=== PATIENT | female | born 1950 | race Caucasian/White ===

== ENCOUNTER 2016-03-24 13:00 | Inpatient (IN) | payer OTHER ==
[~2016-03-24] VITALS: Ht 170.2 cm; Wt 134.7 kg
[~2016-03-24 13:00] MED LIST: /METO25TAB PO; ACET50TA PO; ACET65TA OR; ACTIVITY; ADV250INH INH; ALBU17IN INH; ALEV220T26 PO; ALEVE OR; ASPI1TAB PO; ASPI81TA7 PO; ATOR40TA PO; AUGM875T27 PO; AZIT500T2 PO; CLAR1TAB2 PO; CLAR5CHW OR; COLA100C2 PO; DOCU100C PO; ECOT325T5 OR; FOLLOW UP; FURO1TAB15 PO; FURO40TA2 PO; HYDR12.56 PO; HYDR12CA PO; HYDR25TA6 OR; LASI20TA PO; LASI40TA PO; LIPI80TA PO; LISI-538 PO; LISI20TA5 PO; LOPR50TA OR; LORA10TA2 PO; METF500T PO; METO12TA PO; METO25TAB PO; MILKSUS OR; MULTIVIT PO; PLAV75TA2 OR; POTA10CA PO; PRAD150C PO; PRED10TA PO; PRED10TA2 PO; PRED20TA PO; PROA1AER INH; SPIR1CAP INH; SYMB16INH INH; TIOT18INH INH; TYLE500T78 PO; VIBR100C PO; VICO5TAB OR; VICODIN OR; VITMTA PO; XANA0.25 OR; ZOCO80TA OR; [UNRECOGNIZED DRUG - OTHER]; [UNRECOGNIZED DRUG - SUPPLY]; aleve OR
[2016-03-24] MEDS ORDERED: methylPREDNISolone INJ 125 MG/2 ML VIAL (J2930) As Ordered ONE (13:18)
[2016-03-24] MEDS ORDERED: IPRATROPIUM 0.5MG/ALBUTEROL 2.5MG INH SOL UD 3ML (DUONEB)(J7620) As Ordered ONE (13:22)
[2016-03-24 13:43] LABS: ABG DEVICE NASAL CANN; ABG HCO3 23.8 MEQ/L (22.0-26.0); ABG PARTIAL PRESSURE CO2 45.3 mmHg (35.0-45.0); ABG PARTIAL PRESSURE O2 84.4 mmHg (75.0-100.0); ABG STANDARD HCO3 22.8 MEQ/L (22.0-26.0); ABG TOTAL CO2 25.2 MEQ/L (23.0-31.0); ABG pH (ARTERIAL) 7.339 UNITS (7.350-7.450)
--- NOTE | 2016-03-24 13:48 | REP ---
Clinical: Shortness of breath. Technique: PA and lateral. Comparison: 08/03/2015. Findings: Opacification of the left mid to lower lung zone suggests chronic changes with superimposed atelectasis/infiltrate and effusion. Medial right basilar atelectasis cannot be as excluded as well. Cardiomegaly appears similar to prior examination although the contour raises the possibility of underlying pericardial effusion. No pneumothorax. Skeletal structures demonstrate degenerative changes. Impression: Chronic stable changes. Cannot exclude superimposed bilateral atelectasis/infiltrates (left greater than right) and moderate left pleural effusion. Cardiac silhouette raises the possibility of underlying pericardial effusion. Signed by Linden Bruno MD 03/24/2016 01:39 P
[2016-03-24 14:29] LABS: BASO % 0.2 % (0.0-1.0); EOS # 0.1 K/mm3 (0.0-0.50); EOS % 0.8 % (0.0-3.0); LARGE UNSTAINED CELL # 0.1 K/mm3 (0.0-0.4); LYMPH # 0.8 K/mm3 (1.5-4.5); LYMPH % 7.4 % (24.0-44.0); MEAN CORPUSCULAR HEMOGLOBIN 24.8 pg (27.0-33.0); MEAN CORPUSCULAR HGB CONC 27.5 g/dl (32.0-36.5); MEAN CORPUSCULAR VOLUME 90.2 fl (80.0-96.0); MONO # 0.4 K/mm3 (0.0-0.8); MONO % 4.7 % (0.0-5.0); NEUTROPHILS % 85.9 % (36.0-66.0); PLATELET COUNT, AUTOMATED 338 k/mm3 (150-450); RED CELL DISTRIBUTION WIDTH 17.7 % (11.5-14.5); WHITE BLOOD COUNT 9.3 K/mm3 (4.0-10.0)
[2016-03-24 14:43] LABS: CALCIUM LEVEL 8.5 MG/DL (8.8-10.2); CREATININE FOR GFR 1.22 MG/DL (0.55-1.02); GLOMERULAR FILTRATION RATE 46.9 (>45); POTASSIUM SERUM 3.4 MEQ/L (3.5-5.1)
[2016-03-24] MEDS ORDERED: FURO1TAB15 PO (15:02)
[2016-03-24] MEDS ORDERED: LISI2.5T3 PO (15:02)
[2016-03-24] MEDS ORDERED: FLON1SPR (15:02)
[2016-03-24] MEDS ORDERED: BREO1INH3 INH (15:02)
[2016-03-24] MEDS ORDERED: METO12TA PO (15:02)
[2016-03-24] MEDS ORDERED: MUCI600T34 PO (15:02)
[2016-03-24] MEDS ORDERED: FURO40TA2 PO (15:02)
[2016-03-24] MEDS ORDERED: ONDANSETRON 4MG/2ML VIAL (J2405) As Ordered ONE (15:07)
[2016-03-24] MEDS ORDERED: cefTRIAXone SOD 1 GM VIAL (J0696) As Ordered ONE (15:28)
[2016-03-24] MEDS ORDERED: VANCOMYCIN HCL 1,000 MG, VIAL MATE ADAPTER 1 EACH in D5W 250 ML IV SCH (17:00)
[2016-03-24] MEDS ORDERED: PIPERACILLIN/TAZOBACTAM SOD 3.375 GM in D5W MINI-BAG PLUS 50 ML IV SCH (17:00)
[2016-03-24] MEDS ORDERED: ALBUTEROL SULFATE 2.5 MG/0.5 ML INH NEB SOLN NEB PRN (17:00)
[2016-03-24] MEDS ORDERED: ALBUTEROL 90 MCG/ACT 8GM HFA INHALER INH PRN (17:00)
[2016-03-24] MEDS ORDERED: DEXTROSE 50% 50 ML SYRINGE IV PRN (17:45)
[2016-03-24] MEDS ORDERED: GLUCOSE 4 GM CHEW TABLET PO PRN (17:45)
[2016-03-24] MEDS ORDERED: GLUCAGON FOR INJ 1 MG VIAL (J1610) SC PRN (17:45)
--- NOTE | 2016-03-24 18:28 | HPE ---
DATE OF ADMISSION: 03/24/2016 PRIMARY CARE PROVIDER: Dr. Ho in the [facility]. HISTORY OF PRESENT ILLNESS: This patient is a 66-year-old female with a past medical history significant for myocardial infarction, congestive heart failure (CHF), chronic obstructive pulmonary disease (COPD), diabetes, hypercholesterolemia, hypertension, who presented to [facility] on 03/24/2016 for worsening shortness of breath. The patient stated that she has increased shortness of breath, especially with any type of movement and symptoms have been progressively worse, and the patient started to have increased oxygen requirement. At baseline, the patient is 3 liters nasal cannula for her chronic COPD. The patient denies any sputum production. Denies any worsening cough. Denies any wheezing. The patient denies any lower extremity swelling. Denies any fever or chills. Other associated symptoms include that the patient started having increasing diarrhea for the past week. At baseline, the patient has a bowel movement once; however, for the past week, the patient started having two to three bowel movements and those stools are almost watery with minimal formed stool. Last hospitalization was in September 2013. Denies any recent sick contacts. When the patient arrived in the emergency room, the patient was found to have a blood pressure of 80/39 with a respiration rate of 24, oxygen saturation running between 85 to 90 with 2 to 3 liters nasal cannula. IV bolus was given, and the patient's systolic blood pressure started to rise above 100. The hospitalist team was called for admission. ALLERGIES: SULFA (rash). HOME MEDICATIONS: - Ventolin two inhalation every 4 hours as needed for shortness of breath - aspirin 81 mg by mouth daily - atorvastatin 40 mg by mouth daily - Pradaxa 150 mg by mouth twice a day - Flonase two sprays nasally for nasal congestion - Breo one puff inhalation daily - Lasix 80 mg by mouth daily - Lasix 40 mg by mouth at night - Mucinex 600 mg by mouth twice a day - Lisinopril 245 mg by mouth daily - Loratadine 10 mg by mouth daily as needed for allergies - metformin 500 mg by mouth twice a day - metoprolol 25 mg by mouth twice a day - multivitamin one tablet by mouth daily - potassium chloride 10 mEq by mouth twice a day - Spiriva inhalation daily PAST MEDICAL HISTORY: 1. COPD on 3 liters nasal cannula 2. Diastolic congestive heart failure (CHF), grade 2. 3. Obstructive sleep apnea. In the process of getting repeated sleep study for continuous positive airway pressure (CPAP) application. 4. Coronary artery disease, status post two stents. 5. Dyslipidemia. 6. Severe hypertension. 7. Morbid obesity. 8. Ischemic bowel. PAST SURGICAL HISTORY: 1. Colon resection in 2009 for ischemic bowel. 2. Hyatal hernia repair times two. 3. Coronary artery stents times two. 4. Right lumpectomy. SOCIAL HISTORY: The patient quit smoking 2014. The patient used to smoke one pack daily for approximately 48 years. Denies alcohol use. Last drink was in 2004. Denies any recreational drug use. REVIEW OF SYSTEMS: GENERAL: No fever. No chills. HEENT: No change in vision. No auditory changes. CARDIOVASCULAR: No chest pain noted. No palpitations. RESPIRATORY: Increased worsening shortness of breath exacerbated by any type of movement. Denies any wheezes. Denies any sputum changes. Denies any increase of cough or frequency. GASTROINTESTINAL: Diarrhea for the past week, stool is mainly water with no formed stool. No nausea. No vomiting. MUSCULOSKELETAL: No muscle pain or joint pain. NEUROLOGIC: No numbness or tingling. OBJECTIVE: VITAL SIGNS: Blood pressure is 80/39, pulse is 85, respirations 24, temperature is 98.1, pulse oximetry is 90% with 2 to 3 liters nasal cannula. Body weight is 148 kg. Body height is 170 cm. GENERAL: Fatigued. Mild distress secondary to difficulty breathing. Alert and oriented times three. HEENT: Normocephalic, atraumatic. Extraocular muscles intact. CARDIOVASCULAR: Positive S1, S2. Regular rate. LUNGS: Decreased breath sounds bilaterally. No wheezes appreciated. Mild crackles mainly on the left lower lobe. ABDOMEN: Morbidly obese, soft, nontender, nondistended. Bowel sounds present. EXTREMITIES: Mild bilateral lower extremity edema. No cyanosis. NEUROLOGIC: Sensation to fine touch grossly intact. Muscle strength 5/5. LABORATORY DATA: WBC 9.3, hemoglobin is 9.6, hematocrit is 34.8, platelet count is 338. Sodium is 142, potassium 3.4, chloride is 106, carbon dioxide 27, BUN 13, creatinine 1.22, GFR is 46.9, fasting glucose 103, lactic acid 4.1, calcium is 8.5, total CK is 33, troponin I is 0.04, BNP is 427. IMAGING STUDIES: Chest x-ray shows chronic stable changes. Cannot exclude superimposed bilateral atelectasis/infiltrate, left greater than right. Moderate left pleural effusion. SOFA score raises the probability of underlying pericardial effusion. CT of the chest without contrast, preliminary results show moderate left pleural effusion with basilar lingula atelectasis. Pulmonary vascular congestion. ASSESSMENT AND PLAN: 1. Acute respiratory distress. The patient will be admitted to the progressive care unit (PCU) under inpatient status. Currently, the patient presented with acute Sequential Organ Failure Assessment (SOFA) score of 2. The patient presents with significant hypotension with tachypnea. At this moment, we will panculture the patient and empirically start vancomycin and Zosyn and adjust the antibiotic regimen based on the culture results. The patient does have a history of congestive heart failure (CHF). The patient has chronic pleural effusion at baseline. However, at this moment, the patient does have a lactic acid of 4.1. IV fluid is warranted at the moment. Based on imaging studies and history, the source of infection could be either respiratory system versus gastrointestinal system. 2. Chronic obstructive pulmonary disease (COPD). Currently, the patient has respiratory distress. We are in the process of ruling out any infectious processes. The patient will have breathing treatment as needed, and at baseline the patient is on 3 liters nasal cannula for her COPD. Continue home breathing therapy. 3. Diastolic congestive heart failure (CHF) grade 2. The patient does not have worsening bilateral lower extremity swelling. The patient does have pleural effusions, left greater than right. When compared to CT today and in 2014, there is some worsening of the pleural effusion; however, currently, the patient has an elevated lactic acid with severe hypotension with a systolic blood pressure of 80s. We will start the patient on gentle hydration. If the patient starts having CHF exacerbation symptoms, we will slow down the fluid. 4. Obn-wqvojyk-hgnxxzgsd diabetes. We will hold metformin. The patient will be on sliding scale. 5. Hypercholesterolemia. The patient is on atorvastatin. 6. Hypertension. The patient has been taking metoprolol for her blood pressure and also Lasix. Lasix and metoprolol will be on hold with holding parameters. 7. Obstructive sleep apnea. The patient stated that she will have a repeated sleep study in March to apply for her CPAP. 8. History of myocardial infarction. The patient is on aspirin, metoprolol and Lisinopril at baseline. At this moment, the blood pressure medication is on hold due to hypotension. 9. Deep vein thrombosis (DVT) prophylaxis. The patient is taking Pradaxa.
--- NOTE | 2016-03-24 18:30 | EDDOCDS ---
Physician Documentation [facility] Name: Francisca Magaña Age: 66 yrs Sex: Female : 1950 Arrival Date: 03/24/2016 Time: 13:00 Bed 4 Private MD: [facility] Disposition: 03/24/16 15:10 Hospitalization ordered by Shanice Bang for Inpatient Admission. Preliminary diagnosis are Chronic obstructive pulmonary disease with (acute) exacerbation, Pleural effusion, not elsewhere classified, Hypotension. - Bed requested for PCU. - Status is Inpatient Admission. jmb - Condition is Stable. - Problem is new. - Symptoms are unchanged. Historical: - Allergies: SULFA (SULFONAMIDES) (Rash); - Home Meds: 1. Pradaxa 150 mg oral cap 1 cap 2 times per day 2. metoprolol tartrate 25 mg Oral tab 12.5 mg 2 times per day 3. atorvastatin 40 mg oral tab 1 tab once daily 4. ProAir HFA 108mcg inhalation HFAA 2 puffs every 6 hours every 2 hours as needed for SOB 5. Spiriva with HandiHaler 18 mcg Inhl CpDv 1 cap once daily 6. Symbicort 160-4.5 mcg/actuation inhalation HFAA 2 puffs 2 times per day 7. Breo Ellipta 200-25 mcg/dose inhalation dsdv 1 puff once daily 8. potassium chloride 10 mEq Oral TbER 1 tab 2 times per day 9. lisinopril 2.5 mg oral tab once daily 10. furosemide 80 mg oral tab 1 tab once daily 11. metformin 500 mg Oral tab 1 tab 2 times per day 12. hydrochlorothiazide 12.5 mg Oral tab 1 tab once daily 13. multivitamin Oral tab 1 tab daily 14. loratadine 10 mg Oral cap 10 mg daily as needed 15. aspirin 81 mg Oral TbEC 1 tab once daily 16. docusate calcium 240 mg Oral cap 1 cap 2 times per day - PMHx: CAD; CHF; COPD; Diabetes - NIDDM: controlled; Hypercholesterolemia; Hypertension; Myocardial infarction; Obesity; Sleep Apnea w/o CPAP; - PSHx: Colon Resection; Coronary Stents; Hernia repair; hernia revision; tendon repaired; - Social history: Smoking status: Patient states former smoker of tobacco. No barriers to communication noted, The patient speaks fluent Kosovan. - Family history: Not pertinent. - : The pt / caregiver states he / she is on anticoagulants: Pradaxa (Dabigatran) Home medication list is obtained from the patient, patients' pharmacy. [employer] import data. - Exposure Risk Screening:: None identified. Vital Signs: 03/24 13:24 BP 92 / 55; Pulse 85; Resp 24; Temp 98.1(O); Pulse Ox 90% on 2 lpm NC; Weight 148.32 kg dem1 / 326.99 lbs; Height 5 ft. 7 in. (170.18 cm); Pain 8/10; 14:19 BP 109 / 53 (auto/); jmb 14:19 Pulse 84 MON; Pulse Ox 97% ; jmb 14:20 BP 80 / 39 RA Supine (man/lg); jrd 15:08 BP 118 / 56 (auto/); jmb 15:08 Pulse 94 MON; Pulse Ox 93% ; jmb 15:38 BP 125 / 68 (auto/); jmb 15:38 Pulse 96 MON; Pulse Ox 87% ; jmb 15:50 BP 122 / 69 (auto/); jmb 15:50 Pulse 92 MON; Pulse Ox 91% ; jmb 15:53 BP 121 / 56 (auto/); jmb 15:54 Pulse 92 MON; Pulse Ox 90% ; jmb 16:08 BP 142 / 83 (auto/); jmb 16:09 Pulse 94 MON; Pulse Ox 90% ; jmb 16:38 BP 112 / 57 (auto/); jmb 16:39 Pulse 90 MON; Pulse Ox 93% ; jmb 16:53 BP 108 / 61 (auto/); jmb 16:54 Pulse 92 MON; Pulse Ox 96% ; jmb 17:08 BP 107 / 59 (auto/); jmb 17:09 Pulse 94 MON; Pulse Ox 89% ; jmb 17:38 BP 124 / 58 (auto/); jmb 17:39 Pulse 92 MON; Pulse Ox 91% ; jmb 18:17 BP 124 / 60; Pulse 93; Resp 22; Temp 97.8(O); Pulse Ox 91% on 4 lpm NC; Pain 0/10; jmb 13:24 Body Mass Index 51.21 (148.32 kg, 170.18 cm) dem1 MDM: 13:10 Continuous Improvement Intern/Pulse Ox/q 30 min VS ordered. br1 13:10 IV Saline Lock ordered. br1 13:10 Oxygen at 4L/Min NC or Home dosage ordered. br1 13:10 Rhythm Strip to chart ordered. br1 13:10 Undress patient appropriately for examination ordered. br1 13:12 B-Type Natiuretic Peptide Ordered. EDMS 13:12 Basic Metabolic Profile Ordered. EDMS 13:12 CBC with Diff Ordered. EDMS 13:12 Chest, 2 View (pa\E\lat) Ordered. EDMS 13:12 ECG WITH READING ER PHYS+CARDIAG ordered. EDMS 13:13 Albuterol-Ipratropium 1 neb Nebulizer every 20 minutes x3 ordered. br1 13:13 Call Respiratory ordered. br1 13:13 -Influenza A&B Rapid Antigen - Nose Ordered. EDMS 13:14 Solu-MEDROL 125 mg IVP once ordered. br1 13:14 -Arterial Blood Gas Ordered. EDMS 13:15 CARDIAC INJURY PROFILE Ordered. EDMS 13:15 TROPONIN Ordered. EDMS 13:31 Misc. Nursing Order ordered. br1 13:40 -Blood Culture (Adults Only), peripheral from different site, or from device/port/PICC br1 etc. if present ordered. 13:41 Lactic Acid (Rangel tube on ice) Ordered. EDMS 13:42 -Blood Culture Ordered. EDMS 14:15 -Arterial Blood Gas Reviewed. br1 14:15 Chest, 2 View (pa\E\lat) Reviewed. br1 14:16 -Blood Culture (Adults Only), peripheral from different site, or from device/port/PICC bcj etc. if present complete. 14:20 NS 0.9% 500 ml IV at bolus once ordered. br1 14:21 BED REQUEST+ADM ordered. EDMS 14:22 Ondansetron 4 mg IVP once ordered. br1 14:23 Call Respiratory complete. rs6 14:46 B-Type Natiuretic Peptide Reviewed. br1 14:46 Basic Metabolic Profile Reviewed. br1 14:46 CBC with Diff Reviewed. br1 14:46 -Influenza A&B Rapid Antigen - Nose Reviewed. br1 14:46 CARDIAC INJURY PROFILE Reviewed. br1 14:46 TROPONIN Reviewed. br1 14:59 Financial registration complete. hs2 15:05 Lactic Acid (Rangel tube on ice) Reviewed. br1 15:06 CT Chest Without Contrast Ordered. EDMS 15:06 Recheck B/P ordered. br1 15:06 cefTRIAXone 2 grams IVPB once over 30 mins; dilute in 50mL of NS or D5W ordered. br1 15:21 [facility] Payment Agreement was scanned into [employer] and attached to record. hs2 16:47 Admission / Observation Status ordered. EDMS 16:47 CONSISTENT CARBOHYDRATES ordered. EDMS 16:49 URINALYSIS Ordered. EDMS 16:49 BLOOD CULTURES Ordered. EDMS 16:49 BLOOD CULTURES Ordered. EDMS 16:51 GASTROINTESTINAL (GI) PANEL Ordered. EDMS 17:10 SPUTUM CULTURE AND GRAM STAIN Ordered. EDMS 17:32 CARDIAC MARKER PANEL Ordered. EDMS 17:34 LACTIC ACID LEVEL, LACTATE Ordered. EDMS Administered Medications: 13:30 Drug: Albuterol-Ipratropium 1 neb [ipratropium-albuterol 0.5 mg-3 mg(2.5 mg base)/3 mL js11 nebulization soln (1 neb)] Route: Nebulizer; 13:50 Drug: Albuterol-Ipratropium 1 neb [ipratropium-albuterol 0.5 mg-3 mg(2.5 mg base)/3 mL js11 nebulization soln (1 neb)] Route: Nebulizer; 14:01 Drug: Albuterol-Ipratropium 1 neb [ipratropium-albuterol 0.5 mg-3 mg(2.5 mg base)/3 mL js11 nebulization soln (1 neb)] Route: Nebulizer; 14:16 Drug: Solu-MEDROL 125 mg [Solu-Medrol 500 mg intravenous solution (125 mg)] Route: IVP; bcj Site: right forearm; 14:55 Drug: NS 0.9% 500 ml [sodium chloride 0.9 % intravenous solution] Route: IV; Rate: bcj bolus; Site: right forearm; 15:12 Drug: Ondansetron 4 mg [ondansetron HCl 2 mg/mL intravenous solution (2 mL)] Route: jmb IVP; Site: left forearm; 15:38 Drug: cefTRIAXone 2 grams [ceftriaxone 1 gram solution for injection] Route: IVPB; jmb Infused Over: 30 mins; Site: left forearm; Signatures: Dispatcher [employer] EDMS Kevin Rothman RN RN bcj Roggie, Brian, MD MD br1 Dino Bains,RN RN jmb Tanesha Ryan, RN RN sls2 Yamileth Coombs, LINEN ROOM ATTENDANT LINEN ROOM ATTENDANT rs6 Carlee Bell, Reg Reg hs2 Tato San js11 The chart was reviewed and I authenticate all verbal orders and agree with the evaluation and treatment provided.Corrections: (The following items were deleted from the chart) 13:15 13:12 CARDIAC INJURY PROFILE+LAB ordered. EDMS EDMS 13:15 13:12 TROPONIN+LAB ordered. EDMS EDMS 16:51 16:49 GASTROINTESTINAL (GI) PANEL ordered. EDMS EDMS Attachments: 15:21 [facility] Payment Agreement hs2 MTDD
--- NOTE | 2016-03-24 18:30 | EDDOCDS ---
Nurse's Notes [facility] Name: Francisca Magaña Age: 66 yrs Sex: Female : 1950 Arrival Date: 03/24/2016 Time: 13:00 Bed 4 Private MD: [facility] Diagnosis: Chronic obstructive pulmonary disease with (acute) exacerbation;Pleural effusion, not elsewhere classified;Hypotension Presentation: 03/24 13:34 Presenting complaint: Patient states: increasing SOB over last week. more SOB with any j activity. denies chest pain. denies swollen legs. has had diarrhea x 1 week. + cough no sputum. Acuity level changed due to the patient meeting SIRS criteria. Adult Sepsis Screening: Patient has a respiratory rate of greater than or equal to 22 (1 point). The patient does not have new or worsening altered mentation. Systolic blood pressure is less than or equal to 100 (1 point). Patient has a qSOFA Score of 2. Infection Criteria- Patient has cough and/or SOB Sepsis Screen Results: Positive Sepsis Screen- Pt has a qSOFA Score of 2 or more and at least one Infection Criteria. Patient made [place] Level 2. Suicide/Homicide risk assessment- the patient denies having any suicidal and/or homicidal ideations. 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 Transition of care: patient was not received from another setting of care. 13:34 Acuity: [place] Level 3 [facility] 13:34 Method Of Arrival: Ambulance [facility] 13:34 Acuity: [place] Level 2 [facility] Triage Assessment: 13:46 General: Appears in no apparent distress, comfortable, Behavior is cooperative. Pain: bcj Denies pain. Respiratory: Onset: The symptoms/episode began/occurred yesterday. Historical: - Allergies: SULFA (SULFONAMIDES) (Rash); - Home Meds: 1. Pradaxa 150 mg oral cap 1 cap 2 times per day 2. metoprolol tartrate 25 mg Oral tab 12.5 mg 2 times per day 3. atorvastatin 40 mg oral tab 1 tab once daily 4. ProAir HFA 108mcg inhalation HFAA 2 puffs every 6 hours every 2 hours as needed for SOB 5. Spiriva with HandiHaler 18 mcg Inhl CpDv 1 cap once daily 6. Symbicort 160-4.5 mcg/actuation inhalation HFAA 2 puffs 2 times per day 7. Breo Ellipta 200-25 mcg/dose inhalation dsdv 1 puff once daily 8. potassium chloride 10 mEq Oral TbER 1 tab 2 times per day 9. lisinopril 2.5 mg oral tab once daily 10. furosemide 80 mg oral tab 1 tab once daily 11. metformin 500 mg Oral tab 1 tab 2 times per day 12. hydrochlorothiazide 12.5 mg Oral tab 1 tab once daily 13. multivitamin Oral tab 1 tab daily 14. loratadine 10 mg Oral cap 10 mg daily as needed 15. aspirin 81 mg Oral TbEC 1 tab once daily 16. docusate calcium 240 mg Oral cap 1 cap 2 times per day - PMHx: CAD; CHF; COPD; Diabetes - NIDDM: controlled; Hypercholesterolemia; Hypertension; Myocardial infarction; Obesity; Sleep Apnea w/o CPAP; - PSHx: Colon Resection; Coronary Stents; Hernia repair; hernia revision; tendon repaired; - Social history: Smoking status: Patient states former smoker of tobacco. No barriers to communication noted, The patient speaks fluent Kazakh. - Family history: Not pertinent. - : The pt / caregiver states he / she is on anticoagulants: Pradaxa (Dabigatran) Home medication list is obtained from the patient, patients' pharmacy. [employer] import data. - Exposure Risk Screening:: None identified. Screenin:14 Screening information is obtained from the patient. Fall risk: At risk due to gait bcj disturbance, The following interventions are performed due to a positive Fall Risk Screen: Fall Risk is added to Special Handling on the patient Summary Screen. A Fall Risk Bracelet was applied to the patient. Side Rails are placed in the up position. A Call Shah is given with instruction to call for help when getting out of bed. Fall Alert bracelet is placed on the patient. Assistance ADL's: requires no assistance with activities of daily living. Abuse/DV Screen: The patient / caregiver reports he/she is: not in a situation that causes fear, pain or injury. Nutritional screening: No deficits noted. home support is adequate. 18:17 Advance Directives: Currently, there is no health care proxy. There is no active DNR jmb order. There is no living will. There is no Power of Ply Cutter. Assessment: 14:14 General: Appears in no apparent distress, comfortable, Behavior is cooperative. Pain: bcj Denies pain. Cardiovascular: Rhythm is sinus rhythm Chest pain is denied. Respiratory: Airway is patent Respiratory effort is even, unlabored, Respiratory pattern is regular, Breath sounds with rhonchi bilaterally. Breath sounds are diminished bilaterally. Derm: Skin is pink, warm & dry. 15:12 General: Appears in no apparent distress, Behavior is appropriate for age, cooperative, jmb Patient laying on stretcher on left side. Patient denies discomfort. Patient reports being able to breath better when she does not move. Patient blood pressure circulating every 15 minutes per provider orders. Patient currently at CT. NO voiced complaints at this time. . Neurological: Level of Consciousness is awake, alert, obeys commands, Oriented to person, place, time, Speech is normal, Facial symmetry appears normal, Facial symmetry: tongue is midline. Cardiovascular: Capillary refill < 3 seconds Heart tones present Pulses are all present. Rhythm is sinus rhythm No ectopy. Respiratory: Airway is patent Respiratory effort is even, unlabored, Respiratory pattern is regular, symmetrical, Breath sounds are diminished bilaterally. GI: Abdomen is obese, Bowel sounds present X 4 quads. Abd is soft and non tender X 4 quads. Derm: Skin is pink, warm & dry. Musculoskeletal: Range of motion intact in all extremities. 15:38 General: Appears in no apparent distress, comfortable, Behavior is appropriate for age, jmb cooperative, Patient laying on stretcher sitting up. NO voiced complaints at this time. . Neurological: Level of Consciousness is awake, alert, obeys commands, Oriented to person, place, time. Respiratory: Airway is patent Respiratory effort is even, unlabored, Respiratory pattern is regular, symmetrical. 15:46 General: Appears in no apparent distress, comfortable, Behavior is appropriate for age, jmb cooperative, Patient sitting up on stretcher, continues with some shortness of breath. Patient on 4 liters oxygen via nasal cannula. NO voiced complaints at this time. . Neurological: Level of Consciousness is awake, alert, obeys commands, Oriented to person, place, time. Respiratory: Airway is patent Respiratory effort is even, unlabored, Respiratory pattern is regular, symmetrical. 16:30 General: Appears in no apparent distress, comfortable, Behavior is appropriate for age, jmb cooperative, Patient laying on stretcher, no voiced complaints at this time. . Neurological: Level of Consciousness is awake, alert, obeys commands, Oriented to person, place, time. Respiratory: Airway is patent Respiratory effort is even, unlabored, Respiratory pattern is regular, symmetrical. 17:30 General: Appears in no apparent distress, comfortable, Behavior is appropriate for age, jmb cooperative. Neurological: Level of Consciousness is awake, alert, obeys commands, Oriented to person, place, time. Respiratory: Airway is patent Respiratory effort is even, unlabored, Respiratory pattern is regular, symmetrical. 18:02 General: SBAR faxed and tubed to PCU. jmb 18:24 General: PAtient ready for transfer to PCU.. jmb Vital Signs: 13:24 BP 92 / 55; Pulse 85; Resp 24; Temp 98.1(O); Pulse Ox 90% on 2 lpm NC; Weight 148.32 dem1 kg; Height 5 ft. 7 in. (170.18 cm); Pain 8/10; 14:19 BP 109 / 53 (auto/); jmb 14:19 Pulse 84 MON; Pulse Ox 97% ; jmb 14:20 BP 80 / 39 RA Supine (man/lg); jrd 15:08 BP 118 / 56 (auto/); jmb 15:08 Pulse 94 MON; Pulse Ox 93% ; jmb 15:38 BP 125 / 68 (auto/); jmb 15:38 Pulse 96 MON; Pulse Ox 87% ; jmb 15:50 BP 122 / 69 (auto/); jmb 15:50 Pulse 92 MON; Pulse Ox 91% ; jmb 15:53 BP 121 / 56 (auto/); jmb 15:54 Pulse 92 MON; Pulse Ox 90% ; jmb 16:08 BP 142 / 83 (auto/); jmb 16:09 Pulse 94 MON; Pulse Ox 90% ; jmb 16:38 BP 112 / 57 (auto/); jmb 16:39 Pulse 90 MON; Pulse Ox 93% ; jmb 16:53 BP 108 / 61 (auto/); jmb 16:54 Pulse 92 MON; Pulse Ox 96% ; jmb 17:08 BP 107 / 59 (auto/); jmb 17:09 Pulse 94 MON; Pulse Ox 89% ; jmb 17:38 BP 124 / 58 (auto/); jmb 17:39 Pulse 92 MON; Pulse Ox 91% ; jmb 18:17 BP 124 / 60; Pulse 93; Resp 22; Temp 97.8(O); Pulse Ox 91% on 4 lpm NC; Pain 0/10; jmb 13:24 Body Mass Index 51.21 (148.32 kg, 170.18 cm) [facility] Vitals: 13:24 Log In Time N/A - ambulance arrival. dem1 14:14 Refer to monitor trend for complete vital signs trends. [facility] ED Course: 13:01 Patient visited by Yamileth Coombs PCA. rs6 13:01 Carmelina Choudhary is Private Physician. rs6 13:01 [facility] is Private Physician. rs6 13:01 Patient moved to Waiting rs6 13:01 Patient moved to 4 rs6 13:03 Noble Nelson MD is Attending Physician. br1 13:10 Patient visited by Noble Nelson MD. br1 13:19 EKG done. (by ED staff). Reviewed by Noble Nelson MD. dem1 13:24 Patient visited by Eriwn Wall. [facility] 13:24 front desk monitor on. Pulse ox on. NIBP on. dem1 13:25 Patient visited by Erwin Wall. dem1 13:36 Triage Initiated bcj 13:39 -Arterial Blood Gas Sent. js11 13:47 Patient visited by Kevin Rothman RN. j 14:07 Chest, 2 View (pa\E\lat) Returned. EDMS 14:14 No apparent distress. Resting quietly. awaiting re-evaluation by ER physician. j 14:14 The patient / caregiver is instructed regarding the plan of care and ED course. Patient [facility] has correct armband on for positive identification. Placed in gown. Bed in low position. Call light in reach. Side rails up X2. 14:14 Inserted saline lock: 20 gauge in left forearm. Labs drawn. (by ED staff). Sent per [facility] order to lab. Labs/Blood culture drawn. O2 via nasal cannula \T\ 3L/min. 14:16 Patient visited by Kevin Rothman, TAJ. j 14:16 Lactic Acid (Rangel tube on ice) Sent. bcj 14:16 -Blood Culture Sent. bcj 14:16 TROPONIN Sent. bcj 14:16 CARDIAC INJURY PROFILE Sent. bcj 14:17 -Influenza A&B Rapid Antigen - Nose Sent. bcj 15:02 Shanice Bang evaluation assistant. ys2 15:10 Shanice Bang is Hospitalizing Provider. br1 15:14 Patient visited by Dino Bains RN. garrick 15:21 [facility] Payment Agreement was scanned into [employer] and attached to record. hs2 15:48 Patient visited by Dino Bains RN. garrick 16:31 Patient visited by Dino Bains RN. garrick 17:31 Patient visited by Dino Bains RN. garrick 18:17 No procedures done that require assistance. garrick Administered Medications: 13:30 Drug: Albuterol-Ipratropium 1 neb [ipratropium-albuterol 0.5 mg-3 mg(2.5 mg base)/3 mL js11 nebulization soln (1 neb)] Route: Nebulizer; 13:50 Drug: Albuterol-Ipratropium 1 neb [ipratropium-albuterol 0.5 mg-3 mg(2.5 mg base)/3 mL js11 nebulization soln (1 neb)] Route: Nebulizer; 14:01 Drug: Albuterol-Ipratropium 1 neb [ipratropium-albuterol 0.5 mg-3 mg(2.5 mg base)/3 mL js11 nebulization soln (1 neb)] Route: Nebulizer; 14:16 Drug: Solu-MEDROL 125 mg [Solu-Medrol 500 mg intravenous solution (125 mg)] Route: IVP; bcj Site: right forearm; 14:55 Drug: NS 0.9% 500 ml [sodium chloride 0.9 % intravenous solution] Route: IV; Rate: bcj bolus; Site: right forearm; 15:12 Drug: Ondansetron 4 mg [ondansetron HCl 2 mg/mL intravenous solution (2 mL)] Route: jmb IVP; Site: left forearm; 15:38 Drug: cefTRIAXone 2 grams [ceftriaxone 1 gram solution for injection] Route: IVPB; garrick Infused Over: 30 mins; Site: left forearm; RT: 13:30 Initial Med Neb Given as ordered Patient was instructed and evaluated on procedure js11 Patient tolerated procedure well without adverse effect. O2 via nasal cannula \T\ 4L/min. Respiratory: Breath sounds are diminished in left upper lobe and left lower lobe. 13:40 ABG's drawn from left radial artery allens test done and positive pressure held for 5 js11 minutes no bleeding noted specimen sent pt. tolerated well. 13:50 Subsequent Med Neb Given as ordered Patient tolerated procedure well without adverse js11 effect. Respiratory: Breath sounds are diminished in left upper lobe and left lower lobe. 14:02 Subsequent Med Neb Given as ordered Patient tolerated procedure well without adverse js11 effect. Respiratory: Breath sounds are diminished in left upper lobe and left lower lobe. Order Results: Lab Order: B-Type Natiuretic Peptide; SPEC'M 03/24/16 14:08 Test: BRAIN NATRIURETIC PEPTIDE; Value: 427; Range: <100; Abnormal: Above high normal; Units: PG/ML; Status: F Lab Order: Basic Metabolic Profile; SPEC'M 03/24/16 14:08 Test: GLUCOSE, FASTING; Value: 103; Range: 80-110; Units: MG/DL; Status: F Test: BLOOD UREA NITROGEN; Value: 13; Range: 7-18; Units: MG/DL; Status: F Test: CREATININE FOR GFR; Value: 1.22; Range: 0.55-1.02; Abnormal: Above high normal; Units: MG/DL; Status: F Test: GLOMERULAR FILTRATION RATE; Value: 46.9; Range: >45; Status: F Test: SODIUM LEVEL; Value: 142; Range: 136-145; Units: MEQ/L; Status: F Test: POTASSIUM SERUM; Value: 3.4; Range: 3.5-5.1; Abnormal: Below low normal; Units: MEQ/L; Status: F Test: CHLORIDE LEVEL; Value: 106; Range: 98-107; Units: MEQ/L; Status: F Test: CARBON DIOXIDE LEVEL; Value: 27; Range: 21-32; Units: MEQ/L; Status: F Test: ANION GAP; Value: 9; Range: 8-16; Units: MEQ/L; Status: F Test: CALCIUM LEVEL; Value: 8.5; Range: 8.8-10.2; Abnormal: Below low normal; Units: MG/DL; Status: F Test Note: ; Units are mL/min/1.73 m2 Chronic Kidney Disease Staging per NKF: Stage I & II GFR >=60 Normal to Mildly Decreased Stage III GFR 30-59 Moderately Decreased Stage IV GFR 15-29 Severely Decreased Stage V GFR <15 Very Little GFR Left ESRD GFR <15 on [employer]IC Lab Order: CBC with Diff; SPEC'M 03/24/16 14:08 Test: WHITE BLOOD COUNT; Value: 9.3; Range: 4.0-10.0; Units: K/mm3; Status: F Test: RED BLOOD COUNT; Value: 3.86; Range: 4.00-5.40; Abnormal: Below low normal; Units: M/mm3; Status: F Test: HEMOGLOBIN; Value: 9.6; Range: 12.0-16.0; Abnormal: Below low normal; Units: g/dl; Status: F Test: HEMATOCRIT; Value: 34.8; Range: 36.0-47.0; Abnormal: Below low normal; Units: %; Status: F Test: MEAN CORPUSCULAR VOLUME; Value: 90.2; Range: 80.0-96.0; Units: fl; Status: F Test: MEAN CORPUSCULAR HEMOGLOBIN; Value: 24.8; Range: 27.0-33.0; Abnormal: Below low normal; Units: pg; Status: F Test: MEAN CORPUSCULAR HGB CONC; Value: 27.5; Range: 32.0-36.5; Abnormal: Below low normal; Units: g/dl; Status: F Test: RED CELL DISTRIBUTION WIDTH; Value: 17.7; Range: 11.5-14.5; Abnormal: Above high normal; Units: %; Status: F Test: PLATELET COUNT, AUTOMATED; Value: 338; Range: 150-450; Units: k/mm3; Status: F Test: NEUTROPHILS %; Value: 85.9; Range: 36.0-66.0; Abnormal: Above high normal; Units: %; Status: F Test: LYMPH %; Value: 7.4; Range: 24.0-44.0; Abnormal: Below low normal; Units: %; Status: F Test: MONO %; Value: 4.7; Range: 0.0-5.0; Units: %; Status: F Test: EOS %; Value: 0.8; Range: 0.0-3.0; Units: %; Status: F Test: BASO %; Value: 0.2; Range: 0.0-1.0; Units: %; Status: F Test: LARGE UNSTAINED CELL %; Value: 1.0; Range: 0.0-4.0; Units: %; Status: F Test: NEUTROPHILS #; Value: 8.0; Range: 1.8-7.7; Abnormal: Above high normal; Units: K/mm3; Status: F Test: LYMPH #; Value: 0.8; Range: 1.5-4.5; Abnormal: Below low normal; Units: K/mm3; Status: F Test: MONO #; Value: 0.4; Range: 0.0-0.8; Units: K/mm3; Status: F Test: EOS #; Value: 0.1; Range: 0.0-0.50; Units: K/mm3; Status: F Test: BASO #; Value: 0.0; Range: 0.0-0.2; Units: K/mm3; Status: F Test: LARGE UNSTAINED CELL #; Value: 0.1; Range: 0.0-0.4; Units: K/mm3; Status: F Lab Order: -Influenza A&B Rapid Antigen - Nose; SPEC'M 03/24/16 14:08 Test: INFLUENZA A RAPID SCR by ICA; Value: INFLUENZA A RESULTS NEGATIVE; Status: F Test: INFLUENZA A RAPID SCR by ICA; Value: Comments:; Status: F Test: INFLUENZA B RAPID SCR by ICA; Value: INFLUENZA B RESULTS NEGATIVE; Status: F Test Note: ; The Influenza test is a direct rapid immunoassay for the qualitative detection of Influenza viral antigen. Cell culture (Viral Culture) testing should be considered to confirm NEGATIVE results and to assist in detecting other viruses that can provide similar clinical symptoms. Please contact the lab within 24 hours ([phone]) if confirmatory testing is desired. Lab Order: -Arterial Blood Gas; SPEC'M 03/24/16 13:34 Test: ABG pH (ARTERIAL); Value: 7.339; Range: 7.350-7.450; Abnormal: Below low normal; Units: UNITS; Status: F Test: ABG PARTIAL PRESSURE CO2; Value: 45.3; Range: 35.0-45.0; Abnormal: Above high normal; Units: mmHg; Status: F Test: ABG PARTIAL PRESSURE O2; Value: 84.4; Range: 75.0-100.0; Units: mmHg; Status: F Test: ABG TOTAL CO2; Value: 25.2; Range: 23.0-31.0; Units: MEQ/L; Status: F Test: ABG HCO3; Value: 23.8; Range: 22.0-26.0; Units: MEQ/L; Status: F Test: ABG BASE EXCESS; Value: -2.0; Range: -2.0-2.0; Status: F Test: ABG STANDARD HCO3; Value: 22.8; Range: 22.0-26.0; Units: MEQ/L; Status: F Test: ABG O2 SATURATION; Value: 96.0; Range: 95.0-99.0; Units: %; Status: F Test: ABG DEVICE; Value: NASAL DEANGELO; Status: F Lab Order: CARDIAC INJURY PROFILE; [facility] 03/24/16 14:08 Test: CPK CREATINE PHOSPHOKINASE; Value: 33; Range: 26-192; Units: U/L; Status: F Test: CK-MB VALUE MASS; Value: 1.2; Range: 0.0-3.6; Units: NG/ML; Status: F Test: MB/CK RELATIVE INDEX; Value: 3.63; Range: < OR =4; Status: F Test Note: ; DIAGNOSIS CRITERIA MMB ng/ml Relative Index (RI) NON-AMI < or = 5 N/A RANGEL ZONE > 5 < or = 4 AMI > 5 > 4 Lab Order: TROPONIN; [facility] 03/24/16 14:08 Test: TROPONIN I; Value: 0.04; Range: < 0.10; Units: NG/ML; Status: F Test Note: ; Troponin I Reference Interval for Xceive LOCI: 99th Percentile= 0.00-0.045 ng/ml Risk Stratification: <= 0.10 ng/ml Decreased Risk for Adverse Clinical Events. 0.10-1.50 ng/ml Increased Risk for Adverse Clinical Events. Evaluation of additional criterion and/or repeat testing in 2-6 hours is suggested to rule out myocardial damage. >= 1.50 ng/ml Indicative of Myocardial Injury. Lab Order: Lactic Acid (Rangel tube on ice); [facility] 03/24/16 14:08 Test: LACTIC ACID LEVEL, LACTATE; Value: 4.1; Range: 0.4-2.0; Abnormal: Above upper panic limits; Units: MMOL/L; Status: F Radiology Order: Chest, 2 View (pa\E\lat) Test: Chest, 2 View (pa\E\lat) REASON FOR EXAMINATION: Shortness of Breath; Clinical: Shortness of breath.; ; Technique: PA and lateral.; ; Comparison: 08/03/2015.; ; Findings:; Opacification of the left mid to lower lung zone suggests chronic changes with; superimposed atelectasis/infiltrate and effusion. Medial right basilar; atelectasis cannot be as excluded as well. Cardiomegaly appears similar to prior; examination although the contour raises the possibility of underlying pericardial; effusion. No pneumothorax. Skeletal structures demonstrate degenerative; changes.; ; Impression:; Chronic stable changes.; Cannot exclude superimposed bilateral atelectasis/infiltrates (left greater than; right) and moderate left pleural effusion.; Cardiac silhouette raises the possibility of underlying pericardial effusion.; ; ; Signed by; Linden Bruno MD 03/24/2016 01:39 P; Outcome: 15:10 Decision to Hospitalize by Provider. br1 18:17 Discharge Assessment: Patient awake, alert and oriented x 3. No cognitive and/or jmb functional deficits noted. Patient verbalized understanding of disposition instructions. Patient awake and alert. obeys commands, Oriented to person, place and time. Patient verbalized understanding of disposition instructions. Patient has no functional deficits. patient administered narcotics - no. The following High Risk Discharge criteria are identified: None. Admitted to PCU accompanied by nurse, accompanied by tech, via stretcher, with oxygen, on monitor, with chart. Condition: stable. No special radiology studies were completed. Property sent home with patient. 18:29 Patient left the ED. garrick Signatures: Dispatcher [employer] EDKevin Omlaley, Nobel Parker RN, MD MD br1 Tato San11 Erwin Wall Joshua, RN RN jmb Donoghue, Joseph, PRODUCTION COORDINATOR PRODUCTION COORDINATOR jrd Yamileth Coombs, PRODUCTION COORDINATOR PRODUCTION COORDINATOR rs6 Shanice Bang ys2 Carlee Bell, Reg Reg hs2 MTDD
[2016-03-24 18:50] VITALS: BP 149/72
[2016-03-24] MEDS: NS 1,000 ML IV SCH (18:58)
[2016-03-24 19:42] VITALS: BP 107/52
--- NOTE | 2016-03-24 20:45 | PHACANCOPD ---
PHARMACY VANCOMYCIN DOSING Pt Demographics Demographics Patient Age:66 , Weight:158.900 , Gender: female Adjusted Body Weight Date: 03/24/16, Adjusted Body Weight: [100] Kg Events Past 24 Hours Events Past 24 Hours: YES: Change in CrCl, NO: Dialysis, Diuretic Therapy, Elevation in WBC, Fever, Other, Pending Diagnostics, Pending Procedures Vancomycin Vancomycin indication: elevated lactic acid with severe hypotension Vancomycin Target Ranges: 15-20 mcg/ml Vancomycin Load Y/N: No Load Dose Date Time Vancomycin Load Dose: Date: Time: Vancomycin Dose Date: 03/24/16. Current Vancomycin Dose: [1g IV q8h @21] Intermittent Dosing?: No Labs Labs Item Value Date Time Creatinine 1.22 MG/DL H 03/24/16 1408 White Blood Count 9.3 K/mm3 03/24/16 1408 Micro Microbiology 03/24/16 Blood Culture, Received Pending 03/24/16 Influenza Virus Type A Antigen - Final, Complete 03/24/16 Influenza Virus Type B Antigen - Final, Complete Creatinine Clearance Date:03/24/16. Creatinine Clearance: [70 ml/min using adjusted BW]. Assessment and Plan Maintaining Current Dose?: Yes Reason for dose change: No Dose Change Pharmacist Note Pharmacist Note Date: 03/24/16. Pharmacist note: pt has had increasing SOB with hypotension, also Hx of CHF and COPD. She does not have a MRSA or relevant past culture Hx. She was last on vancomycin at our facility in May 2015, based on that dosing I will continue 1g IV q8h without a load due to her current SCr. I will continue to monitor over the weekend and order a trough as needed Sony Sweeney Pharm.D. Mar 24, 2016 20:45
[2016-03-24] MEDS: HumaLOG INSULIN (NovoLOG) PER UNIT SC SCH (21:00)
[2016-03-24] MEDS: METOPROLOL TART 25 MG TABLET PO SCH (21:00)
[2016-03-24] MEDS: ACETAMINOPHEN TAB 650MG DOSE (2X325MG) PO PRN (21:29)
[2016-03-24] MEDS: PIPERACILLIN/TAZOBACTAM SOD 3.375 GM in D5W MINI-BAG PLUS 50 ML IV SCH (21:29)
[2016-03-24] MEDS: POTASSIUM CHLORIDE 10 MEQ SR TABLET PO SCH (21:31)
[2016-03-24] MEDS: VANCOMYCIN HCL 1,000 MG, VIAL MATE ADAPTER 1 EACH in D5W 250 ML IV SCH (23:10)
[2016-03-24 23:40] VITALS: BP 105/51
[2016-03-25] MEDS: DABIGATRAN ETEXILATE 75 MG CAP (PRADAXA) PO SCH ×3 (00:36→22:32)
[2016-03-25] MEDS ORDERED: MAG SULF 1GM/100ML (MAG RUN) 1 GM in APPROPRIATE DILUENT 1 EA IV ONE (02:00)
[2016-03-25 04:13] VITALS: BP 110/68
[2016-03-25] MEDS: PIPERACILLIN/TAZOBACTAM SOD 3.375 GM in D5W MINI-BAG PLUS 50 ML IV SCH ×3 (04:23→22:31)
[2016-03-25 06:12] LABS: MEAN CORPUSCULAR HEMOGLOBIN 25.4 pg (27.0-33.0); MEAN CORPUSCULAR HGB CONC 28.8 g/dl (32.0-36.5); MEAN CORPUSCULAR VOLUME 88.2 fl (80.0-96.0); RED CELL DISTRIBUTION WIDTH 17.7 % (11.5-14.5); WHITE BLOOD COUNT 6.9 K/mm3 (4.0-10.0)
[2016-03-25] MEDS: VANCOMYCIN HCL 1,000 MG, VIAL MATE ADAPTER 1 EACH in D5W 250 ML IV SCH ×2 (06:31→13:58)
[2016-03-25 06:40] LABS: CALCIUM LEVEL 8.2 MG/DL (8.8-10.2); CREATININE FOR GFR 1.04 MG/DL (0.55-1.02); GLOMERULAR FILTRATION RATE 56.4 (>45); MAGNESIUM LEVEL 2.1 MG/DL (1.8-2.4)
[2016-03-25] MEDS: TIOTROPIUM INHALER/CAPSULE (SPIRIVA) INH SCH (07:55)
[2016-03-25 08:00] VITALS: BP 104/60
[2016-03-25] MEDS: HumaLOG INSULIN (NovoLOG) PER UNIT SC SCH ×4 (08:33→21:00)
[2016-03-25] MEDS: MULTIVITAMINS/MINERALS THERAP 1 TAB PO SCH (08:34)
[2016-03-25] MEDS: ATORVASTATIN 20 MG TAB PO SCH (08:34)
[2016-03-25] MEDS: ASPIRIN 81 MG ENTERIC TAB PO SCH (08:34)
[2016-03-25] MEDS: POTASSIUM CHLORIDE 10 MEQ SR TABLET PO SCH ×2 (08:35→22:33)
[2016-03-25] MEDS: METOPROLOL TART 25 MG TABLET PO SCH (08:35)
[2016-03-25] MEDS: ACETAMINOPHEN TAB 650MG DOSE (2X325MG) PO PRN ×3 (08:36→22:32)
[2016-03-25] MEDS ORDERED: LISINOPRIL *2.5 MG* TAB PO SCH (09:00)
--- NOTE | 2016-03-25 11:52 | IPNPDOC ---
Text Note Date of Service The patient was seen on 03/25/16 at 11:18. NOTE: Subjective: Patient is a 66 year old female with a PMHx of CHF (ECHO 05/2015 with normal- near normal EF, Grade 2 Diastolic dysfunction), COPD (on home O2 at 3 liters), DM2, DLP, HTN, atrial fibrillation (on anticoagulation), history of left pleural effusion (small to moderate) who presented to the ER with complaints of shortness of breath. She notes that she has been requiring more oxygen at home. She notes that she is coughing, but non-productive, no sputum. She denies fever or chills. She denies any leg swelling. She also noted that she has been experiencing some diarrhea, with 3-4 episodes daily in the last few days. She notes the diarrhea is loose, but no blood was noted. In the ER patient was found to be dyspneic with RR of 24, hypotensive with BP of 80/39. She recieve IV fluid bolus of normal saline and her blood pressure improved to SBP of 100s. She had an elevated lactic acid in the ER, so she has been continued with IV fluids and started on broad spectrum antibiotics ( Vancomycin and Zosyn). Patient has been seen and examined at the bedside. Currently she notes that her breathing has had some improvement. She denies production of sputum, fever or chills. She denies chest pain, palpitations or leg swelling. She notes that today her stool has been more formed. Objective: Vitals (See below) General: Sitting up in bed, no acute distress, AAOx3 HEENT: NC, AT CVS: Irregularly irregular, +S1S2 Lungs: Poor respiratory effort, Decreased lung sounds at left lung base, No wheezing / rhonchi / rales appreciated Abdomen: Soft, ND, NT, +BSx4 Extremities: +PPx4, No edema, no calf tenderness Assessment and plan: 1. Sepsis - possibly 2/2 pneumonia (CAP), possible gastrointestinal etiology - Symptomatic improvement in dyspnea, cough is still present - Oxygen requirements have gone done; she has been returned back to her baseline oxygen requirement of 3 liters - CT chest 03/24: Moderate left effusion with basilar and lingular atelectasis. Pulmonary vascular congestion. Ascites - Lactic acid has been elevated initially, however normalized at this time - Blood cultures 03/24 - currently negative; Influenza negative - Will repeat lactic acid - will continue with reduced rate of IV fluid for now - will attempt to get IR guided drainage of left pleural effusion and send fluid for analysis - Will continue with broad spectrum antibiotics (Vancomycin and Zosyn) - Day #2 2. Normocytic anemia - Hg baseline of 10-11 - Has received significant IV fluid hydration; possible component of dilution, however is also on anticoagulation for atrial fibrillation - Will check Iron panel, B12, Folate and reticulocyte count - Will repeat CBC at 12PM - Urinalysis for hematuria - Will transfuse if Hg < 8 3. COPD - no evidence of COPD exacerbation - physical exam does not reveal any wheezing - will continue with inhaled therapy from home and duoneb PRN 4. Diastolic CHF, - ECHO 05/2014 - with normal / near-normal EF, Grade 2 diastolic dysfunction - CT chest shows evidence of worsening effusion and vascular congestion - if repeat lactic acid has normalized; will stop IV fluids - Currently does not appear to have fluid overload on physical exam 5. NIDDM2 - c/w insulin sliding scale - will add Levemir if glucose remains uncontrolled 6. DLP - c/w atorvastatin 7. HTN - BP has been low in the ER and currently remains in the low 100s - will hold hypertensive medications at this time, until blood pressure improves 8. JANE - not on CPAP - Will go for repeat sleep study in March for CPAP 9. History of [place] - c/w ASA, Atorvastatin - Metoprolol dose has been decreased (with holding parameters) - Lisinopril have been held (re: Hypotension) 10. Atrial fibrillation - has been on rate control as an outpatient with metoprolol 25mg PO BID - Metoprolol dose has been continued at 12.5 mg PO BID (with holding parameters ) - full anticoagulation with Pradaxa 11. GI prophylaxis - will start protonix 12. DVT prophylaxis - on full anticoagulation with pradaxa VS,Fishbone, I+O VS, Fishbone, I+O Laboratory Tests 03/24/16 14:08 Calcium Level 8.5 L, Total Creatine Kinase 33, Red Blood Count 3.86 L, Mean Corpuscular Volume 90.2, Mean Corpuscular Hemoglobin 24.8 L, Mean Corpuscular Hemoglobin Concent 27.5 L, Red Cell Distribution Width 17.7 H, Neutrophils (%) ( Auto) 85.9 H, Lymphocytes (%) (Auto) 7.4 L, Monocytes (%) (Auto) 4.7, Eosinophils (%) (Auto) 0.8, Basophils (%) (Auto) 0.2, Neutrophils # (Auto) 8.0 H , Lymphocytes # (Auto) 0.8 L, Monocytes # (Auto) 0.4, Eosinophils # (Auto) 0.1, Basophils # (Auto) 0.0 03/25/16 05:51 Calcium Level 8.2 L, Total Creatine Kinase 31, Red Blood Count 3.32 L, Mean Corpuscular Volume 88.2, Mean Corpuscular Hemoglobin 25.4 L, Mean Corpuscular Hemoglobin Concent 28.8 L, Red Cell Distribution Width 17.7 H Vital Signs Date Time Temp Pulse Resp B/P Pulse Ox O2 Delivery O2 Flow Rate FiO2 03/25/16 08:35 90 104/60 03/25/16 08:00 97.7 20 96 Nasal Cannula 3.0 I&O- Last 24 Hours up to 6 AM 03/25/16 06:00 Intake Total 600 ml Output Total 375 ml Balance 225 ml MALACHI SOTO MD Mar 25, 2016 11:52
[2016-03-25 12:00] VITALS: BP 106/56
[2016-03-25] MEDS: NS 1,000 ML IV SCH ×2 (12:16→21:27)
[2016-03-25 12:23] LABS: RETIC HEMOGLOBIN CONTENT CHr 26.7 PG (24-36)
[2016-03-25 12:24] LABS: BASO % 0.1 % (0.0-1.0); EOS % 0.2 % (0.0-3.0); LARGE UNSTAINED CELL # 0.2 K/mm3 (0.0-0.4); LARGE UNSTAINED CELL % 2.2 % (0.0-4.0); LYMPH # 0.8 K/mm3 (1.5-4.5); LYMPH % 6.8 % (24.0-44.0); MEAN CORPUSCULAR HEMOGLOBIN 25.1 pg (27.0-33.0); MEAN CORPUSCULAR HGB CONC 28.7 g/dl (32.0-36.5); MEAN CORPUSCULAR VOLUME 87.4 fl (80.0-96.0); MONO # 0.7 K/mm3 (0.0-0.8); MONO % 8.3 % (0.0-5.0); NEUTROPHILS # 7.2 K/mm3 (1.8-7.7); NEUTROPHILS % 82.4 % (36.0-66.0); PLATELET COUNT, AUTOMATED 261 k/mm3 (150-450); RED CELL DISTRIBUTION WIDTH 17.7 % (11.5-14.5); WHITE BLOOD COUNT 8.8 K/mm3 (4.0-10.0)
[2016-03-25 12:48] LABS: PERCENT SATURATION 10.1 % (13.2-37.4)
--- NOTE | 2016-03-25 13:47 | ECGEPIP ---
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
[2016-03-25] MEDS: PANTOPRAZOLE 40MG TAB (PROTONIX) PO SCH (13:58)
[2016-03-25 16:00] VITALS: BP 118/62
[2016-03-25] MEDS: FLUTICASONE PROP 0.05% NASAL SPRAY 16 GM (FLONASE) PRN (18:14)
[2016-03-25] MEDS: LORATADINE 10 MG TAB PO PRN (18:15)
[2016-03-25 21:00] VITALS: BP 112/57
[2016-03-25] MEDS: METOPROLOL TART 12.5 MG PER 1/2 TAB PO SCH ×2 (21:00→22:33)
[2016-03-26 00:12] VITALS: BP 109/60
[2016-03-26] MEDS: VANCOMYCIN HCL 1,000 MG, VIAL MATE ADAPTER 1 EACH in D5W 250 ML IV SCH ×3 (00:26→23:07)
[2016-03-26 04:44] VITALS: BP 108/51
[2016-03-26] MEDS: PIPERACILLIN/TAZOBACTAM SOD 3.375 GM in D5W MINI-BAG PLUS 50 ML IV SCH ×3 (05:40→21:40)
[2016-03-26 05:52] LABS: CALCIUM LEVEL 8.2 MG/DL (8.8-10.2); GLOMERULAR FILTRATION RATE 59.1 (>45); POTASSIUM SERUM 4.3 MEQ/L (3.5-5.1)
[2016-03-26 06:01] LABS: MEAN CORPUSCULAR HEMOGLOBIN 25.4 pg (27.0-33.0); MEAN CORPUSCULAR HGB CONC 28.6 g/dl (32.0-36.5); MEAN CORPUSCULAR VOLUME 88.6 fl (80.0-96.0); RED CELL DISTRIBUTION WIDTH 17.8 % (11.5-14.5); WHITE BLOOD COUNT 8.9 K/mm3 (4.0-10.0)
[2016-03-26] MEDS: IPRATROPIUM 0.5MG/ALBUTEROL 2.5MG INH SOL UD 3ML (DUONEB)(J7620) NEB PRN (07:14)
[2016-03-26] MEDS: TIOTROPIUM INHALER/CAPSULE (SPIRIVA) INH SCH (07:14)
[2016-03-26 08:00] VITALS: BP 104/64
[2016-03-26] MEDS ORDERED: INFLUENZA VIRUS VACCINE HIGH DOSE 0.5 ML SYRINGE (90662) IM ONE (09:00)
[2016-03-26] MEDS: METOPROLOL TART 12.5 MG PER 1/2 TAB PO SCH ×2 (09:00→21:45)
[2016-03-26] MEDS: HumaLOG INSULIN (NovoLOG) PER UNIT SC SCH ×4 (10:06→21:00)
[2016-03-26] MEDS: PANTOPRAZOLE 40MG TAB (PROTONIX) PO SCH (10:06)
[2016-03-26] MEDS: DABIGATRAN ETEXILATE 75 MG CAP (PRADAXA) PO SCH (10:06)
[2016-03-26] MEDS: ATORVASTATIN 20 MG TAB PO SCH (10:06)
[2016-03-26] MEDS: ASPIRIN 81 MG ENTERIC TAB PO SCH (10:07)
[2016-03-26] MEDS: MULTIVITAMINS/MINERALS THERAP 1 TAB PO SCH (10:07)
[2016-03-26] MEDS: POTASSIUM CHLORIDE 10 MEQ SR TABLET PO SCH ×2 (10:07→21:40)
--- NOTE | 2016-03-26 11:16 | IPNPDOC ---
Text Note Date of Service The patient was seen on 03/26/16 at 11:10. NOTE: Subjective: Patient is a 66 year old female with a PMHx of CHF (ECHO 05/2015 with normal- near normal EF, Grade 2 Diastolic dysfunction), COPD (on home O2 at 3 liters), DM2, DLP, HTN, atrial fibrillation (on anticoagulation), history of left pleural effusion (small to moderate) who presented to the ER with complaints of shortness of breath. She notes that she has been requiring more oxygen at home. She notes that she is coughing, but non-productive, no sputum. She denies fever or chills. She denies any leg swelling. She also noted that she has been experiencing some diarrhea, with 3-4 episodes daily in the last few days. She notes the diarrhea is loose, but no blood was noted. In the ER patient was found to be dyspneic with RR of 24, hypotensive with BP of 80/39. She recieve IV fluid bolus of normal saline and her blood pressure improved to SBP of 100s. She had an elevated lactic acid in the ER, so she has been continued with IV fluids and started on broad spectrum antibiotics ( Vancomycin and Zosyn). Patient has been seen and examined at the bedside. She notes that she had difficulty sleeping overnight. She has required more oxygen. Reports improvement in chest pain, no sputum production, no chest pain / palpitations / leg edema. She notes that she has constipation at this point. Objective: Vitals (See below) General: Sitting up in bed, no acute distress, AAOx3 HEENT: NC, AT CVS: Irregularly irregular, +S1S2 Lungs: Poor respiratory effort, Decreased lung sounds at left lung base, No wheezing / rhonchi / rales appreciated Abdomen: Soft, ND, NT, +BSx4 Extremities: +PPx4, No edema, no calf tenderness Assessment and plan: 1. Sepsis - possibly 2/2 pneumonia (CAP), possible gastrointestinal etiology - Symptomatic improvement in dyspnea, cough is still present - Oxygen requirements have gone down from admission; still elevated from baseline of 3L - CT chest 03/24: Moderate left effusion with basilar and lingular atelectasis. Pulmonary vascular congestion. Ascites - Lactic acid has normalized - Blood cultures 03/24 - currently negative; Influenza negative - will discontinue IV fluids - will attempt to get IR guided drainage of left pleural effusion and send fluid for analysis on Sunday - will re-evaluate need based on symptoms - Will continue with broad spectrum antibiotics (Vancomycin and Zosyn) - Day #3 2. Normocytic anemia - Hg baseline of 10-11 - Has received significant IV fluid hydration; possible component of dilution, however is also on anticoagulation for atrial fibrillation - Hg stable - Reticulocyte index of 0.9 - Hypoproliferative - Vitamin B12 and Foalte - pending - Iron panel shows iron deficiency anemia - UA negative for hematuria - Will transfuse if Hg < 8 - Will start Ferrous sulfate 325 BID 3. COPD - no evidence of COPD exacerbation - physical exam does not reveal any wheezing - will continue with inhaled therapy from home and duoneb PRN 4. Diastolic CHF, - ECHO 05/2014 - with normal / near-normal EF, Grade 2 diastolic dysfunction - CT chest shows evidence of worsening effusion and vascular congestion - Currently does not appear to have fluid overload on physical exam - discontinued IV fluids 5. NIDDM2 - c/w insulin sliding scale - will add Levemir if glucose remains uncontrolled 6. DLP - c/w atorvastatin 7. HTN - BP has been low in the ER and currently remains in the low 100s - will hold hypertensive medications at this time, until blood pressure improves 8. JANE - not on CPAP - Will go for repeat sleep study in March for CPAP 9. History of [place] - c/w ASA, Atorvastatin - Metoprolol dose has been decreased (with holding parameters) - Lisinopril have been held (re: Hypotension) 10. Atrial fibrillation - has been on rate control as an outpatient with metoprolol 25mg PO BID - Metoprolol dose has been continued at 12.5 mg PO BID (with holding parameters ) - full anticoagulation with Pradaxa 11. GI prophylaxis - c/w protonix 12. DVT prophylaxis - on full anticoagulation with pradaxa VS,Fishbone, I+O VS, Fishbone, I+O Laboratory Tests 03/25/16 12:08 Red Blood Count 3.33 L, Mean Corpuscular Volume 87.4, Mean Corpuscular Hemoglobin 25.1 L, Mean Corpuscular Hemoglobin Concent 28.7 L, Red Cell Distribution Width 17.7 H, Neutrophils (%) (Auto) 82.4 H, Lymphocytes (%) (Auto ) 6.8 L, Monocytes (%) (Auto) 8.3 H, Eosinophils (%) (Auto) 0.2, Basophils (%) ( Auto) 0.1, Neutrophils # (Auto) 7.2, Lymphocytes # (Auto) 0.8 L, Monocytes # ( Auto) 0.7, Eosinophils # (Auto) 0.0, Basophils # (Auto) 0.0 03/26/16 05:19 Red Blood Count 3.41 L, Mean Corpuscular Volume 88.6, Mean Corpuscular Hemoglobin 25.4 L, Mean Corpuscular Hemoglobin Concent 28.6 L, Red Cell Distribution Width 17.8 H, Calcium Level 8.2 L Vital Signs Date Time Temp Pulse Resp B/P Pulse Ox O2 Delivery O2 Flow Rate FiO2 03/26/16 09:00 74 104/64 03/26/16 08:00 96.3 24 90 Nasal Cannula 4.0 I&O- Last 24 Hours up to 6 AM 03/26/16 06:00 Intake Total 3400 ml Output Total 850 ml Balance 2550 ml MALACHI SOTO MD Mar 26, 2016 11:16
[2016-03-26 12:00] VITALS: BP 100/53
[2016-03-26] MEDS: FERROUS SULFATE 325MG TAB PO SCH ×2 (12:13→21:40)
--- NOTE | 2016-03-26 13:04 | PHACANCOPD ---
PHARMACY VANCOMYCIN DOSING Pt Demographics Demographics Patient Age:66 , Weight:165.300 , Gender: female Adjusted Body Weight Date: 03/24/16, Adjusted Body Weight: [100] Kg Events Past 24 Hours Events Past 24 Hours: YES: Change in CrCl, NO: Dialysis, Diuretic Therapy, Elevation in WBC, Fever, Other, Pending Diagnostics, Pending Procedures Vancomycin Vancomycin indication: elevated lactic acid with severe hypotension Vancomycin Target Ranges: 15-20 mcg/ml Vancomycin Load Y/N: No Load Dose Date Time Vancomycin Load Dose: Date: Time: Vancomycin Dose Date: 03/24/16. Current Vancomycin Dose: [1g IV q8h @21] Intermittent Dosing?: No Labs Labs Item Value Date Time White Blood Count 6.9 K/mm3 03/25/16 0551 White Blood Count 8.8 K/mm3 03/25/16 1208 White Blood Count 8.9 K/mm3 03/26/16 0519 Vancomycin Level Trough 21.7 UG/ML H 03/26/16 1200 Creatinine 1.04 MG/DL H 03/25/16 0551 Creatinine 1.00 MG/DL 03/26/16 0519 Creatinine 1.22 MG/DL H 03/24/16 1408 Micro Microbiology 03/24/16 Blood Culture - Preliminary, Resulted No growth after 24 hours . All specim... 03/24/16 Blood Culture - Preliminary, Resulted No growth after 24 hours . All specim... 03/24/16 Blood Culture - Preliminary, Resulted 03/24/16 Influenza Virus Type A Antigen - Final, Complete 03/24/16 Influenza Virus Type B Antigen - Final, Complete Creatinine Clearance Date:03/24/16. Creatinine Clearance: [70 ml/min using adjusted BW]. Assessment and Plan Maintaining Current Dose?: Yes Reason for dose change: Trough too low, Other Pharmacist Note Pharmacist Note Date: 03/26/16. Pharmacist note: vanco trough was drawn on time 1 hr before the dose and came back at 21.7. I will hold the 13:00 dose and resume 1g q8h dosing as her renal function has improved since admission. Blood cultures are 1/3 + for gram positive cocci in cl, influenza negative. No other cultures pending. We will continue to monitor. Date: 03/24/16. Pharmacist note: pt has had increasing SOB with hypotension, also Hx of CHF and COPD. She does not have a MRSA or relevant past culture Hx. She was last on vancomycin at our facility in May 2015, based on that dosing I will continue 1g IV q8h without a load due to her current SCr. I will continue to monitor over the weekend and order a trough as needed Sony Sweeney Pharm.D. Mar 26, 2016 13:04
--- NOTE | 2016-03-26 13:21 | REP ---
Clinical: Follow up effusion. Comparison: 03/24/2016. Findings: Examination is limited by technique and underpenetration. Cardiomegaly remains stable. Perihilar and bibasilar opacities (left greater than right) are identified along with suspected moderate left pleural effusion. No pneumothorax. Impression: Cardiomegaly. Moderate left pleural effusion. Bibasilar infiltrate/atelectasis. Findings appear relatively similar to prior examination although evaluation is limited due to technique. Signed by Linden Bruno MD 03/26/2016 01:13 P
--- NOTE | 2016-03-26 14:19 | REP ---
Clinical: Shortness of breath. Comparison: 10/07/2015. Findings: There is a moderate left pleural effusion with left basilar and left upper lobe/lingular atelectasis. Cardiomegaly with mild pulmonary venous congestion is appreciated. No pericardial effusion. No pneumothorax. Tracheobronchial tree is patent. Limited evaluation of the upper abdomen demonstrates ascites. Surrounding musculoskeletal structures demonstrate age-related degenerative changes without focal osseous abnormality. Impression: Moderate left effusion with left upper lobe/lingular and basilar atelectasis. Cardiomegaly and pulmonary venous congestion. Upper abdominal ascites. Signed by Linden Bruno MD 03/26/2016 02:11 P
[2016-03-26] MEDS: FLUTICASONE PROP 0.05% NASAL SPRAY 16 GM (FLONASE) PRN (14:27)
[2016-03-26 16:00] VITALS: BP 124/58
[2016-03-26] MEDS: ACETAMINOPHEN TAB 650MG DOSE (2X325MG) PO PRN (17:30)
--- NOTE | 2016-03-26 19:30 | EDDOCDS ---
Nurse's Notes [facility] Name: Francisca Magaña Age: 66 yrs Sex: Female : 1950 Arrival Date: 03/24/2016 Time: 13:00 Bed 4 Private MD: [facility] Diagnosis: Chronic obstructive pulmonary disease with (acute) exacerbation;Pleural effusion, not elsewhere classified;Hypotension Presentation: 03/24 13:34 Presenting complaint: Patient states: increasing SOB over last week. more SOB with any j activity. denies chest pain. denies swollen legs. has had diarrhea x 1 week. + cough no sputum. Acuity level changed due to the patient meeting SIRS criteria. Adult Sepsis Screening: Patient has a respiratory rate of greater than or equal to 22 (1 point). The patient does not have new or worsening altered mentation. Systolic blood pressure is less than or equal to 100 (1 point). Patient has a qSOFA Score of 2. Infection Criteria- Patient has cough and/or SOB Sepsis Screen Results: Positive Sepsis Screen- Pt has a qSOFA Score of 2 or more and at least one Infection Criteria. Patient made NAPOLEON Level 2. Suicide/Homicide risk assessment- the patient denies having any suicidal and/or homicidal ideations. Status: Patient is not a financial services assistant or dependent. Transition of care: patient was not received from another setting of care. 13:34 Acuity: [place]OLEON Level 3 [facility] 13:34 Method Of Arrival: Ambulance [facility] 13:34 Acuity: N[place]LEON Level 2 [facility] Triage Assessment: 13:46 General: Appears in no apparent distress, comfortable, Behavior is cooperative. Pain: bcj Denies pain. Respiratory: Onset: The symptoms/episode began/occurred yesterday. Historical: - Allergies: SULFA (SULFONAMIDES) (Rash); - Home Meds: 1. Pradaxa 150 mg oral cap 1 cap 2 times per day 2. metoprolol tartrate 25 mg Oral tab 12.5 mg 2 times per day 3. atorvastatin 40 mg oral tab 1 tab once daily 4. ProAir HFA 108mcg inhalation HFAA 2 puffs every 6 hours every 2 hours as needed for SOB 5. Spiriva with HandiHaler 18 mcg Inhl CpDv 1 cap once daily 6. Symbicort 160-4.5 mcg/actuation inhalation HFAA 2 puffs 2 times per day 7. Breo Ellipta 200-25 mcg/dose inhalation dsdv 1 puff once daily 8. potassium chloride 10 mEq Oral TbER 1 tab 2 times per day 9. lisinopril 2.5 mg oral tab once daily 10. furosemide 80 mg oral tab 1 tab once daily 11. metformin 500 mg Oral tab 1 tab 2 times per day 12. hydrochlorothiazide 12.5 mg Oral tab 1 tab once daily 13. multivitamin Oral tab 1 tab daily 14. loratadine 10 mg Oral cap 10 mg daily as needed 15. aspirin 81 mg Oral TbEC 1 tab once daily 16. docusate calcium 240 mg Oral cap 1 cap 2 times per day - PMHx: CAD; CHF; COPD; Diabetes - NIDDM: controlled; Hypercholesterolemia; Hypertension; Myocardial infarction; Obesity; Sleep Apnea w/o CPAP; - PSHx: Colon Resection; Coronary Stents; Hernia repair; hernia revision; tendon repaired; - Social history: Smoking status: Patient states former smoker of tobacco. No barriers to communication noted, The patient speaks fluent Mohawk. - Family history: Not pertinent. - : The pt / caregiver states he / she is on anticoagulants: Pradaxa (Dabigatran) Home medication list is obtained from the patient, patients' pharmacy. [employer] import data. - Exposure Risk Screening:: None identified. Screenin:14 Screening information is obtained from the patient. Fall risk: At risk due to gait bcj disturbance, The following interventions are performed due to a positive Fall Risk Screen: Fall Risk is added to Special Handling on the patient Summary Screen. A Fall Risk Bracelet was applied to the patient. Side Rails are placed in the up position. A Call Shah is given with instruction to call for help when getting out of bed. Fall Alert bracelet is placed on the patient. Assistance ADL's: requires no assistance with activities of daily living. Abuse/DV Screen: The patient / caregiver reports he/she is: not in a situation that causes fear, pain or injury. Nutritional screening: No deficits noted. home support is adequate. 18:17 Advance Directives: Currently, there is no health care proxy. There is no active DNR jmb order. There is no living will. There is no Power of Heating Worker. Assessment: 14:14 General: Appears in no apparent distress, comfortable, Behavior is cooperative. Pain: bcj Denies pain. Cardiovascular: Rhythm is sinus rhythm Chest pain is denied. Respiratory: Airway is patent Respiratory effort is even, unlabored, Respiratory pattern is regular, Breath sounds with rhonchi bilaterally. Breath sounds are diminished bilaterally. Derm: Skin is pink, warm & dry. 15:12 General: Appears in no apparent distress, Behavior is appropriate for age, cooperative, jmb Patient laying on stretcher on left side. Patient denies discomfort. Patient reports being able to breath better when she does not move. Patient blood pressure circulating every 15 minutes per provider orders. Patient currently at CT. NO voiced complaints at this time. . Neurological: Level of Consciousness is awake, alert, obeys commands, Oriented to person, place, time, Speech is normal, Facial symmetry appears normal, Facial symmetry: tongue is midline. Cardiovascular: Capillary refill < 3 seconds Heart tones present Pulses are all present. Rhythm is sinus rhythm No ectopy. Respiratory: Airway is patent Respiratory effort is even, unlabored, Respiratory pattern is regular, symmetrical, Breath sounds are diminished bilaterally. GI: Abdomen is obese, Bowel sounds present X 4 quads. Abd is soft and non tender X 4 quads. Derm: Skin is pink, warm & dry. Musculoskeletal: Range of motion intact in all extremities. 15:38 General: Appears in no apparent distress, comfortable, Behavior is appropriate for age, jmb cooperative, Patient laying on stretcher sitting up. NO voiced complaints at this time. . Neurological: Level of Consciousness is awake, alert, obeys commands, Oriented to person, place, time. Respiratory: Airway is patent Respiratory effort is even, unlabored, Respiratory pattern is regular, symmetrical. 15:46 General: Appears in no apparent distress, comfortable, Behavior is appropriate for age, jmb cooperative, Patient sitting up on stretcher, continues with some shortness of breath. Patient on 4 liters oxygen via nasal cannula. NO voiced complaints at this time. . Neurological: Level of Consciousness is awake, alert, obeys commands, Oriented to person, place, time. Respiratory: Airway is patent Respiratory effort is even, unlabored, Respiratory pattern is regular, symmetrical. 16:30 General: Appears in no apparent distress, comfortable, Behavior is appropriate for age, jmb cooperative, Patient laying on stretcher, no voiced complaints at this time. . Neurological: Level of Consciousness is awake, alert, obeys commands, Oriented to person, place, time. Respiratory: Airway is patent Respiratory effort is even, unlabored, Respiratory pattern is regular, symmetrical. 17:30 General: Appears in no apparent distress, comfortable, Behavior is appropriate for age, jmb cooperative. Neurological: Level of Consciousness is awake, alert, obeys commands, Oriented to person, place, time. Respiratory: Airway is patent Respiratory effort is even, unlabored, Respiratory pattern is regular, symmetrical. 18:02 General: SBAR faxed and tubed to PCU. jmb 18:24 General: PAtient ready for transfer to PCU.. jmb Vital Signs: 13:24 BP 92 / 55; Pulse 85; Resp 24; Temp 98.1(O); Pulse Ox 90% on 2 lpm NC; Weight 148.32 dem1 kg; Height 5 ft. 7 in. (170.18 cm); Pain 8/10; 14:19 BP 109 / 53 (auto/); jmb 14:19 Pulse 84 MON; Pulse Ox 97% ; jmb 14:20 BP 80 / 39 RA Supine (man/lg); jrd 15:08 BP 118 / 56 (auto/); jmb 15:08 Pulse 94 MON; Pulse Ox 93% ; jmb 15:38 BP 125 / 68 (auto/); jmb 15:38 Pulse 96 MON; Pulse Ox 87% ; jmb 15:50 BP 122 / 69 (auto/); jmb 15:50 Pulse 92 MON; Pulse Ox 91% ; jmb 15:53 BP 121 / 56 (auto/); jmb 15:54 Pulse 92 MON; Pulse Ox 90% ; jmb 16:08 BP 142 / 83 (auto/); jmb 16:09 Pulse 94 MON; Pulse Ox 90% ; jmb 16:38 BP 112 / 57 (auto/); jmb 16:39 Pulse 90 MON; Pulse Ox 93% ; jmb 16:53 BP 108 / 61 (auto/); jmb 16:54 Pulse 92 MON; Pulse Ox 96% ; jmb 17:08 BP 107 / 59 (auto/); jmb 17:09 Pulse 94 MON; Pulse Ox 89% ; jmb 17:38 BP 124 / 58 (auto/); jmb 17:39 Pulse 92 MON; Pulse Ox 91% ; jmb 18:17 BP 124 / 60; Pulse 93; Resp 22; Temp 97.8(O); Pulse Ox 91% on 4 lpm NC; Pain 0/10; jmb 13:24 Body Mass Index 51.21 (148.32 kg, 170.18 cm) [facility] Vitals: 13:24 Log In Time N/A - ambulance arrival. dem1 14:14 Refer to monitor trend for complete vital signs trends. [facility] ED Course: 13:01 Patient visited by Yamileth Comobs PCA. rs6 13:01 Carmelina Choudhary is Private Physician. rs6 13:01 [facility] is Private Physician. rs6 13:01 Patient moved to Waiting rs6 13:01 Patient moved to 4 rs6 13:03 Noble Nelson MD is Attending Physician. br1 13:10 Patient visited by Noble Nelson MD. br1 13:19 EKG done. (by ED staff). Reviewed by Noble Nelson MD. dem1 13:24 Patient visited by Erwin Wall. 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 Pulse ox on. NIBP on. dem1 13:25 Patient visited by Erwin Wall. dem1 13:36 Triage Initiated bcj 13:39 -Arterial Blood Gas Sent. js11 13:47 Patient visited by Kevin Rothman RN. j 14:07 Chest, 2 View (pa\E\lat) Returned. EDMS 14:14 No apparent distress. Resting quietly. awaiting re-evaluation by ER physician. j 14:14 The patient / caregiver is instructed regarding the plan of care and ED course. Patient [facility] has correct armband on for positive identification. Placed in gown. Bed in low position. Call light in reach. Side rails up X2. 14:14 Inserted saline lock: 20 gauge in left forearm. Labs drawn. (by ED staff). Sent per [facility] order to lab. Labs/Blood culture drawn. O2 via nasal cannula \T\ 3L/min. 14:16 Patient visited by Kevin Rothman, TAJ. j 14:16 Lactic Acid (Rangel tube on ice) Sent. bcj 14:16 -Blood Culture Sent. bcj 14:16 TROPONIN Sent. bcj 14:16 CARDIAC INJURY PROFILE Sent. bcj 14:17 -Influenza A&B Rapid Antigen - Nose Sent. bcj 15:02 Shanice Bang mediation commissioner. ys2 15:10 Shanice Bang is Hospitalizing Provider. br1 15:14 Patient visited by Dino Bains RN. garrick 15:21 [facility] Payment Agreement was scanned into [employer] and attached to record. hs2 15:48 Patient visited by Dino Bains RN. anjalib 16:31 Patient visited by Dino Bains RN. jmb 17:31 Patient visited by Dino Bains RN. anjalib 18:17 No procedures done that require assistance. garrick 21:24 T-Sheet-- Draft Copy was scanned into [employer] and attached to record. klr Administered Medications: 13:30 Drug: Albuterol-Ipratropium 1 neb [ipratropium-albuterol 0.5 mg-3 mg(2.5 mg base)/3 mL js11 nebulization soln (1 neb)] Route: Nebulizer; 13:50 Drug: Albuterol-Ipratropium 1 neb [ipratropium-albuterol 0.5 mg-3 mg(2.5 mg base)/3 mL js11 nebulization soln (1 neb)] Route: Nebulizer; 14:01 Drug: Albuterol-Ipratropium 1 neb [ipratropium-albuterol 0.5 mg-3 mg(2.5 mg base)/3 mL js11 nebulization soln (1 neb)] Route: Nebulizer; 14:16 Drug: Solu-MEDROL 125 mg [Solu-Medrol 500 mg intravenous solution (125 mg)] Route: IVP; bcj Site: right forearm; 14:55 Drug: NS 0.9% 500 ml [sodium chloride 0.9 % intravenous solution] Route: IV; Rate: bcj bolus; Site: right forearm; 15:12 Drug: Ondansetron 4 mg [ondansetron HCl 2 mg/mL intravenous solution (2 mL)] Route: jmb IVP; Site: left forearm; 15:38 Drug: cefTRIAXone 2 grams [ceftriaxone 1 gram solution for injection] Route: IVPB; garrick Infused Over: 30 mins; Site: left forearm; RT: 13:30 Initial Med Neb Given as ordered Patient was instructed and evaluated on procedure js11 Patient tolerated procedure well without adverse effect. O2 via nasal cannula \T\ 4L/min. Respiratory: Breath sounds are diminished in left upper lobe and left lower lobe. 13:40 ABG's drawn from left radial artery allens test done and positive pressure held for 5 js11 minutes no bleeding noted specimen sent pt. tolerated well. 13:50 Subsequent Med Neb Given as ordered Patient tolerated procedure well without adverse js11 effect. Respiratory: Breath sounds are diminished in left upper lobe and left lower lobe. 14:02 Subsequent Med Neb Given as ordered Patient tolerated procedure well without adverse js11 effect. Respiratory: Breath sounds are diminished in left upper lobe and left lower lobe. Order Results: Lab Order: B-Type Natiuretic Peptide; SPEC'M 03/24/16 14:08 Test: BRAIN NATRIURETIC PEPTIDE; Value: 427; Range: <100; Abnormal: Above high normal; Units: PG/ML; Status: F Lab Order: Basic Metabolic Profile; SPEC'M 03/24/16 14:08 Test: GLUCOSE, FASTING; Value: 103; Range: 80-110; Units: MG/DL; Status: F Test: BLOOD UREA NITROGEN; Value: 13; Range: 7-18; Units: MG/DL; Status: F Test: CREATININE FOR GFR; Value: 1.22; Range: 0.55-1.02; Abnormal: Above high normal; Units: MG/DL; Status: F Test: GLOMERULAR FILTRATION RATE; Value: 46.9; Range: >45; Status: F Test: SODIUM LEVEL; Value: 142; Range: 136-145; Units: MEQ/L; Status: F Test: POTASSIUM SERUM; Value: 3.4; Range: 3.5-5.1; Abnormal: Below low normal; Units: MEQ/L; Status: F Test: CHLORIDE LEVEL; Value: 106; Range: 98-107; Units: MEQ/L; Status: F Test: CARBON DIOXIDE LEVEL; Value: 27; Range: 21-32; Units: MEQ/L; Status: F Test: ANION GAP; Value: 9; Range: 8-16; Units: MEQ/L; Status: F Test: CALCIUM LEVEL; Value: 8.5; Range: 8.8-10.2; Abnormal: Below low normal; Units: MG/DL; Status: F Test Note: ; Units are mL/min/1.73 m2 Chronic Kidney Disease Staging per NKF: Stage I & II GFR >=60 Normal to Mildly Decreased Stage III GFR 30-59 Moderately Decreased Stage IV GFR 15-29 Severely Decreased Stage V GFR <15 Very Little GFR Left ESRD GFR <15 on STEP FINISHER Lab Order: CBC with Diff; SPEC'M 03/24/16 14:08 Test: WHITE BLOOD COUNT; Value: 9.3; Range: 4.0-10.0; Units: K/mm3; Status: F Test: RED BLOOD COUNT; Value: 3.86; Range: 4.00-5.40; Abnormal: Below low normal; Units: M/mm3; Status: F Test: HEMOGLOBIN; Value: 9.6; Range: 12.0-16.0; Abnormal: Below low normal; Units: g/dl; Status: F Test: HEMATOCRIT; Value: 34.8; Range: 36.0-47.0; Abnormal: Below low normal; Units: %; Status: F Test: MEAN CORPUSCULAR VOLUME; Value: 90.2; Range: 80.0-96.0; Units: fl; Status: F Test: MEAN CORPUSCULAR HEMOGLOBIN; Value: 24.8; Range: 27.0-33.0; Abnormal: Below low normal; Units: pg; Status: F Test: MEAN CORPUSCULAR HGB CONC; Value: 27.5; Range: 32.0-36.5; Abnormal: Below low normal; Units: g/dl; Status: F Test: RED CELL DISTRIBUTION WIDTH; Value: 17.7; Range: 11.5-14.5; Abnormal: Above high normal; Units: %; Status: F Test: PLATELET COUNT, AUTOMATED; Value: 338; Range: 150-450; Units: k/mm3; Status: F Test: NEUTROPHILS %; Value: 85.9; Range: 36.0-66.0; Abnormal: Above high normal; Units: %; Status: F Test: LYMPH %; Value: 7.4; Range: 24.0-44.0; Abnormal: Below low normal; Units: %; Status: F Test: MONO %; Value: 4.7; Range: 0.0-5.0; Units: %; Status: F Test: EOS %; Value: 0.8; Range: 0.0-3.0; Units: %; Status: F Test: BASO %; Value: 0.2; Range: 0.0-1.0; Units: %; Status: F Test: LARGE UNSTAINED CELL %; Value: 1.0; Range: 0.0-4.0; Units: %; Status: F Test: NEUTROPHILS #; Value: 8.0; Range: 1.8-7.7; Abnormal: Above high normal; Units: K/mm3; Status: F Test: LYMPH #; Value: 0.8; Range: 1.5-4.5; Abnormal: Below low normal; Units: K/mm3; Status: F Test: MONO #; Value: 0.4; Range: 0.0-0.8; Units: K/mm3; Status: F Test: EOS #; Value: 0.1; Range: 0.0-0.50; Units: K/mm3; Status: F Test: BASO #; Value: 0.0; Range: 0.0-0.2; Units: K/mm3; Status: F Test: LARGE UNSTAINED CELL #; Value: 0.1; Range: 0.0-0.4; Units: K/mm3; Status: F Lab Order: -Influenza A&B Rapid Antigen - Nose; SPEC'M 03/24/16 14:08 Test: INFLUENZA A RAPID SCR by ICA; Value: INFLUENZA A RESULTS NEGATIVE; Status: F Test: INFLUENZA A RAPID SCR by ICA; Value: Comments:; Status: F Test: INFLUENZA B RAPID SCR by ICA; Value: INFLUENZA B RESULTS NEGATIVE; Status: F Test Note: ; The Influenza test is a direct rapid immunoassay for the qualitative detection of Influenza viral antigen. Cell culture (Viral Culture) testing should be considered to confirm NEGATIVE results and to assist in detecting other viruses that can provide similar clinical symptoms. Please contact the lab within 24 hours [phone] if confirmatory testing is desired. Lab Order: -Arterial Blood Gas; SPEC'M 03/24/16 13:34 Test: ABG pH (ARTERIAL); Value: 7.339; Range: 7.350-7.450; Abnormal: Below low normal; Units: UNITS; Status: F Test: ABG PARTIAL PRESSURE CO2; Value: 45.3; Range: 35.0-45.0; Abnormal: Above high normal; Units: mmHg; Status: F Test: ABG PARTIAL PRESSURE O2; Value: 84.4; Range: 75.0-100.0; Units: mmHg; Status: F Test: ABG TOTAL CO2; Value: 25.2; Range: 23.0-31.0; Units: MEQ/L; Status: F Test: ABG HCO3; Value: 23.8; Range: 22.0-26.0; Units: MEQ/L; Status: F Test: ABG BASE EXCESS; Value: -2.0; Range: -2.0-2.0; Status: F Test: ABG STANDARD HCO3; Value: 22.8; Range: 22.0-26.0; Units: MEQ/L; Status: F Test: ABG O2 SATURATION; Value: 96.0; Range: 95.0-99.0; Units: %; Status: F Test: ABG DEVICE; Value: NASAL DEANGELO; Status: F Lab Order: CARDIAC INJURY PROFILE; SPEC' 03/24/16 14:08 Test: CPK CREATINE PHOSPHOKINASE; Value: 33; Range: 26-192; Units: U/L; Status: F Test: CK-MB VALUE MASS; Value: 1.2; Range: 0.0-3.6; Units: NG/ML; Status: F Test: MB/CK RELATIVE INDEX; Value: 3.63; Range: < OR =4; Status: F Test Note: ; DIAGNOSIS CRITERIA MMB ng/ml Relative Index (RI) NON-AMI < or = 5 N/A RANGEL ZONE > 5 < or = 4 AMI > 5 > 4 Lab Order: TROPONIN; SPEC'M 03/24/16 14:08 Test: TROPONIN I; Value: 0.04; Range: < 0.10; Units: NG/ML; Status: F Test Note: ; Troponin I Reference Interval for Xfire LOCI: 99th Percentile= 0.00-0.045 ng/ml Risk Stratification: <= 0.10 ng/ml Decreased Risk for Adverse Clinical Events. 0.10-1.50 ng/ml Increased Risk for Adverse Clinical Events. Evaluation of additional criterion and/or repeat testing in 2-6 hours is suggested to rule out myocardial damage. >= 1.50 ng/ml Indicative of Myocardial Injury. Lab Order: Lactic Acid (Rangel tube on ice); SPEC'M 03/24/16 14:08 Test: LACTIC ACID LEVEL, LACTATE; Value: 4.1; Range: 0.4-2.0; Abnormal: Above upper panic limits; Units: MMOL/L; Status: F Radiology Order: Chest, 2 View (pa\E\lat) Test: Chest, 2 View (pa\E\lat) REASON FOR EXAMINATION: Shortness of Breath; Clinical: Shortness of breath.; ; Technique: PA and lateral.; ; Comparison: 08/03/2015.; ; Findings:; Opacification of the left mid to lower lung zone suggests chronic changes with; superimposed atelectasis/infiltrate and effusion. Medial right basilar; atelectasis cannot be as excluded as well. Cardiomegaly appears similar to prior; examination although the contour raises the possibility of underlying pericardial; effusion. No pneumothorax. Skeletal structures demonstrate degenerative; changes.; ; Impression:; Chronic stable changes.; Cannot exclude superimposed bilateral atelectasis/infiltrates (left greater than; right) and moderate left pleural effusion.; Cardiac silhouette raises the possibility of underlying pericardial effusion.; ; ; Signed by; Linden Bruno MD 03/24/2016 01:39 P; Outcome: 15:10 Decision to Hospitalize by Provider. br1 18:17 Discharge Assessment: Patient awake, alert and oriented x 3. No cognitive and/or jmb functional deficits noted. Patient verbalized understanding of disposition instructions. Patient awake and alert. obeys commands, Oriented to person, place and time. Patient verbalized understanding of disposition instructions. Patient has no functional deficits. patient administered narcotics - no. The following High Risk Discharge criteria are identified: None. Admitted to PCU accompanied by nurse, accompanied by tech, via stretcher, with oxygen, on monitor, with chart. Condition: stable. No special radiology studies were completed. Property sent home with patient. 18:29 Patient left the ED. garrick Signatures: Dispatcher [employer] EDKevin Omalley, Noble Parker RN, MD MD br1 Tato San11 Erwin Wall1 Dino Bains RN RN jmb Donoghue, Joseph, CAPTAIN AIRLINE PILOT CAPTAIN AIRLINE PILOT d Yamileth Coombs, CAPTAIN AIRLINE PILOT CAPTAIN AIRLINE PILOT rs6 Shanice Bang ys2 Carlee Bell, Reg Reg hs2 Shena Blank Chart Complete MTDD
--- NOTE | 2016-03-26 19:30 | EDDOCDS ---
Physician Documentation [facility] Name: Francisca Magaña Age: 66 yrs Sex: Female : 1950 Arrival Date: 03/24/2016 Time: 13:00 Bed 4 Private MD: [facility] Disposition: 03/24/16 15:10 Hospitalization ordered by Shanice Bang for Inpatient Admission. Preliminary diagnosis are Chronic obstructive pulmonary disease with (acute) exacerbation, Pleural effusion, not elsewhere classified, Hypotension. - Bed requested for PCU. - Status is Inpatient Admission. jmb - Condition is Stable. - Problem is new. - Symptoms are unchanged. Historical: - Allergies: SULFA (SULFONAMIDES) (Rash); - Home Meds: 1. Pradaxa 150 mg oral cap 1 cap 2 times per day 2. metoprolol tartrate 25 mg Oral tab 12.5 mg 2 times per day 3. atorvastatin 40 mg oral tab 1 tab once daily 4. ProAir HFA 108mcg inhalation HFAA 2 puffs every 6 hours every 2 hours as needed for SOB 5. Spiriva with HandiHaler 18 mcg Inhl CpDv 1 cap once daily 6. Symbicort 160-4.5 mcg/actuation inhalation HFAA 2 puffs 2 times per day 7. Breo Ellipta 200-25 mcg/dose inhalation dsdv 1 puff once daily 8. potassium chloride 10 mEq Oral TbER 1 tab 2 times per day 9. lisinopril 2.5 mg oral tab once daily 10. furosemide 80 mg oral tab 1 tab once daily 11. metformin 500 mg Oral tab 1 tab 2 times per day 12. hydrochlorothiazide 12.5 mg Oral tab 1 tab once daily 13. multivitamin Oral tab 1 tab daily 14. loratadine 10 mg Oral cap 10 mg daily as needed 15. aspirin 81 mg Oral TbEC 1 tab once daily 16. docusate calcium 240 mg Oral cap 1 cap 2 times per day - PMHx: CAD; CHF; COPD; Diabetes - NIDDM: controlled; Hypercholesterolemia; Hypertension; Myocardial infarction; Obesity; Sleep Apnea w/o CPAP; - PSHx: Colon Resection; Coronary Stents; Hernia repair; hernia revision; tendon repaired; - Social history: Smoking status: Patient states former smoker of tobacco. No barriers to communication noted, The patient speaks fluent Luxembourger. - Family history: Not pertinent. - : The pt / caregiver states he / she is on anticoagulants: Pradaxa (Dabigatran) Home medication list is obtained from the patient, patients' pharmacy. [employer] import data. - Exposure Risk Screening:: None identified. Vital Signs: 03/24 13:24 BP 92 / 55; Pulse 85; Resp 24; Temp 98.1(O); Pulse Ox 90% on 2 lpm NC; Weight 148.32 kg dem1 / 326.99 lbs; Height 5 ft. 7 in. (170.18 cm); Pain 8/10; 14:19 BP 109 / 53 (auto/); jmb 14:19 Pulse 84 MON; Pulse Ox 97% ; jmb 14:20 BP 80 / 39 RA Supine (man/lg); jrd 15:08 BP 118 / 56 (auto/); jmb 15:08 Pulse 94 MON; Pulse Ox 93% ; jmb 15:38 BP 125 / 68 (auto/); jmb 15:38 Pulse 96 MON; Pulse Ox 87% ; jmb 15:50 BP 122 / 69 (auto/); jmb 15:50 Pulse 92 MON; Pulse Ox 91% ; jmb 15:53 BP 121 / 56 (auto/); jmb 15:54 Pulse 92 MON; Pulse Ox 90% ; jmb 16:08 BP 142 / 83 (auto/); jmb 16:09 Pulse 94 MON; Pulse Ox 90% ; jmb 16:38 BP 112 / 57 (auto/); jmb 16:39 Pulse 90 MON; Pulse Ox 93% ; jmb 16:53 BP 108 / 61 (auto/); jmb 16:54 Pulse 92 MON; Pulse Ox 96% ; jmb 17:08 BP 107 / 59 (auto/); jmb 17:09 Pulse 94 MON; Pulse Ox 89% ; jmb 17:38 BP 124 / 58 (auto/); jmb 17:39 Pulse 92 MON; Pulse Ox 91% ; jmb 18:17 BP 124 / 60; Pulse 93; Resp 22; Temp 97.8(O); Pulse Ox 91% on 4 lpm NC; Pain 0/10; jmb 13:24 Body Mass Index 51.21 (148.32 kg, 170.18 cm) dem1 MDM: 13:10 Fan Blade Aligner/Pulse Ox/q 30 min VS ordered. br1 13:10 IV Saline Lock ordered. br1 13:10 Oxygen at 4L/Min NC or Home dosage ordered. br1 13:10 Rhythm Strip to chart ordered. br1 13:10 Undress patient appropriately for examination ordered. br1 13:12 B-Type Natiuretic Peptide Ordered. EDMS 13:12 Basic Metabolic Profile Ordered. EDMS 13:12 CBC with Diff Ordered. EDMS 13:12 Chest, 2 View (pa\E\lat) Ordered. EDMS 13:12 ECG WITH READING ER PHYS+CARDIAG ordered. EDMS 13:13 Albuterol-Ipratropium 1 neb Nebulizer every 20 minutes x3 ordered. br1 13:13 Call Respiratory ordered. br1 13:13 -Influenza A&B Rapid Antigen - Nose Ordered. EDMS 13:14 Solu-MEDROL 125 mg IVP once ordered. br1 13:14 -Arterial Blood Gas Ordered. EDMS 13:15 CARDIAC INJURY PROFILE Ordered. EDMS 13:15 TROPONIN Ordered. EDMS 13:31 Misc. Nursing Order ordered. br1 13:40 -Blood Culture (Adults Only), peripheral from different site, or from device/port/PICC br1 etc. if present ordered. 13:41 Lactic Acid (Rangel tube on ice) Ordered. EDMS 13:42 -Blood Culture Ordered. EDMS 14:15 -Arterial Blood Gas Reviewed. br1 14:15 Chest, 2 View (pa\E\lat) Reviewed. br1 14:16 -Blood Culture (Adults Only), peripheral from different site, or from device/port/PICC bcj etc. if present complete. 14:20 NS 0.9% 500 ml IV at bolus once ordered. br1 14:21 BED REQUEST+ADM ordered. EDMS 14:22 Ondansetron 4 mg IVP once ordered. br1 14:23 Call Respiratory complete. rs6 14:46 B-Type Natiuretic Peptide Reviewed. br1 14:46 Basic Metabolic Profile Reviewed. br1 14:46 CBC with Diff Reviewed. br1 14:46 -Influenza A&B Rapid Antigen - Nose Reviewed. br1 14:46 CARDIAC INJURY PROFILE Reviewed. br1 14:46 TROPONIN Reviewed. br1 14:59 Financial registration complete. hs2 15:05 Lactic Acid (Rangel tube on ice) Reviewed. br1 15:06 CT Chest Without Contrast Ordered. EDMS 15:06 Recheck B/P ordered. br1 15:06 cefTRIAXone 2 grams IVPB once over 30 mins; dilute in 50mL of NS or D5W ordered. br1 15:21 [facility] Payment Agreement was scanned into [employer] and attached to record. hs2 16:47 Admission / Observation Status ordered. EDMS 16:47 CONSISTENT CARBOHYDRATES ordered. EDMS 16:49 URINALYSIS Ordered. EDMS 16:49 BLOOD CULTURES Ordered. EDMS 16:49 BLOOD CULTURES Ordered. EDMS 16:51 GASTROINTESTINAL (GI) PANEL Ordered. EDMS 17:10 SPUTUM CULTURE AND GRAM STAIN Ordered. EDMS 17:32 CARDIAC MARKER PANEL Ordered. EDMS 17:34 LACTIC ACID LEVEL, LACTATE Ordered. EDMS 21:24 T-Sheet-- Draft Copy was scanned into [employer] and attached to record. klr Administered Medications: 13:30 Drug: Albuterol-Ipratropium 1 neb [ipratropium-albuterol 0.5 mg-3 mg(2.5 mg base)/3 mL js11 nebulization soln (1 neb)] Route: Nebulizer; 13:50 Drug: Albuterol-Ipratropium 1 neb [ipratropium-albuterol 0.5 mg-3 mg(2.5 mg base)/3 mL js11 nebulization soln (1 neb)] Route: Nebulizer; 14:01 Drug: Albuterol-Ipratropium 1 neb [ipratropium-albuterol 0.5 mg-3 mg(2.5 mg base)/3 mL js11 nebulization soln (1 neb)] Route: Nebulizer; 14:16 Drug: Solu-MEDROL 125 mg [Solu-Medrol 500 mg intravenous solution (125 mg)] Route: IVP; bcj Site: right forearm; 14:55 Drug: NS 0.9% 500 ml [sodium chloride 0.9 % intravenous solution] Route: IV; Rate: bcj bolus; Site: right forearm; 15:12 Drug: Ondansetron 4 mg [ondansetron HCl 2 mg/mL intravenous solution (2 mL)] Route: jmb IVP; Site: left forearm; 15:38 Drug: cefTRIAXone 2 grams [ceftriaxone 1 gram solution for injection] Route: IVPB; jmb Infused Over: 30 mins; Site: left forearm; Signatures: Dispatcher Conservis EDMS Kevin Rothman, RN RN Noble Ramirez MD MD br1 Dino Bains RN RN anjalib Tanesha Ryan RN RN sls2 Yamileth Coombs, PUMP SERVICER SUPERVISOR PUMP SERVICER SUPERVISOR rs6 Carlee Bell, Reg Reg hs2 CalebShena maria klr Tato San js11 The chart was reviewed and I authenticate all verbal orders and agree with the evaluation and treatment provided.Corrections: (The following items were deleted from the chart) 13:15 13:12 CARDIAC INJURY PROFILE+LAB ordered. EDMS EDMS 13:15 13:12 TROPONIN+LAB ordered. EDMS EDMS 16:51 16:49 GASTROINTESTINAL (GI) PANEL ordered. EDMS EDMS Attachments: 15:21 [facility] Payment Agreement hs2 21:24 T-Sheet-- Draft Copy klr Chart Complete MTDD
--- NOTE | 2016-03-26 19:30 | EDDOCDS ---
Physician Documentation [facility] Name: Francisca Magaña Age: 66 yrs Sex: Female : 1950 Arrival Date: 03/24/2016 Time: 13:00 Bed 4 Private MD: [facility] Disposition: 03/24/16 15:10 Hospitalization ordered by Shanice Bang for Inpatient Admission. Preliminary diagnosis are Chronic obstructive pulmonary disease with (acute) exacerbation, Pleural effusion, not elsewhere classified, Hypotension. - Bed requested for PCU. - Status is Inpatient Admission. jmb - Condition is Stable. - Problem is new. - Symptoms are unchanged. Historical: - Allergies: SULFA (SULFONAMIDES) (Rash); - Home Meds: 1. Pradaxa 150 mg oral cap 1 cap 2 times per day 2. metoprolol tartrate 25 mg Oral tab 12.5 mg 2 times per day 3. atorvastatin 40 mg oral tab 1 tab once daily 4. ProAir HFA 108mcg inhalation HFAA 2 puffs every 6 hours every 2 hours as needed for SOB 5. Spiriva with HandiHaler 18 mcg Inhl CpDv 1 cap once daily 6. Symbicort 160-4.5 mcg/actuation inhalation HFAA 2 puffs 2 times per day 7. Breo Ellipta 200-25 mcg/dose inhalation dsdv 1 puff once daily 8. potassium chloride 10 mEq Oral TbER 1 tab 2 times per day 9. lisinopril 2.5 mg oral tab once daily 10. furosemide 80 mg oral tab 1 tab once daily 11. metformin 500 mg Oral tab 1 tab 2 times per day 12. hydrochlorothiazide 12.5 mg Oral tab 1 tab once daily 13. multivitamin Oral tab 1 tab daily 14. loratadine 10 mg Oral cap 10 mg daily as needed 15. aspirin 81 mg Oral TbEC 1 tab once daily 16. docusate calcium 240 mg Oral cap 1 cap 2 times per day - PMHx: CAD; CHF; COPD; Diabetes - NIDDM: controlled; Hypercholesterolemia; Hypertension; Myocardial infarction; Obesity; Sleep Apnea w/o CPAP; - PSHx: Colon Resection; Coronary Stents; Hernia repair; hernia revision; tendon repaired; - Social history: Smoking status: Patient states former smoker of tobacco. No barriers to communication noted, The patient speaks fluent Swiss. - Family history: Not pertinent. - : The pt / caregiver states he / she is on anticoagulants: Pradaxa (Dabigatran) Home medication list is obtained from the patient, patients' pharmacy. [employer] import data. - Exposure Risk Screening:: None identified. Vital Signs: 03/24 13:24 BP 92 / 55; Pulse 85; Resp 24; Temp 98.1(O); Pulse Ox 90% on 2 lpm NC; Weight 148.32 kg dem1 / 326.99 lbs; Height 5 ft. 7 in. (170.18 cm); Pain 8/10; 14:19 BP 109 / 53 (auto/); jmb 14:19 Pulse 84 MON; Pulse Ox 97% ; jmb 14:20 BP 80 / 39 RA Supine (man/lg); jrd 15:08 BP 118 / 56 (auto/); jmb 15:08 Pulse 94 MON; Pulse Ox 93% ; jmb 15:38 BP 125 / 68 (auto/); jmb 15:38 Pulse 96 MON; Pulse Ox 87% ; jmb 15:50 BP 122 / 69 (auto/); jmb 15:50 Pulse 92 MON; Pulse Ox 91% ; jmb 15:53 BP 121 / 56 (auto/); jmb 15:54 Pulse 92 MON; Pulse Ox 90% ; jmb 16:08 BP 142 / 83 (auto/); jmb 16:09 Pulse 94 MON; Pulse Ox 90% ; jmb 16:38 BP 112 / 57 (auto/); jmb 16:39 Pulse 90 MON; Pulse Ox 93% ; jmb 16:53 BP 108 / 61 (auto/); jmb 16:54 Pulse 92 MON; Pulse Ox 96% ; jmb 17:08 BP 107 / 59 (auto/); jmb 17:09 Pulse 94 MON; Pulse Ox 89% ; jmb 17:38 BP 124 / 58 (auto/); jmb 17:39 Pulse 92 MON; Pulse Ox 91% ; jmb 18:17 BP 124 / 60; Pulse 93; Resp 22; Temp 97.8(O); Pulse Ox 91% on 4 lpm NC; Pain 0/10; jmb 13:24 Body Mass Index 51.21 (148.32 kg, 170.18 cm) dem1 MDM: 13:10 Retanner/Pulse Ox/q 30 min VS ordered. br1 13:10 IV Saline Lock ordered. br1 13:10 Oxygen at 4L/Min NC or Home dosage ordered. br1 13:10 Rhythm Strip to chart ordered. br1 13:10 Undress patient appropriately for examination ordered. br1 13:12 B-Type Natiuretic Peptide Ordered. EDMS 13:12 Basic Metabolic Profile Ordered. EDMS 13:12 CBC with Diff Ordered. EDMS 13:12 Chest, 2 View (pa\E\lat) Ordered. EDMS 13:12 ECG WITH READING ER PHYS+CARDIAG ordered. EDMS 13:13 Albuterol-Ipratropium 1 neb Nebulizer every 20 minutes x3 ordered. br1 13:13 Call Respiratory ordered. br1 13:13 -Influenza A&B Rapid Antigen - Nose Ordered. EDMS 13:14 Solu-MEDROL 125 mg IVP once ordered. br1 13:14 -Arterial Blood Gas Ordered. EDMS 13:15 CARDIAC INJURY PROFILE Ordered. EDMS 13:15 TROPONIN Ordered. EDMS 13:31 Misc. Nursing Order ordered. br1 13:40 -Blood Culture (Adults Only), peripheral from different site, or from device/port/PICC br1 etc. if present ordered. 13:41 Lactic Acid (Rangel tube on ice) Ordered. EDMS 13:42 -Blood Culture Ordered. EDMS 14:15 -Arterial Blood Gas Reviewed. br1 14:15 Chest, 2 View (pa\E\lat) Reviewed. br1 14:16 -Blood Culture (Adults Only), peripheral from different site, or from device/port/PICC bcj etc. if present complete. 14:20 NS 0.9% 500 ml IV at bolus once ordered. br1 14:21 BED REQUEST+ADM ordered. EDMS 14:22 Ondansetron 4 mg IVP once ordered. br1 14:23 Call Respiratory complete. rs6 14:46 B-Type Natiuretic Peptide Reviewed. br1 14:46 Basic Metabolic Profile Reviewed. br1 14:46 CBC with Diff Reviewed. br1 14:46 -Influenza A&B Rapid Antigen - Nose Reviewed. br1 14:46 CARDIAC INJURY PROFILE Reviewed. br1 14:46 TROPONIN Reviewed. br1 14:59 Financial registration complete. hs2 15:05 Lactic Acid (Rangel tube on ice) Reviewed. br1 15:06 CT Chest Without Contrast Ordered. EDMS 15:06 Recheck B/P ordered. br1 15:06 cefTRIAXone 2 grams IVPB once over 30 mins; dilute in 50mL of NS or D5W ordered. br1 15:21 [facility] Payment Agreement was scanned into [employer] and attached to record. hs2 16:47 Admission / Observation Status ordered. EDMS 16:47 CONSISTENT CARBOHYDRATES ordered. EDMS 16:49 URINALYSIS Ordered. EDMS 16:49 BLOOD CULTURES Ordered. EDMS 16:49 BLOOD CULTURES Ordered. EDMS 16:51 GASTROINTESTINAL (GI) PANEL Ordered. EDMS 17:10 SPUTUM CULTURE AND GRAM STAIN Ordered. EDMS 17:32 CARDIAC MARKER PANEL Ordered. EDMS 17:34 LACTIC ACID LEVEL, LACTATE Ordered. EDMS 21:24 T-Sheet-- Draft Copy was scanned into [employer] and attached to record. klr Administered Medications: 13:30 Drug: Albuterol-Ipratropium 1 neb [ipratropium-albuterol 0.5 mg-3 mg(2.5 mg base)/3 mL js11 nebulization soln (1 neb)] Route: Nebulizer; 13:50 Drug: Albuterol-Ipratropium 1 neb [ipratropium-albuterol 0.5 mg-3 mg(2.5 mg base)/3 mL js11 nebulization soln (1 neb)] Route: Nebulizer; 14:01 Drug: Albuterol-Ipratropium 1 neb [ipratropium-albuterol 0.5 mg-3 mg(2.5 mg base)/3 mL js11 nebulization soln (1 neb)] Route: Nebulizer; 14:16 Drug: Solu-MEDROL 125 mg [Solu-Medrol 500 mg intravenous solution (125 mg)] Route: IVP; bcj Site: right forearm; 14:55 Drug: NS 0.9% 500 ml [sodium chloride 0.9 % intravenous solution] Route: IV; Rate: bcj bolus; Site: right forearm; 15:12 Drug: Ondansetron 4 mg [ondansetron HCl 2 mg/mL intravenous solution (2 mL)] Route: jmb IVP; Site: left forearm; 15:38 Drug: cefTRIAXone 2 grams [ceftriaxone 1 gram solution for injection] Route: IVPB; jmb Infused Over: 30 mins; Site: left forearm; Signatures: Dispatcher [employer] EDMS Kevin Rothman, RN RN Noble Ramirez MD MD br1 Dino Bains RN RN anjalib Tanesha Ryan RN RN sls2 Yamileth Coombs, FORENSIC SOCIAL WORKER FORENSIC SOCIAL WORKER rs6 Carlee Bell, Reg Reg hs2 CalebShena maria klr Tato San js11 The chart was reviewed and I authenticate all verbal orders and agree with the evaluation and treatment provided.Corrections: (The following items were deleted from the chart) 13:15 13:12 CARDIAC INJURY PROFILE+LAB ordered. EDMS EDMS 13:15 13:12 TROPONIN+LAB ordered. EDMS EDMS 16:51 16:49 GASTROINTESTINAL (GI) PANEL ordered. EDMS EDMS Attachments: 15:21 [facility] [place] Agreement hs2 21:24 T-Sheet-- Draft Copy klr Chart Complete MTDD
[2016-03-26 20:37] VITALS: BP 115/65
[2016-03-27] VITALS (8 sets, daily range): BP systolic 94–176; BP diastolic 53–83
[2016-03-27] MEDS: PIPERACILLIN/TAZOBACTAM SOD 3.375 GM in D5W MINI-BAG PLUS 50 ML IV SCH ×3 (04:35→20:54)
[2016-03-27] MEDS ORDERED: SLF 3 ML SYR IV PRN (05:15)
[2016-03-27] MEDS: SLF 3 ML SYR IV SCH ×3 (06:00→21:00)
[2016-03-27] MEDS: VANCOMYCIN HCL 1,000 MG, VIAL MATE ADAPTER 1 EACH in D5W 250 ML IV SCH ×3 (06:02→22:29)
[2016-03-27 06:07] LABS: MEAN CORPUSCULAR HEMOGLOBIN 25.9 pg (27.0-33.0); MEAN CORPUSCULAR HGB CONC 28.8 g/dl (32.0-36.5); MEAN CORPUSCULAR VOLUME 90.1 fl (80.0-96.0); RED CELL DISTRIBUTION WIDTH 16.5 % (11.5-14.5); WHITE BLOOD COUNT 6.9 K/mm3 (4.0-10.0)
[2016-03-27 06:22] LABS: ANION GAP 5 MEQ/L (8-16); BLOOD UREA NITROGEN 16 MG/DL (7-18); CALCIUM LEVEL 8.1 MG/DL (8.8-10.2); CARBON DIOXIDE LEVEL 30 MEQ/L (21-32); CHLORIDE LEVEL 104 MEQ/L (98-107); CREATININE FOR GFR 0.89 MG/DL (0.55-1.02); GLOMERULAR FILTRATION RATE > 60.0 (>45); GLUCOSE, FASTING 122 MG/DL (80-110); POTASSIUM SERUM 4.4 MEQ/L (3.5-5.1); SODIUM LEVEL 139 MEQ/L (136-145)
[2016-03-27] MEDS: TIOTROPIUM INHALER/CAPSULE (SPIRIVA) INH SCH (07:23)
[2016-03-27] MEDS: HumaLOG INSULIN (NovoLOG) PER UNIT SC SCH ×4 (07:30→20:24)
[2016-03-27] MEDS: DABIGATRAN ETEXILATE 75 MG CAP (PRADAXA) PO SCH ×2 (09:00→20:56)
[2016-03-27 09:50] LABS: LDH, BODY FLUID 85 U/L (NOT ESTABLISHED); TOTAL PROTEIN, BODY FLUID 2.3 G/DL (NOT ESTABLISHED)
[2016-03-27] MEDS: ATORVASTATIN 20 MG TAB PO SCH (09:58)
[2016-03-27] MEDS: PANTOPRAZOLE 40MG TAB (PROTONIX) PO SCH (09:58)
[2016-03-27] MEDS: FERROUS SULFATE 325MG TAB PO SCH ×2 (09:59→20:55)
[2016-03-27] MEDS: ASPIRIN 81 MG ENTERIC TAB PO SCH (09:59)
[2016-03-27] MEDS: POTASSIUM CHLORIDE 10 MEQ SR TABLET PO SCH ×2 (09:59→20:55)
[2016-03-27] MEDS: MULTIVITAMINS/MINERALS THERAP 1 TAB PO SCH (09:59)
[2016-03-27] MEDS: METOPROLOL TART 12.5 MG PER 1/2 TAB PO SCH (09:59)
[2016-03-27] MEDS: ACETAMINOPHEN TAB 650MG DOSE (2X325MG) PO PRN ×2 (09:59→21:00)
--- NOTE | 2016-03-27 10:05 | REP ---
TWO VIEW CHEST: Two views of the chest are performed status post left thoracentesis. There is no pneumothorax. There is bibasilar fibroatelectatic change. There is cardiomegaly. There is calcification and tortuosity of the thoracic aorta. IMPRESSION: No pneumothorax status post left thoracentesis. Signed by Darinel Rangel MD 03/27/2016 04:45 P
[2016-03-27 10:14] LABS: BF DIFF IF INDICATED? YES (NO); RBC PLEURAL FLUID < 10 (<10mm3 cells/uL); TNC PLEURAL FLUID 625 cells/uL (0-20)
[2016-03-27 10:33] LABS: FOLATE 11.7 NG/ML (>5.4)
[2016-03-27] MEDS ORDERED: FUROSEMIDE 40 MG TAB PO ONE (11:45)
[2016-03-27 12:27] LABS: CC BF DIFF EXAM CYTOCENTRIFUGE
--- NOTE | 2016-03-27 12:48 | IPNPDOC ---
Text Note Date of Service The patient was seen on 03/27/16 at 12:36. NOTE: Subjective: Patient is a 66 year old female with a PMHx of CHF (ECHO 05/2015 with normal- near normal EF, Grade 2 Diastolic dysfunction), COPD (on home O2 at 3 liters), DM2, DLP, HTN, atrial fibrillation (on anticoagulation), history of left pleural effusion (small to moderate) who presented to the ER with complaints of shortness of breath. She notes that she has been requiring more oxygen at home. She notes that she is coughing, but non-productive, no sputum. She denies fever or chills. She denies any leg swelling. She also noted that she has been experiencing some diarrhea, with 3-4 episodes daily in the last few days. She notes the diarrhea is loose, but no blood was noted. In the ER patient was found to be dyspneic with RR of 24, hypotensive with BP of 80/39. She recieve IV fluid bolus of normal saline and her blood pressure improved to SBP of 100s. She had an elevated lactic acid in the ER, so she has been continued with IV fluids and started on broad spectrum antibiotics ( Vancomycin and Zosyn). Patient has been seen and examined at the bedside. She was seen after her thoracentesis, she notes her breathing is doing a better than admission. She is concerned about her leg swelling. Objective: Vitals (See below) General: Sitting up in bed, no acute distress, AAOx3 HEENT: NC, AT CVS: Irregularly irregular, +S1S2 Lungs: Poor respiratory effort, Decreased lung sounds at left lung base, No wheezing / rhonchi / rales appreciated Abdomen: Soft, ND, NT, +BSx4 Extremities: +PPx4, No edema, no calf tenderness Assessment and plan: 1. Sepsis - possibly 2/2 pneumonia (CAP), possible gastrointestinal etiology - Symptomatic improvement in dyspnea, cough is still present - Oxygen requirements went back up to 4L (from baseline of 3L) - CT chest 03/24: Moderate left effusion with basilar and lingular atelectasis. Pulmonary vascular congestion. Ascites - Lactic acid has normalized - Blood cultures from ER 03/24 - Gram positive cocci in clusters; Repeat blood cultures on floor 03/24 - Negative; Influenza negative - s/p IV fluids - s/p Thoracentesis; removed 610 cc of fluid; appears transudative; awaiting gram stain and culture - Will continue with broad spectrum antibiotics (Vancomycin and Zosyn) - Day #4 2. Normocytic anemia - Hg baseline of 10-11 - Reticulocyte index of 0.9 - Hypoproliferative - Vitamin B12 and Foalte normal; Iron panel shows iron deficiency anemia - c/w Ferrous sulfate 325 BID 3. COPD - no evidence of COPD exacerbation - physical exam does not reveal any wheezing - will continue with inhaled therapy from home and duoneb PRN 4. Diastolic CHF, - ECHO 05/2014 - with normal / near-normal EF, Grade 2 diastolic dysfunction - CT chest shows evidence of worsening effusion and vascular congestion - Currently does not appear to have fluid overload on physical exam - s/p IV fluids - Restarted lasix today at home dose; 80 am and 40 pm 5. NIDDM2 - c/w insulin sliding scale - will add Levemir if glucose remains uncontrolled 6. DLP - c/w atorvastatin 7. HTN - BP has been low in the ER and currently remains in the low 100s - will restart Lisinopril 2.5 with holding parameters 8. JANE - not on CPAP - Will go for repeat sleep study in March for CPAP 9. History of DC - c/w ASA, Atorvastatin - Metoprolol dose has been decreased (with holding parameters) - Lisinopril have been held (re: Hypotension) 10. Atrial fibrillation - has been on rate control as an outpatient with metoprolol 25mg PO BID - Metoprolol dose has been continued at 12.5 mg PO BID (with holding parameters ) - restarted Pradaxa (re: thoracentesis - held for 2 doses) 11. GI prophylaxis - c/w protonix 12. DVT prophylaxis - restarted pradaxa VS,Fishbone, I+O VS, Fishbone, I+O Laboratory Tests 03/27/16 05:39 Calcium Level 8.1 L, Red Blood Count 3.20 L, Mean Corpuscular Volume 90.1, Mean Corpuscular Hemoglobin 25.9 L, Mean Corpuscular Hemoglobin Concent 28.8 L, Red Cell Distribution Width 16.5 H Vital Signs Date Time Temp Pulse Resp B/P Pulse Ox O2 Delivery O2 Flow Rate FiO2 03/27/16 09:59 90 121/65 03/27/16 09:39 91 Nasal Cannula 4.0 03/27/16 04:34 97.5 20 I&O- Last 24 Hours up to 6 AM 03/27/16 06:00 Intake Total 1250 ml Output Total 1075 ml Balance 175 ml MALACHI SOTO MD Mar 27, 2016 12:48
[2016-03-27] MEDS: LISINOPRIL *2.5 MG* TAB PO SCH (13:29)
--- NOTE | 2016-03-27 16:57 | REP ---
ULTRASOUND GUIDED LEFT THORACENTESIS: The procedure was performed under the direct supervision of Dr. Rangel. The risks and benefits of the procedure were explained to the patient and informed consent was obtained. The left pleural effusion was localized using ultrasound guidance. The skin was prepped and draped in a sterile fashion. 1% lidocaine was used as a local anesthetic. An #8-Occitan multisidehole catheter was inserted using trocar technique. 610 mL of ayanna colored fluid was withdrawn with a sample sent to the lab for analysis. The patient tolerated the procedure well and there were no immediate complications. Reviewed by SABRA Preciado 03/28/2016 09:40 AEdited and Signed by Darinel Rangel MD 03/28/2016 03:31 P
[2016-03-27] MEDS: FUROSEMIDE 40 MG TAB PO SCH (17:00)
[2016-03-27] MEDS: METOPROLOL TART 25 MG TABLET PO SCH (20:58)
[2016-03-28] MEDS: IPRATROPIUM 0.5MG/ALBUTEROL 2.5MG INH SOL UD 3ML (DUONEB)(J7620) NEB PRN ×2 (01:20→07:06)
[2016-03-28] MEDS: PIPERACILLIN/TAZOBACTAM SOD 3.375 GM in D5W MINI-BAG PLUS 50 ML IV SCH (03:22)
[2016-03-28 04:00] VITALS: BP 116/64
[2016-03-28] MEDS: VANCOMYCIN HCL 1,000 MG, VIAL MATE ADAPTER 1 EACH in D5W 250 ML IV SCH (04:43)
[2016-03-28] MEDS: SLF 3 ML SYR IV SCH ×3 (05:41→20:51)
[2016-03-28 05:44] LABS: MEAN CORPUSCULAR HEMOGLOBIN 26.1 pg (27.0-33.0); MEAN CORPUSCULAR HGB CONC 29.1 g/dl (32.0-36.5); MEAN CORPUSCULAR VOLUME 89.7 fl (80.0-96.0); RED CELL DISTRIBUTION WIDTH 16.7 % (11.5-14.5); WHITE BLOOD COUNT 6.8 K/mm3 (4.0-10.0)
[2016-03-28 05:50] LABS: ANION GAP 6 MEQ/L (8-16); BLOOD UREA NITROGEN 15 MG/DL (7-18); CALCIUM LEVEL 8.1 MG/DL (8.8-10.2); CARBON DIOXIDE LEVEL 29 MEQ/L (21-32); CHLORIDE LEVEL 105 MEQ/L (98-107); CREATININE FOR GFR 0.92 MG/DL (0.55-1.02); GLOMERULAR FILTRATION RATE > 60.0 (>45); GLUCOSE, FASTING 135 MG/DL (80-110); SODIUM LEVEL 140 MEQ/L (136-145)
[2016-03-28] MEDS: TIOTROPIUM INHALER/CAPSULE (SPIRIVA) INH SCH (07:06)
[2016-03-28 08:00] VITALS: BP 118/56
--- NOTE | 2016-03-28 08:29 | REP ---
PORTABLE CHEST X-RAY: SINGLE VIEW. History: Hypoxia. Status post thoracentesis. Comparison study 27 March 2016. Findings: Moderate cardiomegaly is again observed unchanged. There is hazy opacity in the left base and the left hemidiaphragm is indistinct. The radiograph is poorly penetrated due to patient body habitus. There is no evidence of pneumothorax or new infiltrate. Signed by Gildardo Cage MD 03/28/2016 12:34 P
[2016-03-28] MEDS: HumaLOG INSULIN (NovoLOG) PER UNIT SC SCH ×4 (08:30→20:45)
[2016-03-28] MEDS: PANTOPRAZOLE 40MG TAB (PROTONIX) PO SCH (08:30)
[2016-03-28] MEDS: MULTIVITAMINS/MINERALS THERAP 1 TAB PO SCH (08:31)
[2016-03-28] MEDS: DABIGATRAN ETEXILATE 75 MG CAP (PRADAXA) PO SCH ×2 (08:31→20:50)
[2016-03-28] MEDS: ATORVASTATIN 20 MG TAB PO SCH (08:31)
[2016-03-28] MEDS: POTASSIUM CHLORIDE 10 MEQ SR TABLET PO SCH ×2 (08:32→20:50)
[2016-03-28] MEDS: FUROSEMIDE 80 MG TAB PO SCH (08:32)
[2016-03-28] MEDS: FERROUS SULFATE 325MG TAB PO SCH ×2 (08:32→20:50)
[2016-03-28] MEDS: ASPIRIN 81 MG ENTERIC TAB PO SCH (08:32)
[2016-03-28] MEDS: METOPROLOL TART 25 MG TABLET PO SCH (08:33)
[2016-03-28] MEDS: LISINOPRIL *2.5 MG* TAB PO SCH (08:33)
[2016-03-28] MEDS: ACETAMINOPHEN TAB 650MG DOSE (2X325MG) PO PRN ×2 (09:17→23:28)
[2016-03-28] MEDS: ALBUTEROL SULFATE 2.5 MG/0.5 ML INH NEB SOLN NEB SCH ×4 (11:08→23:15)
[2016-03-28 11:25] LABS: MAGNESIUM LEVEL 2.2 MG/DL (1.8-2.4)
--- NOTE | 2016-03-28 11:31 | IPN ---
DATE: 03/28/2016 Patient is seen and examined at the bedside. Chart has been reviewed. Upon returning from the bathroom, the patient became more dyspneic. Currently saturating 92% on 4 liters nasal cannula. Denies any chest pain, pressure or tightness, nausea, vomiting, epigastric discomfort, fever or chills. Telemetry shows three beats of nonsustained V-tach. Potassium level is normal. Magnesium was 2.1 yesterday. Magnesium today is pending. No other issues aside from chronic lower extremity edema, which is unchanged from yesterday. The patient denies dizziness or lightheadedness. Blood pressure had been running in the 90s , systolic to about 110. Temperature 96.3, pulse 94, respiratory rate 22, blood pressure 110/60, 92% on 4 liters nasal cannula. Generally, patient is in no distress, able to complete full sentences by using respiratory accessory muscles. Lungs diminished breath sounds, no wheezing or rales. Heart S1 and S2, irregular. Abdomen is soft, nontender, nondistended. Morbidly obese. Positive bowel sounds times four quadrants. Extremities no cyanosis or clubbing. LABORATORY DATA: CBC and metabolic panel have been reviewed. ASSESSMENT/PLAN: This is a 66-year-old female with a history of congestive heart failure (CHF), grade 2 diastolic dysfunction, normal systolic function, COPD on chronic home oxygen at 3 liters nasal cannula at all times, type 2 diabetes, dyslipidemia, hypertension, atrial fibrillation, history of left pleural effusion, small to moderate being worked up for obstructive sleep apnea (JANE) with planned sleep apnea study as an outpatient, who presented with worsening shortness of breath, cough which is non productive without sputum, fever or chills. IMPRESSION: 1. Community acquired pneumonia. Currently on vancomycin and Zosyn, changed to ceftriaxone today. Blood culture showed gram positive cocci in clusters. Repeat cultures were negative. Influenza is negative. Thoracentesis removed 610 mL of fluid, which was transudative. 2. Normocytic anemia. Hemoglobin of 10-12. Hypoproliferative retic index 0.9, B12 and folate are normal. 3. Iron deficiency. Continue with ferrous sulfate. 4. COPD. No exacerbation. No wheezing on exam. Continue with inhaled therapy and DuoNebs. 5. Diastolic heart failure. CT shows worsening effusion, vascular congestion and the patient was restarted on her home dose of Lasix. If blood pressure permits, will change to IV Lasix for better diuresis. 6. Nonsustained V-tach. Obtain an echo. Will check potassium and magnesium. 7. Hypertension. Currently with systolic pressure in the 90s. Will discontinue lisinopril for now, and decrease metoprolol dose. 8. Chronic hypoxic respiratory failure. At home dose of oxygen. 9. Irregular rhythm with PACs. Obtain a 12 lead EKG. 10. Obesity. Rule out sleep apnea. Continue with home oxygen. MTDD
[2016-03-28] MEDS: cefTRIAXone SOD 2 GM in D5W MINI-BAG PLUS 50 ML IV SCH (11:40)
[2016-03-28 12:00] VITALS: BP 122/71
[2016-03-28] MEDS: FUROSEMIDE 40 MG TAB PO SCH (15:59)
[2016-03-28 16:25] VITALS: BP_SYST 112; BP_SYST 121; BP_SYST 99; BP_DIAS 49; BP_DIAS 58; BP_DIAS 59
[2016-03-28 20:00] VITALS: BP 107/52
--- NOTE | 2016-03-28 20:23 | ECHO ---
DATE OF PROCEDURE: 03/28/2016 REFERRING PHYSICIAN: Lilly Medina MD INDICATION: Nonsustained ventricular tachycardia. HEIGHT: 170 cm WEIGHT: 169 kg. DIMENSIONS: IVS: 1.4 LV: 5.6 LVPW: 1.4 LA: 4.6 Aorta: 2.8 FINDINGS: Study is of very limited technical quality. The patient is morbidly obese with body mass index 58. Left ventricle is on upper limits of normal size. There is mild to moderate left ventricular hypertrophy. Based on very limited views overall left ventricular systolic function is going to be probably mildly reduced. Right ventricle appears enlarged, but it was very poorly seen. Both atria are likely severely enlarged. Aortic valve is sclerotic, I cannot comment much on its structure. There is also some thickening of mitral leaflets and mitral annular calcifications, but leaflet mobility seems to be grossly preserved. Tricuspid valve appears grossly normal, again, based on very limited visualization. Pulmonic valve was not well seen. Pericardial fat pad is noted. Inferior vena cava was not visualized. Aortic root is normal. Aortic arch and abdominal aorta were not well seen. Doppler interrogation of aortic valve reveals no stenosis and trivial insufficiency. There is likely some degree of mitral insufficiency possibly due to posterior mitral leaflet prolapse with mitral regurgitation (MR) jet oriented towards the atrial surface of anterior mitral leaflet. I cannot reliably assess the severity but it does not look worse than maybe mild or [id number]. Tricuspid valve and pulmonic valve were poorly seen and even though there is some degree of tricuspid insufficiency, I am unable to estimate pulmonary artery pressure. Mitral inflow pattern and tissue Doppler imaging revealed grade 2 diastolic dysfunction. CONCLUSIONS: 1. Study is of very limited technical quality. 2. Borderline dilated left ventricle with mild to moderate left ventricular hypertrophy (LVH) and overall at least mildly reduced left ventricle (LV) systolic function. 3. Dilated right ventricle. 4. Aortic sclerosis but no significant stenosis or insufficiency. 5. Some degree of mitral insufficiency, probably not more than [id number]. 6. Unable to estimate central venous pressure and pulmonary artery pressure. COMMENT: Subacute bacterial endocarditis (SBE) prophylaxis is not recommended. Overall very limited echocardiogram. [facility]
[2016-03-28] MEDS: FLUTICASONE PROP 0.05% NASAL SPRAY 16 GM (FLONASE) PRN (20:54)
--- NOTE | 2016-03-28 22:47 | ECGEPIP ---
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
[2016-03-28 23:59] VITALS: BP 94/53
[2016-03-29] VITALS (8 sets, daily range): BP systolic 94–131; BP diastolic 51–62
[2016-03-29] MEDS: ALBUTEROL SULFATE 2.5 MG/0.5 ML INH NEB SOLN NEB SCH ×6 (03:08→23:27)
[2016-03-29] MEDS: SLF 3 ML SYR IV SCH ×3 (03:44→20:40)
[2016-03-29 05:38] LABS: MEAN CORPUSCULAR HEMOGLOBIN 24.8 pg (27.0-33.0); MEAN CORPUSCULAR HGB CONC 28.7 g/dl (32.0-36.5); MEAN CORPUSCULAR VOLUME 86.7 fl (80.0-96.0); RED CELL DISTRIBUTION WIDTH 18.3 % (11.5-14.5); WHITE BLOOD COUNT 6.5 K/mm3 (4.0-10.0)
[2016-03-29 05:45] LABS: ANION GAP 5 MEQ/L (8-16); BLOOD UREA NITROGEN 15 MG/DL (7-18); CALCIUM LEVEL 7.9 MG/DL (8.8-10.2); CARBON DIOXIDE LEVEL 30 MEQ/L (21-32); CHLORIDE LEVEL 105 MEQ/L (98-107); CREATININE FOR GFR 0.92 MG/DL (0.55-1.02); GLOMERULAR FILTRATION RATE > 60.0 (>45); GLUCOSE, FASTING 125 MG/DL (80-110); MAGNESIUM LEVEL 2.1 MG/DL (1.8-2.4); POTASSIUM SERUM 4.1 MEQ/L (3.5-5.1); SODIUM LEVEL 140 MEQ/L (136-145)
[2016-03-29] MEDS: TIOTROPIUM INHALER/CAPSULE (SPIRIVA) INH SCH (07:29)
[2016-03-29] MEDS: ASPIRIN 81 MG ENTERIC TAB PO SCH (08:12)
[2016-03-29] MEDS: FERROUS SULFATE 325MG TAB PO SCH ×2 (08:12→20:39)
[2016-03-29] MEDS: DABIGATRAN ETEXILATE 75 MG CAP (PRADAXA) PO SCH ×2 (08:12→20:39)
[2016-03-29] MEDS: ATORVASTATIN 20 MG TAB PO SCH (08:12)
[2016-03-29] MEDS: POTASSIUM CHLORIDE 10 MEQ SR TABLET PO SCH ×2 (08:13→20:40)
[2016-03-29] MEDS: MULTIVITAMINS/MINERALS THERAP 1 TAB PO SCH (08:13)
[2016-03-29] MEDS: PANTOPRAZOLE 40MG TAB (PROTONIX) PO SCH (08:13)
[2016-03-29] MEDS: FUROSEMIDE 80 MG TAB PO SCH (08:13)
[2016-03-29] MEDS: HumaLOG INSULIN (NovoLOG) PER UNIT SC SCH ×4 (08:14→21:00)
[2016-03-29] MEDS: ACETAMINOPHEN TAB 650MG DOSE (2X325MG) PO PRN ×2 (10:13→23:49)
[2016-03-29] MEDS: cefTRIAXone SOD 2 GM in D5W MINI-BAG PLUS 50 ML IV SCH (12:12)
--- NOTE | 2016-03-29 17:13 | IPN ---
DATE: 03/29/2016 Patient is seen and examined at the bedside. Chart has been reviewed. Patient denies any dizziness, lightheadedness. No chest pain, pressure, or tightness. She is still short of breath, especially with ambulation and desaturates to 88% and currently requiring 4 liters of oxygen. Repeat xray does not show pulmonary edema or any changes in the infiltrates, there is hazy opacity at the left base and left hemidiaphragm is indistinct, no pneumothorax and no new infiltrate has been seen. There is no fever or chills overnight. Patient's white count has been normal for the past 4 days. Input and output has been net negative for the past 3 days. Current weight, however, is 167.5 kg, with admission weight of 158.9 kg. Patient is currently in a fluid restriction. Complains of generalized weakness, unable to ambulate due to worsening shortness of breath. Temperature 96.8, pulse 89, respiratory rate 22, blood pressure 111/52, 97% on 4 liters nasal cannula. GENERALLY: Patient is awake, alert, oriented times three. Answering questions appropriately. She has poor dentition with missing teeth. No jugular venous distention. Moist mucous membranes. LUNGS: Diminished with bilateral crackles at the bases. HEART: S1, S2, irregularly irregular. ABDOMEN: Soft, nontender, nondistended. Positive bowel sounds. EXTREMITIES: 2+ pitting edema. CBC and metabolic panel have been reviewed. ASSESSMENT AND PLAN: This is a 66-year-old female with history of chronic obstructive pulmonary disease (COPD), congestive heart failure (CHF) grade 2 diastolic dysfunction with normal systolic function, on chronic 3 liters of oxygen with hypoxic respiratory failure, type 2 diabetes, dyslipidemia, hypertension, history of left pleural effusions, mild to moderate, being worked up for obstructive sleep apnea as outpatient, presented with worsening shortness of breath, cough which is nonproductive without sputum, fever, or chills. Patient is currently being treated for the followin. Community-acquired pneumonia. Patient has received vancomycin and Zosyn. Patient has no sputum culture. She is currently switched over to ceftriaxone with no fever, chills, or worsening white count. 2. Congestive heart failure (CHF), diastolic dysfunction. Patient appears to be much more hypoxic which is most likely due to community-acquired pneumonia, however she does have pitting edema. We will change to intravenous (IV) Lasix for better diuresis at 20 mg with holding parameters for systolic pressure less than 110. 3. Nonsustained ventricular tachycardia. Potassium and magnesium are within normal limits, supplement if needed. Echocardiogram read by Dr. Choudhary shows some degree of mitral insufficiency, not more than mild to moderate, dilated right ventricle. 4. Morbid obesity. Rule out obstructive sleep apnea as outpatient. 5. Iron deficiency anemia. Hemoglobin is stable. Continue with ferrous sulfate for now. 6. Hypertension. We have had to discontinue lisinopril and metoprolol secondary to low blood pressure in the 90s. Will discontinue patient's orthostatics as she does not appear to be dehydrated. 7. Chronic hypoxic respiratory failure. Currently on 4 liters nasal cannula, home dose is 3 liters. Will continue with diuresis until patient is much more euvolemic. Patient may be transferred to medical/surgical floor as she is medically stable. We will change to oral antibiotics at discharge. Continue to work with physical therapy. She is currently not safe for discharge as of today. Patient will require continued diuresis at least for the next 4 days until she is euvolemic and back to her baseline 3 liters of home oxygen. MTDD
[2016-03-29] MEDS: FUROSEMIDE 20 MG/2 ML VIAL (J1940) IV SCH ×2 (18:27→23:48)
[2016-03-30] MEDS: ALBUTEROL SULFATE 2.5 MG/0.5 ML INH NEB SOLN NEB SCH ×6 (03:16→23:36)
[2016-03-30] MEDS: FUROSEMIDE 20 MG/2 ML VIAL (J1940) IV SCH ×4 (05:58→23:07)
[2016-03-30] MEDS: SLF 3 ML SYR IV SCH ×3 (05:58→21:45)
[2016-03-30 06:00] VITALS: BP 128/61
[2016-03-30 06:29] LABS: MEAN CORPUSCULAR HEMOGLOBIN 26.4 pg (27.0-33.0); MEAN CORPUSCULAR HGB CONC 29.5 g/dl (32.0-36.5); MEAN CORPUSCULAR VOLUME 89.6 fl (80.0-96.0); RED CELL DISTRIBUTION WIDTH 17.6 % (11.5-14.5); WHITE BLOOD COUNT 6.2 K/mm3 (4.0-10.0)
[2016-03-30 06:39] LABS: CALCIUM LEVEL 8.2 MG/DL (8.8-10.2); CREATININE FOR GFR 1.03 MG/DL (0.55-1.02); GLOMERULAR FILTRATION RATE 57.1 (>45); POTASSIUM SERUM 3.8 MEQ/L (3.5-5.1)
[2016-03-30] MEDS: TIOTROPIUM INHALER/CAPSULE (SPIRIVA) INH SCH (07:08)
[2016-03-30] MEDS: PANTOPRAZOLE 40MG TAB (PROTONIX) PO SCH (08:41)
[2016-03-30] MEDS: HumaLOG INSULIN (NovoLOG) PER UNIT SC SCH ×4 (08:41→21:00)
[2016-03-30] MEDS: ATORVASTATIN 20 MG TAB PO SCH (08:41)
[2016-03-30] MEDS: FERROUS SULFATE 325MG TAB PO SCH ×2 (08:41→21:41)
[2016-03-30] MEDS: ASPIRIN 81 MG ENTERIC TAB PO SCH (08:41)
[2016-03-30] MEDS: DABIGATRAN ETEXILATE 75 MG CAP (PRADAXA) PO SCH ×2 (08:41→21:41)
[2016-03-30] MEDS: POTASSIUM CHLORIDE 10 MEQ SR TABLET PO SCH ×2 (08:41→21:40)
[2016-03-30] MEDS: MULTIVITAMINS/MINERALS THERAP 1 TAB PO SCH (08:41)
[2016-03-30] MEDS: PERCOCET 5MG/325MG TAB PO PRN (11:00)
--- NOTE | 2016-03-30 11:31 | IPN ---
DATE: 03/30/2016 Patient is seen and examined at the bedside. Chart has been reviewed. This morning, patient still complains of increasing shortness of breath with ambulation. Denies any paroxysmal nocturnal dyspnea (PMD) or orthopnea. She chronic two pillow orthopnea and has chronic lower extremity edema. Patient has been diuresing well, 3.7 liters last night, negative 2.6 liters overnight. Current weight is 161 kg from a peak weight of 168.5 kg on intravenous Lasix. She denies any lightheadedness, dizziness this morning and has no other complaints. VITALS: Temperature 97, pulse 101, respiratory 20, blood pressure 128/61, 89% on 4 liters nasal cannula. General: Awake, alert, oriented times three, answering questions appropriately. No use of respiratory accessory muscles. Able to complete full sentences. She has poor dentition with missing teeth. No jugular venous distention. Moist mucous membranes. Lungs: Diminished breath sounds bilaterally with fine crackles at the bases. Heart: S1, S2. Irregular. Abdomen: Obese, soft, nontender, nondistended. Positive bowel sounds times four quadrants. No hepatosplenomegaly, rebound or guarding. Extremities: 2+ pitting edema. 03/30 CBC, metabolic panel have been reviewed. Creatinine is notable 1.03. BNP was 240. ASSESSMENT AND PLAN: This is a 66-year-old female with history of Chronic obstructive pulmonary disease (COPD), congestive heart failure (CHF) grade 2 diastolic dysfunction with normal systolic function on chronic 3 liters of oxygen with chronic hypoxic respiratory failure, type 2 diabetes, dyslipidemia, hypertension, history of left pleural effusion mild to moderate, being worked up for obstructive sleep apnea, presented with shortness of breath, cough which was nonproductive without sputum, fever or chills. CURRENT ISSUES: 1. Acute on chronic hypoxic respiratory failure. Patient's baseline oxygen requirement is 3 liters, currently at 4 liters. She is currently being diuresed with intravenous Lasix to net negative with a 1.8 fluid restriction according to the patient per Dr. Choudhary. She was initially placed on 1.5 liter fluid restriction and increased to 1.8 eventually. Patient's dry weight is usually 324 pounds. She is currently still hypoxic at 89% via nasal cannula. She appears to be diuresing well with weight loss from 167.5 kg to 161.6 kg. 2. Congestive heart failure (CHF), diastolic dysfunction, appears to be much more hypoxic, most likely secondary to community acquired pneumonia but with persistent pitting edema, patient has been changed to IV Lasix with better diuresis. Holding parameters for systolic pressure less than 110. 3. Nonsustained ventricular tachycardia, three beats on telemetry 4 days ago. Echocardiogram shows mild mitral insufficiency, not more than mild to moderate dilated right ventricle. Potassium and magnesium are within normal limits. Supplement them if needed. 4. Community acquired pneumonia. Patient had initially received broad spectrum antibiotics with vancomycin and Zosyn. Sputum culture negative. Blood culture showed staphylococcus capitis with repeat blood culture being negative. Patient is currently on ceftriaxone with no fever or chills and stable white count. 5. Hypertension. Patient's lisinopril and metoprolol have been discontinued due to low blood pressure in the 90s. Patient's orthostatics were discontinued as she appears to not be dehydrated. Will resume low dose metoprolol for better rate control. 6. Morbid obesity, probable obstructive sleep apnea. Patient will need a formal sleep study as outpatient. Continue with supplemental oxygen for now. 7. Acute on chronic hypoxic respiratory failure, currently on 4 liters of oxygen, previously on 3 liters most likely secondary to community acquired pneumonia. Continue with antibiotics for now. Patient was medically stable on medical/surgical floor, not safe for discharge as yet and has not passed a home safety evaluation. DISPOSITION: Possible discharge over the weekend. Patient will need a few more days of diuresis, monitor for worsening symptoms. Anemia. No acute indication for red blood cell transfusion. If patient has persistent hemoglobin less than 8, will transfuse 1-2 units of blood. She appears to have anemia of chronic disease. Stool for blood is still pending. Will start on iron supplements and vitamin C. [facility]
[2016-03-30] MEDS: ASCORBIC ACID 500 MG TAB PO SCH ×2 (12:12→17:23)
[2016-03-30] MEDS: cefTRIAXone SOD 2 GM in D5W MINI-BAG PLUS 50 ML IV SCH (12:12)
[2016-03-30] MEDS: METOPROLOL TART 12.5 MG PER 1/2 TAB PO SCH ×2 (12:13→21:40)
[2016-03-30 14:00] VITALS: BP 118/58
[2016-03-30 17:23] VITALS: BP 128/64
[2016-03-30] MEDS: DOCUSATE SODIUM 100 MG CAP PO PRN (21:40)
[2016-03-30 22:00] VITALS: BP 118/64
[2016-03-30] MEDS: ACETAMINOPHEN TAB 650MG DOSE (2X325MG) PO PRN (23:07)
[2016-03-31] MEDS: ONDANSETRON 4MG/2ML VIAL (J2405) IV PRN (03:15)
[2016-03-31] MEDS: ALBUTEROL SULFATE 2.5 MG/0.5 ML INH NEB SOLN NEB SCH (03:44)
[2016-03-31] MEDS: FUROSEMIDE 20 MG/2 ML VIAL (J1940) IV SCH ×4 (05:14→23:54)
[2016-03-31] MEDS: SLF 3 ML SYR IV SCH ×3 (05:14→21:18)
[2016-03-31 06:00] VITALS: BP 137/61
[2016-03-31 06:45] LABS: MEAN CORPUSCULAR HEMOGLOBIN 25.3 pg (27.0-33.0); MEAN CORPUSCULAR HGB CONC 28.6 g/dl (32.0-36.5); MEAN CORPUSCULAR VOLUME 88.5 fl (80.0-96.0); RED CELL DISTRIBUTION WIDTH 19.4 % (11.5-14.5); WHITE BLOOD COUNT 7.6 K/mm3 (4.0-10.0)
[2016-03-31 06:50] LABS: CALCIUM LEVEL 8.4 MG/DL (8.8-10.2); CREATININE FOR GFR 1.02 MG/DL (0.55-1.02); GLOMERULAR FILTRATION RATE 57.7 (>45); POTASSIUM SERUM 3.8 MEQ/L (3.5-5.1)
[2016-03-31] MEDS: TIOTROPIUM INHALER/CAPSULE (SPIRIVA) INH SCH (07:07)
[2016-03-31] MEDS: IPRATROPIUM 0.5MG/ALBUTEROL 2.5MG INH SOL UD 3ML (DUONEB)(J7620) NEB SCH ×4 (07:07→19:23)
[2016-03-31] MEDS ORDERED: BISACODYL 10 MG SUPP PR PRN (07:45)
[2016-03-31] MEDS ORDERED: FLEET ENEMA PR PRN (07:45)
[2016-03-31] MEDS: DABIGATRAN ETEXILATE 75 MG CAP (PRADAXA) PO SCH ×2 (08:55→21:17)
[2016-03-31] MEDS: METOPROLOL TART 12.5 MG PER 1/2 TAB PO SCH ×2 (08:56→21:17)
[2016-03-31] MEDS: PANTOPRAZOLE 40MG TAB (PROTONIX) PO SCH (08:56)
[2016-03-31] MEDS: ACETAMINOPHEN TAB 650MG DOSE (2X325MG) PO PRN ×2 (08:56→18:28)
[2016-03-31] MEDS: MULTIVITAMINS/MINERALS THERAP 1 TAB PO SCH (08:56)
[2016-03-31] MEDS: ATORVASTATIN 20 MG TAB PO SCH (08:56)
[2016-03-31] MEDS: POTASSIUM CHLORIDE 10 MEQ SR TABLET PO SCH ×2 (08:57→21:17)
[2016-03-31] MEDS: FERROUS SULFATE 325MG TAB PO SCH ×2 (08:57→21:17)
[2016-03-31] MEDS: ASCORBIC ACID 500 MG TAB PO SCH ×2 (08:57→17:36)
[2016-03-31] MEDS: ASPIRIN 81 MG ENTERIC TAB PO SCH (08:57)
[2016-03-31] MEDS: HumaLOG INSULIN (NovoLOG) PER UNIT SC SCH ×4 (08:57→21:00)
--- NOTE | 2016-03-31 09:06 | IPN ---
DATE: 03/31/2016 The patient had a coughing fit this morning. States that she felt nauseous afterwards and received Zofran. She continues to have dyspnea on exertion. Chronic lower extremity edema is unchanged despite the diuresis net negative for the past four days. The patient denies dizziness or lightheadedness. She also complains of constipation and has not had a bowel movement without difficulty for at least 3 days. She has had two bowel movements yesterday, very difficulty to get out and requested a stool softener. Vitals: Temperature 97.1, pulse 91, respiratory rate 18, blood pressure 137/.61, 90% 4 liters nasal cannula. Generally, the patient is awake, alert, oriented times three answering questions appropriately. Speaks in full sentences. No cyanosis. No use of respiratory accessory muscles. Has poor dentition with missing teeth. No jugular venous distention. Moist mucous membranes. Lungs are clear to auscultation. No wheezing rales or rhonchi. Heart: S1, S2. Irregular. Abdomen is obese, soft, nontender, nondistended, positive bowel sounds in all four quadrants. No hepatosplenomegaly, rebound or guarding. Extremities: 2+ pitting edema, unchanged. LAB DATA: CBC, metabolic panel have been reviewed. Microbiology has been reviewed. ASSESSMENT/PLAN: This is a 66-year-old female with a history COPD, congestive heart failure, grade 2 diastolic dysfunction with normal systolic function on chronic 3 liters of home oxygen with chronic hypoxic respiratory failure, type 2 diabetes, dyslipidemia, hypertension, left pleural effusion, mild to moderate being worked up for sleep apnea as an outpatient, who presented with worsening shortness of breath, nonproductive cough without sputum, fever or chills. Current Issues: 1. Acute on chronic hypoxic respiratory failure: The patient's baseline oxygen requirement is 3 liters, currently at 4 liters. She is currently being diuresed with intravenous Lasix with a net negative with 1.8 liter fluid restriction, according to the patient per Dr. Choudhary. The patient's dry weight is 324 pounds. She is still hypoxic. She appeared to be diuresing well and has been net negative for the past 4 days. To continue with diuresis and treatment for pneumonia. 2. Community acquired pneumonia. The patient had initially been treated with broad spectrum antibiotics with vancomycin and Zosyn. Sputum cultures could not be obtained as the patient has had a dry cough. Blood cultures showed Staphylococcus capitus with repeat blood cultures being negative. She has had no fever, no chills and a stable white count. She is currently on IV ceftriaxone with improvement, still hypoxic. Will continue with nebulizer treatments and her Spiriva for now. 3. Congestive heart failure diastolic dysfunction: She appears to be more hypoxic but most likely secondary to pneumonia, but with persistent edema. The patient appears to be euvolemic with no signs of pulmonary edema on chest x-ray. The patient has been changed to IV Lasix for better diuresis with holding parameters for systolic pressure less than 110. 4. Hypertension: Lisinopril and metoprolol have been discontinued to prior blood pressure in the 90s systolic. The patient is orthostatic. Will discontinue this as she does not appear to be dehydrated. The patient appears to be slightly more tachycardic. She has been receiving low dose of pressor 12.5 mg by mouth twice a day. 5. Obstructive sleep apnea, probable: The patient is waiting a sleep study scheduled for next week. The patient may be discharged either Sunday or Sunday. Will continue diuresis over the weekend. She will need to reschedule her sleep study exam. 6. History of coronary artery disease status post two stents. She is resumed on low dose metoprolol at a reduced dose due to diuresis. Will resume low dose lisinopril at discharge. 7. History of ischemic bowel: The patient is continued on aspirin and Pradaxa. MTDD
[2016-03-31] MEDS: DOCUSATE SODIUM 100 MG CAP PO PRN (12:10)
[2016-03-31] MEDS: cefTRIAXone SOD 2 GM in D5W MINI-BAG PLUS 50 ML IV SCH (12:11)
[2016-03-31 12:12] VITALS: BP 114/55
[2016-03-31 14:00] VITALS: BP 130/62
[2016-03-31 17:38] VITALS: BP 132/72
[2016-03-31 22:00] VITALS: BP 115/58
[2016-04-01] MEDS: ACETAMINOPHEN TAB 650MG DOSE (2X325MG) PO PRN ×2 (03:03→08:36)
[2016-04-01 06:00] VITALS: BP 113/55
[2016-04-01] MEDS: FUROSEMIDE 20 MG/2 ML VIAL (J1940) IV SCH ×3 (06:15→17:43)
[2016-04-01] MEDS: SLF 3 ML SYR IV SCH ×3 (06:15→21:16)
[2016-04-01] MEDS: IPRATROPIUM 0.5MG/ALBUTEROL 2.5MG INH SOL UD 3ML (DUONEB)(J7620) NEB SCH ×4 (07:06→19:10)
[2016-04-01] MEDS: TIOTROPIUM INHALER/CAPSULE (SPIRIVA) INH SCH (07:07)
[2016-04-01 08:03] LABS: ANION GAP 7 MEQ/L (8-16); BLOOD UREA NITROGEN 18 MG/DL (7-18); CALCIUM LEVEL 8.3 MG/DL (8.8-10.2); CARBON DIOXIDE LEVEL 31 MEQ/L (21-32); CHLORIDE LEVEL 102 MEQ/L (98-107); CREATININE FOR GFR 0.94 MG/DL (0.55-1.02); GLOMERULAR FILTRATION RATE > 60.0 (>45); GLUCOSE, FASTING 128 MG/DL (80-110); POTASSIUM SERUM 4.2 MEQ/L (3.5-5.1); SODIUM LEVEL 140 MEQ/L (136-145)
[2016-04-01] MEDS: HumaLOG INSULIN (NovoLOG) PER UNIT SC SCH ×4 (08:32→21:00)
[2016-04-01] MEDS: ASCORBIC ACID 500 MG TAB PO SCH ×2 (08:32→17:43)
[2016-04-01] MEDS: ASPIRIN 81 MG ENTERIC TAB PO SCH (08:33)
[2016-04-01] MEDS: METOPROLOL TART 12.5 MG PER 1/2 TAB PO SCH ×2 (08:33→21:16)
[2016-04-01] MEDS: DABIGATRAN ETEXILATE 75 MG CAP (PRADAXA) PO SCH ×2 (08:33→21:16)
[2016-04-01] MEDS: PANTOPRAZOLE 40MG TAB (PROTONIX) PO SCH (08:33)
[2016-04-01] MEDS: ATORVASTATIN 20 MG TAB PO SCH (08:34)
[2016-04-01] MEDS: FLUTICASONE PROP 0.05% NASAL SPRAY 16 GM (FLONASE) PRN (08:34)
[2016-04-01] MEDS: FERROUS SULFATE 325MG TAB PO SCH ×2 (08:34→21:16)
[2016-04-01] MEDS: MULTIVITAMINS/MINERALS THERAP 1 TAB PO SCH (08:34)
[2016-04-01] MEDS: POTASSIUM CHLORIDE 10 MEQ SR TABLET PO SCH ×2 (08:34→21:15)
[2016-04-01] MEDS: DOCUSATE SODIUM 100 MG CAP PO PRN (08:36)
[2016-04-01] MEDS: cefTRIAXone SOD 2 GM in D5W MINI-BAG PLUS 50 ML IV SCH (12:55)
[2016-04-01 14:00] VITALS: BP 102/59
[2016-04-01] MEDS: PERCOCET 5MG/325MG TAB PO PRN (15:11)
[2016-04-01 19:11] VITALS: O2SAT 91
[2016-04-01 22:00] VITALS: BP 117/64
[2016-04-02] MEDS: FUROSEMIDE 20 MG/2 ML VIAL (J1940) IV SCH ×4 (00:12→18:05)
[2016-04-02] MEDS: SLF 3 ML SYR IV SCH ×3 (05:24→21:04)
[2016-04-02 06:00] VITALS: BP 116/60
[2016-04-02 06:45] LABS: ANION GAP 7 MEQ/L (8-16); BLOOD UREA NITROGEN 17 MG/DL (7-18); CALCIUM LEVEL 8.1 MG/DL (8.8-10.2); CARBON DIOXIDE LEVEL 31 MEQ/L (21-32); CHLORIDE LEVEL 101 MEQ/L (98-107); GLOMERULAR FILTRATION RATE > 60.0 (>45); GLUCOSE, FASTING 125 MG/DL (80-110); SODIUM LEVEL 139 MEQ/L (136-145)
[2016-04-02] MEDS: IPRATROPIUM 0.5MG/ALBUTEROL 2.5MG INH SOL UD 3ML (DUONEB)(J7620) NEB SCH ×4 (07:07→19:13)
[2016-04-02] MEDS: TIOTROPIUM INHALER/CAPSULE (SPIRIVA) INH SCH (07:07)
[2016-04-02] MEDS: HumaLOG INSULIN (NovoLOG) PER UNIT SC SCH ×4 (08:08→20:59)
[2016-04-02] MEDS: DABIGATRAN ETEXILATE 75 MG CAP (PRADAXA) PO SCH ×2 (08:08→21:04)
[2016-04-02] MEDS: DOCUSATE SODIUM 100 MG CAP PO PRN ×2 (08:08→21:04)
[2016-04-02] MEDS: MOM 30ML SUSPENSION UDC PO PRN (08:08)
[2016-04-02] MEDS: MULTIVITAMINS/MINERALS THERAP 1 TAB PO SCH (08:09)
[2016-04-02] MEDS: ASPIRIN 81 MG ENTERIC TAB PO SCH (08:09)
[2016-04-02] MEDS: ATORVASTATIN 20 MG TAB PO SCH (08:09)
[2016-04-02] MEDS: ACETAMINOPHEN TAB 650MG DOSE (2X325MG) PO PRN ×2 (08:09→15:51)
[2016-04-02] MEDS: POTASSIUM CHLORIDE 10 MEQ SR TABLET PO SCH ×2 (08:10→21:04)
[2016-04-02] MEDS: ASCORBIC ACID 500 MG TAB PO SCH ×2 (08:10→18:05)
[2016-04-02] MEDS: FERROUS SULFATE 325MG TAB PO SCH ×2 (08:10→21:04)
[2016-04-02] MEDS: PANTOPRAZOLE 40MG TAB (PROTONIX) PO SCH (08:10)
[2016-04-02] MEDS: METOPROLOL TART 12.5 MG PER 1/2 TAB PO SCH ×2 (08:13→21:03)
[2016-04-02] MEDS: cefTRIAXone SOD 2 GM in D5W MINI-BAG PLUS 50 ML IV SCH (12:16)
[2016-04-02 12:20] VITALS: BP 118/62
--- NOTE | 2016-04-02 13:04 | IPN ---
DATE: 04/01/2016 The patient is seen and examined at the bedside. Chart has been reviewed. This morning, the patient still continues to complain of severe fatigue, dyspnea on exertion as she walks around the room, into the bathroom. She was afebrile. No cough. No chest pain, pressure or tightness. Chronic lower extremity edema despite adequate diuresis. The patient has been net negative balance for the past 5 days with improvement in weight from a peak weight of 168.5 kg to current weight of 163.9 kg. The patient's blood pressure is well maintained at 119 systolic, 113-124 systolic. No other issues per nursing. Temperature 98, pulse 94, respiratory rate 18, blood pressure 119/59, 96% on 4 liters nasal cannula. Generally, patient is awake, alert, oriented times three, answering questions appropriately. No respiratory distress, use of accessory muscles, able to complete full sentences. She has poor dentition with missing teeth. No jugular venous distention. Lungs are clear to auscultation. No wheezing, rales or rhonchi. Heart: S1, S2, regular. Abdomen is obese, soft, nontender, nondistended. Positive bowel sounds in all four quadrants. No hepatosplenomegaly, rebound or guarding. Extremities: Improved 2+ pitting edema. LABORATORY DATA: CBC, metabolic panel, imaging studies and microbiology have been reviewed. ASSESSMENT AND PLAN: This is a 66-year-old female with a history of chronic obstructive pulmonary disease (COPD), morbid obesity, congestive heart failure, grade 2 diastolic dysfunction, normal systolic function, with chronic hypoxic respiratory failure - on 3 liters of home oxygen, type 2 diabetes, dyslipidemia, hypertension, left pleural effusion, mild to moderate, being worked up for sleep apnea as an outpatient, presented with worsening shortness of breath, nonproductive cough with sputum, fevers, chills, admitted for acute on chronic hypoxic respiratory failure secondary to community-acquired pneumonia with chronic lower extremity edema. Current Issues: 1. Acute on chronic hypoxic respiratory failure secondary to pneumonia. Currently on IV antibiotics and supplemental oxygen. Currently at 4 liters, from a baseline of 3 liters. She is currently being diuresed with IV Lasix with net negative balance for the past 5 days. The patient is usually on 1-1/2 to 1.8 liters fluid restriction, follows with Dr. Choudhary as an outpatient. 2. Community-acquired pneumonia. The patient was initially treated with broad-spectrum antibiotics with vancomycin and Zosyn. Sputum cultures could not be obtained as the patient has had a dry cough. Blood culture showed Staphylococcus capitis with repeat blood cultures being negative. She has had no fever, chills and stable white count. Currently on IV ceftriaxone with some improvement. Still hypoxic, however; will continue on nebulizer treatment and her Spiriva for now. 3. Congestive heart failure, diastolic dysfunction. She appears to be more hypoxic. Most likely secondary to pneumonia but with persistent lower extremity edema. The patient appears to be euvolemic with no signs of pulmonary edema on chest x-ray or clinically as her lungs are clear. The patient has been changed to IV Lasix for better diuresis with holding parameters for systolic pressure less than 110. 4. Hypertension. Lisinopril and metoprolol have been discontinued due to blood pressure in the 90s and orthostasis. Currently does not appear to be dehydrated. We will continue Lasix diuresis. Once the patient is euvolemic, we may restart lower doses of her lisinopril and metoprolol. 5. Obstructive sleep apnea probable. Awaiting sleep study. Scheduled for next week. The patient may be discharged either on Sunday or Sunday. Will continue with Lasix diuresis over the weekend, and she will need to reschedule her sleep study exam for the following week. 6. History of coronary artery disease, status post two stents. We will resume low dose metoprolol and lisinopril once diuresis is discontinued and patient's hypoxia is improved. 7. History of ischemic bowel. Continue aspirin and Pradaxa.
--- NOTE | 2016-04-02 13:42 | REP ---
PORTABLE CHEST: Portable view of the chest is performed and compared to prior study of 03/28/2016. There is again cardiomegaly. Bibasilar atelectasis/infiltrate has slightly worsened on the right, but is unchanged on the left. Cardiomediastinal silhouette is unchanged. There is some degree of vascular congestion which is stable. IMPRESSION: Relatively stable exam as discussed in detail above. There does appear to be mild increase in atelectatic change in the right lung base. Signed by Darinel Rangel MD 04/02/2016 05:45 P
[2016-04-02 14:00] VITALS: BP 151/64
[2016-04-02 18:05] VITALS: BP 129/63
[2016-04-02] MEDS: FLUTICASONE PROP 0.05% NASAL SPRAY 16 GM (FLONASE) PRN (21:05)
[2016-04-03] MEDS: FUROSEMIDE 20 MG/2 ML VIAL (J1940) IV SCH ×4 (00:06→18:15)
[2016-04-03] MEDS: SLF 3 ML SYR IV SCH ×3 (05:06→21:54)
[2016-04-03] MEDS: ACETAMINOPHEN TAB 650MG DOSE (2X325MG) PO PRN (05:07)
--- NOTE | 2016-04-03 05:27 | IPN ---
DATE: 04/02/2016 Patient is seen and examined at the bedside. Chart has been reviewed. Patient complains of persistent shortness of breath and dizziness on exertion, which is unchanged by net negative diuresis. Repeat chest x-ray, 03/28/2016, shows no pneumothorax. Patient complained of severe back pain yesterday alleviated with some Tylenol. No other issues per nursing overnight. Vital signs: Temperature 97.4, pulse 94, respiratory rate 22, blood pressure 116/69, 92% on 4 liters nasal cannula. Generally, patient is awake, alert, oriented times three, answering questions appropriately, speaks in full sentences. No cyanosis. No use of accessory respiratory muscles. Has poor dentition with missing teeth. No jugular venous distention. Moist mucous membranes. Lungs are clear to auscultation. No wheezing, rales or rhonchi. Heart: S1, S2, irregular. Abdomen is soft, nontender, nondistended. Positive bowel sounds in all four quadrants. No hepatosplenomegaly, rebound or guarding. Extremities: 2+ pitting edema unchanged. LABORATORY DATA: CBC, metabolic panel, microbiology, imaging studies have been reviewed. ASSESSMENT AND PLAN: This is a 66-year-old female with a history of chronic obstructive pulmonary disease (COPD), congestive heart failure (CHF), grade 2 diastolic dysfunction with normal systolic function on chronic 3 liters of home oxygen with chronic hypoxic respiratory failure, type 2 diabetes, dyslipidemia, hypertension, left pleural effusion status post thoracentesis with 600 mL removed, being worked up for sleep apnea as outpatient, presented with worsening shortness of breath, nonproductive cough without sputum, fevers or chills. IMPRESSION: 1. Acute on chronic hypoxic respiratory failure. Baseline oxygen requirement is 3 liters nasal cannula, currently 4 liters. Currently being diuresed with IV Lasix and net negative balance for the past 6 days with 1.8 fluid restriction according to the patient per Dr. Choudhary. Patient's dry weight today 124 pounds. Currently still hypoxic, appears to be diuresing well and has been net negative for the past 6 days. Patient is currently nebulizer treatments. 2. Continue with diuresing treatment for pneumonia. Will evaluate. Will repeat chest x-ray and CT chest. Rule out pulmonary embolism. 3. Community-acquired pneumonia. Currently, patient was initially treated with broad-spectrum antibiotics with vancomycin and Zosyn. Sputum cultures could not be obtained as the patient has had a dry cough. Blood culture showed Staphylococcus capitis with repeat blood cultures being negative. No fever or chills. Stable white count. Currently on IV ceftriaxone with some improvement but still hypoxic. Nebulizer treatments and Spiriva are continued. 3. Congestive heart failure, diastolic dysfunction. Appears to be more hypoxic. Patient will have repeat chest x-ray today and CT chest. 4. Hypertension. Patient is currently receiving IV Lasix. Blood pressure is well maintained. 5. History of coronary artery disease, myocardial infarction ([place]) in the past, chronic. 6. 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
[2016-04-03 06:00] VITALS: BP 135/65
[2016-04-03 06:24] LABS: CALCIUM LEVEL 8.7 MG/DL (8.8-10.2); CREATININE FOR GFR 1.04 MG/DL (0.55-1.02); GLOMERULAR FILTRATION RATE 56.4 (>45); POTASSIUM SERUM 4.2 MEQ/L (3.5-5.1)
[2016-04-03] MEDS: IPRATROPIUM 0.5MG/ALBUTEROL 2.5MG INH SOL UD 3ML (DUONEB)(J7620) NEB SCH ×4 (07:34→19:52)
[2016-04-03] MEDS: TIOTROPIUM INHALER/CAPSULE (SPIRIVA) INH SCH (07:34)
[2016-04-03] MEDS ORDERED: ISOVUE-370 76% 100ML VIAL (Q9967) As Ordered ONE (07:41)
[2016-04-03] MEDS: HumaLOG INSULIN (NovoLOG) PER UNIT SC SCH ×4 (09:07→21:00)
[2016-04-03] MEDS: MULTIVITAMINS/MINERALS THERAP 1 TAB PO SCH (09:07)
[2016-04-03] MEDS: ASCORBIC ACID 500 MG TAB PO SCH ×2 (09:08→18:13)
[2016-04-03] MEDS: POTASSIUM CHLORIDE 10 MEQ SR TABLET PO SCH ×2 (09:08→21:52)
[2016-04-03] MEDS: ASPIRIN 81 MG ENTERIC TAB PO SCH (09:08)
[2016-04-03] MEDS: FERROUS SULFATE 325MG TAB PO SCH ×2 (09:08→21:52)
[2016-04-03] MEDS: PANTOPRAZOLE 40MG TAB (PROTONIX) PO SCH (09:08)
[2016-04-03] MEDS: ATORVASTATIN 20 MG TAB PO SCH (09:08)
[2016-04-03 09:11] VITALS: BP 132/70
[2016-04-03] MEDS: METOPROLOL TART 12.5 MG PER 1/2 TAB PO SCH ×2 (09:11→21:53)
[2016-04-03] MEDS: DABIGATRAN ETEXILATE 75 MG CAP (PRADAXA) PO SCH ×2 (10:24→21:53)
[2016-04-03] MEDS: DOCUSATE SODIUM 100 MG CAP PO PRN ×2 (10:27→21:52)
[2016-04-03] MEDS: cefTRIAXone SOD 2 GM in D5W MINI-BAG PLUS 50 ML IV SCH (12:36)
[2016-04-03] MEDS: LIDOCAINE 5% (LIDODERM) PATCH TD SCH (12:36)
[2016-04-03 12:37] VITALS: BP 138/74
[2016-04-03 14:00] VITALS: BP 116/61
--- NOTE | 2016-04-03 14:48 | IPN ---
DATE: 04/03/2016 Despite adequate diuresis and net negative balance for the past 6 days, patient continues to have persistent hypoxia with requirement of 4-5 liters of oxygen from baseline of 3 liters. She has been on intravenous antibiotics since admission and has remained afebrile with normal white count. Patient's anemia is unchanged. Hemoglobin is above 8 at 8.5 and hematocrit of 29. Current weight is 162.4 kg with a peak weight of 168.5 kg. Patient complains of thirst, dry lips, and dry mouth. She also complains of severe pain in the back which is usually alleviated by 1 gram of Tylenol 2-3 times daily. Temperature 97.4, pulse 99, respiratory rate 22, blood pressure 132/70, 91% on 4 liters nasal cannula. Input and output overnight: Input of 1270, output of 2400, negative 1130. Current weight is 162.4 kg with a peak weight of 168.5 kg during this admission. Admission weight of 148.32 kg. Generally, patient is awake, alert, oriented times three, answering questions appropriately. Speaks in full sentences. No cyanosis. No use of respiratory or accessory muscles. Poor dentition with missing teeth. No jugular venous distention. Dry mucous membranes and cracked lips. Lungs are clear to auscultation. No wheezing, rales, or rhonchi. Heart S1, S2, irregular. Abdomen is soft, nontender, nondistended. Positive bowel sounds in all four quadrants. No hepatosplenomegaly, rebound, or guarding. Extremities 2+ pitting edema. LABORATORY DATA: CBC, metabolic panel, microbiology, and imaging studies have been reviewed. CT chest has no report at the moment. ASSESSMENT AND PLAN: This is a 66-year-old female with history of chronic obstructive pulmonary disease (COPD), congestive heart failure (CHF) grade 2 diastolic dysfunction with normal systolic function, on chronic 3 liters of oxygen at home with chronic hypoxic respiratory failure, type 2 diabetes, dyslipidemia, chronic back pain, hypertension, left pleural effusion status post thoracentesis with 600 mL removed, being worked up for sleep apnea as outpatient with an appointment on , presents with worsening shortness of breath, nonproductive cough without sputum, fever, or chills. IMPRESSION: 1. Acute on chronic hypoxic respiratory failure. Baseline oxygen requirement is 3 liters nasal cannula, currently on 4-5 liters. She is being treated for multifactorial etiology including community-acquired pneumonia with intravenous (IV) antibiotics. Net negative balance and Lasix with improvement. Dry weight is 324 [address] a [address] chest to rule out other etiology. Patient has been on nebulizer treatments with clear lungs. No signs of chronic obstructive pulmonary disease (COPD) exacerbation. Patient takes Pradaxa for ischemic bowel , unlikely to have pulmonary embolus or deep venous thrombosis (DVT). 2. Community-acquired pneumonia. Patient was initially on vancomycin and Zosyn. Sputum cultures could not be obtained as the patient has had a dry cough. Blood culture showed Staphylococcus capitis. Repeat blood cultures are negative. No fever or chills, stable white count. Currently on intravenous (IV) ceftriaxone. Still hypoxic on nebulizer treatment, Spiriva. Patient may resume her home Breo Ellipta. 3. Morbid obesity. Needs outpatient workup for obstructive sleep apnea but may need to reschedule due to appointment being on . 4. Hypertension. Currently on intravenous (IV) Lasix. Blood pressure is controlled. 5. Congestive heart failure (CHF) diastolic dysfunction. Appears to be hypoxic but no edema. Appears to be compensated. 6. History of coronary artery disease (CAD) myocardial infarction (CA) in the past, chronic. 7. 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 DISPOSITION: Patient has not passed a home safety evaluation, therefore we will continue with intravenous (IV) medications for now to optimize. MTDD
[2016-04-03] MEDS: MOM 30ML SUSPENSION UDC PO PRN ×2 (16:31→21:52)
[2016-04-03] MEDS: MIRALAX *UNIT DOSE* 17GM PACKET PO PRN (18:14)
[2016-04-03] MEDS: ACETAMINOPHEN 500 MG TAB PO PRN (18:14)
[2016-04-03 18:19] VITALS: BP 145/65
[2016-04-03] MEDS ORDERED: NON-FORMULARY 1 EA EA INH SCH (21:00)
[2016-04-03] MEDS: **NOTE PATIENT COMMENT** MISC XX SCH (21:53)
[2016-04-03 22:00] VITALS: BP 152/58
[2016-04-04] MEDS: FUROSEMIDE 20 MG/2 ML VIAL (J1940) IV SCH ×5 (00:24→23:56)
[2016-04-04] MEDS: SLF 3 ML SYR IV SCH ×3 (05:36→21:57)
[2016-04-04 06:00] VITALS: BP 133/65
[2016-04-04 07:10] LABS: CALCIUM LEVEL 8.7 MG/DL (8.8-10.2); CREATININE FOR GFR 1.02 MG/DL (0.55-1.02); GLOMERULAR FILTRATION RATE 57.7 (>45); POTASSIUM SERUM 4.9 MEQ/L (3.5-5.1)
[2016-04-04] MEDS: BREO ELLIPTA INH SCH (07:10)
[2016-04-04] MEDS: IPRATROPIUM 0.5MG/ALBUTEROL 2.5MG INH SOL UD 3ML (DUONEB)(J7620) NEB SCH ×4 (07:13→19:16)
[2016-04-04] MEDS: HumaLOG INSULIN (NovoLOG) PER UNIT SC SCH ×4 (09:16→21:00)
[2016-04-04] MEDS: FERROUS SULFATE 325MG TAB PO SCH ×2 (09:17→21:56)
[2016-04-04] MEDS: DOCUSATE SODIUM 100 MG CAP PO PRN (09:17)
[2016-04-04] MEDS: ASCORBIC ACID 500 MG TAB PO SCH ×2 (09:17→17:51)
[2016-04-04] MEDS: DABIGATRAN ETEXILATE 75 MG CAP (PRADAXA) PO SCH ×2 (09:17→21:57)
[2016-04-04] MEDS: MOM 30ML SUSPENSION UDC PO PRN (09:17)
[2016-04-04] MEDS: ATORVASTATIN 20 MG TAB PO SCH (09:17)
[2016-04-04] MEDS: POTASSIUM CHLORIDE 10 MEQ SR TABLET PO SCH ×2 (09:18→21:56)
[2016-04-04] MEDS: MULTIVITAMINS/MINERALS THERAP 1 TAB PO SCH (09:18)
[2016-04-04] MEDS: ASPIRIN 81 MG ENTERIC TAB PO SCH (09:18)
[2016-04-04] MEDS: PANTOPRAZOLE 40MG TAB (PROTONIX) PO SCH (09:18)
[2016-04-04] MEDS: METOPROLOL TART 12.5 MG PER 1/2 TAB PO SCH ×2 (09:19→21:56)
[2016-04-04] MEDS: LIDOCAINE 5% (LIDODERM) PATCH TD SCH (09:19)
--- NOTE | 2016-04-04 10:03 | REP ---
CT CHEST WITH IV CONTRAST, 04/03/2016: Indication: Hypoxia. Comparison: CT chest without contrast 03/24/2016. TECHNIQUE: Following IV contrast administration of 75 ml Isovue 370 mg/ml, 3 mm contiguous spiral axial sections were performed through the chest. Findings: The thoracic aorta is ectatic yet without aneurysm or dissection. Cardiac silhouette is moderately enlarged with enlargement of the right atrium and the inferior vena cava. There are moderate coronary artery calcifications. Scattered sub cm mediastinal and hilar nodes as well as enlarged 14 mm right paratracheal node were noted. There is also a 17 mm carinal node. There is a small posterior layering left pleural effusion mildly improved from prior study. There is plate-like atelectasis and/or scarring in the left upper lobe, lingula and also in the right upper lobe and right middle lobe. There is right basilar atelectasis as well. Visualized portions of the liver demonstrate scalloped margins as can be seen with cirrhosis. There is a small amount of ascites within the abdomen which is decreased/improved when compared with prior study. The gallbladder is mildly distended and contains few stones, measuring up to 2.3 cm diameter. There is thickening of the bilateral adrenal glands. Impression: Moderate cardiomegaly with findings suggestive of right heart failure with enlargement of the right atrium and the inferior vena cava. Mediastinal and hilar adenopathy, some nodes of which are enlarged. Small left pleural effusion minimally improved/decreased in size. Scattered areas of atelectatic changes and/or fibrolinear scarring bilaterally. Cirrhosis, small amount of abdominal ascites. Generous sized gallbladder with cholelithiasis, incompletely included in view. Signed by Annette Mendez MD 04/09/2016 02:14 P
[2016-04-04] MEDS: FLUTICASONE PROP 0.05% NASAL SPRAY 16 GM (FLONASE) PRN (10:37)
[2016-04-04] MEDS: ONDANSETRON 4MG/2ML VIAL (J2405) IV PRN (11:17)
[2016-04-04] MEDS: TIOTROPIUM INHALER/CAPSULE (SPIRIVA) INH SCH (11:23)
--- NOTE | 2016-04-04 11:25 | IPNPDOC ---
Assessment/Plan Date Seen The patient was seen on 04/04/16. Problems Problems: (1) Acute and chronic respiratory failure with hypoxia Status: Acute Problem Text: multifactorial due to CAP and diastolic chf exacerbation and fluid slowly improving with diuresis and antibiotics. (2) CAP (community acquired pneumonia) Status: Acute Problem Text: continue antibiotic ceftriaxone. (3) Acute on chronic diastolic CHF (congestive heart failure) Status: Acute Problem Text: continue diuresis , daily weights. (4) Constipation Status: Acute Problem Text: on bowel regimen (5) JANE (obstructive sleep apnea) Status: Chronic (6) Morbid obesity Status: Chronic (7) Diabetes Status: Chronic (8) Hypertension Status: Chronic (9) COPD (chronic obstructive pulmonary disease) Status: Chronic Problem Text: continue home meds. (10) CAD (coronary artery disease) Status: Chronic (11) Hyperlipidemia Status: Chronic (12) Mitral stenosis and incompetence Status: Chronic (13) Pulmonary hypertension Status: Chronic (14) Afib Status: Chronic Problem Text: on pradaxa Plan / VTE VTE Prophylaxis Ordered?: Yes Subjective CC/HPI The patient is a 66-year-old female admitted with a reason for visit of Acute Respiratory Distress. Events since last encounter continues to be SOb requiring more than baseline of oxygen, had severe constipation yesterday had to be disimpacted, had some bowel movements after that , no fever or chills no chest pain, no abdominal pain , nausea or vomiting. Objective General Exam: : Alert: No Acute Distress Eye Exam: : Conjunctiva & lids normal: EOMI: PERRLANo: Sclera icteric ENT Exam: : Atraumatic: Mucous membr. moist/pink: Pharynx Normal Neck Exam: : SuppleNo: JVD, thyromegaly Chest Exam: : Diminished Heart Exam: : Normal S1: Normal S2: Rate Normal: Regular Rhythm Abdomen Exam: : Normal bowel sounds: SoftNo: Hepatospenomegaly, Tenderness Extremity Exam: : Edema Vital Signs I&O Vital Sign - Last 24 Hours 04/03/16 04/03/16 04/03/16 04/03/16 12:37 14:00 18:19 19:53 Temp 96.3 Pulse 104 98 101 Resp 22 B/P 138/74 116/61 145/65 Pulse Ox 93 O2 Delivery Nasal Cannula Nasal Cannula O2 Flow Rate 4.0 5.0 04/03/16 04/03/16 04/04/16 04/04/16 21:00 22:00 06:00 09:19 Temp 98.3 96.9 Pulse 105 96 96 Resp 19 17 B/P 152/58 133/65 133/65 Pulse Ox 89 O2 Delivery Nasal Cannula O2 Flow Rate 4.0 04/04/16 10:27 O2 Delivery Nasal Cannula O2 Flow Rate 4.0 I&O- Last 24 Hours up to 6 AM 04/04/16 05:59 Intake Total 1370 ml Output Total 2150 ml Balance -780 ml Laboratory Data Labs 24H Laboratory Tests 2 04/03/16 11:51: Bedside Glucose (Misc Panel) 118H 04/03/16 17:12: Bedside Glucose (Misc Panel) 156H 04/04/16 06:19: Anion Gap 8, Blood Urea Nitrogen 18, Creatinine 1.02, Sodium Level 139, Potassium Level 4.9, Chloride Level 100, Carbon Dioxide Level 31, Calcium Level 8.7L, Glomerular Filtration Rate 57.7 CBC/BMP Laboratory Tests 04/04/16 06:19 Calcium Level 8.7 L FSBS Laboratory Tests Test 04/03/16 11:51 04/03/16 17:12 Range/Units Bedside Glucose (Misc Panel) 118 156 80-115 MG/DL Medications Medications Current Medications Medications (Trade) Dose Ordered Sig/Demario Route PRN Reason Start Time Stop Time Status Last Admin Dose Admin Acetaminophen (Tylenol) 650 mg Q4HP PRN PO MILD PAIN OR FEVER 03/24/16 16:45 03/26/16 09:27 DC 03/25/16 22:32 Acetaminophen (Tylenol) 650 mg Q6HP PRN PO MILD PAIN OR FEVER 03/26/16 09:30 04/03/16 11:26 DC 04/03/16 05:07 Acetaminophen (Tylenol) 1,000 mg Q6HP PRN PO PAIN / FEVER 04/03/16 11:30 05/03/16 11:29 04/03/16 18:14 Albuterol Sulfate (Proventil Neb) 2.5 mg Q4HP PRN NEB SOB/WHEEZING 03/24/16 17:00 03/25/16 11:45 DC Albuterol Sulfate (Proventil Neb) 2.5 mg RQ4H NEB 03/28/16 12:00 03/31/16 07:01 DC 03/31/16 03:44 Albuterol Sulfate (Proventil, Ventolin Hfa) 2 puff Q4H PRN INH SHORTNESS OF BREATH 03/24/16 17:00 03/24/16 17:06 DC Albuterol/ Ipratropium (Duoneb (Ipr 0.5mg/Alb 2.5mg)) 3 ml Q2HP PRN NEB SOB/WHEEZING 03/25/16 11:45 03/28/16 10:54 DC 03/28/16 07:06 Albuterol/ Ipratropium (Duoneb (Ipr 0.5mg/Alb 2.5mg)) 3 ml Q2HP PRN NEB SOB/WHEEZING 03/31/16 07:00 04/30/16 06:59 Albuterol/ Ipratropium (Duoneb (Ipr 0.5mg/Alb 2.5mg)) 3 ml RQID NEB 03/31/16 08:00 04/30/16 07:59 04/04/16 07:13 Albuterol/ Ipratropium (Duoneb (Ipr 0.5mg/Alb 2.5mg)) 9 ml STK-MED ONCE As Ordered 03/24/16 13:22 03/24/16 13:23 DC Ascorbic Acid (Vitamin C) 500 mg BIDWM PO 03/30/16 08:00 04/29/16 07:59 04/04/16 09:17 Aspirin (Ecotrin) 81 mg DAILY PO 03/25/16 09:00 04/24/16 08:59 04/04/16 09:18 Atorvastatin Calcium (Lipitor) 40 mg DAILY PO 03/25/16 09:00 04/24/16 08:59 04/04/16 09:17 Bisacodyl (Dulcolax) 10 mg Q12HP PRN [place] CONSTIPATION 03/31/16 07:45 04/30/16 07:44 Ceftriaxone Sodium 2 gm 2 gm STK-MED ONCE As Ordered 03/24/16 15:28 03/24/16 15:29 DC Ceftriaxone Sodium/Dextrose (Rocephin/ Dextrose 5% Mini-Bag Plus) 50 ml @ 100 mls/hr Q24H IV 03/28/16 12:00 04/10/16 11:59 04/03/16 12:36 Dabigatran (Pradaxa) 150 mg BID PO 03/24/16 21:00 03/26/16 14:02 DC 03/26/16 10:06 Dabigatran (Pradaxa) 150 mg BID PO 03/27/16 09:00 04/10/16 08:59 04/04/16 09:17 Dextrose (Dextrose 50%) 25 ml ASDIRECTED PRN IV SEE LABEL COMMENTS 03/24/16 17:45 04/23/16 17:44 Docusate Sodium (Colace) 100 mg BIDP PRN PO CONSTIPATION 03/26/16 09:30 04/25/16 09:29 04/04/16 09:17 Ferrous Sulfate (Ferrous Sulfate) 325 mg BID PO 03/26/16 09:00 04/25/16 08:59 04/04/16 09:17 Fluticasone Propionate (Flonase 0.05% Nasal [place]) 2 spray DAILY PRN NA CONGESTION 03/24/16 17:00 04/23/16 16:59 04/04/16 10:37 Furosemide (Lasix) 20 mg Q6H IV 03/29/16 18:00 04/28/16 17:59 04/04/16 05:36 Furosemide (Lasix) 40 mg DAILY@17 PO 03/27/16 17:00 03/29/16 16:25 DC 03/28/16 15:59 Furosemide (Lasix) 40 mg ONCE ONCE PO 03/27/16 11:45 03/27/16 11:46 DC 03/27/16 12:47 Furosemide (Lasix) 80 mg DAILY PO 03/28/16 09:00 03/29/16 16:25 DC 03/29/16 08:13 Glucagon 1 mg 1 mg ASDIRECTED PRN SC SEE LABEL COMMENTS 03/24/16 17:45 04/23/16 17:44 Glucose (Glucose) 16 GM ASDIRECTED PRN PO SEE LABEL COMMENTS 03/24/16 17:45 04/23/16 17:44 Guaifenesin (Mucinex) 600 mg BID PRN PO CHEST CONGESTION 03/24/16 17:00 04/23/16 16:59 Home Med (Med Rec Complete!) ASDIRECTED XX 03/24/16 15:15 03/24/16 15:15 DC Influenza Virus Vaccine (Fluzone High Dose) 0.5 ml ONCE ONCE IM 03/26/16 09:00 03/26/16 09:01 DC 03/26/16 10:11 Insulin Human Lispro (HumaLOG INSULIN) SEE PROTOCOL TABLE AC SC 03/25/16 07:30 04/24/16 07:29 04/04/16 09:16 Insulin Human Lispro (HumaLOG INSULIN) SEE PROTOCOL TABLE QHS SC 03/24/16 21:00 04/23/16 20:59 Iopamidol (Isovue-370 76%) 100 ml STK-MED ONCE As Ordered 04/03/16 07:41 04/03/16 07:42 DC Lidocaine (Lidoderm Patch) 3 patch DAILY TD 04/03/16 09:00 05/03/16 08:59 04/04/16 09:19 Lisinopril (Prinivil) 2.5 mg DAILY PO 03/25/16 09:00 03/25/16 09:00 DC Lisinopril 2.5 mg 2.5 mg DAILY PO 03/27/16 09:00 03/28/16 11:06 DC 03/28/16 08:33 Loratadine (Claritin) 10 mg DAILY PRN PO ALLERGIES 03/24/16 17:00 04/23/16 16:59 03/25/16 18:15 Magnesium Hydroxide (Milk Of Magnesia) 30 ml Q4HP PRN PO CONSTIPATION 03/31/16 07:45 04/30/16 07:44 04/04/16 09:17 Magnesium Sulfate/ Dextrose/IV Miscellaneous Supplies (Mag Sulf 1gm/ 100ml (Mag Run)) 100 ml @ 100 mls/hr ONCE ONCE IV 03/25/16 02:00 03/25/16 02:59 DC 03/25/16 02:05 Methylprednisolone (SOLUmedrol) 125 mg STK-MED ONCE As Ordered 03/24/16 13:18 03/24/16 13:19 DC Metoprolol Tartrate (Lopressor) 12.5 mg BID PO 03/25/16 21:00 03/27/16 16:55 DC 03/27/16 09:59 Metoprolol Tartrate (Lopressor) 12.5 mg BID PO 03/30/16 09:00 04/29/16 08:59 04/04/16 09:19 Metoprolol Tartrate (Lopressor) 25 mg BID PO 03/24/16 21:00 03/25/16 11:51 DC Metoprolol Tartrate 25 mg 25 mg BID PO 03/27/16 21:00 03/28/16 11:06 DC Miscellaneous (Unresolved Patient Own Med Order) SEE LABEL COMMENTS UNRESOLVED XX 04/03/16 00:01 04/03/16 20:41 DC 04/03/16 18:33 Multivitamins (Theragram-M) 1 tab DAILY PO 03/25/16 09:00 04/24/16 08:59 04/04/16 09:18 Non-Formulary Medication breo-ellipta pls resume home d... BID INH 04/03/16 21:00 04/03/16 21:00 DC Non-Formulary Medication ( See Comment Field Below ) REMOVE LIDODERM PATCHES DAILY@21 XX 04/03/16 21:00 05/03/16 20:59 04/03/16 21:53 Ondansetron HCl (Zofran) 4 mg Q6HP PRN IV NAUSEA OR VOMITING 03/24/16 16:45 04/23/16 16:44 04/04/16 11:17 Ondansetron HCl (Zofran) 4 mg STK-MED ONCE As Ordered 03/24/16 15:07 03/24/16 15:08 DC Oxycodone/ Acetaminophen (Percocet 5mg/ 325mg Tablet) 1 tab Q4HP PRN PO MODERATE PAIN (PS 5-7) 03/24/16 16:45 04/07/16 16:44 04/01/16 15:11 Pantoprazole Sodium (Protonix) 40 mg DAILY PO 03/25/16 09:00 04/24/16 08:59 04/04/16 09:18 Patient Own Medication (Patient'S Own Med) Breo-ellipta 200/25: ONE PUFF... DAILY INH 04/04/16 09:00 05/04/16 08:59 04/04/16 07:10 Piperacillin Sod/ Tazobactam Sod 3.375 gm/Dextrose 50 ml @ 50 mls/hr Q8H IV 03/24/16 17:00 03/24/16 17:00 DC Piperacillin Sod/ Tazobactam Sod/ Dextrose (Zosyn/Dextrose 5% Mini-Bag Plus) 50 ml @ 50 mls/hr Q8H IV 03/24/16 20:00 03/28/16 10:07 DC 03/28/16 03:22 Polyethylene Glycol (Miralax) 1 pkt DAILYPRN PRN PO CONSTIPATION 03/31/16 07:45 04/30/16 07:44 04/03/16 18:14 Potassium Chloride (Micro-K Extencaps) 10 meq BID PO 03/24/16 21:00 04/01/16 06:58 DC 03/31/16 21:17 Potassium Chloride (Micro-K Extencaps) 20 meq BID PO 04/01/16 09:00 05/01/16 08:59 04/04/16 09:18 Sodium Biphosphate/ Sodium Phosphate (Fleet Enema) 1 ENEMA Q12HP PRN [place] CONSTIPATION 03/31/16 07:45 04/30/16 07:44 Sodium Chloride (Nacl 0.9%) 1,000 ml @ 40 mls/hr Q24H IV 03/24/16 16:43 03/26/16 09:26 DC 03/25/16 12:16 Sodium Chloride (Saline Lock Flush) 2 ml ASDIRECTED PRN IV SEE LABEL COMMENTS 03/27/16 05:15 04/26/16 05:14 Sodium Chloride (Saline Lock Flush) 2 ml SLF IV 03/27/16 06:00 04/26/16 05:59 04/04/16 05:36 Tiotropium [place] 1 inhalation 1 inhalation DAILY@08 INH 03/25/16 08:00 04/24/16 07:59 04/03/16 07:34 Vancomycin HCl 1000 mg/IV Miscellaneous Supplies 1 each/ Dextrose 270 ml @ 270 mls/hr Q8H IV 03/24/16 17:00 03/24/16 17:00 DC Vancomycin HCl 1000 mg/IV Miscellaneous Supplies 1 each/ Dextrose 270 ml @ 270 mls/hr Q8H IV 03/24/16 21:00 03/27/16 13:22 DC 03/27/16 06:02 Vancomycin HCl/IV Miscellaneous Supplies/Dextrose (Vancomycin HCl/ Adapter-Vial Mate/ Dextrose 5%) 270 ml @ 135 mls/hr Q8H IV 03/27/16 13:00 03/28/16 10:07 DC 03/28/16 04:43 Allergies Coded Allergies: Sulfa Drugs (Verified Allergy, Unknown, 08/02/12) Sulfa Drugs Cross Reactors (Verified Allergy, Unknown, 08/02/12) Heparin (Verified Adverse Reaction, Intermediate, HIT, 10/07/15) ROMEO LUNDBERG MD Apr 04, 2016 11:25
[2016-04-04] MEDS: cefTRIAXone SOD 2 GM in D5W MINI-BAG PLUS 50 ML IV SCH (12:41)
[2016-04-04] MEDS: ACETAMINOPHEN 500 MG TAB PO PRN ×2 (12:44→23:57)
[2016-04-04 14:00] VITALS: BP 133/69
[2016-04-04 19:16] VITALS: O2SAT 88
[2016-04-04] MEDS: **NOTE PATIENT COMMENT** MISC XX SCH (21:00)
[2016-04-04 22:00] VITALS: BP 111/64
[2016-04-04 23:45] VITALS: BP 135/67
[2016-04-05 06:00] VITALS: BP 126/55
[2016-04-05] MEDS: FUROSEMIDE 20 MG/2 ML VIAL (J1940) IV SCH (06:06)
[2016-04-05] MEDS: SLF 3 ML SYR IV SCH ×3 (06:06→20:42)
[2016-04-05 06:44] LABS: CALCIUM LEVEL 8.6 MG/DL (8.8-10.2); CREATININE FOR GFR 1.12 MG/DL (0.55-1.02); GLOMERULAR FILTRATION RATE 51.8 (>45); POTASSIUM SERUM 4.7 MEQ/L (3.5-5.1)
[2016-04-05] MEDS: BREO ELLIPTA INH SCH (07:48)
[2016-04-05] MEDS: TIOTROPIUM INHALER/CAPSULE (SPIRIVA) INH SCH (07:48)
[2016-04-05] MEDS: IPRATROPIUM 0.5MG/ALBUTEROL 2.5MG INH SOL UD 3ML (DUONEB)(J7620) NEB SCH ×4 (07:49→20:16)
[2016-04-05 08:43] LABS: BASO % 0.2 % (0.0-1.0); EOS # 0.2 K/mm3 (0.0-0.50); EOS % 1.8 % (0.0-3.0); LARGE UNSTAINED CELL # 0.2 K/mm3 (0.0-0.4); LARGE UNSTAINED CELL % 1.6 % (0.0-4.0); LYMPH # 0.9 K/mm3 (1.5-4.5); LYMPH % 7.2 % (24.0-44.0); MEAN CORPUSCULAR HEMOGLOBIN 26.4 pg (27.0-33.0); MEAN CORPUSCULAR HGB CONC 28.3 g/dl (32.0-36.5); MEAN CORPUSCULAR VOLUME 93.2 fl (80.0-96.0); MONO # 0.6 K/mm3 (0.0-0.8); MONO % 6.5 % (0.0-5.0); NEUTROPHILS # 7.9 K/mm3 (1.8-7.7); NEUTROPHILS % 82.6 % (36.0-66.0); PLATELET COUNT, AUTOMATED 174 k/mm3 (150-450); RED CELL DISTRIBUTION WIDTH 23.5 % (11.5-14.5); WHITE BLOOD COUNT 9.6 K/mm3 (4.0-10.0)
[2016-04-05 08:49] LABS: ADD MORPHOLOGY? YES
[2016-04-05] MEDS: MULTIVITAMINS/MINERALS THERAP 1 TAB PO SCH (09:05)
[2016-04-05] MEDS: ASCORBIC ACID 500 MG TAB PO SCH ×2 (09:05→17:53)
[2016-04-05] MEDS: DABIGATRAN ETEXILATE 75 MG CAP (PRADAXA) PO SCH ×2 (09:05→20:41)
[2016-04-05] MEDS: PANTOPRAZOLE 40MG TAB (PROTONIX) PO SCH (09:05)
[2016-04-05] MEDS: ASPIRIN 81 MG ENTERIC TAB PO SCH (09:05)
[2016-04-05] MEDS: ATORVASTATIN 20 MG TAB PO SCH (09:05)
[2016-04-05] MEDS: HumaLOG INSULIN (NovoLOG) PER UNIT SC SCH ×4 (09:05→20:41)
[2016-04-05] MEDS: POTASSIUM CHLORIDE 10 MEQ SR TABLET PO SCH ×2 (09:06→20:42)
[2016-04-05] MEDS: LIDOCAINE 5% (LIDODERM) PATCH TD SCH (09:06)
[2016-04-05] MEDS: FERROUS SULFATE 325MG TAB PO SCH ×2 (09:06→20:41)
[2016-04-05] MEDS: METOPROLOL TART 12.5 MG PER 1/2 TAB PO SCH ×2 (09:07→20:51)
[2016-04-05 09:15] LABS: ANISOCYTOSIS 2+
--- NOTE | 2016-04-05 11:29 | IPNPDOC ---
Assessment/Plan Date Seen The patient was seen on 04/05/16. Problems Problems: (1) Acute and chronic respiratory failure with hypoxia Status: Acute Problem Text: multifactorial due to CAP and diastolic chf exacerbation and fluid slowly improving with diuresis and antibiotics. (2) CAP (community acquired pneumonia) Status: Acute Problem Text: continue antibiotic ceftriaxone. (3) Acute on chronic diastolic CHF (congestive heart failure) Status: Acute Problem Text: continue diuresis , daily weights. will start lasix infusion (4) Constipation Status: Acute Problem Text: on bowel regimen (5) JANE (obstructive sleep apnea) Status: Chronic (6) Morbid obesity Status: Chronic (7) Diabetes Status: Chronic (8) Hypertension Status: Chronic (9) COPD (chronic obstructive pulmonary disease) Status: Chronic Problem Text: continue home meds. (10) CAD (coronary artery disease) Status: Chronic (11) Hyperlipidemia Status: Chronic (12) Mitral stenosis and incompetence Status: Chronic (13) Pulmonary hypertension Status: Chronic (14) Afib Status: Chronic Problem Text: on pradaxa Plan / VTE VTE Prophylaxis Ordered?: Yes Subjective CC/HPI The patient is a 66-year-old female admitted with a reason for visit of Acute Respiratory Distress. Events since last encounter no new complaints today. Objective General Exam: : Alert: No Acute Distress Eye Exam: : Conjunctiva & lids normal: EOMI: PERRLANo: Sclera icteric ENT Exam: : Atraumatic: Mucous membr. moist/pink: Pharynx Normal Neck Exam: : SuppleNo: JVD, thyromegaly Chest Exam: : Diminished Heart Exam: : Normal S1: Normal S2: Rate Normal: Regular Rhythm Abdomen Exam: : Normal bowel sounds: SoftNo: Hepatospenomegaly, Tenderness Extremity Exam: : Edema Vital Signs I&O Vital Sign - Last 24 Hours 04/04/16 04/04/16 04/04/16 04/04/16 09:19 10:27 14:00 19:16 Temp 97.8 Pulse 96 87 Resp 20 B/P 133/65 133/69 Pulse Ox 88 88 O2 Delivery Nasal Cannula Nasal Cannula Nasal Cannula O2 Flow Rate 4.0 4.0 4.0 04/04/16 04/04/16 04/04/16 04/04/16 21:56 22:00 22:00 23:45 Temp 98.2 Pulse 102 102 88 Resp 20 B/P 111/64 111/64 135/67 Pulse Ox 91 O2 Delivery Nasal Cannula Nasal Cannula O2 Flow Rate 4.0 4.0 04/05/16 06:00 Temp 97.5 Pulse 90 Resp 19 B/P 126/55 Pulse Ox 93 O2 Delivery Nasal Cannula O2 Flow Rate 4.0 I&O- Last 24 Hours up to 6 AM 04/05/16 06:00 Intake Total 1490 ml Output Total 1200 ml Balance 290 ml Laboratory Data Labs 24H Laboratory Tests 2 04/04/16 11:41: Bedside Glucose (Misc Panel) 128H 04/04/16 16:55: Bedside Glucose (Misc Panel) 130H 04/04/16 20:17: Bedside Glucose (Misc Panel) 187H 04/05/16 05:42: Anion Gap 6L, Blood Urea Nitrogen 21H, Creatinine 1.12H, Sodium Level 139, Potassium Level 4.7, Chloride Level 101, Carbon Dioxide Level 32, Calcium Level 8.6L, Glomerular Filtration Rate 51.8 CBC/BMP Laboratory Tests 04/05/16 05:42 Calcium Level 8.6 L FSBS Laboratory Tests Test 04/04/16 11:41 04/04/16 16:55 04/04/16 20:17 Range/Units Bedside Glucose (Misc Panel) 128 130 187 80-115 MG/DL Medications Medications Current Medications Medications (Trade) Dose Ordered Sig/Demario Route PRN Reason Start Time Stop Time Status Last Admin Dose Admin Acetaminophen (Tylenol) 650 mg Q4HP PRN PO MILD PAIN OR FEVER 03/24/16 16:45 03/26/16 09:27 DC 03/25/16 22:32 Acetaminophen (Tylenol) 650 mg Q6HP PRN PO MILD PAIN OR FEVER 03/26/16 09:30 04/03/16 11:26 DC 04/03/16 05:07 Acetaminophen (Tylenol) 1,000 mg Q6HP PRN PO PAIN / FEVER 04/03/16 11:30 05/03/16 11:29 04/04/16 23:57 Albuterol Sulfate (Proventil Neb) 2.5 mg Q4HP PRN NEB SOB/WHEEZING 03/24/16 17:00 03/25/16 11:45 DC Albuterol Sulfate (Proventil Neb) 2.5 mg RQ4H NEB 03/28/16 12:00 12/16 07:01 DC 03/31/16 03:44 Albuterol Sulfate (Proventil, Ventolin Hfa) 2 puff Q4H PRN INH SHORTNESS OF BREATH 03/24/16 17:00 03/24/16 17:06 DC Albuterol/ Ipratropium (Duoneb (Ipr 0.5mg/Alb 2.5mg)) 3 ml Q2HP PRN NEB SOB/WHEEZING 03/25/16 11:45 03/28/16 10:54 DC 03/28/16 07:06 Albuterol/ Ipratropium (Duoneb (Ipr 0.5mg/Alb 2.5mg)) 3 ml Q2HP PRN NEB SOB/WHEEZING 03/31/16 07:00 04/30/16 06:59 Albuterol/ Ipratropium (Duoneb (Ipr 0.5mg/Alb 2.5mg)) 3 ml RQID NEB 03/31/16 08:00 04/30/16 07:59 04/04/16 19:16 Albuterol/ Ipratropium (Duoneb (Ipr 0.5mg/Alb 2.5mg)) 9 ml STK-MED ONCE As Ordered 03/24/16 13:22 03/24/16 13:23 DC Ascorbic Acid (Vitamin C) 500 mg BIDWM PO 03/30/16 08:00 04/29/16 07:59 04/04/16 17:51 Aspirin (Ecotrin) 81 mg DAILY PO 03/25/16 09:00 04/24/16 08:59 04/04/16 09:18 Atorvastatin Calcium (Lipitor) 40 mg DAILY PO 03/25/16 09:00 04/24/16 08:59 04/04/16 09:17 Bisacodyl (Dulcolax) 10 mg Q12HP PRN RI CONSTIPATION 03/31/16 07:45 04/30/16 07:44 Ceftriaxone Sodium 2 gm 2 gm STK-MED ONCE As Ordered 03/24/16 15:28 03/24/16 15:29 DC Ceftriaxone Sodium/Dextrose (Rocephin/ Dextrose 5% Mini-Bag Plus) 50 ml @ 100 mls/hr Q24H IV 03/28/16 12:00 04/10/16 11:59 04/04/16 12:41 Dabigatran (Pradaxa) 150 mg BID PO 03/24/16 21:00 03/26/16 14:02 DC 03/26/16 10:06 Dabigatran (Pradaxa) 150 mg BID PO 03/27/16 09:00 04/10/16 08:59 04/04/16 21:57 Dextrose (Dextrose 50%) 25 ml ASDIRECTED PRN IV SEE LABEL COMMENTS 03/24/16 17:45 04/23/16 17:44 Docusate Sodium (Colace) 100 mg BIDP PRN PO CONSTIPATION 03/26/16 09:30 04/25/16 09:29 04/04/16 09:17 Ferrous Sulfate (Ferrous Sulfate) 325 mg BID PO 03/26/16 09:00 04/25/16 08:59 04/04/16 21:56 Fluticasone Propionate (Flonase 0.05% Nasal [place]) 2 spray DAILY PRN NA CONGESTION 03/24/16 17:00 04/23/16 16:59 04/04/16 10:37 Furosemide (Lasix) 20 mg Q6H IV 03/29/16 18:00 04/28/16 17:59 04/05/16 06:06 Furosemide (Lasix) 40 mg DAILY@17 PO 03/27/16 17:00 03/29/16 16:25 DC 03/28/16 15:59 Furosemide (Lasix) 40 mg ONCE ONCE PO 03/27/16 11:45 03/27/16 11:46 DC 03/27/16 12:47 Furosemide (Lasix) 80 mg DAILY PO 03/28/16 09:00 03/29/16 16:25 DC 03/29/16 08:13 Glucagon 1 mg 1 mg ASDIRECTED PRN SC SEE LABEL COMMENTS 03/24/16 17:45 04/23/16 17:44 Glucose (Glucose) 16 GM ASDIRECTED PRN PO SEE LABEL COMMENTS 03/24/16 17:45 04/23/16 17:44 Guaifenesin (Mucinex) 600 mg BID PRN PO CHEST CONGESTION 03/24/16 17:00 04/23/16 16:59 Home Med (Med Rec Complete!) ASDIRECTED XX 03/24/16 15:15 03/24/16 15:15 DC Influenza Virus Vaccine (Fluzone High Dose) 0.5 ml ONCE ONCE IM 03/26/16 09:00 03/26/16 09:01 DC 03/26/16 10:11 Insulin Human Lispro (HumaLOG INSULIN) SEE PROTOCOL TABLE AC SC 03/25/16 07:30 04/24/16 07:29 04/04/16 17:52 Insulin Human Lispro (HumaLOG INSULIN) SEE PROTOCOL TABLE QHS SC 03/24/16 21:00 04/23/16 20:59 Iopamidol (Isovue-370 76%) 100 ml STK-MED ONCE As Ordered 04/03/16 07:41 04/03/16 07:42 DC Lidocaine (Lidoderm Patch) 3 patch DAILY TD 04/03/16 09:00 05/03/16 08:59 04/04/16 09:19 Lisinopril (Prinivil) 2.5 mg DAILY PO 03/25/16 09:00 03/25/16 09:00 DC Lisinopril 2.5 mg 2.5 mg DAILY PO 03/27/16 09:00 03/28/16 11:06 DC 03/28/16 08:33 Loratadine (Claritin) 10 mg DAILY PRN PO ALLERGIES 03/24/16 17:00 04/23/16 16:59 03/25/16 18:15 Magnesium Hydroxide (Milk Of Magnesia) 30 ml Q4HP PRN PO CONSTIPATION 03/31/16 07:45 04/30/16 07:44 04/04/16 09:17 Magnesium Sulfate/ Dextrose/IV Miscellaneous Supplies (Mag Sulf 1gm/ 100ml (Mag Run)) 100 ml @ 100 mls/hr ONCE ONCE IV 03/25/16 02:00 03/25/16 02:59 DC 03/25/16 02:05 Methylprednisolone (SOLUmedrol) 125 mg STK-MED ONCE As Ordered 03/24/16 13:18 03/24/16 13:19 DC Metoprolol Tartrate (Lopressor) 12.5 mg BID PO 03/25/16 21:00 03/27/16 16:55 DC 03/27/16 09:59 Metoprolol Tartrate (Lopressor) 12.5 mg BID PO 03/30/16 09:00 04/29/16 08:59 04/04/16 21:56 Metoprolol Tartrate (Lopressor) 25 mg BID PO 03/24/16 21:00 03/25/16 11:51 DC Metoprolol Tartrate 25 mg 25 mg BID PO 03/27/16 21:00 03/28/16 11:06 DC Miscellaneous (Unresolved Patient Own Med Order) SEE LABEL COMMENTS UNRESOLVED XX 04/03/16 00:01 04/03/16 20:41 DC 04/03/16 18:33 Multivitamins (Theragram-M) 1 tab DAILY PO 03/25/16 09:00 04/24/16 08:59 04/04/16 09:18 Non-Formulary Medication breo-ellipta pls resume home d... BID INH 04/03/16 21:00 04/03/16 21:00 DC Non-Formulary Medication ( See Comment Field Below ) REMOVE LIDODERM PATCHES DAILY@21 XX 04/03/16 21:00 05/03/16 20:59 04/04/16 21:00 Ondansetron HCl (Zofran) 4 mg Q6HP PRN IV NAUSEA OR VOMITING 03/24/16 16:45 04/23/16 16:44 04/04/16 11:17 Ondansetron HCl (Zofran) 4 mg STK-MED ONCE As Ordered 03/24/16 15:07 03/24/16 15:08 DC Oxycodone/ Acetaminophen (Percocet 5mg/ 325mg Tablet) 1 tab Q4HP PRN PO MODERATE PAIN (PS 5-7) 03/24/16 16:45 04/07/16 16:44 04/01/16 15:11 Pantoprazole Sodium (Protonix) 40 mg DAILY PO 03/25/16 09:00 04/24/16 08:59 04/04/16 09:18 Patient Own Medication (Patient'S Own Med) Breo-ellipta 200/25: ONE PUFF... DAILY INH 04/04/16 09:00 05/04/16 08:59 04/04/16 07:10 Piperacillin Sod/ Tazobactam Sod 3.375 gm/Dextrose 50 ml @ 50 mls/hr Q8H IV 03/24/16 17:00 03/24/16 17:00 DC Piperacillin Sod/ Tazobactam Sod/ Dextrose (Zosyn/Dextrose 5% Mini-Bag Plus) 50 ml @ 50 mls/hr Q8H IV 03/24/16 20:00 03/28/16 10:07 DC 03/28/16 03:22 Polyethylene Glycol (Miralax) 1 pkt DAILYPRN PRN PO CONSTIPATION 03/31/16 07:45 04/30/16 07:44 04/03/16 18:14 Potassium Chloride (Micro-K Extencaps) 10 meq BID PO 03/24/16 21:00 04/01/16 06:58 DC 03/31/16 21:17 Potassium Chloride (Micro-K Extencaps) 20 meq BID PO 04/01/16 09:00 05/01/16 08:59 04/04/16 21:56 Sodium Biphosphate/ Sodium Phosphate (Fleet Enema) 1 ENEMA Q12HP PRN RI CONSTIPATION 03/31/16 07:45 04/30/16 07:44 Sodium Chloride (Nacl 0.9%) 1,000 ml @ 40 mls/hr Q24H IV 03/24/16 16:43 03/26/16 09:26 DC 03/25/16 12:16 Sodium Chloride (Saline Lock Flush) 2 ml ASDIRECTED PRN IV SEE LABEL COMMENTS 03/27/16 05:15 04/26/16 05:14 Sodium Chloride (Saline Lock Flush) 2 ml SLF IV 03/27/16 06:00 04/26/16 05:59 04/05/16 06:06 Tiotropium [place] 1 inhalation 1 inhalation DAILY@08 INH 03/25/16 08:00 04/24/16 07:59 04/04/16 11:23 Vancomycin HCl 1000 mg/IV Miscellaneous Supplies 1 each/ Dextrose 270 ml @ 270 mls/hr Q8H IV 03/24/16 17:00 03/24/16 17:00 DC Vancomycin HCl 1000 mg/IV Miscellaneous Supplies 1 each/ Dextrose 270 ml @ 270 mls/hr Q8H IV 03/24/16 21:00 03/27/16 13:22 DC 03/27/16 06:02 Vancomycin HCl/IV Miscellaneous Supplies/Dextrose (Vancomycin HCl/ Adapter-Vial Mate/ Dextrose 5%) 270 ml @ 135 mls/hr Q8H IV 03/27/16 13:00 03/28/16 10:07 DC 03/28/16 04:43 Allergies Coded Allergies: Sulfa Drugs (Verified Allergy, Unknown, 08/02/12) Sulfa Drugs Cross Reactors (Verified Allergy, Unknown, 08/02/12) Heparin (Verified Adverse Reaction, Intermediate, HIT, 10/07/15) ROMEO LUNDBERG MD Apr 05, 2016 07:44
[2016-04-05] MEDS: cefTRIAXone SOD 2 GM in D5W MINI-BAG PLUS 50 ML IV SCH (11:56)
[2016-04-05] MEDS: D5W IV SCH (11:57)
[2016-04-05] MEDS: FUROSEMIDE IV SCH (11:57)
[2016-04-05] MEDS: ACETAMINOPHEN 500 MG TAB PO PRN ×2 (13:50→22:47)
[2016-04-05 14:00] VITALS: BP 130/59
[2016-04-05 20:18] VITALS: O2SAT 92
[2016-04-05] MEDS: **NOTE PATIENT COMMENT** MISC XX SCH (20:43)
[2016-04-05 22:00] VITALS: BP 160/75
[2016-04-06 00:06] LABS: ORGANISM ID Not indicated. (.); SPECIMEN SOURCE Urine (.)
--- NOTE | 2016-04-06 02:24 | REP ---
Clinical: Right shoulder pain. Comparison: 04/02/2016. Findings: Cardiomegaly with perihilar and bibasilar opacities (left greater than right) and interstitial edema unchanged from prior examination. No new acute process identified. Impression: No change from prior examination. Signed by Linden Bruno MD 04/06/2016 02:16 A
[2016-04-06] MEDS: SLF 3 ML SYR IV SCH ×3 (04:52→19:48)
[2016-04-06 06:00] VITALS: BP 138/82
[2016-04-06 06:39] LABS: BASO % 0.2 % (0.0-1.0); EOS # 0.2 K/mm3 (0.0-0.50); EOS % 1.7 % (0.0-3.0); LARGE UNSTAINED CELL # 0.1 K/mm3 (0.0-0.4); LARGE UNSTAINED CELL % 1.2 % (0.0-4.0); LYMPH # 0.8 K/mm3 (1.5-4.5); LYMPH % 6.8 % (24.0-44.0); MEAN CORPUSCULAR HEMOGLOBIN 26.6 pg (27.0-33.0); MEAN CORPUSCULAR HGB CONC 28.6 g/dl (32.0-36.5); MONO # 0.6 K/mm3 (0.0-0.8); NEUTROPHILS # 8.8 K/mm3 (1.8-7.7); NEUTROPHILS % 84.2 % (36.0-66.0); PLATELET COUNT, AUTOMATED 189 k/mm3 (150-450); RED CELL DISTRIBUTION WIDTH 23.6 % (11.5-14.5); WHITE BLOOD COUNT 10.5 K/mm3 (4.0-10.0)
[2016-04-06 06:41] LABS: CALCIUM LEVEL 8.5 MG/DL (8.8-10.2); CREATININE FOR GFR 1.12 MG/DL (0.55-1.02); GLOMERULAR FILTRATION RATE 51.8 (>45); POTASSIUM SERUM 4.1 MEQ/L (3.5-5.1)
[2016-04-06] MEDS: TIOTROPIUM INHALER/CAPSULE (SPIRIVA) INH SCH (07:09)
[2016-04-06] MEDS: BREO ELLIPTA INH SCH (07:09)
[2016-04-06] MEDS: IPRATROPIUM 0.5MG/ALBUTEROL 2.5MG INH SOL UD 3ML (DUONEB)(J7620) NEB SCH ×4 (07:10→19:33)
[2016-04-06] MEDS: HumaLOG INSULIN (NovoLOG) PER UNIT SC SCH ×4 (08:02→20:03)
[2016-04-06] MEDS: ASCORBIC ACID 500 MG TAB PO SCH ×2 (08:03→17:24)
[2016-04-06] MEDS: METOPROLOL TART 12.5 MG PER 1/2 TAB PO SCH ×2 (08:03→20:02)
[2016-04-06] MEDS: ATORVASTATIN 20 MG TAB PO SCH (08:03)
[2016-04-06] MEDS: DABIGATRAN ETEXILATE 75 MG CAP (PRADAXA) PO SCH ×2 (08:03→20:03)
[2016-04-06] MEDS: ASPIRIN 81 MG ENTERIC TAB PO SCH (08:03)
[2016-04-06] MEDS: POTASSIUM CHLORIDE 10 MEQ SR TABLET PO SCH ×2 (08:03→20:03)
[2016-04-06] MEDS: PANTOPRAZOLE 40MG TAB (PROTONIX) PO SCH (08:04)
[2016-04-06] MEDS: DOCUSATE SODIUM 100 MG CAP PO PRN (08:06)
[2016-04-06] MEDS: FERROUS SULFATE 325MG TAB PO SCH ×2 (08:06→20:02)
[2016-04-06] MEDS: LIDOCAINE 5% (LIDODERM) PATCH TD SCH (08:07)
[2016-04-06] MEDS: MULTIVITAMINS/MINERALS THERAP 1 TAB PO SCH (08:07)
--- NOTE | 2016-04-06 08:56 | IPNPDOC ---
Assessment/Plan Date Seen The patient was seen on 04/06/16. Problems Problems: (1) Acute and chronic respiratory failure with hypoxia Status: Acute Problem Text: multifactorial due to CAP and diastolic chf exacerbation and fluid slowly improving with diuresis and antibiotics. (2) CAP (community acquired pneumonia) Status: Acute Problem Text: finished course on ceftriaxone. (3) Acute on chronic diastolic CHF (congestive heart failure) Status: Acute Problem Text: continue diuresis , daily weights. will start lasix infusion (4) Constipation Status: Resolved Problem Text: on bowel regimen (5) JANE (obstructive sleep apnea) Status: Chronic (6) Morbid obesity Status: Chronic (7) Diabetes Status: Chronic (8) Hypertension Status: Chronic (9) COPD (chronic obstructive pulmonary disease) Status: Chronic Problem Text: continue home meds. (10) CAD (coronary artery disease) Status: Chronic (11) Hyperlipidemia Status: Chronic (12) Mitral stenosis and incompetence Status: Chronic (13) Pulmonary hypertension Status: Chronic (14) Afib Status: Chronic Problem Text: on pradaxa Plan / VTE VTE Prophylaxis Ordered?: Yes Plan / Urinary Catheter Reason for insertion/continuin: Other-document below Subjective CC/HPI The patient is a 66-year-old female admitted with a reason for visit of Acute Respiratory Distress. Events since last encounter no new complaints, breathing good still requiring 4 l of oxygen, making good urine Objective General Exam: : Alert: No Acute Distress Eye Exam: : Conjunctiva & lids normal: EOMI: PERRLANo: Sclera icteric ENT Exam: : Atraumatic: Mucous membr. moist/pink: Pharynx Normal Neck Exam: : SuppleNo: JVD, thyromegaly Chest Exam: : Diminished Heart Exam: : Normal S1: Normal S2: Rate Normal: Regular Rhythm Abdomen Exam: : Normal bowel sounds: SoftNo: Hepatospenomegaly, Tenderness Extremity Exam: : Edema Vital Signs I&O Vital Sign - Last 24 Hours 04/05/16 04/05/16 04/05/16 04/05/16 09:00 09:07 14:00 20:18 Temp 97.2 Pulse 90 84 Resp 18 B/P 130/59 Pulse Ox 91 92 O2 Delivery Nasal Cannula Nasal Cannula Nasal Cannula O2 Flow Rate 4.0 4.0 4.0 04/05/16 04/05/16 04/05/16 04/06/16 20:41 20:51 22:00 06:00 Temp 97.7 97.4 Pulse 100 90 76 Resp 17 19 B/P 131/58 160/75 138/82 Pulse Ox 92 94 O2 Delivery Nasal Cannula Nasal Cannula Nasal Cannula O2 Flow Rate 4.0 4.0 4.0 04/06/16 08:03 Pulse 92 B/P 123/65 I&O- Last 24 Hours up to 6 AM 04/06/16 06:00 Intake Total 1200 ml Output Total 2100 ml Balance -900 ml Laboratory Data Labs 24H Laboratory Tests 2 04/05/16 11:18: Bedside Glucose (Misc Panel) 128H 04/05/16 17:19: Bedside Glucose (Misc Panel) 135H 04/06/16 01:39: Creatine Kinase MB 1.0, Creatine Kinase MB Relative Index 3.84, Total Creatine Kinase 26, Troponin I 0.02 04/06/16 05:57: Anion Gap 8, White Blood Count 10.5H, Red Blood Count 3.28L, Hemoglobin 8.7L, Hematocrit 30.5L, Mean Corpuscular Volume 93.0, Mean Corpuscular Hemoglobin 26.6L, Mean Corpuscular Hemoglobin Concent 28.6L, Red Cell Distribution Width 23.6H, Platelet Count 189, Neutrophils (%) (Auto) 84.2H, Lymphocytes (%) (Auto) 6.8L, Monocytes (%) (Auto) 6.0H, Eosinophils (%) (Auto) 1.7, Basophils (%) (Auto ) 0.2, Neutrophils # (Auto) 8.8H, Lymphocytes # (Auto) 0.8L, Monocytes # (Auto) 0.6, Eosinophils # (Auto) 0.2, Basophils # (Auto) 0.0, Blood Urea Nitrogen 20H, Creatinine 1.12H, Sodium Level 137, Potassium Level 4.1, Chloride Level 98, Carbon Dioxide Level 31, Calcium Level 8.5L, Glomerular Filtration Rate 51.8, Large Unclassified Cells # 0.1, Large Unclassified Cells % 1.2 CBC/BMP Laboratory Tests 04/06/16 05:57 Calcium Level 8.5 L, Red Blood Count 3.28 L, Mean Corpuscular Volume 93.0, Mean Corpuscular Hemoglobin 26.6 L, Mean Corpuscular Hemoglobin Concent 28.6 L, Red Cell Distribution Width 23.6 H, Neutrophils (%) (Auto) 84.2 H, Lymphocytes (%) ( Auto) 6.8 L, Monocytes (%) (Auto) 6.0 H, Eosinophils (%) (Auto) 1.7, Basophils ( %) (Auto) 0.2, Neutrophils # (Auto) 8.8 H, Lymphocytes # (Auto) 0.8 L, Monocytes # (Auto) 0.6, Eosinophils # (Auto) 0.2, Basophils # (Auto) 0.0 FSBS Laboratory Tests Test 04/05/16 11:18 04/05/16 17:19 Range/Units Bedside Glucose (Misc Panel) 128 135 80-115 MG/DL Current Medications Current Medications Current Medications Acetaminophen (Tylenol) 650 mg Q4HP PRN PO MILD PAIN OR FEVER Last administered on 03/25/16at 22:32; Start 03/24/16 at 16:45; Stop 03/26/16 at 09 :27; Status DC Acetaminophen (Tylenol) 650 mg Q6HP PRN PO MILD PAIN OR FEVER Last administered on 04/03/16at 05:07; Start 03/26/16 at 09:30; Stop 04/03/16 at 11: 26; Status DC Acetaminophen (Tylenol) 1,000 mg Q6HP PRN PO PAIN / FEVER Last administered on 04/05/16at 22:47; Start 04/03/16 at 11:30; Stop 05/03/16 at 11:29 Albuterol Sulfate (Proventil Neb) 2.5 mg Q4HP PRN NEB SOB/WHEEZING; Start at 17:00; Stop 03/25/16 at 11:45; Status DC Albuterol Sulfate (Proventil Neb) 2.5 mg RQ4H NEB Last administered on at 03:44; Start 03/28/16 at 12:00; Stop 03/31/16 at 07:01; Status DC Albuterol Sulfate (Proventil, Ventolin Hfa) 2 puff Q4H PRN INH SHORTNESS OF BREATH; Start 03/24/16 at 17:00; Stop 03/24/16 at 17:06; Status DC Albuterol/ Ipratropium (Duoneb (Ipr 0.5mg/Alb 2.5mg)) 3 ml Q2HP PRN NEB SOB/ WHEEZING Last administered on 03/28/16at 07:06; Start 03/25/16 at 11:45; Stop 03/28/16 at 10:54; Status DC Albuterol/ Ipratropium (Duoneb (Ipr 0.5mg/Alb 2.5mg)) 3 ml Q2HP PRN NEB SOB/ WHEEZING; Start 03/31/16 at 07:00; Stop 04/30/16 at 06:59 Albuterol/ Ipratropium (Duoneb (Ipr 0.5mg/Alb 2.5mg)) 3 ml RQID NEB Last administered on 04/05/16at 20:16; Start 03/31/16 at 08:00; Stop 04/30/16 at 07:59 Albuterol/ Ipratropium (Duoneb (Ipr 0.5mg/Alb 2.5mg)) 9 ml STK-MED ONCE As Ordered ; Start 03/24/16 at 13:22; Stop 03/24/16 at 13:23; Status DC Ascorbic Acid (Vitamin C) 500 mg BIDWM PO Last administered on 04/06/16at 08:03 ; Start 03/30/16 at 08:00; Stop 04/29/16 at 07:59 Aspirin (Ecotrin) 81 mg DAILY PO Last administered on 04/06/16at 08:03; Start 03/25/16 at 09:00; Stop 04/24/16 at 08:59 Atorvastatin Calcium (Lipitor) 40 mg DAILY PO Last administered on 04/06/16at 08 :03; Start 03/25/16 at 09:00; Stop 04/24/16 at 08:59 Bisacodyl (Dulcolax) 10 mg Q12HP PRN RI CONSTIPATION; Start 03/31/16 at 07:45; Stop 04/30/16 at 07:44 Ceftriaxone Sodium 2 gm 2 gm STK-MED ONCE As Ordered ; Start 03/24/16 at 15:28 ; Stop 03/24/16 at 15:29; Status DC Ceftriaxone Sodium/Dextrose (Rocephin/ Dextrose 5% Mini-Bag Plus) 50 ml @ 100 mls/hr Q24H IV Last administered on 04/05/16at 11:56; Start 03/28/16 at 12:00; Stop 04/10/16 at 11:59 Dabigatran (Pradaxa) 150 mg BID PO Last administered on 03/26/16at 10:06; Start 03/24/16 at 21:00; Stop 03/26/16 at 14:02; Status DC Dabigatran (Pradaxa) 150 mg BID PO Last administered on 04/06/16at 08:03; Start 03/27/16 at 09:00; Stop 04/10/16 at 08:59 Dextrose (Dextrose 50%) 25 ml ASDIRECTED PRN IV SEE LABEL COMMENTS; Start at 17:45; Stop 04/23/16 at 17:44 Docusate Sodium (Colace) 100 mg BIDP PRN PO CONSTIPATION Last administered on 04/06/16at 08:06; Start 03/26/16 at 09:30; Stop 04/25/16 at 09:29 Ferrous Sulfate (Ferrous Sulfate) 325 mg BID PO Last administered on 04/06/16at 08:06; Start 03/26/16 at 09:00; Stop 04/25/16 at 08:59 Fluticasone Propionate (Flonase 0.05% Nasal [place]) 2 spray DAILY PRN NA CONGESTION Last administered on 04/04/16at 10:37; Start 03/24/16 at 17:00; Stop 04/23/16 at 16:59 Furosemide (Lasix) 20 mg Q6H IV Last administered on 04/05/16at 06:06; Start at 18:00; Stop 04/05/16 at 10:55; Status DC Furosemide (Lasix) 40 mg DAILY@17 PO Last administered on 03/28/16at 15:59; Start 03/27/16 at 17:00; Stop 03/29/16 at 16:25; Status DC Furosemide (Lasix) 40 mg ONCE ONCE PO Last administered on 03/27/16at 12:47; Start 03/27/16 at 11:45; Stop 03/27/16 at 11:46; Status DC Furosemide (Lasix) 80 mg DAILY PO Last administered on 03/29/16at 08:13; Start 03/28/16 at 09:00; Stop 03/29/16 at 16:25; Status DC Furosemide/ Dextrose (Lasix/Dextrose 5%) 250 ml @ 10 mls/hr Q24H IV Last administered on 04/05/16at 11:57; Start 04/05/16 at 11:00; Stop 05/05/16 at 10:59 Glucagon 1 mg 1 mg ASDIRECTED PRN SC SEE LABEL COMMENTS; Start 03/24/16 at 17: 45; Stop 04/23/16 at 17:44 Glucose (Glucose) 16 GM ASDIRECTED PRN PO SEE LABEL COMMENTS; Start 03/24/16 at 17:45; Stop 04/23/16 at 17:44 Guaifenesin (Mucinex) 600 mg BID PRN PO CHEST CONGESTION; Start 03/24/16 at 17 :00; Stop 04/23/16 at 16:59 Home Med (Med Rec Complete!) ASDIRECTED XX ; Start 03/24/16 at 15:15; Stop at 15:15; Status DC Influenza Virus Vaccine (Fluzone High Dose) 0.5 ml ONCE ONCE IM Last administered on 03/26/16at 10:11; Start 03/26/16 at 09:00; Stop 03/26/16 at 09 :01; Status DC Insulin Human Lispro (HumaLOG INSULIN) SEE PROTOCOL TABLE AC SC Last administered on 04/06/16at 08:02; Start 03/25/16 at 07:30; Stop 04/24/16 at 07: 29 Insulin Human Lispro (HumaLOG INSULIN) SEE PROTOCOL TABLE QHS SC ; Start at 21:00; Stop 04/23/16 at 20:59 Iopamidol (Isovue-370 76%) 100 ml STK-MED ONCE As Ordered ; Start 04/03/16 at 07 :41; Stop 04/03/16 at 07:42; Status DC Lidocaine (Lidoderm Patch) 3 patch DAILY TD Last administered on 04/06/16at 08: 07; Start 04/03/16 at 09:00; Stop 05/03/16 at 08:59 Lisinopril (Prinivil) 2.5 mg DAILY PO ; Start 03/25/16 at 09:00; Stop at 09:00; Status DC Lisinopril 2.5 mg 2.5 mg DAILY PO Last administered on 03/28/16at 08:33; Start 03/27/16 at 09:00; Stop 03/28/16 at 11:06; Status DC Loratadine (Claritin) 10 mg DAILY PRN PO ALLERGIES Last administered on at 18:15; Start 03/24/16 at 17:00; Stop 04/23/16 at 16:59 Magnesium Hydroxide (Milk Of Magnesia) 30 ml Q4HP PRN PO CONSTIPATION Last administered on 04/04/16at 09:17; Start 03/31/16 at 07:45; Stop 04/30/16 at 07:44 Magnesium Sulfate/ Dextrose/IV Miscellaneous Supplies (Mag Sulf 1gm/ 100ml (Mag Run)) 100 ml @ 100 mls/hr ONCE ONCE IV Last administered on 03/25/16at 02:05 ; Start 03/25/16 at 02:00; Stop 03/25/16 at 02:59; Status DC Methylprednisolone (SOLUmedrol) 125 mg STK-MED ONCE As Ordered ; Start at 13:18; Stop 03/24/16 at 13:19; Status DC Metoprolol Tartrate (Lopressor) 12.5 mg BID PO Last administered on 03/27/16at 09:59; Start 03/25/16 at 21:00; Stop 03/27/16 at 16:55; Status DC Metoprolol Tartrate (Lopressor) 12.5 mg BID PO Last administered on 04/06/16at 08:03; Start 03/30/16 at 09:00; Stop 04/29/16 at 08:59 Metoprolol Tartrate (Lopressor) 25 mg BID PO ; Start 03/24/16 at 21:00; Stop 03/25/16 at 11:51; Status DC Metoprolol Tartrate 25 mg 25 mg BID PO ; Start 03/27/16 at 21:00; Stop at 11:06; Status DC Miscellaneous (Unresolved Patient Own Med Order) SEE LABEL COMMENTS UNRESOLVED XX Last administered on 04/03/16at 18:33; Start 04/03/16 at 00:01; Stop at 20:41; Status DC Multivitamins (Theragram-M) 1 tab DAILY PO Last administered on 04/06/16at 08:07 ; Start 03/25/16 at 09:00; Stop 04/24/16 at 08:59 Non-Formulary Medication breo-ellipta pls resume home d... BID INH ; Start 04/03 at 21:00; Stop 04/03/16 at 21:00; Status DC Non-Formulary Medication ( See Comment Field Below ) REMOVE LIDODERM PATCHES DAILY@21 XX Last administered on 04/05/16at 20:43; Start 04/03/16 at 21: 00; Stop 05/03/16 at 20:59 Ondansetron HCl (Zofran) 4 mg Q6HP PRN IV NAUSEA OR VOMITING Last administered on 04/04/16at 11:17; Start 03/24/16 at 16:45; Stop 04/23/16 at 16:44 Ondansetron HCl (Zofran) 4 mg STK-MED ONCE As Ordered ; Start 03/24/16 at 15:07 ; Stop 03/24/16 at 15:08; Status DC Oxycodone/ Acetaminophen (Percocet 5mg/ 325mg Tablet) 1 tab Q4HP PRN PO MODERATE PAIN (PS 5-7) Last administered on 04/01/16at 15:11; Start 03/24/16 at 16:45; Stop 04/07/16 at 16:44 Pantoprazole Sodium (Protonix) 40 mg DAILY PO Last administered on 04/06/16at 08 :04; Start 03/25/16 at 09:00; Stop 04/24/16 at 08:59 Patient Own Medication Breo-ellipta 200/25: ONE PUFF... DAILY INH Last administered on 04/06/16at 07:09; Start 04/04/16 at 09:00; Stop 05/04/16 at 08:59 Piperacillin Sod/ Tazobactam Sod 3.375 gm/Dextrose 50 ml @ 50 mls/hr Q8H IV ; Start 03/24/16 at 17:00; Stop 03/24/16 at 17:00; Status DC Piperacillin Sod/ Tazobactam Sod/ Dextrose (Zosyn/Dextrose 5% Mini-Bag Plus) 50 ml @ 50 mls/hr Q8H IV Last administered on 03/28/16at 03:22; Start 03/24/16 at 20:00; Stop 03/28/16 at 10:07; Status DC Polyethylene Glycol (Miralax) 1 pkt DAILYPRN PRN PO CONSTIPATION Last administered on 04/03/16at 18:14; Start 03/31/16 at 07:45; Stop 04/30/16 at 07:44 Potassium Chloride (Micro-K Extencaps) 10 meq BID PO Last administered on at 21:17; Start 03/24/16 at 21:00; Stop 04/01/16 at 06:58; Status DC Potassium Chloride (Micro-K Extencaps) 20 meq BID PO Last administered on at 08:03; Start 04/01/16 at 09:00; Stop 05/01/16 at 08:59 Sodium Biphosphate/ Sodium Phosphate (Fleet Enema) 1 ENEMA Q12HP PRN RI CONSTIPATION; Start 03/31/16 at 07:45; Stop 04/30/16 at 07:44 Sodium Chloride (Nacl 0.9%) 1,000 ml @ 40 mls/hr Q24H IV Last administered on 03/25/16at 12:16; Start 03/24/16 at 16:43; Stop 03/26/16 at 09:26; Status DC Sodium Chloride (Saline Lock Flush) 2 ml ASDIRECTED PRN IV SEE LABEL COMMENTS; Start 03/27/16 at 05:15; Stop 04/26/16 at 05:14 Sodium Chloride (Saline Lock Flush) 2 ml SLF IV Last administered on 04/05/16at 20:42; Start 03/27/16 at 06:00; Stop 04/26/16 at 05:59 Tiotropium [place] 1 inhalation 1 inhalation DAILY@08 INH Last administered on 04/06/16at 07:09; Start 03/25/16 at 08:00; Stop 04/24/16 at 07:59 Vancomycin HCl 1000 mg/IV Miscellaneous Supplies 1 each/ Dextrose 270 ml @ 270 mls/hr Q8H IV ; Start 03/24/16 at 17:00; Stop 03/24/16 at 17:00; Status DC Vancomycin HCl 1000 mg/IV Miscellaneous Supplies 1 each/ Dextrose 270 ml @ 270 mls/hr Q8H IV Last administered on 03/27/16at 06:02; Start 03/24/16 at 21:00; Stop 03/27/16 at 13:22; Status DC Vancomycin HCl/IV Miscellaneous Supplies/Dextrose (Vancomycin HCl/ Adapter-Vial Mate/ Dextrose 5%) 270 ml @ 135 mls/hr Q8H IV Last administered on 03/28/16at 04:43; Start 03/27/16 at 13:00; Stop 03/28/16 at 10:07; Status DC Allergies Coded Allergies: Sulfa Drugs (Verified Allergy, Unknown, 08/02/12) Sulfa Drugs Cross Reactors (Verified Allergy, Unknown, 08/02/12) Heparin (Verified Adverse Reaction, Intermediate, HIT, 10/07/15) ROMEO LUNDBERG MD Apr 06, 2016 08:56
[2016-04-06] MEDS: FUROSEMIDE IV SCH (11:56)
[2016-04-06] MEDS: D5W IV SCH (11:56)
[2016-04-06 14:14] VITALS: BP 124/65
[2016-04-06] MEDS: ONDANSETRON 4MG/2ML VIAL (J2405) IV PRN (19:12)
[2016-04-06] MEDS: FLUTICASONE PROP 0.05% NASAL SPRAY 16 GM (FLONASE) PRN (20:03)
[2016-04-06] MEDS: NYSTATIN 100,000 UNITS/GM TOPICAL PWD 15 GM TOP SCH (20:03)
[2016-04-06] MEDS: **NOTE PATIENT COMMENT** MISC XX SCH (20:04)
[2016-04-06 20:05] VITALS: BP 124/53
[2016-04-06] MEDS: ACETAMINOPHEN 500 MG TAB PO PRN (20:06)
[2016-04-07] MEDS: PERCOCET 5MG/325MG TAB PO PRN ×2 (03:12→16:18)
[2016-04-07] MEDS: IPRATROPIUM 0.5MG/ALBUTEROL 2.5MG INH SOL UD 3ML (DUONEB)(J7620) NEB PRN (03:24)
[2016-04-07] MEDS: SLF 3 ML SYR IV SCH ×3 (04:46→21:26)
[2016-04-07 05:55] VITALS: BP 118/67
[2016-04-07 06:45] LABS: BASO % 0.2 % (0.0-1.0); EOS # 0.1 K/mm3 (0.0-0.50); EOS % 1.4 % (0.0-3.0); LARGE UNSTAINED CELL # 0.2 K/mm3 (0.0-0.4); LARGE UNSTAINED CELL % 2.4 % (0.0-4.0); LYMPH # 0.7 K/mm3 (1.5-4.5); LYMPH % 7.6 % (24.0-44.0); MEAN CORPUSCULAR HEMOGLOBIN 27.7 pg (27.0-33.0); MEAN CORPUSCULAR HGB CONC 28.7 g/dl (32.0-36.5); MEAN CORPUSCULAR VOLUME 96.4 fl (80.0-96.0); MONO # 0.5 K/mm3 (0.0-0.8); MONO % 5.6 % (0.0-5.0); NEUTROPHILS # 7.4 K/mm3 (1.8-7.7); NEUTROPHILS % 82.7 % (36.0-66.0); PLATELET COUNT, AUTOMATED 162 k/mm3 (150-450); RED CELL DISTRIBUTION WIDTH 22.3 % (11.5-14.5); WHITE BLOOD COUNT 8.9 K/mm3 (4.0-10.0)
[2016-04-07] MEDS: IPRATROPIUM 0.5MG/ALBUTEROL 2.5MG INH SOL UD 3ML (DUONEB)(J7620) NEB SCH ×4 (08:00→19:15)
[2016-04-07] MEDS: TIOTROPIUM INHALER/CAPSULE (SPIRIVA) INH SCH (08:00)
[2016-04-07] MEDS: BREO ELLIPTA INH SCH (08:00)
[2016-04-07 08:17] LABS: ALBUMIN 3.3 GM/DL (3.2-5.2); ALBUMIN/GLOBULIN RATIO 0.89 (1.00-1.93); BILIRUBIN,TOTAL 0.8 MG/DL (0.2-1.0); CALCIUM LEVEL 8.5 MG/DL (8.8-10.2); CREATININE FOR GFR 1.07 MG/DL (0.55-1.02); GLOMERULAR FILTRATION RATE 54.6 (>45); MAGNESIUM LEVEL 2.6 MG/DL (1.8-2.4)
[2016-04-07] MEDS: ASPIRIN 81 MG ENTERIC TAB PO SCH (08:58)
[2016-04-07] MEDS: LIDOCAINE 5% (LIDODERM) PATCH TD SCH (08:58)
[2016-04-07] MEDS: HumaLOG INSULIN (NovoLOG) PER UNIT SC SCH ×4 (08:58→21:00)
[2016-04-07] MEDS: DABIGATRAN ETEXILATE 75 MG CAP (PRADAXA) PO SCH ×2 (08:59→21:26)
[2016-04-07] MEDS: MULTIVITAMINS/MINERALS THERAP 1 TAB PO SCH (08:59)
[2016-04-07] MEDS: ASCORBIC ACID 500 MG TAB PO SCH ×2 (08:59→17:42)
[2016-04-07] MEDS: FERROUS SULFATE 325MG TAB PO SCH ×2 (08:59→21:25)
[2016-04-07] MEDS: METOPROLOL TART 12.5 MG PER 1/2 TAB PO SCH ×2 (08:59→21:30)
[2016-04-07] MEDS: ATORVASTATIN 20 MG TAB PO SCH (08:59)
[2016-04-07] MEDS: PANTOPRAZOLE 40MG TAB (PROTONIX) PO SCH (08:59)
[2016-04-07] MEDS: POTASSIUM CHLORIDE 10 MEQ SR TABLET PO SCH ×2 (08:59→21:26)
[2016-04-07] MEDS: NYSTATIN 100,000 UNITS/GM TOPICAL PWD 15 GM TOP SCH ×2 (09:00→21:26)
[2016-04-07] MEDS: FUROSEMIDE IV SCH (11:31)
[2016-04-07] MEDS: D5W IV SCH (11:31)
[2016-04-07 14:00] VITALS: BP 122/68
[2016-04-07] MEDS: **NOTE PATIENT COMMENT** MISC XX SCH (21:00)
[2016-04-07 21:15] VITALS: BP 136/88
--- NOTE | 2016-04-07 21:56 | IPNPDOC ---
Assessment/Plan Date Seen The patient was seen on 04/07/16. Problems Problems: (1) Acute and chronic respiratory failure with hypoxia Status: Acute Problem Text: multifactorial due to CAP and diastolic chf exacerbation and fluid slowly improving with diuresis and antibiotics. (2) CAP (community acquired pneumonia) Status: Acute Problem Text: finished course on ceftriaxone. (3) Acute on chronic diastolic CHF (congestive heart failure) Status: Acute Problem Text: continue diuresis , daily weights. will start lasix infusion (4) Constipation Status: Resolved Problem Text: on bowel regimen (5) JANE (obstructive sleep apnea) Status: Chronic (6) Morbid obesity Status: Chronic (7) Diabetes Status: Chronic (8) Hypertension Status: Chronic (9) COPD (chronic obstructive pulmonary disease) Status: Chronic Problem Text: continue home meds. (10) CAD (coronary artery disease) Status: Chronic (11) Hyperlipidemia Status: Chronic (12) Mitral stenosis and incompetence Status: Chronic (13) Pulmonary hypertension Status: Chronic (14) Afib Status: Chronic Problem Text: on pradaxa Plan / VTE VTE Prophylaxis Ordered?: Yes Plan / Urinary Catheter Reason for insertion/continuin: Other-document below Subjective CC/HPI The patient is a 66-year-old female admitted with a reason for visit of Acute Respiratory Distress. Events since last encounter had episode of severe sob at night with oxygen saturations dropping to 70s, having good negative balance Objective General Exam: : Alert: No Acute Distress Eye Exam: : Conjunctiva & lids normal: EOMI: PERRLANo: Sclera icteric ENT Exam: : Atraumatic: Mucous membr. moist/pink: Pharynx Normal Neck Exam: : SuppleNo: JVD, thyromegaly Chest Exam: : Diminished Heart Exam: : Normal S1: Normal S2: Rate Normal: Regular Rhythm Abdomen Exam: : Normal bowel sounds: SoftNo: Hepatospenomegaly, Tenderness Extremity Exam: : Edema Vital Signs I&O Vital Sign - Last 24 Hours 04/07/16 04/07/16 04/07/16 04/07/16 03:12 05:55 08:00 08:59 Temp 97.5 Pulse 99 99 Resp 22 19 20 B/P 118/67 118/67 Pulse Ox 89 O2 Delivery Nasal Cannula Nasal Cannula Nasal Cannula O2 Flow Rate 4.0 3.0 4.0 12/01/1304/07/16 04/07/16 04/07/16 09:00 14:00 16:18 16:48 Temp 97.6 Pulse 95 Resp 16 20 20 B/P 122/68 Pulse Ox 92 O2 Delivery Nasal Cannula Nasal Cannula Nasal Cannula O2 Flow Rate 4.0 4.0 4.0 04/07/16 21:30 Pulse 100 B/P 136/88 I&O- Last 24 Hours up to 6 AM 04/07/16 05:59 Intake Total 480 ml Output Total 1975 ml Balance -1495 ml Laboratory Data Labs 24H Laboratory Tests 2 04/07/16 05:54: Blood Urea Nitrogen 20H, Creatinine 1.07H, Sodium Level 140, Potassium Level 4.0 , Chloride Level 100, Carbon Dioxide Level 31, Calcium Level 8.5L, Aspartate Amino Transf (AST/SGOT) 16, Alanine Aminotransferase (ALT/SGPT) 18, Alkaline Phosphatase 81, Total Bilirubin 0.8, Total Protein 7.0, Albumin 3.3, Albumin/ Globulin Ratio 0.89L, Anion Gap 9, White Blood Count 8.9, Red Blood Count 3.38L , Hemoglobin 9.4L, Hematocrit 32.6L, Mean Corpuscular Volume 96.4H, Mean Corpuscular Hemoglobin 27.7, Mean Corpuscular Hemoglobin Concent 28.7L, Red Cell Distribution Width 22.3H, Platelet Count 162, Neutrophils (%) (Auto) 82.7H , Lymphocytes (%) (Auto) 7.6L, Monocytes (%) (Auto) 5.6H, Eosinophils (%) (Auto ) 1.4, Basophils (%) (Auto) 0.2, Neutrophils # (Auto) 7.4, Lymphocytes # (Auto) 0.7L, Monocytes # (Auto) 0.5, Eosinophils # (Auto) 0.1, Basophils # (Auto) 0.0, Glomerular Filtration Rate 54.6, Large Unclassified Cells # 0.2, Large Unclassified Cells % 2.4, Magnesium Level 2.6H 04/07/16 05:58: Bedside Glucose (Misc Panel) 129H 04/07/16 12:14: Bedside Glucose (Misc Panel) 131H 04/07/16 16:44: Bedside Glucose (Misc Panel) 136H 04/07/16 20:01: Bedside Glucose (Misc Panel) 185H CBC/BMP Laboratory Tests 04/07/16 05:54 Calcium Level 8.5 L, Aspartate Amino Transf (AST/SGOT) 16, Alanine Aminotransferase (ALT/SGPT) 18, Alkaline Phosphatase 81, Total Bilirubin 0.8, Total Protein 7.0, Albumin 3.3, Red Blood Count 3.38 L, Mean Corpuscular Volume 96.4 H, Mean Corpuscular Hemoglobin 27.7, Mean Corpuscular Hemoglobin Concent 28.7 L, Red Cell Distribution Width 22.3 H, Neutrophils (%) (Auto) 82.7 H, Lymphocytes (%) (Auto) 7.6 L, Monocytes (%) (Auto) 5.6 H, Eosinophils (%) (Auto ) 1.4, Basophils (%) (Auto) 0.2, Neutrophils # (Auto) 7.4, Lymphocytes # (Auto) 0.7 L, Monocytes # (Auto) 0.5, Eosinophils # (Auto) 0.1, Basophils # (Auto) 0.0 FSBS Laboratory Tests Test 04/07/16 05:58 04/07/16 12:14 04/07/16 16:44 04/07/16 20:01 Range/Units Bedside Glucose (Misc Panel) 129 131 136 185 80-115 MG/DL Current Medications Current Medications Current Medications Acetaminophen (Tylenol) 650 mg Q4HP PRN PO MILD PAIN OR FEVER Last administered on 03/25/16at 22:32; Start 03/24/16 at 16:45; Stop 03/26/16 at 09 :27; Status DC Acetaminophen (Tylenol) 650 mg Q6HP PRN PO MILD PAIN OR FEVER Last administered on 04/03/16at 05:07; Start 03/26/16 at 09:30; Stop 04/03/16 at 11: 26; Status DC Acetaminophen (Tylenol) 1,000 mg Q6HP PRN PO PAIN / FEVER Last administered on 04/06/16at 20:06; Start 04/03/16 at 11:30; Stop 05/03/16 at 11:29 Albuterol Sulfate (Proventil Neb) 2.5 mg Q4HP PRN NEB SOB/WHEEZING; Start at 17:00; Stop 03/25/16 at 11:45; Status DC Albuterol Sulfate (Proventil Neb) 2.5 mg RQ4H NEB Last administered on at 03:44; Start 03/28/16 at 12:00; Stop 03/31/16 at 07:01; Status DC Albuterol Sulfate (Proventil, Ventolin Hfa) 2 puff Q4H PRN INH SHORTNESS OF BREATH; Start 03/24/16 at 17:00; Stop 03/24/16 at 17:06; Status DC Albuterol/ Ipratropium (Duoneb (Ipr 0.5mg/Alb 2.5mg)) 3 ml Q2HP PRN NEB SOB/ WHEEZING Last administered on 03/28/16at 07:06; Start 03/25/16 at 11:45; Stop 03/28/16 at 10:54; Status DC Albuterol/ Ipratropium (Duoneb (Ipr 0.5mg/Alb 2.5mg)) 3 ml Q2HP PRN NEB SOB/ WHEEZING Last administered on 04/07/16at 03:24; Start 03/31/16 at 07:00; Stop 04/30/16 at 06:59 Albuterol/ Ipratropium (Duoneb (Ipr 0.5mg/Alb 2.5mg)) 3 ml RQID NEB Last administered on 04/07/16at 19:15; Start 03/31/16 at 08:00; Stop 04/30/16 at 07:59 Albuterol/ Ipratropium (Duoneb (Ipr 0.5mg/Alb 2.5mg)) 9 ml STK-MED ONCE As Ordered ; Start 03/24/16 at 13:22; Stop 03/24/16 at 13:23; Status DC Ascorbic Acid (Vitamin C) 500 mg BIDWM PO Last administered on 04/07/16at 17:42 ; Start 03/30/16 at 08:00; Stop 04/29/16 at 07:59 Aspirin (Ecotrin) 81 mg DAILY PO Last administered on 04/07/16at 08:58; Start 03/25/16 at 09:00; Stop 04/24/16 at 08:59 Atorvastatin Calcium (Lipitor) 40 mg DAILY PO Last administered on 04/07/16at 08 :59; Start 03/25/16 at 09:00; Stop 04/24/16 at 08:59 Bisacodyl (Dulcolax) 10 mg Q12HP PRN IA CONSTIPATION; Start 03/31/16 at 07:45; Stop 04/30/16 at 07:44 Ceftriaxone Sodium 2 gm 2 gm STK-MED ONCE As Ordered ; Start 03/24/16 at 15:28 ; Stop 03/24/16 at 15:29; Status DC Ceftriaxone Sodium/Dextrose (Rocephin/ Dextrose 5% Mini-Bag Plus) 50 ml @ 100 mls/hr Q24H IV Last administered on 04/05/16at 11:56; Start 03/28/16 at 12:00; Stop 04/06/16 at 08:55; Status DC Dabigatran (Pradaxa) 150 mg BID PO Last administered on 03/26/16at 10:06; Start 03/24/16 at 21:00; Stop 03/26/16 at 14:02; Status DC Dabigatran (Pradaxa) 150 mg BID PO Last administered on 04/07/16at 21:26; Start 03/27/16 at 09:00; Stop 04/10/16 at 08:59 Dextrose (Dextrose 50%) 25 ml ASDIRECTED PRN IV SEE LABEL COMMENTS; Start at 17:45; Stop 04/23/16 at 17:44 Docusate Sodium (Colace) 100 mg BIDP PRN PO CONSTIPATION Last administered on 04/06/16at 08:06; Start 03/26/16 at 09:30; Stop 04/25/16 at 09:29 Ferrous Sulfate (Ferrous Sulfate) 325 mg BID PO Last administered on 04/07/16at 21:25; Start 03/26/16 at 09:00; Stop 04/25/16 at 08:59 Fluticasone Propionate (Flonase 0.05% Nasal [place]) 2 spray DAILY PRN NA CONGESTION Last administered on 04/06/16at 20:03; Start 03/24/16 at 17:00; Stop 04/23/16 at 16:59 Furosemide (Lasix) 20 mg Q6H IV Last administered on 04/05/16at 06:06; Start at 18:00; Stop 04/05/16 at 10:55; Status DC Furosemide (Lasix) 40 mg DAILY@17 PO Last administered on 03/28/16at 15:59; Start 03/27/16 at 17:00; Stop 03/29/16 at 16:25; Status DC Furosemide (Lasix) 40 mg ONCE ONCE PO Last administered on 03/27/16at 12:47; Start 03/27/16 at 11:45; Stop 03/27/16 at 11:46; Status DC Furosemide (Lasix) 80 mg DAILY PO Last administered on 03/29/16at 08:13; Start 03/28/16 at 09:00; Stop 03/29/16 at 16:25; Status DC Furosemide/ Dextrose (Lasix/Dextrose 5%) 250 ml @ 10 mls/hr Q24H IV Last administered on 04/07/16at 11:31; Start 04/05/16 at 11:00; Stop 05/05/16 at 10:59 Glucagon 1 mg 1 mg ASDIRECTED PRN SC SEE LABEL COMMENTS; Start 03/24/16 at 17: 45; Stop 04/23/16 at 17:44 Glucose (Glucose) 16 GM ASDIRECTED PRN PO SEE LABEL COMMENTS; Start 03/24/16 at 17:45; Stop 04/23/16 at 17:44 Guaifenesin (Mucinex) 600 mg BID PRN PO CHEST CONGESTION; Start 03/24/16 at 17 :00; Stop 04/23/16 at 16:59 Home Med (Med Rec Complete!) ASDIRECTED XX ; Start 03/24/16 at 15:15; Stop at 15:15; Status DC Influenza Virus Vaccine (Fluzone High Dose) 0.5 ml ONCE ONCE IM Last administered on 03/26/16at 10:11; Start 03/26/16 at 09:00; Stop 03/26/16 at 09 :01; Status DC Insulin Human Lispro (HumaLOG INSULIN) SEE PROTOCOL TABLE AC SC Last administered on 04/07/16at 17:42; Start 03/25/16 at 07:30; Stop 04/24/16 at 07: 29 Insulin Human Lispro (HumaLOG INSULIN) SEE PROTOCOL TABLE QHS SC ; Start at 21:00; Stop 04/23/16 at 20:59 Iopamidol (Isovue-370 76%) 100 ml STK-MED ONCE As Ordered ; Start 04/03/16 at 07 :41; Stop 04/03/16 at 07:42; Status DC Lidocaine (Lidoderm Patch) 3 patch DAILY TD Last administered on 04/07/16at 08: 58; Start 04/03/16 at 09:00; Stop 05/03/16 at 08:59 Lisinopril (Prinivil) 2.5 mg DAILY PO ; Start 03/25/16 at 09:00; Stop at 09:00; Status DC Lisinopril 2.5 mg 2.5 mg DAILY PO Last administered on 03/28/16at 08:33; Start 03/27/16 at 09:00; Stop 03/28/16 at 11:06; Status DC Loratadine (Claritin) 10 mg DAILY PRN PO ALLERGIES Last administered on at 18:15; Start 03/24/16 at 17:00; Stop 04/23/16 at 16:59 Magnesium Hydroxide (Milk Of Magnesia) 30 ml Q4HP PRN PO CONSTIPATION Last administered on 04/04/16at 09:17; Start 03/31/16 at 07:45; Stop 04/30/16 at 07:44 Magnesium Sulfate/ Dextrose/IV Miscellaneous Supplies (Mag Sulf 1gm/ 100ml (Mag Run)) 100 ml @ 100 mls/hr ONCE ONCE IV Last administered on 03/25/16at 02:05 ; Start 03/25/16 at 02:00; Stop 03/25/16 at 02:59; Status DC Methylprednisolone (SOLUmedrol) 125 mg STK-MED ONCE As Ordered ; Start at 13:18; Stop 03/24/16 at 13:19; Status DC Metoprolol Tartrate (Lopressor) 12.5 mg BID PO Last administered on 03/27/16at 09:59; Start 03/25/16 at 21:00; Stop 03/27/16 at 16:55; Status DC Metoprolol Tartrate (Lopressor) 12.5 mg BID PO Last administered on 04/07/16at 21:30; Start 03/30/16 at 09:00; Stop 04/29/16 at 08:59 Metoprolol Tartrate (Lopressor) 25 mg BID PO ; Start 03/24/16 at 21:00; Stop 03/25/16 at 11:51; Status DC Metoprolol Tartrate 25 mg 25 mg BID PO ; Start 03/27/16 at 21:00; Stop at 11:06; Status DC Miscellaneous (Unresolved Patient Own Med Order) SEE LABEL COMMENTS UNRESOLVED XX Last administered on 04/03/16at 18:33; Start 04/03/16 at 00:01; Stop at 20:41; Status DC Multivitamins (Theragram-M) 1 tab DAILY PO Last administered on 04/07/16 08:59 ; Start 03/25/16 at 09:00; Stop 04/24/16 at 08:59 Non-Formulary Medication breo-ellipta pls resume home d... BID INH ; Start 04/03 at 21:00; Stop 04/03/16 at 21:00; Status DC Non-Formulary Medication ( See Comment Field Below ) REMOVE LIDODERM PATCHES DAILY@21 XX Last administered on 04/07/16at 21:00; Start 04/03/16 at 21: 00; Stop 05/03/16 at 20:59 Nystatin (Mycostatin Powder, Nystop) apply under abd folds ... BID TOP Last administered on 04/07/16 21:26; Start 04/06/16 at 21:00; Stop 05/06/16 at 20:59 Ondansetron HCl (Zofran) 4 mg Q6HP PRN IV NAUSEA OR VOMITING Last administered on 04/06/16at 19:12; Start 03/24/16 at 16:45; Stop 04/23/16 at 16:44 Ondansetron HCl (Zofran) 4 mg STK-MED ONCE As Ordered ; Start 03/24/16 at 15:07 ; Stop 03/24/16 at 15:08; Status DC Oxycodone/ Acetaminophen (Percocet 5mg/ 325mg Tablet) 1 tab Q4HP PRN PO MODERATE PAIN (PS 5-7) Last administered on 04/07/16at 16:18; Start 03/24/16 at 16:45; Stop 04/14/16 at 16:44 Pantoprazole Sodium (Protonix) 40 mg DAILY PO Last administered on 04/07/16 08 :59; Start 03/25/16 at 09:00; Stop 04/24/16 at 08:59 Patient Own Medication Breo-ellipta 200/25: ONE PUFF... DAILY INH Last administered on 04/07/16at 08:00; Start 04/04/16 at 09:00; Stop 05/04/16 at 08:59 Piperacillin Sod/ Tazobactam Sod 3.375 gm/Dextrose 50 ml @ 50 mls/hr Q8H IV ; Start 03/24/16 at 17:00; Stop 03/24/16 at 17:00; Status DC Piperacillin Sod/ Tazobactam Sod/ Dextrose (Zosyn/Dextrose 5% Mini-Bag Plus) 50 ml @ 50 mls/hr Q8H IV Last administered on 03/28/16at 03:22; Start 03/24/16 at 20:00; Stop 03/28/16 at 10:07; Status DC Polyethylene Glycol (Miralax) 1 pkt DAILYPRN PRN PO CONSTIPATION Last administered on 04/03/16at 18:14; Start 03/31/16 at 07:45; Stop 04/30/16 at 07:44 Potassium Chloride (Micro-K Extencaps) 10 meq BID PO Last administered on at 21:17; Start 03/24/16 at 21:00; Stop 04/01/16 at 06:58; Status DC Potassium Chloride (Micro-K Extencaps) 20 meq BID PO Last administered on at 21:26; Start 04/01/16 at 09:00; Stop 05/01/16 at 08:59 Sodium Biphosphate/ Sodium Phosphate (Fleet Enema) 1 ENEMA Q12HP PRN IA CONSTIPATION; Start 03/31/16 at 07:45; Stop 04/30/16 at 07:44 Sodium Chloride (Nacl 0.9%) 1,000 ml @ 40 mls/hr Q24H IV Last administered on 03/25/16at 12:16; Start 03/24/16 at 16:43; Stop 03/26/16 at 09:26; Status DC Sodium Chloride (Saline Lock Flush) 2 ml ASDIRECTED PRN IV SEE LABEL COMMENTS; Start 03/27/16 at 05:15; Stop 04/26/16 at 05:14 Sodium Chloride (Saline Lock Flush) 2 ml SLF IV Last administered on 04/06/16at 13:11; Start 03/27/16 at 06:00; Stop 04/26/16 at 05:59 Tiotropium [place] 1 inhalation 1 inhalation DAILY@08 INH Last administered on 04/07/16at 08:00; Start 03/25/16 at 08:00; Stop 04/24/16 at 07:59 Vancomycin HCl 1000 mg/IV Miscellaneous Supplies 1 each/ Dextrose 270 ml @ 270 mls/hr Q8H IV ; Start 03/24/16 at 17:00; Stop 03/24/16 at 17:00; Status DC Vancomycin HCl 1000 mg/IV Miscellaneous Supplies 1 each/ Dextrose 270 ml @ 270 mls/hr Q8H IV Last administered on 03/27/16at 06:02; Start 03/24/16 at 21:00; Stop 03/27/16 at 13:22; Status DC Vancomycin HCl/IV Miscellaneous Supplies/Dextrose (Vancomycin HCl/ Adapter-Vial Mate/ Dextrose 5%) 270 ml @ 135 mls/hr Q8H IV Last administered on 03/28/16at 04:43; Start 03/27/16 at 13:00; Stop 03/28/16 at 10:07; Status DC Allergies Coded Allergies: Sulfa Drugs (Verified Allergy, Unknown, 08/02/12) Sulfa Drugs Cross Reactors (Verified Allergy, Unknown, 08/02/12) Heparin (Verified Adverse Reaction, Intermediate, HIT, 10/07/15) ROMEO ULNDBERG MD Apr 07, 2016 21:56
--- NOTE | 2016-04-07 23:27 | ECGEPIP ---
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
[2016-04-08] MEDS: SLF 3 ML SYR IV SCH ×3 (05:02→21:15)
[2016-04-08 06:00] VITALS: BP 132/77
[2016-04-08 06:16] LABS: ANION GAP 8 MEQ/L (8-16); BLOOD UREA NITROGEN 19 MG/DL (7-18); CARBON DIOXIDE LEVEL 32 MEQ/L (21-32); CHLORIDE LEVEL 99 MEQ/L (98-107); CREATININE FOR GFR 0.93 MG/DL (0.55-1.02); GLOMERULAR FILTRATION RATE > 60.0 (>45); GLUCOSE, FASTING 126 MG/DL (80-110); MAGNESIUM LEVEL 2.5 MG/DL (1.8-2.4); POTASSIUM SERUM 3.9 MEQ/L (3.5-5.1); SODIUM LEVEL 139 MEQ/L (136-145)
[2016-04-08 06:17] LABS: BASO % 0.3 % (0.0-1.0); EOS # 0.1 K/mm3 (0.0-0.50); EOS % 1.6 % (0.0-3.0); LARGE UNSTAINED CELL # 0.2 K/mm3 (0.0-0.4); LARGE UNSTAINED CELL % 2.1 % (0.0-4.0); LYMPH # 0.8 K/mm3 (1.5-4.5); LYMPH % 8.4 % (24.0-44.0); MEAN CORPUSCULAR HEMOGLOBIN 27.6 pg (27.0-33.0); MEAN CORPUSCULAR HGB CONC 28.4 g/dl (32.0-36.5); MEAN CORPUSCULAR VOLUME 96.9 fl (80.0-96.0); MONO # 0.6 K/mm3 (0.0-0.8); MONO % 6.4 % (0.0-5.0); NEUTROPHILS # 7.3 K/mm3 (1.8-7.7); NEUTROPHILS % 81.2 % (36.0-66.0); PLATELET COUNT, AUTOMATED 178 k/mm3 (150-450); RED CELL DISTRIBUTION WIDTH 22.1 % (11.5-14.5)
[2016-04-08 06:49] LABS: ADD MORPHOLOGY? YES
[2016-04-08 07:18] LABS: ANISOCYTOSIS 3+; HYPOCHROMASIA 3+
[2016-04-08] MEDS: LIDOCAINE 5% (LIDODERM) PATCH TD SCH (07:52)
[2016-04-08] MEDS: METOPROLOL TART 12.5 MG PER 1/2 TAB PO SCH ×2 (07:53→21:17)
[2016-04-08] MEDS: DABIGATRAN ETEXILATE 75 MG CAP (PRADAXA) PO SCH ×2 (07:53→21:16)
[2016-04-08] MEDS: DOCUSATE SODIUM 100 MG CAP PO PRN (07:53)
[2016-04-08] MEDS: LORATADINE 10 MG TAB PO PRN (07:53)
[2016-04-08] MEDS: FERROUS SULFATE 325MG TAB PO SCH ×2 (07:53→21:16)
[2016-04-08] MEDS: ATORVASTATIN 20 MG TAB PO SCH (07:54)
[2016-04-08] MEDS: ASPIRIN 81 MG ENTERIC TAB PO SCH (07:54)
[2016-04-08] MEDS: MULTIVITAMINS/MINERALS THERAP 1 TAB PO SCH (07:54)
[2016-04-08] MEDS: PANTOPRAZOLE 40MG TAB (PROTONIX) PO SCH (07:54)
[2016-04-08] MEDS: ASCORBIC ACID 500 MG TAB PO SCH ×2 (07:54→16:34)
[2016-04-08] MEDS: POTASSIUM CHLORIDE 10 MEQ SR TABLET PO SCH ×2 (07:55→21:16)
[2016-04-08] MEDS: MOM 30ML SUSPENSION UDC PO PRN (07:55)
[2016-04-08] MEDS: PERCOCET 5MG/325MG TAB PO PRN ×2 (07:55→19:36)
[2016-04-08] MEDS: HumaLOG INSULIN (NovoLOG) PER UNIT SC SCH ×4 (07:58→21:10)
[2016-04-08] MEDS: IPRATROPIUM 0.5MG/ALBUTEROL 2.5MG INH SOL UD 3ML (DUONEB)(J7620) NEB SCH ×4 (08:00→19:19)
--- NOTE | 2016-04-08 08:36 | IPNPDOC ---
Assessment/Plan Date Seen The patient was seen on 04/08/16. Problems Problems: (1) Acute on chronic diastolic CHF (congestive heart failure) Status: Acute Problem Text: continue diuresis , daily weights. on lasix infusion (2) Acute and chronic respiratory failure with hypoxia Status: Acute Problem Text: multifactorial due to CAP and diastolic chf exacerbation and fluid slowly improving with diuresis and antibiotics. (3) CAP (community acquired pneumonia) Status: Acute Problem Text: finished course on ceftriaxone. (4) Constipation Status: Resolved Problem Text: on bowel regimen (5) JANE (obstructive sleep apnea) Status: Chronic (6) Morbid obesity Status: Chronic (7) Diabetes Status: Chronic (8) Hypertension Status: Chronic (9) COPD (chronic obstructive pulmonary disease) Status: Chronic Problem Text: continue home meds. (10) CAD (coronary artery disease) Status: Chronic (11) Hyperlipidemia Status: Chronic (12) Mitral stenosis and incompetence Status: Chronic (13) Pulmonary hypertension Status: Chronic (14) Afib Status: Chronic Problem Text: on pradaxa Plan / VTE VTE Prophylaxis Ordered?: Yes Plan / Urinary Catheter Reason for insertion/continuin: Other-document below Subjective CC/HPI The patient is a 66-year-old female admitted with a reason for visit of Acute Respiratory Distress. Events since last encounter no new complaints continues to be 1 to 1.5 liter negative in 24 hours, still with severe bipedal edema, intermittent episodes of SOB with drops in saturations to 70s Objective General Exam: : Alert: No Acute Distress Eye Exam: : Conjunctiva & lids normal: EOMI: PERRLANo: Sclera icteric ENT Exam: : Atraumatic: Mucous membr. moist/pink: Pharynx Normal Neck Exam: : SuppleNo: JVD, thyromegaly Chest Exam: : Diminished Heart Exam: : Normal S1: Normal S2: Rate Normal: Regular Rhythm Abdomen Exam: : Normal bowel sounds: SoftNo: Hepatospenomegaly, Tenderness Extremity Exam: : Edema Vital Signs I&O Vital Sign - Last 24 Hours 04/07/16 04/07/16 04/07/16 04/07/16 08:59 09:00 14:00 16:18 Temp 97.6 Pulse 99 95 Resp 16 20 B/P 118/67 122/68 Pulse Ox 92 O2 Delivery Nasal Cannula Nasal Cannula O2 Flow Rate 4.0 4.0 04/07/16 04/07/16 04/07/16 04/07/16 16:48 21:00 21:15 21:30 Temp 97.9 Pulse 100 100 Resp 20 19 B/P 136/88 136/88 Pulse Ox 90 O2 Delivery Nasal Cannula Nasal Cannula Nasal Cannula O2 Flow Rate 4.0 4.0 4.0 04/08/16 04/08/16 04/08/16 06:00 07:53 07:55 Temp 97.6 Pulse 91 100 Resp 18 20 B/P 132/77 136/88 Pulse Ox 90 O2 Delivery Nasal Cannula O2 Flow Rate 3.0 I&O- Last 24 Hours up to 6 AM 04/08/16 06:00 Intake Total 1190 ml Output Total 2350 ml Balance -1160 ml Laboratory Data Labs 24H Laboratory Tests 2 04/07/16 12:14: Bedside Glucose (Misc Panel) 131H 04/07/16 16:44: Bedside Glucose (Misc Panel) 136H 04/07/16 20:01: Bedside Glucose (Misc Panel) 185H 04/08/16 05:35: Anion Gap 8, Anisocytosis 3+, White Blood Count 9.0, Red Blood Count 3.22L, Hemoglobin 8.9L, Hematocrit 31.3L, Mean Corpuscular Volume 96.9H, Mean Corpuscular Hemoglobin 27.6, Mean Corpuscular Hemoglobin Concent 28.4L, Red Cell Distribution Width 22.1H, Platelet Count 178, Neutrophils (%) (Auto) 81.2H , Lymphocytes (%) (Auto) 8.4L, Monocytes (%) (Auto) 6.4H, Eosinophils (%) (Auto ) 1.6, Basophils (%) (Auto) 0.3, Neutrophils # (Auto) 7.3, Lymphocytes # (Auto) 0.8L, Monocytes # (Auto) 0.6, Eosinophils # (Auto) 0.1, Basophils # (Auto) 0.0, Blood Urea Nitrogen 19H, Creatinine 0.93, Sodium Level 139, Potassium Level 3.9 , Chloride Level 99, Carbon Dioxide Level 32, Calcium Level 8.0L, Glomerular Filtration Rate > 60.0, Hypochromasia 3+, Large Unclassified Cells # 0.2, Large Unclassified Cells % 2.1, Macrocytosis 2+, Magnesium Level 2.5H, Platelet Estimate NORMAL CBC/BMP Laboratory Tests 04/08/16 05:35 Calcium Level 8.0 L, Red Blood Count 3.22 L, Mean Corpuscular Volume 96.9 H, Mean Corpuscular Hemoglobin 27.6, Mean Corpuscular Hemoglobin Concent 28.4 L, Red Cell Distribution Width 22.1 H, Neutrophils (%) (Auto) 81.2 H, Lymphocytes ( %) (Auto) 8.4 L, Monocytes (%) (Auto) 6.4 H, Eosinophils (%) (Auto) 1.6, Basophils (%) (Auto) 0.3, Neutrophils # (Auto) 7.3, Lymphocytes # (Auto) 0.8 L, Monocytes # (Auto) 0.6, Eosinophils # (Auto) 0.1, Basophils # (Auto) 0.0 FSBS Laboratory Tests Test 04/07/16 12:14 04/07/16 16:44 04/07/16 20:01 Range/Units Bedside Glucose (Misc Panel) 131 136 185 80-115 MG/DL Current Medications Current Medications Current Medications Acetaminophen (Tylenol) 650 mg Q4HP PRN PO MILD PAIN OR FEVER Last administered on 03/25/16at 22:32; Start 03/24/16 at 16:45; Stop 03/26/16 at 09 :27; Status DC Acetaminophen (Tylenol) 650 mg Q6HP PRN PO MILD PAIN OR FEVER Last administered on 04/03/16at 05:07; Start 03/26/16 at 09:30; Stop 04/03/16 at 11: 26; Status DC Acetaminophen (Tylenol) 1,000 mg Q6HP PRN PO PAIN / FEVER Last administered on 04/06/16at 20:06; Start 04/03/16 at 11:30; Stop 05/03/16 at 11:29 Albuterol Sulfate (Proventil Neb) 2.5 mg Q4HP PRN NEB SOB/WHEEZING; Start at 17:00; Stop 03/25/16 at 11:45; Status DC Albuterol Sulfate (Proventil Neb) 2.5 mg RQ4H NEB Last administered on at 03:44; Start 03/28/16 at 12:00; Stop 03/31/16 at 07:01; Status DC Albuterol Sulfate (Proventil, Ventolin Hfa) 2 puff Q4H PRN INH SHORTNESS OF BREATH; Start 03/24/16 at 17:00; Stop 03/24/16 at 17:06; Status DC Albuterol/ Ipratropium (Duoneb (Ipr 0.5mg/Alb 2.5mg)) 3 ml Q2HP PRN NEB SOB/ WHEEZING Last administered on 03/28/16at 07:06; Start 03/25/16 at 11:45; Stop 03/28/16 at 10:54; Status DC Albuterol/ Ipratropium (Duoneb (Ipr 0.5mg/Alb 2.5mg)) 3 ml Q2HP PRN NEB SOB/ WHEEZING Last administered on 04/07/16at 03:24; Start 03/31/16 at 07:00; Stop 04/30/16 at 06:59 Albuterol/ Ipratropium (Duoneb (Ipr 0.5mg/Alb 2.5mg)) 3 ml RQID NEB Last administered on 04/07/16at 19:15; Start 03/31/16 at 08:00; Stop 04/30/16 at 07:59 Albuterol/ Ipratropium (Duoneb (Ipr 0.5mg/Alb 2.5mg)) 9 ml STK-MED ONCE As Ordered ; Start 03/24/16 at 13:22; Stop 03/24/16 at 13:23; Status DC Ascorbic Acid (Vitamin C) 500 mg BIDWM PO Last administered on 04/08/16at 07:54 ; Start 03/30/16 at 08:00; Stop 04/29/16 at 07:59 Aspirin (Ecotrin) 81 mg DAILY PO Last administered on 04/08/16at 07:54; Start 03/25/16 at 09:00; Stop 04/24/16 at 08:59 Atorvastatin Calcium (Lipitor) 40 mg DAILY PO Last administered on 04/08/16at 07:54; Start 03/25/16 at 09:00; Stop 04/24/16 at 08:59 Bisacodyl (Dulcolax) 10 mg Q12HP PRN [place] CONSTIPATION; Start 03/31/16 at 07:45; Stop 04/30/16 at 07:44 Ceftriaxone Sodium 2 gm 2 gm STK-MED ONCE As Ordered ; Start 03/24/16 at 15:28 ; Stop 03/24/16 at 15:29; Status DC Ceftriaxone Sodium/Dextrose (Rocephin/ Dextrose 5% Mini-Bag Plus) 50 ml @ 100 mls/hr Q24H IV Last administered on 04/05/16at 11:56; Start 03/28/16 at 12:00; Stop 04/06/16 at 08:55; Status DC Dabigatran (Pradaxa) 150 mg BID PO Last administered on 03/26/16at 10:06; Start 03/24/16 at 21:00; Stop 03/26/16 at 14:02; Status DC Dabigatran (Pradaxa) 150 mg BID PO Last administered on 04/08/16at 07:53; Start 03/27/16 at 09:00; Stop 04/10/16 at 08:59 Dextrose (Dextrose 50%) 25 ml ASDIRECTED PRN IV SEE LABEL COMMENTS; Start at 17:45; Stop 04/23/16 at 17:44 Docusate Sodium (Colace) 100 mg BIDP PRN PO CONSTIPATION Last administered on 04/08/16at 07:53; Start 03/26/16 at 09:30; Stop 04/25/16 at 09:29 Ferrous Sulfate (Ferrous Sulfate) 325 mg BID PO Last administered on at 07:53; Start 03/26/16 at 09:00; Stop 04/25/16 at 08:59 Fluticasone Propionate (Flonase 0.05% Nasal [place]) 2 spray DAILY PRN NA CONGESTION Last administered on 04/06/16at 20:03; Start 03/24/16 at 17:00; Stop 04/23/16 at 16:59 Furosemide (Lasix) 20 mg Q6H IV Last administered on 04/05/16at 06:06; Start at 18:00; Stop 04/05/16 at 10:55; Status DC Furosemide (Lasix) 40 mg DAILY@17 PO Last administered on 03/28/16at 15:59; Start 03/27/16 at 17:00; Stop 03/29/16 at 16:25; Status DC Furosemide (Lasix) 40 mg ONCE ONCE PO Last administered on 03/27/16at 12:47; Start 03/27/16 at 11:45; Stop 03/27/16 at 11:46; Status DC Furosemide (Lasix) 80 mg DAILY PO Last administered on 03/29/16at 08:13; Start 03/28/16 at 09:00; Stop 03/29/16 at 16:25; Status DC Furosemide/ Dextrose (Lasix/Dextrose 5%) 250 ml @ 10 mls/hr Q24H IV Last administered on 04/07/16at 11:31; Start 04/05/16 at 11:00; Stop 05/05/16 at 10:59 Glucagon 1 mg 1 mg ASDIRECTED PRN SC SEE LABEL COMMENTS; Start 03/24/16 at 17: 45; Stop 04/23/16 at 17:44 Glucose (Glucose) 16 GM ASDIRECTED PRN PO SEE LABEL COMMENTS; Start 03/24/16 at 17:45; Stop 04/23/16 at 17:44 Guaifenesin (Mucinex) 600 mg BID PRN PO CHEST CONGESTION; Start 03/24/16 at 17 :00; Stop 04/23/16 at 16:59 Home Med (Med Rec Complete!) ASDIRECTED XX ; Start 03/24/16 at 15:15; Stop at 15:15; Status DC Influenza Virus Vaccine (Fluzone High Dose) 0.5 ml ONCE ONCE IM Last administered on 03/26/16at 10:11; Start 03/26/16 at 09:00; Stop 03/26/16 at 09 :01; Status DC Insulin Human Lispro (HumaLOG INSULIN) SEE PROTOCOL TABLE AC SC Last administered on 04/08/16at 07:58; Start 03/25/16 at 07:30; Stop 04/24/16 at 07 :29 Insulin Human Lispro (HumaLOG INSULIN) SEE PROTOCOL TABLE QHS SC ; Start at 21:00; Stop 04/23/16 at 20:59 Iopamidol (Isovue-370 76%) 100 ml STK-MED ONCE As Ordered ; Start 04/03/16 at 07 :41; Stop 04/03/16 at 07:42; Status DC Lidocaine (Lidoderm Patch) 3 patch DAILY TD Last administered on 04/08/16at 07: 52; Start 04/03/16 at 09:00; Stop 05/03/16 at 08:59 Lisinopril (Prinivil) 2.5 mg DAILY PO ; Start 03/25/16 at 09:00; Stop at 09:00; Status DC Lisinopril 2.5 mg 2.5 mg DAILY PO Last administered on 03/28/16at 08:33; Start 03/27/16 at 09:00; Stop 03/28/16 at 11:06; Status DC Loratadine (Claritin) 10 mg DAILY PRN PO ALLERGIES Last administered on at 07:53; Start 03/24/16 at 17:00; Stop 04/23/16 at 16:59 Magnesium Hydroxide (Milk Of Magnesia) 30 ml Q4HP PRN PO CONSTIPATION Last administered on 04/08/16at 07:55; Start 03/31/16 at 07:45; Stop 04/30/16 at 07:44 Magnesium Sulfate/ Dextrose/IV Miscellaneous Supplies (Mag Sulf 1gm/ 100ml (Mag Run)) 100 ml @ 100 mls/hr ONCE ONCE IV Last administered on 03/25/16at 02:05 ; Start 03/25/16 at 02:00; Stop 03/25/16 at 02:59; Status DC Methylprednisolone (SOLUmedrol) 125 mg STK-MED ONCE As Ordered ; Start at 13:18; Stop 03/24/16 at 13:19; Status DC Metoprolol Tartrate (Lopressor) 12.5 mg BID PO Last administered on 03/27/16at 09:59; Start 03/25/16 at 21:00; Stop 03/27/16 at 16:55; Status DC Metoprolol Tartrate (Lopressor) 12.5 mg BID PO Last administered on 04/08/16at 07:53; Start 03/30/16 at 09:00; Stop 04/29/16 at 08:59 Metoprolol Tartrate (Lopressor) 25 mg BID PO ; Start 03/24/16 at 21:00; Stop 03/25/16 at 11:51; Status DC Metoprolol Tartrate 25 mg 25 mg BID PO ; Start 03/27/16 at 21:00; Stop at 11:06; Status DC Miscellaneous (Unresolved Patient Own Med Order) SEE LABEL COMMENTS UNRESOLVED XX Last administered on 04/03/16 18:33; Start 04/03/16 at 00:01; Stop at 20:41; Status DC Multivitamins (Theragram-M) 1 tab DAILY PO Last administered on 04/08/16 07: 54; Start 03/25/16 at 09:00; Stop 04/24/16 at 08:59 Non-Formulary Medication breo-ellipta pls resume home d... BID INH ; Start 04/03 at 21:00; Stop 04/03/16 at 21:00; Status DC Non-Formulary Medication ( See Comment Field Below ) REMOVE LIDODERM PATCHES DAILY@21 XX Last administered on 04/07/16 21:00; Start 04/03/16 at 21: 00; Stop 05/03/16 at 20:59 Nystatin (Mycostatin Powder, Nystop) apply under abd folds ... BID TOP Last administered on 04/07/16 21:26; Start 04/06/16 at 21:00; Stop 05/06/16 at 20:59 Ondansetron HCl (Zofran) 4 mg Q6HP PRN IV NAUSEA OR VOMITING Last administered on 04/06/16at 19:12; Start 03/24/16 at 16:45; Stop 04/23/16 at 16:44 Ondansetron HCl (Zofran) 4 mg STK-MED ONCE As Ordered ; Start 03/24/16 at 15:07 ; Stop 03/24/16 at 15:08; Status DC Oxycodone/ Acetaminophen (Percocet 5mg/ 325mg Tablet) 1 tab Q4HP PRN PO MODERATE PAIN (PS 5-7) Last administered on 04/08/16at 07:55; Start 03/24/16 at 16:45; Stop 04/14/16 at 16:44 Pantoprazole Sodium (Protonix) 40 mg DAILY PO Last administered on 04/08/16 07:54; Start 03/25/16 at 09:00; Stop 04/24/16 at 08:59 Patient Own Medication Breo-ellipta 200/25: ONE PUFF... DAILY INH Last administered on 04/07/16 08:00; Start 04/04/16 at 09:00; Stop 05/04/16 at 08:59 Piperacillin Sod/ Tazobactam Sod 3.375 gm/Dextrose 50 ml @ 50 mls/hr Q8H IV ; Start 03/24/16 at 17:00; Stop 03/24/16 at 17:00; Status DC Piperacillin Sod/ Tazobactam Sod/ Dextrose (Zosyn/Dextrose 5% Mini-Bag Plus) 50 ml @ 50 mls/hr Q8H IV Last administered on 03/28/16at 03:22; Start 03/24/16 at 20:00; Stop 03/28/16 at 10:07; Status DC Polyethylene Glycol (Miralax) 1 pkt DAILYPRN PRN PO CONSTIPATION Last administered on 04/03/16at 18:14; Start 03/31/16 at 07:45; Stop 04/30/16 at 07:44 Potassium Chloride (Micro-K Extencaps) 10 meq BID PO Last administered on at 21:17; Start 03/24/16 at 21:00; Stop 04/01/16 at 06:58; Status DC Potassium Chloride (Micro-K Extencaps) 20 meq BID PO Last administered on 04/08at 07:55; Start 04/01/16 at 09:00; Stop 05/01/16 at 08:59 Sodium Biphosphate/ Sodium Phosphate (Fleet Enema) 1 ENEMA Q12HP PRN FL CONSTIPATION; Start 03/31/16 at 07:45; Stop 04/30/16 at 07:44 Sodium Chloride (Nacl 0.9%) 1,000 ml @ 40 mls/hr Q24H IV Last administered on 03/25/16at 12:16; Start 03/24/16 at 16:43; Stop 03/26/16 at 09:26; Status DC Sodium Chloride (Saline Lock Flush) 2 ml ASDIRECTED PRN IV SEE LABEL COMMENTS; Start 03/27/16 at 05:15; Stop 04/26/16 at 05:14 Sodium Chloride (Saline Lock Flush) 2 ml SLF IV Last administered on 04/06/16at 13:11; Start 03/27/16 at 06:00; Stop 04/26/16 at 05:59 Tiotropium [place] 1 inhalation 1 inhalation DAILY@08 INH Last administered on 04/07/16at 08:00; Start 03/25/16 at 08:00; Stop 04/24/16 at 07:59 Vancomycin HCl 1000 mg/IV Miscellaneous Supplies 1 each/ Dextrose 270 ml @ 270 mls/hr Q8H IV ; Start 03/24/16 at 17:00; Stop 03/24/16 at 17:00; Status DC Vancomycin HCl 1000 mg/IV Miscellaneous Supplies 1 each/ Dextrose 270 ml @ 270 mls/hr Q8H IV Last administered on 03/27/16at 06:02; Start 03/24/16 at 21:00; Stop 03/27/16 at 13:22; Status DC Vancomycin HCl/IV Miscellaneous Supplies/Dextrose (Vancomycin HCl/ Adapter-Vial Mate/ Dextrose 5%) 270 ml @ 135 mls/hr Q8H IV Last administered on 03/28/16at 04:43; Start 03/27/16 at 13:00; Stop 03/28/16 at 10:07; Status DC Allergies Coded Allergies: Sulfa Drugs (Verified Allergy, Unknown, 08/02/12) Sulfa Drugs Cross Reactors (Verified Allergy, Unknown, 08/02/12) Heparin (Verified Adverse Reaction, Intermediate, HIT, 10/07/15) ROMEO LUNDBERG MD Apr 08, 2016 08:35
[2016-04-08] MEDS: TIOTROPIUM INHALER/CAPSULE (SPIRIVA) INH SCH (08:53)
[2016-04-08] MEDS: BREO ELLIPTA INH SCH (08:53)
[2016-04-08] MEDS: ONDANSETRON 4MG/2ML VIAL (J2405) IV PRN (09:08)
[2016-04-08] MEDS: NYSTATIN 100,000 UNITS/GM TOPICAL PWD 15 GM TOP SCH ×2 (09:08→21:17)
[2016-04-08] MEDS: FUROSEMIDE IV SCH (12:18)
[2016-04-08] MEDS: D5W IV SCH (12:18)
[2016-04-08 14:00] VITALS: BP 118/71
[2016-04-08] MEDS: MIRALAX *UNIT DOSE* 17GM PACKET PO PRN (16:27)
[2016-04-08 21:00] VITALS: BP 138/69
[2016-04-08] MEDS: **NOTE PATIENT COMMENT** MISC XX SCH (21:17)
[2016-04-09] MEDS: PERCOCET 5MG/325MG TAB PO PRN ×2 (00:54→16:45)
[2016-04-09] MEDS: SLF 3 ML SYR IV SCH ×3 (05:08→21:50)
[2016-04-09 05:35] VITALS: BP 132/71
[2016-04-09 05:54] LABS: BASO % 0.2 % (0.0-1.0); EOS # 0.2 K/mm3 (0.0-0.50); EOS % 2.7 % (0.0-3.0); LARGE UNSTAINED CELL # 0.2 K/mm3 (0.0-0.4); LYMPH # 0.9 K/mm3 (1.5-4.5); LYMPH % 9.7 % (24.0-44.0); MEAN CORPUSCULAR HEMOGLOBIN 28.4 pg (27.0-33.0); MEAN CORPUSCULAR HGB CONC 29.4 g/dl (32.0-36.5); MEAN CORPUSCULAR VOLUME 96.6 fl (80.0-96.0); MONO # 0.5 K/mm3 (0.0-0.8); MONO % 5.7 % (0.0-5.0); NEUTROPHILS # 6.9 K/mm3 (1.8-7.7); NEUTROPHILS % 79.7 % (36.0-66.0); PLATELET COUNT, AUTOMATED 183 k/mm3 (150-450); RED CELL DISTRIBUTION WIDTH 22.4 % (11.5-14.5); WHITE BLOOD COUNT 8.7 K/mm3 (4.0-10.0)
[2016-04-09 06:08] LABS: CALCIUM LEVEL 8.3 MG/DL (8.8-10.2); CREATININE FOR GFR 1.02 MG/DL (0.55-1.02); GLOMERULAR FILTRATION RATE 57.7 (>45); MAGNESIUM LEVEL 2.7 MG/DL (1.8-2.4); POTASSIUM SERUM 3.9 MEQ/L (3.5-5.1)
--- NOTE | 2016-04-09 07:04 | IPNPDOC ---
Assessment/Plan Date Seen The patient was seen on 04/09/16. Problems Problems: (1) Acute on chronic diastolic CHF (congestive heart failure) Status: Acute Problem Text: continue diuresis , daily weights. will change to lasix bolus to see if can get more negative balance. (2) Acute and chronic respiratory failure with hypoxia Status: Acute Problem Text: multifactorial due to CAP and diastolic chf exacerbation and fluid slowly improving with diuresis and antibiotics. (3) CAP (community acquired pneumonia) Status: Acute Problem Text: finished course on ceftriaxone. (4) Constipation Status: Resolved Problem Text: on bowel regimen (5) JANE (obstructive sleep apnea) Status: Chronic (6) Morbid obesity Status: Chronic (7) Diabetes Status: Chronic (8) Hypertension Status: Chronic (9) COPD (chronic obstructive pulmonary disease) Status: Chronic Problem Text: continue home meds. (10) CAD (coronary artery disease) Status: Chronic (11) Hyperlipidemia Status: Chronic (12) Mitral stenosis and incompetence Status: Chronic (13) Pulmonary hypertension Status: Chronic (14) Afib Status: Chronic Problem Text: on pradaxa Plan / VTE VTE Prophylaxis Ordered?: Yes Plan / Urinary Catheter Reason for insertion/continuin: Other-document below Subjective CC/HPI The patient is a 66-year-old female admitted with a reason for visit of Acute Respiratory Distress. Events since last encounter feels very weak and tired. continues to have about 1000 to 1200 negative balance daily however no change in weight. no fever or chills no chest pain , has intermittent episodes of SOB mostly at night. Objective General Exam: : Alert: No Acute Distress Eye Exam: : Conjunctiva & lids normal: EOMI: PERRLANo: Sclera icteric ENT Exam: : Atraumatic: Mucous membr. moist/pink: Pharynx Normal Neck Exam: : SuppleNo: JVD, thyromegaly Chest Exam: : Diminished Heart Exam: : Normal S1: Normal S2: Rate Normal: Regular Rhythm Abdomen Exam: : Normal bowel sounds: SoftNo: Hepatospenomegaly, Tenderness Extremity Exam: : Edema Vital Signs I&O Vital Sign - Last 24 Hours 04/08/16 04/08/16 04/08/16 04/08/16 07:53 07:55 09:00 14:00 Temp 98.2 Pulse 100 94 Resp 20 18 B/P 136/88 118/71 Pulse Ox 94 O2 Delivery Nasal Cannula Nasal Cannula O2 Flow Rate 4.0 3.0 04/08/16 04/08/16 04/08/16 04/08/16 19:36 21:00 21:00 21:17 Temp 98.3 Pulse 101 101 Resp 18 18 B/P 138/69 138/69 Pulse Ox 4 90 O2 Delivery Nasal Cannula Nasal Cannula Nasal Cannula O2 Flow Rate 4.0 3.0 04/09/16 04/09/16 04/09/16 00:54 01:24 05:35 Temp 96.4 Pulse 90 Resp 20 18 16 B/P 132/71 Pulse Ox 4 4 96 O2 Delivery Nasal Cannula Nasal Cannula Nasal Cannula O2 Flow Rate 3.0 I&O- Last 24 Hours up to 6 AM 04/09/16 06:00 Intake Total 1660 ml Output Total 1200 ml Balance 460 ml Laboratory Data Labs 24H Laboratory Tests 2 04/08/16 11:44: Bedside Glucose (Misc Panel) 111 04/08/16 16:31: Bedside Glucose (Misc Panel) 144H 04/08/16 20:57: Bedside Glucose (Misc Panel) 178H 04/09/16 05:38: Anion Gap 7L, White Blood Count 8.7, Red Blood Count 3.29L, Hemoglobin 9.4L, Hematocrit 31.8L, Mean Corpuscular Volume 96.6H, Mean Corpuscular Hemoglobin 28.4, Mean Corpuscular Hemoglobin Concent 29.4L, Red Cell Distribution Width 22.4H, Platelet Count 183, Neutrophils (%) (Auto) 79.7H, Lymphocytes (%) (Auto) 9.7L, Monocytes (%) (Auto) 5.7H, Eosinophils (%) (Auto) 2.7, Basophils (%) (Auto ) 0.2, Neutrophils # (Auto) 6.9, Lymphocytes # (Auto) 0.9L, Monocytes # (Auto) 0.5, Eosinophils # (Auto) 0.2, Basophils # (Auto) 0.0, Blood Urea Nitrogen 20H, Creatinine 1.02, Sodium Level 139, Potassium Level 3.9, Chloride Level 99, Carbon Dioxide Level 33H, Calcium Level 8.3L, Glomerular Filtration Rate 57.7, Large Unclassified Cells # 0.2, Large Unclassified Cells % 2.0, Magnesium Level 2.7H CBC/BMP Laboratory Tests 12/11/16 05:38 Calcium Level 8.3 L, Red Blood Count 3.29 L, Mean Corpuscular Volume 96.6 H, Mean Corpuscular Hemoglobin 28.4, Mean Corpuscular Hemoglobin Concent 29.4 L, Red Cell Distribution Width 22.4 H, Neutrophils (%) (Auto) 79.7 H, Lymphocytes ( %) (Auto) 9.7 L, Monocytes (%) (Auto) 5.7 H, Eosinophils (%) (Auto) 2.7, Basophils (%) (Auto) 0.2, Neutrophils # (Auto) 6.9, Lymphocytes # (Auto) 0.9 L, Monocytes # (Auto) 0.5, Eosinophils # (Auto) 0.2, Basophils # (Auto) 0.0 FSBS Laboratory Tests Test 04/08/16 11:44 04/08/16 16:31 04/08/16 20:57 Range/Units Bedside Glucose (Misc Panel) 111 144 178 80-115 MG/DL Current Medications Current Medications Current Medications Acetaminophen (Tylenol) 650 mg Q4HP PRN PO MILD PAIN OR FEVER Last administered on 03/25/16at 22:32; Start 03/24/16 at 16:45; Stop 03/26/16 at 09 :27; Status DC Acetaminophen (Tylenol) 650 mg Q6HP PRN PO MILD PAIN OR FEVER Last administered on 04/03/16at 05:07; Start 03/26/16 at 09:30; Stop 04/03/16 at 11: 26; Status DC Acetaminophen (Tylenol) 1,000 mg Q6HP PRN PO PAIN / FEVER Last administered on 04/06/16at 20:06; Start 04/03/16 at 11:30; Stop 05/03/16 at 11:29 Albuterol Sulfate (Proventil Neb) 2.5 mg Q4HP PRN NEB SOB/WHEEZING; Start at 17:00; Stop 03/25/16 at 11:45; Status DC Albuterol Sulfate (Proventil Neb) 2.5 mg RQ4H NEB Last administered on at 03:44; Start 03/28/16 at 12:00; Stop 03/31/16 at 07:01; Status DC Albuterol Sulfate (Proventil, Ventolin Hfa) 2 puff Q4H PRN INH SHORTNESS OF BREATH; Start 03/24/16 at 17:00; Stop 03/24/16 at 17:06; Status DC Albuterol/ Ipratropium (Duoneb (Ipr 0.5mg/Alb 2.5mg)) 3 ml Q2HP PRN NEB SOB/ WHEEZING Last administered on 03/28/16at 07:06; Start 03/25/16 at 11:45; Stop 03/28/16 at 10:54; Status DC Albuterol/ Ipratropium (Duoneb (Ipr 0.5mg/Alb 2.5mg)) 3 ml Q2HP PRN NEB SOB/ WHEEZING Last administered on 04/07/16at 03:24; Start 03/31/16 at 07:00; Stop 04/30/16 at 06:59 Albuterol/ Ipratropium (Duoneb (Ipr 0.5mg/Alb 2.5mg)) 3 ml RQID NEB Last administered on 04/08/16at 19:19; Start 03/31/16 at 08:00; Stop 04/30/16 at 07:59 Albuterol/ Ipratropium (Duoneb (Ipr 0.5mg/Alb 2.5mg)) 9 ml STK-MED ONCE As Ordered ; Start 03/24/16 at 13:22; Stop 03/24/16 at 13:23; Status DC Ascorbic Acid (Vitamin C) 500 mg BIDWM PO Last administered on 04/08/16at 16:34 ; Start 03/30/16 at 08:00; Stop 04/29/16 at 07:59 Aspirin (Ecotrin) 81 mg DAILY PO Last administered on 04/08/16at 07:54; Start 03/25/16 at 09:00; Stop 04/24/16 at 08:59 Atorvastatin Calcium (Lipitor) 40 mg DAILY PO Last administered on 04/08/16at 07:54; Start 03/25/16 at 09:00; Stop 04/24/16 at 08:59 Bisacodyl (Dulcolax) 10 mg Q12HP PRN ID CONSTIPATION; Start 03/31/16 at 07:45; Stop 04/30/16 at 07:44 Ceftriaxone Sodium 2 gm 2 gm STK-MED ONCE As Ordered ; Start 03/24/16 at 15:28 ; Stop 03/24/16 at 15:29; Status DC Ceftriaxone Sodium/Dextrose (Rocephin/ Dextrose 5% Mini-Bag Plus) 50 ml @ 100 mls/hr Q24H IV Last administered on 04/05/16at 11:56; Start 03/28/16 at 12:00; Stop 04/06/16 at 08:55; Status DC Dabigatran (Pradaxa) 150 mg BID PO Last administered on 03/26/16at 10:06; Start 03/24/16 at 21:00; Stop 03/26/16 at 14:02; Status DC Dabigatran (Pradaxa) 150 mg BID PO Last administered on 04/08/16at 21:16; Start 03/27/16 at 09:00; Stop 04/10/16 at 08:59 Dextrose (Dextrose 50%) 25 ml ASDIRECTED PRN IV SEE LABEL COMMENTS; Start at 17:45; Stop 04/23/16 at 17:44 Docusate Sodium (Colace) 100 mg BIDP PRN PO CONSTIPATION Last administered on 04/08/16at 07:53; Start 03/26/16 at 09:30; Stop 04/25/16 at 09:29 Ferrous Sulfate (Ferrous Sulfate) 325 mg BID PO Last administered on at 21:16; Start 03/26/16 at 09:00; Stop 04/25/16 at 08:59 Fluticasone Propionate (Flonase 0.05% Nasal [place]) 2 spray DAILY PRN NA CONGESTION Last administered on 04/06/16at 20:03; Start 03/24/16 at 17:00; Stop 04/23/16 at 16:59 Furosemide (Lasix) 20 mg Q6H IV Last administered on 04/05/16at 06:06; Start at 18:00; Stop 04/05/16 at 10:55; Status DC Furosemide (Lasix) 40 mg DAILY@17 PO Last administered on 03/28/16at 15:59; Start 03/27/16 at 17:00; Stop 03/29/16 at 16:25; Status DC Furosemide (Lasix) 40 mg ONCE ONCE PO Last administered on 03/27/16at 12:47; Start 11/28/16 at 11:45; Stop 03/27/16 at 11:46; Status DC Furosemide (Lasix) 80 mg DAILY PO Last administered on 03/29/16at 08:13; Start 03/28/16 at 09:00; Stop 03/29/16 at 16:25; Status DC Furosemide/ Dextrose (Lasix/Dextrose 5%) 250 ml @ 10 mls/hr Q24H IV Last administered on 04/08/16at 12:18; Start 04/05/16 at 11:00; Stop 05/05/16 at 10:59 Glucagon 1 mg 1 mg ASDIRECTED PRN SC SEE LABEL COMMENTS; Start 03/24/16 at 17: 45; Stop 04/23/16 at 17:44 Glucose (Glucose) 16 GM ASDIRECTED PRN PO SEE LABEL COMMENTS; Start 03/24/16 at 17:45; Stop 04/23/16 at 17:44 Guaifenesin (Mucinex) 600 mg BID PRN PO CHEST CONGESTION; Start 03/24/16 at 17 :00; Stop 04/23/16 at 16:59 Home Med (Med Rec Complete!) ASDIRECTED XX ; Start 03/24/16 at 15:15; Stop at 15:15; Status DC Influenza Virus Vaccine (Fluzone High Dose) 0.5 ml ONCE ONCE IM Last administered on 03/26/16at 10:11; Start 03/26/16 at 09:00; Stop 03/26/16 at 09 :01; Status DC Insulin Human Lispro (HumaLOG INSULIN) SEE PROTOCOL TABLE AC SC Last administered on 04/08/16at 16:34; Start 03/25/16 at 07:30; Stop 04/24/16 at 07 :29 Insulin Human Lispro (HumaLOG INSULIN) SEE PROTOCOL TABLE QHS SC ; Start at 21:00; Stop 04/23/16 at 20:59 Iopamidol (Isovue-370 76%) 100 ml STK-MED ONCE As Ordered ; Start 04/03/16 at 07 :41; Stop 04/03/16 at 07:42; Status DC Lidocaine (Lidoderm Patch) 3 patch DAILY TD Last administered on 04/08/16at 07: 52; Start 04/03/16 at 09:00; Stop 05/03/16 at 08:59 Lisinopril (Prinivil) 2.5 mg DAILY PO ; Start 03/25/16 at 09:00; Stop at 09:00; Status DC Lisinopril 2.5 mg 2.5 mg DAILY PO Last administered on 03/28/16at 08:33; Start 03/27/16 at 09:00; Stop 03/28/16 at 11:06; Status DC Loratadine (Claritin) 10 mg DAILY PRN PO ALLERGIES Last administered on at 07:53; Start 03/24/16 at 17:00; Stop 04/23/16 at 16:59 Magnesium Hydroxide (Milk Of Magnesia) 30 ml Q4HP PRN PO CONSTIPATION Last administered on 04/08/16at 07:55; Start 03/31/16 at 07:45; Stop 04/30/16 at 07:44 Magnesium Sulfate/ Dextrose/IV Miscellaneous Supplies (Mag Sulf 1gm/ 100ml (Mag [place])) 100 ml @ 100 mls/hr ONCE ONCE IV Last administered on 03/25/16at 02:05 ; Start 03/25/16 at 02:00; Stop 03/25/16 at 02:59; Status DC Methylprednisolone (SOLUmedrol) 125 mg STK-MED ONCE As Ordered ; Start at 13:18; Stop 03/24/16 at 13:19; Status DC Metoprolol Tartrate (Lopressor) 12.5 mg BID PO Last administered on 03/27/16at 09:59; Start 03/25/16 at 21:00; Stop 03/27/16 at 16:55; Status DC Metoprolol Tartrate (Lopressor) 12.5 mg BID PO Last administered on 04/08/16at 21:17; Start 03/30/16 at 09:00; Stop 04/29/16 at 08:59 Metoprolol Tartrate (Lopressor) 25 mg BID PO ; Start 03/24/16 at 21:00; Stop 03/25/16 at 11:51; Status DC Metoprolol Tartrate 25 mg 25 mg BID PO ; Start 03/27/16 at 21:00; Stop at 11:06; Status DC Miscellaneous (Unresolved Patient Own Med Order) SEE LABEL COMMENTS UNRESOLVED XX Last administered on 04/03/16at 18:33; Start 04/03/16 at 00:01; Stop at 20:41; Status DC Multivitamins (Theragram-M) 1 tab DAILY PO Last administered on 04/08/16at 07: 54; Start 03/25/16 at 09:00; Stop 04/24/16 at 08:59 Non-Formulary Medication breo-ellipta pls resume home d... BID INH ; Start 04/03 at 21:00; Stop 04/03/16 at 21:00; Status DC Non-Formulary Medication ( See Comment Field Below ) REMOVE LIDODERM PATCHES DAILY@21 XX Last administered on 04/08/16at 21:17; Start 04/03/16 at 21 :00; Stop 05/03/16 at 20:59 Nystatin (Mycostatin Powder, Nystop) apply under abd folds ... BID TOP Last administered on 04/08/16at 21:17; Start 04/06/16 at 21:00; Stop 05/06/16 at 20:59 Ondansetron HCl (Zofran) 4 mg Q6HP PRN IV NAUSEA OR VOMITING Last administered on 04/08/16at 09:08; Start 03/24/16 at 16:45; Stop 04/23/16 at 16:44 Ondansetron HCl (Zofran) 4 mg STK-MED ONCE As Ordered ; Start 03/24/16 at 15:07 ; Stop 03/24/16 at 15:08; Status DC Oxycodone/ Acetaminophen (Percocet 5mg/ 325mg Tablet) 1 tab Q4HP PRN PO MODERATE PAIN (PS 5-7) Last administered on 04/09/16at 00:54; Start 03/24/16 at 16:45; Stop 04/14/16 at 16:44 Pantoprazole Sodium (Protonix) 40 mg DAILY PO Last administered on 04/08/16at 07:54; Start 03/25/16 at 09:00; Stop 04/24/16 at 08:59 Patient Own Medication Breo-ellipta 200/25: ONE PUFF... DAILY INH Last administered on 04/08/16at 08:53; Start 04/04/16 at 09:00; Stop 05/04/16 at 08:59 Piperacillin Sod/ Tazobactam Sod 3.375 gm/Dextrose 50 ml @ 50 mls/hr Q8H IV ; Start 03/24/16 at 17:00; Stop 03/24/16 at 17:00; Status DC Piperacillin Sod/ Tazobactam Sod/ Dextrose (Zosyn/Dextrose 5% Mini-Bag Plus) 50 ml @ 50 mls/hr Q8H IV Last administered on 03/28/16at 03:22; Start 03/24/16 at 20:00; Stop 03/28/16 at 10:07; Status DC Polyethylene Glycol (Miralax) 1 pkt DAILYPRN PRN PO CONSTIPATION Last administered on 04/08/16at 16:27; Start 03/31/16 at 07:45; Stop 04/30/16 at 07:44 Potassium Chloride (Micro-K Extencaps) 10 meq BID PO Last administered on at 21:17; Start 03/24/16 at 21:00; Stop 04/01/16 at 06:58; Status DC Potassium Chloride (Micro-K Extencaps) 20 meq BID PO Last administered on 04/08at 21:16; Start 04/01/16 at 09:00; Stop 05/01/16 at 08:59 Sodium Biphosphate/ Sodium Phosphate (Fleet Enema) 1 ENEMA Q12HP PRN ID CONSTIPATION; Start 03/31/16 at 07:45; Stop 04/30/16 at 07:44 Sodium Chloride (Nacl 0.9%) 1,000 ml @ 40 mls/hr Q24H IV Last administered on 03/25/16at 12:16; Start 03/24/16 at 16:43; Stop 03/26/16 at 09:26; Status DC Sodium Chloride (Saline Lock Flush) 2 ml ASDIRECTED PRN IV SEE LABEL COMMENTS; Start 03/27/16 at 05:15; Stop 04/26/16 at 05:14 Sodium Chloride (Saline Lock Flush) 2 ml SLF IV Last administered on 04/06/16at 13:11; Start 03/27/16 at 06:00; Stop 04/26/16 at 05:59 Tiotropium Laura 1 inhalation 1 inhalation DAILY@08 INH Last administered on 04/08/16at 08:53; Start 03/25/16 at 08:00; Stop 04/24/16 at 07:59 Vancomycin HCl 1000 mg/IV Miscellaneous Supplies 1 each/ Dextrose 270 ml @ 270 mls/hr Q8H IV ; Start 03/24/16 at 17:00; Stop 03/24/16 at 17:00; Status DC Vancomycin HCl 1000 mg/IV Miscellaneous Supplies 1 each/ Dextrose 270 ml @ 270 mls/hr Q8H IV Last administered on 03/27/16at 06:02; Start 03/24/16 at 21:00; Stop 03/27/16 at 13:22; Status DC Vancomycin HCl/IV Miscellaneous Supplies/Dextrose (Vancomycin HCl/ Adapter-Vial Mate/ Dextrose 5%) 270 ml @ 135 mls/hr Q8H IV Last administered on 03/28/16at 04:43; Start 03/27/16 at 13:00; Stop 03/28/16 at 10:07; Status DC Allergies Coded Allergies: Sulfa Drugs (Verified Allergy, Unknown, 08/02/12) Sulfa Drugs Cross Reactors (Verified Allergy, Unknown, 08/02/12) Heparin (Verified Adverse Reaction, Intermediate, HIT, 10/07/15) ROMEO LUNDBERG MD Apr 09, 2016 07:03
[2016-04-09] MEDS: IPRATROPIUM 0.5MG/ALBUTEROL 2.5MG INH SOL UD 3ML (DUONEB)(J7620) NEB SCH ×4 (07:21→19:46)
[2016-04-09] MEDS: BREO ELLIPTA INH SCH (07:21)
[2016-04-09] MEDS: TIOTROPIUM INHALER/CAPSULE (SPIRIVA) INH SCH (07:21)
[2016-04-09] MEDS: FUROSEMIDE 40 MG/4 ML VIAL (J1940) IV SCH ×3 (07:23→18:27)
[2016-04-09] MEDS: HumaLOG INSULIN (NovoLOG) PER UNIT SC SCH ×4 (08:06→21:00)
[2016-04-09] MEDS: FERROUS SULFATE 325MG TAB PO SCH ×2 (08:07→21:41)
[2016-04-09] MEDS: ASCORBIC ACID 500 MG TAB PO SCH ×2 (08:07→16:45)
[2016-04-09] MEDS: LIDOCAINE 5% (LIDODERM) PATCH TD SCH (08:07)
[2016-04-09] MEDS: MULTIVITAMINS/MINERALS THERAP 1 TAB PO SCH (08:07)
[2016-04-09] MEDS: DOCUSATE SODIUM 100 MG CAP PO PRN ×2 (08:07→21:49)
[2016-04-09] MEDS: ASPIRIN 81 MG ENTERIC TAB PO SCH (08:07)
[2016-04-09] MEDS: ATORVASTATIN 20 MG TAB PO SCH (08:07)
[2016-04-09] MEDS: DABIGATRAN ETEXILATE 75 MG CAP (PRADAXA) PO SCH ×2 (08:07→21:41)
[2016-04-09] MEDS: LORATADINE 10 MG TAB PO PRN (08:08)
[2016-04-09] MEDS: METOPROLOL TART 12.5 MG PER 1/2 TAB PO SCH ×2 (08:08→21:42)
[2016-04-09] MEDS: POTASSIUM CHLORIDE 10 MEQ SR TABLET PO SCH ×2 (08:08→21:41)
[2016-04-09] MEDS: PANTOPRAZOLE 40MG TAB (PROTONIX) PO SCH (08:08)
[2016-04-09] MEDS: NYSTATIN 100,000 UNITS/GM TOPICAL PWD 15 GM TOP SCH ×2 (08:09→21:50)
[2016-04-09 14:00] VITALS: BP 127/61
[2016-04-09] MEDS: MIRALAX *UNIT DOSE* 17GM PACKET PO PRN ×2 (14:23→21:49)
[2016-04-09] MEDS: **NOTE PATIENT COMMENT** MISC XX SCH (21:00)
[2016-04-09 22:00] VITALS: BP 116/61
[2016-04-10] MEDS: FUROSEMIDE 40 MG/4 ML VIAL (J1940) IV SCH ×4 (00:04→18:05)
[2016-04-10] MEDS: PERCOCET 5MG/325MG TAB PO PRN ×4 (00:05→22:20)
[2016-04-10] MEDS: SLF 3 ML SYR IV SCH ×3 (05:17→20:57)
[2016-04-10 06:00] VITALS: BP 113/80
[2016-04-10 06:32] LABS: BASO % 0.3 % (0.0-1.0); EOS # 0.2 K/mm3 (0.0-0.50); EOS % 2.5 % (0.0-3.0); LARGE UNSTAINED CELL # 0.2 K/mm3 (0.0-0.4); LYMPH # 0.7 K/mm3 (1.5-4.5); LYMPH % 7.7 % (24.0-44.0); MEAN CORPUSCULAR HEMOGLOBIN 28.4 pg (27.0-33.0); MEAN CORPUSCULAR HGB CONC 29.2 g/dl (32.0-36.5); MEAN CORPUSCULAR VOLUME 97.3 fl (80.0-96.0); MONO # 0.6 K/mm3 (0.0-0.8); MONO % 6.6 % (0.0-5.0); NEUTROPHILS # 7.8 K/mm3 (1.8-7.7); NEUTROPHILS % 80.9 % (36.0-66.0); PLATELET COUNT, AUTOMATED 214 k/mm3 (150-450); RED CELL DISTRIBUTION WIDTH 22.3 % (11.5-14.5); WHITE BLOOD COUNT 9.6 K/mm3 (4.0-10.0)
[2016-04-10 06:36] LABS: CALCIUM LEVEL 8.7 MG/DL (8.8-10.2); CREATININE FOR GFR 1.06 MG/DL (0.55-1.02); GLOMERULAR FILTRATION RATE 55.2 (>45); MAGNESIUM LEVEL 2.8 MG/DL (1.8-2.4); POTASSIUM SERUM 4.5 MEQ/L (3.5-5.1)
[2016-04-10] MEDS: TIOTROPIUM INHALER/CAPSULE (SPIRIVA) INH SCH (07:28)
[2016-04-10] MEDS: IPRATROPIUM 0.5MG/ALBUTEROL 2.5MG INH SOL UD 3ML (DUONEB)(J7620) NEB SCH ×4 (07:28→20:00)
[2016-04-10] MEDS: BREO ELLIPTA INH SCH (07:28)
[2016-04-10] MEDS: PANTOPRAZOLE 40MG TAB (PROTONIX) PO SCH (08:10)
[2016-04-10] MEDS: ASCORBIC ACID 500 MG TAB PO SCH ×2 (08:10→17:28)
[2016-04-10] MEDS: POTASSIUM CHLORIDE 10 MEQ SR TABLET PO SCH ×2 (08:10→20:58)
[2016-04-10] MEDS: MULTIVITAMINS/MINERALS THERAP 1 TAB PO SCH (08:10)
[2016-04-10] MEDS: FERROUS SULFATE 325MG TAB PO SCH ×2 (08:10→20:58)
[2016-04-10] MEDS: ASPIRIN 81 MG ENTERIC TAB PO SCH (08:10)
[2016-04-10] MEDS: ATORVASTATIN 20 MG TAB PO SCH (08:10)
[2016-04-10] MEDS: LIDOCAINE 5% (LIDODERM) PATCH TD SCH (08:11)
[2016-04-10] MEDS: NYSTATIN 100,000 UNITS/GM TOPICAL PWD 15 GM TOP SCH ×2 (08:11→20:57)
[2016-04-10] MEDS: METOPROLOL TART 12.5 MG PER 1/2 TAB PO SCH ×2 (08:11→20:58)
[2016-04-10] MEDS: DABIGATRAN ETEXILATE 75 MG CAP (PRADAXA) PO SCH ×2 (08:11→20:57)
[2016-04-10] MEDS: HumaLOG INSULIN (NovoLOG) PER UNIT SC SCH ×4 (08:12→20:24)
[2016-04-10] MEDS: DOCUSATE SODIUM 100 MG CAP PO PRN ×2 (08:14→20:57)
--- NOTE | 2016-04-10 12:45 | IPN ---
DATE: 04/10/2016 SUBJECTIVE: Ms. Magaña is a 66-year-old female who was seen at the bedside. Patient denies chest pain, however, patient experience orthopnea and PND. Patient denies overnight issues. Patient denies fever, however, patient complained about pain and erythema on the medial side of her foot bilaterally as well as abdominal area. Patient expressed that she sleeps on her sides with elevation of the head and this is a chronic issue. OBJECTIVE: Vital signs: Temperature 97.5, pulse 84, respiratory rate 22, blood pressure 113/80, pulse oximetry 93% on 4 liters nasal cannula. Total intake from yesterday 1190 mL, total output 1400 mL. Today patient's weight is 169 kg and yesterday patient's weight was 168.4 kg. General appearance: Patient was awake, alert, oriented to time, place and person. HEENT: Normocephalic, atraumatic. Oral mucosal is moist. Neck: Soft, supple. Jugular venous distention (JVD) cannot be evaluated due to patient being morbidly obese. Lungs: Patient has clear breath sounds. No wheezing, rales. Heart: Normal S1, S2. Irregular. Abdomen: Morbidly obese, tender to palpation on the lower left and right abdominal quadrants. Patient has erythema area on her lower abdomen possibly related to skin infection (Candidemia). Positive bowel sounds in all quadrants. Extremities: Patient has pitting edema in both lower extremities, +2 pulses in both lower extremities. patient also has small area of erythema on the medial side of her feet which are painful to palpitation.however no skin break or lesions were noticed. LABORATORY DATA: White blood cells 9.6, red blood cells 3.21, hemoglobin 9.1, hematocrit 31.2, MCV 97.3, MCH 28.4, MCHC 29.2, RDW 22.3, platelet count 214. Neutrophil percentage 80.9, lymphocyte percentage 29.7, monocyte percentage 6.6, eosinophil percentage 2.5, basophil percentage 0.3, leukocyte percentage 2. Sodium 139, potassium 4.5, chloride 99, carbon dioxide 33, anion gap 7, BUN 19, creatinine 1.06. Glomerular filtration rate 55.2, fasting glucose 135, calcium 8.7, magnesium 2.8. ASSESSMENT AND PLAN: 1. Acute on chronic diastolic congestive heart failure. Patient has echocardiogram which was done on 03/28/2016 which shows borderline dilated left ventricle with mild to moderate left ventricle hypertrophy and/or at least mildly reduced left ventricle systolic function as well as mitral inflow pattern and tissue Doppler imaging review grade II diastolic dysfunction. At this time, patient will continue on Lasix 40 mg every 6 hours IV. Patient's in and out fluid shows patient has negative 210 for balance, however, it also shows that patient is gaining weight. I do not believe that the report is accurate. We will re-evaluate patient again tomorrow. Also will continue patient on current dosage of metoprolol tartrate. 2. Acute exacerbation of the dyspnea with hypoxia. This is multifactorial possibly related to community acquired pneumonia, diastolic congestive heart failure exacerbation as well as chronic obstructive pulmonary disease (COPD) exacerbation. Patient is on breathing treatment. Patient has finished a course of antibiotics. At this time, we will continue patient on Lasix. Patient is on 4 liters nasal cannula, however, patient's baseline is 3 liters. We will continue patient on the current medication. Re-evaluate patient again. 3. Community acquired pneumonia. Patient has finished a course of ceftriaxone. 4. Constipation. We will continue patient on Dulcolax 10 mg every 12 hours as needed constipation as well as Colace 100 mg twice daily as needed constipation. 5. Obstructive sleep apnea. This is a chronic issue. 6. Morbid obesity. This is a chronic issue. 7. Diabetes. Patient is on a sliding scale as well as diabetic diet. 8. Hypertension. At this time, patient's blood pressure is stable. Will continue patient on Lasix as well as Lopressor 12.5 mg twice daily by mouth. 9. Chronic obstructive pulmonary disease (COPD). Will continue patient on breathing treatments. At this time, patient is stable. Patient is on 4 liters nasal cannula. However, patient's baseline is 3 liters nasal cannula 24 hours, 7 days a week. 10. Coronary artery disease. Patient is on aspirin as well as Pradaxa. Patient is also on Lopressor and Lipitor. 11. Hyperlipidemia. We will continue patient on Lipitor. 12. Mitral stenosis. Patient is on Lasix 40 mg every 6 hours IV due to hypervolemia. He is also on beta alfreda. 13. Primary hypertension. This is a chronic issue. At this time, patient is stable. The echo which was done on 03/28/2016 was unable to estimate the central venous pressure and pulmonary artery pressure. patient is on ACEI. 14. Chronic atrial fibrillation. Will continue patient on aspirin and Pradaxa. Patient's rate is controlled. At this time, we will continue patient on the current dosage of beta alfreda. 15. Gastrointestinal reflux disease (GERD). We will continue patient on Protonix 40 mg daily. 16. Allergy. We will continue patient on Claritin 10 mg daily as needed allergies. However, at this time, patient does not have any allergy issues. 17. Anemia. We will continue patient on ferrous sulfate 325 mg by mouth twice daily. However, patient's hemoglobin has decreased to 9.1 and hematocrit has reduced to 31.2. This is possibly related to diuresis, however, we will continue monitoring patient. 18. Acute kidney injury possibly secondary to hypervolemia as well as medication (Lasix). We will continue monitoring patient's creatinine level as well as glomerular filtration rate. However, at this time, patient is stable. 19. Erythema/painful area of the feet bilaterally: I believe these are pressure caused erythema due to patient posture when she sleep. 20. Erythema of abdominal area: this possibly causes by candidemia. patient is on topical nystatin powder. My preceptor for this patient encounter was Dr. Chito Gray. The preceptor was physically present in the building during the encounter and was fully available. As needed, all aspects of the patient interview, examination, medical decision making process, and medical care plan development were reviewed and approved by the preceptor. The preceptor is aware and concurs with the plan as stated in the body of this note and will attest to such by his/her cosignature. ADELE
[2016-04-10 14:00] VITALS: BP 130/65
[2016-04-10] MEDS: MIRALAX *UNIT DOSE* 17GM PACKET PO PRN (20:57)
[2016-04-10] MEDS: **NOTE PATIENT COMMENT** MISC XX SCH (20:58)
[2016-04-10 22:00] VITALS: BP 127/59
[2016-04-11 01:03] VITALS: BP 130/60
[2016-04-11] MEDS: FUROSEMIDE 40 MG/4 ML VIAL (J1940) IV SCH ×4 (01:03→18:21)
[2016-04-11 06:00] VITALS: BP 135/67
[2016-04-11] MEDS: SLF 3 ML SYR IV SCH ×3 (06:00→21:19)
[2016-04-11 06:30] LABS: CALCIUM LEVEL 8.7 MG/DL (8.8-10.2); CREATININE FOR GFR 1.16 MG/DL (0.55-1.02); GLOMERULAR FILTRATION RATE 49.8 (>45); MAGNESIUM LEVEL 2.7 MG/DL (1.8-2.4); POTASSIUM SERUM 4.8 MEQ/L (3.5-5.1)
[2016-04-11] MEDS: LORATADINE 10 MG TAB PO PRN (06:31)
[2016-04-11 06:49] LABS: BASO % 0.3 % (0.0-1.0); EOS # 0.2 K/mm3 (0.0-0.50); EOS % 2.3 % (0.0-3.0); LARGE UNSTAINED CELL # 0.2 K/mm3 (0.0-0.4); LARGE UNSTAINED CELL % 2.1 % (0.0-4.0); LYMPH % 10.1 % (24.0-44.0); MEAN CORPUSCULAR HEMOGLOBIN 28.9 pg (27.0-33.0); MEAN CORPUSCULAR HGB CONC 29.3 g/dl (32.0-36.5); MEAN CORPUSCULAR VOLUME 98.3 fl (80.0-96.0); MONO # 0.6 K/mm3 (0.0-0.8); MONO % 6.3 % (0.0-5.0); NEUTROPHILS # 7.5 K/mm3 (1.8-7.7); NEUTROPHILS % 78.9 % (36.0-66.0); PLATELET COUNT, AUTOMATED 222 k/mm3 (150-450); RED CELL DISTRIBUTION WIDTH 22.5 % (11.5-14.5); WHITE BLOOD COUNT 9.5 K/mm3 (4.0-10.0)
[2016-04-11 06:58] LABS: ADD MORPHOLOGY? YES
[2016-04-11] MEDS: TIOTROPIUM INHALER/CAPSULE (SPIRIVA) INH SCH (07:10)
[2016-04-11] MEDS: BREO ELLIPTA INH SCH (07:11)
[2016-04-11] MEDS: IPRATROPIUM 0.5MG/ALBUTEROL 2.5MG INH SOL UD 3ML (DUONEB)(J7620) NEB SCH ×4 (07:13→19:47)
[2016-04-11 07:29] LABS: ANISOCYTOSIS 2+
[2016-04-11 07:30] LABS: POLYCHROMASIA 1+
[2016-04-11 07:31] LABS: HYPOCHROMASIA 1+
[2016-04-11] MEDS: HumaLOG INSULIN (NovoLOG) PER UNIT SC SCH ×4 (07:47→21:00)
[2016-04-11] MEDS: POTASSIUM CHLORIDE 10 MEQ SR TABLET PO SCH (07:48)
[2016-04-11] MEDS: ASCORBIC ACID 500 MG TAB PO SCH ×2 (07:48→17:05)
[2016-04-11] MEDS: MULTIVITAMINS/MINERALS THERAP 1 TAB PO SCH (07:48)
[2016-04-11] MEDS: DABIGATRAN ETEXILATE 75 MG CAP (PRADAXA) PO SCH ×2 (07:48→21:16)
[2016-04-11] MEDS: ASPIRIN 81 MG ENTERIC TAB PO SCH (07:48)
[2016-04-11] MEDS: PANTOPRAZOLE 40MG TAB (PROTONIX) PO SCH (07:49)
[2016-04-11] MEDS: LIDOCAINE 5% (LIDODERM) PATCH TD SCH (07:49)
[2016-04-11] MEDS: ATORVASTATIN 20 MG TAB PO SCH (07:49)
[2016-04-11] MEDS: FERROUS SULFATE 325MG TAB PO SCH ×2 (07:49→21:00)
[2016-04-11] MEDS: NYSTATIN 100,000 UNITS/GM TOPICAL PWD 15 GM TOP SCH ×2 (07:49→21:17)
[2016-04-11] MEDS: METOPROLOL TART 12.5 MG PER 1/2 TAB PO SCH ×2 (07:50→21:15)
[2016-04-11] MEDS: PERCOCET 5MG/325MG TAB PO PRN ×3 (09:37→22:39)
[2016-04-11] MEDS: SPIRONOLACTONE 25 MG TAB PO SCH ×2 (11:45→17:05)
[2016-04-11] MEDS: cefTRIAXone SOD 1 GM in D5W MINI-BAG PLUS 50 ML IV SCH (12:39)
--- NOTE | 2016-04-11 13:29 | IPN ---
DATE OF SERVICE: 04/11/2016 SUBJECTIVE: Ms. Magaña is a 66-year-old female who was seen and examined at the bedside. The patient complained about the pain in her lower extremities and erythema bilaterally, right more than left. The patient continues to be on 4 liters nasal cannula, and the patient has been experiencing orthopnea, as well as paroxysmal nocturnal dyspnea (PND). However, this is a chronic issue. OBJECTIVE: Vital signs: Temperature 97, pulse 65, respiratory rate 20, blood pressure 135/67, pulse oximetry 93% on 4 liters nasal cannula. Total intake from yesterday 1260 mL, total output 1350 mL. Balance of fluid -90 mL. General appearance: The patient was sitting on the chair, in no acute distress. The patient was awake, alert, and oriented to time, place, and person. HEENT: Normocephalic, atraumatic. . Lungs: The patient has mild crackles on the base of the lung and no wheezing or rales was noticed. Heart: Normal S1, S2. Irregular. Abdomen: Morbidly obese. Soft. Nontender. Bowel sounds in all quadrants. Also, the patient has erythema on the lower abdominal quadrants, possibly secondary to candidemia. Extremities: The patient has pitting edema in both lower extremities, +2 pulses in both lower extremities. The patient also has erythema on the prone side of the feet bilaterally, right more than left. It is warm and painful to palpation. LABORATORY DATA: Sodium 138, potassium 4.8, chloride 98, carbon dioxide 22, anion gap 8, BUN 20, creatinine 1.16, glomerular filtration rate 49.8, fasting glucose 133, calcium 8.7, magnesium 2.7. White blood cells 9.5, red blood cells 3.17, hemoglobin 9.2, hematocrit 31.2, MCV 98.3, MCH 28.9, MCHC 29.3, RDW 22.5, platelet count 222, neutrophil percentage 78.9, lymphocyte percentage 10.1, monocyte percentage 6.3, eosinophil percentage 2.3, basophil percentage 0.3, leukocyte percentage 2.1. ASSESSMENT AND PLAN: 1. Acute on chronic diastolic congestive heart failure. The echocardiogram which was done on 03/28/2016 shows borderline dilated left ventricle with mild to moderate left ventricle hypertrophy and/or at least mildly reduced left ventricle systolic function, as well as mitral inflow pattern, and the grade II diastolic dysfunction. At this time, we will continue the patient on Lasix 40 mg every 6 hours intravenous (IV). Yesterday, the patient has a low negative balance compared to day before. We have consulted Dr. Osuna. Dr. Osuna will manage the diuresis. 2. Acute exacerbations of the dyspnea and hypoxia. This is possibly multifactorial related to community-acquired pneumonia, diastolic congestive heart failure, chronic obstructive pulmonary disease (COPD) exacerbation, as well as cor. pulmonale/right heart failure. The patient is on breathing treatment. The patient has finished a course of antibiotic for possibility of community-acquired pneumonia. At this time, the patient is on Lasix. Dr. Osuna has been consulted, and he will manage the diuretic. The patient is on 4 liters nasal cannula, however, the patient's baseline is 3 liters nasal cannula. Will continue the patient on the current medication. 3. Community-acquired pneumonia. The patient has finished antibiotic course. 4. Constipation. Will continue the patient on Dulcolax. 5. Obstructive sleep apnea. This is a chronic issue. 6. Morbid obesity. This is a chronic issue. 7. Diabetes. The patient is on a sliding scale, as well as diabetic diet. 8. Hypertension. Will continue the patient on Lasix and Lopressor. 9. Chronic obstructive pulmonary disease (COPD). The patient is on breathing treatment. Also, at this time, the patient is on 4 liters nasal cannula. At this time, the patient is stable. 10. Coronary artery disease. The patient is on aspirin, as well as Pradaxa. The patient is also on Lopressor and Lipitor. 11. Hyperlipidemia. The patient is on Lipitor. 12. Mitral stenosis. The patient is on Lasix 40 mg every 6 hours IV due to hypervolemia. The patient is also on beta alfreda. 13. Primary hypertension. This is a chronic issue. At this time, the patient is stable. The echocardiogram which was done on 03/28/2016 shows it was unable to estimate central venous pressure. The patient has right heart failure. 14. Chronic atrial fibrillation. Will continue the patient on aspirin and Pradaxa. The patient's rate is controlled. Will continue also the patient on the current dosage of beta alfreda. 15. Gastrointestinal reflux disease (GERD). Will continue the patient on Protonix. 16. Allergy. Will continue the patient on Claritin as needed for allergy. However, at this time, the patient has no sign or symptoms of allergy. 17. Anemia. The patient on ferrous sulfate 325 mg twice a day. The patient's hemoglobin and hematocrit are stable. The patient had an occult blood test which is negative. 18. Acute kidney injury. This is possibly secondary to hypervolemia, as well as medications (Lasix and spironolactone). At this time, we have consulted Dr. Osuna, who will manage the diuretics and hypervolemia. 19. Erythema, periphery of the feet bilaterally. At this time, I have started the patient on ceftriaxone due to possibility of cellulitis on the right more than left. We will continue monitoring the patient for any abnormal symptoms. 20. Erythema of abdomen. This is possibly secondary to candidemia. The patient is on topical Nystatin powder. 21. Abnormal liver finding on a CT of the chest shows possibility of the liver cirrhosis. I have ordered a liver ultrasound, which will perform tomorrow morning. The patient will be nothing by mouth for a test tonight. However, at this time, the patient has normal level of the total bilirubin. Also, liver function is normal. Will continue to monitor the patient for any abnormal symptoms. My preceptor for this patient encounter was Dr. Chito Gray. The preceptor was physically present in the building during the encounter and was fully available. As needed, all aspects of the patient interview, examination, medical decision making process, and medical care plan development were reviewed and approved by the preceptor. The preceptor is aware and concurs with the plan as stated in the body of this note and will attest to such by his/her cosignature.
[2016-04-11 14:00] VITALS: BP 122/73
[2016-04-11] MEDS: MOM 30ML SUSPENSION UDC PO PRN (18:22)
[2016-04-11 19:48] VITALS: O2SAT 89
[2016-04-11] MEDS: **NOTE PATIENT COMMENT** MISC XX SCH (21:00)
[2016-04-11] MEDS: FLUTICASONE PROP 0.05% NASAL SPRAY 16 GM (FLONASE) PRN (21:17)
--- NOTE | 2016-04-11 21:39 | CR ---
DATE OF CONSULTATION: 04/11/2016 NEPHROLOGY CONSULTATION FOR: Dr. Chito Gray REASON FOR CONSULTATION: Worsening lower extremity edema and acute renal failure. HISTORY OF PRESENT ILLNESS: Mrs. Magaña is a 66-year-old morbidly obese female who was admitted to [facility] on 03/24/2016 due to worsening shortness of breath. She has known history of congestive heart failure, myocardial infarction, chronic obstructive pulmonary disease (COPD), morbid obesity and cirrhosis of liver by a recent CT scan. She is also known to have right-sided heart failure by her echocardiogram. She has developed worsening renal function while she has been diuresed. She also has significant bilateral lower extremity edema due to which nephrology consultation was requested today and the patient is seen this morning. PAST MEDICAL AND SURGICAL HISTORY: Significant for: 1. History of COPD with chronic oxygen dependency. 2. History of diastolic congestive heart failure. 3. History of right-sided heart failure. 4. History of obstructive sleep apnea. 5. History of coronary artery disease with prior myocardial infarction (CA), status post angioplasty with stents. 6. History of morbid obesity. 7. History of hypertension. 8. Dyslipidemia. 9. History of ischemic colon, status post colon resection. 10. Type 2 diabetes. MEDICATIONS: Home medications include Ventolin inhaler two puffs every 4 hours as needed for shortness of breath, aspirin 81 mg daily, atorvastatin 40 mg daily, Pradaxa 150 mg twice a day, Breo Ellipta one puff inhalation daily, Lasix 80 mg daily, Lasix 40 mg at night, lisinopril 20 mg daily, metformin 500 mg twice a day, metoprolol 25 mg twice a day, multivitamin one tablet daily, potassium chloride 10 mEq twice a day and Spiriva inhaler once day. PAST SURGICAL HISTORY: Significant for colon resection in 2009 for ischemic bowel, hiatal hernia repair times two, coronary artery angioplasty with stents and a right breast lumpectomy. PERSONAL AND SOCIAL HISTORY: The patient reports that she quit smoking last year. She denies any alcohol or drug use. FAMILY HISTORY: Negative for end-stage renal disease or coronary artery disease. REVIEW OF SYSTEMS: The patient denies any fever or chills. She reports that she is able to get up and walk a few steps at home; however, has not been able to get up here in the hospital. She reports about 50 pounds weight gain. Ears, nose and throat are unremarkable. She has chronic oxygen use. She denies any nosebleed. Cardiovascular system is significant for right-sided heart failure and lower extremity edema. Respiratory system is significant for COPD and obstructive sleep apnea. She denies any hemoptysis or pleuritic type of chest pain. GI system is negative for vomiting or abdominal pain. She has prior history of colon resection due to ischemic colon. system is significant for decreased urine output. She has a Osorio catheter in place. Musculoskeletal system is significant for massive edema on lower extremity. She has morbid obesity. She complains of pain in her right ankle. Skin has erythema on her lower extremities. Endocrine system is significant for diabetes. Hematological system is significant for chronic anticoagulation. Psychosocial system is negative for depression. Neurological system is negative for seizures. PHYSICAL EXAMINATION: This a morbidly obese female lying in the bed on her side. She is using oxygen via nasal cannula. Temperature 97.6 degrees Fahrenheit, heart rate 100 per minute and respiratory rate 18 per minute. Blood pressure 122/73 mmHg and oxygen saturation 90% on 4 liters oxygen. Neck veins are difficult to be assessed. Head is atraumatic. Ears, nose and throat are unremarkable. Heart sounds are tachycardiac, irregular and distant. Lungs have moderate bilateral air entry. Abdomen is obese and bowel sounds are present. No organomegaly could be palpated. Extremities have massive edema on both lower extremities with erythema around her ankles and lower legs. Right leg feels warmer to temperature compared with the left leg. Neurologically she is awake, alert and oriented times three. She has no focal neurological deficit. LABORATORY DATA: Her hemoglobin is between 9.1 and 9.4 for the last few days. WBC count is 9.5. Platelets are 222. Sodium is 138 and potassium 4.8. BUN 20 and creatinine 1.16. Glucose 133, calcium 8.7 and magnesium 2.7. Urinalysis done on 03/26/2016 showed only 1+ protein and no blood. She had a vancomycin level drawn on 03/26/2016 which was 21.7. She is currently not on vancomycin. PROBLEMS: 1. Acute kidney injury. Probably related to infection. She is still significantly volume overloaded. I would recommend to continue with diuresis and monitor her kidney function. She has a Osorio catheter in place, and I do not feel that there is any possibility of obstruction. I would recommend getting a CT scan of abdomen and pelvis if her condition does not improve. 2. Bilateral lower extremity edema. This probably related to volume overload. I am concerned about possibility of intra-abdominal problem causing lymphatic and venous obstruction. CT scan of abdomen and pelvis should be considered if feasible. I recommend to continue with IV Lasix 40 mg every 6 hours. I am going to add spironolactone 25 mg twice a day. 3. Right lower extremity cellulitis. I recommend considering antibiotic as she seems to have clinically cellulitis on her right lower extremity. I would suggest to avoid nephrotoxic medications including vancomycin and gentamicin. I thank you for involving me in the care of Mrs. Magaña. I will follow her along with you.
[2016-04-11 22:00] VITALS: BP 137/70
[2016-04-12] MEDS: cefTRIAXone SOD 1 GM in D5W MINI-BAG PLUS 50 ML IV SCH ×2 (00:37→12:01)
[2016-04-12] MEDS: FUROSEMIDE 40 MG/4 ML VIAL (J1940) IV SCH ×4 (00:38→19:02)
[2016-04-12] MEDS: SLF 3 ML SYR IV SCH ×3 (05:11→21:02)
[2016-04-12 06:00] VITALS: BP 106/82
[2016-04-12 07:07] LABS: BASO # 0.1 K/mm3 (0.0-0.2); BASO % 0.8 % (0.0-1.0); EOS # 0.2 K/mm3 (0.0-0.50); EOS % 1.9 % (0.0-3.0); LARGE UNSTAINED CELL # 0.1 K/mm3 (0.0-0.4); LARGE UNSTAINED CELL % 1.2 % (0.0-4.0); LYMPH # 0.7 K/mm3 (1.5-4.5); LYMPH % 6.5 % (24.0-44.0); MEAN CORPUSCULAR HEMOGLOBIN 28.5 pg (27.0-33.0); MEAN CORPUSCULAR HGB CONC 28.5 g/dl (32.0-36.5); MEAN CORPUSCULAR VOLUME 99.8 fl (80.0-96.0); MONO # 0.7 K/mm3 (0.0-0.8); MONO % 6.9 % (0.0-5.0); NEUTROPHILS # 7.7 K/mm3 (1.8-7.7); NEUTROPHILS % 82.6 % (36.0-66.0); PLATELET COUNT, AUTOMATED 231 k/mm3 (150-450); RED CELL DISTRIBUTION WIDTH 24.4 % (11.5-14.5); WHITE BLOOD COUNT 9.4 K/mm3 (4.0-10.0)
[2016-04-12 07:09] LABS: ADD MORPHOLOGY? YES
--- NOTE | 2016-04-12 07:10 | REPUSA ---
CLINICAL HISTORY: Hydronephrosis. Acute renal failure. TECHNIQUE: Multiple axial, sagittal and coronal CT images were obtained through the abdomen and pelvi s without administration of oral or IV contrast material. COMMENTS: Comparison is made to prior exam performed on 06/04/2015. No change in small left pleural effusion. No change in passive atelectatic airspace disease of the lower lobes more on the left. No change in moderate cardiomegaly. No change in small sliding hiatal hernia. No change in the hepatomegaly and irregularity of hepatic contour. Generalized body anasarca has increased. Moderate large bowel fecal stasis suggestive of constipation. There is no intra or extrahepatic biliary ductal dilatation. The spleen is normal. The pancreas is of normal contour and attenuation characteristics. There is no evidence of adrenal mass. The kidneys are normal in size, shape and configuration. No renal or ureteral calculi are identified. There is no hydroureter or hydronephrosis. There is no evidence for appendicitis. There is no bowel wall thickening. No evidence for small or la rge bowel obstruction. There is no evidence of intrinsic or extrinsic bladder mass. Images of the lung bases show no evidence of pleural or parenchymal mass. There are no pleural effusi ons. The bony structures are free of lytic or blastic lesions. Multilevel degenerative changes are seen in volving the thoracolumbar spine. Scattered calcifications are seen involving the aorta and major branches compatible with atherosclero sis. IMPRESSION: Increased ascites which remains mild. Increased anasarca. Indication cholelithiasis and diffuse thickening of the wall of the gallbladder. Additional chronic, unchanged findings. No hydronephrosis is seen. Thank you for your kind referral of this patient.
[2016-04-12 07:26] LABS: CALCIUM LEVEL 8.3 MG/DL (8.8-10.2); CREATININE FOR GFR 1.09 MG/DL (0.55-1.02); GLOMERULAR FILTRATION RATE 53.5 (>45); MAGNESIUM LEVEL 2.7 MG/DL (1.8-2.4); POTASSIUM SERUM 4.2 MEQ/L (3.5-5.1)
[2016-04-12] MEDS: PERCOCET 5MG/325MG TAB PO PRN ×2 (07:38→23:01)
[2016-04-12 08:00] LABS: ANISOCYTOSIS 3+; HYPOCHROMASIA 3+
[2016-04-12] MEDS: IPRATROPIUM 0.5MG/ALBUTEROL 2.5MG INH SOL UD 3ML (DUONEB)(J7620) NEB SCH ×4 (08:00→20:10)
[2016-04-12 08:01] LABS: TEAR DROP CELLS 1+
[2016-04-12 08:02] LABS: STOMATOCYTES 1+
[2016-04-12] MEDS: METOPROLOL TART 12.5 MG PER 1/2 TAB PO SCH ×2 (09:00→21:04)
[2016-04-12] MEDS: FERROUS SULFATE 325MG TAB PO SCH (09:00)
[2016-04-12 09:28] LABS: INR 1.97
--- NOTE | 2016-04-12 09:55 | REP ---
RIGHT UPPER QUADRANT SONOGRAPHY: HISTORY: Possible cirrhosis. Comparison CT study is from April 11, 2016. Comparison sonography July 17, 2001. FINDINGS: Scan quality is inhibited by patient body habitus and limited mobility. Scanning through right upper quadrant of the abdomen demonstrates shadowing calculi in the gallbladder and gallbladder wall thickening up to 0.7 cm in thickness. Common bile duct is normal measuring 0.6 cm in greatest diameter. There is evidence of mild fatty infiltration of the liver. Liver contour is slightly micronodular. No focal liver lesion is seen. The liver does not appear to be enlarged overall. Limited views of the pancreas show no abnormalities. Pancreas is partially obscured by gas and body habitus. No free fluid is seen although the CT study shows a small quantity of fluid. No right renal abnormality is seen. Right kidney measures 11.6 x 6.5 x 5.6 cm. IMPRESSION: Cholelithiasis with gallbladder wall thickening. Slightly irregular liver contour. No ascites seen by ultrasound. Signed by Gildardo Cage MD 04/12/2016 02:48 P
[2016-04-12] MEDS: HumaLOG INSULIN (NovoLOG) PER UNIT SC SCH ×4 (10:21→21:00)
[2016-04-12] MEDS: LIDOCAINE 5% (LIDODERM) PATCH TD SCH (10:23)
[2016-04-12] MEDS: ATORVASTATIN 20 MG TAB PO SCH (10:24)
[2016-04-12] MEDS: MULTIVITAMINS/MINERALS THERAP 1 TAB PO SCH (10:24)
[2016-04-12] MEDS: ASCORBIC ACID 500 MG TAB PO SCH ×2 (10:24→18:12)
[2016-04-12] MEDS: DABIGATRAN ETEXILATE 75 MG CAP (PRADAXA) PO SCH ×2 (10:24→21:02)
[2016-04-12] MEDS: ASPIRIN 81 MG ENTERIC TAB PO SCH (10:24)
[2016-04-12] MEDS: PANTOPRAZOLE 40MG TAB (PROTONIX) PO SCH (10:24)
[2016-04-12] MEDS: SPIRONOLACTONE 25 MG TAB PO SCH ×2 (10:24→18:12)
[2016-04-12] MEDS: NYSTATIN 100,000 UNITS/GM TOPICAL PWD 15 GM TOP SCH ×2 (10:29→21:04)
[2016-04-12] MEDS: DOCUSATE SODIUM 100 MG CAP PO PRN (10:29)
[2016-04-12] MEDS: MIRALAX *UNIT DOSE* 17GM PACKET PO PRN (10:29)
[2016-04-12] MEDS: LORATADINE 10 MG TAB PO PRN (10:29)
[2016-04-12] MEDS: TIOTROPIUM INHALER/CAPSULE (SPIRIVA) INH SCH (11:30)
[2016-04-12] MEDS: BREO ELLIPTA INH SCH (11:30)
[2016-04-12] MEDS: metOLazone 5 MG TAB PO SCH (12:01)
[2016-04-12 14:00] VITALS: BP 112/55
--- NOTE | 2016-04-12 16:48 | IPN ---
DATE: 04/12/2016 SUBJECTIVE: Ms. Magaña is a 66-year-old female who was seen and examined at the bedside. Patient continuing to complain about the pain in her lower extremities, right more than left, especially on the prone side of the foot bilaterally. Patient has erythema on both sides, right more than left, which we believe is caused by cellulitis on the right lower extremity; however, left lower extremity is asymptomatic at this time. Patient is on 4 liters nasal cannula. Patient expressed that if she lies down flat, she is developing orthopnea and paroxysmal nocturnal dyspnea (PND). Patient denies any overnight issues. Patient expressed that she is concerned about ferrous sulfate, and she believes that this medication is causing her to be in fluid overload, even though I spoke with her, and I explained that this is false; however, she persistently is asking for this medication to be held. OBJECTIVE: VITAL SIGNS: Temperature 97.2, pulse 63, respiratory rate 20, blood pressure 106/82, pulse oximetry 94 on 4 liters nasal cannula. Total intake 1350, total output 2200 mL. Patient has -850 mL. GENERAL APPEARANCE: Patient was sitting on the chair in no acute distress. Patient was awake, alert, and oriented to time, place, and person. HEENT: Normocephalic, atraumatic. LUNGS: Patient has mild crackles at the bases of her lungs. Good air movement. Patient did not have wheezing or rales. HEART: Normal S1, S2, irregular. ABDOMEN: Morbidly obese, soft, nontender. Positive bowel sounds in all quadrants. Patient has erythema on the lower abdominal quadrant. This is possibly secondary to candidemia. EXTREMITIES: Patient has pitting edema in both lower extremities, +2 pulses in both lower extremities. Patient has erythema on the prone side of the feet bilaterally, right more than left. The erythema is warm and painful to palpation on the right side; however, it is not painful to palpation on the left side. LABORATORY DATA: White blood cells 9.4, red blood cell 3.01, hemoglobin 8.6, hematocrit 30.1, MCV 99.8, MCH 28.5, MCHC 28.5, RDW 24.4, platelet count 231, neutrophil percentage 82.5, lymphocyte percentage 6.5, monocyte percentage 6.9, eosinophil percentage 1.9, basophil percentage 0.8, leukocyte percentage 1.2. Sodium 140, potassium 4.2, chloride 98, carbon dioxide 35, anion gap 7, BUN 24, creatinine 1.09, glomerular filtration rate 53.5, fasting glucose 130, calcium 8.3, magnesium 2.7. PT 22.5, INR 1.97. ASSESSMENT AND PLAN: 1. Acute exacerbation of the chronic diastolic congestive heart failure. Patient has grade 2 diastolic dysfunction. Patient is on Lasix 40 mg every 6 hours intravenously. We have consulted Dr. Ousna yesterday , who started the patient on spironolactone. Negative net fluid has increased compared to day before. Dr. Osuna will manage the diuresis. 2. Acute exacerbation of the dyspnea and hypoxia. This is multifactorial. At this time patient is on 4 liters nasal cannula; however, at baseline patient is on 2 liters nasal cannula. Patient is on breathing treatments. Also we are diuresing patient. Will continue monitoring patient for any abnormal symptoms. 3. Acute kidney injury. Dr. Osuna has been consulted. Patient has a Osorio in place and is functional. Patient was on Lasix; however, Dr. Osuna also started patient on spironolactone 25 mg twice a day and monitoring the kidney function. Due to significant volume overload, Dr. Osuna has ordered CT of abdomen, which showed increased ascites, which remains mild. Increased anasarca also indicated cholelithiasis and diffuse thickening of the wall of the gallbladder; however, no hydronephrosis was seen. At this point will continue with the current medication. Patient has finished a course of antibiotic. 4. Constipation. Patient is on Dulcolax. 5. Obstructive sleep apnea. This is a chronic issue. 6. Morbidly obese. This is a chronic issue. 7. Diabetes. Patient is on sliding scale as well as diabetes diet. 8. Hypertension Patient is on Lasix and Lopressor. Patient also started on spironolactone by Dr. Osuna. 9. Chronic obstructive pulmonary disease (COPD). Patient is on breathing treatment. At this time patient is on 4 liters nasal cannula; however, patient usually is on 3 liters at baseline. 10. Coronary artery disease. Patient is on aspirin and Pradaxa as well as Lipitor and Lopressor. 11. Hyperlipidemia. Patient is on Lipitor. 12. Mitral stenosis. Patient on Lasix. Also patient started on spironolactone. Patient is also on beta alfreda. 13. Pulmonary hypertension. This is a chronic issue. Patient is stable at this time. Patient has right heart failure. At this time will continue patient on Lasix as well as spironolactone. 14. Chronic atrial fibrillation. Patient is on aspirin and Pradaxa. Patient's rate is controlled. Patient is on beta alfreda as well. 15. Gastroesophageal reflux disease (GERD). Will continue patient on Protonix. 16. Allergies. Patient on Claritin as needed for allergy; however, patient does not have signs or symptoms of allergies. 17. Anemia. Patient is on ferrous sulfate 325 twice a day; however, patient expressed concern regarding this medication causing current symptoms of the patient. Even though I explained to her that ferrous sulfate is not causing her symptoms, she persistently requests this medication to be stopped. I told her that therefore we will hold the medication for two days, and we will recheck with the patient again. The patient also has decrease of hemoglobin and hematocrit. This is secondary to diuresis. 18. Bilateral lower extremity edema. CT of abdomen and pelvis, which was performed recently, did not show any obstruction. This is possibly related to volume overload. Patient was on Lasix; however, patient was started on spironolactone, and Dr. Osuna has been consulted. We will continue to monitor patient for any abnormal symptoms. 19. Abnormal liver function. CT of the chest, which was performed earlier, shows possibility of liver cirrhosis. I have ordered a liver ultrasound, which was performed this morning, which shows cholelithiasis and gallbladder wall thickening and a slight irregular liver contour. No ascites was seen on the ultrasound. Patient's PT is elevated; however, patient has a normal INR. Liver function which was performed on 04/07/2016 was negative. I will re-evaluate the liver function again tomorrow. My preceptor for this patient encounter was Dr. Chito Gray. The preceptor was physically present in the building during the encounter and was fully available as needed. All aspects of the patient interview, examination, medical decision making process, and medical care plan development were reviewed and approved by the preceptor. The preceptor is aware and concurs with the plan as stated in the body of this note and will attest to such by his/her co-signature.
--- NOTE | 2016-04-12 18:00 | IPN ---
DATE: 04/12/2016 SUBJECTIVE: Patient was seen and examined at the bedside today in the morning. She was sitting on the sofa. Patient is still short of breath. She is wearing nasal cannula. Her renal function is improving slightly with the diuresis, and her urine output is also improving since yesterday, but patient still complains of significant fluid overload. REVIEW OF SYSTEMS: Patient denies any fever, chills, rigors, headache, chest pain. She does report shortness of breath. Patient also reported abdominal distention, bloating, swelling of the legs, and inability to walk. OBJECTIVE: VITAL SIGNS: Temperature is 97.2 degrees Fahrenheit, blood pressure is 106/82, pulse is 63, respiratory rate of 18, saturating 94% on nasal cannula at 4 liters. Intake and output: Urine output recorded so far is 2200 mL yesterday and 600 mL so far today since overnight. Weight in the bed scale is 175.2 kg. PHYSICAL EXAMINATION: GENERAL: Patient is awake, alert, oriented times three, sitting in the sofa. She is morbidly obese. Wearing a nasal cannula. Mild respiratory distress at this time. HEAD AND NECK: Extraocular muscles intact. Pupils equally round and reactive to light. Neck is supple. I could not appreciate jugular venous distention (JVD) because of body habitus. CARDIOVASCULAR: S1, S2, irregular heart rate. No murmur, rub, or gallop. RESPIRATORY: Decreased breath sounds at the bases. No rales or rhonchi. ABDOMEN: Obese. Positive bowel sounds. I could not appreciate any organomegaly, but patient has significant pitting edema of the abdominal wall, and she has presacral edema as well. EXTREMITIES: Patient has edema of the bilateral lower extremities because of severe 3+ pitting edema, which goes all the way up to her thighs. I could not feel the pulses. CENTRAL NERVOUS SYSTEM: No focal neurological deficit. Power is 5/5 in all extremities. PSYCHIATRIC: Normal mood and affect. SKIN: Erythema of the bilateral feet. Apart from that, she does not have any other rashes or ulcers. LABORATORY REVIEW: CBC showed a WBC 9.4, hemoglobin 8.6, platelets are 231. INR is 1.97. BMP showed sodium 140, potassium 4.2, chloride 98, bicarbonate 35, BUN 24, creatinine 1.09, magnesium 2.7, calcium 8.3. IMAGING: CAT scan of the abdomen and pelvis was done yesterday, and it showed increased ascites, increased anasarca, cholelithiasis. No hydronephrosis of kidneys. Ultrasound of the liver was also done today. It showed cholelithiasis with gallbladder wall thickening. Slightly irregular liver contour. CURRENT MEDICATIONS: Patient's current medications were all reviewed by me. She is on Lasix 40 mg IV every 6 hours. I added metolazone 5 mg by mouth daily, and she was also started on spironolactone 25 mg by mouth twice a day yesterday. ASSESSMENT: A 66-year-old female who is morbidly obese. She has history of congestive heart failure, chronic obstructive pulmonary disease (COPD), morbid obesity, and cirrhosis of the liver. Nephrology service following the patient for management of fluid overload in the setting of chronic kidney disease. PLAN: 1. Acute kidney injury. Most likely cardiorenal syndrome. Patient's creatinine improved with mild diuresis yesterday. Continue the current diuresis. CAT scan of the abdomen did not show any obstruction. 2. Anasarca. Anasarca is secondary to a combination of congestive heart failure and cirrhosis. Continue Lasix 40 mg IV every 6 hours. Continue spironolactone 25 mg by mouth twice a day. I have added metolazone 5 mg by mouth daily for sequential nephron blockage and increased diuresis. If patient does not respond to this regimen of diuretics, then she will be placed on IV Lasix drip. 3. Lower extremity cellulitis. Patient is getting IV ceftriaxone at this time. Management is as per primary team. 4. Atrial fibrillation. It is okay to continue Pradaxa at this time. Patient is also on low-dose metoprolol 12.5 mg by mouth twice a day. Heart rate is controlled at this time. 5. Iron deficiency anemia. Patient is being treated for cellulitis at this time. I would not give her IV iron at this time. Once the infection is treated, patient will be given IV Venofer. No urgent need for any blood transfusion or Procrit at this time.
[2016-04-12 19:00] VITALS: BP 120/56
[2016-04-12 20:11] VITALS: O2SAT 93
[2016-04-12] MEDS: **NOTE PATIENT COMMENT** MISC XX SCH (21:00)
[2016-04-12 22:00] VITALS: BP 105/58
[2016-04-13 01:00] VITALS: BP 98/52
[2016-04-13] MEDS: FUROSEMIDE 40 MG/4 ML VIAL (J1940) IV SCH ×4 (01:00→18:58)
[2016-04-13] MEDS: cefTRIAXone SOD 1 GM in D5W MINI-BAG PLUS 50 ML IV SCH ×2 (01:02→12:12)
[2016-04-13 06:00] VITALS: BP 89/53
[2016-04-13] MEDS: SLF 3 ML SYR IV SCH ×3 (06:00→20:44)
[2016-04-13 06:02] LABS: CALCIUM LEVEL 8.4 MG/DL (8.8-10.2); CREATININE FOR GFR 1.05 MG/DL (0.55-1.02); GLOMERULAR FILTRATION RATE 55.8 (>45); MAGNESIUM LEVEL 2.7 MG/DL (1.8-2.4); POTASSIUM SERUM 3.6 MEQ/L (3.5-5.1)
[2016-04-13] MEDS: LORATADINE 10 MG TAB PO PRN (06:49)
[2016-04-13 06:55] VITALS: BP 132/75
[2016-04-13] MEDS: IPRATROPIUM 0.5MG/ALBUTEROL 2.5MG INH SOL UD 3ML (DUONEB)(J7620) NEB SCH ×4 (08:00→19:45)
[2016-04-13 08:11] LABS: ALBUMIN 2.9 GM/DL (3.2-5.2); ALBUMIN/GLOBULIN RATIO 0.78 (1.00-1.93); BILIRUBIN,TOTAL 0.6 MG/DL (0.2-1.0); CALCIUM LEVEL 8.2 MG/DL (8.8-10.2); CREATININE FOR GFR 1.06 MG/DL (0.55-1.02); GLOMERULAR FILTRATION RATE 55.2 (>45); MAGNESIUM LEVEL 2.7 MG/DL (1.8-2.4); POTASSIUM SERUM 3.7 MEQ/L (3.5-5.1); TOTAL PROTEIN 6.6 GM/DL (6.4-8.2)
[2016-04-13 08:24] LABS: BASO # 0.1 K/mm3 (0.0-0.2); BASO % 1.1 % (0.0-1.0); EOS # 0.2 K/mm3 (0.0-0.50); EOS % 2.4 % (0.0-3.0); LARGE UNSTAINED CELL # 0.2 K/mm3 (0.0-0.4); LARGE UNSTAINED CELL % 2.1 % (0.0-4.0); LYMPH # 0.8 K/mm3 (1.5-4.5); LYMPH % 7.1 % (24.0-44.0); MEAN CORPUSCULAR HEMOGLOBIN 28.5 pg (27.0-33.0); MEAN CORPUSCULAR HGB CONC 28.9 g/dl (32.0-36.5); MEAN CORPUSCULAR VOLUME 98.6 fl (80.0-96.0); MONO # 0.7 K/mm3 (0.0-0.8); MONO % 7.3 % (0.0-5.0); NEUTROPHILS # 7.3 K/mm3 (1.8-7.7); NEUTROPHILS % 80.1 % (36.0-66.0); PLATELET COUNT, AUTOMATED 225 k/mm3 (150-450); RED CELL DISTRIBUTION WIDTH 24.1 % (11.5-14.5)
[2016-04-13] MEDS: DABIGATRAN ETEXILATE 75 MG CAP (PRADAXA) PO SCH ×2 (08:29→20:40)
[2016-04-13] MEDS: ATORVASTATIN 20 MG TAB PO SCH (08:29)
[2016-04-13] MEDS: LIDOCAINE 5% (LIDODERM) PATCH TD SCH (08:29)
[2016-04-13] MEDS: PANTOPRAZOLE 40MG TAB (PROTONIX) PO SCH (08:29)
[2016-04-13] MEDS: ASPIRIN 81 MG ENTERIC TAB PO SCH (08:30)
[2016-04-13] MEDS: SPIRONOLACTONE 25 MG TAB PO SCH ×2 (08:30→17:46)
[2016-04-13] MEDS: METOPROLOL TART 12.5 MG PER 1/2 TAB PO SCH ×2 (08:30→20:40)
[2016-04-13] MEDS: HumaLOG INSULIN (NovoLOG) PER UNIT SC SCH ×4 (08:30→21:00)
[2016-04-13] MEDS: MULTIVITAMINS/MINERALS THERAP 1 TAB PO SCH (08:30)
[2016-04-13] MEDS: DOCUSATE SODIUM 100 MG CAP PO PRN (08:30)
[2016-04-13] MEDS: metOLazone 5 MG TAB PO SCH (08:30)
[2016-04-13] MEDS: ASCORBIC ACID 500 MG TAB PO SCH ×2 (08:30→17:46)
[2016-04-13] MEDS: NYSTATIN 100,000 UNITS/GM TOPICAL PWD 15 GM TOP SCH ×2 (08:31→20:43)
[2016-04-13] MEDS: BREO ELLIPTA INH SCH (08:51)
[2016-04-13] MEDS: TIOTROPIUM INHALER/CAPSULE (SPIRIVA) INH SCH (08:51)
[2016-04-13 10:16] LABS: ADD MORPHOLOGY? YES
[2016-04-13 10:54] LABS: ANISOCYTOSIS 3+; HYPOCHROMASIA 2+
[2016-04-13] MEDS: MIRALAX *UNIT DOSE* 17GM PACKET PO PRN (11:07)
[2016-04-13 14:00] VITALS: BP 114/55
--- NOTE | 2016-04-13 14:44 | IPN ---
DATE: 04/23/2016 Mrs. Magaña is seen this morning on her bedside. She is sitting in the chair and reports feeling better. However, still has pain in her legs and generalized edema. She denies any nausea or vomiting. Her dyspnea is at about baseline and she is using oxygen via nasal cannula. She is currently being diuresed due to massive generalized edema and also being treated for cellulitis on her lower extremities particularly on her right leg. PHYSICAL EXAMINATION: Morbidly obese lady sitting in the chair. Temperature is 96.5 degrees Fahrenheit, heart rate 88 per minute and respiratory rate 18 per minute. Blood pressure earlier today was 89/53; her most recent one is 132/79 mmHg and oxygen saturation 94% on 4 liters oxygen. Neck veins are mildly distended. Head is atraumatic. Pupils are equal and reactive to light and sclera is anicteric. Neck is supple and without any thyroid enlargement. Trachea is midline and there are no palpable cervical lymph nodes. This heart sounds are irregular in rhythm. Lungs with only moderate air entry bilaterally. Abdomen is morbidly obese. She has edema of abdominal wall and bowel sounds are present. Extremities have a 3+ to 4+ edema on both lower extremities with some erythema, which is more prominent on the right leg than the left leg. Neurologically, she is awake and alert without a focal deficit. Intake and output records from yesterday showed total intake 840 and output 3850 mL. Today's labs show white blood cell (WBC) count 9.0, hemoglobin 8.4 and hematocrit 29.2. Platelets 225. Sodium 141 and potassium 3.7. BUN is 23 and creatinine 1.06. CO2 is 36 today. PROBLEMS: 1. Acute renal failure. The patient has improved kidney function and stable now at about baseline. 2. Generalized edema and congestive heart failure. She is known to have systolic congestive heart failure by echocardiogram. However, she also has right-sided heart failure. She is being diuresed with a combination of IV Lasix, oral spironolactone and metolazone. At present, she is in need for ongoing diuresis and negative fluid balance. I have discussed with the patient the need for long-term management of her volume status. She will need to follow a low-sodium diet and fluid restriction of 1500 per day. Current diuretics are appropriate with a negative balance of about 2 liters per day. 3. Morbid obesity. I have discussed the weight issue with the patient at length and she understands the need for weight loss. She will try to follow her dietary restrictions as she is unable to exercise. 4. Anemia. She does have moderate anemia. She does not need a transfusion at this point. I will hold off on the use erythropoietin due to potential risk for fluid retention. Once her volume status is corrected, then we will consider to give her erythropoietin.
[2016-04-13 18:59] VITALS: BP 111/55
[2016-04-13] MEDS: FERROUS SULFATE 325MG TAB PO SCH (20:40)
[2016-04-13] MEDS: **NOTE PATIENT COMMENT** MISC XX SCH (20:43)
[2016-04-13 22:00] VITALS: BP 124/56
[2016-04-14] MEDS: cefTRIAXone SOD 1 GM in D5W MINI-BAG PLUS 50 ML IV SCH ×2 (01:16→13:44)
[2016-04-14] MEDS: FUROSEMIDE 40 MG/4 ML VIAL (J1940) IV SCH ×4 (01:17→17:59)
[2016-04-14] MEDS: PERCOCET 5MG/325MG TAB PO PRN ×3 (01:18→19:07)
[2016-04-14 06:00] VITALS: BP 114/50
[2016-04-14] MEDS: SLF 3 ML SYR IV SCH ×3 (06:22→20:04)
[2016-04-14 06:24] LABS: BASO % 0.2 % (0.0-1.0); EOS # 0.2 K/mm3 (0.0-0.50); EOS % 2.1 % (0.0-3.0); LARGE UNSTAINED CELL # 0.2 K/mm3 (0.0-0.4); LARGE UNSTAINED CELL % 2.1 % (0.0-4.0); LYMPH # 0.8 K/mm3 (1.5-4.5); LYMPH % 8.7 % (24.0-44.0); MEAN CORPUSCULAR HEMOGLOBIN 28.4 pg (27.0-33.0); MEAN CORPUSCULAR HGB CONC 28.9 g/dl (32.0-36.5); MEAN CORPUSCULAR VOLUME 98.4 fl (80.0-96.0); MONO # 0.7 K/mm3 (0.0-0.8); MONO % 7.2 % (0.0-5.0); NEUTROPHILS # 7.3 K/mm3 (1.8-7.7); NEUTROPHILS % 79.7 % (36.0-66.0); PLATELET COUNT, AUTOMATED 234 k/mm3 (150-450); WHITE BLOOD COUNT 9.1 K/mm3 (4.0-10.0)
[2016-04-14 06:45] LABS: ALBUMIN 2.7 GM/DL (3.2-5.2); ALBUMIN/GLOBULIN RATIO 0.64 (1.00-1.93); BILIRUBIN,TOTAL 0.6 MG/DL (0.2-1.0); CALCIUM LEVEL 8.4 MG/DL (8.8-10.2); GLOMERULAR FILTRATION RATE 59.1 (>45); MAGNESIUM LEVEL 2.3 MG/DL (1.8-2.4); POTASSIUM SERUM 3.1 MEQ/L (3.5-5.1); TOTAL PROTEIN 6.9 GM/DL (6.4-8.2)
[2016-04-14] MEDS: HumaLOG INSULIN (NovoLOG) PER UNIT SC SCH ×4 (07:30→21:00)
[2016-04-14] MEDS: TIOTROPIUM INHALER/CAPSULE (SPIRIVA) INH SCH (07:50)
[2016-04-14] MEDS: IPRATROPIUM 0.5MG/ALBUTEROL 2.5MG INH SOL UD 3ML (DUONEB)(J7620) NEB SCH ×4 (07:51→19:28)
[2016-04-14] MEDS: BREO ELLIPTA INH SCH (07:51)
[2016-04-14] MEDS: FERROUS SULFATE 325MG TAB PO SCH ×2 (09:02→19:59)
[2016-04-14] MEDS: PANTOPRAZOLE 40MG TAB (PROTONIX) PO SCH (09:02)
[2016-04-14] MEDS: METOPROLOL TART 12.5 MG PER 1/2 TAB PO SCH ×2 (09:02→20:00)
[2016-04-14] MEDS: ATORVASTATIN 20 MG TAB PO SCH (09:02)
[2016-04-14] MEDS: DABIGATRAN ETEXILATE 75 MG CAP (PRADAXA) PO SCH ×2 (09:02→19:59)
[2016-04-14] MEDS: ASPIRIN 81 MG ENTERIC TAB PO SCH (09:02)
[2016-04-14] MEDS: SPIRONOLACTONE 25 MG TAB PO SCH ×2 (09:02→17:59)
[2016-04-14] MEDS: MULTIVITAMINS/MINERALS THERAP 1 TAB PO SCH (09:02)
[2016-04-14] MEDS: ASCORBIC ACID 500 MG TAB PO SCH ×2 (09:02→17:59)
[2016-04-14] MEDS: LIDOCAINE 5% (LIDODERM) PATCH TD SCH (09:03)
[2016-04-14] MEDS: NYSTATIN 100,000 UNITS/GM TOPICAL PWD 15 GM TOP SCH ×2 (09:03→20:03)
[2016-04-14] MEDS: DOCUSATE SODIUM 100 MG CAP PO PRN (09:10)
[2016-04-14] MEDS: LORATADINE 10 MG TAB PO PRN (09:10)
[2016-04-14] MEDS: POTASSIUM CHLORIDE 10 MEQ SR TABLET PO SCH ×2 (09:10→20:03)
--- NOTE | 2016-04-14 10:21 | IPN ---
DATE: 04/13/2016 SUBJECTIVE: Ms. Magaña is a 66-year-old female who was seen and examined at bedside. Today patient was sad and she had one episode of crying because patient was notified that she has cirrhosis of the liver. Patient denies chest pain, however, patient expressed orthopnea and PND with lying flat. Patient is still on 4 liters nasal cannula. Patient denies overnight issues. Patient also expressed that there was a misunderstanding regarding ferrous sulfate and she would be interested to be started again on ferrous sulfate. OBJECTIVE: Vital signs: Temperature 96.5, pulse 89, respiratory rate 18, blood pressure 132/75, pulse oximetry 94 on 4 liters nasal cannula. General appearance: Patient was sitting in a chair, no acute distress. Patient was awake, alert, oriented to time, place and person. HEENT: Normocephalic, atraumatic. Heart: Normal S1, S2. Irregular. Lungs: Patient has fine crackles at the base of the lung. Good air movement. No wheezing or rales. Abdomen: Morbidly obese. Nontender to palpation. Positive bowel sounds in all quadrants. Patient has erythema on the lower abdominal quadrants. This is secondary to candidemia. Extremities: Patient has extremity pitting edema bilaterally, +2 pulses in both lower extremities. Patient has a erythema on the prone surface of the feet bilaterally, right more than left. Erythema area was tender to palpation, however it has decreased compared to yesterday. LABORATORY DATA: White blood cells 9, red blood cells 2.96, hemoglobin 8.4, hematocrit 29.2. MCV 98.6, MCH 28.5, MCHC 28.9, RDW 24.1, platelet count 225, neutrophil percentage 80.1, lymphocyte percentage 7.1, monocyte percentage 7.3, eosinophil percentage 2.4, basophil percentage 1.1, leukocyte percentage 2.1. Sodium 141, potassium 3.7, chloride 98, carbon dioxide 36, anion gap 7, BUN 23, creatinine 1.06, glomerular filtration rate 55.2, fasting glucose 125, calcium 8.2, magnesium 2.7, total bilirubin 0.6, AST 16, ALT 15, alkaline phosphatase 72 , total protein 6.6, albumin 2.9. ASSESSMENT AND PLAN: 1. Acute exacerbation of diastolic congestive heart failure. The patient had grade 2 diastolic dysfunction. At this time, patient is on Lasix 40 mg every 6 hours as well as spironolactone. Patient also was started on metolazone 5 mg by mouth daily by nephrology. At this time, patient as stable. 2. Acute exacerbation of the dyspnea and hypoxia. This is possibly multifactorial. At this time, patient is on 4 liters nasal cannula, however, patient's baseline is 3 liters nasal cannula. Patient is on breathing treatment. Also we will continue diuresing the patient. 3. Acute kidney injury. Nephrology has started patient on metolazone. Also patient is in Lasix and spironolactone. Patient's fluid balance was minus 3010 mL. However, patient is still hypervolemic. Diuresis controlled by radio repair teacher. 4. Constipation. Patient is on Dulcolax as well as MiraLax daily as needed constipation. Patient is also on Colace. 5. Obstructive sleep apnea. This is a chronic issue. 6. Morbid obesity. This is a chronic issue. We have spoke with the patient regarding weight loss and healthy diet. 7. Diabetes. The patient is on a sliding scale, as well as diabetic diet (consistent carbohydrate). 8. Hypertension. Patient is on Lasix and Lopressor. Patient is also started on spironolactone and metolazone by radio repair teacher. 9. Chronic obstructive pulmonary disease (COPD). The patient is on breathing treatment. Patient is on 4 liters nasal cannula. At this time, however, patient's baseline is 3 liters nasal cannula. 10. Coronary artery disease. The patient is on Plavix, aspirin, Lipitor and Lopressor. 11. Hyperlipidemia. The patient is on Lipitor. 12. Mitral stenosis. The patient is on Lasix as well as spironolactone and beta alfreda. 13. Primary hypertension. This is a chronic issue. We will continue patient on Lasix and spironolactone and metolazone. 14. Chronic atrial fibrillation. Continue the patient on aspirin and Pradaxa. The patient's rate is controlled. Will continue patient on beta alfreda. 15. Gastrointestinal reflux disease (GERD). Will continue the patient on Protonix. 16. Allergy. Patient is on Claritin as needed for allergy. However, at this time, the patient is stable. 17. Anemia. Will continue patient on ferrous sulfate 325 mg twice a day. Also patient is on laxatives for constipation. 18. Bilateral lower extremity edema. CT of abdomen and pelvis which was performed did not show any obstruction. This is possibly hypovolemia related. Patient is managed by radio repair teacher. At this time, patient is on Lasix, spironolactone, metolazone. 19. Abnormal liver function. CT scan of the abdomen and pelvis is concerning for liver cirrhosis. Liver ultrasound performed yesterday which shows cholelithiasis and gallbladder wall thickening and irregular liver contour. No ascites was seen on the ultrasound. Patient has elevated PT, however, INR is normal. Liver function test on 04/07/2016 was negative. Also the liver function test which was performed today was negative. Patient can be followed as outpatient for re-evaluation of the liver. My preceptor for this patient encounter was Dr. Michelle Montgomery. The preceptor was physically present in the building during the encounter and was fully available. As needed, all aspects of the patient interview, examination, medical decision making process, and medical care plan development were reviewed and approved by the preceptor. The preceptor is aware and concurs with the plan as stated in the body of this note and will attest to such by his/her cosignature. I have both independently examined this patient as well as reviewed the note. I have discussed in detail with the resident the findings and plan of treatment as documented in the residents note. I will continue to follow the patient and offer further guidance to the patients care as necessary during this hospital stay. Michelle ANGULO
[2016-04-14] MEDS: AcetaZOLAMIDE 250 MG TAB PO SCH ×2 (10:57→19:59)
[2016-04-14 14:00] VITALS: BP 115/69
--- NOTE | 2016-04-14 18:01 | IPN ---
DATE: 04/14/2016 Mrs. Magaña is seen this morning on her bedside. She is sitting in the chair and reports feeling better. The patient feels that her legs are not as swollen or painful as they were a couple of days ago. Her dyspnea is improving. She denies any nausea or vomiting. She is being diuresed with a combination of diuretics and has responded very well over the last few days. PHYSICAL EXAMINATION: Temperature 97.5 degrees Fahrenheit, heart rate 100 per minute and respiratory rate 18 per minute. Blood pressure 114/50 mmHg and oxygen saturation 93% on 4 liters oxygen. Intake and output records from yesterday showed total intake 720 and output 5350 mL with a negative fluid balance of about 4.3 liters. Her weight is down to 171 kg while she was 175.4 kg on 04/11/2016. Her neck veins are difficult to be assessed sitting upright. She is using oxygen via nasal cannula. Head is atraumatic. Ears, nose and throat are unremarkable. Pupils are equal and reactive to light and sclera is anicteric. Neck is supple and there is no thyroid enlargement or abnormal cervical lymph nodes. Heart sounds are tachycardiac and irregular. Lungs have diminished breath sounds at bases. Abdomen is obese and nontender. There is significant edema of abdominal wall. Bowel sounds are normal. Extremities have no cyanosis or clubbing. She has significant edema of lower extremities. Skin has erythema on both lower legs. Neurologically, she is awake, alert and oriented times three. She has no focal neurological deficit. Today's labs show WBC count 9.1, hemoglobin 8.1 and hematocrit 28.1. Sodium 139 and potassium 3.1. CO2 is 40 and chloride 94. BUN 21 and creatinine 1.0. PROBLEMS: 1. Decompensated congestive heart failure. The patient has right-sided congestive heart failure in addition to systolic congestive heart failure. At present, she remains quite decompensated, though she is diuresing very well. We would like to continue with negative fluid balance. However, the rate will need to be slowed down due to development of metabolic alkalosis and hypokalemia. I am stopping her metolazone, and we will continue with furosemide and spironolactone as previously. Acetazolamide 500 mg twice a day is being added. I have discussed this with the patient. She does not feel that she has a true allergy to sulfa. She reports that when she was 8 or 9 years old, her parents told her about possible sulfa allergy; however, she never had any problems through her life. I have also discussed with the pharmacy, and we will go ahead and give her acetazolamide while she is being monitored here in the hospital. If she has any possible allergic reactions, we will certainly stop it. 2. Hypokalemia. This is related to aggressive diuresis. The patient will continue with spironolactone 25 mg twice a day. Her metolazone is being stopped and we will add potassium chloride 40 mEq twice a day. Her electrolytes are being monitored on a daily basis. 3. Morbid obesity. I have discussed with the patient about her weight issue, and she understands that she needs to keep a strict control on her diet and try to lose weight more aggressively. At present, she is trying to cut down on her caloric intake. 4. Cellulitis lower extremities. Her cellulitis is improving, and she remains on intravenous antibiotics, including ceftriaxone.
[2016-04-14] MEDS: **NOTE PATIENT COMMENT** MISC XX SCH (20:04)
[2016-04-14 22:00] VITALS: BP 106/55
[2016-04-15 01:00] VITALS: BP 98/64
[2016-04-15] MEDS: FUROSEMIDE 40 MG/4 ML VIAL (J1940) IV SCH ×4 (01:00→18:11)
[2016-04-15] MEDS: cefTRIAXone SOD 1 GM in D5W MINI-BAG PLUS 50 ML IV SCH ×2 (01:29→14:10)
[2016-04-15] MEDS: SLF 3 ML SYR IV SCH ×3 (05:42→21:02)
[2016-04-15 06:00] VITALS: BP 120/65
[2016-04-15 06:40] LABS: BASO # 0.1 K/mm3 (0.0-0.2); BASO % 0.9 % (0.0-1.0); EOS # 0.2 K/mm3 (0.0-0.50); LARGE UNSTAINED CELL # 0.2 K/mm3 (0.0-0.4); LARGE UNSTAINED CELL % 2.1 % (0.0-4.0); LYMPH # 0.9 K/mm3 (1.5-4.5); LYMPH % 7.7 % (24.0-44.0); MEAN CORPUSCULAR HEMOGLOBIN 28.5 pg (27.0-33.0); MEAN CORPUSCULAR VOLUME 101.8 fl (80.0-96.0); MONO # 0.6 K/mm3 (0.0-0.8); MONO % 6.8 % (0.0-5.0); NEUTROPHILS # 7.5 K/mm3 (1.8-7.7); NEUTROPHILS % 80.5 % (36.0-66.0); PLATELET COUNT, AUTOMATED 237 k/mm3 (150-450); RED CELL DISTRIBUTION WIDTH 22.8 % (11.5-14.5); WHITE BLOOD COUNT 9.2 K/mm3 (4.0-10.0)
[2016-04-15 06:53] LABS: ALBUMIN 2.7 GM/DL (3.2-5.2); ALBUMIN/GLOBULIN RATIO 0.66 (1.00-1.93); BILIRUBIN,TOTAL 0.5 MG/DL (0.2-1.0); CALCIUM LEVEL 8.6 MG/DL (8.8-10.2); GLOMERULAR FILTRATION RATE 59.1 (>45); POTASSIUM SERUM 3.2 MEQ/L (3.5-5.1); TOTAL PROTEIN 6.8 GM/DL (6.4-8.2)
[2016-04-15] MEDS: BREO ELLIPTA INH SCH (07:24)
[2016-04-15] MEDS: TIOTROPIUM INHALER/CAPSULE (SPIRIVA) INH SCH (07:25)
[2016-04-15] MEDS: IPRATROPIUM 0.5MG/ALBUTEROL 2.5MG INH SOL UD 3ML (DUONEB)(J7620) NEB SCH ×4 (07:26→19:16)
[2016-04-15] MEDS: HumaLOG INSULIN (NovoLOG) PER UNIT SC SCH ×4 (08:13→20:54)
[2016-04-15] MEDS: MULTIVITAMINS/MINERALS THERAP 1 TAB PO SCH (09:05)
[2016-04-15] MEDS: ATORVASTATIN 20 MG TAB PO SCH (09:05)
[2016-04-15] MEDS: ASCORBIC ACID 500 MG TAB PO SCH ×2 (09:06→16:51)
[2016-04-15] MEDS: POTASSIUM CHLORIDE 10 MEQ SR TABLET PO SCH ×3 (09:06→21:00)
[2016-04-15] MEDS: AcetaZOLAMIDE 250 MG TAB PO SCH ×2 (09:06→21:00)
[2016-04-15] MEDS: SPIRONOLACTONE 25 MG TAB PO SCH ×2 (09:06→16:50)
[2016-04-15] MEDS: FERROUS SULFATE 325MG TAB PO SCH ×2 (09:06→21:00)
[2016-04-15] MEDS: METOPROLOL TART 12.5 MG PER 1/2 TAB PO SCH ×2 (09:06→20:59)
[2016-04-15] MEDS: LIDOCAINE 5% (LIDODERM) PATCH TD SCH (09:07)
[2016-04-15] MEDS: DABIGATRAN ETEXILATE 75 MG CAP (PRADAXA) PO SCH ×2 (09:07→21:00)
[2016-04-15] MEDS: NYSTATIN 100,000 UNITS/GM TOPICAL PWD 15 GM TOP SCH ×2 (09:07→21:02)
[2016-04-15] MEDS: ASPIRIN 81 MG ENTERIC TAB PO SCH (09:07)
[2016-04-15] MEDS: PANTOPRAZOLE 40MG TAB (PROTONIX) PO SCH (09:07)
[2016-04-15] MEDS: LORATADINE 10 MG TAB PO PRN (09:09)
--- NOTE | 2016-04-15 11:28 | IPNPDOC ---
Assessment/Plan Date Seen The patient was seen on 04/15/16. Problems Problems: (1) Anasarca Status: Acute Problem Text: due to diastolic congestive heart failure. on multiple diuretics. (2) Acute on chronic diastolic CHF (congestive heart failure) Status: Acute Problem Text: continue diuresis , daily weights. on lasix, diamox and spironolactone. (3) Acute and chronic respiratory failure with hypoxia Status: Acute Problem Text: multifactorial due to CAP and diastolic chf exacerbation and fluid slowly improving with diuresis and antibiotics. (4) CAP (community acquired pneumonia) Status: Resolved Problem Text: finished course on ceftriaxone. (5) Constipation Status: Resolved Problem Text: on bowel regimen (6) JANE (obstructive sleep apnea) Status: Chronic (7) Morbid obesity Status: Chronic (8) Diabetes Status: Chronic (9) Hypertension Status: Chronic (10) COPD (chronic obstructive pulmonary disease) Status: Chronic Problem Text: continue home meds. (11) CAD (coronary artery disease) Status: Chronic (12) Hyperlipidemia Status: Chronic (13) Mitral stenosis and incompetence Status: Chronic (14) Pulmonary hypertension Status: Chronic (15) Afib Status: Chronic Problem Text: on pradaxa (16) Cellulitis Status: Acute Problem Text: on ceftriaxone (17) Chronic anemia Status: Chronic (18) Allergy Status: Chronic Problem Text: continue loratidine Plan / VTE VTE Prophylaxis Ordered?: Yes Plan / Urinary Catheter Reason for insertion/continuin: Other-document below Subjective Review of Systems CC/HPI The patient is a 66-year-old female admitted with a reason for visit of Acute Respiratory Distress. Events since last encounter Having good negative balance, denies any shortness of breath , leg swelling improving still with pain and tenderness no chest pain or cough , no abdominal pain , nausea or vomiting. Objective Physical Examination General Exam: Positive: Alert, No Acute Distress Eye Exam: Positive: Conjunctiva & lids normal, EOMI, PERRLA, Negative: Sclera icteric ENT Exam: Positive: Atraumatic, Mucous membr. moist/pink, Pharynx Normal Neck Exam: Positive: Supple, Negative: JVD, thyromegaly Chest Exam: Positive: Diminished Heart Exam: Positive: Normal S1, Normal S2, Rate Normal, Regular Rhythm Abdomen Exam: Positive: Normal bowel sounds, Soft, Negative: Hepatospenomegaly, Tenderness Extremity Exam: Positive: Edema Vital Signs/I&O Vital Signs Date Time Temp Pulse Resp B/P Pulse Ox O2 Delivery O2 Flow Rate FiO2 04/15/16 06:00 97.5 74 23 120/65 98 Nasal Cannula 4.0 I&O- Last 24 Hours up to 6 AM 04/15/16 06:00 Intake Total 1200 ml Output Total 4875 ml Balance -3675 ml Laboratory Data Labs 24H Laboratory Tests 2 04/15/16 05:31: Blood Urea Nitrogen 22H, Creatinine 1.00, Sodium Level 140, Potassium Level 3.2L , Chloride Level 95L, Carbon Dioxide Level 37H, Calcium Level 8.6L, Aspartate Amino Transf (AST/SGOT) 14L, Alanine Aminotransferase (ALT/SGPT) 13, Alkaline Phosphatase 72, Total Bilirubin 0.5, Total Protein 6.8, Albumin 2.7L, Albumin/ Globulin Ratio 0.66L, Anion Gap 8, White Blood Count 9.2, Red Blood Count 2.81L , Hemoglobin 8.0L, Hematocrit 28.6L, Mean Corpuscular Volume 101.8H, Mean Corpuscular Hemoglobin 28.5, Mean Corpuscular Hemoglobin Concent 28.0L, Red Cell Distribution Width 22.8H, Platelet Count 237, Neutrophils (%) (Auto) 80.5H , Lymphocytes (%) (Auto) 7.7L, Monocytes (%) (Auto) 6.8H, Eosinophils (%) (Auto ) 2.0, Basophils (%) (Auto) 0.9, Neutrophils # (Auto) 7.5, Lymphocytes # (Auto) 0.9L, Monocytes # (Auto) 0.6, Eosinophils # (Auto) 0.2, Basophils # (Auto) 0.1, Glomerular Filtration Rate 59.1, Large Unclassified Cells # 0.2, Large Unclassified Cells % 2.1 CBC/BMP Laboratory Tests 04/15/16 05:31 Calcium Level 8.6 L, Aspartate Amino Transf (AST/SGOT) 14 L, Alanine Aminotransferase (ALT/SGPT) 13, Alkaline Phosphatase 72, Total Bilirubin 0.5, Total Protein 6.8, Albumin 2.7 L, Red Blood Count 2.81 L, Mean Corpuscular Volume 101.8 H, Mean Corpuscular Hemoglobin 28.5, Mean Corpuscular Hemoglobin Concent 28.0 L, Red Cell Distribution Width 22.8 H, Neutrophils (%) (Auto) 80.5 H, Lymphocytes (%) (Auto) 7.7 L, Monocytes (%) (Auto) 6.8 H, Eosinophils (%) ( Auto) 2.0, Basophils (%) (Auto) 0.9, Neutrophils # (Auto) 7.5, Lymphocytes # ( Auto) 0.9 L, Monocytes # (Auto) 0.6, Eosinophils # (Auto) 0.2, Basophils # (Auto ) 0.1 ROMEO LUNDBERG MD Apr 15, 2016 08:33
[2016-04-15] MEDS: MOM 30ML SUSPENSION UDC PO PRN (11:48)
[2016-04-15] MEDS: PERCOCET 5MG/325MG TAB PO PRN ×2 (11:51→21:01)
[2016-04-15 12:05] LABS: ABG BASE EXCESS 8.6 (-2.0-2.0); ABG HCO3 34.4 MEQ/L (22.0-26.0); ABG PARTIAL PRESSURE CO2 54.9 mmHg (35.0-45.0); ABG PARTIAL PRESSURE O2 128.4 mmHg (75.0-100.0); ABG STANDARD HCO3 32.4 MEQ/L (22.0-26.0); ABG TOTAL CO2 36.1 MEQ/L (23.0-31.0); ABG pH (ARTERIAL) 7.415 UNITS (7.350-7.450)
[2016-04-15 14:00] VITALS: BP 129/58
[2016-04-15 18:11] VITALS: BP 107/57
[2016-04-15] MEDS: **NOTE PATIENT COMMENT** MISC XX SCH (21:03)
[2016-04-15 22:00] VITALS: BP 121/54
[2016-04-16 01:26] VITALS: BP 99/55
[2016-04-16] MEDS: FUROSEMIDE 40 MG/4 ML VIAL (J1940) IV SCH ×4 (01:26→18:54)
[2016-04-16] MEDS: cefTRIAXone SOD 1 GM in D5W MINI-BAG PLUS 50 ML IV SCH ×2 (01:32→12:57)
[2016-04-16 06:00] VITALS: BP 139/74
[2016-04-16 06:06] LABS: BASO % 0.3 % (0.0-1.0); EOS # 0.2 K/mm3 (0.0-0.50); LARGE UNSTAINED CELL # 0.2 K/mm3 (0.0-0.4); LARGE UNSTAINED CELL % 2.2 % (0.0-4.0); LYMPH # 0.8 K/mm3 (1.5-4.5); LYMPH % 7.6 % (24.0-44.0); MEAN CORPUSCULAR HEMOGLOBIN 28.4 pg (27.0-33.0); MEAN CORPUSCULAR HGB CONC 28.3 g/dl (32.0-36.5); MEAN CORPUSCULAR VOLUME 100.2 fl (80.0-96.0); MONO # 0.6 K/mm3 (0.0-0.8); MONO % 6.1 % (0.0-5.0); NEUTROPHILS # 8.1 K/mm3 (1.8-7.7); NEUTROPHILS % 81.7 % (36.0-66.0); PLATELET COUNT, AUTOMATED 277 k/mm3 (150-450); RED CELL DISTRIBUTION WIDTH 21.2 % (11.5-14.5); WHITE BLOOD COUNT 9.9 K/mm3 (4.0-10.0)
[2016-04-16 06:36] LABS: ALBUMIN 2.8 GM/DL (3.2-5.2); ALBUMIN/GLOBULIN RATIO 0.6 (1.00-1.93); BILIRUBIN,TOTAL 0.5 MG/DL (0.2-1.0); CALCIUM LEVEL 8.9 MG/DL (8.8-10.2); CREATININE FOR GFR 1.14 MG/DL (0.55-1.02); GLOMERULAR FILTRATION RATE 50.8 (>45); POTASSIUM SERUM 3.9 MEQ/L (3.5-5.1); TOTAL PROTEIN 7.5 GM/DL (6.4-8.2)
[2016-04-16] MEDS: SLF 3 ML SYR IV SCH ×3 (06:38→21:01)
[2016-04-16] MEDS: TIOTROPIUM INHALER/CAPSULE (SPIRIVA) INH SCH (07:42)
[2016-04-16] MEDS: IPRATROPIUM 0.5MG/ALBUTEROL 2.5MG INH SOL UD 3ML (DUONEB)(J7620) NEB SCH ×4 (07:43→19:31)
[2016-04-16] MEDS: BREO ELLIPTA INH SCH (07:43)
[2016-04-16] MEDS: AcetaZOLAMIDE 250 MG TAB PO SCH ×2 (09:02→20:59)
[2016-04-16] MEDS: HumaLOG INSULIN (NovoLOG) PER UNIT SC SCH ×4 (09:02→20:42)
[2016-04-16] MEDS: ATORVASTATIN 20 MG TAB PO SCH (09:03)
[2016-04-16] MEDS: PANTOPRAZOLE 40MG TAB (PROTONIX) PO SCH (09:03)
[2016-04-16] MEDS: SPIRONOLACTONE 25 MG TAB PO SCH ×2 (09:03→15:43)
[2016-04-16] MEDS: POTASSIUM CHLORIDE 10 MEQ SR TABLET PO SCH ×3 (09:03→20:59)
[2016-04-16] MEDS: MULTIVITAMINS/MINERALS THERAP 1 TAB PO SCH (09:03)
[2016-04-16] MEDS: ASCORBIC ACID 500 MG TAB PO SCH ×2 (09:03→17:20)
[2016-04-16] MEDS: FERROUS SULFATE 325MG TAB PO SCH ×2 (09:03→20:59)
[2016-04-16] MEDS: ASPIRIN 81 MG ENTERIC TAB PO SCH (09:03)
[2016-04-16] MEDS: METOPROLOL TART 12.5 MG PER 1/2 TAB PO SCH ×2 (09:06→21:00)
[2016-04-16] MEDS: LIDOCAINE 5% (LIDODERM) PATCH TD SCH (09:06)
[2016-04-16] MEDS: NYSTATIN 100,000 UNITS/GM TOPICAL PWD 15 GM TOP SCH ×2 (09:07→21:00)
[2016-04-16] MEDS: LORATADINE 10 MG TAB PO PRN (09:13)
[2016-04-16] MEDS: DABIGATRAN ETEXILATE 75 MG CAP (PRADAXA) PO SCH ×2 (10:08→20:59)
--- NOTE | 2016-04-16 12:04 | IPNPDOC ---
Assessment/Plan Date Seen The patient was seen on 04/16/16. Problems Problems: (1) Cellulitis Status: Acute Problem Text: on ceftriaxone (2) Anasarca Status: Acute Problem Text: due to diastolic congestive heart failure. on multiple diuretics. (3) Acute on chronic diastolic CHF (congestive heart failure) Status: Acute Problem Text: continue diuresis , daily weights. on lasix, diamox and spironolactone. (4) Acute and chronic respiratory failure with hypoxia Status: Acute Problem Text: multifactorial due to CAP and diastolic chf exacerbation and fluid slowly improving with diuresis and antibiotics. (5) CAP (community acquired pneumonia) Status: Resolved Problem Text: finished course on ceftriaxone. (6) Constipation Status: Resolved Problem Text: on bowel regimen (7) JANE (obstructive sleep apnea) Status: Chronic (8) Morbid obesity Status: Chronic (9) Diabetes Status: Chronic (10) Hypertension Status: Chronic (11) COPD (chronic obstructive pulmonary disease) Status: Chronic Problem Text: continue home meds. (12) CAD (coronary artery disease) Status: Chronic (13) Hyperlipidemia Status: Chronic (14) Mitral stenosis and incompetence Status: Chronic (15) Pulmonary hypertension Status: Chronic (16) Afib Status: Chronic Problem Text: on pradaxa (17) Chronic anemia Status: Chronic (18) Allergy Status: Chronic Problem Text: continue loratidine Plan / VTE VTE Prophylaxis Ordered?: Yes Plan / Urinary Catheter Reason for insertion/continuin: Other-document below Subjective Review of Systems CC/HPI The patient is a 66-year-old female admitted with a reason for visit of Acute Respiratory Distress. Events since last encounter no new complaints. Objective Physical Examination General Exam: Positive: Alert, No Acute Distress Eye Exam: Positive: Conjunctiva & lids normal, EOMI, PERRLA, Negative: Sclera icteric ENT Exam: Positive: Atraumatic, Mucous membr. moist/pink, Pharynx Normal Neck Exam: Positive: Supple, Negative: JVD, thyromegaly Chest Exam: Positive: Diminished Heart Exam: Positive: Normal S1, Normal S2, Rate Normal, Regular Rhythm Abdomen Exam: Positive: Normal bowel sounds, Soft, Negative: Hepatospenomegaly, Tenderness Extremity Exam: Positive: Edema, Other (redness and inflammation), Swelling, Tenderness Vital Signs/I&O Vital Signs Date Time Temp Pulse Resp B/P Pulse Ox O2 Delivery O2 Flow Rate FiO2 04/16/16 06:00 97.5 88 20 139/74 91 Nasal Cannula 3.0 I&O- Last 24 Hours up to 6 AM 04/16/16 06:00 Intake Total 1250 ml Output Total 5600 ml Balance -4350 ml Laboratory Data Labs 24H Laboratory Tests 2 04/15/16 11:47: Arterial Blood pH 7.415, Arterial Blood Partial Pressure CO2 54.9H, Arterial Blood Partial Pressure O2 128.4H, Arterial Blood Total CO2 36.1H, Arterial Blood HCO3 34.4H, Arterial Blood Base Excess 8.6H, Arterial Blood Oxygen Saturation 99.2H, Blood Gas Bicarbonate Standard 32.4H 04/16/16 05:38: Blood Urea Nitrogen 25H, Creatinine 1.14H, Sodium Level 139, Potassium Level 3.9 #, Chloride Level 97L, Carbon Dioxide Level 34H, Calcium Level 8.9, Aspartate Amino Transf (AST/SGOT) 19, Alanine Aminotransferase (ALT/SGPT) 14, Alkaline Phosphatase 73, Total Bilirubin 0.5, Total Protein 7.5, Albumin 2.8L, Albumin/ Globulin Ratio 0.60L, Anion Gap 8, White Blood Count 9.9, Red Blood Count 2.89L , Hemoglobin 8.2L, Hematocrit 28.9L, Mean Corpuscular Volume 100.2H, Mean Corpuscular Hemoglobin 28.4, Mean Corpuscular Hemoglobin Concent 28.3L, Red Cell Distribution Width 21.2H, Platelet Count 277, Neutrophils (%) (Auto) 81.7H , Lymphocytes (%) (Auto) 7.6L, Monocytes (%) (Auto) 6.1H, Eosinophils (%) (Auto ) 2.0, Basophils (%) (Auto) 0.3, Neutrophils # (Auto) 8.1H, Lymphocytes # (Auto ) 0.8L, Monocytes # (Auto) 0.6, Eosinophils # (Auto) 0.2, Basophils # (Auto) 0.0 , Glomerular Filtration Rate 50.8, Large Unclassified Cells # 0.2, Large Unclassified Cells % 2.2 CBC/BMP Laboratory Tests 04/16/16 05:38 Calcium Level 8.9, Aspartate Amino Transf (AST/SGOT) 19, Alanine Aminotransferase (ALT/SGPT) 14, Alkaline Phosphatase 73, Total Bilirubin 0.5, Total Protein 7.5, Albumin 2.8 L, Red Blood Count 2.89 L, Mean Corpuscular Volume 100.2 H, Mean Corpuscular Hemoglobin 28.4, Mean Corpuscular Hemoglobin Concent 28.3 L, Red Cell Distribution Width 21.2 H, Neutrophils (%) (Auto) 81.7 H, Lymphocytes (%) (Auto) 7.6 L, Monocytes (%) (Auto) 6.1 H, Eosinophils (%) ( Auto) 2.0, Basophils (%) (Auto) 0.3, Neutrophils # (Auto) 8.1 H, Lymphocytes # ( Auto) 0.8 L, Monocytes # (Auto) 0.6, Eosinophils # (Auto) 0.2, Basophils # (Auto ) 0.0 ROMEO LUNDBERG MD Apr 16, 2016 07:13
[2016-04-16] MEDS: PERCOCET 5MG/325MG TAB PO PRN ×2 (12:58→17:21)
--- NOTE | 2016-04-16 13:06 | IPN ---
DATE: 04/15/2016 Mrs. Magaña is seen this morning on her bedside. She is lying in the bed and continues to discomfort in her legs and feet. Her leg edema is improving with diuresis. She denies any nausea, vomiting, any worsening of dyspnea or chest pain. She does have chronic hypoxemia and currently she is on two liters oxygen. Intake and output records from yesterday show a negative fluid balance of 4.7 liters. Her weight is down to 168.6 kg today, and she was 175.4 kg on 04/11/2016. Her lungs sound clear to auscultation. Heart sounds are irregular. Head is atraumatic. Neck veins are difficult to be assessed. Pupils are equal and reactive to light and sclera is anicteric. Ears, nose and throat are unremarkable. Abdomen is obese and nontender. Extremities have no cyanosis or clubbing. Lower extremity edema is improving. However, she still has significant erythema on both legs and feet. LABORATORY DATA: Today's laboratories show WBC count 9.2, hemoglobin 8.0 and hematocrit 28.6. Sodium is 140 and potassium 3.2. CO2 is down to 37, BUN 22 and creatinine 1.0. A blood gas showed a pH of 7.41, pCO2 54.9, pO2 128.4, and bicarbonate 32.4. PROBLEMS: 1. Acute on chronic congestive heart failure. The patient is diuresing very nicely. Her metolazone has been stopped due to massive negative fluid balance and development of metabolic alkalosis. She remains on IV Lasix, oral spironolactone and Diamox. 2. Hypokalemia. Potassium level is improving and I have increased her potassium supplement 240 mEq three times a day. Electrolytes will be checked again tomorrow morning. 3. Acute on chronic kidney injury. Kidney function is stable at present and she is diuresing very nicely. 4. Bilateral lower extremity cellulitis. She is receiving IV antibiotics and has been afebrile.
[2016-04-16 14:00] VITALS: BP 113/53
[2016-04-16 18:54] VITALS: BP 119/61
[2016-04-16] MEDS: **NOTE PATIENT COMMENT** MISC XX SCH (21:00)
[2016-04-16 22:00] VITALS: BP 124/58
[2016-04-17] MEDS: FUROSEMIDE 40 MG/4 ML VIAL (J1940) IV SCH ×4 (00:37→18:04)
[2016-04-17] MEDS: cefTRIAXone SOD 1 GM in D5W MINI-BAG PLUS 50 ML IV SCH (00:41)
[2016-04-17 06:00] VITALS: BP 123/64
[2016-04-17] MEDS: SLF 3 ML SYR IV SCH ×3 (06:11→21:27)
[2016-04-17 06:32] LABS: BASO % 0.4 % (0.0-1.0); EOS # 0.2 K/mm3 (0.0-0.50); EOS % 1.8 % (0.0-3.0); LARGE UNSTAINED CELL # 0.3 K/mm3 (0.0-0.4); LARGE UNSTAINED CELL % 2.6 % (0.0-4.0); LYMPH % 8.8 % (24.0-44.0); MEAN CORPUSCULAR HEMOGLOBIN 28.6 pg (27.0-33.0); MEAN CORPUSCULAR VOLUME 102.4 fl (80.0-96.0); MONO # 0.6 K/mm3 (0.0-0.8); MONO % 5.9 % (0.0-5.0); NEUTROPHILS # 8.8 K/mm3 (1.8-7.7); NEUTROPHILS % 80.6 % (36.0-66.0); PLATELET COUNT, AUTOMATED 318 k/mm3 (150-450); RED CELL DISTRIBUTION WIDTH 21.5 % (11.5-14.5); WHITE BLOOD COUNT 10.9 K/mm3 (4.0-10.0)
[2016-04-17 06:47] LABS: ALBUMIN 2.9 GM/DL (3.2-5.2); ALBUMIN/GLOBULIN RATIO 0.63 (1.00-1.93); BILIRUBIN,TOTAL 0.4 MG/DL (0.2-1.0); CALCIUM LEVEL 8.8 MG/DL (8.8-10.2); CREATININE FOR GFR 1.2 MG/DL (0.55-1.02); GLOMERULAR FILTRATION RATE 47.8 (>45); POTASSIUM SERUM 3.8 MEQ/L (3.5-5.1); TOTAL PROTEIN 7.5 GM/DL (6.4-8.2)
--- NOTE | 2016-04-17 07:18 | IPN ---
DATE: 04/14/2016 SUBJECTIVE: Ms. Magaña is a 66-year-old female who was seen and examined at the bedside. Patient expressed that she feels better today. The patient denies chest pain; however, patient has orthopnea and paroxysmal nocturnal dyspnea (PND). The patient also is still on 4 liters nasal cannula. The patient expressed that she believes her lower extremity size has decreased and her pain in her lower extremities has decreased as well. OBJECTIVE: VITAL SIGNS: Temperature 97.5, pulse 99, respiratory rate 22, blood pressure 114/50, pulse oximetry 93% on 4 liters nasal cannula. Total intake from yesterday 720, total output 5350 mL. GENERAL APPEARANCE: Patient was sitting on the chair in no acute distress. Patient was awake, alert, and oriented to time, place, and person. HEENT: Normocephalic, atraumatic. Pupils are equal. HEART: Irregular. Normal S1, S2. LUNGS: Patient has fine crackles at the bases of the lungs. Good air movement. No wheezing or rales noticed. ABDOMEN: Morbidly obese, soft, nontender. Positive bowel sounds in all quadrants. Patient continues to have mild erythema, mostly on the lower abdominal area, pelvic and inguinal area related to candidemia. EXTREMITIES: Patient has lower extremity pitting edema bilaterally, +2 pulses in both lower extremities. Patient continues to have erythema; however, the erythema has decreased in the lower extremities and is less painful compared to yesterday to palpation. LABORATORY DATA: White blood cells 9.1, red blood cells 2.86, hemoglobin 8.1, hematocrit 28.1, MCV 98.4, MCH 28.4, MCHC 28.9, RDW 22, platelet count 234, neutrophil percentage 79.7, lymphocyte percentage 8.7, monocyte percentage 7.2, eosinophil percentage 2.1, basophil percentage 0.2. Sodium 139, potassium 3.1, chloride 94, carbon dioxide 40, anion gap 5, BUN 21, creatinine 1, glomerular filtration 59.1, fasting glucose 112, calcium 8.4, magnesium 2.3, total bilirubin 0.6, AST 16, ALT 14, alkaline phosphatase 69, C-reactive protein 1.71, total protein 6.9, albumin 2.7. ASSESSMENT AND PLAN: 1. Chronic diastolic congestive heart failure. Patient has grade 2 diastolic heart failure. Will continue patient on spironolactone as well as Lasix; however, nephrology has stopped metolazone. 2. Acute exacerbation of dyspnea and hypoxia. This is multifactorial. At this time, will continue patient on nasal cannula. Also will continue diuresing the patient, which is managed by nephrology. 3. Acute kidney injury. Dr. Osuna has seen the patient yesterday. The patient at this time is on spironolactone as well as Lasix; however, nephrology has stopped metolazone. Patient continues to have net negative fluid; however, patient is hypervolemic. 4. Constipation. Continue patient on Dulcolax, MiraLAX, Colace as needed for constipation. 5. Obstructive sleep apnea. This is a chronic issue. 6. Morbidly obese. This is a chronic issue. 7. Diabetes. Continue patient on sliding scale as well as consistent carbohydrate diet. 8. Hypokalemia. This is possibly related to Lasix. Patient is started on potassium by nephrology. 9. Hypertension. Patient is on Lasix, Lopressor and spironolactone. 10. Chronic obstructive pulmonary disease (COPD). Will continue patient on his breathing treatment and nasal cannula. 11. Coronary artery disease. Patient is on aspirin, Pradaxa, Lipitor and Lopressor. 12. Hyperlipidemia. Continue patient on Lipitor. 13. Mitral stenosis. Patient is on Lasix, spironolactone and beta alfreda. 14. Pulmonary hypertension. This is a chronic issue. Continue patient on spironolactone and Lasix. 15. Chronic atrial fibrillation. Will continue patient on Pradaxa, aspirin and beta alfreda. 16. Gastroesophageal reflux disease (GERD). Will continue patient on Protonix. 17. Allergies. Patient is on Claritin; however, patient has not been symptomatic. 18. Anemia. Patient is on ferrous sulfate. Patient is also on laxatives. The patient today's hemoglobin has decreased to 8.1 compared to yesterday which was 8.4 and hematocrit decreased to 28.1 compared to yesterday which was 29.2. This is possibly secondary to diuretics. Will continue monitoring hemoglobin and hematocrit level. 19. Bilateral lower extremity edema. This is possibly related to hypervolemia. Patient is on diuresis. Patient is managed by nephrology. 20. Abnormal liver finding on CT. CT of the chest performed earlier shows possibility of liver cirrhosis. Liver ultrasound shows slight irregular liver contour; however, liver function test was normal yesterday and is normal today. However patient's PT was elevated with a normal INR. The patient can be followed as an outpatient. 21. Cellulitis of the right foot. At this time, patient's erythema area has decreased. Will continue patient on ceftriaxone. 22. Deep vein thrombosis prophylaxis. Patient is on Pradaxa. My preceptor for this patient encounter was Dr. Michelle Montgomery. The preceptor was physically present in the building during the encounter and was fully available as needed. All aspects of the patient interview, examination, medical decision making process, and medical care plan development were reviewed and approved by the preceptor. The preceptor is aware and concurs with the plan as stated in the body of this note and will attest to such by his/her co-signature. I have both independently examined this patient as well as reviewed the note. I have discussed in detail with the resident the findings and plan of treatment as documented in the residents note. I will continue to follow the patient and offer further guidance to the patients care as necessary during this hospital stay. Michelle ANGULO
[2016-04-17] MEDS: TIOTROPIUM INHALER/CAPSULE (SPIRIVA) INH SCH (07:24)
[2016-04-17] MEDS: BREO ELLIPTA INH SCH (07:24)
[2016-04-17] MEDS: IPRATROPIUM 0.5MG/ALBUTEROL 2.5MG INH SOL UD 3ML (DUONEB)(J7620) NEB SCH ×4 (07:24→19:46)
[2016-04-17] MEDS: HumaLOG INSULIN (NovoLOG) PER UNIT SC SCH ×4 (08:11→20:39)
[2016-04-17] MEDS: POTASSIUM CHLORIDE 10 MEQ SR TABLET PO SCH ×3 (08:11→20:38)
[2016-04-17] MEDS: ATORVASTATIN 20 MG TAB PO SCH (08:11)
[2016-04-17] MEDS: PANTOPRAZOLE 40MG TAB (PROTONIX) PO SCH (08:11)
[2016-04-17] MEDS: FERROUS SULFATE 325MG TAB PO SCH ×2 (08:11→20:38)
[2016-04-17] MEDS: SPIRONOLACTONE 25 MG TAB PO SCH ×2 (08:11→16:00)
[2016-04-17] MEDS: MULTIVITAMINS/MINERALS THERAP 1 TAB PO SCH (08:11)
[2016-04-17] MEDS: ASPIRIN 81 MG ENTERIC TAB PO SCH (08:12)
[2016-04-17] MEDS: METOPROLOL TART 12.5 MG PER 1/2 TAB PO SCH ×2 (08:12→20:38)
[2016-04-17] MEDS: DABIGATRAN ETEXILATE 75 MG CAP (PRADAXA) PO SCH ×2 (08:12→20:38)
[2016-04-17] MEDS: ASCORBIC ACID 500 MG TAB PO SCH ×2 (08:12→17:04)
[2016-04-17] MEDS: LIDOCAINE 5% (LIDODERM) PATCH TD SCH (08:13)
[2016-04-17] MEDS: NYSTATIN 100,000 UNITS/GM TOPICAL PWD 15 GM TOP SCH ×2 (08:13→20:41)
[2016-04-17] MEDS ORDERED: DARBEPOETIN 100 MCG/0.5 ML *NON-DIALYSIS* SYRINGE (J0881) SC SCH (09:00)
[2016-04-17] MEDS: AcetaZOLAMIDE 250 MG TAB PO SCH (09:49)
[2016-04-17] MEDS: LORATADINE 10 MG TAB PO PRN (09:55)
--- NOTE | 2016-04-17 10:05 | IPNPDOC ---
Assessment/Plan Date Seen The patient was seen on 04/17/16. Problems Problems: (1) Cellulitis Status: Acute Problem Text: on ceftriaxone (2) Anasarca Status: Acute Problem Text: due to diastolic congestive heart failure. on multiple diuretics. (3) Acute on chronic diastolic CHF (congestive heart failure) Status: Acute Problem Text: continue diuresis , daily weights. on lasix, diamox and spironolactone. (4) Acute and chronic respiratory failure with hypoxia Status: Acute Problem Text: multifactorial due to CAP and diastolic chf exacerbation and fluid slowly improving with diuresis and antibiotics. (5) CAP (community acquired pneumonia) Status: Resolved Problem Text: finished course on ceftriaxone. (6) Constipation Status: Resolved Problem Text: on bowel regimen (7) JANE (obstructive sleep apnea) Status: Chronic (8) Morbid obesity Status: Chronic (9) Diabetes Status: Chronic (10) Hypertension Status: Chronic (11) COPD (chronic obstructive pulmonary disease) Status: Chronic Problem Text: continue home meds. (12) CAD (coronary artery disease) Status: Chronic (13) Hyperlipidemia Status: Chronic (14) Mitral stenosis and incompetence Status: Chronic (15) Pulmonary hypertension Status: Chronic (16) Afib Status: Chronic Problem Text: on pradaxa (17) Chronic anemia Status: Chronic (18) Allergy Status: Chronic Problem Text: continue loratidine (19) Hematuria Status: Acute Problem Text: possibly from trama from garcia will monitor if continues may have to hold anticoagulants temporarily. Plan / VTE VTE Prophylaxis Ordered?: Yes Plan / Urinary Catheter Reason for insertion/continuin: Other-document below Subjective Review of Systems CC/HPI The patient is a 66-year-old female admitted with a reason for visit of Acute Respiratory Distress. Events since last encounter having hematuria in garcia from this am patient believes that she may have pulled her garcia while turning and getting out of bed. also complains of hoarseness of voice and some dry sticky phlegm , no sore throat, no fever or chills, Feels tired and weak , leg pain and swelling improving. Objective Physical Examination General Exam: Positive: Alert, No Acute Distress Eye Exam: Positive: Conjunctiva & lids normal, EOMI, PERRLA, Negative: Sclera icteric ENT Exam: Positive: Atraumatic, Mucous membr. moist/pink, Pharynx Normal Neck Exam: Positive: Supple, Negative: JVD, thyromegaly Chest Exam: Positive: Diminished Heart Exam: Positive: Normal S1, Normal S2, Rate Normal, Regular Rhythm Abdomen Exam: Positive: Normal bowel sounds, Soft, Negative: Hepatospenomegaly, Tenderness Extremity Exam: Positive: Edema, Other (redness and inflammation), Swelling, Tenderness Vital Signs/I&O Vital Signs Date Time Temp Pulse Resp B/P Pulse Ox O2 Delivery O2 Flow Rate FiO2 04/17/16 08:12 93 119/56 04/17/16 06:00 98.7 20 91 Nasal Cannula 3.0 I&O- Last 24 Hours up to 6 AM 04/17/16 06:00 Intake Total 1310 ml Output Total 3250 ml Balance -1940 ml Laboratory Data Labs 24H Laboratory Tests 2 04/17/16 06:17: Blood Urea Nitrogen 26H, Creatinine 1.20H, Sodium Level 139, Potassium Level 3.8 , Chloride Level 96L, Carbon Dioxide Level 35H, Calcium Level 8.8, Aspartate Amino Transf (AST/SGOT) 17, Alanine Aminotransferase (ALT/SGPT) 23, Alkaline Phosphatase 77, Total Bilirubin 0.4, Total Protein 7.5, Albumin 2.9L, Albumin/ Globulin Ratio 0.63L, Anion Gap 8, White Blood Count 10.9H, Red Blood Count 2.91L, Hemoglobin 8.3L, Hematocrit 29.8L, Mean Corpuscular Volume 102.4H, Mean Corpuscular Hemoglobin 28.6, Mean Corpuscular Hemoglobin Concent 28.0L, Red Cell Distribution Width 21.5H, Platelet Count 318, Neutrophils (%) (Auto) 80.6H , Lymphocytes (%) (Auto) 8.8L, Monocytes (%) (Auto) 5.9H, Eosinophils (%) (Auto ) 1.8, Basophils (%) (Auto) 0.4, Neutrophils # (Auto) 8.8H, Lymphocytes # (Auto ) 1.0L, Monocytes # (Auto) 0.6, Eosinophils # (Auto) 0.2, Basophils # (Auto) 0.0 , Glomerular Filtration Rate 47.8, Large Unclassified Cells # 0.3, Large Unclassified Cells % 2.6 CBC/BMP Laboratory Tests 04/17/16 06:17 Calcium Level 8.8, Aspartate Amino Transf (AST/SGOT) 17, Alanine Aminotransferase (ALT/SGPT) 23, Alkaline Phosphatase 77, Total Bilirubin 0.4, Total Protein 7.5, Albumin 2.9 L, Red Blood Count 2.91 L, Mean Corpuscular Volume 102.4 H, Mean Corpuscular Hemoglobin 28.6, Mean Corpuscular Hemoglobin Concent 28.0 L, Red Cell Distribution Width 21.5 H, Neutrophils (%) (Auto) 80.6 H, Lymphocytes (%) (Auto) 8.8 L, Monocytes (%) (Auto) 5.9 H, Eosinophils (%) ( Auto) 1.8, Basophils (%) (Auto) 0.4, Neutrophils # (Auto) 8.8 H, Lymphocytes # ( Auto) 1.0 L, Monocytes # (Auto) 0.6, Eosinophils # (Auto) 0.2, Basophils # (Auto ) 0.0 ROMEO LUNDBERG MD Apr 17, 2016 10:05
[2016-04-17] MEDS: PERCOCET 5MG/325MG TAB PO PRN ×2 (11:35→20:40)
[2016-04-17 12:30] VITALS: BP 125/60
[2016-04-17 14:00] VITALS: BP 128/60
--- NOTE | 2016-04-17 15:55 | IPN ---
DATE: 04/16/2016 Ms. Magaña is seen this morning on her bedside. She continues to have complaint of pain and burning in her legs and feet. Her leg edema and erythema is essentially unchanged since yesterday. Her dyspnea has improved and she continues to use oxygen at 3 liters via nasal cannula. She denies any nausea or vomiting. PHYSICAL EXAMINATION: Temperature 97.5 degrees Fahrenheit, heart rate 95 per minute and respiratory rate 20 per minute. Blood pressure 112/67 mmHg and oxygen saturation 91% on 3 liters oxygen. Head is atraumatic. Ears, nose and throat are unremarkable. Neck is supple and without any thyroid enlargement. Neck veins are difficult to be assessed. Heart: Sounds are irregular and somewhat tachycardiac. Lungs with moderate bilateral air entry. Abdomen: Obese and nontender. There is edema of abdominal wall. Extremities have no cyanosis or clubbing. Bilateral lower leg cellulitis and edema is unchanged. Neurologically she is awake, alert and oriented times three. LABORATORY DATA: Today's labs show WBC count 9.9, hemoglobin 8.2 and hematocrit 28.9. Platelets 277. Sodium 139 and potassium 3.9. BUN 25 and creatinine 1.14. CO2 is down to 34. PROBLEM LIST: 1. Acute kidney injury superimposed on chronic kidney disease. The patient does have mild underlying chronic kidney disease. Slight worsening of kidney function is related to her volume status as she is being aggressively diuresed. 2. Acute on chronic congestive heart failure. Her volume status is improving as she is diuresing very well. For last 3 days she has been 4.5 liters negative fluid balance in each day. Overall she has lost at least about 10 kg in last 5 days. Will continue with current diuretics and monitor her electrolytes on a daily basis. 3. Hypokalemia and metabolic alkalosis. These are related to aggressive diuresis. She is now on potassium supplement and acetazolamide. I am going to cut down her potassium supplement to 20 mEq three times a day instead of 40 mEq. We will continue with acetazolamide 500 mg twice a day for another 24-48 hours. 4. Anemia. Her anemia is essentially unchanged. She received Aranesp dose and we will continue to monitor her. 5. Cellulitis. Patient remains on antibiotics and we will continue to monitor.
[2016-04-17 17:58] VITALS: BP 128/63
[2016-04-17 19:47] VITALS: O2SAT 96
[2016-04-17] MEDS: **NOTE PATIENT COMMENT** MISC XX SCH (20:40)
[2016-04-17 22:00] VITALS: BP 115/57
[2016-04-18] VITALS (8 sets, daily range): BP systolic 109–131; BP diastolic 57–79; O2SAT 93
[2016-04-18] MEDS: FUROSEMIDE 40 MG/4 ML VIAL (J1940) IV SCH ×3 (02:00→17:25)
[2016-04-18] MEDS: PERCOCET 5MG/325MG TAB PO PRN ×4 (03:44→23:47)
[2016-04-18] MEDS: SLF 3 ML SYR IV SCH ×3 (05:07→22:00)
[2016-04-18 07:01] LABS: BASO # 0.1 K/mm3 (0.0-0.2); BASO % 0.9 % (0.0-1.0); EOS # 0.2 K/mm3 (0.0-0.50); LARGE UNSTAINED CELL # 0.2 K/mm3 (0.0-0.4); LARGE UNSTAINED CELL % 1.8 % (0.0-4.0); LYMPH # 0.9 K/mm3 (1.5-4.5); LYMPH % 6.3 % (24.0-44.0); MEAN CORPUSCULAR HEMOGLOBIN 28.4 pg (27.0-33.0); MEAN CORPUSCULAR HGB CONC 27.6 g/dl (32.0-36.5); MONO # 0.7 K/mm3 (0.0-0.8); MONO % 5.7 % (0.0-5.0); NEUTROPHILS # 9.8 K/mm3 (1.8-7.7); NEUTROPHILS % 83.3 % (36.0-66.0); PLATELET COUNT, AUTOMATED 297 k/mm3 (150-450); RED CELL DISTRIBUTION WIDTH 23.3 % (11.5-14.5); WHITE BLOOD COUNT 11.7 K/mm3 (4.0-10.0)
[2016-04-18] MEDS: IPRATROPIUM 0.5MG/ALBUTEROL 2.5MG INH SOL UD 3ML (DUONEB)(J7620) NEB SCH ×4 (07:34→19:45)
[2016-04-18] MEDS: BREO ELLIPTA INH SCH (07:34)
[2016-04-18] MEDS: TIOTROPIUM INHALER/CAPSULE (SPIRIVA) INH SCH (07:34)
[2016-04-18 07:42] LABS: ALBUMIN 2.9 GM/DL (3.2-5.2); ALBUMIN/GLOBULIN RATIO 0.71 (1.00-1.93); BILIRUBIN,TOTAL 0.5 MG/DL (0.2-1.0); CALCIUM LEVEL 8.6 MG/DL (8.8-10.2); CREATININE FOR GFR 1.13 MG/DL (0.55-1.02); GLOMERULAR FILTRATION RATE 51.3 (>45); POTASSIUM SERUM 3.7 MEQ/L (3.5-5.1)
[2016-04-18] MEDS: DABIGATRAN ETEXILATE 75 MG CAP (PRADAXA) PO SCH ×2 (09:00→20:43)
[2016-04-18] MEDS: HumaLOG INSULIN (NovoLOG) PER UNIT SC SCH ×4 (09:27→20:45)
[2016-04-18] MEDS: ASPIRIN 81 MG ENTERIC TAB PO SCH (09:28)
[2016-04-18] MEDS: METOPROLOL TART 12.5 MG PER 1/2 TAB PO SCH ×2 (09:28→20:43)
[2016-04-18] MEDS: ASCORBIC ACID 500 MG TAB PO SCH ×2 (09:29→17:24)
[2016-04-18] MEDS: MULTIVITAMINS/MINERALS THERAP 1 TAB PO SCH (09:29)
[2016-04-18] MEDS: SPIRONOLACTONE 25 MG TAB PO SCH ×2 (09:29→16:02)
[2016-04-18] MEDS: LIDOCAINE 5% (LIDODERM) PATCH TD SCH (09:29)
[2016-04-18] MEDS: ATORVASTATIN 20 MG TAB PO SCH (09:29)
[2016-04-18] MEDS: POTASSIUM CHLORIDE 10 MEQ SR TABLET PO SCH ×3 (09:29→20:43)
[2016-04-18] MEDS: FERROUS SULFATE 325MG TAB PO SCH ×2 (09:29→20:43)
[2016-04-18] MEDS: PANTOPRAZOLE 40MG TAB (PROTONIX) PO SCH (09:30)
[2016-04-18] MEDS: NYSTATIN 100,000 UNITS/GM TOPICAL PWD 15 GM TOP SCH ×2 (09:41→20:44)
[2016-04-18] MEDS: LORATADINE 10 MG TAB PO PRN (09:41)
[2016-04-18] MEDS: DOCUSATE SODIUM 100 MG CAP PO PRN (09:41)
[2016-04-18] MEDS: CEPACOL LOZENGE PO PRN ×3 (11:53→20:42)
[2016-04-18] MEDS: ONDANSETRON 4MG/2ML VIAL (J2405) IV PRN (11:56)
[2016-04-18 12:25] LABS: BASO % 0.3 % (0.0-1.0); EOS # 0.2 K/mm3 (0.0-0.50); EOS % 1.9 % (0.0-3.0); LARGE UNSTAINED CELL # 0.2 K/mm3 (0.0-0.4); LYMPH # 0.9 K/mm3 (1.5-4.5); LYMPH % 7.7 % (24.0-44.0); MEAN CORPUSCULAR HEMOGLOBIN 28.8 pg (27.0-33.0); MEAN CORPUSCULAR HGB CONC 28.8 g/dl (32.0-36.5); MONO # 0.6 K/mm3 (0.0-0.8); MONO % 5.5 % (0.0-5.0); NEUTROPHILS # 9.6 K/mm3 (1.8-7.7); NEUTROPHILS % 82.5 % (36.0-66.0); PLATELET COUNT, AUTOMATED 291 k/mm3 (150-450); RED CELL DISTRIBUTION WIDTH 21.8 % (11.5-14.5); WHITE BLOOD COUNT 11.6 K/mm3 (4.0-10.0)
[2016-04-18 12:33] LABS: ADD MORPHOLOGY? YES
[2016-04-18 12:34] LABS: ANISOCYTOSIS 2+; HYPOCHROMASIA 3+
[2016-04-18 12:37] LABS: STOMATOCYTES 1+
--- NOTE | 2016-04-18 14:53 | REP ---
PORTABLE CHEST: AP portable view of the chest is performed and compared to a prior study of 04/06/2016. The heart appears enlarged once again and there are diffuse interstitial opacities which appear stable. There are bilateral lower lung parenchymal opacities which are unchanged. There is no definite change in the cardiomediastinal silhouette. IMPRESSION: Stable exam with no change compared to 04/06/2016. Signed by Darinel Rangel MD 04/18/2016 04:15 P
--- NOTE | 2016-04-18 15:29 | IPN ---
DATE: 04/17/2016 Mr. Magaña is seen this afternoon on her bedside. The patient reports that she had great difficulty in walking and her oxygen saturation dropped down to 70%. She is just not feeling good and reports worsening pains and aches. She denies any nausea or vomiting. However, her dyspnea is worse today. She has been diuresing very well and has remained in negative fluid balance. PHYSICAL EXAMINATION: The patient is sitting in the chair and seems quite tachypneic. Temperature is 96.9 degrees Fahrenheit, heart rate 76 per minute and respiratory rate 22 per minute. Blood pressure 128/60 mmHg and oxygen saturation is 100% on 3 liters oxygen. Intake and output records from yesterday showed total intake 1500 and output 2850. Her neck veins are difficult to be assessed. Ears, nose and throat are unremarkable. Pupils equal and reactive to light and sclera is anicteric. Head is atraumatic. Neck is supple and without any thyroid enlargement. Trachea is midline. Lungs have diminished breath sounds bilaterally. Heart: Sounds are irregular in rhythm. Abdomen: Obese and nontender. Abdominal wall edema is unchanged. Lower extremity edema is now limited to [id number] area and she still has erythema on both legs and feet. Neurologically she is awake, alert and oriented times three. She has no focal neurological deficit. Today's labs show WBC count 10.9, hemoglobin 8.3 and hematocrit 29.8. Platelets 318. Sodium 139 and potassium 3.8. CO2 35, chloride 96, BUN 26 and creatinine 1.2. Glucose 140 and calcium 8.8. PROBLEMS: 1. Acute kidney injury superimposed on chronic kidney disease. The patient has been in significant negative fluid balance. Slight increase in BUN and creatinine is related to negative fluid balance. We will continue to monitor her kidney function closely. 2. Metabolic alkalosis and hypokalemia. Her alkalosis has improved and hypokalemia has also improved. Acetazolamide is being stopped. She will continue with Lasix and spironolactone as previously. Her potassium supplement will also be continued. I am going to cut down the Lasix dose to 40 mg every 8 hours. 3. Anemia. Her anemia is essentially unchanged. We will continue to monitor without any intervention. 4. Shortness of breath. This is multifactorial and related to her morbid obesity and congestive heart failure. Volume status has improved significantly over the last few days with loss of about 12 kg weight. She remains on chronic oxygen supplementation.
[2016-04-18] MEDS: **NOTE PATIENT COMMENT** MISC XX SCH (20:44)
[2016-04-19] VITALS (9 sets, daily range): BP systolic 112–124; BP diastolic 55–75; O2SAT 96
[2016-04-19] MEDS: FUROSEMIDE 40 MG/4 ML VIAL (J1940) IV SCH ×2 (02:08→10:00)
[2016-04-19] MEDS: SLF 3 ML SYR IV SCH ×3 (05:19→20:31)
[2016-04-19 07:04] LABS: BASO # 0.1 K/mm3 (0.0-0.2); BASO % 0.9 % (0.0-1.0); EOS # 0.2 K/mm3 (0.0-0.50); EOS % 1.6 % (0.0-3.0); LARGE UNSTAINED CELL # 0.2 K/mm3 (0.0-0.4); LARGE UNSTAINED CELL % 1.6 % (0.0-4.0); LYMPH # 1.1 K/mm3 (1.5-4.5); LYMPH % 6.6 % (24.0-44.0); MEAN CORPUSCULAR HEMOGLOBIN 28.5 pg (27.0-33.0); MEAN CORPUSCULAR HGB CONC 27.9 g/dl (32.0-36.5); MONO # 0.8 K/mm3 (0.0-0.8); MONO % 6.1 % (0.0-5.0); NEUTROPHILS % 83.3 % (36.0-66.0); PLATELET COUNT, AUTOMATED 291 k/mm3 (150-450); RED CELL DISTRIBUTION WIDTH 24.5 % (11.5-14.5); WHITE BLOOD COUNT 13.2 K/mm3 (4.0-10.0)
[2016-04-19 07:38] LABS: ALBUMIN/GLOBULIN RATIO 0.65 (1.00-1.93); BILIRUBIN,TOTAL 0.9 MG/DL (0.2-1.0); CALCIUM LEVEL 8.8 MG/DL (8.8-10.2); CREATININE FOR GFR 1.23 MG/DL (0.55-1.02); GLOMERULAR FILTRATION RATE 46.5 (>45); POTASSIUM SERUM 3.9 MEQ/L (3.5-5.1); TOTAL PROTEIN 7.6 GM/DL (6.4-8.2)
[2016-04-19] MEDS: TIOTROPIUM INHALER/CAPSULE (SPIRIVA) INH SCH (07:54)
[2016-04-19] MEDS: BREO ELLIPTA INH SCH (07:54)
[2016-04-19] MEDS: IPRATROPIUM 0.5MG/ALBUTEROL 2.5MG INH SOL UD 3ML (DUONEB)(J7620) NEB SCH ×4 (07:54→19:51)
[2016-04-19] MEDS: POTASSIUM CHLORIDE 10 MEQ SR TABLET PO SCH ×3 (08:08→20:29)
[2016-04-19] MEDS: LIDOCAINE 5% (LIDODERM) PATCH TD SCH (08:08)
[2016-04-19] MEDS: HumaLOG INSULIN (NovoLOG) PER UNIT SC SCH ×4 (08:08→20:30)
[2016-04-19] MEDS: CEFEPIME HCL 1 GM in D5W MINI-BAG PLUS 50 ML IV SCH ×2 (08:08→20:30)
[2016-04-19] MEDS: NYSTATIN 100,000 UNITS/GM TOPICAL PWD 15 GM TOP SCH ×2 (08:09→20:30)
[2016-04-19] MEDS: METOPROLOL TART 12.5 MG PER 1/2 TAB PO SCH ×2 (08:09→20:29)
[2016-04-19] MEDS: ATORVASTATIN 20 MG TAB PO SCH (08:09)
[2016-04-19] MEDS: SPIRONOLACTONE 25 MG TAB PO SCH ×2 (08:09→16:17)
[2016-04-19] MEDS: ASPIRIN 81 MG ENTERIC TAB PO SCH (08:09)
[2016-04-19] MEDS: MULTIVITAMINS/MINERALS THERAP 1 TAB PO SCH (08:09)
[2016-04-19] MEDS: PANTOPRAZOLE 40MG TAB (PROTONIX) PO SCH (08:09)
[2016-04-19] MEDS: FERROUS SULFATE 325MG TAB PO SCH ×2 (08:10→20:29)
[2016-04-19] MEDS: DABIGATRAN ETEXILATE 75 MG CAP (PRADAXA) PO SCH ×2 (08:10→20:29)
[2016-04-19] MEDS: ASCORBIC ACID 500 MG TAB PO SCH ×2 (08:10→17:40)
[2016-04-19] MEDS: DOCUSATE SODIUM 100 MG CAP PO PRN (08:11)
[2016-04-19] MEDS: LORATADINE 10 MG TAB PO PRN (08:11)
[2016-04-19] MEDS: CEPACOL LOZENGE PO PRN ×2 (10:27→23:20)
[2016-04-19] MEDS: PERCOCET 5MG/325MG TAB PO PRN ×2 (11:29→23:19)
[2016-04-19 12:36] LABS: MEAN CORPUSCULAR HGB CONC 28.1 g/dl (32.0-36.5); MEAN CORPUSCULAR VOLUME 103.5 fl (80.0-96.0); RED CELL DISTRIBUTION WIDTH 24.5 % (11.5-14.5); WHITE BLOOD COUNT 13.8 K/mm3 (4.0-10.0)
--- NOTE | 2016-04-19 13:40 | IPN ---
DATE: 04/19/2016 SUBJECTIVE: Ms. Magaña is a 66-year-old female who was seen and examined at the bedside. Patient denies any chest pain, however, patient has orthopnea and paroxysmal nocturnal dyspnea (PND). The patient at this time is on 2 liters nasal cannula. Patient says that she feels better today and patient has received 2 units of red blood cells yesterday. The patient denies overnight issues. OBJECTIVE: VITAL SIGNS: Temperature 97.2, pulse 91, respiratory rate 19, blood pressure 115/55, pulse oximetry 95% on 4 liters nasal cannula. GENERAL APPEARANCE: Patient was sitting on the chair in no acute distress. Patient was awake, alert, and oriented to time, place, and person. HEENT: Normocephalic, atraumatic. HEART: Irregular. Normal S1, S2. LUNGS: Patient has distended breath sounds at the base of the lung. Patient has however good air movement . ABDOMEN: Morbidly obese, soft, nontender. Positive bowel sounds in all quadrants. EXTREMITIES: Patient has lower extremity edema bilaterally, as well as, +2 pulses in both lower extremities. Patient continues to have erythema bilaterally; however it has decreased compared to yesterday, as well as less painful to palpation compared to yesterday. LABORATORY DATA: White blood cells 13.2,, red blood cells 3.07, hemoglobin 8.7 , hematocrit 31.3, MCV 102, MCH 28.5, MCHC 27.9, RDW 24.5, platelet count 291, neutrophil percentage 83.3, lymphocyte percentage 6.6, monocyte percentage 6.1, eosinophil percentage 1.6, basophil percentage 0.9, leukocyte percentage 1.6. Sodium 137, potassium 3.9, chloride 98, carbon dioxide 31, anion gap 8, BUN 39, creatinine 1.23, glomerular filtration 46.5, fasting glucose 144, calcium 8.8, total bilirubin 0.9, AST 21, ALT 16, alkaline phosphatase 74, total protein 7.6, albumin 3. Urine culture is pending at this time. Urinalysis (UA) from yesterday with urine color yellow, urine appearance hazy, urine pH 5, urine specific gravity 1.016, urine protein 2+, urine glucose negative, urine ketone negative, urine blood 3+, urine nitrite negative, urine bilirubin negative, urine urobilinogen 2, urine leukocyte esterase 2+, urine white blood cells too many to count, urine red blood cells too many to count, urine hyaline casts 0, urine bacteria 2+, urine epithelial cells 0. ASSESSMENT AND PLAN: 1. Abnormal UA. UA which was performed yesterday was indicative of urinary tract infection (UTI); however the urine culture is pending at this time. We have started patient on Cefepime and we have stopped ceftriaxone. Also we have discontinued the Osorio and patient is stable at this time. 2. Shortness of breath. At this time, patient is on 4 liters nasal cannula which is increased compared to her baseline. This is multifocal, which include her congestive heart failure, as well as, obesity and history of community acquired pneumonia. Patient is on diuretic medication. Patient has finished a course for community acquired pneuomnia. Chest x-ray which was performed yesterday was negative for any new pathology. 3. Cellulitis. The patient still continues to have lower extremity erythema bilaterally. Patient was on ceftriaxone, however, due to positive UA and possibility of UTI, we have changed it Cefepime. Also we have ordered blood culture and result is pending at this time. We will continue to monitor patient for any abnormal symptoms. 4. Anasarca. This is possibly secondary to diastolic congestive heart failure. The patient is on diuretics at this time. The patient's liver function is normal at this time. 5. Acute on chronic diastolic congestive heart failure. Patient is on diuretic (Lasix 40 mg every 8 hours IV), as well as, Spironolactone 25 mg twice a day by mouth. We will continue monitoring input and output. 6. Acute on chronic respiratory failure with hypoxia. This is multifactorial, possibly secondary to exacerbation of congestive heart failure as well as community acquired pneumonia. The patient is on nasal cannula at this time on 4 liters which is higher than her usual baseline. The patient is also on diuretics and antibiotic. Will continue monitoring patient. 7. Community acquired pneumonia. The patient has finished has a course of Ceftriaxone. 8. Constipation. Patient is on bowel regimen. 9. Obstructive sleep apnea. This is a chronic issue. 10. Morbidly obese. This is a chronic issue. 11. Diabetes. Will continue patient on sliding scale as well as consistent carbohydrate diet. 12. Hypertension. Patient is stable. This is a chronic issue. Will continue patient on Lasix and spironolactone. Patient is also on beta alfreda. 13. Chronic obstructive pulmonary disease (COPD). Patient is on breathing treatment as well as oxygen nasal cannula. 14. Coronary artery disease. Patient is on statin, as well as beta alfreda. At this time, patient is also on Pradaxa. 15. Hyperlipidemia. Patient is on statin. 16. Mitral stenosis. This is a chronic issue. 17. Pulmonary hypertension. Patient is on Lasix and spironolactone. 18. Atrial fibrillation. Will continue patient on Pradaxa, as well as beta alfreda. Patient's rate is controlled. 19. Chronic anemia. Patient received 2 units of red blood cells yesterday. 20. Anemia. Will continue patient on ferrous sulfate. The patient is stable. 21. Allergies. Patient is on loratadine; however, patient does not have any allergy signs or symptoms. 22. Hematuria. Patient's Osorio was removed yesterday. UA which was collected yesterday shows patient has hematuria. We will continue monitoring patient for any abnormal symptoms. Also will continue patient's hemoglobin and hematocrit. However, at this time, patient is stable. 23. Deep vein thrombosis (DVT) prophylaxis. Patient is on Pradaxa. My preceptor for this patient encounter was Dr. Huggins. The preceptor was physically present in the building during the encounter and was fully available. As needed, all aspects of the patient interview, examination, medical decision making process, and medical care plan development were reviewed and approved by the preceptor. The preceptor is aware and concurs with the plan as stated in the body of this note and will attest to such by his/her cosignature. I, Matthew Huggins, have both independently examined this patient as well as reviewed the documentation. I have discussed in detail with the resident the findings and plan of treatment as documented in the residents documentation. I will continue to follow the patient and offer further guidance to the patients care as necessary during this hospital stay. ADELE
--- NOTE | 2016-04-19 15:12 | IPN ---
DATE: 04/18/2016 SUBJECTIVE: Ms. Magaña is a 66-year-old female who was seen and examined at the bedside. Patient expressed that yesterday she had one episode of oxygen desatting around the 70s when she was ambulating; however, when she sat down her oxygen saturation came back to a normal level. At this time, the patient is on 4 liters nasal cannula. The patient denies overnight issues. The patient denies chest pain; however, the patient expressed that she has orthopnea and paroxysmal nocturnal dyspnea (PND). The patient expressed that she feels her lower extremities got better today compared to yesterday; however, patient continues to have lower extremity edema and continues to have lower extremity erythema. However, the pain has decreased compared to yesterday. The patient denies nausea or vomiting. PHYSICAL EXAMINATION: VITAL SIGNS: Temperature 97.5, pulse 99, respiratory rate 21, blood pressure 131/76, pulse oximetry 89% on 2 liters nasal cannula. GENERAL APPEARANCE: Patient was sitting on the chair in no acute distress. Patient was awake, alert, and oriented to time, place, and person. HEENT: Normocephalic, atraumatic. Pupils are equal. Oral mucosa moist. NECK: Soft. Supple. Jugular venous distention (JVD) cannot be evaluated due to morbidly obese. LUNGS: Good air movement. No wheezing. HEART: Irregular heart sounds. ABDOMEN: Morbidly obese. Positive bowel sounds in all quadrants. No tenderness to palpation. EXTREMITIES: Lower extremity edema bilaterally, +2 pulses in both lower extremities. Patient has erythema in both lower extremities, possibly due to cellulitis. LABORATORY DATA: White blood cells 11.7, red blood cells 2.37, hemoglobin 7.8, hematocrit 28.1, MCV 103, MCH 28.4, MCHC 27.6, RDW 23.3, platelet count 297, neutrophil percentage 83.3, lymphocyte percentage 6.3, monocyte percentage 5.7, eosinophil percentage 2, basophil percentage 0.9, leukocyte percentage 1.8. Sodium 140, potassium 3.7, chloride 98, carbon dioxide 34, anion gap 8, BUN 31, creatinine 1.13, glomerular filtration 51.3, fasting glucose 137, lactic acid 1.3, calcium 8.6, total bilirubin 0.5, AST 19, ALT 18, alkaline phosphatase 72, total protein 7, albumin 2.9. Blood culture is pending. IMAGING: Liver ultrasound which was performed on 04/12/2016 shows cholelithiasis with gallbladder wall thickening, slightly irregular liver contour, no ascites seen on the ultrasound. ASSESSMENT AND PLAN: 1. Leukocytosis. Today, patient's white blood cells have increased to 11.7. We have ordered urinalysis, urine culture, blood culture and chest x-ray. Result is pending at this time. Also we have ordered lactic acid level; however, the result is pending. Patient is on ceftriaxone due to possibility of cellulitis; however, we are monitoring the patient for other possibilities. 2. Cellulitis. Patient is on ceftriaxone at this time. According to the patient, his erythema has decreased; however, patient continues to have pain mostly on the right foot with palpation; however, pain has decreased. 3. Anasarca. This is possibly secondary to diastolic congestive heart failure. At this time, the patient is on diuretics (Lasix 40 mg every 8 hours IV as well as spironolactone 25 mg twice a day by mouth). 4. Acute on chronic diastolic congestive heart failure. Will continue patient diuresis. Will continue monitoring patient's weight. Patient so far has total negative balance. Also continue patient on fluid restriction (1500 mL). 5.Community acquired pneumonia. It has resolved. Patient completed a course of ceftriaxone. 6. Constipation. It has resolved. Patient is on bowel regimen. 7. Obstructive sleep apnea. This is a chronic issue. At this time the patient is stable. 8. Morbidly obese. Chronic. 9. Diabetes. This is a chronic issue. Patient is on sliding scale as well as consistent carbohydrate diet. 10. Hypertension. This is a chronic issue. Will continue patient on Lasix and spironolactone as well as Lopressor. 11. Chronic obstructive pulmonary disease (COPD). Will continue patient on breathing treatment. Patient is also on nasal cannula; however, patient is at her baseline (2 liters). 12. Coronary artery disease. This is a chronic issue. Will continue patient on aspirin, Pradaxa. Patient is also on beta alfreda and Lipitor. 13. Hyperlipidemia. Patient is on Lipitor. 14. Mitral stenosis and incompetence. At this time, we are diuresing the patient. 15. Pulmonary hypertension. This is a chronic issue. Will continue with diuresing patient. 16. Atrial fibrillation. Patient is on Pradaxa, as well as, aspirin. Patient also is on beta alfreda. 17. Chronic anemia. This is a chronic issue. Patient is on ferrous sulfate as well as Aranesp 100 mcg by mouth. Today, patient's hemoglobin and hematocrit has decreased. We will transfuse 2 units of red blood cells. 18. Allergies. This is a chronic issue. Patient is asymptomatic. Will continue patient on loratadine. 19. Hematuria. Today patient continued to have mild hematuria. We have discontinued the Osorio today. We held the Pradaxa dose for this morning. We will reevaluate patient again. 20. Deep vein thrombosis (DVT) prophylaxis. Patient is on Pradaxa. 21. Cough and sore throat. I started patient on Cepacol Q3HP as needed for sore throat. My preceptor for this patient encounter was Dr. Huggins. The preceptor was physically present in the building during the encounter and was fully available. As needed, all aspects of the patient interview, examination, medical decision making process, and medical care plan development were reviewed and approved by the preceptor. The preceptor is aware and concurs with the plan as stated in the body of this note and will attest to such by his/her cosignature. I, Matthew Huggins, have both independently examined this patient as well as reviewed the documentation. I have discussed in detail with the resident the findings and plan of treatment as documented in the residents documentation. I will continue to follow the patient and offer further guidance to the patients care as necessary during this hospital stay. ADELE
[2016-04-19] MEDS: TORSEMIDE 100 MG TAB PO SCH (16:17)
--- NOTE | 2016-04-19 19:52 | IPN ---
DATE: 04/18/2016 SUBJECTIVE: Ms. Magaña is seen this morning on her bedside. She is sitting in the chair. She reports feeling better compared with yesterday. She still has shortness of breath and peripheral edema. However, she reports that her pains and aches are better. She did not try to walk today. However, she did her exercise in the chair. She denies any cough or hemoptysis. She has no fever or chills. She has no nausea or vomiting. PHYSICAL EXAMINATION VITAL SIGNS: Temperature is 97.5 degrees Fahrenheit, heart rate 82 per minute and respiratory rate 20 per minute. She is sitting in the chair. HEENT: Head is atraumatic. Ears, nose and throat are unremarkable. NECK: Neck veins are not visible. Trachea is midline and there is no thyroid enlargement. HEART: Sounds are distant and irregular. RESPIRATORY: Lungs have moderate bilateral air entry. ABDOMEN: Obese and nontender. EXTREMITIES: Have no cyanosis or clubbing. Lower extremity edema and erythema are limited to below the knees. Intake and output records from yesterday showed total intake 1130, and output 3900. LABORATORY DATA: Today's labs show WBC count 11.6, hemoglobin 7.8 and hematocrit 27. Sodium 140 and potassium 3.7. BUN 31 and creatinine 1.13. Calcium level is 8.6 and lactic acid 1.3. PROBLEMS: 1. Acute kidney injury superimposed on chronic kidney disease. Kidney function is stable and slight improvement since yesterday noted. We will continue to monitor her kidney function on a daily basis. 2. Acute on chronic systolic and diastolic congestive heart failure. Volume status has improved significantly over the last several days. She has diuresed at least about 11 kg since April 11. We will continue with current diuretic and aim for a negative fluid balance of about 1-2 liters per day now. Her metolazone has been stopped and acetazolamide has been stopped. Her Lasix dose has been changed to 40 mg every eight hours and she continues with spironolactone 25 mg twice a day. 3. Anemia. Her anemia is worsening and I have discussed with hospitalist service and recommended transfusion of two units of packed red blood cells. 4. Generalized weakness and deconditioning. The patient has morbid obesity which is her major limiting factor, along with back pain and chronic hypoxemia. She will require occupational and physical therapy.
[2016-04-19] MEDS: **NOTE PATIENT COMMENT** MISC XX SCH (20:30)
[2016-04-20] MEDS: SLF 3 ML SYR IV SCH ×3 (05:00→20:45)
[2016-04-20 06:00] VITALS: BP 118/57
[2016-04-20 06:57] LABS: BASO % 0.4 % (0.0-1.0); EOS # 0.2 K/mm3 (0.0-0.50); EOS % 1.5 % (0.0-3.0); LARGE UNSTAINED CELL # 0.2 K/mm3 (0.0-0.4); LARGE UNSTAINED CELL % 1.6 % (0.0-4.0); LYMPH # 0.8 K/mm3 (1.5-4.5); LYMPH % 6.4 % (24.0-44.0); MEAN CORPUSCULAR HEMOGLOBIN 29.8 pg (27.0-33.0); MEAN CORPUSCULAR HGB CONC 29.8 g/dl (32.0-36.5); MEAN CORPUSCULAR VOLUME 100.1 fl (80.0-96.0); MONO # 0.7 K/mm3 (0.0-0.8); MONO % 5.5 % (0.0-5.0); NEUTROPHILS # 10.6 K/mm3 (1.8-7.7); NEUTROPHILS % 84.6 % (36.0-66.0); PLATELET COUNT, AUTOMATED 296 k/mm3 (150-450); RED CELL DISTRIBUTION WIDTH 22.6 % (11.5-14.5); WHITE BLOOD COUNT 12.5 K/mm3 (4.0-10.0)
[2016-04-20 07:14] LABS: ALBUMIN 2.9 GM/DL (3.2-5.2); ALBUMIN/GLOBULIN RATIO 0.6 (1.00-1.93); BILIRUBIN,TOTAL 0.7 MG/DL (0.2-1.0); CALCIUM LEVEL 8.5 MG/DL (8.8-10.2); CREATININE FOR GFR 1.23 MG/DL (0.55-1.02); GLOMERULAR FILTRATION RATE 46.5 (>45); POTASSIUM SERUM 3.8 MEQ/L (3.5-5.1); TOTAL PROTEIN 7.7 GM/DL (6.4-8.2)
[2016-04-20] MEDS: IPRATROPIUM 0.5MG/ALBUTEROL 2.5MG INH SOL UD 3ML (DUONEB)(J7620) NEB SCH ×4 (08:00→19:44)
[2016-04-20] MEDS: TIOTROPIUM INHALER/CAPSULE (SPIRIVA) INH SCH (08:04)
[2016-04-20] MEDS: BREO ELLIPTA INH SCH (08:05)
[2016-04-20] MEDS: HumaLOG INSULIN (NovoLOG) PER UNIT SC SCH ×4 (08:11→20:43)
[2016-04-20] MEDS: DOCUSATE SODIUM 100 MG CAP PO PRN (08:11)
[2016-04-20] MEDS: FERROUS SULFATE 325MG TAB PO SCH ×2 (08:11→20:42)
[2016-04-20] MEDS: LORATADINE 10 MG TAB PO PRN (08:11)
[2016-04-20] MEDS: DABIGATRAN ETEXILATE 75 MG CAP (PRADAXA) PO SCH ×2 (08:11→20:42)
[2016-04-20] MEDS: ATORVASTATIN 20 MG TAB PO SCH (08:11)
[2016-04-20] MEDS: PANTOPRAZOLE 40MG TAB (PROTONIX) PO SCH (08:12)
[2016-04-20] MEDS: POTASSIUM CHLORIDE 10 MEQ SR TABLET PO SCH ×3 (08:12→20:42)
[2016-04-20] MEDS: SPIRONOLACTONE 25 MG TAB PO SCH ×2 (08:12→17:43)
[2016-04-20] MEDS: ASPIRIN 81 MG ENTERIC TAB PO SCH (08:12)
[2016-04-20] MEDS: MULTIVITAMINS/MINERALS THERAP 1 TAB PO SCH (08:12)
[2016-04-20] MEDS: ASCORBIC ACID 500 MG TAB PO SCH ×2 (08:12→17:43)
[2016-04-20] MEDS: TORSEMIDE 100 MG TAB PO SCH ×2 (08:12→17:43)
[2016-04-20] MEDS: METOPROLOL TART 12.5 MG PER 1/2 TAB PO SCH ×2 (08:13→20:44)
[2016-04-20] MEDS: CEFEPIME HCL 1 GM in D5W MINI-BAG PLUS 50 ML IV SCH ×2 (08:13→20:44)
[2016-04-20] MEDS: LIDOCAINE 5% (LIDODERM) PATCH TD SCH (08:14)
[2016-04-20] MEDS: NYSTATIN 100,000 UNITS/GM TOPICAL PWD 15 GM TOP SCH ×2 (08:14→20:45)
[2016-04-20] MEDS: PERCOCET 5MG/325MG TAB PO PRN ×2 (12:24→20:43)
[2016-04-20 14:00] VITALS: BP 150/70
[2016-04-20] MEDS ORDERED: FLUCONAZOLE 50MG TABLET PO ONE (15:00)
--- NOTE | 2016-04-20 15:09 | IPN ---
DATE: 04/19/2016 Ms. Magaña is seen this morning on her bedside. She is sitting in the chair at the time of my visit. She reports improved dyspnea. She denies any nausea or vomiting. She does have some leg edema. PHYSICAL EXAMINATION: Temperature 97.2 degrees Fahrenheit, heart rate 90 per minute and respiratory rate 18 per minute. Blood pressure 115/55 mmHg and oxygen saturation 95%. She has been on 3-4 liters of oxygen via nasal cannula. Her head is atraumatic. Pupils are equal and reactive to light and sclera is anicteric. Ears, nose and throat are unremarkable. Neck is supple and jugular venous distention (JVD) is difficult to be assessed. There is no thyroid enlargement and trachea is midline. Heart sounds are distant. Lungs with moderate bilateral air entry. Abdomen is obese and nontender. Abdominal wall edema is present. Extremities have no cyanosis or clubbing. Lower extremity edema is limited to below the knees and chronic erythema and stasis changes are present. Neurologically she is awake, alert and oriented times three. She has no focal deficit. Intake and output records from yesterday are negative by 1 liter. Her weight is down to 161 kg, while her maximum weight was 175 kg on 04/11/2016 and 04/12/2016. PROBLEMS: 1. Acute on chronic congestive heart failure. The patient has known history of combined congestive heart failure. She has diuresed very well. She does have some right-sided heart failure and we have slowed down on the diuretics. Currently she is receiving IV Lasix 80 mg and we can switch her to oral torsemide 100 mg twice a day. She will continue with spironolactone 25 mg twice a day. 2. Acute kidney injury superimposed on chronic kidney disease. Her kidney function has been mostly stable with slight fluctuations in BUN and creatinine. At present we will monitor without any other intervention. Slight increase in BUN and creatinine is anticipated with diuresis. 3. Anemia. She received 2 units of packed red blood cells (RBCs) and has slight improvement in her anemia with hemoglobin up to 8.7. She has been given Aranesp 100 mcg every Sunday, which will be continued. 4. Morbid obesity and chronic obstructive pulmonary disease (COPD). Her obesity is a chronic issue. Chronic obstructive pulmonary disease (COPD) seems to be much improved.
--- NOTE | 2016-04-20 15:59 | REP ---
BILATERAL LOWER EXTREMITY DUPLEX VEINS: HISTORY: Swelling. The examination is limited secondary to the patient's body habitus. There are no definite filling defects in the deep venous system. The deep venous system is patent. IMPRESSION: There is no definite deep venous thrombosis. Left lower extremity: The examination is limited secondary to the patient's body habitus. There are no definite filling defects in the deep venous system. The deep venous system is patent. IMPRESSION: There is no definite deep venous thrombosis. Signed by Simón Mistry MD 04/20/2016 04:03 P
[2016-04-20 20:20] VITALS: BP 143/56
[2016-04-20] MEDS: **NOTE PATIENT COMMENT** MISC XX SCH (20:45)
[2016-04-21 05:20] VITALS: BP 126/61
[2016-04-21] MEDS: SLF 3 ML SYR IV SCH ×3 (05:57→20:26)
[2016-04-21] MEDS: BREO ELLIPTA INH SCH (07:47)
[2016-04-21] MEDS: TIOTROPIUM INHALER/CAPSULE (SPIRIVA) INH SCH (07:47)
[2016-04-21] MEDS: IPRATROPIUM 0.5MG/ALBUTEROL 2.5MG INH SOL UD 3ML (DUONEB)(J7620) NEB SCH ×4 (07:48→19:46)
[2016-04-21] MEDS: ATORVASTATIN 20 MG TAB PO SCH (07:57)
[2016-04-21] MEDS: HumaLOG INSULIN (NovoLOG) PER UNIT SC SCH ×4 (07:57→20:25)
[2016-04-21] MEDS: CEFEPIME HCL 1 GM in D5W MINI-BAG PLUS 50 ML IV SCH ×2 (07:57→20:24)
[2016-04-21] MEDS: ASCORBIC ACID 500 MG TAB PO SCH ×2 (07:58→17:28)
[2016-04-21] MEDS: ASPIRIN 81 MG ENTERIC TAB PO SCH (07:58)
[2016-04-21] MEDS: METOPROLOL TART 12.5 MG PER 1/2 TAB PO SCH ×2 (07:58→20:24)
[2016-04-21] MEDS: PANTOPRAZOLE 40MG TAB (PROTONIX) PO SCH (07:58)
[2016-04-21] MEDS: FERROUS SULFATE 325MG TAB PO SCH ×2 (07:58→20:25)
[2016-04-21] MEDS: SPIRONOLACTONE 25 MG TAB PO SCH ×2 (07:58→16:26)
[2016-04-21] MEDS: POTASSIUM CHLORIDE 10 MEQ SR TABLET PO SCH ×3 (07:59→20:25)
[2016-04-21] MEDS: MULTIVITAMINS/MINERALS THERAP 1 TAB PO SCH (07:59)
[2016-04-21] MEDS: TORSEMIDE 100 MG TAB PO SCH ×2 (07:59→16:27)
[2016-04-21] MEDS: NYSTATIN 100,000 UNITS/GM TOPICAL PWD 15 GM TOP SCH ×2 (08:00→20:26)
[2016-04-21] MEDS: LIDOCAINE 5% (LIDODERM) PATCH TD SCH (08:00)
[2016-04-21] MEDS: LORATADINE 10 MG TAB PO PRN (08:03)
[2016-04-21] MEDS: DOCUSATE SODIUM 100 MG CAP PO PRN (08:03)
[2016-04-21 08:25] LABS: ALBUMIN 3.2 GM/DL (3.2-5.2); ALBUMIN/GLOBULIN RATIO 0.74 (1.00-1.93); BILIRUBIN,TOTAL 0.8 MG/DL (0.2-1.0); CALCIUM LEVEL 8.6 MG/DL (8.8-10.2); CREATININE FOR GFR 1.24 MG/DL (0.55-1.02); GLOMERULAR FILTRATION RATE 46.1 (>45); MAGNESIUM LEVEL 2.4 MG/DL (1.8-2.4); PHOSPHORUS LEVEL 3.5 MG/DL (2.5-4.9); POTASSIUM SERUM 4.1 MEQ/L (3.5-5.1); TOTAL PROTEIN 7.5 GM/DL (6.4-8.2)
[2016-04-21 08:28] LABS: BASO % 0.3 % (0.0-1.0); EOS # 0.2 K/mm3 (0.0-0.50); EOS % 1.4 % (0.0-3.0); LARGE UNSTAINED CELL # 0.2 K/mm3 (0.0-0.4); LARGE UNSTAINED CELL % 1.5 % (0.0-4.0); LYMPH # 0.8 K/mm3 (1.5-4.5); LYMPH % 7.2 % (24.0-44.0); MEAN CORPUSCULAR HEMOGLOBIN 29.6 pg (27.0-33.0); MEAN CORPUSCULAR VOLUME 98.6 fl (80.0-96.0); MONO # 0.7 K/mm3 (0.0-0.8); MONO % 5.9 % (0.0-5.0); NEUTROPHILS # 9.4 K/mm3 (1.8-7.7); NEUTROPHILS % 83.5 % (36.0-66.0); PLATELET COUNT, AUTOMATED 267 k/mm3 (150-450); WHITE BLOOD COUNT 11.3 K/mm3 (4.0-10.0)
--- NOTE | 2016-04-21 08:37 | IPN ---
DATE: 04/20/2016 SUBJECTIVE: Ms. Magaña is a 66-year-old female who was seen and examined at the bedside. The patient denies chest pain; however, the patient has orthopnea and paroxysmal nocturnal dyspnea. The patient denies nausea and vomiting. The patient, at this time, is on 4 liters nasal cannula. The patient expressed that she has lower extremity pain bilaterally. OBJECTIVE: VITAL SIGNS: Temperature 97.4, pulse 79, respiratory rate 18, blood pressure 118/57, pulse oximetry 97% on 4 liters nasal cannula. GENERAL APPEARANCE: The patient was sitting in a chair. No acute distress. The patient was alert and oriented to time, place and person. HEENT: Normocephalic, atraumatic. HEART: Irregular. Normal S1, S2. LUNGS: The patient has clear breath sounds bilaterally. Good air movement. ABDOMEN: Morbidly obese, soft, nontender to palpation. Positive bowel sounds in all quadrants. EXTREMITIES: The patient has lower extremity edema bilaterally. +2 pulses in both lower extremities; however, the patient has tenderness to palpation below the knee, especially in the erythematous area. The patient has bilateral lower extremity edema. LABORATORY DATA: White blood cells 12.5, red blood cells 3.02, hemoglobin 9, hematocrit 30.2, MCV 100.1, MCH 29.8, MCHC 29.8, RDW 22.6, platelet count 296, neutrophil percentage 84.6, lymphocyte percentage 6.2, monocyte percentage 5.5, eosinophil percentage 1.5, basophil percentage 0.4, leukocyte percentage 1.6. Sodium 138, potassium 3.8, chloride 98, carbon dioxide 35, anion gap 5, BUN 38, creatinine 1.23, GFR 46.5, fasting glucose 130, calcium 8.5, total bilirubin 0.7 , AST 24, ALT 17, alkaline phosphatase 72, total protein 7.7, albumin 2.9. Urine culture negative. Blood culture came back negative. ASSESSMENT AND PLAN: 1. Vaginal candidiasis. The patient complained about having vaginal pruritus. The patient has been having vaginal candidiasis in the past. We gave one dose of Diflucan 150 mg by mouth. Although the patient has finding of liver cirrhosis; however, liver functions are normal at this time. We will continue monitoring the patient's liver function again tomorrow. 2. Abnormal urinalysis, which was performed 2 days ago and was indicative of urinary tract infection (UTI); however, urine culture was negative. At this time, the patient is on cefepime. We will continue to monitor the patient for any abnormal symptoms. 3. Dyspnea. At this time, the patient is on 4 liters nasal cannula. Her baseline is around 3 liters. This is multifactorial, which includes congestive heart failure (CHF), as well as obesity and history of community acquired pneumonia. The patient is on diuretic medications. The patient has been started on torsemide 100 mg twice a day by mouth yesterday by nephrology group and Lasix has been stopped. However, we will continue the patient on spironolactone 25 mg twice a day by mouth. 4. Cellulitis. The patient continues to have lower extremity erythema. At this time, the patient is on cefepime. Due to having continuation of the pain and the patient not being mobile and due to high risk of deep vein thrombosis (DVT), I have ordered lower extremity ultrasound, result is pending at this time. 5. Anasarca. This is probably secondary to diastolic congestive heart failure (CHF). We will continue the patient on diuretics. Liver function is normal. 6. Acute on chronic diastolic congestive heart failure (CHF). The patient is on diuretics (torsemide 100 mg twice a day by mouth, as well as spironolactone). We will continue to monitor the patient's input and output. 7. Acute on chronic respiratory failure with hypoxia. This is multifactorial secondary to exacerbation of the congestive heart failure (CHF), as well as history of community acquired pneumonia. We will continue the patient on nasal cannula. However, the patient, at this time, is not at her baseline. 8. Community acquired pneumonia. The patient has finished a course of ceftriaxone. 9. Constipation. The patient is on bowel regimen. 10. Obstructive sleep apnea. This is a chronic issue. 11. Morbid obesity. This is a chronic issue. 12. Diabetes. We will continue the patient on sliding scale, as well as consistent carbohydrate diet. 13. Hypertension. The patient is stable. We will continue the patient on diuretics, as well as beta alfreda. 14. Chronic obstructive pulmonary disease (COPD). The patient is on breathing treatments, as well as oxygen nasal cannula. 15. Coronary artery disease. The patient is on aspirin, statin, beta alfreda, and Pradaxa. 16. Hyperlipidemia. The patient is on a statin. 17. Mitral stenosis. This is a chronic issue. 18. Pulmonary hypertension. The patient is on torsemide, as well as spironolactone. 19. Atrial fibrillation. The patient is on Pradaxa, aspirin, as well as beta alfreda (Lopressor 12.5 mg twice a day by mouth). 20. Chronic anemia. The patient received 2 units of red blood cells 2 days ago. At this time, the patient's hemoglobin and hematocrit are stable.patient also started on Aranesp by nephrology group. 21. Allergies. The patient is on loratadine. 22. Hematuria. The patient did not report any hematuria. The patient's hemoglobin and hematocrit are stable. 23. Deep vein thrombosis (DVT) prophylaxis. The patient is on Pradaxa. My preceptor for this patient encounter was Dr. Huggins. The preceptor was physically present in the building during the encounter and was fully available. As needed, all aspects of the patient interview, examination, medical decision making process, and medical care plan development were reviewed and approved by the preceptor. The preceptor is aware and concurs with the plan as stated in the body of this note and will attest to such by his/her cosignature. I, Matthew Huggins, have both independently examined this patient as well as reviewed the documentation. I have discussed in detail with the resident the findings and plan of treatment as documented in the residents documentation. I will continue to follow the patient and offer further guidance to the patients care as necessary during this hospital stay. ADELE
[2016-04-21] MEDS: DABIGATRAN ETEXILATE 75 MG CAP (PRADAXA) PO SCH ×2 (09:48→20:25)
[2016-04-21] MEDS: PERCOCET 5MG/325MG TAB PO PRN ×2 (10:32→21:33)
[2016-04-21] MEDS ORDERED: CALCIUM GLUCONATE 1,000 MG in D5W MINI-BAG PLUS 100 ML IV ONE (12:00)
--- NOTE | 2016-04-21 12:31 | IPN ---
DATE: 04/21/2016 SUBJECTIVE: Ms. Magaña is a 66-year-old female who was seen and examined at the bedside. The patient denies overnight issues. The patient denies chest pain; however, the patient has orthopnea and paroxysmal nocturnal dyspnea. At the time of visit, the patient was on 2 liters nasal cannula, which is her baseline. The patient expressed that her lower extremity pain has decreased compared to yesterday. OBJECTIVE: VITAL SIGNS: Temperature 96.8, pulse 72, respiratory rate 20, blood pressure 126/61, pulse oximetry 96% on 3 liters nasal cannula. GENERAL APPEARANCE: The patient was sitting in a chair. No acute distress. The patient was awake, alert and oriented to time, place and person. HEENT: Normocephalic, atraumatic. HEART: Irregular. Normal S1, S2. LUNGS: Clear breath sounds. Good air movement. ABDOMEN: Soft, nontender. Positive bowel sounds in all quadrants. EXTREMITIES: The patient has lower extremity edema, +2 pulses in both lower extremities. The patient has tenderness to palpation of the lower extremities, especially on prone side of the foot bilaterally. The patient still has lower extremity erythema bilaterally; however, it has decreased compared to yesterday. LABORATORY DATA: White blood cells 11.3, red blood cells 3.02, hemoglobin 8.9, hematocrit 29.7, MCV 98.6, MCH 29.6, MCHC 30, RDW 23, platelet count 267, neutrophil percentage 83.5, lymphocyte percentage 7.2, monocyte percentage 5.9, eosinophil percentage 1.4, basophil percentage 0.3, leukocyte percentage 1.5. Sodium 140, potassium 4.1, chloride 101, carbon dioxide 30, anion gap 9, BUN 39, creatinine 1.24, GFR 46.1, fasting glucose 129, calcium 8.6, phosphorous 3.4, magnesium 2.4, total bilirubin 0.8, AST 23, ALT 17, alkaline phosphatase 80, total protein 7.5, albumin 3.2. ASSESSMENT AND PLAN: 1. Vaginal candidiasis. This has improved. The patient denies any pruritus. Yesterday, the patient received one dose of Diflucan 150 mg by mouth. At this time, the patient is stable. 2. Dyspnea. At this time, the patient is on 2 liters nasal cannula, which is her baseline. Her dyspnea is multifactorial, including congestive heart failure (CHF), as well as obesity and history of community acquired pneumonia. The patient is on diuretics. At this time, the patient is stable. 3. Cellulitis. The patient has lower extremity edema, as well as erythema. At this time, the patient is on cefepime. Due to possibility of deep vein thrombosis (DVT), I have ordered lower extremity ultrasound bilaterally yesterday and the results were negative. We will continue the patient on current antibiotic dosage. 4. Anasarca. This is probably secondary to diastolic congestive heart failure. The patient is on diuretics (torsemide and spironolactone). The patient's liver function is normal today. We will continue to monitor the patient for any abnormal symptoms. 5. Acute on chronic diastolic congestive heart failure (CHF). The patient is on torsemide, as well as spironolactone. We are monitoring the patient's input and output. Yesterday, the patient had negative fluid balance. Diuretics are managed by human services worker. 6. Acute on chronic respiratory failure with hypoxia. This is multifactorial secondary to exacerbation of the congestive heart failure, as well as history of community acquired pneumonia. At this time, the patient is on her baseline (3 liters nasal cannula). 7. Community acquired pneumonia. The patient has finished a course of antibiotic (ceftriaxone). 8. Constipation. The patient is on bowel regimen. 9. Obstructive sleep apnea. This is a chronic issue. 10. Morbid obesity. 11. Diabetes. The patient is on sliding scale, as well as consistent carbohydrate diet. 12. Hypertension. The patient is on spironolactone, torsemide, as well as Lopressor. 13. Chronic obstructive pulmonary disease (COPD). The patient is on breathing treatments, also, the patient is on 3 liters nasal cannula, which is her baseline. 14. Coronary artery disease. The patient is on aspirin, statin, and beta alfreda. The patient is also on Pradaxa. 15. Hyperlipidemia. The patient is on a statin. 16. Mitral stenosis. This is a chronic issue. 17. Pulmonary hypertension. The patient is on torsemide and spironolactone. 18. Atrial fibrillation. The patient's rate is controlled. The patient is on Pradaxa, aspirin, as well as beta alfreda (Lopressor 12.5 mg twice a day by mouth). 19. Chronic anemia. At this time, the patient is on ferrous sulfate 325 mg twice a day by mouth. Hemoglobin and hematocrit are stable at this time. 20. Allergies. The patient is on loratadine; however, the patient does not have any signs of symptoms of allergies. 21. Hematuria. The patient is stable at this time. No hematuria reported. At this time, we will continue monitoring hemoglobin and hematocrit. 22. Deep vein thrombosis (DVT) prophylaxis. We will continue the patient on Pradaxa. My preceptor for this patient encounter was Dr. Huggins. The preceptor was physically present in the building during the encounter and was fully available. As needed, all aspects of the patient interview, examination, medical decision making process, and medical care plan development were reviewed and approved by the preceptor. The preceptor is aware and concurs with the plan as stated in the body of this note and will attest to such by his/her cosignature. I, Matthew Huggins, have both independently examined this patient as well as reviewed the documentation. I have discussed in detail with the resident the findings and plan of treatment as documented in the residents documentation. I will continue to follow the patient and offer further guidance to the patients care as necessary during this hospital stay. ADELE
[2016-04-21 14:00] VITALS: BP 131/57
[2016-04-21] MEDS: **NOTE PATIENT COMMENT** MISC XX SCH (20:25)
[2016-04-21 20:37] VITALS: BP 114/68
[2016-04-22] MEDS: SLF 3 ML SYR IV SCH ×3 (05:39→20:32)
[2016-04-22 05:45] VITALS: BP 130/69
[2016-04-22 05:57] LABS: BASO % 0.4 % (0.0-1.0); EOS # 0.2 K/mm3 (0.0-0.50); EOS % 1.7 % (0.0-3.0); LARGE UNSTAINED CELL # 0.2 K/mm3 (0.0-0.4); LARGE UNSTAINED CELL % 2.1 % (0.0-4.0); LYMPH # 0.8 K/mm3 (1.5-4.5); LYMPH % 7.8 % (24.0-44.0); MEAN CORPUSCULAR HEMOGLOBIN 29.7 pg (27.0-33.0); MEAN CORPUSCULAR HGB CONC 29.3 g/dl (32.0-36.5); MEAN CORPUSCULAR VOLUME 101.3 fl (80.0-96.0); MONO # 0.7 K/mm3 (0.0-0.8); MONO % 6.4 % (0.0-5.0); NEUTROPHILS # 8.4 K/mm3 (1.8-7.7); NEUTROPHILS % 81.7 % (36.0-66.0); PLATELET COUNT, AUTOMATED 264 k/mm3 (150-450); WHITE BLOOD COUNT 10.3 K/mm3 (4.0-10.0)
[2016-04-22 06:23] LABS: ALBUMIN 2.9 GM/DL (3.2-5.2); ALBUMIN/GLOBULIN RATIO 0.6 (1.00-1.93); BILIRUBIN,TOTAL 0.7 MG/DL (0.2-1.0); CALCIUM LEVEL 8.9 MG/DL (8.8-10.2); CREATININE FOR GFR 1.19 MG/DL (0.55-1.02); GLOMERULAR FILTRATION RATE 48.3 (>45); MAGNESIUM LEVEL 2.3 MG/DL (1.8-2.4); POTASSIUM SERUM 3.9 MEQ/L (3.5-5.1); TOTAL PROTEIN 7.7 GM/DL (6.4-8.2)
--- NOTE | 2016-04-22 07:53 | IPN ---
DATE: 04/20/2016 Ms. Magaña is seen this morning on her bedside. She is sitting in the chair. She reports feeling slightly better today. She is able to walk to the bathroom with the help of walker. She has been partially incontinent of urine. She denies any nausea or vomiting. She still has some hematuria. There is no fever or chills. Her dyspnea persists and leg edema is essentially unchanged over last 24-48 hours. PHYSICAL EXAMINATION Temperature 97 degrees Fahrenheit, heart rate 100 per minute and respiratory rate 20 per minute. Blood pressure 107/55 mmHg and oxygen saturation is low 90s on 4 liters oxygen. Head is atraumatic. Pupils are equal and reactive to light. Sclera is anicteric. She has no oral thrush or ulcers. Ears, nose and throat are unremarkable. Neck veins are not distended sitting upright. She has no thyroid enlargement and trachea is midline. Heart sounds are irregular in rhythm. Lungs have moderate bilateral air entry without any wheezing. Abdomen is obese and nontender. Abdominal wall edema is present. Extremities have no cyanosis or clubbing. She has bilateral lower extremity edema and erythema. Neurologically she is awake, alert and oriented times three. She has no focal deficit. Today's labs show WBC count 12.5, hemoglobin 9.0, hematocrit 30.2. Sodium 138 and potassium 3.8. CO2 is up to 35, BUN 38 and creatinine 1.23. Glucose 130 and calcium 8.5. PROBLEMS: 1. Acute on chronic congestive heart failure. Volume status is only moderately decompensated. She has lost significant weight over the last 10 days. Her diuretic dose has been cut down due to development of metabolic alkalosis. She is now on torsemide 100 mg b.i.d. and spironolactone 25 mg b.i.d. Today is the first full day of oral diuretics. We will monitor her output and make adjustments as needed. 2. Acute renal failure superimposed on chronic kidney disease. No mash filter cloth changer last 24 hours. This is probably her baseline kidney function. Her electrolytes are reasonable. 3. Metabolic alkalosis. She has mild metabolic alkalosis related to her COPD and diuresis. She was given acetazolamide for a few days, which has been now stopped. 4. Anemia. Her anemia has improved slightly with transfusion of 2 units of packed RBCs. She remains on Aranesp and iron supplement. 5. Morbid obesity and bilateral lower extremity edema. She has multiple risk factors for edema including morbid obesity, cirrhosis of liver, right-sided heart failure and chronic kidney disease. I feel that she would benefit from either wrapping her legs or elevating them. She also needs to get up and do physical therapy. We will continue diuresis while monitoring her kidney function and electrolytes. I do not feel that she should be diuresed to aggressively due to risk of electrolyte and metabolic abnormalities.
[2016-04-22] MEDS: IPRATROPIUM 0.5MG/ALBUTEROL 2.5MG INH SOL UD 3ML (DUONEB)(J7620) NEB SCH ×4 (08:00→19:38)
[2016-04-22] MEDS: CEFEPIME HCL 1 GM in D5W MINI-BAG PLUS 50 ML IV SCH ×2 (09:28→20:26)
[2016-04-22] MEDS: BREO ELLIPTA INH SCH (09:28)
[2016-04-22] MEDS: TIOTROPIUM INHALER/CAPSULE (SPIRIVA) INH SCH (09:28)
[2016-04-22] MEDS: ASCORBIC ACID 500 MG TAB PO SCH ×2 (09:29→16:55)
[2016-04-22] MEDS: MULTIVITAMINS/MINERALS THERAP 1 TAB PO SCH (09:29)
[2016-04-22] MEDS: ASPIRIN 81 MG ENTERIC TAB PO SCH (09:29)
[2016-04-22] MEDS: ATORVASTATIN 20 MG TAB PO SCH (09:29)
[2016-04-22] MEDS: DABIGATRAN ETEXILATE 75 MG CAP (PRADAXA) PO SCH ×2 (09:29→20:25)
[2016-04-22] MEDS: LIDOCAINE 5% (LIDODERM) PATCH TD SCH (09:29)
[2016-04-22] MEDS: POTASSIUM CHLORIDE 10 MEQ SR TABLET PO SCH ×3 (09:30→20:26)
[2016-04-22] MEDS: TORSEMIDE 100 MG TAB PO SCH ×2 (09:30→16:54)
[2016-04-22] MEDS: FERROUS SULFATE 325MG TAB PO SCH (09:30)
[2016-04-22] MEDS: PANTOPRAZOLE 40MG TAB (PROTONIX) PO SCH (09:30)
[2016-04-22] MEDS: HumaLOG INSULIN (NovoLOG) PER UNIT SC SCH ×4 (09:31→21:00)
[2016-04-22] MEDS: SPIRONOLACTONE 25 MG TAB PO SCH ×2 (09:31→16:55)
[2016-04-22] MEDS: METOPROLOL TART 12.5 MG PER 1/2 TAB PO SCH ×2 (09:31→20:31)
[2016-04-22] MEDS: NYSTATIN 100,000 UNITS/GM TOPICAL PWD 15 GM TOP SCH ×2 (09:32→20:33)
[2016-04-22] MEDS: MIRALAX *UNIT DOSE* 17GM PACKET PO PRN (09:36)
[2016-04-22] MEDS: DOCUSATE SODIUM 100 MG CAP PO PRN ×2 (09:36→20:26)
[2016-04-22] MEDS: LORATADINE 10 MG TAB PO PRN (09:39)
[2016-04-22] MEDS ORDERED: IRON SUCROSE 100 MG/5 ML INJ (J1756) IV ONE (12:15)
[2016-04-22] MEDS: PERCOCET 5MG/325MG TAB PO PRN ×2 (13:24→21:50)
[2016-04-22 14:00] VITALS: BP 121/70
[2016-04-22] MEDS ORDERED: IRON SUCROSE 25 MG in NS 50 ML IV ONE (14:00)
[2016-04-22] MEDS ORDERED: IRON SUCROSE 475 MG in NS 250 ML IV ONE (15:00)
[2016-04-22] MEDS: CEPACOL LOZENGE PO PRN (19:41)
[2016-04-22 20:00] VITALS: BP 131/63
[2016-04-22] MEDS: **NOTE PATIENT COMMENT** MISC XX SCH (20:32)
[2016-04-22 20:55] VITALS: BP 129/69
[2016-04-23] MEDS: PERCOCET 5MG/325MG TAB PO PRN ×2 (02:55→16:30)
[2016-04-23] MEDS: SLF 3 ML SYR IV SCH ×3 (05:08→22:00)
[2016-04-23 05:55] VITALS: BP 111/59
[2016-04-23 06:09] LABS: BASO % 0.5 % (0.0-1.0); EOS # 0.2 K/mm3 (0.0-0.50); EOS % 1.5 % (0.0-3.0); LARGE UNSTAINED CELL # 0.2 K/mm3 (0.0-0.4); LARGE UNSTAINED CELL % 1.8 % (0.0-4.0); LYMPH # 0.9 K/mm3 (1.5-4.5); LYMPH % 7.8 % (24.0-44.0); MEAN CORPUSCULAR HEMOGLOBIN 29.5 pg (27.0-33.0); MEAN CORPUSCULAR HGB CONC 28.8 g/dl (32.0-36.5); MEAN CORPUSCULAR VOLUME 102.7 fl (80.0-96.0); MONO # 0.7 K/mm3 (0.0-0.8); NEUTROPHILS # 9.1 K/mm3 (1.8-7.7); NEUTROPHILS % 82.4 % (36.0-66.0); PLATELET COUNT, AUTOMATED 257 k/mm3 (150-450); RED CELL DISTRIBUTION WIDTH 22.8 % (11.5-14.5)
[2016-04-23 06:15] LABS: ADD MORPHOLOGY? YES
[2016-04-23 06:21] LABS: ALBUMIN 2.8 GM/DL (3.2-5.2); ALBUMIN/GLOBULIN RATIO 0.64 (1.00-1.93); BILIRUBIN,TOTAL 0.8 MG/DL (0.2-1.0); CALCIUM LEVEL 8.6 MG/DL (8.8-10.2); CREATININE FOR GFR 1.17 MG/DL (0.55-1.02); GLOMERULAR FILTRATION RATE 49.3 (>45); MAGNESIUM LEVEL 2.3 MG/DL (1.8-2.4); POTASSIUM SERUM 4.1 MEQ/L (3.5-5.1); TOTAL PROTEIN 7.2 GM/DL (6.4-8.2)
[2016-04-23 07:07] LABS: HYPOCHROMASIA 3+; POLYCHROMASIA 2+
[2016-04-23] MEDS: TIOTROPIUM INHALER/CAPSULE (SPIRIVA) INH SCH (07:09)
[2016-04-23] MEDS: BREO ELLIPTA INH SCH (07:09)
[2016-04-23] MEDS: MIRALAX *UNIT DOSE* 17GM PACKET PO PRN (07:55)
[2016-04-23] MEDS: LIDOCAINE 5% (LIDODERM) PATCH TD SCH (07:56)
[2016-04-23] MEDS: HumaLOG INSULIN (NovoLOG) PER UNIT SC SCH ×4 (07:56→20:48)
[2016-04-23] MEDS: CEFEPIME HCL 1 GM in D5W MINI-BAG PLUS 50 ML IV SCH ×2 (07:56→21:00)
[2016-04-23] MEDS: TORSEMIDE 100 MG TAB PO SCH ×2 (07:57→16:32)
[2016-04-23] MEDS: PANTOPRAZOLE 40MG TAB (PROTONIX) PO SCH (07:57)
[2016-04-23] MEDS: ATORVASTATIN 20 MG TAB PO SCH (07:57)
[2016-04-23] MEDS: ASPIRIN 81 MG ENTERIC TAB PO SCH (07:57)
[2016-04-23] MEDS: POTASSIUM CHLORIDE 10 MEQ SR TABLET PO SCH ×3 (07:57→21:32)
[2016-04-23] MEDS: ASCORBIC ACID 500 MG TAB PO SCH ×2 (07:57→17:22)
[2016-04-23] MEDS: MULTIVITAMINS/MINERALS THERAP 1 TAB PO SCH (07:57)
[2016-04-23] MEDS: DABIGATRAN ETEXILATE 75 MG CAP (PRADAXA) PO SCH ×2 (07:57→21:32)
[2016-04-23] MEDS: SPIRONOLACTONE 25 MG TAB PO SCH ×2 (07:58→16:29)
[2016-04-23] MEDS: DOCUSATE SODIUM 100 MG CAP PO PRN (07:58)
[2016-04-23] MEDS: METOPROLOL TART 12.5 MG PER 1/2 TAB PO SCH ×2 (07:58→21:31)
[2016-04-23] MEDS: FERROUS SULFATE 325MG TAB PO SCH (07:58)
[2016-04-23] MEDS: LORATADINE 10 MG TAB PO PRN (07:58)
[2016-04-23] MEDS: NYSTATIN 100,000 UNITS/GM TOPICAL PWD 15 GM TOP SCH ×2 (07:59→21:00)
[2016-04-23] MEDS: IPRATROPIUM 0.5MG/ALBUTEROL 2.5MG INH SOL UD 3ML (DUONEB)(J7620) NEB SCH ×4 (08:00→19:52)
--- NOTE | 2016-04-23 09:49 | IPN ---
DATE: 04/21/2016 SUBJECTIVE: Patient was seen and examined today at the bedside early in the morning. She had just come back from the restroom and she was complaining of shortness of breath. She was wearing nasal cannula at 3 liters per minute, but patient requested that her oxygen be turned higher. Bedside oxygen saturation was checked and she was saturating around 91%. The patient was reassured that her oxygen rate was adequate for her. Last 24 hours events were noted as well. The patient is making progress. She is making a good amount of urine with the oral diuretics at this time. Her renal function with the current dose of diuretics is stable. REVIEW OF SYSTEMS: The patient denies any fever or chills, rigors, headaches or chest pain. She does report shortness of breath on mild exertion. She denies any nausea, vomiting, pain in abdomen, constipation. She does report lower extremity edema as well, but edema is getting better with the diuretics as reported by patient. Rest of review of systems is negative. OBJECTIVE: VITAL SIGNS: Temperature 98.1 degrees Fahrenheit, blood pressure 131/57, pulse 100, respiratory rate 16, saturating 93% on nasal cannula at 3 liters. Intake and output: Urine output recorded as 2.4 liters yesterday and 1175 mL so far today since overnight. Weight on the bed scale is 167.2 kg. PHYSICAL EXAMINATION: GENERAL: Patient is awake, alert and oriented times three, sitting in the sofa. She is morbidly obese. Mild respiratory distress. HEAD AND NECK EXAM: Extraocular muscles intact. Pupils equally round and reactive to light. Neck is supple. There is no jugular venous distention (JVD). Mucous membranes are moist. CARDIOVASCULAR: S1, S2. Regular rate. No murmur, rub or gallop. RESPIRATORY: Chest is clear to auscultation bilaterally. There are decreased breath sounds at the bases. There are no rales or rhonchi. ABDOMEN: Obese. Soft. Positive bowel sounds. Nontender. I could not appreciate any organomegaly because of patient's body habitus. EXTREMITIES: Patient has erythema of the bilateral lower extremities because of her chronic edema. She has 2+ of pitting edema of the bilateral lower extremities up to her thighs. CENTRAL NERVOUS SYSTEM: No focal neurological deficit. Power is 5/5 in all extremities. PSYCHIATRIC: Patient is slightly agitated at this time because she is complaining of shortness of breath. LAB REVIEW: CBC showed a white blood cell (WBC) of 11.3, hemoglobin 8.9, and platelets 263. BMP showed a sodium of 140, potassium 4.1, chloride 101, bicarbonate 30, BUN 39, creatinine 1.24 and it was 1.23 yesterday, calcium 8.6, phosphorus 3.5, magnesium 2.4. IMAGING: Vascular ultrasound done yesterday showed no evidence of deep vein thrombosis (DVT). CURRENT MEDICATIONS: Patient's current medications were all reviewed by me and pertinent medications include - calcium gluconate IV 1 gram which was ordered by me today - torsemide 100 mg by mouth twice a day - spironolactone 25 mg by mouth twice a day ASSESSMENT: 66-year-old female who is morbidly obese being followed up by nephrology for acute on chronic congestive heart failure, fluid overload, and electrolyte abnormalities. PLAN: 1. Acute on chronic congestive heart failure. The patient has combined systolic and diastolic dysfunction. She has right heart failure as well. She is being gently diuresed. Her oral diuretics were adjusted two days ago. Continue current dose of torsemide 100 mg twice a day and spironolactone 25 mg twice a day as well. 2. Metabolic alkalosis. The patient's bicarbonate is 30 at this time, which is acceptable. Patient has history of chronic obstructive pulmonary disease (COPD) as well. Continue the current diuretics at this time. No need of acetazolamide. 3. Hypocalcemia. Hypocalcemia is secondary to aggressive diuresis. I already ordered calcium gluconate 1 gram IV infusion today morning. 4. Acute kidney injury superimposed on chronic kidney disease. Patient's creatinine has been stable with the current dose of diuretics. Her GFR is around 46 at this time. Continue to monitor for now. 5. Anemia and chronic kidney disease. Patient's hemoglobin is 8.9 at this time. Continue current dose of Aranesp 100 mcg subcutaneous on Sunday.
--- NOTE | 2016-04-23 11:08 | IPNPDOC ---
Text Note Date of Service The patient was seen on 04/23/16 at 11:06. NOTE Subjective: Patient is a 66 year old female with a PMHx of CHF (ECHO 05/2015 with normal- near normal EF, Grade 2 Diastolic dysfunction), COPD (on home O2 at 3 liters), DM2, DLP, HTN, atrial fibrillation (on anticoagulation), history of left pleural effusion (small to moderate) who presented to the ER with complaints of shortness of breath. She was admitted for HCAP. She has completed course of antibiotics. Her hospital course was prolonged, with CHF exacerbation requiring supplemental oxygen. She continues diuresis with an adjusted dose of diuretics. Patient has been seen and examined at the bedside. She is at her baseline amount of oxygen. She notes that her swelling persists, but she puts out a good amount of urine and her daily weight have continued to go down. She denies SOB, cough, fever/ chills, palpitations, chest pain. She denies dysuria. Objective: Vitals (See below) General: Sitting up in bed, no acute distress, AAOx3 HEENT: NC, AT CVS: Irregularly irregular, +S1S2 Lungs: Fair air entry bilaterally, No wheezing / rhonchi / rales appreciated Abdomen: Soft, ND, NT, +BSx4 Extremities: +PPx4, 2+ pitting edema, b/l erythema and tenderness (no warmth, or drainage) Assessment and plan: 1. Dyspnea likely 2/2 chronic hypoxic respiratory failure 2/2 chronic COPD, obesity, deconditioning, Diastolic CHF exacerbation - currently at her baseline level of supplemental oxygen (3 L NC) - physical still reveals 2+ pitting edema bilaterally - continues with physical therapy - keep negative fluid balance (minimum of -1 liter per day), daily weights, - continues diuresis with torsemide and spironolactone - Nephrology (Dr. Melton) following appreciate their input 2. Leukocytosis possibly 2/2 urinary tract infection, less likely 2/2 cellulitis - Both legs appear to have erythema - which has been resolving - Duplex US negative for DVT - Leukocytosis has trended down - UA with 2+ LE, TNTC WBC and 2+ bacteria - s/p garcia catheter - c/w Cefepime (Day #5) 3. Normocytic anemia - Hg baseline of 10-11; currently Hg at 8 - Has experienced hematuria; but notes that this has resolved - s/p Iron infusion, will receive darbepoetin tomorrow 4. s/p Sepsis - possibly 2/2 pneumonia (CAP) - completed course of broad spectrum antibiotics 5. Chronic COPD - no evidence of COPD exacerbation - physical exam does not reveal any wheezing - will continue with inhaled therapy from home and duoneb PRN 6. Diastolic CHF, Compensated - ECHO 05/2014 - with normal / near-normal EF, Grade 2 diastolic dysfunction - Currently does not appear to have fluid overload on physical exam 5. NIDDM2 - c/w insulin sliding scale 6. DLP - c/w atorvastatin 7. HTN - c/w metoprolol tartrate 12.5mg BID with holding parameters 8. JANE - not on CPAP - Will go for repeat sleep study in March for CPAP 9. History of CA - c/w ASA, Atorvastatin - Metoprolol dose has been decreased (with holding parameters) - Lisinopril have been discontinued 10. Atrial fibrillation - c/w rate control with Metoprolol 12.5 mg PO BID (with holding parameters) - full anticoagulation with Pradaxa 11. GI prophylaxis - c/w protonix 12. DVT prophylaxis - c/w pradaxa VS,Fishbone, I+O VS, Fishbone, I+O Laboratory Tests 04/23/16 05:53 Calcium Level 8.6 L, Aspartate Amino Transf (AST/SGOT) 17, Alanine Aminotransferase (ALT/SGPT) 18, Alkaline Phosphatase 70, Total Bilirubin 0.8, Total Protein 7.2, Albumin 2.8 L, Red Blood Count 2.71 L, Mean Corpuscular Volume 102.7 H, Mean Corpuscular Hemoglobin 29.5, Mean Corpuscular Hemoglobin Concent 28.8 L, Red Cell Distribution Width 22.8 H, Neutrophils (%) (Auto) 82.4 H, Lymphocytes (%) (Auto) 7.8 L, Monocytes (%) (Auto) 6.0 H, Eosinophils (%) ( Auto) 1.5, Basophils (%) (Auto) 0.5, Neutrophils # (Auto) 9.1 H, Lymphocytes # ( Auto) 0.9 L, Monocytes # (Auto) 0.7, Eosinophils # (Auto) 0.2, Basophils # (Auto ) 0.0 Vital Signs Date Time Temp Pulse Resp B/P Pulse Ox O2 Delivery O2 Flow Rate FiO2 04/23/16 07:58 97 111/59 04/23/16 05:55 97.6 18 94 Room Air 04/22/16 20:55 3.0 I&O- Last 24 Hours up to 6 AM 04/23/16 06:00 Intake Total 1170 ml Output Total 4150 ml Balance -2980 ml MALACHI SOTO MD Apr 23, 2016 11:08
--- NOTE | 2016-04-23 11:11 | IPN ---
DATE: 04/22/2016 SUBJECTIVE: Ms. Magaña is a 66-year-old female who was seen and examined at the bedside. Patient denies chest pain, however patient has orthopnea and paroxysmal nocturnal dyspnea (PND). At the time of visit, patient was on 2 liters nasal cannula. Patient expressed that she has discomfort with ambulation, mostly on her feet, and patient continues to have erythema bilaterally in her lower extremities. OBJECTIVE: VITAL SIGNS: Temperature 96.5, pulse 91, respiratory rate 18, blood pressure 130/69, pulse oximetry 93% on 3 liters of nasal cannula. GENERAL APPEARANCE: Patient was sitting in the chair in no acute distress. Patient was awake, alert, and oriented to time, place, and person. HEENT: Normocephalic, atraumatic. HEART: Irregular, normal S1, S2. LUNGS: Clear breath sounds bilaterally. Good air movement. ABDOMEN: Soft, nontender, obese. Positive bowel sounds in all quadrants. EXTREMITIES: Patient has lower extremity edema and +2 pulses in both lower extremities. Patient has tenderness to palpation in both lower extremities, mostly on the prone surface of the feet bilaterally as well as anterior leg bilaterally. The erythema has increased on the left lower extremity compared to right lower extremity. LABORATORY DATA: WBC 10.3, RBC 2.83, hemoglobin 8.4, hematocrit 28.7, MCV 101.3, MCH 29.7, MCHC 29.3, RDW 23, platelet count 263, neutrophil percentage 81.7, lymphocyte percentage 7.8, monocyte percentage 6.4, eosinophil percentage 1.7, basophil percentage 0.4, leukocyte percentage 2.1. Sodium 138, potassium 3.9, chloride 99, carbon dioxide 31, anion gap 8, BUN 40, creatinine 1.19, glomerular filtration rate 48.3, fasting glucose 142, calcium 8.9, magnesium 2.3, total bilirubin 0.7, AST 19, ALT 18, alkaline phosphatase 76 , total protein 7.7, albumin 2.9. ASSESSMENT AND PLAN: 1. Dyspnea. At this time patient is at her baseline at 3 liters nasal cannula. This is possibly multifactorial, which includes congestive heart failure, obesity, as well as community-acquired pneumonia. At this time patient is on diuretics (torsemide 100 mg by mouth twice a day as well as spironolactone 25 mg by mouth twice a day). Patient at this time is stable. 2. Cellulitis. At this time patient is on cefepime. I have ordered ultrasound of her lower extremity bilaterally due to possibility of deep venous thrombosis (DVT) which was negative. Will continue with the current dosage of cefepime. 3. Vaginal candidiasis. It has resolved. At this time patient is stable. No pruritus. 4. Anasarca. This is possibly secondary to diastolic congestive heart failure. Will continue patient on torsemide as well as spironolactone. Patient's liver function is normal today. 5. Acute on chronic diastolic congestive heart failure. Patient is on torsemide on spironolactone. Also, she is on Lopressor 12.5 mg by mouth twice a day. Will continue monitoring intake and output. Yesterday, patient's fluid balance was negative 1815 mL. Will continue monitoring patient for any abnormal symptoms. 6. Acute on chronic respiratory failure with hypoxia. This is multifactorial including diastolic congestive heart failure as well as history of community-acquired pneumonia and obesity as well as history of anemia. At this time patient is at her baseline (3 liters nasal cannula). 7. Community-acquired pneumonia. This is a chronic issue and it has resolved. Patient finished a course of ceftriaxone. 8. Constipation. Patient is on bowel regimen. 9. Obstructive sleep apnea. This is a chronic issue. 10. Morbid obesity. 11. Diabetes. Will continue patient on sliding scale as well as consistent carbohydrate diet. 12. Hypertension. Patient is on spironolactone, torsemide, as well as Lopressor. 13. Chronic obstructive pulmonary disease (COPD). Patient is at her baseline ( 3 liters nasal cannula). Also we will continue patient on breathing treatment. 14. Coronary artery disease. Patient is on aspirin, statin, beta alfreda, and Pradaxa. 15. Hyperlipidemia. Patient is on a statin. 16. Mitral valve stenosis. This is a chronic issue. 17. Pulmonary hypertension. Patient is on torsemide and spironolactone. 18. Atrial fibrillation. Rate is controlled. Will continue patient on Pradaxa , aspirin, and beta alfreda (Lopressor 12.5 mg twice a day). 19. Chronic anemia. Patient is on ferrous sulfate 325 mg, also she is on Aranesp 100 mcg subcutaneously on Mondays, however we have increased the dosage to 200 mcg subcutaneously on Mondays. Will continue monitoring hemoglobin and hematocrit. 20. Allergies. Patient is on loratadine, however patient does not have any signs or symptoms of allergies at this moment. 21. Hematuria. Hemoglobin and hematocrit are stable at this time. Patient does not have any hematuria. 22. Deep venous thrombosis (DVT) prophylaxis. Patient is on Pradaxa. My preceptor for this patient encounter was Dr. Matthew Huggins. The preceptor was physically present in the building during the encounter and was fully available. As needed, all aspects of the patient interview, examination, medical decision making process, and medical care plan development were reviewed and approved by the preceptor. The preceptor is aware and concurs with the plan as stated in the body of this note and will attest to such by his cosignature. I, Matthew Huggins, have both independently examined this patient as well as reviewed the documentation. I have discussed in detail with the resident the findings and plan of treatment as documented in the residents documentation. I will continue to follow the patient and offer further guidance to the patients care as necessary during this hospital stay. ADELE
[2016-04-23] MEDS: DARBEPOETIN 300 MCG/0.6 ML *NON-DIALYSIS* SYRINGE (J0881) SC SCH (12:11)
[2016-04-23 14:00] VITALS: BP 166/77
--- NOTE | 2016-04-23 14:24 | IPN ---
DATE: 04/22/2016 SUBJECTIVE: The patient was seen and examined at the bedside today in the morning. The patient was feeling much better. Her shortness of breath is also better today. She reports that her leg edema is getting better. She is having good urine output with the diuretic regimen that she is on. REVIEW OF SYSTEMS: The patient denies any fever, chills, rigors, headache, or chest pain. She does report some shortness of breath with mild exertion. She denies any constipation, diarrhea, pain in abdomen. She does report leg edema, but it is getting better at this time. The rest of the review of systems is negative. OBJECTIVE: VITAL SIGNS: Temperature is 97.7 degrees Fahrenheit. Blood pressure is 121/70. Pulse is 95. Respiratory rate of 18. Saturating 91% on nasal cannula at 3 liters per minute. INTAKE/OUTPUT: Urine output is 3.1 liters yesterday and 1650 mL so far today since overnight. She is in negative fluid balance every day, negative 2 liters from yesterday. PHYSICAL EXAMINATION: GENERAL: Patient is awake, alert and oriented times three sitting on the sofa in no apparent distress, wearing nasal cannula. HEAD AND NECK EXAM: Extraocular muscles intact. Pupils equally round and reactive to light. Neck is supple. Mucous membranes are moist. There is no jugular venous distention (JVD). CARDIOVASCULAR: S1, S2. Regular rate. No murmur, rub or gallop. RESPIRATORY: Chest is clear to auscultation bilaterally. No rales or rhonchi. There are decreased breath sounds at the bases. The patient is morbidly obese. ABDOMEN: Abdomen is soft. Obese. Protuberant. I could not appreciate any organomegaly because of body habitus, but I did see some abdominal wall edema. EXTREMITIES: The patient has bilateral erythematous changes in the lower extremities. She has 2+ pitting edema of the bilateral lower extremities up to the knees. CENTRAL NERVOUS SYSTEM: No focal neurological deficit. Power is 5/5 in all extremities. SKIN: Positive redness and chronic venous stasis changes in both legs. PSYCHIATRIC: Normal mood and affect. LABORATORY REVIEW: CBC showed a WBC of 10.3, hemoglobin 8.4, platelets of 264. BMP showed sodium 138, potassium 3.9, chloride 99, bicarbonate 31, BUN 40, creatinine 1.19 and it was 1.24 yesterday. Calcium is 8.9. Magnesium is 2.3. CURRENT MEDICATIONS: Patient's current medications were all reviewed by me. She continues to be on Cefepime 1 gram IV every 12 hours. She was started on IV Venofer 500 mg times one dose because of iron deficiency anemia. Her dose of Aranesp was increased to 200 mcg subcutaneous on Sunday. Her iron tablet was decreased to 325 mg by mouth daily. The rest of the medications are the same as compared with yesterday. ASSESSMENT: 66-year-old female with past medical history of morbid obesity, chronic systolic and diastolic congestive heart failure, nephrology service following the patient for acute renal failure superimposed on chronic kidney disease and volume overload. PLAN: 1. Acute kidney injury superimposed on chronic kidney disease. The patient's renal function is improving with diuresis. It is most likely cardiorenal syndrome because of severe right heart failure and fluid overload. Continue diuretics at this time. 2. Acute on chronic congestive heart failure. The patient has a negative fluid balance every day with the oral diuretics that she is on. Continue current dose of torsemide 100 mg by mouth twice a day and Spironolactone 25 mg by mouth twice a day. 3. Anemia secondary to iron deficiency and chronic kidney disease. I have ordered IV Venofer 500 mg IV times one dose and Aranesp dose has been increased to 200 mcg every Sunday. 4. Metabolic alkalosis. The patient's bicarbonate continues to be around 30-31. She has obesity hypoventilation and chronic obstructive pulmonary disease as well and because of that she is chronically alkalotic as well. Continue the diuretics at this time. 5. Lower extremity edema and cellulitis. I see the patient is being given IV antibiotics at this time. Continue the antibiotics as per primary team. Continue the diuretics. The patient will also benefit from compression dressings of the bilateral lower extremities. Plan of care was discussed with the medical team, Dr. Alexandre Huggins and with the medical safety director as well.
[2016-04-23] MEDS: CEPACOL LOZENGE PO PRN (16:29)
[2016-04-23] MEDS: **NOTE PATIENT COMMENT** MISC XX SCH (21:00)
[2016-04-23 22:00] VITALS: BP 124/56
[2016-04-24] MEDS: PERCOCET 5MG/325MG TAB PO PRN ×4 (00:37→22:14)
[2016-04-24] MEDS: SLF 3 ML SYR IV SCH ×3 (05:09→22:15)
[2016-04-24 06:00] VITALS: BP 104/60
[2016-04-24 06:40] LABS: BASO # 0.6 K/mm3 (0.0-0.2); EOS # 0.3 K/mm3 (0.0-0.50); EOS % 1.9 % (0.0-3.0); LARGE UNSTAINED CELL # 0.3 K/mm3 (0.0-0.4); LARGE UNSTAINED CELL % 1.8 % (0.0-4.0); LYMPH # 1.2 K/mm3 (1.5-4.5); LYMPH % 6.9 % (24.0-44.0); MEAN CORPUSCULAR HEMOGLOBIN 29.4 pg (27.0-33.0); MEAN CORPUSCULAR HGB CONC 28.5 g/dl (32.0-36.5); MEAN CORPUSCULAR VOLUME 103.3 fl (80.0-96.0); MONO # 0.8 K/mm3 (0.0-0.8); MONO % 5.4 % (0.0-5.0); PLATELET COUNT, AUTOMATED 248 k/mm3 (150-450); WHITE BLOOD COUNT 14.2 K/mm3 (4.0-10.0)
[2016-04-24 07:04] LABS: ALBUMIN 2.7 GM/DL (3.2-5.2); ALBUMIN/GLOBULIN RATIO 0.63 (1.00-1.93); BILIRUBIN,TOTAL 0.8 MG/DL (0.2-1.0); CALCIUM LEVEL 8.3 MG/DL (8.8-10.2); CREATININE FOR GFR 1.17 MG/DL (0.55-1.02); GLOMERULAR FILTRATION RATE 49.3 (>45); MAGNESIUM LEVEL 2.1 MG/DL (1.8-2.4); POTASSIUM SERUM 4.1 MEQ/L (3.5-5.1)
[2016-04-24] MEDS: BREO ELLIPTA INH SCH (07:35)
[2016-04-24] MEDS: TIOTROPIUM INHALER/CAPSULE (SPIRIVA) INH SCH (07:35)
[2016-04-24] MEDS: IPRATROPIUM 0.5MG/ALBUTEROL 2.5MG INH SOL UD 3ML (DUONEB)(J7620) NEB SCH ×4 (07:35→19:32)
[2016-04-24] MEDS: DABIGATRAN ETEXILATE 75 MG CAP (PRADAXA) PO SCH ×2 (08:33→22:13)
[2016-04-24] MEDS: CEFEPIME HCL 1 GM in D5W MINI-BAG PLUS 50 ML IV SCH ×2 (08:33→22:15)
[2016-04-24] MEDS: FERROUS SULFATE 325MG TAB PO SCH (08:33)
[2016-04-24] MEDS: PANTOPRAZOLE 40MG TAB (PROTONIX) PO SCH (08:34)
[2016-04-24] MEDS: ASCORBIC ACID 500 MG TAB PO SCH ×2 (08:34→17:36)
[2016-04-24] MEDS: ASPIRIN 81 MG ENTERIC TAB PO SCH (08:34)
[2016-04-24] MEDS: ATORVASTATIN 20 MG TAB PO SCH (08:34)
[2016-04-24] MEDS: MULTIVITAMINS/MINERALS THERAP 1 TAB PO SCH (08:34)
[2016-04-24] MEDS: METOPROLOL TART 12.5 MG PER 1/2 TAB PO SCH ×2 (08:34→21:00)
[2016-04-24] MEDS: POTASSIUM CHLORIDE 10 MEQ SR TABLET PO SCH ×3 (08:35→22:13)
[2016-04-24] MEDS: SPIRONOLACTONE 25 MG TAB PO SCH ×2 (08:35→16:10)
[2016-04-24] MEDS: TORSEMIDE 100 MG TAB PO SCH ×2 (08:35→16:10)
[2016-04-24] MEDS: LIDOCAINE 5% (LIDODERM) PATCH TD SCH (08:36)
[2016-04-24] MEDS: NYSTATIN 100,000 UNITS/GM TOPICAL PWD 15 GM TOP SCH ×2 (08:36→21:00)
[2016-04-24] MEDS: HumaLOG INSULIN (NovoLOG) PER UNIT SC SCH ×4 (08:37→21:00)
[2016-04-24] MEDS ORDERED: DARBEPOETIN 100 MCG/0.5 ML *NON-DIALYSIS* SYRINGE (J0881) SC SCH (09:00)
[2016-04-24] MEDS: MIRALAX *UNIT DOSE* 17GM PACKET PO PRN (09:53)
[2016-04-24] MEDS: DOCUSATE SODIUM 100 MG CAP PO PRN ×2 (11:13→22:15)
[2016-04-24] MEDS: CEPACOL LOZENGE PO PRN ×2 (11:13→14:35)
--- NOTE | 2016-04-24 13:58 | IPNPDOC ---
Text Note Date of Service The patient was seen on 04/24/16 at 13:54. NOTE Subjective: Patient is a 66 year old female with a PMHx of CHF (ECHO 05/2015 with normal- near normal EF, Grade 2 Diastolic dysfunction), COPD (on home O2 at 3 liters), DM2, DLP, HTN, atrial fibrillation (on anticoagulation), history of left pleural effusion (small to moderate) who presented to the ER with complaints of shortness of breath. She was admitted for HCAP. She has completed course of antibiotics. Her hospital course was prolonged, with CHF exacerbation requiring supplemental oxygen. She continues diuresis with an adjusted dose of diuretics. Patient has been seen and examined at the bedside. Patient is currently at her baseline amount of suppplemental oxygen. She denies hematuria for 2 days. Denies fever or chills. Reports progress with physical therapy. Objective: Vitals (See below) General: Sitting up in bed, no acute distress, AAOx3 HEENT: NC, AT CVS: Irregularly irregular, +S1S2 Lungs: Fair air entry bilaterally, No wheezing / rhonchi / rales appreciated Abdomen: Soft, ND, NT, +BSx4 Extremities: +PPx4,1+ pitting edema, b/l erythema and tenderness (no warmth, or drainage) Assessment and plan: 1. Dyspnea likely 2/2 chronic hypoxic respiratory failure 2/2 chronic COPD, obesity, deconditioning, Diastolic CHF exacerbation - currently at her baseline level of supplemental oxygen (3 L NC) - physical still reveals 2+ pitting edema bilaterally - continues with physical therapy; still has not been cleared - keep negative fluid balance (minimum of -1 liter per day), daily weights, - continues diuresis with torsemide and spironolactone - Nephrology (Dr. Melton) following appreciate their input 2. Leukocytosis possibly 2/2 urinary tract infection, less likely 2/2 cellulitis - Both legs appear to have erythema - which has been resolving - Reports dysuria and hematuria has resolved - Duplex US negative for DVT - Leukocytosis has trended down - UA with 2+ LE, TNTC WBC and 2+ bacteria - s/p garcia catheter - c/w Cefepime (Day #6) 3. Normocytic anemia - Hg baseline of 10-11; currently Hg at 7.5 - Has experienced hematuria; but notes that this has resolved - s/p Iron infusion and Darbepoetin 200 yesterday - Will transfuse 1 unit PRBC today - will f/u post transfusion CBC 4. s/p Sepsis - possibly 2/2 pneumonia (CAP) - completed course of broad spectrum antibiotics 5. Chronic COPD - no evidence of COPD exacerbation - physical exam does not reveal any wheezing - will continue with inhaled therapy from home and duoneb PRN 6. Diastolic CHF, Compensated - ECHO 05/2014 - with normal / near-normal EF, Grade 2 diastolic dysfunction - Currently does not appear to have fluid overload on physical exam 5. NIDDM2 - c/w insulin sliding scale 6. DLP - c/w atorvastatin 7. HTN - c/w metoprolol tartrate 12.5mg BID with holding parameters 8. JANE - not on CPAP - Will go for repeat sleep study in March for CPAP 9. History of VT - c/w ASA, Atorvastatin - Metoprolol dose has been decreased (with holding parameters) - Lisinopril have been discontinued 10. Atrial fibrillation - c/w rate control with Metoprolol 12.5 mg PO BID (with holding parameters) - full anticoagulation with Pradaxa 11. GI prophylaxis - c/w protonix 12. DVT prophylaxis - c/w pradaxa Disposition: - Awaiting clearance from PT/OT - c/w Diuresis with existing diuretic regimen; dosed by Nephrology - close follow up with Hg and Cr VS,Fishbone, I+O VS, Fishbone, I+O Laboratory Tests 04/24/16 06:09 Calcium Level 8.3 L, Aspartate Amino Transf (AST/SGOT) 25, Alanine Aminotransferase (ALT/SGPT) 19, Alkaline Phosphatase 63, Total Bilirubin 0.8, Total Protein 7.0, Albumin 2.7 L, Red Blood Count 2.54 L, Mean Corpuscular Volume 103.3 H, Mean Corpuscular Hemoglobin 29.4, Mean Corpuscular Hemoglobin Concent 28.5 L, Red Cell Distribution Width 25.0 H, Neutrophils (%) (Auto) 84.0 H, Lymphocytes (%) (Auto) 6.9 L, Monocytes (%) (Auto) 5.4 H, Eosinophils (%) ( Auto) 1.9, Basophils (%) (Auto) 4.0 H, Neutrophils # (Auto) 12.0 H, Lymphocytes # (Auto) 1.2 L, Monocytes # (Auto) 0.8, Eosinophils # (Auto) 0.3, Basophils # ( Auto) 0.6 H Vital Signs Date Time Temp Pulse Resp B/P Pulse Ox O2 Delivery O2 Flow Rate FiO2 04/24/16 10:33 90 18 94/58 92 Nasal Cannula 3.0 04/24/16 06:00 97.9 I&O- Last 24 Hours up to 6 AM 04/24/16 06:00 Intake Total 1190 ml Output Total 3550 ml Balance -2360 ml MALACHI SOTO MD Apr 24, 2016 13:58
[2016-04-24 14:00] VITALS: BP 123/60
[2016-04-24 17:00] LABS: MEAN CORPUSCULAR HEMOGLOBIN 30.3 pg (27.0-33.0); MEAN CORPUSCULAR VOLUME 104.4 fl (80.0-96.0); PLATELET COUNT, AUTOMATED 269 k/mm3 (150-450); RED CELL DISTRIBUTION WIDTH 23.6 % (11.5-14.5); WHITE BLOOD COUNT 14.2 K/mm3 (4.0-10.0)
[2016-04-24 17:20] LABS: ANISOCYTOSIS 3+; NUCLEATED RED BLOOD CELL 2 % (0-0); PLATELET CLUMPS SMALL AMT; POLYCHROMASIA 1+
[2016-04-24] MEDS: **NOTE PATIENT COMMENT** MISC XX SCH (21:00)
[2016-04-24 22:00] VITALS: BP 104/59
[2016-04-25] VITALS: BP 124/74
[2016-04-25] MEDS: CEPACOL LOZENGE PO PRN ×2 (02:18→08:07)
[2016-04-25] MEDS: SLF 3 ML SYR IV SCH ×3 (05:19→20:40)
[2016-04-25 06:00] VITALS: BP 113/64
[2016-04-25 06:35] LABS: BASO # 0.1 K/mm3 (0.0-0.2); BASO % 0.8 % (0.0-1.0); EOS # 0.2 K/mm3 (0.0-0.50); EOS % 1.6 % (0.0-3.0); LARGE UNSTAINED CELL # 0.3 K/mm3 (0.0-0.4); LARGE UNSTAINED CELL % 1.8 % (0.0-4.0); MEAN CORPUSCULAR HEMOGLOBIN 30.2 pg (27.0-33.0); MEAN CORPUSCULAR HGB CONC 28.8 g/dl (32.0-36.5); MEAN CORPUSCULAR VOLUME 104.7 fl (80.0-96.0); MONO # 0.9 K/mm3 (0.0-0.8); MONO % 6.5 % (0.0-5.0); NEUTROPHILS # 11.9 K/mm3 (1.8-7.7); NEUTROPHILS % 82.4 % (36.0-66.0); PLATELET COUNT, AUTOMATED 263 k/mm3 (150-450); RED CELL DISTRIBUTION WIDTH 24.1 % (11.5-14.5); WHITE BLOOD COUNT 14.5 K/mm3 (4.0-10.0)
[2016-04-25 06:49] LABS: ALBUMIN 2.9 GM/DL (3.2-5.2); ALBUMIN/GLOBULIN RATIO 0.67 (1.00-1.93); BILIRUBIN,TOTAL 1.1 MG/DL (0.2-1.0); CALCIUM LEVEL 8.7 MG/DL (8.8-10.2); CREATININE FOR GFR 1.29 MG/DL (0.55-1.02); MAGNESIUM LEVEL 2.3 MG/DL (1.8-2.4); POTASSIUM SERUM 4.6 MEQ/L (3.5-5.1); TOTAL PROTEIN 7.2 GM/DL (6.4-8.2)
[2016-04-25] MEDS: TIOTROPIUM INHALER/CAPSULE (SPIRIVA) INH SCH (07:25)
[2016-04-25] MEDS: BREO ELLIPTA INH SCH (07:25)
[2016-04-25] MEDS: IPRATROPIUM 0.5MG/ALBUTEROL 2.5MG INH SOL UD 3ML (DUONEB)(J7620) NEB SCH ×4 (07:30→19:37)
[2016-04-25] MEDS: DABIGATRAN ETEXILATE 75 MG CAP (PRADAXA) PO SCH ×2 (08:00→20:39)
[2016-04-25] MEDS: ATORVASTATIN 20 MG TAB PO SCH (08:01)
[2016-04-25] MEDS: ASPIRIN 81 MG ENTERIC TAB PO SCH (08:01)
[2016-04-25] MEDS: HumaLOG INSULIN (NovoLOG) PER UNIT SC SCH ×4 (08:01→21:00)
[2016-04-25] MEDS: ASCORBIC ACID 500 MG TAB PO SCH ×2 (08:01→17:27)
[2016-04-25] MEDS: SPIRONOLACTONE 25 MG TAB PO SCH ×2 (08:02→17:24)
[2016-04-25] MEDS: TORSEMIDE 100 MG TAB PO SCH (08:03)
[2016-04-25] MEDS: CEFEPIME HCL 1 GM in D5W MINI-BAG PLUS 50 ML IV SCH ×2 (08:03→20:38)
[2016-04-25] MEDS: FERROUS SULFATE 325MG TAB PO SCH (08:03)
[2016-04-25] MEDS: POTASSIUM CHLORIDE 10 MEQ SR TABLET PO SCH ×3 (08:03→20:40)
[2016-04-25] MEDS: PANTOPRAZOLE 40MG TAB (PROTONIX) PO SCH (08:03)
[2016-04-25] MEDS: MULTIVITAMINS/MINERALS THERAP 1 TAB PO SCH (08:03)
[2016-04-25] MEDS: LIDOCAINE 5% (LIDODERM) PATCH TD SCH (08:04)
[2016-04-25] MEDS: PERCOCET 5MG/325MG TAB PO PRN ×2 (08:04→17:26)
[2016-04-25] MEDS: NYSTATIN 100,000 UNITS/GM TOPICAL PWD 15 GM TOP SCH ×2 (08:04→20:40)
[2016-04-25] MEDS: METOPROLOL TART 12.5 MG PER 1/2 TAB PO SCH ×2 (08:04→20:39)
[2016-04-25] MEDS: LORATADINE 10 MG TAB PO PRN (08:07)
[2016-04-25] MEDS: DOCUSATE SODIUM 100 MG CAP PO PRN ×2 (08:07→20:39)
[2016-04-25] MEDS ORDERED: CALCIUM GLUCONATE 1,000 MG in D5W MINI-BAG PLUS 100 ML IV ONE (11:00)
--- NOTE | 2016-04-25 12:01 | IPNPDOC ---
Assessment/Plan Date Seen The patient was seen on 04/25/16. Problems Problems: (1) Anasarca Status: Acute Problem Text: due to diastolic congestive heart failure. on multiple diuretics. (2) Cellulitis Status: Acute Problem Text: on cefepime currently was on ceftriaxone before. (3) Acute on chronic diastolic CHF (congestive heart failure) Status: Acute Problem Text: continue diuresis , daily weights. on lasix, diamox and spironolactone. (4) Acute and chronic respiratory failure with hypoxia Status: Acute Problem Text: multifactorial due to CAP and diastolic chf exacerbation and fluid slowly improving with diuresis and antibiotics. (5) CAP (community acquired pneumonia) Status: Resolved Problem Text: finished course on ceftriaxone. (6) Constipation Status: Resolved Problem Text: on bowel regimen (7) JANE (obstructive sleep apnea) Status: Chronic (8) Morbid obesity Status: Chronic (9) Diabetes Status: Chronic (10) Hypertension Status: Chronic (11) COPD (chronic obstructive pulmonary disease) Status: Chronic Problem Text: continue home meds. (12) CAD (coronary artery disease) Status: Chronic (13) Hyperlipidemia Status: Chronic (14) Mitral stenosis and incompetence Status: Chronic (15) Pulmonary hypertension Status: Chronic (16) Afib Status: Chronic Problem Text: on pradaxa (17) Chronic anemia Status: Chronic Problem Text: normocytic received venofer, prbc and darbapoietin (18) Allergy Status: Chronic Problem Text: continue loratidine (19) Hematuria Status: Resolved Problem Text: possibly from trama from garcia will monitor if continues may have to hold anticoagulants temporarily. (20) Chronic respiratory failure with hypoxia Status: Chronic Problem Text: now at baseline level of oxygen by nasal canula (21) SANTINO (acute kidney injury) Status: Acute Problem Text: due to aggressive diuresis will continue to monitor. diuretic dosage decreased today Plan / VTE VTE Prophylaxis Ordered?: Yes Plan / Urinary Catheter Reason for insertion/continuin: Other-document below Subjective Review of Systems CC/HPI The patient is a 66-year-old female admitted with a reason for visit of Acute Respiratory Distress. Objective Physical Examination General Exam: Positive: Alert, No Acute Distress Eye Exam: Positive: Conjunctiva & lids normal, EOMI, PERRLA, Negative: Sclera icteric ENT Exam: Positive: Atraumatic, Mucous membr. moist/pink, Pharynx Normal Neck Exam: Positive: Supple, Negative: JVD, thyromegaly Chest Exam: Positive: Diminished Heart Exam: Positive: Normal S1, Normal S2, Rate Normal, Regular Rhythm Abdomen Exam: Positive: Normal bowel sounds, Soft, Negative: Hepatospenomegaly, Tenderness Extremity Exam: Positive: Edema, Other (redness and inflammation), Swelling, Tenderness Vital Signs/I&O Vital Signs Date Time Temp Pulse Resp B/P Pulse Ox O2 Delivery O2 Flow Rate FiO2 04/25/16 09:00 18 Nasal Cannula 3.0 04/25/16 06:00 97.9 93 113/64 93 I&O- Last 24 Hours up to 6 AM 04/25/16 06:00 Intake Total 1330 ml Output Total 4480 ml Balance -3150 ml Laboratory Data Labs 24H Laboratory Tests 2 04/24/16 16:41: Anisocytosis 3+, Atypical Lymphocytes 1, White Blood Count 14.2H, Red Blood Count 2.85L, Hemoglobin 8.6L, Hematocrit 29.7L, Mean Corpuscular Volume 104.4H, Mean Corpuscular Hemoglobin 30.3, Mean Corpuscular Hemoglobin Concent 29.0L, Red Cell Distribution Width 23.6H, Platelet Count 269, Neutrophils (%) (Auto) , Lymphocytes (%) (Auto) , Monocytes (%) (Auto) , Eosinophils (%) (Auto) , Basophils (%) (Auto) , Neutrophils # (Auto) , Lymphocytes # (Auto) , Monocytes # (Auto) , Eosinophils # (Auto) , Basophils # (Auto) , Clumped Platelets SMALL AMT, Large Unclassified Cells # , Large Unclassified Cells % , Lymphocytes ( Manual) 15L, Macrocytosis 3+, Monocytes (Manual) 10H, Neutrophils 74, Nucleated Red Blood Cells 2H, Platelet Estimate INVALID, Polychromasia 1+ 04/24/16 16:53: Bedside Glucose (Misc Panel) 142H 04/24/16 20:26: Bedside Glucose (Misc Panel) 175H 04/25/16 06:02: White Blood Count 14.5H, Red Blood Count 2.80L, Hemoglobin 8.5L, Hematocrit 29.3L, Mean Corpuscular Volume 104.7H, Mean Corpuscular Hemoglobin 30.2, Mean Corpuscular Hemoglobin Concent 28.8L, Red Cell Distribution Width 24.1H, Platelet Count 263, Neutrophils (%) (Auto) 82.4H, Lymphocytes (%) (Auto) 7.0L, Monocytes (%) (Auto) 6.5H, Eosinophils (%) (Auto) 1.6, Basophils (%) (Auto) 0.8 , Neutrophils # (Auto) 11.9H, Lymphocytes # (Auto) 1.0L, Monocytes # (Auto) 0.9H , Eosinophils # (Auto) 0.2, Basophils # (Auto) 0.1, Large Unclassified Cells # 0.3, Large Unclassified Cells % 1.8, Blood Urea Nitrogen 41H, Creatinine 1.29H, Sodium Level 140, Potassium Level 4.6, Chloride Level 100, Carbon Dioxide Level 33H, Calcium Level 8.7L, Aspartate Amino Transf (AST/SGOT) 20, Alanine Aminotransferase (ALT/SGPT) 17, Alkaline Phosphatase 70, Total Bilirubin 1.1H, Total Protein 7.2, Albumin 2.9L, Albumin/Globulin Ratio 0.67L, Anion Gap 7L, Glomerular Filtration Rate 44.0L, Magnesium Level 2.3, Whole Blood Ionized Calcium 4.4L CBC/BMP Laboratory Tests 04/24/16 16:41 Red Blood Count 2.85 L, Mean Corpuscular Volume 104.4 H, Mean Corpuscular Hemoglobin 30.3, Mean Corpuscular Hemoglobin Concent 29.0 L, Red Cell Distribution Width 23.6 H, Neutrophils (%) (Auto) , Lymphocytes (%) (Auto) , Monocytes (%) (Auto) , Eosinophils (%) (Auto) , Basophils (%) (Auto) , Neutrophils # (Auto) , Lymphocytes # (Auto) , Monocytes # (Auto) , Eosinophils # (Auto) , Basophils # (Auto) 04/25/16 06:02 Red Blood Count 2.80 L, Mean Corpuscular Volume 104.7 H, Mean Corpuscular Hemoglobin 30.2, Mean Corpuscular Hemoglobin Concent 28.8 L, Red Cell Distribution Width 24.1 H, Neutrophils (%) (Auto) 82.4 H, Lymphocytes (%) (Auto ) 7.0 L, Monocytes (%) (Auto) 6.5 H, Eosinophils (%) (Auto) 1.6, Basophils (%) ( Auto) 0.8, Neutrophils # (Auto) 11.9 H, Lymphocytes # (Auto) 1.0 L, Monocytes # (Auto) 0.9 H, Eosinophils # (Auto) 0.2, Basophils # (Auto) 0.1, Calcium Level 8.7 L, Aspartate Amino Transf (AST/SGOT) 20, Alanine Aminotransferase (ALT/SGPT ) 17, Alkaline Phosphatase 70, Total Bilirubin 1.1 H, Total Protein 7.2, Albumin 2.9 L Microbiology Microbiology 04/18/16 Blood Culture - Final, Complete NO GROWTH AFTER 5 DAYS 04/18/16 Urine Culture - Final, Complete ROMEO LUNDBERG MD Apr 25, 2016 12:00
[2016-04-25 14:00] VITALS: BP 144/81
[2016-04-25] MEDS: TORSEMIDE (DEMADEX) 50 MG PER 1/2 TAB PO SCH (17:25)
[2016-04-25] MEDS: **NOTE PATIENT COMMENT** MISC XX SCH (20:40)
--- NOTE | 2016-04-25 21:35 | IPN ---
DATE: 04/23/2016 SUBJECTIVE: The patient was seen and examined at the bedside. Today, she is actually sitting on the sofa. She denies any active complaints apart from her baseline shortness of breath requiring 3 liters of oxygen around the clock, and she also complains of lower extremity edema and cellulitis, which is slowly improving with diuretics and antibiotics. REVIEW OF SYSTEMS: The patient denies any fevers, chills, rigors, headache, nausea, vomiting, chest pain. She does report baseline shortness of breath. She denies any constipation, diarrhea, nausea, vomiting. She does report lower extremity edema and cellulitis. The rest of the review of systems is negative. OBJECTIVE: VITAL SIGNS: Temperature is 97.6 degrees Fahrenheit, blood pressure is 111/59, pulse is 97, respiratory rate of 18, saturating 94% on room air. INTAKE/OUTPUT: Urine output recorded yesterday is 4.1 liters, urine output so far today since overnight is 1350 mL. The patient is 2.8 liters negative yesterday and around 930 mL negative so far. Weight on the bed scale is 167.3 kg. PHYSICAL EXAMINATION: GENERAL: The patient is awake, alert, oriented times three, sitting on the sofa in no apparent distress. HEAD AND NECK EXAM: Extraocular muscles intact. Pupils equally round and reactive to light. Neck is supple. There is no jugular venous distention (JVD). Mucous membranes are moist. CARDIOVASCULAR: S1, S2. Regular rate. No murmur, rub or gallop. RESPIRATORY: Chest is clear to auscultation bilaterally and breath sounds are decreased at the bases. Otherwise, there are no active rales or rhonchi. ABDOMEN: Morbidly obese, soft, positive bowel sounds, nontender. I could not appreciate any organomegaly because of patient's body habitus. EXTREMITIES: The patient has erythema of the bilateral lower extremities because of cellulitis, and she has 2+ pitting edema of the legs, upper thighs. CENTRAL NERVOUS SYSTEM: No focal neurological deficit. Power is 5/5 in all extremities. PSYCHIATRIC: Normal mood and affect. LAB REVIEW: CBC showed a WBC of 11, hemoglobin is 8, platelets are 257. BMP showed sodium 141, potassium 4.1, chloride 101, bicarbonate 32, BUN 40, creatinine 1.17, calcium is 8.6, magnesium 2.3. Looking at patient's iron studies done on 03/25/2016, the patient was iron deficient. CURRENT MEDICATIONS: The patient's current medications were all reviewed by me and significant changes in the medication include iron sucrose 500 mg IV that was ordered by me yesterday and there is no other change in the current medications at this time. ASSESSMENT: A 66-year-old female who is morbidly obese, has congestive heart failure, chronic obstructive pulmonary disease (COPD), home oxygen dependent, being followed by nephrology for fluid overload and electrolyte abnormalities. PLAN: 1. Acute on chronic congestive heart failure. The patient is aggressively being diuresed. She is still fluid overloaded, but she is having a good urine output with current dose of torsemide 100 mg by mouth twice a day and spironolactone 25 mg by mouth twice a day; continue current dose. The patient is around 2 liters negative every day with the current regimen, and she is tolerating well. Blood pressure is stable. 2. Iron deficiency anemia. The patient's hemoglobin was slowly dropping and her iron levels were low. I have given her one dose of Venofer 500 mg IV yesterday, and I increased her dose of darbepoetin to 300 mcg subcu every Sunday. She will get the first dose today. 3. Acute kidney injury superimposed on chronic kidney disease. The patient has cardiorenal syndrome. Her creatinine is improving with the current dose of diuretics. Continue to diurese the patient at this time. Renal function is gradually improving. 4. Cellulitis of the bilateral lower extremities. The patient is currently on cefepime 1 gram IV every 12 hours. Continue current doses and last dose will be given on 04/26/2016.
[2016-04-25 22:00] VITALS: BP 134/62
[2016-04-26] MEDS: PERCOCET 5MG/325MG TAB PO PRN ×3 (00:31→22:08)
[2016-04-26] MEDS: SLF 3 ML SYR IV SCH ×3 (05:04→22:11)
[2016-04-26 06:00] VITALS: BP 104/59
[2016-04-26 07:04] LABS: BASO # 0.1 K/mm3 (0.0-0.2); BASO % 0.6 % (0.0-1.0); EOS # 0.3 K/mm3 (0.0-0.50); EOS % 2.2 % (0.0-3.0); LARGE UNSTAINED CELL # 0.2 K/mm3 (0.0-0.4); LARGE UNSTAINED CELL % 1.8 % (0.0-4.0); LYMPH % 7.5 % (24.0-44.0); MEAN CORPUSCULAR HEMOGLOBIN 30.6 pg (27.0-33.0); MEAN CORPUSCULAR HGB CONC 29.1 g/dl (32.0-36.5); MEAN CORPUSCULAR VOLUME 105.3 fl (80.0-96.0); MONO # 0.8 K/mm3 (0.0-0.8); MONO % 6.3 % (0.0-5.0); NEUTROPHILS % 81.6 % (36.0-66.0); PLATELET COUNT, AUTOMATED 243 k/mm3 (150-450); RED CELL DISTRIBUTION WIDTH 24.1 % (11.5-14.5); WHITE BLOOD COUNT 13.4 K/mm3 (4.0-10.0)
[2016-04-26 07:41] LABS: ALBUMIN 2.9 GM/DL (3.2-5.2); ALBUMIN/GLOBULIN RATIO 0.66 (1.00-1.93); CALCIUM LEVEL 8.4 MG/DL (8.8-10.2); CREATININE FOR GFR 1.35 MG/DL (0.55-1.02); GLOMERULAR FILTRATION RATE 41.8 (>45); MAGNESIUM LEVEL 2.3 MG/DL (1.8-2.4); POTASSIUM SERUM 4.3 MEQ/L (3.5-5.1); TOTAL PROTEIN 7.3 GM/DL (6.4-8.2)
[2016-04-26] MEDS: BREO ELLIPTA INH SCH (07:51)
[2016-04-26] MEDS: TIOTROPIUM INHALER/CAPSULE (SPIRIVA) INH SCH (07:51)
[2016-04-26] MEDS: IPRATROPIUM 0.5MG/ALBUTEROL 2.5MG INH SOL UD 3ML (DUONEB)(J7620) NEB SCH ×4 (07:52→19:11)
[2016-04-26] MEDS: TORSEMIDE 100 MG TAB PO SCH (08:06)
[2016-04-26] MEDS: METOPROLOL TART 12.5 MG PER 1/2 TAB PO SCH ×2 (08:06→22:10)
[2016-04-26] MEDS: PANTOPRAZOLE 40MG TAB (PROTONIX) PO SCH (08:06)
[2016-04-26] MEDS: FERROUS SULFATE 325MG TAB PO SCH (08:06)
[2016-04-26] MEDS: DABIGATRAN ETEXILATE 75 MG CAP (PRADAXA) PO SCH ×2 (08:06→22:09)
[2016-04-26] MEDS: ASCORBIC ACID 500 MG TAB PO SCH ×2 (08:07→16:56)
[2016-04-26] MEDS: MULTIVITAMINS/MINERALS THERAP 1 TAB PO SCH (08:07)
[2016-04-26] MEDS: ATORVASTATIN 20 MG TAB PO SCH (08:07)
[2016-04-26] MEDS: POTASSIUM CHLORIDE 10 MEQ SR TABLET PO SCH ×3 (08:07→22:09)
[2016-04-26] MEDS: LIDOCAINE 5% (LIDODERM) PATCH TD SCH (08:08)
[2016-04-26] MEDS: ASPIRIN 81 MG ENTERIC TAB PO SCH (08:08)
[2016-04-26] MEDS: SPIRONOLACTONE 25 MG TAB PO SCH ×2 (08:08→16:56)
[2016-04-26] MEDS: HumaLOG INSULIN (NovoLOG) PER UNIT SC SCH ×4 (08:09→21:00)
[2016-04-26] MEDS: NYSTATIN 100,000 UNITS/GM TOPICAL PWD 15 GM TOP SCH ×2 (08:09→22:10)
[2016-04-26] MEDS: DOCUSATE SODIUM 100 MG CAP PO PRN (08:11)
[2016-04-26] MEDS: LORATADINE 10 MG TAB PO PRN (08:11)
[2016-04-26] MEDS: MIRALAX *UNIT DOSE* 17GM PACKET PO PRN (09:13)
--- NOTE | 2016-04-26 10:33 | IPN ---
DATE: 04/24/2016 SUBJECTIVE: The patient was seen and examined at the bedside today. She is feeling better. She continues to be on oxygen via nasal cannula. She is responding very well to oral diuretics. She continues to be on in negative fluid balance every day. She has a very good urine output with the current dose of diuretics. However, she does complain of some dry mouth because of the diuretics, but she denies any leg cramps or abdominal cramps, and her blood pressure continues to be stable. REVIEW OF SYSTEMS: The patient reports some dry mouth, but she denies any chest pain. She does report baseline shortness of breath and she requires nasal cannula at 3 liters per minute. She denies any pain in the abdomen, constipation, or diarrhea. She continues to have lower extremity edema and erythema, which is slowly getting better. The rest of the review of systems is negative. OBJECTIVE: VITAL SIGNS: Temperature is 97.9 degrees Fahrenheit, blood pressure is 123/60, pulse is 97, respiratory rate of 18, saturating 92% on nasal cannula at 3 liters per minute. INTAKE/OUTPUT: Urine output recorded is 4.3 liters yesterday and so far she has made 1780 mL of urine so far since overnight. Weight on the bed scale is 164.1 kg. PHYSICAL EXAMINATION: GENERAL: The patient is awake, alert, oriented times three, sitting on the sofa, no apparent distress, wearing oxygen. HEAD AND NECK EXAM: Extraocular muscles intact. Pupils equally round and reactive to light. Neck is supple. There is no jugular venous distention (JVD). Mucous membranes are moist. CARDIOVASCULAR: S1, S2. Regular rate. No murmur, rub or gallop. RESPIRATORY: Chest is clear to auscultation bilaterally. Bilateral equal air entry. No rales or rhonchi. ABDOMEN: Abdomen is morbidly obese, soft, protuberant, positive bowel sounds, nontender. Positive abdominal wall edema. EXTREMITIES: The patient has erythema of the bilateral legs because of cellulitis, and she has 2+ pitting edema of the bilateral lower extremities up to the knees. CENTRAL NERVOUS SYSTEM: No focal neurological deficit. Power is 5/5 in all extremities. SKIN: The patient has positive redness and erythema of the bilateral legs and some blisters in the legs because of edema. PSYCHIATRIC: Normal mood and affect. LAB REVIEW: CBC showed a WBC of 14.2, hemoglobin is 7.5, platelets are 248. BMP showed sodium 139, potassium 4.1, chloride 100, bicarbonate 31, BUN 39, creatinine 1.17, calcium is 8.3, albumin is 2.7. CURRENT MEDICATIONS: The patient's current medications were all reviewed by me. She continues to be on intravenous cefepime, and her diuretics are still torsemide 100 mg by mouth twice a day and spironolactone 25 mg by mouth twice a day. ASSESSMENT: 66-year-old female with past medical history of morbidly obesity, chronic systolic and diastolic congestive heart failure. Nephrology service following the patient for acute renal failure superimposed on chronic kidney disease and volume overload. PLAN: 1. Acute kidney injury superimposed on chronic kidney disease. The patient's renal function is improving with aggressive diuresis so it was most likely cardiorenal syndrome. Continue aggressive diuresis at this time. 2. Acute on chronic congestive heart failure (CHF). The patient has very good response to the diuretics at this time. Continue current dose of torsemide 100 mg twice a day and spironolactone 25 mg by mouth twice a day. The patient is well adherent to 1500 mL of fluid intake every day and she is in negative fluid balance of almost 3 liters every day with the current diuretic regimen, and she is tolerating it well. Continue the current dose. 3. Anemia secondary to iron deficiency. The patient was given Venofer 500 mg intravenously yesterday and she was also given a dose of Aranesp 300 mcg yesterday as well. However, her hemoglobin is down to 7.5 today. It is okay to give her 1 unit of packed red blood cell transfusion, and then we shall wait for the IV iron infusion, Aranesp, to start functioning. 4. Lower extremity edema and cellulitis. She continues to be on intravenous antibiotics. Cultures are negative so far. Edema is slowly getting better with the oral diuretics. Plan of care was discussed with the hospitalist team, Dr. Matthew Huggins.
--- NOTE | 2016-04-26 10:44 | IPNPDOC ---
Assessment/Plan Date Seen The patient was seen on 04/26/16. Problems Problems: (1) Anasarca Status: Acute Problem Text: due to diastolic congestive heart failure. on multiple diuretics. (2) Cellulitis Status: Acute Problem Text: on cefepime currently was on ceftriaxone before. (3) Acute on chronic diastolic CHF (congestive heart failure) Status: Acute Problem Text: continue diuresis , daily weights. on lasix, diamox and spironolactone. (4) Acute and chronic respiratory failure with hypoxia Status: Acute Problem Text: multifactorial due to CAP and diastolic chf exacerbation and fluid slowly improving with diuresis and antibiotics. (5) CAP (community acquired pneumonia) Status: Resolved Problem Text: finished course on ceftriaxone. (6) Constipation Status: Resolved Problem Text: on bowel regimen (7) JANE (obstructive sleep apnea) Status: Chronic (8) Morbid obesity Status: Chronic (9) Diabetes Status: Chronic (10) Hypertension Status: Chronic (11) COPD (chronic obstructive pulmonary disease) Status: Chronic Problem Text: continue home meds. (12) CAD (coronary artery disease) Status: Chronic (13) Hyperlipidemia Status: Chronic (14) Mitral stenosis and incompetence Status: Chronic (15) Pulmonary hypertension Status: Chronic (16) Afib Status: Chronic Problem Text: on pradaxa (17) Chronic anemia Status: Chronic Problem Text: normocytic received venofer, prbc and darbapoietin (18) Allergy Status: Chronic Problem Text: continue loratidine (19) Hematuria Status: Resolved Problem Text: possibly from trama from [place] will monitor if continues may have to hold anticoagulants temporarily. (20) Chronic respiratory failure with hypoxia Status: Chronic Problem Text: now at baseline level of oxygen by nasal canula (21) SANTINO (acute kidney injury) Status: Acute Problem Text: due to aggressive diuresis will continue to monitor. diuretic dosage decreased today Plan / VTE VTE Prophylaxis Ordered?: Yes Plan / Urinary Catheter Reason for insertion/continuin: Other-document below Subjective Review of Systems CC/HPI The patient is a 66-year-old female admitted with a reason for visit of Acute Respiratory Distress. 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 Objective Physical Examination General Exam: Positive: Alert, No Acute Distress Eye Exam: Positive: Conjunctiva & lids normal, EOMI, PERRLA, Negative: Sclera icteric ENT Exam: Positive: Atraumatic, Mucous membr. moist/pink, Pharynx Normal Neck Exam: Positive: Supple, Negative: JVD, thyromegaly Chest Exam: Positive: Diminished Heart Exam: Positive: Normal S1, Normal S2, Rate Normal, Regular Rhythm Abdomen Exam: Positive: Normal bowel sounds, Soft, Negative: Hepatospenomegaly, Tenderness Extremity Exam: Positive: Edema, Other (redness and inflammation), Swelling, Tenderness Vital Signs/I&O Vital Signs Date Time Temp Pulse Resp B/P Pulse Ox O2 Delivery O2 Flow Rate FiO2 04/26/16 08:06 96 122/73 04/26/16 06:00 97.0 18 93 Nasal Cannula 3.0 I&O- Last 24 Hours up to 6 AM 04/26/16 06:00 Intake Total 1990 ml Output Total 3370 ml Balance -1380 ml Laboratory Data Labs 24H Laboratory Tests 2 04/25/16 11:41: Bedside Glucose (Misc Panel) 165H 04/25/16 16:34: Bedside Glucose (Misc Panel) 139H 04/25/16 20:54: Bedside Glucose (Misc Panel) 166H 04/26/16 06:43: White Blood Count 13.4H, Red Blood Count 2.86L, Hemoglobin 8.7L, Hematocrit 30.1L, Mean Corpuscular Volume 105.3H, Mean Corpuscular Hemoglobin 30.6, Mean Corpuscular Hemoglobin Concent 29.1L, Red Cell Distribution Width 24.1H, Platelet Count 243, Neutrophils (%) (Auto) 81.6H, Lymphocytes (%) (Auto) 7.5L, Monocytes (%) (Auto) 6.3H, Eosinophils (%) (Auto) 2.2, Basophils (%) (Auto) 0.6 , Neutrophils # (Auto) 11.0H, Lymphocytes # (Auto) 1.0L, Monocytes # (Auto) 0.8 , Eosinophils # (Auto) 0.3, Basophils # (Auto) 0.1, Large Unclassified Cells # 0.2, Large Unclassified Cells % 1.8 04/26/16 06:44: Blood Urea Nitrogen 43H, Creatinine 1.35H, Sodium Level 139, Potassium Level 4.3 , Chloride Level 98, Carbon Dioxide Level 34H, Calcium Level 8.4L, Aspartate Amino Transf (AST/SGOT) 22, Alanine Aminotransferase (ALT/SGPT) 19, Alkaline Phosphatase 67, Total Bilirubin 1.0, Total Protein 7.3, Albumin 2.9L, Albumin/ Globulin Ratio 0.66L, Anion Gap 7L, C-Reactive Protein, Quantitative 1.14H, Glomerular Filtration Rate 41.8L, Magnesium Level 2.3 CBC/BMP Laboratory Tests 04/26/16 06:43 Red Blood Count 2.86 L, Mean Corpuscular Volume 105.3 H, Mean Corpuscular Hemoglobin 30.6, Mean Corpuscular Hemoglobin Concent 29.1 L, Red Cell Distribution Width 24.1 H, Neutrophils (%) (Auto) 81.6 H, Lymphocytes (%) (Auto ) 7.5 L, Monocytes (%) (Auto) 6.3 H, Eosinophils (%) (Auto) 2.2, Basophils (%) ( Auto) 0.6, Neutrophils # (Auto) 11.0 H, Lymphocytes # (Auto) 1.0 L, Monocytes # (Auto) 0.8, Eosinophils # (Auto) 0.3, Basophils # (Auto) 0.1 04/26/16 06:44 Calcium Level 8.4 L, Aspartate Amino Transf (AST/SGOT) 22, Alanine Aminotransferase (ALT/SGPT) 19, Alkaline Phosphatase 67, Total Bilirubin 1.0, Total Protein 7.3, Albumin 2.9 L FSBS Laboratory Tests Test 04/25/16 11:41 04/25/16 16:34 04/25/16 20:54 Range/Units Bedside Glucose (Misc Panel) 165 139 166 80-115 MG/DL Microbiology Microbiology 04/18/16 Blood Culture - Final, Complete NO GROWTH AFTER 5 DAYS 04/18/16 Urine Culture - Final, Complete ROMEO LUNDBERG MD Apr 26, 2016 10:44
[2016-04-26] MEDS: ONDANSETRON 4MG/2ML VIAL (J2405) IV PRN (11:57)
[2016-04-26] MEDS: TORSEMIDE (DEMADEX) 50 MG PER 1/2 TAB PO SCH (16:56)
[2016-04-26] MEDS: **NOTE PATIENT COMMENT** MISC XX SCH (21:00)
--- NOTE | 2016-04-26 21:13 | IPN ---
DATE: 04/25/2016 SUBJECTIVE: Patient was seen and examined at the bedside today morning. She complained of very dry mouth and off and on cramping of the bilateral upper extremities. She otherwise continues to have good diuretic response with the current dose of diuretics. Renal function is slightly worse as compared with yesterday. REVIEW OF SYSTEMS: Patient denies any fevers, chills, rigors, headache, nausea, vomiting, or chest pain. She does report baseline shortness of breath, and she requires oxygen. She denies any pain in abdomen, constipation, or diarrhea. Patient does report dry mouth and cramping of the upper extremities. She also reports lower extremity edema, which is improving at this time. OBJECTIVE: Vital signs: Temperature is 97.7 degrees Fahrenheit, blood pressure is 144/81, pulse is 108, respiratory rate of 18, saturating 90% on nasal cannula at 3 liters per minute. Intake and output: Urine output is 3.5 liters yesterday and 2.3 liters so far today since overnight. Patient is in negative fluid balance every day persistently, almost 2 liters every 24 hours. Weight in the bed scale is 164.5 kg. PHYSICAL EXAMINATION: HEAD AND NECK: Extraocular muscles intact. Pupils equally round and reactive to light. Neck is supple with no jugular venous distention (JVD). CARDIOVASCULAR: S1, S2, regular rate. No murmur, rub, or gallop. RESPIRATORY: Chest is clear to auscultation bilaterally. Bilateral equal air entry. No rales or rhonchi. ABDOMEN: Soft. Positive bowel sounds. It is very obese, protuberant. She has abdominal wall edema. EXTREMITIES: Patient has bilateral erythema in the legs because of cellulitis, and she has 2+ pitting edema of the bilateral lower extremities up to thighs. CENTRAL NERVOUS SYSTEM: No focal neurological deficit. Power is 5/5 in all extremities. SKIN: Positive redness and chronic venous stasis changes in both legs. PSYCHIATRIC: Normal mood and affect. LABORATORY RE VIEW: CBC shows WBC 14.5, hemoglobin 8.5, platelets are 263. BMP showed sodium 140, potassium 4.6, chloride 100, bicarbonate 33, BUN 41, creatinine 1.29, calcium 8.7. Ionized calium was 4.4, magnesium 2.3. Microbiology: Blood cultures and urine culture are negative so far. CURRENT MEDICATIONS: Patient's current medications were all reviewed by me. She was given calcium gluconate 1 gram intravenous (IV) today morning for hypocalcemia. I have decreased the dose of torsemide to 100 mg in the morning and 50 mg in the evening. She continues to be on spironolactone 25 mg by mouth twice a day. ASSESSMENT: A 66-year-old female with past medical history of morbid obesity, chronic systolic and diastolic congestive heart failure. Nephrology service following the patient for acute renal failure superimposed on chronic kidney disease and volume overload. PLAN: 1. Acute kidney injury superimposed on chronic kidney disease. Patient's renal function is slightly worse today. Looks like she is slightly volume depleted. I am going to decrease the dose of diuretics today. Acute kidney injury was secondary to cardiorenal syndrome. 2. Acute on chronic congestive heart failure. Patient is having very good diuretic response, but because of metabolic alkalosis, cramping, and slightly worsening kidney function, I am going to decrease the dose of diuretics. Continue torsemide 100 mg in the morning, 50 mg in the evening, and spironolactone 25 mg twice a day. 3. Anemia secondary to iron deficiency. Patient is status post IV iron infusion. She also got 1 unit or packed red blood cells (PRBC) transfusion yesterday, and she got a dose of Aranesp 200 mcg. Hemoglobin is 8.5. Continue to monitor for now. 4. Metabolic alkalosis. Patient has chronic metabolic alkalosis secondary to chronic obstructive pulmonary disease (COPD), but her bicarbonate is slowly going up, which might be secondary to contraction and volume depletion. Decrease diuretic dose as mentioned above. 5. Lower extremity edema and cellulitis. Continue diuresis. Continue cefepime. Last dose will be tomorrow. Patient would benefit from wrapping of the lower extremities.
[2016-04-26 22:00] VITALS: BP 146/63
[2016-04-27] MEDS: PERCOCET 5MG/325MG TAB PO PRN ×3 (03:29→20:40)
[2016-04-27 06:00] VITALS: BP 118/57
[2016-04-27] MEDS: SLF 3 ML SYR IV SCH ×4 (06:00→22:28)
[2016-04-27 06:30] LABS: DIFF SLIDE NUMBER 9; MEAN CORPUSCULAR HEMOGLOBIN 30.2 pg (27.0-33.0); MEAN CORPUSCULAR HGB CONC 28.2 g/dl (32.0-36.5); MEAN CORPUSCULAR VOLUME 107.2 fl (80.0-96.0); PLATELET COUNT, AUTOMATED 271 k/mm3 (150-450); RED CELL DISTRIBUTION WIDTH 23.4 % (11.5-14.5); WHITE BLOOD COUNT 12.3 K/mm3 (4.0-10.0)
[2016-04-27 06:41] LABS: ALBUMIN 2.9 GM/DL (3.2-5.2); ALBUMIN/GLOBULIN RATIO 0.71 (1.00-1.93); BILIRUBIN,TOTAL 0.9 MG/DL (0.2-1.0); CALCIUM LEVEL 8.6 MG/DL (8.8-10.2); CREATININE FOR GFR 1.38 MG/DL (0.55-1.02); GLOMERULAR FILTRATION RATE 40.7 (>45); MAGNESIUM LEVEL 2.4 MG/DL (1.8-2.4); POTASSIUM SERUM 4.4 MEQ/L (3.5-5.1)
[2016-04-27 06:50] LABS: ANISOCYTOSIS 3+; BASOPHILS 1 % (0-4); EOSINOPHILS 3 % (0-5); NUCLEATED RED BLOOD CELL 2 % (0-0); POLYCHROMASIA 2+
[2016-04-27] MEDS: BREO ELLIPTA INH SCH (07:27)
[2016-04-27] MEDS: TIOTROPIUM INHALER/CAPSULE (SPIRIVA) INH SCH (07:27)
[2016-04-27] MEDS: IPRATROPIUM 0.5MG/ALBUTEROL 2.5MG INH SOL UD 3ML (DUONEB)(J7620) NEB SCH ×4 (07:28→19:26)
[2016-04-27] MEDS: HumaLOG INSULIN (NovoLOG) PER UNIT SC SCH ×4 (07:34→20:32)
[2016-04-27] MEDS: DOCUSATE SODIUM 100 MG CAP PO PRN ×2 (08:15→20:40)
[2016-04-27] MEDS: LIDOCAINE 5% (LIDODERM) PATCH TD SCH (08:16)
[2016-04-27] MEDS: LORATADINE 10 MG TAB PO PRN (08:16)
[2016-04-27] MEDS: POTASSIUM CHLORIDE 10 MEQ SR TABLET PO SCH ×3 (08:17→20:41)
[2016-04-27] MEDS: DABIGATRAN ETEXILATE 75 MG CAP (PRADAXA) PO SCH ×2 (08:17→20:41)
[2016-04-27] MEDS: SPIRONOLACTONE 25 MG TAB PO SCH ×2 (08:17→17:40)
[2016-04-27] MEDS: FERROUS SULFATE 325MG TAB PO SCH (08:17)
[2016-04-27] MEDS: PANTOPRAZOLE 40MG TAB (PROTONIX) PO SCH (08:17)
[2016-04-27] MEDS: MULTIVITAMINS/MINERALS THERAP 1 TAB PO SCH (08:17)
[2016-04-27] MEDS: TORSEMIDE 100 MG TAB PO SCH (08:17)
[2016-04-27] MEDS: ASCORBIC ACID 500 MG TAB PO SCH ×2 (08:17→17:40)
[2016-04-27] MEDS: ATORVASTATIN 20 MG TAB PO SCH (08:17)
[2016-04-27] MEDS: ASPIRIN 81 MG ENTERIC TAB PO SCH (08:17)
[2016-04-27] MEDS: NYSTATIN 100,000 UNITS/GM TOPICAL PWD 15 GM TOP SCH ×2 (08:18→20:42)
[2016-04-27] MEDS: METOPROLOL TART 12.5 MG PER 1/2 TAB PO SCH ×2 (08:18→20:41)
[2016-04-27 14:00] VITALS: BP 109/58
--- NOTE | 2016-04-27 15:04 | IPN ---
DATE: 04/26/2016 SUBJECTIVE: Patient was seen and examined at the bedside today, she was sitting in the sofa. She reports that her hand cramps are better today, but she still reports shortness of breath on mild exertion. REVIEW OF SYSTEMS: Patient denies any fever, chills, rigors. She denies any chest pain. She does report baseline of shortness of breath and shortness of breath on mild exertion. She denies any nausea or vomiting, but she does report decreased appetite and patient reports persistent lower extremity edema and erythema. Rest of review of systems is negative. OBJECTIVE: VITAL SIGNS: Temperature 98.2 degrees Fahrenheit, blood pressure 122/73, pulse 96, respiratory rate 18, saturating at 92% on nasal cannula at 3 liters. INTAKE/OUTPUT: Urine output recorded is 3600 mL yesterday and around 2.6 liters so far today since overnight. Weight in the bed scale is 165 kg and she continues to be persistently in negative fluid balance, she was 1.7 liters negative yesterday and 1.5 liters negative so far today. PHYSICAL EXAMINATION: GENERAL: Patient is awake, alert, oriented times three, sitting in the sofa, no apparent distress, wearing nasal cannula. HEAD and NECK: Extraocular muscles intact. Pupils equally round and reactive to light. Neck is supple. There is no jugular venous distention (JVD). CARDIOVASCULAR: S1, S2, regular rate. No murmur, rub, or gallop. RESPIRATORY: Chest is clear to auscultation bilaterally. Bilateral equal air entry. No rales or rhonchi. ABDOMEN: Morbidly obese, soft, protruberant, positive bowel sounds, positive abdominal wall edema. EXTREMITIES: Patient has erythema of the bilateral legs because of cellulitis. She has 2+ pitting edema of the bilateral lower extremities up to the knees. 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 Power is 5/5 in all extremities. SKIN: Patient has some blisters on the left leg, they are covered by dressing, and erythema of both legs as mentioned above. PSYCHIATRIC: Normal mood and affect. LABORATORY REVIEW: CBC showed WBC 13.4, hemoglobin 8.7, platelets 243. BMP showed sodium 139, potassium 4.3, chloride 98, bicarbonate 34, BUN 43, creatinine 1.35, it was 1.29 yesterday, calcium is 8.4, ionized calcium is not done today, magnesium 2.3. CURRENT MEDICATIONS: Patient's current medications were all reviewed by me. Her cefepime has been stopped now. She has finished a 1 week course of antibiotics and her diuretics were changed yesterday to torsemide 100 mg in the morning, 50 mg in the evening. ASSESSMENT: 66-year-old female with past medical history of morbid obesity, chronic systolic and diastolic congestive heart failure, nephrology service following the patient for management of acute renal failure superimposed on chronic kidney disease and volume overload. PLAN: 1. Acute kidney injury superimposed on chronic kidney disease. Patient's renal function slightly bumped up today because of aggressive diuresis. I have already decreased the dose of torsemide yesterday. Continue to follow for now. If renal function continues to deteriorate, then I would further decrease the diuretic dose. 2. Acute on chronic congestive heart failure. Patient's diuretic regimen is torsemide 100 mg in the morning, 50 mg in the evening, and spironolactone 25 mg by mouth twice a day. She has significant urine output with the current regimen. She is in negative fluid balance every day. Continue to monitor daily urine output and daily weight. 3. Anemia secondary to iron deficiency. Patient is status post one unit packed red blood cells (PRBCs) transfusion during this week, 500 of Venofer, and she was also given a dose of Aranesp. Hemoglobin is trending up. Continue to monitor for now. 4. Lower extremity edema and cellulitis. She is status post 1 week of antibiotics. She has blisters on the lower extremities which have dressing. Patient would benefit from compression dressings as well.
[2016-04-27] MEDS: TORSEMIDE (DEMADEX) 50 MG PER 1/2 TAB PO SCH (17:40)
[2016-04-27] MEDS: **NOTE PATIENT COMMENT** MISC XX SCH (20:43)
[2016-04-27 22:00] VITALS: BP 120/75
[2016-04-27] MEDS: CEPACOL LOZENGE PO PRN (22:31)
[2016-04-28 06:00] VITALS: BP 107/51
[2016-04-28 06:40] LABS: MEAN CORPUSCULAR HEMOGLOBIN 30.7 pg (27.0-33.0); MEAN CORPUSCULAR HGB CONC 28.3 g/dl (32.0-36.5); MEAN CORPUSCULAR VOLUME 108.3 fl (80.0-96.0); PLATELET COUNT, AUTOMATED 242 k/mm3 (150-450); RED CELL DISTRIBUTION WIDTH 24.7 % (11.5-14.5); WHITE BLOOD COUNT 10.5 K/mm3 (4.0-10.0)
[2016-04-28] MEDS: CEPACOL LOZENGE PO PRN (06:57)
[2016-04-28 07:04] LABS: ALBUMIN 2.8 GM/DL (3.2-5.2); ALBUMIN/GLOBULIN RATIO 0.74 (1.00-1.93); BASOPHILS 2 % (0-4); BILIRUBIN,TOTAL 0.9 MG/DL (0.2-1.0); CALCIUM LEVEL 8.3 MG/DL (8.8-10.2); CREATININE FOR GFR 1.35 MG/DL (0.55-1.02); EOSINOPHILS 2 % (0-5); GLOMERULAR FILTRATION RATE 41.8 (>45); MAGNESIUM LEVEL 2.4 MG/DL (1.8-2.4); NUCLEATED RED BLOOD CELL 2 % (0-0); POTASSIUM SERUM 4.2 MEQ/L (3.5-5.1); TOTAL PROTEIN 6.6 GM/DL (6.4-8.2)
[2016-04-28 07:05] LABS: POLYCHROMASIA 1+
[2016-04-28] MEDS: IPRATROPIUM 0.5MG/ALBUTEROL 2.5MG INH SOL UD 3ML (DUONEB)(J7620) NEB SCH ×4 (08:00→19:36)
[2016-04-28] MEDS: LORATADINE 10 MG TAB PO PRN (08:36)
[2016-04-28] MEDS: DABIGATRAN ETEXILATE 75 MG CAP (PRADAXA) PO SCH ×2 (08:36→20:31)
[2016-04-28] MEDS: MULTIVITAMINS/MINERALS THERAP 1 TAB PO SCH (08:36)
[2016-04-28] MEDS: HumaLOG INSULIN (NovoLOG) PER UNIT SC SCH ×4 (08:36→20:23)
[2016-04-28] MEDS: ASPIRIN 81 MG ENTERIC TAB PO SCH (08:36)
[2016-04-28] MEDS: TORSEMIDE 100 MG TAB PO SCH (08:36)
[2016-04-28] MEDS: DOCUSATE SODIUM 100 MG CAP PO PRN ×2 (08:36→20:30)
[2016-04-28] MEDS: ATORVASTATIN 20 MG TAB PO SCH (08:36)
[2016-04-28] MEDS: FERROUS SULFATE 325MG TAB PO SCH (08:36)
[2016-04-28] MEDS: LIDOCAINE 5% (LIDODERM) PATCH TD SCH (08:37)
[2016-04-28] MEDS: ASCORBIC ACID 500 MG TAB PO SCH ×2 (08:37→18:01)
[2016-04-28] MEDS: METOPROLOL TART 12.5 MG PER 1/2 TAB PO SCH ×2 (08:37→20:31)
[2016-04-28] MEDS: SPIRONOLACTONE 25 MG TAB PO SCH ×2 (08:37→16:07)
[2016-04-28] MEDS: PANTOPRAZOLE 40MG TAB (PROTONIX) PO SCH (08:37)
[2016-04-28] MEDS: POTASSIUM CHLORIDE 10 MEQ SR TABLET PO SCH ×3 (08:37→20:31)
[2016-04-28] MEDS: NYSTATIN 100,000 UNITS/GM TOPICAL PWD 15 GM TOP SCH ×2 (08:38→20:31)
[2016-04-28] MEDS: TIOTROPIUM INHALER/CAPSULE (SPIRIVA) INH SCH (08:52)
[2016-04-28] MEDS: BREO ELLIPTA INH SCH (08:52)
[2016-04-28 14:00] VITALS: BP 103/60
[2016-04-28 14:03] VITALS: BP 129/59
[2016-04-28] MEDS: PERCOCET 5MG/325MG TAB PO PRN ×2 (14:28→23:19)
--- NOTE | 2016-04-28 16:01 | IPN ---
DATE: 04/27/2016 SUBJECTIVE: The patient was seen and examined at the bedside today. She is actually sitting in the sofa today. She feels much better. Her shortness of breath is at her baseline and her renal function is stable as compared with yesterday and she continues to diurese well with the current diuretic regimen. REVIEW OF SYSTEMS: The patient denies any fever, chills, rigors, headache, nausea, vomiting, any chest pain. She does have baseline shortness of breath and she is wearing nasal cannula. She denies any constipation, pain in abdomen or diarrhea. She reports persistent lower extremity edema and weeping of blisters from the leg. The rest of the review of systems is negative. OBJECTIVE: VITAL SIGNS: Temperature is 97.1 degrees Fahrenheit, blood pressure is 118/57, pulse is 98, respiratory rate of 18, saturating 92% on nasal cannula at 3 liters per minute. Intake and output: Urinary output recorded as 3.7 liters yesterday and 400 mL of water so far today since overnight. The patient is in negative 2 liters of fluid balance according to Intake and output (I and O). Weight on the bed scale, however, continues to be around 165.5. PHYSICAL EXAMINATION: GENERAL: The patient is awake, alert and oriented times three. Sitting on the sofa. No apparent distress. HEAD/NECK: Extraocular muscles intact. Pupils equally round and reactive to light. Neck is supple. There is no jugular venous distention (JVD). CARDIOVASCULAR: S1, S2, regular rate. No murmur, rub or gallop. RESPIRATORY: The patient is wearing nasal cannula. Chest is clear to auscultation bilaterally. Bilateral equal air entry. No rales or rhonchi. ABDOMEN: Soft. Obese. Positive bowel sounds. Protuberant abdomen. Positive abdominal wall edema. EXTREMITIES: The patient has bilateral leg edema of the legs because of recent cellulitis and she has some ulcerations on the left leg covered by a dressing at this time. She has 2+ pitting edema of the bilateral legs up to the thighs. CENTRAL NERVOUS SYSTEM: No focal neurological deficit. Power is 5/5 in all extremities. SKIN: Positive redness and venous stasis changes along with blisters and ulcerations of the left leg. LABORATORY RESULTS: CBC showed a WBC 12.3, hemoglobin 8.9, platelets at 271. BMP shows sodium 139, potassium 4.4, chloride 99, bicarbonate 31, BUN 44, creatinine is 1.38. It was 1.35 yesterday. Calcium was 8.6, whole blood ionized calcium was 4.5. Magnesium is 2.4. Albumin is 2.9. CURRENT MEDICATIONS: The patient's medications are all reviewed by me. She is not on antibiotics at this moment and there is no other change in the diuretic regimen at this time either. ASSESSMENT: 66-year-old female with past medical history of morbid obesity, chronic systolic and diastolic congestive heart failure. Nephrology service following the patient for management of fluid overload. PLAN: 1. Acute on chronic congestive heart failure. The patient is having good diuretic response to the current regimen of torsemide 100 mg in the morning, 50 in the evening, and spironolactone 25 mg by mouth twice a day. She is in negative fluid balance, almost 2 liters every day according to Intake and output (I and O), but her weight is still stable at around 165. Continue the current dose of diuretic regimen. 2. Acute kidney injury superimposed on chronic kidney disease. The patient's renal function is stable. Creatinine keeps on fluctuating between 1.2 and 1.3. Continue the aggressive diuresis. Acute renal failure was secondary to cardiorenal syndrome. 3. Anemia secondary to iron deficiency. The patient is status post IV iron infusion. She was given one dose of Aranesp 300 mcg this week. Next dose will be given next week. 4. Lower extremity edema and cellulitis. Continue the current diuretics. She is status post one dose of antibiotics. The patient would benefit from compression dressings on bilateral lower extremities.
[2016-04-28] MEDS: TORSEMIDE (DEMADEX) 50 MG PER 1/2 TAB PO SCH (16:09)
[2016-04-28] MEDS: **NOTE PATIENT COMMENT** MISC XX SCH (20:32)
[2016-04-28 22:00] VITALS: BP 132/61
[2016-04-29] MEDS: IPRATROPIUM 0.5MG/ALBUTEROL 2.5MG INH SOL UD 3ML (DUONEB)(J7620) NEB PRN (05:39)
[2016-04-29 06:00] VITALS: BP 108/55
[2016-04-29] MEDS: BREO ELLIPTA INH SCH (07:57)
[2016-04-29] MEDS: IPRATROPIUM 0.5MG/ALBUTEROL 2.5MG INH SOL UD 3ML (DUONEB)(J7620) NEB SCH ×4 (07:58→19:55)
[2016-04-29] MEDS: DOCUSATE SODIUM 100 MG CAP PO PRN ×2 (09:56→20:33)
[2016-04-29] MEDS: ASPIRIN 81 MG ENTERIC TAB PO SCH (09:56)
[2016-04-29] MEDS: LORATADINE 10 MG TAB PO PRN (09:58)
[2016-04-29] MEDS: ASCORBIC ACID 500 MG TAB PO SCH ×2 (09:58→17:54)
[2016-04-29] MEDS: TORSEMIDE 100 MG TAB PO SCH (09:58)
[2016-04-29] MEDS: MULTIVITAMINS/MINERALS THERAP 1 TAB PO SCH (09:58)
[2016-04-29] MEDS: FERROUS SULFATE 325MG TAB PO SCH (09:58)
[2016-04-29] MEDS: PANTOPRAZOLE 40MG TAB (PROTONIX) PO SCH (09:59)
[2016-04-29] MEDS: POTASSIUM CHLORIDE 10 MEQ SR TABLET PO SCH ×3 (09:59→20:31)
[2016-04-29] MEDS: SPIRONOLACTONE 25 MG TAB PO SCH ×2 (10:00→16:38)
[2016-04-29] MEDS: HumaLOG INSULIN (NovoLOG) PER UNIT SC SCH ×4 (10:00→20:40)
[2016-04-29] MEDS: DABIGATRAN ETEXILATE 75 MG CAP (PRADAXA) PO SCH ×2 (10:01→20:31)
[2016-04-29] MEDS: ATORVASTATIN 20 MG TAB PO SCH (10:01)
[2016-04-29] MEDS: LIDOCAINE 5% (LIDODERM) PATCH TD SCH (10:01)
[2016-04-29] MEDS: METOPROLOL TART 12.5 MG PER 1/2 TAB PO SCH ×2 (10:02→20:32)
[2016-04-29] MEDS: NYSTATIN 100,000 UNITS/GM TOPICAL PWD 15 GM TOP SCH ×2 (10:03→20:33)
[2016-04-29] MEDS: metOLazone 2.5 MG TAB PO SCH (13:19)
[2016-04-29] MEDS: CEPACOL LOZENGE PO PRN (15:05)
[2016-04-29] MEDS: PERCOCET 5MG/325MG TAB PO PRN ×2 (15:06→22:26)
[2016-04-29] MEDS: FLUTICASONE PROP 0.05% NASAL SPRAY 16 GM (FLONASE) PRN (15:06)
[2016-04-29] MEDS: TORSEMIDE (DEMADEX) 50 MG PER 1/2 TAB PO SCH (16:38)
[2016-04-29] MEDS: TIOTROPIUM INHALER/CAPSULE (SPIRIVA) INH SCH (19:42)
[2016-04-29] MEDS: **NOTE PATIENT COMMENT** MISC XX SCH (20:33)
[2016-04-29 22:00] VITALS: BP 122/64
[2016-04-30 06:00] VITALS: BP 113/58
[2016-04-30 06:49] LABS: ALBUMIN 3.2 GM/DL (3.2-5.2); CALCIUM LEVEL 8.6 MG/DL (8.8-10.2); CREATININE FOR GFR 1.22 MG/DL (0.55-1.02); GLOMERULAR FILTRATION RATE 46.9 (>45); POTASSIUM SERUM 3.7 MEQ/L (3.5-5.1)
[2016-04-30] MEDS: TIOTROPIUM INHALER/CAPSULE (SPIRIVA) INH SCH (07:26)
[2016-04-30] MEDS: BREO ELLIPTA INH SCH (07:26)
[2016-04-30] MEDS: IPRATROPIUM 0.5MG/ALBUTEROL 2.5MG INH SOL UD 3ML (DUONEB)(J7620) NEB SCH ×4 (08:00→19:30)
[2016-04-30] MEDS: DOCUSATE SODIUM 100 MG CAP PO PRN (08:11)
[2016-04-30] MEDS: MULTIVITAMINS/MINERALS THERAP 1 TAB PO SCH (08:11)
[2016-04-30] MEDS: HumaLOG INSULIN (NovoLOG) PER UNIT SC SCH ×4 (08:11→21:00)
[2016-04-30] MEDS: LORATADINE 10 MG TAB PO PRN (08:13)
[2016-04-30] MEDS: ASPIRIN 81 MG ENTERIC TAB PO SCH (08:13)
[2016-04-30] MEDS: metOLazone 2.5 MG TAB PO SCH (08:13)
[2016-04-30] MEDS: SPIRONOLACTONE 25 MG TAB PO SCH ×2 (08:13→17:31)
[2016-04-30] MEDS: ATORVASTATIN 20 MG TAB PO SCH (08:14)
[2016-04-30] MEDS: DABIGATRAN ETEXILATE 75 MG CAP (PRADAXA) PO SCH ×2 (08:14→22:25)
[2016-04-30] MEDS: METOPROLOL TART 12.5 MG PER 1/2 TAB PO SCH ×2 (08:14→22:24)
[2016-04-30] MEDS: PANTOPRAZOLE 40MG TAB (PROTONIX) PO SCH (08:15)
[2016-04-30] MEDS: ASCORBIC ACID 500 MG TAB PO SCH ×2 (08:15→17:31)
[2016-04-30] MEDS: POTASSIUM CHLORIDE 10 MEQ SR TABLET PO SCH ×3 (08:15→22:25)
[2016-04-30] MEDS: FERROUS SULFATE 325MG TAB PO SCH (08:15)
[2016-04-30] MEDS: TORSEMIDE 100 MG TAB PO SCH (08:16)
[2016-04-30] MEDS: LIDOCAINE 5% (LIDODERM) PATCH TD SCH (08:16)
[2016-04-30] MEDS: NYSTATIN 100,000 UNITS/GM TOPICAL PWD 15 GM TOP SCH ×2 (08:17→22:26)
[2016-04-30] MEDS ORDERED: POTASSIUM CHLORIDE 10 MEQ SR TABLET PO ONE (09:00)
[2016-04-30] MEDS ORDERED: TORSEMIDE (DEMADEX) 50 MG PER 1/2 TAB PO SCH (09:00)
--- NOTE | 2016-04-30 09:17 | IPN ---
DATE: 04/28/2016 SUBJECTIVE: The patient was seen and examined at the bedside today in the morning. There is a foul smelling coming in the room, apparently from her fungal rashes in the skin folds. The patient denies any active complaints at this time. Her renal function is stable. REVIEW OF SYSTEMS: The patient denies any fevers, chills, rigors, headache, nausea, vomiting, chest pain. She has baseline shortness of breath requiring oxygen. She does complain that in the last 24 hours, she had one episodes of cramping in the upper extremities, and she does report a dry mouth because of the diuretics. She denies any pain in the abdomen, constipation or diarrhea. She does report weeping ulcers from the left leg. The rest of the review of systems is negative. OBJECTIVE: VITAL SIGNS: Temperature is 96.6 degrees Fahrenheit. Blood pressure is 107/51, pulse is 94, respiratory rate of 18, saturating 96% on nasal cannula. INTAKE/OUTPUT: Urine output recorded as 1.9 liters yesterday and 1400 mL so far today since overnight. PHYSICAL EXAMINATION: GENERAL: The patient is awake, alert, oriented times three, sitting on the sofa, wearing nasal cannula, in no apparent distress but there is a foul smell coming from the patient. HEAD AND NECK EXAM: Extraocular muscles intact. Pupils equally round and reactive to light. Neck is supple. There is no jugular venous distention (JVD). CARDIOVASCULAR: S1, S2, regular rate. No murmur, rub or gallop. RESPIRATORY: Chest is clear to auscultation bilaterally. Bilateral equal air entry. No rales or rhonchi. ABDOMEN: Abdomen is soft, obese, protuberant. Positive bowel sounds. Positive abdominal wall edema. EXTREMITIES: The patient has erythema of the bilateral legs because of cellulitis. Left leg is wrapped in dressings. She has 2+ pitting edema of the bilateral lower extremities up to knees. CENTRAL NERVOUS SYSTEM: No focal neurological deficit. Power is 5/5 in all extremities. SKIN: The patient has some blisters and weeping ulcers on the left leg, which are covered in dressing. There is erythema of the bilateral lower extremities and the patient also has a fungal rash in the skin folds in the abdomen, groin area and below the breast. PSYCHIATRIC: Normal mood and affect. LAB REVIEW: CBC showed a WBC of 10.5, hemoglobin 8.5, platelets are 242. BMP showed sodium 141, potassium 4.2, chloride 102, bicarbonate 31, BUN 44, creatinine 1.35, calcium 8.3, magnesium 2.4, albumin 2.8. CURRENT MEDICATIONS: The patient's current medications were all reviewed by me. There is no change in the medications today as compared with yesterday. ASSESSMENT: A 66-year-old female with a past medical history of morbid obesity, chronic systolic and diastolic heart failure. Nephrology service is following the patient for management of acute renal failure superimposed on chronic kidney disease and volume overload. PLAN: 1. Acute kidney injury superimposed on chronic kidney disease. The patient's renal function is stable. Her creatinine is fluctuating between 1.2 and 1.3. Continue the aggressive diuresis at this time. Cause of acute kidney injury (SANTINO) is most likely cardiorenal syndrome. 2. Acute on chronic congestive heart failure. The patient continues to diurese well with current dose of her torsemide 100 mg in the morning, 50 mg in the evening and spironolactone 25 mg by mouth twice a day. The patient still is significantly fluid overloaded. I would continue the current dose of diuretics as long as her labs stay stable. 3. Anemia secondary to iron deficiency. The patient got one dose of Aranesp 300 mcg subcu last Sunday. The patient will get the next dose this Sunday as well. Hemoglobin is still below target. 4. Lower extremity edema and cellulitis. The patient is status post 1-week of antibiotics. Continue current wound care of blisters with dressings. 5. Fungal rash. Continue Nystatin powder at this time. If the rash does not improve, then the patient would need to start oral fluconazole.
[2016-04-30] MEDS: DARBEPOETIN 300 MCG/0.6 ML *NON-DIALYSIS* SYRINGE (J0881) SC SCH (11:01)
[2016-04-30] MEDS: PERCOCET 5MG/325MG TAB PO PRN (11:04)
[2016-04-30] MEDS: MIRALAX *UNIT DOSE* 17GM PACKET PO PRN (11:04)
[2016-04-30] MEDS: guaiFENesin ER 600 MG TAB PO PRN (12:25)
[2016-04-30 14:00] VITALS: BP 107/61
[2016-04-30] MEDS: TORSEMIDE (DEMADEX) 50 MG PER 1/2 TAB PO SCH (17:31)
[2016-04-30] MEDS: **NOTE PATIENT COMMENT** MISC XX SCH (21:00)
[2016-04-30 22:00] VITALS: BP 126/64
[2016-05-01] MEDS: PERCOCET 5MG/325MG TAB PO PRN ×4 (02:38→22:48)
[2016-05-01 06:00] VITALS: BP 102/58
[2016-05-01 06:12] LABS: MEAN CORPUSCULAR HEMOGLOBIN 30.9 pg (27.0-33.0); MEAN CORPUSCULAR HGB CONC 29.3 g/dl (32.0-36.5); MEAN CORPUSCULAR VOLUME 105.7 fl (80.0-96.0); RED CELL DISTRIBUTION WIDTH 21.1 % (11.5-14.5); WHITE BLOOD COUNT 8.2 K/mm3 (4.0-10.0)
[2016-05-01 06:26] LABS: CALCIUM LEVEL 8.8 MG/DL (8.8-10.2); CREATININE FOR GFR 1.22 MG/DL (0.55-1.02); GLOMERULAR FILTRATION RATE 46.9 (>45); POTASSIUM SERUM 3.7 MEQ/L (3.5-5.1)
[2016-05-01] MEDS: TIOTROPIUM INHALER/CAPSULE (SPIRIVA) INH SCH (07:59)
[2016-05-01] MEDS: IPRATROPIUM 0.5MG/ALBUTEROL 2.5MG INH SOL UD 3ML (DUONEB)(J7620) NEB SCH ×4 (08:00→19:12)
[2016-05-01] MEDS: BREO ELLIPTA INH SCH (08:00)
[2016-05-01] MEDS: HumaLOG INSULIN (NovoLOG) PER UNIT SC SCH ×4 (08:31→21:00)
[2016-05-01] MEDS: POTASSIUM CHLORIDE 10 MEQ SR TABLET PO SCH ×3 (08:32→21:15)
[2016-05-01] MEDS: FERROUS SULFATE 325MG TAB PO SCH (08:33)
[2016-05-01] MEDS: ASPIRIN 81 MG ENTERIC TAB PO SCH (08:33)
[2016-05-01] MEDS: DOCUSATE SODIUM 100 MG CAP PO PRN ×2 (08:33→21:22)
[2016-05-01] MEDS: ATORVASTATIN 20 MG TAB PO SCH (08:33)
[2016-05-01] MEDS: TORSEMIDE (DEMADEX) 50 MG PER 1/2 TAB PO SCH ×2 (08:33→16:34)
[2016-05-01] MEDS: SPIRONOLACTONE 25 MG TAB PO SCH ×2 (08:33→16:34)
[2016-05-01] MEDS: ASCORBIC ACID 500 MG TAB PO SCH ×2 (08:33→17:33)
[2016-05-01] MEDS: MULTIVITAMINS/MINERALS THERAP 1 TAB PO SCH (08:33)
[2016-05-01] MEDS: DABIGATRAN ETEXILATE 75 MG CAP (PRADAXA) PO SCH ×2 (08:34→21:15)
[2016-05-01] MEDS: LORATADINE 10 MG TAB PO PRN (08:34)
[2016-05-01] MEDS: METOPROLOL TART 12.5 MG PER 1/2 TAB PO SCH ×2 (08:34→21:15)
[2016-05-01] MEDS: PANTOPRAZOLE 40MG TAB (PROTONIX) PO SCH (08:34)
[2016-05-01] MEDS: metOLazone 2.5 MG TAB PO SCH (08:34)
[2016-05-01] MEDS: LIDOCAINE 5% (LIDODERM) PATCH TD SCH (08:35)
[2016-05-01] MEDS: NYSTATIN 100,000 UNITS/GM TOPICAL PWD 15 GM TOP SCH ×2 (08:35→21:16)
--- NOTE | 2016-05-01 10:40 | IPN ---
DATE: 04/29/2016 SUBJECTIVE: Patient was seen and examined at the bedside today. She was sitting on the sofa. She still complains of bilateral lower extremity edema and weeping blisters, especially from the left leg. There are no labs available today. REVIEW OF SYSTEMS: Patient denies any fever, chills, rigors, headache, nausea, vomiting, or chest pain. She does report baseline shortness of breath, and she reports persistently lower extremity edema and weeping of blister sites from the left leg. The rest of the review of systems is negative. OBJECTIVE: VITAL SIGNS: Temperature is 98 degrees Fahrenheit, blood pressure is 118/62, pulse is 86, respiratory rate of 18, saturating 94% on nasal cannula at three liters. Intake and output: Urine output recorded as 2.8 liters yesterday and 1900 mL so far today since overnight. Weight on the bed scale is 166.6 kg. GENERAL: Patient is awake, alert, and oriented times three, sitting on the sofa in no apparent distress. HEAD AND NECK EXAM: Extraocular muscles are intact. Pupils equally round and reactive to light. Neck is supple. There is no jugular venous distention (JVD). CARDIOVASCULAR: S1, S2 regular rate. No murmur, rub, or gallop. RESPIRATORY: Patient is wearing nasal cannula. Chest is clear to auscultation bilaterally. No rales or rhonchi. ABDOMEN: Soft, obese. Positive bowel sounds. Positive edema of the abdominal wall. EXTREMITIES: Patient has bilateral lower extremity edema with erythema. Edema is pitting all the way up to the thighs. There are blisters on the left leg. CENTRAL NERVOUS SYSTEM: No focal neurological deficit. Power is 5/5 in all extremities. SKIN: Positive erythema at the bilateral lower extremities, and she also has fungal rash in the skin folds of the abdomen. LAB REVIEW: CBC showed a WBC of 10.5, hemoglobin 8.5, platelets of 242. BMP showed creatinine of 1.35, but this BMP was from yesterday. There are no labs available today. CURRENT MEDICATIONS: Patient's current medications were all reviewed by me. There are no changes in the medication apart from the addition of metolazone 2.5 mg by mouth daily in the regimen. ASSESSMENT: 66-year-old female with past medical history of morbid obesity, chronic systolic and diastolic congestive heart failure. Nephrology service is following the patient for management of fluid overload. PLAN: 1. [id number] congestive heart failure. Patient was having good urine output, but despite a urine output of around 3-4 liters every day patient's weight is still the same and her lower extremity edema is not improving. I am going to continue torsemide 100 mg by mouth in the morning, 50 mg in the evening with Aldactone 25 mg by mouth twice a day, but I am going to add a low-dose of metolazone 2.5 mg by mouth daily. 2. Acute kidney injury superimposed on chronic kidney disease. Patient's acute kidney injury (SANTINO) is most likely secondary to cardiorenal syndrome. Patient's creatinine has been stable with the current dose of diuretics. Continue the aggressive diuresis at this time. 3. Anemia secondary to iron deficiency. Patient will get a dose of Aranesp 300 mcg subcutaneous tomorrow. She was also given Venofer in the last week. 4. Lower extremity edema and cellulitis. Patient is status post IV antibiotic for the lower extremity cellulitis and edema. She has blisters on the leg. Management is as per wound care nursing. Patient would benefit from wrapping of the bilateral lower extremities.
[2016-05-01] MEDS: FLUCONAZOLE 100 MG TAB PO SCH (12:20)
[2016-05-01 14:00] VITALS: BP 111/59
--- NOTE | 2016-05-01 19:35 | IPN ---
DATE: 04/30/2016 NOTE: Please disregard my previously dictated note for today as I was interrupted while dictating, and record this note for 04/30/2016. SUBJECTIVE: The patient was seen and examined at the bedside today. She was sitting on the sofa. She reports that she made a lot of urine yesterday and she feels a little bit weak. Her urine output was around five liters yesterday. REVIEW OF SYSTEMS: The patient denies any fevers, chills, rigors, headaches, nausea, vomiting. She does report some shortness of breath which is baseline for her. She denies any diarrhea, pain abdomen, constipation. She does report lower extremity edema, and she is still complaining of blisters in the left leg which are leaking some fluid. Rest of review of systems is negative. OBJECTIVE: VITAL SIGNS: Temperature is 97 degrees Fahrenheit. Blood pressure is 110/55, pulse is 97, respiratory rate of 18, saturating 95% on nasal cannula. INTAKE AND OUTPUT: Urine output recorded was five liters yesterday, 1.7 liters so far today. Weight in the bed scale is 164 kg. PHYSICAL EXAMINATION: GENERAL: The patient is awake, alert, and oriented times three. Sitting on the sofa in no apparent distress. HEAD/NECK: Extraocular muscles intact. Pupils equal, round, and reactive to light. Neck is supple. There is no jugular venous distention (JVD). CARDIOVASCULAR: S1, S2, regular rate. No murmur, rub, or gallop. RESPIRATORY: Chest is clear to auscultation bilaterally. Bilateral equal air entry. No rales or rhonchi. ABDOMEN: Soft, obese, protuberant. Positive abdominal wall edema. EXTREMITIES: The patient has erythema of the bilateral lower extremities. She has 2+ pitting edema of the extremities, and the left leg has some blisters which are leaking some fluid as well. CENTRAL NERVOUS SYSTEM (CLINIC OFFICE ASSISTANT): No focal neurological deficit. Power is 5/5 in all extremities. PSYCHIATRIC: Normal mood and affect. SKIN: Positive erythema of the lower extremities with chronic venous stasis changes and blisters of the left leg. LABORATORY DATA: CBC is from 04/28. BMP done today showed sodium 138, potassium 3.7, chloride 97, bicarbonate 32, BUN 44, creatinine 1.22, calcium 8.6, phosphorus 4, albumin 3.2. CURRENT MEDICATIONS: The patient's medications were all reviewed by me, and pertinent change in the medication includes torsemide 50 mg by mouth twice a day and metolazone 2.5 mg by mouth daily. ASSESSMENT: A 66-year-old female with past medical history of morbid obesity, chronic systolic and diastolic congestive heart failure. Nephrology service following the patient for management of acute kidney injury and fluid overload. PLAN: 1. Acute kidney injury superimposed on chronic kidney disease. The patient's renal function is stable. Her creatinine fluctuates between 1.2 and 1.3. Continue the aggressive diuresis at this time. 2. Acute on chronic congestive heart failure. The patient was diuresing well, but her weight was not going down, and leg edema is still the same, so I added metolazone 2.5 mg by mouth daily, and I have decreased her dose of torsemide to 50 mg by mouth twice a day. The patient made five liters of urine yesterday. Continue the current dose of diuretics at this time. 3. Anemia and iron deficiency. The patient got intravenous (IV) iron last week. I would also give her a dose of Aranesp 300 mcg subcutaneously today. 4. Lower extremity edema and cellulitis. Continue the aggressive diuretics at this time. The patient would benefit from compression dressing of the bilateral lower extremities.
[2016-05-01] MEDS: **NOTE PATIENT COMMENT** MISC XX SCH (21:00)
[2016-05-01 22:00] VITALS: BP 119/59
[2016-05-01] MEDS: CEPACOL LOZENGE PO PRN (23:45)
[2016-05-02 06:00] VITALS: BP 99/51
[2016-05-02] MEDS: BREO ELLIPTA INH SCH (07:57)
[2016-05-02] MEDS: TIOTROPIUM INHALER/CAPSULE (SPIRIVA) INH SCH (07:57)
[2016-05-02] MEDS: IPRATROPIUM 0.5MG/ALBUTEROL 2.5MG INH SOL UD 3ML (DUONEB)(J7620) NEB SCH ×4 (07:58→20:27)
[2016-05-02] MEDS: ASCORBIC ACID 500 MG TAB PO SCH ×2 (08:05→17:06)
[2016-05-02] MEDS: HumaLOG INSULIN (NovoLOG) PER UNIT SC SCH ×4 (08:05→20:14)
--- NOTE | 2016-05-02 08:14 | IPN ---
DATE: 05/01/2016 SUBJECTIVE: Patient was seen and examined at the bedside today. She still reports fluid leakage from both legs. Otherwise, she had a very good urine output yesterday. Urine output was around 5.7 liters and her weight is down as compared with yesterday and kidney number is stable. REVIEW OF SYSTEMS: Patient denies any fevers, chills, rigors, headache, nausea, vomiting, chest pain, shortness of breath, pain in abdomen, constipation or diarrhea. She reports persistent lower extremity edema and leakage of fluid from the left leg blisters. OBJECTIVE: Vital signs: Temperature is 97.2 degrees Fahrenheit, blood pressure is 115/70, pulse is 78, respiratory rate of 18, saturating 92% on nasal cannula at 3 liters per minute. Intake and output: Urine output recorded was 5.7 liters yesterday, 2.4 liters so far today since overnight. Weight on the bed scale is 160.3 kg. It was 164 kg yesterday. PHYSICAL EXAMINATION: General: Patient is awake, alert, oriented times three, sitting on the sofa in no apparent distress. Head and neck exam: Extraocular muscles intact. Pupils equal, round and reactive to light. Neck is supple. There is no jugular venous distention (JVD). Cardiovascular: S1, S2, regular rate. No murmur, rub or gallop. Respiratory: Chest is clear to auscultation bilaterally. Bilateral equal air entry. Patient is breathing nasal cannula at 3 liters per minute. Abdomen: Soft, obese, positive bowel sounds, positive abdominal wall edema. Extremities: Patient has bilateral lower extremity edema and erythema. Edema is spreading up to the thighs and it is almost 2+ and there are weeping blisters on the left leg. Central nervous system: No focal neurological deficit. Power is 5/5 in all extremities. LAB REVIEW: CBC showed WBC of 8.2, hemoglobin 8.1, platelet 220. BMP showed sodium 140, potassium 0.7, chloride 97, bicarbonate 37. BUN 45, creatinine 1.22. Calcium 8.8. CURRENT MEDICATIONS: Patient's medications were all reviewed by me. Pertinent change in the medications include torsemide 50 mg by mouth twice daily, spironolactone continues to be 25 mg twice daily and she has been started on metolazone 2.5 mg by mouth daily. ASSESSMENT: 66-year-old female with past medical history of morbid obesity, chronic systolic and diastolic congestive heart failure. Nephrology service following the patient for management of fluid overload. PLAN: 1. Acute on chronic congestive heart failure. Patient is having very good urine output with the current regimen. Since she is responding well to the combination of torsemide and metolazone, I decreased the dose of torsemide to 50 mg by mouth twice daily. Continue the current regimen at this time. Continue 24 hour intake and output and daily weights. 2. Metabolic alkalosis. Metabolic alkalosis is secondary to aggressive diuresis. I have decreased the torsemide dose to 50 mg by mouth today and I will follow the labs tomorrow. Continue the current regimen at this time. 3. Anemia and chronic kidney disease. Patient got a dose of Aranesp yesterday. Hopefully hemoglobin is going to respond to this. She does not need any blood transfusion at this time. 4. Lower extremity edema, cellulitis. Patient is status post IV antibiotics for lower extremity edema. Continue aggressive diuresis. Rest of the management is as per primary team.
[2016-05-02 08:30] VITALS: BP 117/58
[2016-05-02] MEDS: FLUCONAZOLE 100 MG TAB PO SCH (09:00)
[2016-05-02] MEDS: ASPIRIN 81 MG ENTERIC TAB PO SCH (09:51)
[2016-05-02] MEDS: DABIGATRAN ETEXILATE 75 MG CAP (PRADAXA) PO SCH ×2 (09:51→20:21)
[2016-05-02] MEDS: POTASSIUM CHLORIDE 10 MEQ SR TABLET PO SCH ×3 (09:52→20:19)
[2016-05-02] MEDS: ATORVASTATIN 20 MG TAB PO SCH (09:52)
[2016-05-02] MEDS: MULTIVITAMINS/MINERALS THERAP 1 TAB PO SCH (09:52)
[2016-05-02] MEDS: metOLazone 2.5 MG TAB PO SCH (09:53)
[2016-05-02] MEDS: DOCUSATE SODIUM 100 MG CAP PO PRN (09:53)
[2016-05-02] MEDS: SPIRONOLACTONE 25 MG TAB PO SCH ×2 (09:53→17:06)
[2016-05-02] MEDS: FERROUS SULFATE 325MG TAB PO SCH (09:53)
[2016-05-02] MEDS: TORSEMIDE (DEMADEX) 50 MG PER 1/2 TAB PO SCH ×2 (09:54→17:06)
[2016-05-02] MEDS: METOPROLOL TART 12.5 MG PER 1/2 TAB PO SCH ×2 (09:54→20:21)
[2016-05-02] MEDS: PERCOCET 5MG/325MG TAB PO PRN ×2 (09:54→20:24)
[2016-05-02] MEDS: LORATADINE 10 MG TAB PO PRN (09:55)
[2016-05-02] MEDS: PANTOPRAZOLE 40MG TAB (PROTONIX) PO SCH (09:55)
[2016-05-02] MEDS: NYSTATIN 100,000 UNITS/GM TOPICAL PWD 15 GM TOP SCH ×2 (09:56→20:18)
[2016-05-02 11:32] LABS: ALBUMIN 3.3 GM/DL (3.2-5.2); CALCIUM LEVEL 8.7 MG/DL (8.8-10.2); CREATININE FOR GFR 1.34 MG/DL (0.55-1.02); GLOMERULAR FILTRATION RATE 42.1 (>45); PHOSPHORUS LEVEL 3.4 MG/DL (2.5-4.9); POTASSIUM SERUM 3.8 MEQ/L (3.5-5.1)
[2016-05-02] MEDS: MIRALAX *UNIT DOSE* 17GM PACKET PO PRN (11:32)
[2016-05-02] MEDS: LIDOCAINE 5% (LIDODERM) PATCH TD SCH (11:32)
[2016-05-02 14:00] VITALS: BP 118/66
[2016-05-02] MEDS: CEPACOL LOZENGE PO PRN (14:10)
[2016-05-02] MEDS: **NOTE PATIENT COMMENT** MISC XX SCH (20:19)
[2016-05-03 07:00] VITALS: BP 109/55
[2016-05-03] MEDS: HumaLOG INSULIN (NovoLOG) PER UNIT SC SCH ×4 (07:53→19:45)
[2016-05-03] MEDS: IPRATROPIUM 0.5MG/ALBUTEROL 2.5MG INH SOL UD 3ML (DUONEB)(J7620) NEB SCH ×4 (08:00→20:23)
[2016-05-03] MEDS: TIOTROPIUM INHALER/CAPSULE (SPIRIVA) INH SCH (08:14)
[2016-05-03] MEDS: BREO ELLIPTA INH SCH (08:14)
[2016-05-03] MEDS: metOLazone 2.5 MG TAB PO SCH (08:53)
[2016-05-03] MEDS: MULTIVITAMINS/MINERALS THERAP 1 TAB PO SCH (08:53)
[2016-05-03] MEDS: ASPIRIN 81 MG ENTERIC TAB PO SCH (08:53)
[2016-05-03] MEDS: LORATADINE 10 MG TAB PO PRN (08:53)
[2016-05-03] MEDS: FLUCONAZOLE 100 MG TAB PO SCH (08:53)
[2016-05-03] MEDS: TORSEMIDE (DEMADEX) 50 MG PER 1/2 TAB PO SCH ×2 (08:54→16:08)
[2016-05-03] MEDS: PANTOPRAZOLE 40MG TAB (PROTONIX) PO SCH (08:54)
[2016-05-03] MEDS: ASCORBIC ACID 500 MG TAB PO SCH ×2 (08:54→17:39)
[2016-05-03] MEDS: FERROUS SULFATE 325MG TAB PO SCH (08:54)
[2016-05-03] MEDS: ATORVASTATIN 20 MG TAB PO SCH (08:54)
[2016-05-03] MEDS: SPIRONOLACTONE 25 MG TAB PO SCH ×2 (08:54→16:08)
[2016-05-03] MEDS: METOPROLOL TART 12.5 MG PER 1/2 TAB PO SCH ×2 (08:54→19:39)
[2016-05-03] MEDS: PERCOCET 5MG/325MG TAB PO PRN ×2 (08:55→18:08)
[2016-05-03] MEDS: POTASSIUM CHLORIDE 10 MEQ SR TABLET PO SCH ×3 (08:55→19:38)
[2016-05-03] MEDS: LIDOCAINE 5% (LIDODERM) PATCH TD SCH (08:55)
[2016-05-03] MEDS: NYSTATIN 100,000 UNITS/GM TOPICAL PWD 15 GM TOP SCH ×2 (08:59→19:42)
[2016-05-03] MEDS: DABIGATRAN ETEXILATE 75 MG CAP (PRADAXA) PO SCH ×2 (09:01→19:39)
[2016-05-03] MEDS: DOCUSATE SODIUM 100 MG CAP PO PRN ×2 (09:01→19:44)
[2016-05-03] MEDS ORDERED: DARB30SYRN SC (10:21)
[2016-05-03] MEDS: **NOTE PATIENT COMMENT** MISC XX SCH (19:43)
[2016-05-03 20:23] VITALS: O2SAT 90
[2016-05-04 07:00] VITALS: BP 112/55
[2016-05-04 07:22] LABS: MEAN CORPUSCULAR HEMOGLOBIN 30.7 pg (27.0-33.0); MEAN CORPUSCULAR HGB CONC 29.4 g/dl (32.0-36.5); MEAN CORPUSCULAR VOLUME 104.4 fl (80.0-96.0); RED CELL DISTRIBUTION WIDTH 19.9 % (11.5-14.5); WHITE BLOOD COUNT 8.5 K/mm3 (4.0-10.0)
[2016-05-04 07:29] LABS: CREATININE FOR GFR 1.42 MG/DL (0.55-1.02); GLOMERULAR FILTRATION RATE 39.4 (>45); POTASSIUM SERUM 3.8 MEQ/L (3.5-5.1)
[2016-05-04] MEDS: BREO ELLIPTA INH SCH (07:31)
[2016-05-04] MEDS: TIOTROPIUM INHALER/CAPSULE (SPIRIVA) INH SCH (07:31)
[2016-05-04] MEDS: IPRATROPIUM 0.5MG/ALBUTEROL 2.5MG INH SOL UD 3ML (DUONEB)(J7620) NEB SCH ×4 (07:31→21:00)
[2016-05-04] MEDS: HumaLOG INSULIN (NovoLOG) PER UNIT SC SCH ×4 (07:36→21:00)
[2016-05-04] MEDS: LIDOCAINE 5% (LIDODERM) PATCH TD SCH (08:02)
[2016-05-04] MEDS: DABIGATRAN ETEXILATE 75 MG CAP (PRADAXA) PO SCH ×2 (08:02→21:14)
[2016-05-04] MEDS: FERROUS SULFATE 325MG TAB PO SCH (08:02)
[2016-05-04] MEDS: DOCUSATE SODIUM 100 MG CAP PO PRN (08:03)
[2016-05-04] MEDS: ASPIRIN 81 MG ENTERIC TAB PO SCH (08:03)
[2016-05-04] MEDS: ASCORBIC ACID 500 MG TAB PO SCH ×2 (08:03→16:55)
[2016-05-04] MEDS: FLUCONAZOLE 100 MG TAB PO SCH (08:03)
[2016-05-04] MEDS: metOLazone 2.5 MG TAB PO SCH (08:03)
[2016-05-04] MEDS: ATORVASTATIN 20 MG TAB PO SCH (08:03)
[2016-05-04] MEDS: PANTOPRAZOLE 40MG TAB (PROTONIX) PO SCH (08:03)
[2016-05-04] MEDS: TORSEMIDE (DEMADEX) 50 MG PER 1/2 TAB PO SCH ×2 (08:03→16:09)
[2016-05-04] MEDS: LORATADINE 10 MG TAB PO PRN (08:03)
[2016-05-04] MEDS: SPIRONOLACTONE 25 MG TAB PO SCH ×2 (08:03→16:09)
[2016-05-04] MEDS: MULTIVITAMINS/MINERALS THERAP 1 TAB PO SCH (08:03)
[2016-05-04] MEDS: POTASSIUM CHLORIDE 10 MEQ SR TABLET PO SCH ×3 (08:04→21:13)
[2016-05-04] MEDS: PERCOCET 5MG/325MG TAB PO PRN ×2 (08:04→16:55)
[2016-05-04] MEDS: METOPROLOL TART 12.5 MG PER 1/2 TAB PO SCH ×2 (08:04→21:17)
[2016-05-04] MEDS: NYSTATIN 100,000 UNITS/GM TOPICAL PWD 15 GM TOP SCH ×2 (08:08→21:19)
--- NOTE | 2016-05-04 12:36 | IPN ---
DATE: 05/04/2016 SUBJECTIVE: Patient was seen and examined at the bedside today in the morning. The patient is getting an IV line because her hemoglobin dropped and she is going to get a blood transfusion. She continues to have good urine output. Her renal function is stable. REVIEW OF SYSTEMS: Patient denies any fevers, chills, rigors, headache, or chest pain. She does have a baseline shortness of breath. She denies any pain in abdomen, constipation or diarrhea. She reports persistent lower extremity edema and oozing of fluid from the left leg. The rest of review of systems is negative. OBJECTIVE: Vital signs: Temperature is 98 degrees Fahrenheit, blood pressure is 112/55, pulse is 81, respiratory rate of 18, saturating 95% on nasal cannula at 2 liters per minute. Intake and output: Urine output recorded as 4.9 liters yesterday. Weight on the bed scale is 160.2 kg. PHYSICAL EXAMINATION: General: Patient is awake, alert, oriented times three, laying in bed, in no apparent distress. Head and Neck Exam: Extraocular muscles intact. Pupils equal, round and reactive to light. Neck is supple. There is no jugular venous distention (JVD). Cardiovascular: S1, S2, regular rate. No murmur, rub or gallop. Respiratory: Chest is clear to auscultation bilaterally. Bilateral equal air entry. Abdomen: Soft, obese, positive bowel sounds, positive abdominal wall edema. Extremities: Patient has bilateral lower extremity edema and erythema with blisters on the left leg and edema is about 2+ and it is all the way up to the knees. Central Nervous System: No focal neurological deficit. Power is 5/5 in all extremities. LAB REVIEW: CBC showed WBC of 8.5, hemoglobin 7.2, platelets 230. BMP showed sodium 139, potassium 3.8, chloride 95, bicarbonate 36, BUN 55, creatinine 1.4, calcium 9. CURRENT MEDICATIONS: Patient's medications were all reviewed by me. There is no change in the medications at this time. ASSESSMENT: 66-year-old female with past medical history of morbid obesity, chronic systolic and diastolic congestive heart failure. Nephrology service following the patient for management of fluid overload. PLAN: 1. Anemia and chronic kidney disease. Patient's hemoglobin has dropped to 7.2. She is going to get two units of packed red blood cell (RBC) transfusion today. She continues to get Aranesp 300 mcg subcutaneous every Sunday. When patient is discharged, she can be switched to Procrit 20,000 units subcutaneous every 2 weeks. 2. Acute on chronic congestive heart failure. Patient is having good response to torsemide 50 mg twice a day, metolazone 2.5 mg daily and spironolactone 25 mg by mouth twice a day. Continue current dose. Patient is having around 5-6 liters of urine every day and she is slowly losing all the fluid weight. 3. Metabolic alkalosis. Metabolic alkalosis is secondary to aggressive diuresis and chronic COPD. Her bicarbonate level is around 34 to 36 at this time. I will continue the current dose of diuretics. If bicarbonate level gets worse, then diuretic dose will need to be decreased.
[2016-05-04 13:45] VITALS: BP 92/60
--- NOTE | 2016-05-04 14:17 | IPNPDOC ---
Assessment/Plan Date Seen The patient was seen on 05/04/16. Problems Problems: (1) Chronic anemia Status: Chronic Problem Text: normocytic received venofer, prbc and darbapoietin will transfuse 2 units 05/04/16 (2) Anasarca Status: Acute Response to Treatment: Improving Problem Text: due to diastolic congestive heart failure. on multiple diuretics. (3) Cellulitis Status: Acute Problem Text: on cefepime currently was on ceftriaxone before. (4) Acute on chronic diastolic CHF (congestive heart failure) Status: Acute Problem Text: continue diuresis , daily weights. on lasix, diamox and spironolactone. (5) Acute and chronic respiratory failure with hypoxia Status: Acute Problem Text: multifactorial due to CAP and diastolic chf exacerbation and fluid slowly improving with diuresis and antibiotics. (6) CAP (community acquired pneumonia) Status: Resolved Problem Text: finished course on ceftriaxone. (7) Constipation Status: Resolved Problem Text: on bowel regimen (8) JANE (obstructive sleep apnea) Status: Chronic (9) Morbid obesity Status: Chronic (10) Diabetes Status: Chronic (11) Hypertension Status: Chronic (12) COPD (chronic obstructive pulmonary disease) Status: Chronic Problem Text: continue home meds. (13) CAD (coronary artery disease) Status: Chronic (14) Hyperlipidemia Status: Chronic (15) Mitral stenosis and incompetence Status: Chronic (16) Pulmonary hypertension Status: Chronic (17) Afib Status: Chronic Problem Text: on pradaxa (18) Allergy Status: Chronic Problem Text: continue loratidine (19) Hematuria Status: Resolved Problem Text: possibly from trama from [place] will monitor if continues may have to hold anticoagulants temporarily. (20) Chronic respiratory failure with hypoxia Status: Chronic Problem Text: now at baseline level of oxygen by nasal canula (21) SANTINO (acute kidney injury) Status: Acute Problem Text: due to aggressive diuresis will continue to monitor. diuretic dosage decreased today Plan / VTE VTE Prophylaxis Ordered?: Yes Plan / Urinary Catheter Reason for insertion/continuin: Other-document below Subjective Review of Systems CC/HPI The patient is a 66-year-old female admitted with a reason for visit of Acute Respiratory Distress. General: Reports: Fatigue, Malaise Constitutional: Reports: Weakness Objective Physical Examination General Exam: Positive: Alert, No Acute Distress Eye Exam: Positive: Conjunctiva & lids normal, EOMI, PERRLA, Negative: Sclera icteric ENT Exam: Positive: Atraumatic, Mucous membr. moist/pink, Pharynx Normal Neck Exam: Positive: Supple, Negative: JVD, thyromegaly Chest Exam: Positive: Diminished Heart Exam: Positive: Normal S1, Normal S2, Rate Normal, Regular Rhythm Abdomen Exam: Positive: Normal bowel sounds, Soft, Negative: Hepatospenomegaly, Tenderness Extremity Exam: Positive: Edema, Other (redness and inflammation), Swelling, Tenderness Vital Signs/I&O Vital Signs Date Time Temp Pulse Resp B/P Pulse Ox O2 Delivery O2 Flow Rate FiO2 05/04/16 09:08 18 05/04/16 08:04 81 112/55 05/04/16 07:00 98.0 95 Nasal Cannula 2.0 I&O- Last 24 Hours up to 6 AM 05/04/16 05:59 Intake Total 960 ml Output Total 3800 ml Balance -2840 ml Laboratory Data Labs 24H Laboratory Tests 2 05/03/16 16:38: Bedside Glucose (Misc Panel) 153H 05/03/16 18:58: Bedside Glucose (Misc Panel) 363H 05/03/16 19:07: Bedside Glucose (Misc Panel) 179H 05/04/16 06:46: Bedside Glucose (Misc Panel) 139H 05/04/16 06:59: Anion Gap 8, Blood Urea Nitrogen 55H, Creatinine 1.42H, Sodium Level 139, Potassium Level 3.8, Chloride Level 95L, Carbon Dioxide Level 36H, Calcium Level 9.0, Glomerular Filtration Rate 39.4L 05/04/16 11:46: Bedside Glucose (Misc Panel) 218H CBC/BMP Laboratory Tests 05/04/16 06:59 Calcium Level 9.0, Red Blood Count 2.34 L, Mean Corpuscular Volume 104.4 H, Mean Corpuscular Hemoglobin 30.7, Mean Corpuscular Hemoglobin Concent 29.4 L, Red Cell Distribution Width 19.9 H FSBS Laboratory Tests Test 05/03/16 16:38 05/03/16 18:58 05/03/16 19:07 05/04/16 06:46 Range/Units Bedside Glucose (Misc Panel) 153 363 179 139 80-115 MG/DL Test 05/04/16 11:46 Range/Units Bedside Glucose (Misc Panel) 218 80-115 MG/DL SANA MAYER DO May 04, 2016 14:17
[2016-05-04] MEDS: **NOTE PATIENT COMMENT** MISC XX SCH (21:00)
[2016-05-04 22:00] VITALS: BP 95/54
[2016-05-05] MEDS: PERCOCET 5MG/325MG TAB PO PRN ×2 (03:06→21:30)
[2016-05-05 06:00] VITALS: BP 96/51
[2016-05-05 07:05] LABS: MEAN CORPUSCULAR HEMOGLOBIN 30.3 pg (27.0-33.0); MEAN CORPUSCULAR HGB CONC 29.6 g/dl (32.0-36.5); MEAN CORPUSCULAR VOLUME 102.3 fl (80.0-96.0); RED CELL DISTRIBUTION WIDTH 21.6 % (11.5-14.5); WHITE BLOOD COUNT 9.9 K/mm3 (4.0-10.0)
[2016-05-05] MEDS: IPRATROPIUM 0.5MG/ALBUTEROL 2.5MG INH SOL UD 3ML (DUONEB)(J7620) NEB SCH ×4 (07:09→20:00)
[2016-05-05] MEDS: TIOTROPIUM INHALER/CAPSULE (SPIRIVA) INH SCH (07:09)
[2016-05-05] MEDS: BREO ELLIPTA INH SCH (07:09)
[2016-05-05] MEDS ORDERED: PROC20004 IV (07:52)
[2016-05-05] MEDS: METOPROLOL TART 12.5 MG PER 1/2 TAB PO SCH ×2 (09:00→20:26)
[2016-05-05] MEDS: HumaLOG INSULIN (NovoLOG) PER UNIT SC SCH ×5 (09:10→21:00)
[2016-05-05] MEDS: ASPIRIN 81 MG ENTERIC TAB PO SCH (09:11)
[2016-05-05] MEDS: DABIGATRAN ETEXILATE 75 MG CAP (PRADAXA) PO SCH ×2 (09:11→20:29)
[2016-05-05] MEDS: LORATADINE 10 MG TAB PO PRN (09:11)
[2016-05-05] MEDS: FERROUS SULFATE 325MG TAB PO SCH (09:12)
[2016-05-05] MEDS: ATORVASTATIN 20 MG TAB PO SCH (09:12)
[2016-05-05] MEDS: TORSEMIDE (DEMADEX) 50 MG PER 1/2 TAB PO SCH ×2 (09:12→17:16)
[2016-05-05] MEDS: PANTOPRAZOLE 40MG TAB (PROTONIX) PO SCH (09:12)
[2016-05-05] MEDS: MULTIVITAMINS/MINERALS THERAP 1 TAB PO SCH (09:13)
[2016-05-05] MEDS: ASCORBIC ACID 500 MG TAB PO SCH ×2 (09:13→17:16)
[2016-05-05] MEDS: DOCUSATE SODIUM 100 MG CAP PO PRN (09:13)
[2016-05-05] MEDS: metOLazone 2.5 MG TAB PO SCH (09:13)
[2016-05-05] MEDS: SPIRONOLACTONE 25 MG TAB PO SCH ×2 (09:13→17:16)
[2016-05-05] MEDS: POTASSIUM CHLORIDE 10 MEQ SR TABLET PO SCH ×3 (09:13→21:00)
[2016-05-05] MEDS: FLUCONAZOLE 100 MG TAB PO SCH (09:14)
[2016-05-05] MEDS: LIDOCAINE 5% (LIDODERM) PATCH TD SCH (09:14)
[2016-05-05] MEDS: NYSTATIN 100,000 UNITS/GM TOPICAL PWD 15 GM TOP SCH ×2 (09:17→21:00)
[2016-05-05] MEDS: ACETAMINOPHEN 500 MG TAB PO PRN (11:47)
[2016-05-05] MEDS: guaiFENesin ER 600 MG TAB PO PRN (11:47)
[2016-05-05 14:00] VITALS: BP 99/54
--- NOTE | 2016-05-05 19:35 | IPNPDOC ---
Assessment/Plan Date Seen The patient was seen on 05/05/16. Problems Problems: (1) Chronic anemia Status: Chronic Problem Text: normocytic received venofer, prbc and darbapoietin transfuse 2 units 05/04/16 will check repeat H&H and occult blood (2) Anasarca Status: Acute Response to Treatment: Improving Problem Text: due to diastolic congestive heart failure. on multiple diuretics. (3) Cellulitis Status: Acute Problem Text: on cefepime currently was on ceftriaxone before. (4) Acute on chronic diastolic CHF (congestive heart failure) Status: Acute Problem Text: continue diuresis , daily weights. on lasix, diamox and spironolactone. (5) Acute and chronic respiratory failure with hypoxia Status: Acute Problem Text: multifactorial due to CAP and diastolic chf exacerbation and fluid slowly improving with diuresis and antibiotics. (6) CAP (community acquired pneumonia) Status: Resolved Problem Text: finished course on ceftriaxone. (7) Constipation Status: Resolved Problem Text: on bowel regimen (8) JANE (obstructive sleep apnea) Status: Chronic (9) Morbid obesity Status: Chronic (10) Diabetes Status: Chronic (11) Hypertension Status: Chronic (12) COPD (chronic obstructive pulmonary disease) Status: Chronic Problem Text: continue home meds. (13) CAD (coronary artery disease) Status: Chronic (14) Hyperlipidemia Status: Chronic (15) Mitral stenosis and incompetence Status: Chronic (16) Pulmonary hypertension Status: Chronic (17) Afib Status: Chronic Problem Text: on pradaxa (18) Allergy Status: Chronic Problem Text: continue loratidine (19) Hematuria Status: Resolved Problem Text: possibly from trama from [place] will monitor if continues may have to hold anticoagulants temporarily. (20) Chronic respiratory failure with hypoxia Status: Chronic Problem Text: now at baseline level of oxygen by nasal canula (21) SANTINO (acute kidney injury) Status: Acute Problem Text: due to aggressive diuresis will continue to monitor. diuretic dosage decreased today Plan / VTE VTE Prophylaxis Ordered?: Yes Plan / Urinary Catheter Reason for insertion/continuin: Other-document below Subjective Review of Systems CC/HPI The patient is a 66-year-old female admitted with a reason for visit of Acute Respiratory Distress. Constitutional: Denies: Chills, Fever, Malaise, Night Sweats, Weakness Pulmonary: Denies: Cough, Dyspnea Objective Physical Examination General Exam: Positive: Alert, No Acute Distress Eye Exam: Positive: Conjunctiva & lids normal, EOMI, PERRLA, Negative: Sclera icteric ENT Exam: Positive: Atraumatic, Mucous membr. moist/pink, Pharynx Normal Neck Exam: Positive: Supple, Negative: JVD, thyromegaly Chest Exam: Positive: Diminished Heart Exam: Positive: Normal S1, Normal S2, Rate Normal, Regular Rhythm Abdomen Exam: Positive: Normal bowel sounds, Soft, Negative: Hepatospenomegaly, Tenderness Extremity Exam: Positive: Edema, Other (redness and inflammation), Swelling, Tenderness Vital Signs/I&O Vital Signs Date Time Temp Pulse Resp B/P Pulse Ox O2 Delivery O2 Flow Rate FiO2 05/05/16 14:00 98.0 103 17 99/54 92 Nasal Cannula 2.0 I&O- Last 24 Hours up to 6 AM 05/05/16 05:59 Intake Total 1464 ml Output Total 1600 ml Balance -136 ml Laboratory Data Labs 24H Laboratory Tests 2 05/04/16 20:33: Bedside Glucose (Misc Panel) 168H 05/05/16 07:03: Bedside Glucose (Misc Panel) 174H 05/05/16 12:47: Bedside Glucose (Misc Panel) 141H 05/05/16 16:47: Bedside Glucose (Misc Panel) 199H CBC/BMP Laboratory Tests 05/05/16 06:38 Red Blood Count 2.69 L, Mean Corpuscular Volume 102.3 H, Mean Corpuscular Hemoglobin 30.3, Mean Corpuscular Hemoglobin Concent 29.6 L, Red Cell Distribution Width 21.6 H 05/05/16 16:59 FSBS Laboratory Tests Test 05/04/16 20:33 05/05/16 07:03 05/05/16 12:47 05/05/16 16:47 Range/Units Bedside Glucose (Misc Panel) 168 174 141 199 80-115 MG/DL Microbiology Microbiology 05/05/16 Stool Occult Blood (TESS) - Final, Complete SANA MAYER DO May 05, 2016 19:34
--- NOTE | 2016-05-05 20:20 | IPN ---
DATE: 05/05/2016 SUBJECTIVE: The patient was seen and examined at the bedside today in the morning. She was given two units of packed red blood cells transfusion yesterday. Her hemoglobin is better. Her creatinine is slightly higher than yesterday, but she is having good urine output and her leg edema is getting better. REVIEW OF SYSTEMS: The patient denies any fever, chills, rigors, headache, nausea, vomiting, chest pain. She does have mild baseline shortness of breath requiring oxygen. She reports her leg edema is getting better, but she persistently complains of fluid leakage from the left leg. The rest of the review of systems is negative. OBJECTIVE: VITAL SIGNS: Temperature is 97.9 degrees Fahrenheit, blood pressure is 96/51, pulse is 90, respiratory rate of 14, saturating 91% on nasal cannula. INTAKE/OUTPUT: Urine output is not recorded well. Her urine output recorded is 1.6 liters yesterday and 600 mL so far today since overnight. Her weight on the bed scale reported is 161.2 kg. PHYSICAL EXAMINATION: GENERAL: The patient is morbidly obese, awake, alert, oriented times three, sitting in the sofa in no apparent distress. HEAD AND NECK EXAM: Extraocular muscles intact. Pupils equally round and reactive to light. Neck is supple. There is no jugular venous distention (JVD). CARDIOVASCULAR: S1, S2, regular rate. No murmur, rub or gallop. RESPIRATORY: Chest is clear to auscultation bilaterally. Bilateral equal air entry. No rales or rhonchi. The patient is wearing oxygen. ABDOMEN: Soft, obese, positive bowel sounds and positive abdominal wall edema. EXTREMITIES: The patient has bilateral lower extremity edema and erythema with oozing of the fluid from the left leg, but her edema is significantly getting better with the current dose of diuretics. CENTRAL NERVOUS SYSTEM: No focal neurological deficit. Power is 5/5 in all extremities. LAB REVIEW: CBC showed a WBC of 9.9, hemoglobin 8.1; it is better than yesterday - it was 7.2 yesterday. Platelets are 239. BMP showed sodium 139, potassium 3.8, chloride 95, bicarbonate 36, BUN 55, creatinine 1.4; it was 1.3 yesterday. Calcium is 9. Microbiology: Stool for occult blood is pending today. CURRENT MEDICATIONS: The patient's current medications were all reviewed by me. There is no change in the medications at this time. ASSESSMENT: A 66-year-old female with a past medical history of morbid obesity, chronic systolic and diastolic congestive heart failure, nephrology service following the patient for management of fluid overload. PLAN: 1. Acute on chronic congestive heart failure and fluid overload. The patient continues to have good urine output with the current dose of torsemide, metolazone and spironolactone. Continue current dose. 2. Metabolic alkalosis. The patient's alkalosis is secondary to chronic obstructive pulmonary disease (COPD) and oxygen dependence and part of it is because of diuretics. Her serum bicarbonate level is fluctuating between 35-36. I would continue the current dose of diuretics at this time. 3. Anemia in chronic kidney disease. The patient's fecal occult blood is sent; it is pending. There is no evidence of any blood loss anywhere. The patient got two units of packed red blood cells transfusion yesterday. No need of transfusion today. Continue current dose of Aranesp 300 mcg subcu on Sunday. When the patient goes home, she should be placed on Procrit 20,000 units every 2 weeks, and if her hemoglobin does not come up, then she can be given Procrit 20,000 units every week as well. 4. Bilateral lower extremity edema and blisters. The patient's edema is significantly getting better with the current aggressive dose of diuretics. The patient would benefit from compression dressings of the bilateral lower extremities. Continue wound care as per nursing. Plan of care was discussed with the hospitalist team, Dr. Chito Gray.
[2016-05-05] MEDS: **NOTE PATIENT COMMENT** MISC XX SCH (21:00)
[2016-05-05 22:00] VITALS: BP 121/63
[2016-05-06 06:00] VITALS: BP 114/51
[2016-05-06] MEDS: CEPACOL LOZENGE PO PRN (06:18)
[2016-05-06] MEDS: TIOTROPIUM INHALER/CAPSULE (SPIRIVA) INH SCH (07:11)
[2016-05-06] MEDS: IPRATROPIUM 0.5MG/ALBUTEROL 2.5MG INH SOL UD 3ML (DUONEB)(J7620) NEB SCH ×4 (07:11→19:49)
[2016-05-06] MEDS: BREO ELLIPTA INH SCH (07:11)
[2016-05-06] MEDS: DABIGATRAN ETEXILATE 75 MG CAP (PRADAXA) PO SCH ×2 (08:04→20:00)
[2016-05-06] MEDS: HumaLOG INSULIN (NovoLOG) PER UNIT SC SCH ×4 (08:05→20:02)
[2016-05-06] MEDS: LIDOCAINE 5% (LIDODERM) PATCH TD SCH (08:05)
[2016-05-06] MEDS: ASPIRIN 81 MG ENTERIC TAB PO SCH (08:06)
[2016-05-06] MEDS: ASCORBIC ACID 500 MG TAB PO SCH ×2 (08:06→17:17)
[2016-05-06] MEDS: FERROUS SULFATE 325MG TAB PO SCH (08:07)
[2016-05-06] MEDS: MULTIVITAMINS/MINERALS THERAP 1 TAB PO SCH (08:07)
[2016-05-06] MEDS: ATORVASTATIN 20 MG TAB PO SCH (08:07)
[2016-05-06] MEDS: metOLazone 2.5 MG TAB PO SCH (08:07)
[2016-05-06] MEDS: FLUCONAZOLE 100 MG TAB PO SCH (08:07)
[2016-05-06] MEDS: NYSTATIN 100,000 UNITS/GM TOPICAL PWD 15 GM TOP SCH ×2 (08:09→20:04)
[2016-05-06 08:13] VITALS: BP 108/58
[2016-05-06] MEDS: DOCUSATE SODIUM 100 MG CAP PO PRN (08:23)
[2016-05-06] MEDS: TORSEMIDE (DEMADEX) 50 MG PER 1/2 TAB PO SCH (08:23)
[2016-05-06] MEDS: LORATADINE 10 MG TAB PO PRN (08:23)
[2016-05-06] MEDS: SPIRONOLACTONE 25 MG TAB PO SCH ×2 (08:24→16:13)
[2016-05-06] MEDS: POTASSIUM CHLORIDE 10 MEQ SR TABLET PO SCH ×3 (08:24→20:00)
[2016-05-06] MEDS: PANTOPRAZOLE 40MG TAB (PROTONIX) PO SCH (08:24)
[2016-05-06] MEDS: METOPROLOL TART 12.5 MG PER 1/2 TAB PO SCH ×2 (08:25→20:01)
[2016-05-06] MEDS: PERCOCET 5MG/325MG TAB PO PRN ×3 (11:04→23:40)
[2016-05-06 13:45] LABS: ALBUMIN 3.4 GM/DL (3.2-5.2); CALCIUM LEVEL 9.3 MG/DL (8.8-10.2); CREATININE FOR GFR 1.33 MG/DL (0.55-1.02); GLOMERULAR FILTRATION RATE 42.5 (>45); PHOSPHORUS LEVEL 3.1 MG/DL (2.5-4.9); POTASSIUM SERUM 3.2 MEQ/L (3.5-5.1)
--- NOTE | 2016-05-06 13:57 | IPNPDOC ---
Assessment/Plan Date Seen The patient was seen on 05/06/16. Problems Problems: (1) Chronic anemia Status: Chronic Problem Text: normocytic received venofer, prbc and darbapoietin transfuse 2 units 05/04/16 first occult blood positive will repeat pt may need to be evaluated by GI will repeat labs pt is on pradaxa for afib if her H&H continue to drop will hold pradaxa (2) Anasarca Status: Acute Response to Treatment: Improving Problem Text: due to diastolic congestive heart failure. on multiple diuretics. (3) Cellulitis Status: Acute Response to Treatment: Improving (4) Acute on chronic diastolic CHF (congestive heart failure) Status: Acute Problem Text: continue diuresis , daily weights. (5) Acute and chronic respiratory failure with hypoxia Status: Acute Problem Text: multifactorial due to CAP and diastolic chf exacerbation and fluid slowly improving with diuresis and antibiotics. (6) CAP (community acquired pneumonia) Status: Resolved Problem Text: finished course on ceftriaxone. (7) Constipation Status: Resolved Problem Text: on bowel regimen (8) JANE (obstructive sleep apnea) Status: Chronic (9) Morbid obesity Status: Chronic (10) Diabetes Status: Chronic (11) Hypertension Status: Chronic (12) COPD (chronic obstructive pulmonary disease) Status: Chronic Problem Text: continue home meds. (13) CAD (coronary artery disease) Status: Chronic (14) Hyperlipidemia Status: Chronic (15) Mitral stenosis and incompetence Status: Chronic (16) Pulmonary hypertension Status: Chronic (17) Afib Status: Chronic Problem Text: on pradaxa (18) Allergy Status: Chronic Problem Text: continue loratidine (19) Hematuria Status: Resolved Problem Text: possibly from trama from [place] (20) Chronic respiratory failure with hypoxia Status: Chronic Problem Text: now at baseline level of oxygen by nasal canula (21) SANTINO (acute kidney injury) Status: Acute Response to Treatment: Improving Problem Text: due to aggressive diuresis will continue to monitor. diuretic dosage decreased today Plan / VTE VTE Prophylaxis Ordered?: Yes Plan / Urinary Catheter Reason for insertion/continuin: Other-document below Subjective Review of Systems CC/HPI The patient is a 66-year-old female admitted with a reason for visit of Acute Respiratory Distress. Events since last encounter pt seen and examined, she states she feels better Objective Physical Examination General Exam: Positive: Alert, No Acute Distress Eye Exam: Positive: Conjunctiva & lids normal, EOMI, PERRLA, Negative: Sclera icteric ENT Exam: Positive: Atraumatic, Mucous membr. moist/pink, Pharynx Normal Neck Exam: Positive: Supple, Negative: JVD, thyromegaly Chest Exam: Positive: Diminished Heart Exam: Positive: Normal S1, Normal S2, Rate Normal, Regular Rhythm Abdomen Exam: Positive: Normal bowel sounds, Soft, Negative: Hepatospenomegaly, Tenderness Extremity Exam: Positive: Edema, Other (redness and inflammation), Swelling, Tenderness Vital Signs/I&O Vital Signs Date Time Temp Pulse Resp B/P Pulse Ox O2 Delivery O2 Flow Rate FiO2 05/06/16 11:34 18 05/06/16 08:25 89 108/58 05/06/16 08:13 88 05/06/16 06:00 97.1 Nasal Cannula 2.0 I&O- Last 24 Hours up to 6 AM 05/06/16 06:00 Intake Total 1000 ml Output Total 5900 ml Balance -4900 ml Laboratory Data Labs 24H Laboratory Tests 2 05/05/16 16:47: Bedside Glucose (Misc Panel) 199H 05/05/16 20:17: Bedside Glucose (Misc Panel) 132H 05/06/16 06:24: Bedside Glucose (Misc Panel) 132H 05/06/16 11:32: Bedside Glucose (Misc Panel) 162H 05/06/16 13:18: Albumin 3.4, Blood Urea Nitrogen 56H, Creatinine 1.33H, Sodium Level 137, Potassium Level 3.2L, Chloride Level 93L, Carbon Dioxide Level 35H, Anion Gap 9 , Calcium Level 9.3, Glomerular Filtration Rate 42.5L, Phosphorus Level 3.1 CBC/BMP Laboratory Tests 05/05/16 16:59 05/06/16 13:18 Anion Gap 9 FSBS Laboratory Tests Test 05/05/16 16:47 05/05/16 20:17 05/06/16 06:24 05/06/16 11:32 Range/Units Bedside Glucose (Misc Panel) 199 132 132 162 80-115 MG/DL Microbiology Microbiology 05/06/16 Stool Occult Blood (TESS) - Final, Complete 05/05/16 Stool Occult Blood (TESS) - Final, Complete SANA MAYER DO May 06, 2016 13:57
[2016-05-06 14:00] VITALS: BP 125/58
[2016-05-06] MEDS: TORSEMIDE 20 MG TAB PO SCH (16:12)
[2016-05-06] MEDS: **NOTE PATIENT COMMENT** MISC XX SCH (20:14)
[2016-05-06 21:48] LABS: BASO # 0.1 K/mm3 (0.0-0.2); BASO % 0.6 % (0.0-1.0); EOS # 0.2 K/mm3 (0.0-0.50); LARGE UNSTAINED CELL # 0.3 K/mm3 (0.0-0.4); LARGE UNSTAINED CELL % 2.6 % (0.0-4.0); LYMPH # 1.1 K/mm3 (1.5-4.5); LYMPH % 8.3 % (24.0-44.0); MEAN CORPUSCULAR HEMOGLOBIN 30.1 pg (27.0-33.0); MEAN CORPUSCULAR HGB CONC 29.5 g/dl (32.0-36.5); MEAN CORPUSCULAR VOLUME 101.9 fl (80.0-96.0); MONO # 0.7 K/mm3 (0.0-0.8); MONO % 7.3 % (0.0-5.0); NEUTROPHILS # 8.1 K/mm3 (1.8-7.7); NEUTROPHILS % 79.3 % (36.0-66.0); PLATELET COUNT, AUTOMATED 273 k/mm3 (150-450); RED CELL DISTRIBUTION WIDTH 20.6 % (11.5-14.5); WHITE BLOOD COUNT 10.2 K/mm3 (4.0-10.0)
[2016-05-06 21:58] LABS: ADD MORPHOLOGY? YES
[2016-05-06 22:00] VITALS: BP 119/66
[2016-05-06 22:05] LABS: ALBUMIN 3.3 GM/DL (3.2-5.2); ALBUMIN/GLOBULIN RATIO 0.69 (1.00-1.93); CALCIUM LEVEL 9.2 MG/DL (8.8-10.2); CREATININE FOR GFR 1.53 MG/DL (0.55-1.02); GLOMERULAR FILTRATION RATE 36.2 (>45); POTASSIUM SERUM 3.2 MEQ/L (3.5-5.1); TOTAL PROTEIN 8.1 GM/DL (6.4-8.2)
[2016-05-06 22:24] LABS: ANISOCYTOSIS 3+; HYPOCHROMASIA 2+; OVALOCYTES 1+; POIKILOCYTOSIS 2+; POLYCHROMASIA 2+
[2016-05-07] MEDS: PERCOCET 5MG/325MG TAB PO PRN ×3 (03:45→14:05)
[2016-05-07 06:00] VITALS: BP 119/54
[2016-05-07] MEDS: TIOTROPIUM INHALER/CAPSULE (SPIRIVA) INH SCH (07:13)
[2016-05-07] MEDS: IPRATROPIUM 0.5MG/ALBUTEROL 2.5MG INH SOL UD 3ML (DUONEB)(J7620) NEB SCH ×4 (07:13→19:39)
[2016-05-07] MEDS: BREO ELLIPTA INH SCH (07:14)
--- NOTE | 2016-05-07 07:44 | IPN ---
DATE: 05/06/2016 SUBJECTIVE: The patient was seen and examined at the bedside today in the morning. I do not have the labs available today, but patient reports that she had a lot of cramps of her upper extremities yesterday. She was not given any more blood transfusion yesterday. She is otherwise hemodynamically stable. REVIEW OF SYSTEMS: The patient denies any fever, chills, rigors, headache, nausea, vomiting, chest pain. She has baseline shortness of breath requiring oxygen. She denies any pain in abdomen or constipation. She reports her lower extremity edema is significantly getting better. However, she reported a lot of cramps of her upper extremities. All other review of systems is negative. OBJECTIVE: VITAL SIGNS: Temperature is 97.1 degrees Fahrenheit, blood pressure is 108/58, pulse is 89, respiratory rate of 18, saturating 90% on nasal cannula at 2 liters. INTAKE/OUTPUT: Urine output recorded as 4.2 liters yesterday and 3.7 liters so far today since overnight. PHYSICAL EXAMINATION: GENERAL: The patient is awake, alert, oriented times three, sitting in the sofa in no apparent distress. HEAD AND NECK EXAM: Extraocular muscles intact. Pupils equally round and reactive to light. Neck is supple. There is no jugular venous distention (JVD). CARDIOVASCULAR: S1, S2, regular rate. No murmur, rub or gallop. RESPIRATORY: Chest is clear to auscultation bilaterally. Bilateral equal air entry. No rales or rhonchi. ABDOMEN: Soft, obese. Positive bowel sounds. Nontender. No organomegaly. EXTREMITIES: The patient has bilateral lower extremity edema which is almost 1+ and pitting up to the knees. I believe her edema is slightly better as compared with two days ago, but she persistently has lower extremity erythema and left leg ulcerations. CENTRAL NERVOUS SYSTEM: No focal neurological deficit. Power is 5/5 in all extremities. LAB REVIEW: Hemoglobin yesterday was 8.8, hematocrit was 29.6. There is no BMP available today. CURRENT MEDICATIONS: The patient's current medications were all reviewed by me. Pertinent changes in the medications include her torsemide dose has been decreased to 40 mg by mouth twice a day. ASSESSMENT: 66-year-old female with past medical history of morbid obesity, chronic systolic and diastolic congestive heart failure, nephrology service following the patient for management of fluid overload. PLAN: 1. Acute on chronic congestive heart failure. The patient's fluid overload is getting better. I have decreased the torsemide dose today to 40 mg by mouth twice a day. Continue metolazone 2.5 mg by mouth daily and spironolactone 25 mg by mouth twice a day. The patient was having a lot of upper extremity cramps and that is why the torsemide dose is being decreased. 2. Anemia and chronic kidney disease. The patient got two units of packed red blood cells transfusions two days ago. Her fecal occult blood is positive. Management is as per primary team. The patient will probably need GI evaluation to rule out GI bleed. 3. Bilateral lower extremity edema and blisters. The patient continues to have good urine output, more than 4 liters every day, with the current dose of diuretics, but because of the upper extremity cramps, I have decreased the dose of torsemide to 40 mg twice a day. Continue the current dose of metolazone and spironolactone. Oozing from the legs is getting better since the leg edema is improving. Wound care and rest of the management as per primary team.
[2016-05-07 08:15] LABS: MEAN CORPUSCULAR HEMOGLOBIN 30.3 pg (27.0-33.0); MEAN CORPUSCULAR HGB CONC 29.5 g/dl (32.0-36.5); MEAN CORPUSCULAR VOLUME 102.7 fl (80.0-96.0); RED CELL DISTRIBUTION WIDTH 20.3 % (11.5-14.5); WHITE BLOOD COUNT 8.5 K/mm3 (4.0-10.0)
[2016-05-07] MEDS: LIDOCAINE 5% (LIDODERM) PATCH TD SCH (08:15)
[2016-05-07] MEDS: ATORVASTATIN 20 MG TAB PO SCH (08:16)
[2016-05-07] MEDS: LORATADINE 10 MG TAB PO PRN (08:16)
[2016-05-07] MEDS: TORSEMIDE 20 MG TAB PO SCH ×2 (08:16→16:04)
[2016-05-07] MEDS: FLUCONAZOLE 100 MG TAB PO SCH (08:17)
[2016-05-07] MEDS: DOCUSATE SODIUM 100 MG CAP PO PRN (08:17)
[2016-05-07] MEDS: POTASSIUM CHLORIDE 10 MEQ SR TABLET PO SCH ×3 (08:18→21:07)
[2016-05-07] MEDS: FERROUS SULFATE 325MG TAB PO SCH (08:19)
[2016-05-07] MEDS: METOPROLOL TART 12.5 MG PER 1/2 TAB PO SCH ×2 (08:19→21:07)
[2016-05-07] MEDS: PANTOPRAZOLE 40MG TAB (PROTONIX) PO SCH (08:19)
[2016-05-07] MEDS: MULTIVITAMINS/MINERALS THERAP 1 TAB PO SCH (08:19)
[2016-05-07] MEDS: DABIGATRAN ETEXILATE 75 MG CAP (PRADAXA) PO SCH (08:20)
[2016-05-07] MEDS: ASCORBIC ACID 500 MG TAB PO SCH ×2 (08:20→18:31)
[2016-05-07] MEDS: metOLazone 2.5 MG TAB PO SCH (08:20)
[2016-05-07] MEDS: ASPIRIN 81 MG ENTERIC TAB PO SCH (08:20)
[2016-05-07] MEDS: SPIRONOLACTONE 25 MG TAB PO SCH ×2 (08:20→16:05)
[2016-05-07] MEDS: HumaLOG INSULIN (NovoLOG) PER UNIT SC SCH ×4 (08:21→21:00)
[2016-05-07] MEDS: NYSTATIN 100,000 UNITS/GM TOPICAL PWD 15 GM TOP SCH ×2 (08:23→21:08)
[2016-05-07 08:32] LABS: CREATININE FOR GFR 1.35 MG/DL (0.55-1.02); GLOMERULAR FILTRATION RATE 41.8 (>45); MAGNESIUM LEVEL 2.2 MG/DL (1.8-2.4); PHOSPHORUS LEVEL 4.4 MG/DL (2.5-4.9); POTASSIUM SERUM 3.6 MEQ/L (3.5-5.1)
[2016-05-07] MEDS: DARBEPOETIN 300 MCG/0.6 ML *NON-DIALYSIS* SYRINGE (J0881) SC SCH (12:28)
[2016-05-07] MEDS: SUCRALFATE 1 GM TAB PO SCH ×2 (12:28→17:44)
[2016-05-07] MEDS ORDERED: ONDANSETRON 4 MG TAB (S0181) PO PRN (12:30)
[2016-05-07 14:00] VITALS: BP 103/46
[2016-05-07 19:40] VITALS: O2SAT 91
[2016-05-07] MEDS: **NOTE PATIENT COMMENT** MISC XX SCH (21:00)
[2016-05-07 22:00] VITALS: BP 123/83
--- NOTE | 2016-05-07 22:31 | IPNPDOC ---
Assessment/Plan Date Seen The patient was seen on 05/07/16. Problems Problems: (1) Chronic anemia Status: Chronic Problem Text: normocytic received venofer, prbc and darbapoietin transfuse 2 units 05/04/16 first occult blood positive will repeat pt may need to be evaluated by GI will repeat labs pt is on pradaxa for afib if her H&H continue to drop will hold pradaxa (2) Anasarca Status: Acute Response to Treatment: Improving Problem Text: due to diastolic congestive heart failure. on multiple diuretics. (3) Cellulitis Status: Acute Response to Treatment: Improving (4) Acute on chronic diastolic CHF (congestive heart failure) Status: Acute Problem Text: continue diuresis , daily weights. (5) Acute and chronic respiratory failure with hypoxia Status: Acute Problem Text: multifactorial due to CAP and diastolic chf exacerbation and fluid slowly improving with diuresis and antibiotics. (6) CAP (community acquired pneumonia) Status: Resolved Problem Text: finished course on ceftriaxone. (7) Constipation Status: Resolved Problem Text: on bowel regimen (8) JANE (obstructive sleep apnea) Status: Chronic (9) Morbid obesity Status: Chronic (10) Diabetes Status: Chronic (11) Hypertension Status: Chronic (12) COPD (chronic obstructive pulmonary disease) Status: Chronic Problem Text: continue home meds. (13) CAD (coronary artery disease) Status: Chronic (14) Hyperlipidemia Status: Chronic (15) Mitral stenosis and incompetence Status: Chronic (16) Pulmonary hypertension Status: Chronic (17) Afib Status: Chronic Problem Text: on pradaxa (18) Allergy Status: Chronic Problem Text: continue loratidine (19) Hematuria Status: Resolved Problem Text: possibly from trama from [place] (20) Chronic respiratory failure with hypoxia Status: Chronic Problem Text: now at baseline level of oxygen by nasal canula (21) SANTINO (acute kidney injury) Status: Acute Response to Treatment: Improving Problem Text: due to aggressive diuresis will continue to monitor. diuretic dosage decreased today Plan / VTE VTE Prophylaxis Ordered?: Yes Plan / Urinary Catheter Reason for insertion/continuin: Other-document below Subjective Review of Systems CC/HPI The patient is a 66-year-old female admitted with a reason for visit of Acute Respiratory Distress. Objective Physical Examination General Exam: Positive: Alert, No Acute Distress Eye Exam: Positive: Conjunctiva & lids normal, EOMI, PERRLA, Negative: Sclera icteric ENT Exam: Positive: Atraumatic, Mucous membr. moist/pink, Pharynx Normal Neck Exam: Positive: Supple, Negative: JVD, thyromegaly Chest Exam: Positive: Diminished Heart Exam: Positive: Normal S1, Normal S2, Rate Normal, Regular Rhythm Abdomen Exam: Positive: Normal bowel sounds, Soft, Negative: Hepatospenomegaly, Tenderness Extremity Exam: Positive: Edema, Other (redness and inflammation), Swelling, Tenderness Vital Signs/I&O Vital Signs Date Time Temp Pulse Resp B/P Pulse Ox O2 Delivery O2 Flow Rate FiO2 05/07/16 21:07 99 123/83 05/07/16 19:40 91 Nasal Cannula 2.0 05/07/16 14:35 18 05/07/16 14:00 97.9 I&O- Last 24 Hours up to 6 AM 05/07/16 05:59 Intake Total 1080 ml Output Total 5650 ml Balance -4570 ml Laboratory Data Labs 24H Laboratory Tests 2 05/07/16 06:31: Bedside Glucose (Misc Panel) 129H 05/07/16 08:07: Albumin 3.0L, Blood Urea Nitrogen 54H, Creatinine 1.35H, Sodium Level 139, Potassium Level 3.6, Chloride Level 95L, Carbon Dioxide Level 35H, Anion Gap 9, Calcium Level 9.0, Glomerular Filtration Rate 41.8L, Magnesium Level 2.2, Phosphorus Level 4.4# 05/07/16 12:02: Bedside Glucose (Misc Panel) 158H 05/07/16 17:35: Bedside Glucose (Misc Panel) 169H 05/07/16 19:54: Bedside Glucose (Misc Panel) 140H CBC/BMP Laboratory Tests 05/07/16 08:07 Anion Gap 9, Red Blood Count 2.93 L, Mean Corpuscular Volume 102.7 H, Mean Corpuscular Hemoglobin 30.3, Mean Corpuscular Hemoglobin Concent 29.5 L, Red Cell Distribution Width 20.3 H FSBS Laboratory Tests Test 05/07/16 06:31 05/07/16 12:02 05/07/16 17:35 05/07/16 19:54 Range/Units Bedside Glucose (Misc Panel) 129 158 169 140 80-115 MG/DL Microbiology Microbiology 05/06/16 Stool Occult Blood (TSES) - Final, Complete 05/05/16 Stool Occult Blood (TESS) - Final, Complete SANA MAYER DO May 07, 2016 22:31
[2016-05-08] VITALS (7 sets, daily range): BP systolic 99–129; BP diastolic 52–60
[2016-05-08] MEDS: PERCOCET 5MG/325MG TAB PO PRN ×2 (03:40→21:33)
[2016-05-08 06:53] LABS: MEAN CORPUSCULAR HEMOGLOBIN 30.6 pg (27.0-33.0); MEAN CORPUSCULAR HGB CONC 30.4 g/dl (32.0-36.5); MEAN CORPUSCULAR VOLUME 100.9 fl (80.0-96.0); RED CELL DISTRIBUTION WIDTH 18.5 % (11.5-14.5); WHITE BLOOD COUNT 8.8 K/mm3 (4.0-10.0)
[2016-05-08] MEDS: TIOTROPIUM INHALER/CAPSULE (SPIRIVA) INH SCH (07:12)
[2016-05-08 07:13] LABS: ALBUMIN 2.8 GM/DL (3.2-5.2); CALCIUM LEVEL 8.7 MG/DL (8.8-10.2); CREATININE FOR GFR 1.25 MG/DL (0.55-1.02); GLOMERULAR FILTRATION RATE 45.6 (>45); PHOSPHORUS LEVEL 4.2 MG/DL (2.5-4.9); POTASSIUM SERUM 3.5 MEQ/L (3.5-5.1)
[2016-05-08] MEDS: BREO ELLIPTA INH SCH (07:13)
[2016-05-08] MEDS: IPRATROPIUM 0.5MG/ALBUTEROL 2.5MG INH SOL UD 3ML (DUONEB)(J7620) NEB SCH ×4 (07:14→20:28)
[2016-05-08] MEDS: SUCRALFATE 1 GM TAB PO SCH ×3 (07:30→17:30)
[2016-05-08] MEDS: HumaLOG INSULIN (NovoLOG) PER UNIT SC SCH ×4 (07:30→21:00)
[2016-05-08] MEDS: ASCORBIC ACID 500 MG TAB PO SCH ×2 (08:00→18:00)
[2016-05-08] MEDS: TORSEMIDE 20 MG TAB PO SCH ×2 (08:40→17:00)
[2016-05-08] MEDS: SPIRONOLACTONE 25 MG TAB PO SCH ×2 (08:40→17:00)
[2016-05-08] MEDS: metOLazone 2.5 MG TAB PO SCH (08:40)
[2016-05-08] MEDS: LIDOCAINE 5% (LIDODERM) PATCH TD SCH (08:41)
[2016-05-08] MEDS: ASPIRIN 81 MG ENTERIC TAB PO SCH (08:42)
[2016-05-08] MEDS: METOPROLOL TART 12.5 MG PER 1/2 TAB PO SCH ×2 (08:43→21:32)
[2016-05-08] MEDS: ATORVASTATIN 20 MG TAB PO SCH (08:43)
[2016-05-08] MEDS: PANTOPRAZOLE 40MG TAB (PROTONIX) PO SCH (08:43)
[2016-05-08] MEDS: FERROUS SULFATE 325MG TAB PO SCH (08:43)
[2016-05-08] MEDS: MULTIVITAMINS/MINERALS THERAP 1 TAB PO SCH (08:43)
[2016-05-08] MEDS: POTASSIUM CHLORIDE 10 MEQ SR TABLET PO SCH ×3 (08:43→21:32)
[2016-05-08] MEDS: NYSTATIN 100,000 UNITS/GM TOPICAL PWD 15 GM TOP SCH ×2 (08:44→21:00)
[2016-05-08 10:41] LABS: INR 1.62
--- NOTE | 2016-05-08 11:01 | IPN ---
DATE OF VISIT: 05/07/2016 SUBJECTIVE: The patient was seen and examined today at the bedside. She complained of mild weakness. Her renal function is stable. She continues to have good urine output. Her weight is going down and edema is improving. REVIEW OF SYSTEMS: The patient denies any fever, chills, rigors, headache, nausea, vomiting, chest pain. She has baseline shortness of breath. She denies any pain in the abdomen, constipation or diarrhea. She reports leg edema but she reports it is significantly getting better and oozing from the left leg is getting better as well. She did report some cramps in the leg and upper extremities but her diuretic dose was already decreased yesterday. All other review of systems is negative. OBJECTIVE: VITAL SIGNS: Temperature 97.9 degrees Fahrenheit, blood pressure 103/46, pulse 104, respiratory rate 18 saturation 92% on nasal cannula at 2 liters. INTAKE AND OUTPUT: Urine output recorded as 5.6 liters yesterday and 2.2 liters so far today since overnight. Weight on the bed scale is 158.7 kg. She is persistently losing about 1 kg weight every day. GENERAL: The patient is awake, alert and oriented times three, sitting on the sofa in no acute distress. HEAD/NECK: Extraocular muscles intact. Pupils equal, round, reactive to light. Neck is supple. There is no jugular venous distention (JVD). CARDIOVASCULAR: S1, S2, regular rate, no murmurs, rubs, gallops. RESPIRATORY: Chest is clear to auscultation bilaterally, bilateral equal air entry. No rales or rhonchi. ABDOMEN: Morbidly obese, soft, positive bowel sounds. Nontender, no organomegaly. EXTREMITIES: The patient has bilateral lower extremity edema which is 1+ and significantly better than before. She has had edema of the bilateral lower extremities and she has some blisters and ulcers on the left leg which are still draining a little bit of tissue fluid but is significant better than before. CENTRAL NERVOUS SYSTEM (DENTAL CHAIRSIDE ASSISTANT): No focal neurological deficits. Power is 5/5 in all extremities. LAB REVIEW: CBC showed WBC of 8.5, hemoglobin 8.9, platelets 273. BMP showed sodium 139, potassium 3.6, chloride 95, bicarbonate 35, BUN 54, creatinine 1.35, calcium 9, phosphorus 4.4, magnesium 2.2. CURRENT MEDICATIONS: The patient's current medications were all reviewed by me. Pertinent change in the medications include: - Pradaxa has been stopped ASSESSMENT: 66-year-old female with past medical history of morbid obesity, chronic systolic and diastolic congestive heart failure, nephrology service is following the patient for management of congestive heart failure (CHF) and fluid overload. PLAN: 1. Acute on chronic congestive heart failure and fluid overload. The patient is making significant progress. She is having about 4-5 liters of urine output every day. She is slowly losing weight. I decreased her diuretic dose yesterday because she was having cramps so currently she is on Torsemide 40 mg by mouth twice a day; metolazone 2.5 mg daily and spironolactone 25 mg by mouth twice a day. Continue the current regimen at this time. Continue to check her daily weight and 24 hour intake and output. 2. Anemia in chronic kidney disease. The patient was having fecal occult positive test. She was also on Pradaxa, Pradaxa has been stopped. She is status post two units of packed red blood cells (PRBC) transfusion. Hemoglobin is acceptable at this time. 3. Bilateral lower extremity edema. Her edema is significant getting better with the current dose of diuretics. Try to keep the legs elevated. She would also benefit from compression dressings. Plan of care was discussed with the hospitalist, Dr. Chito Gray.
--- NOTE | 2016-05-08 14:25 | IPN ---
DATE OF SERVICE: 05/08/2016 SUBJECTIVE: Patient was seen this morning at bedside. No acute overnight issues. She states that she is feeling okay. No complaints of chest pain or increased shortness of breath. Lower extremities continue to have lower extremity edema, but oozing is improved. Patient previously had heme-positive stool, but does not appreciate any blood in her stool currently. She does report that she had "bleeding in her throat" OBJECTIVE: VITAL SIGNS: Temperature 97.9, pulse 84, respiratory rate 18, blood pressure 106/55, pulse oximetry 97% on 2 liters. INTAKE AND OUTPUT: Patient has had a net negative of 1840 mL in the previous 24 hours. Current documented weight is 159 kg. She has had a significant amount of negative balance. GENERAL: Patient is alert and oriented, in no acute distress, lying in bed comfortably. HEENT: Normocephalic, atraumatic. Extraocular muscles are intact. Moist mucosa. NECK: Supple. Jugular veins are up to her ear. HEART: Normal S1-S2. Irregular. I did not appreciate a murmur. LUNGS: Fair air movement bilaterally; however, diminished. No distinct rhonchi or wheezing appreciated. ABDOMEN: Morbidly obese. Soft. Nontender. EXTREMITIES: Patient has 2+ lower extremity edema with minimal drainage. Legs are also dry and scaly. SKIN: Ecchymoses present on right arm. NEUROLOGIC: No focal deficits. LABORATORY DATA: WBC 8.8, hemoglobin 7.9, hematocrit 25.9, platelet count 236. Sodium 139, potassium 3.5, chloride 95, carbon dioxide 35, anion gap 9, BUN 50, creatinine 1.25. GFR 45.6, fasting glucose 129, calcium 8.7, phosphorus 4.2, albumin 2.8. ASSESSMENT AND PLAN: Ms. Magaña is a 66-year-old female with past medical history significant for morbid obesity, chronic systolic and diastolic congestive heart failure, being followed for congestive heart failure (CHF) and fluid overload. 1. Acute on chronic systolic and diastolic congestive heart failure and fluid overload. Patient has been diuresed for several days within a net negative 1840 mL in the previous 24 hours. No adjustments are being made to her medications as she remains on torsemide 40 mg twice daily with metolazone 2.5 mg daily, spironolactone 25 mg twice daily. Renal function is improved. Electrolytes are stable. Volume status does not appear to be quite compensated at this time and will continue with current regimen. Continue to monitor intake and output and daily weights. 2. Anemia and chronic kidney disease. Hemoglobin is currently 7.9. Will need to monitor this closely. Transfuse if needed. She is status post two packs of red blood cells on 05/04/2016. Pradaxa has been held given her heme-positive stool. There appears to be a gastrointestinal (GI) consult in place for possible GI bleed. 3. Bilateral lower extremity edema. Improving with current regimen of diuretics. Continue to monitor closely and keep legs elevated. 4. Morbid obesity, which complicates care. Thank you for allowing us to participate in the care of Ms. Magaña. My preceptor for this patient encounter was Dr. Skylar Osuna. The preceptor was physically present in the building during the encounter and was fully available as needed. All aspects of the patient interview, examination, medical decision-making process, and medical care plan development were reviewed and approved by the preceptor. The preceptor is aware and concurs with the plan as stated in the body of this note and will attest to such by his/her co-signature. ADELE
[2016-05-08] MEDS ORDERED: PROPOFOL 200 MG/20 ML VIAL As Ordered ONE (18:14)
--- NOTE | 2016-05-08 18:33 | ROOR ---
Patient Name: Francisca Magaña Procedure Date: 05/08/2016 5:49 PM Date of : 1950 Age: 66 Room: Main OR Gender: Female Note Status: Finalized Procedure: Upper GI endoscopy Indications: Iron deficiency anemia, Suspected upper gastrointestinal bleeding, Suspected upper gastrointestinal bleeding in patient with chronic blood loss Providers: Andreas Ceballos MD Referring MD: 2. Inpatient 2. Inpatient Requesting Provider: Medicines: Monitored Anesthesia Care Complications: No immediate complications. Procedure: Pre-Anesthesia Assessment: - The heart rate, respiratory rate, oxygen saturations, blood pressure, adequacy of pulmonary ventilation, and response to care were monitored throughout the procedure. The Endoscope was introduced through the mouth, and advanced to the second part of duodenum. The upper GI endoscopy was accomplished without difficulty. The patient tolerated the procedure well. Findings: The Z-line was regular and was found 40 cm from the incisors. No other significant abnormalities were identified in a careful examination of the esophagus. Two diminutive no bleeding angioectasias were found in the gastric body. The exam was otherwise without abnormality. The exam of the duodenum was otherwise normal. Impression: - Z-line regular, 40 cm from the incisors. - Two non-bleeding angioectasias in the stomach. - The examination was otherwise normal. - No specimens collected. - The examination was otherwise normal. Recommendation: - Patient has a contact number available for emergencies. The signs and symptoms of potential delayed complications were discussed with the patient. Return to normal activities tomorrow. Written discharge instructions were provided to the patient. - High fiber diet. - Discharge patient to home. - Continue present medications. - Return to referring physician. - The findings and recommendations were discussed with the patient. Andreas Ceballos MD Andreas Ceballos MD 05/08/2016 6:32:25 PM This report has been signed electronically. Number of Addenda: 0 Note Initiated On: 05/08/2016 5:49 PM Estimated Blood Loss: Estimated blood loss: none.
[2016-05-08] MEDS ORDERED: ONDANSETRON 4MG/2ML VIAL (J2405) IV PRN (19:15)
[2016-05-08] MEDS: **NOTE PATIENT COMMENT** MISC XX SCH (21:00)
--- NOTE | 2016-05-08 22:45 | IPNPDOC ---
Assessment/Plan Date Seen The patient was seen on 05/08/16. Problems Problems: (1) Chronic anemia Status: Acute Problem Text: normocytic received venofer, prbc and darbapoietin transfuse 2 units 05/04/16 pradaxa is stopped s/p EGD no active bleed (2) Anasarca Status: Acute Response to Treatment: Improving Problem Text: due to diastolic congestive heart failure. on multiple diuretics. (3) Cellulitis Status: Resolved Response to Treatment: Improving (4) Acute on chronic diastolic CHF (congestive heart failure) Status: Acute Problem Text: continue diuresis , daily weights. (5) Acute and chronic respiratory failure with hypoxia Status: Acute Problem Text: multifactorial due to CAP and diastolic chf exacerbation and fluid slowly improving with diuresis and antibiotics. (6) CAP (community acquired pneumonia) Status: Resolved Problem Text: finished course on ceftriaxone. (7) Constipation Status: Resolved Problem Text: on bowel regimen (8) JANE (obstructive sleep apnea) Status: Chronic (9) Morbid obesity Status: Chronic (10) Diabetes Status: Chronic (11) Hypertension Status: Chronic (12) COPD (chronic obstructive pulmonary disease) Status: Chronic Problem Text: continue home meds. (13) CAD (coronary artery disease) Status: Chronic (14) Hyperlipidemia Status: Chronic (15) Mitral stenosis and incompetence Status: Chronic (16) Pulmonary hypertension Status: Chronic (17) Afib Status: Chronic Problem Text: pradaxa stopped will speak with cardiology regarding furthur recommendations (18) Allergy Status: Chronic Problem Text: continue loratidine (19) Hematuria Status: Resolved Problem Text: possibly from trama from garcia (20) Chronic respiratory failure with hypoxia Status: Chronic Problem Text: now at baseline level of oxygen by nasal canula (21) SANTINO (acute kidney injury) Status: Acute Response to Treatment: Improving Problem Text: due to aggressive diuresis will continue to monitor. diuretic dosage decreased today Plan / VTE VTE Prophylaxis Ordered?: Yes Plan / Urinary Catheter Reason for insertion/continuin: Other-document below Subjective Review of Systems CC/HPI The patient is a 66-year-old female admitted with a reason for visit of Acute Respiratory Distress. Skin: Denies: Breakdown, Lesions, Rash Pulmonary: Denies: Cough, Dyspnea Objective Physical Examination General Exam: Positive: Alert, No Acute Distress Eye Exam: Positive: Conjunctiva & lids normal, EOMI, PERRLA, Negative: Sclera icteric ENT Exam: Positive: Atraumatic, Mucous membr. moist/pink, Pharynx Normal Neck Exam: Positive: Supple, Negative: JVD, thyromegaly Chest Exam: Positive: Diminished Heart Exam: Positive: Normal S1, Normal S2, Rate Normal, Regular Rhythm Abdomen Exam: Positive: Normal bowel sounds, Soft, Negative: Hepatospenomegaly, Tenderness Extremity Exam: Positive: Edema, Other (redness and inflammation), Swelling, Tenderness Vital Signs/I&O Vital Signs Date Time Temp Pulse Resp B/P Pulse Ox O2 Delivery O2 Flow Rate FiO2 05/08/16 21:33 22 Nasal Cannula 2.0 05/08/16 21:32 93 109/52 05/08/16 18:50 97.4 96 I&O- Last 24 Hours up to 6 AM 05/08/16 06:00 Intake Total 1560 ml Output Total 2400 ml Balance -840 ml Laboratory Data Labs 24H Laboratory Tests 2 05/08/16 06:28: Albumin 2.8L, Blood Urea Nitrogen 50H, Creatinine 1.25H, Sodium Level 139, Potassium Level 3.5, Chloride Level 95L, Carbon Dioxide Level 35H, Anion Gap 9, Calcium Level 8.7L, Glomerular Filtration Rate 45.6, Phosphorus Level 4.2 05/08/16 10:21: Activated Partial Thromboplast Time 49.8H, Prothromb Time International Ratio 1.62, Prothrombin Time 19.3H 05/08/16 12:43: Bedside Glucose (Misc Panel) 146H 05/08/16 17:09: Bedside Glucose (Misc Panel) 143H 05/08/16 20:32: Bedside Glucose (Misc Panel) 168H CBC/BMP Laboratory Tests 05/08/16 06:28 Anion Gap 9, Red Blood Count 2.57 L, Mean Corpuscular Volume 100.9 H, Mean Corpuscular Hemoglobin 30.6, Mean Corpuscular Hemoglobin Concent 30.4 L, Red Cell Distribution Width 18.5 H FSBS Laboratory Tests Test 05/08/16 12:43 05/08/16 17:09 05/08/16 20:32 Range/Units Bedside Glucose (Misc Panel) 146 143 168 80-115 MG/DL Microbiology Microbiology 05/06/16 Stool Occult Blood (TESS) - Final, Complete 05/05/16 Stool Occult Blood (TESS) - Final, Complete SANA MAYER DO May 08, 2016 22:45
[2016-05-09] VITALS: BP 125/56
[2016-05-09 04:00] VITALS: BP 104/52
[2016-05-09] MEDS: FLUTICASONE PROP 0.05% NASAL SPRAY 16 GM (FLONASE) PRN (06:30)
[2016-05-09 06:55] LABS: MEAN CORPUSCULAR HEMOGLOBIN 30.4 pg (27.0-33.0); MEAN CORPUSCULAR HGB CONC 30.6 g/dl (32.0-36.5); MEAN CORPUSCULAR VOLUME 99.4 fl (80.0-96.0); RED CELL DISTRIBUTION WIDTH 19.3 % (11.5-14.5); WHITE BLOOD COUNT 8.1 K/mm3 (4.0-10.0)
[2016-05-09 07:17] LABS: ALBUMIN 3.1 GM/DL (3.2-5.2); CALCIUM LEVEL 8.8 MG/DL (8.8-10.2); CREATININE FOR GFR 1.49 MG/DL (0.55-1.02); GLOMERULAR FILTRATION RATE 37.3 (>45); POTASSIUM SERUM 3.6 MEQ/L (3.5-5.1)
[2016-05-09] MEDS: TIOTROPIUM INHALER/CAPSULE (SPIRIVA) INH SCH (07:32)
[2016-05-09] MEDS: BREO ELLIPTA INH SCH (07:33)
[2016-05-09] MEDS: IPRATROPIUM 0.5MG/ALBUTEROL 2.5MG INH SOL UD 3ML (DUONEB)(J7620) NEB SCH ×4 (07:36→20:19)
[2016-05-09 08:00] VITALS: BP 110/59
[2016-05-09] MEDS: HumaLOG INSULIN (NovoLOG) PER UNIT SC SCH ×4 (08:35→21:00)
[2016-05-09] MEDS: TORSEMIDE 20 MG TAB PO SCH ×2 (08:35→16:04)
[2016-05-09] MEDS: METOPROLOL TART 12.5 MG PER 1/2 TAB PO SCH ×2 (08:35→22:34)
[2016-05-09] MEDS: FERROUS SULFATE 325MG TAB PO SCH (08:36)
[2016-05-09] MEDS: POTASSIUM CHLORIDE 10 MEQ SR TABLET PO SCH ×3 (08:36→22:33)
[2016-05-09] MEDS: metOLazone 2.5 MG TAB PO SCH (08:36)
[2016-05-09] MEDS: ASPIRIN 81 MG ENTERIC TAB PO SCH (08:36)
[2016-05-09] MEDS: SPIRONOLACTONE 25 MG TAB PO SCH ×2 (08:36→16:04)
[2016-05-09] MEDS: SUCRALFATE 1 GM TAB PO SCH ×3 (08:36→18:11)
[2016-05-09] MEDS: PERCOCET 5MG/325MG TAB PO PRN ×3 (08:38→22:34)
[2016-05-09] MEDS: ASCORBIC ACID 500 MG TAB PO SCH ×2 (08:39→18:11)
[2016-05-09] MEDS: PANTOPRAZOLE 40MG TAB (PROTONIX) PO SCH (08:39)
[2016-05-09] MEDS: ATORVASTATIN 20 MG TAB PO SCH (08:39)
[2016-05-09] MEDS: LIDOCAINE 5% (LIDODERM) PATCH TD SCH (08:39)
[2016-05-09] MEDS: MULTIVITAMINS/MINERALS THERAP 1 TAB PO SCH (08:39)
[2016-05-09] MEDS: NYSTATIN 100,000 UNITS/GM TOPICAL PWD 15 GM TOP SCH ×2 (08:40→22:35)
[2016-05-09] MEDS: guaiFENesin ER 600 MG TAB PO PRN (08:43)
[2016-05-09] MEDS: DOCUSATE SODIUM 100 MG CAP PO PRN (08:43)
--- NOTE | 2016-05-09 09:36 | IPNPDOC ---
Date of Service/Time Mar 24, 2016 at 13:00 Progress Note DATE OF SERVICE: 05/09/2016 SUBJECTIVE: Patient was seen this morning at bedside. No acute overnight issues. She states that she is feeling okay. No complaints of sj blood. She had an EGD done yesterday which did not show any active bleeding. No complaints of chest pain or increased shortness of breath. Lower extremities continue to have lower extremity edema, no oozing this morning. No fevers or chills. No nausea, vomiting, abdominal pain or diarrhea. OBJECTIVE: VITAL SIGNS: Temperature 97.4, pulse 90, respiratory rate 18, blood pressure 104 /52, pulse oximetry 91% on 2 liters. INTAKE AND OUTPUT: Patient has had a net negative of 660 mL in the previous 24 hours. Current documented weight is 159.3 kg. GENERAL: Patient is alert and oriented, in no acute distress, sitting up in chair. HEENT: Normocephalic, atraumatic. Extraocular muscles are intact. Moist mucosa. NECK: Supple. Jugular veins are elevated. HEART: Normal S1-S2. Irregularly irregular. I did not appreciate a murmur. LUNGS: Fair air movement bilaterally; however, diminished. No distinct rhonchi or wheezing appreciated. ABDOMEN: Morbidly obese. Soft. Nontender. Bowel sounds are present. EXTREMITIES: Patient has 1+ lower extremity edema. No cyanosis. Feet are warm and dry. She does have some erythema and dryness of lower extremity. SKIN: Ecchymoses present on bilateral upper extremity. NEUROLOGIC: No focal deficits. LABORATORY DATA: Anion Gap 7 L, Red Blood Count 2.75 L, Mean Corpuscular Volume 99.4 H, Mean Corpuscular Hemoglobin 30.4, Mean Corpuscular Hemoglobin Concentration 30.6 L, Red Cell Distribution Width 19.3 H, Albumin 3.1L, Calcium Level 8.8, Phosphorus Level 4.0 ASSESSMENT AND PLAN: Ms. Magaña is a 66-year-old female with past medical history significant for morbid obesity, chronic systolic and diastolic congestive heart failure, being followed for congestive heart failure (CHF) and fluid overload. 1. Acute on chronic systolic and diastolic congestive heart failure and fluid overload. Patient has been diuresing well. Creatinine is slightly more elevated today. We will continue to monitor this. No adjustments are being made to her medications as she remains on torsemide 40 mg twice daily with metolazone 2.5 mg daily, spironolactone 25 mg twice daily. Electrolytes are stable. Volume status has improved. Continue to monitor intake and output and daily weights. 2. Anemia and chronic kidney disease. Hemoglobin is currently 8.4. No signs of any sj bleeding. She is status post two packs of red blood cells on 2016. Pradaxa has been held given her heme-positive stool. Upper EGD did not show any active bleeding. 3. Bilateral lower extremity edema. Improving with current regimen of diuretics. Continue to elevate legs. 4. Morbid obesity, which certainly complicates care. VS, I&O, 24H, Fishbone VS, I&O, 24H, Fishbone GME ATTESTATION GME ATTESTATION My preceptor for this patient encounter was physically present in the building during the encounter and was fully available. As needed, all aspects of the patient interview, examination, medical decision making process, and medical care plan development were reviewed and approved by the preceptor. Preceptor is aware and concurs with the plan as stated in the body of this note and will attest to such by his/her cosignature. ELAINA DAILY DO May 09, 2016 09:36
[2016-05-09] MEDS: DABIGATRAN ETEXILATE 75 MG CAP (PRADAXA) PO SCH ×2 (10:19→22:33)
[2016-05-09 12:00] VITALS: BP 129/75
[2016-05-09 14:00] VITALS: BP 129/61
--- NOTE | 2016-05-09 17:29 | IPNPDOC ---
Assessment/Plan Date Seen The patient was seen on 05/09/16. Problems Problems: (1) Chronic anemia Status: Chronic Response to Treatment: Stable Problem Text: normocytic anemia received venofer, prbc and darbapoietin Recently transfused 2 units on 05/04/16 s/p EGD no active bleed on 05/08/[address] Ceballos of GI-he has recommended resumption of her previous medications We will restart the patient on Pradaxa 150 mg twice a day given the patient's high chads Vasc score We will continue to monitor her hemoglobin level. (2) Anasarca Status: Acute Response to Treatment: Improving Problem Text: due to diastolic congestive heart failure. Patient has been managed on multiple diuretics including torsemide, spironolactone, metolazone by nephrology She has been maintained on a negative fluid balance level over the last few days and her volume status has improved considerably. (3) CAP (community acquired pneumonia) Status: Resolved Problem Text: Status post completion of trial of ceftriaxone. (4) Constipation Status: Resolved Problem Text: on bowel regimen (5) JANE (obstructive sleep apnea) Status: Chronic (6) Morbid obesity Status: Chronic (7) Diabetes Status: Chronic (8) Hypertension Status: Chronic (9) COPD (chronic obstructive pulmonary disease) Status: Chronic Problem Text: continue home meds. Respiratory status has returned back to baseline status after adequate diuresis and trial of antibiotics for community acquired pneumonia. (10) CAD (coronary artery disease) Status: Chronic (11) Hyperlipidemia Status: Chronic (12) Mitral stenosis and incompetence Status: Chronic (13) Pulmonary hypertension Status: Chronic (14) Afib Status: Chronic Problem Text: Continue on Dabigatran as there was no source of bleed found on EGD on 05/08/2016 (15) Allergy Status: Chronic Problem Text: continue loratidine Plan / VTE VTE Prophylaxis Ordered?: Yes Plan / Urinary Catheter Reason for insertion/continuin: Other-document below Subjective Review of Systems CC/HPI The patient is a 66-year-old female admitted with a reason for visit of Acute Respiratory Distress. General: Denies: Chills, Night Sweats Constitutional: Denies: Chills, Fever ENT: Denies: Ear Pain, Head Aches Pulmonary: Denies: Cough, Dyspnea Cardiovascular: Denies: Chest Pain, Palpitations Gastrointestinal: Denies: Abdominal Pain, Nausea, Vomiting Hematologic: Denies: Bleeding Excessively, Bruising Objective Physical Examination General Exam: Positive: Alert, No Acute Distress Eye Exam: Positive: Conjunctiva & lids normal, EOMI, PERRLA, Negative: Sclera icteric ENT Exam: Positive: Atraumatic, Mucous membr. moist/pink, Pharynx Normal Neck Exam: Positive: Supple, Negative: JVD, thyromegaly Chest Exam: Positive: Diminished Heart Exam: Positive: Normal S1, Normal S2, Rate Normal, Regular Rhythm Abdomen Exam: Positive: Normal bowel sounds, Soft, Negative: Hepatospenomegaly, Tenderness Extremity Exam: Positive: Other (chronic venous static changes noted.), Swelling, Negative: Tenderness Vital Signs/I&O Vital Signs Date Time Temp Pulse Resp B/P Pulse Ox O2 Delivery O2 Flow Rate FiO2 05/09/16 14:55 18 05/09/16 14:00 98.4 94 129/61 93 Nasal Cannula 2.0 I&O- Last 24 Hours up to 6 AM 05/09/16 06:00 Intake Total 960 ml Output Total 2100 ml Balance -1140 ml Laboratory Data Labs 24H Laboratory Tests 2 05/08/16 20:32: Bedside Glucose (Misc Panel) 168H 05/09/16 06:17: Albumin 3.1L, Blood Urea Nitrogen 44H, Creatinine 1.49H, Sodium Level 137, Potassium Level 3.6, Chloride Level 93L, Carbon Dioxide Level 37H, Anion Gap 7L , Calcium Level 8.8, Glomerular Filtration Rate 37.3L, Phosphorus Level 4.0 05/09/16 11:37: Bedside Glucose (Misc Panel) 153H 05/09/16 16:48: Bedside Glucose (Misc Panel) 140H CBC/BMP Laboratory Tests 05/09/16 06:17 Anion Gap 7 L, Red Blood Count 2.75 L, Mean Corpuscular Volume 99.4 H, Mean Corpuscular Hemoglobin 30.4, Mean Corpuscular Hemoglobin Concent 30.6 L, Red Cell Distribution Width 19.3 H FSBS Laboratory Tests Test 05/08/16 20:32 05/09/16 11:37 05/09/16 16:48 Range/Units Bedside Glucose (Misc Panel) 168 153 140 80-115 MG/DL Microbiology Microbiology 05/06/16 Stool Occult Blood (TESS) - Final, Complete 05/05/16 Stool Occult Blood (TESS) - Final, Complete TRACIE BRITTON MD May 09, 2016 17:29
[2016-05-09] MEDS: **NOTE PATIENT COMMENT** MISC XX SCH (21:00)
[2016-05-09 22:00] VITALS: BP 113/55
[2016-05-10 06:00] VITALS: BP 90/44
[2016-05-10 06:47] LABS: MEAN CORPUSCULAR HEMOGLOBIN 31.2 pg (27.0-33.0); MEAN CORPUSCULAR HGB CONC 31.2 g/dl (32.0-36.5); MEAN CORPUSCULAR VOLUME 99.8 fl (80.0-96.0); RED CELL DISTRIBUTION WIDTH 17.6 % (11.5-14.5)
[2016-05-10 06:54] LABS: CALCIUM LEVEL 8.8 MG/DL (8.8-10.2); CREATININE FOR GFR 1.32 MG/DL (0.55-1.02); GLOMERULAR FILTRATION RATE 42.9 (>45); PHOSPHORUS LEVEL 3.7 MG/DL (2.5-4.9); POTASSIUM SERUM 3.8 MEQ/L (3.5-5.1)
[2016-05-10] MEDS: IPRATROPIUM 0.5MG/ALBUTEROL 2.5MG INH SOL UD 3ML (DUONEB)(J7620) NEB SCH ×4 (07:16→20:46)
[2016-05-10] MEDS: TIOTROPIUM INHALER/CAPSULE (SPIRIVA) INH SCH (07:16)
[2016-05-10] MEDS: BREO ELLIPTA INH SCH (07:16)
[2016-05-10] MEDS: HumaLOG INSULIN (NovoLOG) PER UNIT SC SCH ×4 (08:15→21:00)
[2016-05-10] MEDS: ASCORBIC ACID 500 MG TAB PO SCH ×2 (08:15→16:46)
[2016-05-10] MEDS: POTASSIUM CHLORIDE 10 MEQ SR TABLET PO SCH ×3 (08:15→21:29)
[2016-05-10] MEDS: FERROUS SULFATE 325MG TAB PO SCH (08:15)
[2016-05-10] MEDS: ATORVASTATIN 20 MG TAB PO SCH (08:15)
[2016-05-10] MEDS: TORSEMIDE 20 MG TAB PO SCH ×2 (08:16→16:46)
[2016-05-10] MEDS: LIDOCAINE 5% (LIDODERM) PATCH TD SCH (08:16)
[2016-05-10] MEDS: SUCRALFATE 1 GM TAB PO SCH ×3 (08:17→16:46)
[2016-05-10] MEDS: MULTIVITAMINS/MINERALS THERAP 1 TAB PO SCH (08:17)
[2016-05-10] MEDS: ASPIRIN 81 MG ENTERIC TAB PO SCH (08:17)
[2016-05-10] MEDS: METOPROLOL TART 12.5 MG PER 1/2 TAB PO SCH ×2 (08:17→21:00)
[2016-05-10] MEDS: SPIRONOLACTONE 25 MG TAB PO SCH ×2 (08:17→16:45)
[2016-05-10] MEDS: metOLazone 2.5 MG TAB PO SCH (08:18)
[2016-05-10] MEDS: PANTOPRAZOLE 40MG TAB (PROTONIX) PO SCH (08:18)
[2016-05-10] MEDS: DABIGATRAN ETEXILATE 75 MG CAP (PRADAXA) PO SCH ×2 (08:18→21:30)
[2016-05-10] MEDS: NYSTATIN 100,000 UNITS/GM TOPICAL PWD 15 GM TOP SCH ×2 (08:19→21:00)
--- NOTE | 2016-05-10 12:08 | IPNPDOC ---
Date of Service/Time Mar 24, 2016 at 13:00 Progress Note DATE OF SERVICE: 05/10/2016 SUBJECTIVE: Patient was seen this morning at bedside. No acute overnight issues. She states that she is feeling well. She was all packed up and ready to go home however she found out that she does not have power in her home. She uses an electric heater and therefore must stay another day in the hospital. She denies any acute complaints. No chest pain or shortness of breath. No nausea , vomiting, abdominal pain or diarrhea. No fevers or chills. No complaints of recurrent bleeding. Lower extremity edema improved. OBJECTIVE: Vital Signs Date Time Temp Pulse Resp B/P Pulse Ox O2 Delivery O2 Flow Rate FiO2 05/10/16 08:17 79 90/44 05/10/16 08:00 Nasal Cannula 2.0 05/10/16 06:00 98.2 15 97 I&O- Last 24 Hours up to 6 AM 05/10/16 06:00 Intake Total 1440 ml Output Total 3400 ml Balance -1960 ml GENERAL: Patient is alert and oriented, in no acute distress, sitting up in chair. HEENT: Normocephalic, atraumatic. Extraocular muscles are intact. Moist mucosa. NECK: Supple. Jugular veins are not significantly elevated. HEART: Normal S1-S2. Irregularly irregular. I did not appreciate a murmur. LUNGS: Good air movement bilaterally. No distinct rales, rhonchi or wheezing appreciated. ABDOMEN: Morbidly obese. Soft. Nontender. Bowel sounds are present. EXTREMITIES: Patient has 1+ lower extremity edema. No cyanosis. Feet are warm and dry. She does have some erythema and dryness of lower extremity. NEUROLOGIC: No focal deficits. LABORATORY DATA: 05/10/16 06:20 Albumin 3.0L, Anion Gap 6L, Calcium Level 8.8, Glomerular Filtration Rate 42.9L , Phosphorus Level 3.7, Red Blood Count 2.80 L, Mean Corpuscular Volume 99.8 H, Mean Corpuscular Hemoglobin 31.2, Mean Corpuscular Hemoglobin Concentration 31.2 L, Red Cell Distribution Width 17.6 H ASSESSMENT AND PLAN: Ms. Magaña is a 66-year-old female with past medical history significant for morbid obesity, chronic systolic and diastolic congestive heart failure, being followed for congestive heart failure (CHF) and fluid overload. 1. Acute on chronic systolic and diastolic congestive heart failure and fluid overload. Patient has been diuresing well. Volume status appears better compensated. Renal function improved. No adjustments are being made to her medications as she remains on torsemide 40 mg twice daily, metolazone 2.5 mg daily, and spironolactone 25 mg twice daily. Electrolytes are stable. 2. Anemia in chronic kidney disease. Hemoglobin is currently stable. She is status post two units of red blood cells on 05/04/2016. 3. Bilateral lower extremity edema. Improving with current regimen of diuretics. Continue to elevate legs. 4. Morbid obesity, which complicates care. DISPOSITION: Volume status and renal function are stable. Patient is able to be discharged to follow-up with nephrology in 2 weeks. GME ATTESTATION GME ATTESTATION My preceptor for this patient encounter was physically present in the building during the encounter and was fully available. As needed, all aspects of the patient interview, examination, medical decision making process, and medical care plan development were reviewed and approved by the preceptor. Preceptor is aware and concurs with the plan as stated in the body of this note and will attest to such by his/her cosignature. ELAINA DAILY DO May 10, 2016 12:08
--- NOTE | 2016-05-10 12:57 | CR ---
DATE OF CONSULTATION: 05/08/2016 66-year white female admitted to [facility] on 03/24/2016. The patient has numerous multiple medical problems, includin. History of myocardial infarction, status post two stents placed. 2. Congestive heart failure (CHF). 3. Chronic obstructive pulmonary disease (COPD). 4. Diabetes mellitus. 5. Hypercholesterolemia. 6. Hypertension. 7. Morbid obesity. The patient is being seen for recent chronic anemia requiring at least 5 units of packed cells over the last 5-7 days. MEDICATIONS: Include: - Ventolin - aspirin - atorvastatin - Pradaxa 150 mg by mouth twice a day for atrial fibrillation - Flonase - Lasix - Breo - Lisinopril - famotidine - metformin for diabetes ALLERGIES: The patient is allergic to SULFA. PAST MEDICAL HISTORY: Positive for: 1. COPD on 3 liters per minute 2. Diastolic congestive heart failure grade 2. 3. Obstructive sleep apnea. 4. Coronary artery disease with two stents. 5. Dyslipidemia. 6. Hypertension. 7. Morbid obesity. 8. History of bowel resection for ischemic bowel. PAST SURGICAL HISTORY: 1. Colon resection secondary to ischemia. 2. Hiatal hernia repair times two. 3. Right lumpectomy. SOCIAL HISTORY: The patient denies cigarettes since 2014. Alcohol: The patient's last drink was 2004. REVIEW OF SYSTEMS: Noncontributory to the above problem. Laboratory studies show on 05/08/2016 white count 8800, hemoglobin and hematocrit are 8 and 26. The patient has be given 5 units of packed cells. BUN is 50, creatinine 1.25, albumin 2.8, INR was 1.62 down from 1.97. The patient is not on anticoagulation. CT scan of the abdomen and pelvis on 04/11/2016 showed hepatomegaly with irregular contour of the liver, ascites and gallstones. PHYSICAL EXAMINATION: GENERWAL: She is a morbidly obese white female in no acute distress. CHEST: Chest is clear to auscultation. CARDIOVASCULAR: Cardiovascular exam showed an irregular rhythm. No murmurs or gallops. No physiological split, S1, S2. ABDOMEN: Soft, nontender. No masses, guarding, rebound. Hepatosplenomegaly. Bowel sounds positive. ANALYSIS: 1. GI bleeding of unknown etiology. At the present time, we will to set the patient up for upper endoscopy in the main operating room to rule out varices and hypertensive portal gastropathy. 2. Continue to transfuse. 3. Discuss with cardiology the possible need for Pradaxa and/or possibility of switching to something else to put her at less risk for bleeding.
[2016-05-10 14:00] VITALS: BP 118/59
[2016-05-10] MEDS: PERCOCET 5MG/325MG TAB PO PRN (16:45)
--- NOTE | 2016-05-10 16:59 | IPNPDOC ---
Assessment/Plan Date Seen The patient was seen on 05/10/16. Problems Problems: (1) Chronic anemia Status: Chronic Response to Treatment: Stable Problem Text: normocytic anemia received venofer, prbc and darbapoietin Recently transfused 2 units on 05/04/16 s/p EGD no active bleed on 05/08/[address] Ceballos of GI-he has recommended resumption of her previous medications We will restart the patient on Pradaxa 150 mg twice a day given the patient's high chads Vasc score We will continue to monitor her hemoglobin level. (2) Anasarca Status: Acute Response to Treatment: Improving Problem Text: due to diastolic congestive heart failure. Patient has been managed on multiple diuretics including torsemide, spironolactone, metolazone by nephrology She has been maintained on a negative fluid balance level over the last few days and her volume status has improved considerably. (3) CAP (community acquired pneumonia) Status: Resolved Problem Text: Status post completion of trial of ceftriaxone. (4) Constipation Status: Resolved Problem Text: on bowel regimen (5) JANE (obstructive sleep apnea) Status: Chronic (6) Morbid obesity Status: Chronic (7) Diabetes Status: Chronic (8) Hypertension Status: Chronic (9) COPD (chronic obstructive pulmonary disease) Status: Chronic Problem Text: continue home meds. Respiratory status has returned back to baseline status after adequate diuresis and trial of antibiotics for community acquired pneumonia. (10) CAD (coronary artery disease) Status: Chronic (11) Hyperlipidemia Status: Chronic (12) Mitral stenosis and incompetence Status: Chronic (13) Pulmonary hypertension Status: Chronic (14) Afib Status: Chronic Problem Text: Continue on Dabigatran as there was no source of bleed found on EGD on 05/08/2016 (15) Allergy Status: Chronic Problem Text: continue loratidine Plan / VTE VTE Prophylaxis Ordered?: Yes Plan / Urinary Catheter Reason for insertion/continuin: Other-document below Subjective Review of Systems CC/HPI The patient is a 66-year-old female admitted with a reason for visit of Acute Respiratory Distress. General: Denies: Chills, Night Sweats Constitutional: Denies: Chills, Fever Eyes: Denies: Pain, Vision change ENT: Denies: Ear Pain, Head Aches Skin: Denies: Lesions, Rash Pulmonary: Denies: Cough, Dyspnea Cardiovascular: Denies: Chest Pain, Palpitations Gastrointestinal: Denies: Nausea, Vomiting Genitourinary: Denies: Dysuria, Frequency Hematologic: Denies: Bleeding Excessively, Bruising Objective Physical Examination General Exam: Positive: Alert, Cooperative, No Acute Distress Eye Exam: Positive: Conjunctiva & lids normal, EOMI, PERRLA, Negative: Sclera icteric ENT Exam: Positive: Atraumatic, Mucous membr. moist/pink, Pharynx Normal Neck Exam: Positive: Supple, Negative: JVD, thyromegaly Chest Exam: Positive: Diminished Heart Exam: Positive: Normal S1, Normal S2, Rate Normal, Regular Rhythm Abdomen Exam: Positive: Normal bowel sounds, Soft, Negative: Hepatospenomegaly, Tenderness Extremity Exam: Positive: Other (chronic venous static changes noted.), Swelling, Negative: Tenderness Vital Signs/I&O Vital Signs Date Time Temp Pulse Resp B/P Pulse Ox O2 Delivery O2 Flow Rate FiO2 05/10/16 16:45 16 05/10/16 14:00 97.9 85 118/59 91 Nasal Cannula 2.0 I&O- Last 24 Hours up to 6 AM 05/10/16 06:00 Intake Total 1440 ml Output Total 3400 ml Balance -1960 ml Laboratory Data Labs 24H Laboratory Tests 2 05/09/16 20:38: Bedside Glucose (Misc Panel) 236H 05/10/16 06:20: Albumin 3.0L, Blood Urea Nitrogen 46H, Creatinine 1.32H, Sodium Level 136, Potassium Level 3.8, Chloride Level 93L, Carbon Dioxide Level 37H, Anion Gap 6L , Calcium Level 8.8, Glomerular Filtration Rate 42.9L, Phosphorus Level 3.7 05/10/16 11:43: Bedside Glucose (Misc Panel) 194H CBC/BMP Laboratory Tests 05/10/16 06:20 Anion Gap 6 L, Red Blood Count 2.80 L, Mean Corpuscular Volume 99.8 H, Mean Corpuscular Hemoglobin 31.2, Mean Corpuscular Hemoglobin Concent 31.2 L, Red Cell Distribution Width 17.6 H FSBS Laboratory Tests Test 05/09/16 20:38 05/10/16 11:43 Range/Units Bedside Glucose (Misc Panel) 236 194 80-115 MG/DL Microbiology Microbiology 05/06/16 Stool Occult Blood (TESS) - Final, Complete 05/05/16 Stool Occult Blood (TESS) - Final, Complete TRACIE BRITTON MD May 10, 2016 16:59
[2016-05-10] MEDS: **NOTE PATIENT COMMENT** MISC XX SCH (21:00)
[2016-05-10 22:00] VITALS: BP 105/61
[2016-05-11 06:00] VITALS: BP 92/51
[2016-05-11 07:01] LABS: MEAN CORPUSCULAR HGB CONC 30.1 g/dl (32.0-36.5); MEAN CORPUSCULAR VOLUME 99.7 fl (80.0-96.0); RED CELL DISTRIBUTION WIDTH 17.3 % (11.5-14.5)
[2016-05-11 07:09] LABS: CALCIUM LEVEL 8.5 MG/DL (8.8-10.2); CREATININE FOR GFR 1.23 MG/DL (0.55-1.02); GLOMERULAR FILTRATION RATE 46.5 (>45); PHOSPHORUS LEVEL 3.7 MG/DL (2.5-4.9)
[2016-05-11] MEDS ORDERED: POTASSIUM CHLORIDE 10 MEQ SR TABLET PO ONE (08:00)
[2016-05-11] MEDS: IPRATROPIUM 0.5MG/ALBUTEROL 2.5MG INH SOL UD 3ML (DUONEB)(J7620) NEB SCH ×4 (08:00→20:55)
[2016-05-11] MEDS: METOPROLOL TART 12.5 MG PER 1/2 TAB PO SCH ×2 (09:00→21:00)
[2016-05-11] MEDS: LIDOCAINE 5% (LIDODERM) PATCH TD SCH (09:15)
[2016-05-11] MEDS: metOLazone 2.5 MG TAB PO SCH (09:16)
[2016-05-11] MEDS: SPIRONOLACTONE 25 MG TAB PO SCH ×2 (09:16→18:06)
[2016-05-11] MEDS: TORSEMIDE 20 MG TAB PO SCH ×2 (09:16→18:06)
[2016-05-11] MEDS: DABIGATRAN ETEXILATE 75 MG CAP (PRADAXA) PO SCH ×2 (09:16→21:59)
[2016-05-11] MEDS: ASCORBIC ACID 500 MG TAB PO SCH ×2 (09:16→18:06)
[2016-05-11] MEDS: SUCRALFATE 1 GM TAB PO SCH ×3 (09:17→18:06)
[2016-05-11] MEDS: ATORVASTATIN 20 MG TAB PO SCH (09:17)
[2016-05-11] MEDS: FERROUS SULFATE 325MG TAB PO SCH (09:17)
[2016-05-11] MEDS: ASPIRIN 81 MG ENTERIC TAB PO SCH (09:17)
[2016-05-11] MEDS: POTASSIUM CHLORIDE 10 MEQ SR TABLET PO SCH ×3 (09:17→22:00)
[2016-05-11] MEDS: PANTOPRAZOLE 40MG TAB (PROTONIX) PO SCH (09:18)
[2016-05-11] MEDS: HumaLOG INSULIN (NovoLOG) PER UNIT SC SCH ×4 (09:18→21:00)
[2016-05-11] MEDS: MULTIVITAMINS/MINERALS THERAP 1 TAB PO SCH (09:18)
[2016-05-11] MEDS: NYSTATIN 100,000 UNITS/GM TOPICAL PWD 15 GM TOP SCH ×2 (09:20→21:00)
[2016-05-11] MEDS: TIOTROPIUM INHALER/CAPSULE (SPIRIVA) INH SCH (09:35)
[2016-05-11] MEDS: BREO ELLIPTA INH SCH (09:37)
--- NOTE | 2016-05-11 13:01 | IPNPDOC ---
Date of Service/Time Mar 24, 2016 at 13:00 Progress Note DATE OF SERVICE: 05/11/2016 SUBJECTIVE: Patient was seen this morning at bedside. No acute overnight issues. She states that she is feeling well. Her power is back on and it looks like she will be able to go home today. She denies any acute complaints. No chest pain or shortness of breath. No nausea, vomiting, abdominal pain or diarrhea. No fevers or chills. No complaints of recurrent bleeding. Lower extremity edema improved. OBJECTIVE: Vital Signs Date Time Temp Pulse Resp B/P Pulse Ox O2 Delivery O2 Flow Rate FiO2 05/11/16 09:00 89 92/51 05/11/16 08:00 Nasal Cannula 2.0 05/11/16 06:00 98.0 18 90 I&O- Last 24 Hours up to 6 AM 05/11/16 06:00 Intake Total 840 ml Output Total 3400 ml Balance -2560 ml GENERAL: Patient is alert and oriented, in no acute distress, sitting up in chair. HEENT: Normocephalic, atraumatic. Extraocular muscles are intact. Moist mucosa. NECK: Supple. Jugular veins are not significantly elevated. HEART: Normal S1-S2. Irregularly irregular. I did not appreciate a murmur. LUNGS: Good air movement bilaterally. No distinct rales, rhonchi or wheezing appreciated. ABDOMEN: Morbidly obese. Soft. Nontender. Bowel sounds are present. EXTREMITIES: Patient continues to have lower extremity edema, but improved. No cyanosis. Feet are warm and dry. NEUROLOGIC: No focal deficits. LABORATORY DATA: 05/11/16 06:42 Red Blood Count 2.68 L, Mean Corpuscular Volume 99.7 H, Mean Corpuscular Hemoglobin 30.0, Mean Corpuscular Hemoglobin Concent 30.1 L, Red Cell Distribution Width 17.3 H, Albumin 3.0L, Anion Gap 6L, Calcium Level 8.5L, Glomerular Filtration Rate 46.5, Phosphorus Level 3.7 ASSESSMENT AND PLAN: Ms. Magaña is a 66-year-old female with past medical history significant for morbid obesity, chronic systolic and diastolic congestive heart failure, being followed for congestive heart failure (CHF) and fluid overload. 1. Acute on chronic systolic and diastolic congestive heart failure and fluid overload. Patient has been diuresing well. Volume status appears better compensated. Renal function improved. No adjustments are being made to her medications as she remains on torsemide 40 mg twice daily, metolazone 2.5 mg daily, and spironolactone 25 mg twice daily. She should be discharged with this regimen. 2. Hypokalemia. Potassium is decreased at 3.0. Additional oral supplementation was given. She is to continue with potassium 20 mg 3 times a day. 3. Anemia in chronic kidney disease. Hemoglobin is slightly decreased at 8.0. No intervention needed at this time. She is status post two units of red blood cells on 05/04/2016. 4. Bilateral lower extremity edema. Improving with current regimen of diuretics. Continue to elevate legs. DISPOSITION: Volume status and renal function are stable. Patient can be discharged to follow-up with nephrology in 2 weeks. GME ATTESTATION GME ATTESTATION My preceptor for this patient encounter was physically present in the building during the encounter and was fully available. As needed, all aspects of the patient interview, examination, medical decision making process, and medical care plan development were reviewed and approved by the preceptor. Preceptor is aware and concurs with the plan as stated in the body of this note and will attest to such by his/her cosignature. ELAINA DAILY DO May 11, 2016 13:01
[2016-05-11] MEDS: PERCOCET 5MG/325MG TAB PO PRN ×2 (13:09→21:59)
[2016-05-11 14:00] VITALS: BP 103/55
--- NOTE | 2016-05-11 14:35 | IPNPDOC ---
Assessment/Plan Date Seen The patient was seen on 05/11/16. Problems Problems: (1) Chronic anemia Status: Chronic Response to Treatment: Stable Problem Text: normocytic anemia received venofer, prbc and darbapoietin Recently transfused 2 units on 05/04/16 s/p EGD no active bleed on 05/08/[address] Ceballos of GI-he has recommended resumption of her previous medications Restarted the patient on Pradaxa 150 mg twice a day given the patient's high chads Vasc score and no active bleeding noted on EGD We will continue to monitor her hemoglobin level. (2) Anasarca Status: Chronic Response to Treatment: Improving Problem Text: due to diastolic congestive heart failure. Patient has been managed on multiple diuretics including torsemide, spironolactone, metolazone by nephrology She has been maintained on a negative fluid balance level over the last few days and her volume status has improved considerably. (3) CAP (community acquired pneumonia) Status: Resolved Problem Text: Status post completion of trial of ceftriaxone. (4) Constipation Status: Resolved Problem Text: on bowel regimen (5) JNAE (obstructive sleep apnea) Status: Chronic (6) Morbid obesity Status: Chronic (7) Diabetes Status: Chronic (8) Hypertension Status: Chronic (9) COPD (chronic obstructive pulmonary disease) Status: Chronic Problem Text: continue home meds. Respiratory status has returned back to baseline status after adequate diuresis and trial of antibiotics for community acquired pneumonia. (10) CAD (coronary artery disease) Status: Chronic (11) Hyperlipidemia Status: Chronic (12) Mitral stenosis and incompetence Status: Chronic (13) Pulmonary hypertension Status: Chronic (14) Afib Status: Chronic Problem Text: Continue on Dabigatran as there was no source of bleed found on EGD on 05/08/2016 (15) Allergy Status: Chronic Problem Text: continue loratidine Plan / VTE VTE Prophylaxis Ordered?: Yes Plan / Urinary Catheter Reason for insertion/continuin: Other-document below Subjective Review of Systems CC/HPI The patient is a 66-year-old female admitted with a reason for visit of Acute Respiratory Distress. General: Denies: Chills, Night Sweats Constitutional: Denies: Chills, Fever Eyes: Denies: Pain, Vision change ENT: Denies: Ear Pain, Head Aches Skin: Denies: Lesions, Rash Pulmonary: Denies: Cough, Dyspnea Cardiovascular: Denies: Chest Pain, Palpitations Gastrointestinal: Denies: Abdominal Pain, Nausea, Vomiting Objective Physical Examination General Exam: Positive: Alert, Cooperative, No Acute Distress Eye Exam: Positive: Conjunctiva & lids normal, EOMI, PERRLA, Negative: Sclera icteric ENT Exam: Positive: Atraumatic, Mucous membr. moist/pink, Pharynx Normal Neck Exam: Positive: Supple, Negative: JVD, thyromegaly Chest Exam: Positive: Diminished Heart Exam: Positive: Normal S1, Normal S2, Rate Normal, Regular Rhythm Abdomen Exam: Positive: Normal bowel sounds, Soft, Negative: Hepatospenomegaly, Tenderness Extremity Exam: Positive: Other (chronic venous static changes noted.), Swelling, Negative: Tenderness Vital Signs/I&O Vital Signs Date Time Temp Pulse Resp B/P Pulse Ox O2 Delivery O2 Flow Rate FiO2 05/11/16 13:09 18 91 05/11/16 09:00 89 92/51 05/11/16 08:00 Nasal Cannula 2.0 05/11/16 06:00 98.0 I&O- Last 24 Hours up to 6 AM 05/11/16 06:00 Intake Total 840 ml Output Total 3400 ml Balance -2560 ml Laboratory Data Labs 24H Laboratory Tests 2 05/10/16 17:14: Bedside Glucose (Misc Panel) 153H 05/10/16 20:45: Bedside Glucose (Misc Panel) 178H 05/11/16 06:42: Albumin 3.0L, Blood Urea Nitrogen 49H, Creatinine 1.23H, Sodium Level 136, Potassium Level 3.0#L, Chloride Level 94L, Carbon Dioxide Level 36H, Anion Gap 6L, Calcium Level 8.5L, Glomerular Filtration Rate 46.5, Phosphorus Level 3.7 05/11/16 12:06: Bedside Glucose (Misc Panel) 175H CBC/BMP Laboratory Tests 05/11/16 06:42 Anion Gap 6 L, Red Blood Count 2.68 L, Mean Corpuscular Volume 99.7 H, Mean Corpuscular Hemoglobin 30.0, Mean Corpuscular Hemoglobin Concent 30.1 L, Red Cell Distribution Width 17.3 H FSBS Laboratory Tests Test 05/10/16 17:14 05/10/16 20:45 05/11/16 12:06 Range/Units Bedside Glucose (Misc Panel) 153 178 175 80-115 MG/DL Microbiology Microbiology 05/06/16 Stool Occult Blood (TESS) - Final, Complete 05/05/16 Stool Occult Blood (TESS) - Final, Complete TRACIE BRITTON MD May 11, 2016 14:35
[2016-05-11] MEDS: MIRALAX *UNIT DOSE* 17GM PACKET PO PRN (16:09)
[2016-05-11] MEDS: **NOTE PATIENT COMMENT** MISC XX SCH (21:00)
[2016-05-11 22:00] VITALS: BP 115/56
[2016-05-12 06:00] VITALS: BP 88/46
[2016-05-12 06:56] LABS: MEAN CORPUSCULAR HEMOGLOBIN 29.5 pg (27.0-33.0); MEAN CORPUSCULAR VOLUME 98.4 fl (80.0-96.0); RED CELL DISTRIBUTION WIDTH 18.7 % (11.5-14.5); WHITE BLOOD COUNT 9.4 K/mm3 (4.0-10.0)
[2016-05-12] MEDS: IPRATROPIUM 0.5MG/ALBUTEROL 2.5MG INH SOL UD 3ML (DUONEB)(J7620) NEB SCH ×4 (08:00→20:00)
[2016-05-12] MEDS: TIOTROPIUM INHALER/CAPSULE (SPIRIVA) INH SCH (08:34)
[2016-05-12] MEDS: BREO ELLIPTA INH SCH (08:34)
[2016-05-12 08:53] LABS: CALCIUM LEVEL 8.5 MG/DL (8.8-10.2); CREATININE FOR GFR 1.31 MG/DL (0.55-1.02); GLOMERULAR FILTRATION RATE 43.2 (>45); PHOSPHORUS LEVEL 4.1 MG/DL (2.5-4.9); POTASSIUM SERUM 3.5 MEQ/L (3.5-5.1)
[2016-05-12] MEDS: LIDOCAINE 5% (LIDODERM) PATCH TD SCH (09:25)
[2016-05-12] MEDS: PANTOPRAZOLE 40MG TAB (PROTONIX) PO SCH (09:25)
[2016-05-12] MEDS: ATORVASTATIN 20 MG TAB PO SCH (09:25)
[2016-05-12] MEDS: TORSEMIDE 20 MG TAB PO SCH ×2 (09:25→17:01)
[2016-05-12] MEDS: HumaLOG INSULIN (NovoLOG) PER UNIT SC SCH ×4 (09:25→21:00)
[2016-05-12] MEDS: MULTIVITAMINS/MINERALS THERAP 1 TAB PO SCH (09:26)
[2016-05-12] MEDS: POTASSIUM CHLORIDE 10 MEQ SR TABLET PO SCH ×3 (09:26→19:35)
[2016-05-12] MEDS: ASCORBIC ACID 500 MG TAB PO SCH ×2 (09:26→17:56)
[2016-05-12] MEDS: SUCRALFATE 1 GM TAB PO SCH ×3 (09:26→17:00)
[2016-05-12] MEDS: ASPIRIN 81 MG ENTERIC TAB PO SCH (09:26)
[2016-05-12] MEDS: SPIRONOLACTONE 25 MG TAB PO SCH ×2 (09:26→17:00)
[2016-05-12] MEDS: NYSTATIN 100,000 UNITS/GM TOPICAL PWD 15 GM TOP SCH ×2 (09:27→19:35)
[2016-05-12] MEDS: metOLazone 2.5 MG TAB PO SCH (09:27)
[2016-05-12] MEDS: FERROUS SULFATE 325MG TAB PO SCH (09:27)
[2016-05-12] MEDS: METOPROLOL TART 12.5 MG PER 1/2 TAB PO SCH ×2 (09:28→21:00)
[2016-05-12] MEDS: LORATADINE 10 MG TAB PO PRN (09:43)
[2016-05-12] MEDS: DOCUSATE SODIUM 100 MG CAP PO PRN (09:43)
--- NOTE | 2016-05-12 10:47 | IPNPDOC ---
Date of Service/Time Mar 24, 2016 at 13:00 Progress Note DATE OF SERVICE: 05/12/2016 SUBJECTIVE: Patient was seen this morning at bedside. She states that she is feeling well. There are still some home issues with her gas stove and water that needs to be sorted out before she can go home. She denies any acute complaints. No chest pain or shortness of breath. She is on her baseline oxygen requirement. No nausea, vomiting, abdominal pain or diarrhea. No fevers or chills. OBJECTIVE: Vital Signs Date Time Temp Pulse Resp B/P Pulse Ox O2 Delivery O2 Flow Rate FiO2 05/12/16 09:28 68 88/46 05/12/16 06:00 98.4 16 98 Nasal Cannula 2.0 I&O- Last 24 Hours up to 6 AM 05/12/16 06:00 Intake Total 1320 ml Output Total 5600 ml Balance -4280 ml GENERAL: Patient is alert and oriented, in no acute distress, sitting up in chair. HEENT: Normocephalic, atraumatic. Extraocular muscles are intact. Moist mucosa. NECK: Supple. Jugular veins are not significantly elevated. HEART: Normal S1-S2. Irregularly irregular. I did not appreciate a murmur. LUNGS: Good air movement bilaterally. No distinct rales, rhonchi or wheezing appreciated. ABDOMEN: Morbidly obese. Soft. Nontender. Bowel sounds are present. EXTREMITIES: Patient continues to have lower extremity edema, but improved. No cyanosis. Feet are warm and dry. NEUROLOGIC: No focal deficits. LABORATORY DATA: 05/12/16 06:37 05/12/16 06:38 Red Blood Count 2.61 L, Mean Corpuscular Volume 98.4 H, Mean Corpuscular Hemoglobin 29.5, Mean Corpuscular Hemoglobin Concentration 30.0 L, Red Cell Distribution Width 18.7 H, Anion Gap 9 ASSESSMENT AND PLAN: Ms. Magaña is a 66-year-old female with past medical history significant for morbid obesity, chronic systolic and diastolic congestive heart failure, being followed for congestive heart failure (CHF) and fluid overload. 1. Acute on chronic systolic and diastolic congestive heart failure and fluid overload. Patient has been diuresing well. Volume status appears fairly compensated. Renal function is stable. Patient should be discharged on current regimen of torsemide 40 mg twice daily, metolazone 2.5 mg daily, and spironolactone 25 mg twice daily. 2. Hypokalemia. Resolved. She should be on potassium 20 mg three times a day at home. 3. Anemia in chronic kidney disease. Hemoglobin is decreased at 7.7. She should receive 2 units of packed red blood cells today. No signs of gross bleeding, however she is on Pradaxa . She also received two units of red blood cells on 05/04/2016. 4. Bilateral lower extremity edema. Improving with current regimen of diuretics. Continue to elevate legs. DISPOSITION: Volume status and renal function are stable. Once home situation is resolved, she can be discharged to follow-up with nephrology in 2 weeks. GME ATTESTATION GME ATTESTATION My preceptor for this patient encounter was physically present in the building during the encounter and was fully available. As needed, all aspects of the patient interview, examination, medical decision making process, and medical care plan development were reviewed and approved by the preceptor. Preceptor is aware and concurs with the plan as stated in the body of this note and will attest to such by his/her cosignature. ELAINA DAILY DO May 12, 2016 10:46
[2016-05-12] MEDS: PERCOCET 5MG/325MG TAB PO PRN ×2 (13:44→19:34)
[2016-05-12 14:00] VITALS: BP 93/50
--- NOTE | 2016-05-12 15:04 | IPNPDOC ---
Assessment/Plan Date Seen The patient was seen on 05/12/16. Problems Problems: (1) Chronic anemia Status: Chronic Response to Treatment: Stable Problem Text: normocytic anemia received venofer, prbc and darbapoietin Recently transfused 2 units on 05/04/16, however has received 5 units total since 04/18/2016 s/p EGD no active bleed on 05/08/[address] Ceballos of GI The patient's hemoglobin has drifted down to 7.7 today. We will order an additional 2 units of packed red blood cells. She has had no active bleeding since her last transfusion, however she has had 2 stool occult positive samples Given the fact that the patient has had multiple blood transfusions over the last 3 weeks, with positive stool occult samples we will discontinue the patient 's Pradaxa. I have discussed this with the patient's records coordinator Dr. Choudhary and he agrees with the above. The patient will need an outpatient colonoscopy to further assess the etiology of her anemia. At which time, she can be reassessed for resumption of her anticoagulation. I did explain to the patient in detail regarding the risks associated with continuing anticoagulation which includes from bleeding or a cardiac event from anemia. In addition, I did also explain to the patient that being off anticoagulation increases her risk of a stroke. However, at this time the patient is at higher risk for bleed as evidenced by her perpetual anemia, and thus the anticoagulation needs to be stopped at this time. The patient verbalized understanding of this and states that she will follow up as an outpatient for further investigation of her GI bleeding. (2) Anasarca Status: Chronic Response to Treatment: Improving Problem Text: due to diastolic congestive heart failure. Patient has been managed on multiple diuretics including torsemide, spironolactone, metolazone by nephrology She has been maintained on a negative fluid balance level over the last few days and her volume status has improved considerably. (3) CAP (community acquired pneumonia) Status: Resolved Problem Text: Status post completion of trial of ceftriaxone. (4) Constipation Status: Resolved Problem Text: on bowel regimen (5) JANE (obstructive sleep apnea) Status: Chronic (6) Morbid obesity Status: Chronic (7) Diabetes Status: Chronic (8) Hypertension Status: Chronic (9) COPD (chronic obstructive pulmonary disease) Status: Chronic Problem Text: continue home meds. Respiratory status has returned back to baseline status after adequate diuresis and trial of antibiotics for community acquired pneumonia. (10) CAD (coronary artery disease) Status: Chronic (11) Hyperlipidemia Status: Chronic (12) Mitral stenosis and incompetence Status: Chronic (13) Pulmonary hypertension Status: Chronic (14) Afib Status: Chronic Problem Text: Pradaxa discontinued as noted above (15) Allergy Status: Chronic Problem Text: continue loratidine Plan / VTE VTE Prophylaxis Ordered?: Yes Plan / Urinary Catheter Reason for insertion/continuin: Other-document below Subjective Review of Systems CC/HPI The patient is a 66-year-old female admitted with a reason for visit of Acute Respiratory Distress. General: Denies: Chills, Night Sweats Constitutional: Denies: Chills, Fever Eyes: Denies: Pain, Vision change ENT: Denies: Ear Pain, Head Aches Skin: Denies: Lesions, Rash Pulmonary: Denies: Cough, Dyspnea Cardiovascular: Denies: Chest Pain, Palpitations Gastrointestinal: Denies: Nausea, Vomiting Hematologic: Denies: Bleeding Excessively, Bruising Objective Physical Examination General Exam: Positive: Alert, Cooperative, No Acute Distress Eye Exam: Positive: Conjunctiva & lids normal, EOMI, PERRLA, Negative: Sclera icteric ENT Exam: Positive: Atraumatic, Mucous membr. moist/pink, Pharynx Normal Neck Exam: Positive: Supple, Negative: JVD, thyromegaly Chest Exam: Positive: Diminished Heart Exam: Positive: Normal S1, Normal S2, Rate Normal, Regular Rhythm Abdomen Exam: Positive: Normal bowel sounds, Soft, Negative: Hepatospenomegaly, Tenderness Extremity Exam: Positive: Other (chronic venous static changes noted.), Swelling, Negative: Tenderness Vital Signs/I&O Vital Signs Date Time Temp Pulse Resp B/P Pulse Ox O2 Delivery O2 Flow Rate FiO2 05/12/16 14:25 20 05/12/16 14:00 98.2 90 93/50 100 Nasal Cannula 2.0 I&O- Last 24 Hours up to 6 AM 05/12/16 06:00 Intake Total 1320 ml Output Total 5600 ml Balance -4280 ml Laboratory Data Labs 24H Laboratory Tests 2 05/11/16 16:48: Bedside Glucose (Misc Panel) 183H 05/11/16 21:56: Bedside Glucose (Misc Panel) 158H 05/12/16 06:33: Bedside Glucose (Misc Panel) 144H 05/12/16 06:37: Albumin 3.0L, Blood Urea Nitrogen 52H, Creatinine 1.31H, Sodium Level 139, Potassium Level 3.5, Chloride Level 96L, Carbon Dioxide Level 34H, Anion Gap 9, Calcium Level 8.5L, Glomerular Filtration Rate 43.2L, Phosphorus Level 4.1 05/12/16 08:57: Bedside Glucose (Misc Panel) 204H 05/12/16 12:10: Bedside Glucose (Misc Panel) 159H CBC/BMP Laboratory Tests 05/12/16 06:37 Anion Gap 9 05/12/16 06:38 Red Blood Count 2.61 L, Mean Corpuscular Volume 98.4 H, Mean Corpuscular Hemoglobin 29.5, Mean Corpuscular Hemoglobin Concent 30.0 L, Red Cell Distribution Width 18.7 H FSBS Laboratory Tests Test 05/11/16 16:48 05/11/16 21:56 05/12/16 06:33 05/12/16 08:57 Range/Units Bedside Glucose (Misc Panel) 183 158 144 204 80-115 MG/DL Test 05/12/16 12:10 Range/Units Bedside Glucose (Misc Panel) 159 80-115 MG/DL Microbiology Microbiology 05/06/16 Stool Occult Blood (TESS) - Final, Complete 05/05/16 Stool Occult Blood (TESS) - Final, Complete TRACIE BRITTON MD May 12, 2016 15:04
[2016-05-12] MEDS: MIRALAX *UNIT DOSE* 17GM PACKET PO PRN (19:34)
[2016-05-12] MEDS: **NOTE PATIENT COMMENT** MISC XX SCH (19:36)
[2016-05-12 22:00] VITALS: BP 115/56
[2016-05-13 05:53] LABS: MEAN CORPUSCULAR HEMOGLOBIN 30.9 pg (27.0-33.0); MEAN CORPUSCULAR HGB CONC 31.9 g/dl (32.0-36.5); RED CELL DISTRIBUTION WIDTH 18.3 % (11.5-14.5); WHITE BLOOD COUNT 12.6 K/mm3 (4.0-10.0)
[2016-05-13 06:00] VITALS: BP 105/54
[2016-05-13 06:16] LABS: ALBUMIN 2.9 GM/DL (3.2-5.2); CALCIUM LEVEL 8.6 MG/DL (8.8-10.2); CREATININE FOR GFR 1.28 MG/DL (0.55-1.02); GLOMERULAR FILTRATION RATE 44.4 (>45); PHOSPHORUS LEVEL 3.9 MG/DL (2.5-4.9); POTASSIUM SERUM 3.4 MEQ/L (3.5-5.1)
[2016-05-13] MEDS: HumaLOG INSULIN (NovoLOG) PER UNIT SC SCH ×4 (07:30→21:46)
[2016-05-13] MEDS ORDERED: POTASSIUM CHLORIDE 10 MEQ SR TABLET PO ONE (07:45)
[2016-05-13] MEDS: METOPROLOL TART 12.5 MG PER 1/2 TAB PO SCH ×2 (09:00→21:00)
[2016-05-13] MEDS: LIDOCAINE 5% (LIDODERM) PATCH TD SCH (09:00)
[2016-05-13] MEDS: NYSTATIN 100,000 UNITS/GM TOPICAL PWD 15 GM TOP SCH ×2 (09:00→21:00)
[2016-05-13] MEDS: POTASSIUM CHLORIDE 10 MEQ SR TABLET PO SCH ×3 (09:00→21:44)
[2016-05-13] MEDS: BREO ELLIPTA INH SCH (09:25)
[2016-05-13] MEDS: TIOTROPIUM INHALER/CAPSULE (SPIRIVA) INH SCH (09:25)
[2016-05-13] MEDS: IPRATROPIUM 0.5MG/ALBUTEROL 2.5MG INH SOL UD 3ML (DUONEB)(J7620) NEB SCH ×4 (09:25→19:32)
[2016-05-13] MEDS: SUCRALFATE 1 GM TAB PO SCH ×3 (09:50→16:22)
[2016-05-13] MEDS: ATORVASTATIN 20 MG TAB PO SCH (09:51)
[2016-05-13] MEDS: TORSEMIDE 20 MG TAB PO SCH ×2 (09:51→16:22)
[2016-05-13] MEDS: FERROUS SULFATE 325MG TAB PO SCH (09:51)
[2016-05-13] MEDS: SPIRONOLACTONE 25 MG TAB PO SCH ×2 (09:52→16:21)
[2016-05-13] MEDS: ASCORBIC ACID 500 MG TAB PO SCH ×2 (09:52→16:22)
[2016-05-13] MEDS: ASPIRIN 81 MG ENTERIC TAB PO SCH (09:52)
[2016-05-13] MEDS: MULTIVITAMINS/MINERALS THERAP 1 TAB PO SCH (09:52)
[2016-05-13] MEDS: metOLazone 2.5 MG TAB PO SCH (09:53)
[2016-05-13] MEDS: PANTOPRAZOLE 40MG TAB (PROTONIX) PO SCH (09:53)
[2016-05-13] MEDS: LORATADINE 10 MG TAB PO PRN (10:02)
[2016-05-13] MEDS: DOCUSATE SODIUM 100 MG CAP PO PRN ×2 (10:02→21:44)
--- NOTE | 2016-05-13 11:52 | IPNPDOC ---
Assessment/Plan Date Seen The patient was seen on 05/13/16. Problems Problems: (1) Chronic anemia Status: Chronic Response to Treatment: Stable Problem Text: normocytic anemia received venofer, prbc and darbapoietin Recently transfused 2 units on 05/04/16, and has received 5 units total since s/p EGD no active bleed on 05/08/[address] Ceballos of GI The patient's hemoglobin drifted down to 7.7 on 05/12. Given 2 units of PRB's (7 Total Units of PRBC's now given during admission) She has had no active bleeding since her last transfusion, however she has had 2 stool occult positive samples We have discontinued the Pradaxa after discussing with Cardiology and explaining the risks and benefits associated with this with the patient Hgb stable this AM (2) Anasarca Status: Chronic Response to Treatment: Improving Problem Text: due to diastolic congestive heart failure. Patient has been managed on multiple diuretics including torsemide, spironolactone, metolazone by nephrology She has been maintained on a negative fluid balance level over the last few days and her volume status has improved considerably. (3) CAP (community acquired pneumonia) Status: Resolved Problem Text: Status post completion of trial of ceftriaxone. (4) Constipation Status: Resolved Problem Text: on bowel regimen (5) JANE (obstructive sleep apnea) Status: Chronic (6) Morbid obesity Status: Chronic (7) Diabetes Status: Chronic (8) Hypertension Status: Chronic (9) COPD (chronic obstructive pulmonary disease) Status: Chronic Problem Text: continue home meds. Respiratory status has returned back to baseline status after adequate diuresis and trial of antibiotics for community acquired pneumonia. (10) CAD (coronary artery disease) Status: Chronic (11) Hyperlipidemia Status: Chronic (12) Mitral stenosis and incompetence Status: Chronic (13) Pulmonary hypertension Status: Chronic (14) Afib Status: Chronic Problem Text: Pradaxa discontinued as noted above (15) Allergy Status: Chronic Problem Text: continue loratidine Plan / VTE VTE Prophylaxis Ordered?: Yes Plan / Urinary Catheter Reason for insertion/continuin: Other-document below Subjective Review of Systems CC/HPI The patient is a 66-year-old female admitted with a reason for visit of Acute Respiratory Distress. General: Denies: Chills, Night Sweats Constitutional: Denies: Chills, Fever Eyes: Denies: Pain, Vision change ENT: Denies: Ear Pain, Head Aches Skin: Denies: Lesions, Rash Pulmonary: Denies: Cough, Dyspnea Cardiovascular: Denies: Chest Pain, Palpitations Gastrointestinal: Denies: Abdominal Pain, Nausea, Vomiting Hematologic: Denies: Bleeding Excessively, Bruising Objective Physical Examination General Exam: Positive: Alert, Cooperative, No Acute Distress Eye Exam: Positive: Conjunctiva & lids normal, EOMI, PERRLA, Negative: Sclera icteric ENT Exam: Positive: Atraumatic, Mucous membr. moist/pink, Pharynx Normal Neck Exam: Positive: Supple, Negative: JVD, thyromegaly Chest Exam: Positive: Diminished Heart Exam: Positive: Normal S1, Normal S2, Rate Normal, Regular Rhythm Abdomen Exam: Positive: Normal bowel sounds, Soft, Negative: Hepatospenomegaly, Tenderness Extremity Exam: Positive: Other (chronic venous static changes noted.), Swelling, Negative: Tenderness Vital Signs/I&O Vital Signs Date Time Temp Pulse Resp B/P Pulse Ox O2 Delivery O2 Flow Rate FiO2 05/13/16 09:00 88 105/54 05/13/16 07:25 Nasal Cannula 2.0 05/13/16 06:00 97.9 18 94 I&O- Last 24 Hours up to 6 AM 05/13/16 06:00 Intake Total 1820 ml Output Total 5100 ml Balance -3280 ml Laboratory Data Labs 24H Laboratory Tests 2 05/12/16 12:10: Bedside Glucose (Misc Panel) 159H 05/12/16 16:59: Bedside Glucose (Misc Panel) 358H 05/12/16 20:52: Bedside Glucose (Misc Panel) 135H 05/13/16 05:29: Albumin 2.9L, Blood Urea Nitrogen 58H, Creatinine 1.28H, Sodium Level 136, Potassium Level 3.4L, Chloride Level 94L, Carbon Dioxide Level 35H, Anion Gap 7L , Calcium Level 8.6L, Glomerular Filtration Rate 44.4L, Phosphorus Level 3.9 CBC/BMP Laboratory Tests 05/13/16 05:29 Anion Gap 7 L, Red Blood Count 2.84 L, Mean Corpuscular Volume 97.0 H, Mean Corpuscular Hemoglobin 30.9, Mean Corpuscular Hemoglobin Concent 31.9 L, Red Cell Distribution Width 18.3 H FSBS Laboratory Tests Test 05/12/16 12:10 05/12/16 16:59 05/12/16 20:52 Range/Units Bedside Glucose (Misc Panel) 159 358 135 80-115 MG/DL Microbiology Microbiology 05/06/16 Stool Occult Blood (TESS) - Final, Complete 05/05/16 Stool Occult Blood (TESS) - Final, Complete TRACIE BRITTON MD May 13, 2016 11:52
--- NOTE | 2016-05-13 12:35 | IPNPDOC ---
Date/Time Seen The patient was seen on 05/13/16 at 12:22. Progress Note DATE OF SERVICE: 05/13/2016 SUBJECTIVE: Patient was seen this morning at bedside. She states that she didn' t sleep well last night. She has some dry heaves, but none this morning. No emesis, abdominal pain or diarrhea. No fevers or chills. No chest pain or shortness of breath. She is on her baseline oxygen requirement. States that she has been urinating well. OBJECTIVE: Vital Signs Date Time Temp Pulse Resp B/P Pulse Ox O2 Delivery O2 Flow Rate FiO2 05/13/16 09:00 88 105/54 05/13/16 07:25 Nasal Cannula 2.0 05/13/16 06:00 97.9 18 94 I&O- Last 24 Hours up to 6 AM 05/13/16 06:00 Intake Total 1820 ml Output Total 5100 ml Balance -3280 ml GENERAL: Patient is alert and oriented, in no acute distress, sitting up in chair. HEENT: Normocephalic, atraumatic. Extraocular muscles are intact. Moist mucosa. NECK: Supple. Jugular veins are not significantly elevated. HEART: Normal S1-S2. Irregularly irregular. I did not appreciate a murmur. LUNGS: Diminished breath sounds, however clear. ABDOMEN: Morbidly obese. Soft. Nontender. Bowel sounds are present. EXTREMITIES: She continues to have some lower extremity edema with chronic stasis changes. NEUROLOGIC: No focal deficits. LABORATORY DATA: 05/13/16 05:29 Red Blood Count 2.84 L, Mean Corpuscular Volume 97.0 H, Mean Corpuscular Hemoglobin 30.9, Mean Corpuscular Hemoglobin Concent 31.9 L, Red Cell Distribution Width 18.3 H, Albumin 2.9L, Anion Gap 7L, Calcium Level 8.6L, Glomerular Filtration Rate 44.4L, Phosphorus Level 3.9 ASSESSMENT AND PLAN: Ms. Magaña is a 66-year-old female with past medical history significant for morbid obesity, chronic systolic and diastolic congestive heart failure, being followed for congestive heart failure (CHF) and fluid overload. 1. Acute on chronic systolic and diastolic congestive heart failure and fluid overload. Patient continues to diuresis, a little too well given that she has been on the same regimen. Renal function and volume status stable. She remains on torsemide 40 mg twice daily, metolazone 2.5 mg daily, and spironolactone 25 mg twice daily. Lower extremity edema continues to improve. 2. Mild Hypokalemia. Oral potassium supplementation given. 3. Anemia in chronic kidney disease. She is status post 2 units of packed red blood cells on 05/12. Hemoglobin is currently stable. Given her positive fecal occult blood test, she is no longer on Pradaxa. 4. Hypertension. Blood pressure is stable. She is also on metoprolol in addition to torsemide, metolazone and spironolactone. DISPOSITION: Once stable for discharge, she can follow-up with nephrology in 2 weeks. GME ATTESTATION GME ATTESTATION My preceptor for this patient encounter was physically present in the building during the encounter and was fully available. As needed, all aspects of the patient interview, examination, medical decision making process, and medical care plan development were reviewed and approved by the preceptor. Preceptor is aware and concurs with the plan as stated in the body of this note and will attest to such by his/her cosignature. ELAINA DAILY DO May 13, 2016 12:35
[2016-05-13 14:00] VITALS: BP 104/52
[2016-05-13] MEDS: PERCOCET 5MG/325MG TAB PO PRN ×2 (16:23→21:46)
[2016-05-13] MEDS: **NOTE PATIENT COMMENT** MISC XX SCH (21:00)
[2016-05-13 22:00] VITALS: BP 102/60
[2016-05-14] VITALS (8 sets, daily range): BP systolic 89–132; BP diastolic 49–60
[2016-05-14] MEDS: TIOTROPIUM INHALER/CAPSULE (SPIRIVA) INH SCH (07:11)
[2016-05-14] MEDS: BREO ELLIPTA INH SCH (07:11)
[2016-05-14] MEDS: IPRATROPIUM 0.5MG/ALBUTEROL 2.5MG INH SOL UD 3ML (DUONEB)(J7620) NEB SCH ×4 (07:13→20:09)
[2016-05-14] MEDS: HumaLOG INSULIN (NovoLOG) PER UNIT SC SCH ×4 (07:30→21:00)
[2016-05-14 08:32] LABS: MEAN CORPUSCULAR HEMOGLOBIN 29.8 pg (27.0-33.0); MEAN CORPUSCULAR HGB CONC 30.1 g/dl (32.0-36.5); MEAN CORPUSCULAR VOLUME 98.9 fl (80.0-96.0); RED CELL DISTRIBUTION WIDTH 19.3 % (11.5-14.5); WHITE BLOOD COUNT 9.8 K/mm3 (4.0-10.0)
[2016-05-14] MEDS: METOPROLOL TART 12.5 MG PER 1/2 TAB PO SCH ×2 (09:00→21:00)
[2016-05-14] MEDS: LIDOCAINE 5% (LIDODERM) PATCH TD SCH (09:00)
[2016-05-14] MEDS: NYSTATIN 100,000 UNITS/GM TOPICAL PWD 15 GM TOP SCH ×2 (09:00→21:00)
[2016-05-14 09:07] LABS: ALBUMIN 3.1 GM/DL (3.2-5.2); CALCIUM LEVEL 8.8 MG/DL (8.8-10.2); CREATININE FOR GFR 1.3 MG/DL (0.55-1.02); GLOMERULAR FILTRATION RATE 43.6 (>45); PHOSPHORUS LEVEL 3.4 MG/DL (2.5-4.9); POTASSIUM SERUM 3.5 MEQ/L (3.5-5.1)
[2016-05-14] MEDS: ATORVASTATIN 20 MG TAB PO SCH (09:32)
[2016-05-14] MEDS: MULTIVITAMINS/MINERALS THERAP 1 TAB PO SCH (09:32)
[2016-05-14] MEDS: TORSEMIDE 20 MG TAB PO SCH ×2 (09:33→16:14)
[2016-05-14] MEDS: ASPIRIN 81 MG ENTERIC TAB PO SCH (09:33)
[2016-05-14] MEDS: PERCOCET 5MG/325MG TAB PO PRN ×2 (09:33→21:27)
[2016-05-14] MEDS: SUCRALFATE 1 GM TAB PO SCH ×3 (09:34→17:09)
[2016-05-14] MEDS: PANTOPRAZOLE 40MG TAB (PROTONIX) PO SCH (09:34)
[2016-05-14] MEDS: metOLazone 2.5 MG TAB PO SCH (09:34)
[2016-05-14] MEDS: ASCORBIC ACID 500 MG TAB PO SCH ×3 (09:34→17:55)
[2016-05-14] MEDS: POTASSIUM CHLORIDE 10 MEQ SR TABLET PO SCH ×3 (09:34→21:27)
[2016-05-14] MEDS: FERROUS SULFATE 325MG TAB PO SCH (09:34)
[2016-05-14] MEDS: SPIRONOLACTONE 25 MG TAB PO SCH ×2 (09:34→16:13)
[2016-05-14] MEDS: LORATADINE 10 MG TAB PO PRN (09:40)
[2016-05-14] MEDS: DOCUSATE SODIUM 100 MG CAP PO PRN (09:40)
--- NOTE | 2016-05-14 11:47 | IPNPDOC ---
Assessment/Plan Date Seen The patient was seen on 05/14/16. Problems Problems: (1) Chronic anemia Status: Chronic Response to Treatment: Stable Problem Text: normocytic anemia received venofer, prbc and darbapoietin Recently transfused 2 units on 05/04/16, and has received 5 units total since s/p EGD no active bleed on 05/08/[address] Ceballos of GI The patient's hemoglobin drifted down to 7.7 on 05/12. Given 2 units of PRBC's ( 7 Total Units of PRBC's now given since admission) She has had no active bleeding since her last transfusion, however she has had 2 stool occult positive samples We will repeat her stool occult sample today We have discontinued the Pradaxa after discussing with Cardiology and explaining the risks and benefits associated with this with the patient Discussed the need for colonoscopy with Dr. Ceballos of gastroenterology, we will tentatively schedule her for the scope tomorrow (2) Anasarca Status: Chronic Response to Treatment: Improving Problem Text: due to diastolic congestive heart failure. Patient has been managed on multiple diuretics including torsemide, spironolactone, metolazone by nephrology She has been maintained on a negative fluid balance level over the last few days and her volume status has improved considerably. (3) CAP (community acquired pneumonia) Status: Resolved Problem Text: Status post completion of trial of ceftriaxone. (4) Constipation Status: Resolved Problem Text: on bowel regimen (5) JANE (obstructive sleep apnea) Status: Chronic (6) Morbid obesity Status: Chronic (7) Diabetes Status: Chronic (8) Hypertension Status: Chronic (9) COPD (chronic obstructive pulmonary disease) Status: Chronic Problem Text: continue home meds. Respiratory status has returned back to baseline status after adequate diuresis and trial of antibiotics for community acquired pneumonia. (10) CAD (coronary artery disease) Status: Chronic (11) Hyperlipidemia Status: Chronic (12) Mitral stenosis and incompetence Status: Chronic (13) Pulmonary hypertension Status: Chronic (14) Afib Status: Chronic Problem Text: Pradaxa discontinued as noted above (15) Allergy Status: Chronic Problem Text: continue loratidine Plan / VTE VTE Prophylaxis Ordered?: Yes Plan / Urinary Catheter Reason for insertion/continuin: Other-document below Subjective Review of Systems CC/HPI The patient is a 66-year-old female admitted with a reason for visit of Acute Respiratory Distress. General: Denies: Chills, Night Sweats Constitutional: Denies: Chills, Fever Eyes: Denies: Pain, Vision change ENT: Denies: Ear Pain, Head Aches Pulmonary: Denies: Cough, Dyspnea Cardiovascular: Denies: Chest Pain, Palpitations Gastrointestinal: Denies: Abdominal Pain, Nausea, Vomiting Objective Physical Examination General Exam: Positive: Alert, Cooperative, No Acute Distress Eye Exam: Positive: Conjunctiva & lids normal, EOMI, PERRLA ENT Exam: Positive: Atraumatic, Mucous membr. moist/pink, Pharynx Normal Neck Exam: Positive: Supple Chest Exam: Positive: Diminished Heart Exam: Positive: Normal S1, Normal S2, Rate Normal, Regular Rhythm Abdomen Exam: Positive: Normal bowel sounds, Soft Extremity Exam: Positive: Other, Swelling Vital Signs/I&O Vital Signs Date Time Temp Pulse Resp B/P Pulse Ox O2 Delivery O2 Flow Rate FiO2 05/14/16 09:33 18 Room Air 05/14/16 09:00 92 105/50 05/14/16 06:00 97.4 98 2.0 I&O- Last 24 Hours up to 6 AM 05/14/16 06:00 Intake Total 900 ml Output Total 3150 ml Balance -2250 ml Laboratory Data Labs 24H Laboratory Tests 2 05/13/16 12:09: Bedside Glucose (Misc Panel) 140H 05/13/16 17:10: Bedside Glucose (Misc Panel) 169H 05/13/16 20:22: Bedside Glucose (Misc Panel) 255H 05/14/16 06:29: Bedside Glucose (Misc Panel) 146H 05/14/16 08:17: Albumin 3.1L, Blood Urea Nitrogen 60H, Creatinine 1.30H, Sodium Level 137, Potassium Level 3.5, Chloride Level 95L, Carbon Dioxide Level 36H, Anion Gap 6L , Calcium Level 8.8, Glomerular Filtration Rate 43.6L, Phosphorus Level 3.4 CBC/BMP Laboratory Tests 05/14/16 08:17 Anion Gap 6 L, Red Blood Count 2.86 L, Mean Corpuscular Volume 98.9 H, Mean Corpuscular Hemoglobin 29.8, Mean Corpuscular Hemoglobin Concent 30.1 L, Red Cell Distribution Width 19.3 H FSBS Laboratory Tests Test 1/14/17 12:09 05/13/16 17:10 05/13/16 20:22 05/14/16 06:29 Range/Units Bedside Glucose (Misc Panel) 140 169 255 146 80-115 MG/DL Microbiology Microbiology 05/06/16 Stool Occult Blood (TESS) - Final, Complete 05/05/16 Stool Occult Blood (TESS) - Final, Complete TRACIE BRITTON MD May 14, 2016 11:47
[2016-05-14] MEDS: DARBEPOETIN 300 MCG/0.6 ML *NON-DIALYSIS* SYRINGE (J0881) SC SCH (12:04)
[2016-05-14] MEDS ORDERED: GOLYTELY SOLN 4000 ML BTL PO ONE (14:00)
[2016-05-14] MEDS: **NOTE PATIENT COMMENT** MISC XX SCH (21:00)
[2016-05-15 06:00] VITALS: BP 103/55
[2016-05-15] MEDS ORDERED: GOLYTELY SOLN 4000 ML BTL PO ONE (06:00)
[2016-05-15 06:45] LABS: MEAN CORPUSCULAR HEMOGLOBIN 30.7 pg (27.0-33.0); MEAN CORPUSCULAR HGB CONC 31.6 g/dl (32.0-36.5); MEAN CORPUSCULAR VOLUME 97.2 fl (80.0-96.0); RED CELL DISTRIBUTION WIDTH 17.8 % (11.5-14.5); WHITE BLOOD COUNT 11.1 K/mm3 (4.0-10.0)
[2016-05-15 07:08] LABS: CALCIUM LEVEL 8.9 MG/DL (8.8-10.2); CREATININE FOR GFR 1.13 MG/DL (0.55-1.02); GLOMERULAR FILTRATION RATE 51.3 (>45); POTASSIUM SERUM 3.2 MEQ/L (3.5-5.1)
[2016-05-15] MEDS: HumaLOG INSULIN (NovoLOG) PER UNIT SC SCH ×4 (07:30→21:00)
[2016-05-15] MEDS ORDERED: POTASSIUM CHLORIDE 10% LIQ 20 MEQ/15 ML UDC PO ONE (08:00)
[2016-05-15] MEDS: IPRATROPIUM 0.5MG/ALBUTEROL 2.5MG INH SOL UD 3ML (DUONEB)(J7620) NEB SCH ×4 (08:00→19:29)
[2016-05-15] MEDS: MULTIVITAMINS/MINERALS THERAP 1 TAB PO SCH (08:35)
[2016-05-15] MEDS: SPIRONOLACTONE 25 MG TAB PO SCH ×2 (08:35→17:57)
[2016-05-15] MEDS: metOLazone 2.5 MG TAB PO SCH (08:36)
[2016-05-15] MEDS: ASCORBIC ACID 500 MG TAB PO SCH ×2 (08:36→17:58)
[2016-05-15] MEDS: POTASSIUM CHLORIDE 10 MEQ SR TABLET PO SCH ×3 (08:37→21:05)
[2016-05-15] MEDS: SUCRALFATE 1 GM TAB PO SCH ×3 (08:37→17:58)
[2016-05-15] MEDS: TORSEMIDE 20 MG TAB PO SCH ×2 (08:37→17:57)
[2016-05-15] MEDS: ATORVASTATIN 20 MG TAB PO SCH (08:37)
[2016-05-15] MEDS: PANTOPRAZOLE 40MG TAB (PROTONIX) PO SCH (08:37)
[2016-05-15] MEDS: FERROUS SULFATE 325MG TAB PO SCH (08:37)
[2016-05-15] MEDS: METOPROLOL TART 12.5 MG PER 1/2 TAB PO SCH ×2 (08:38→21:00)
[2016-05-15] MEDS: LIDOCAINE 5% (LIDODERM) PATCH TD SCH (08:39)
[2016-05-15] MEDS: NYSTATIN 100,000 UNITS/GM TOPICAL PWD 15 GM TOP SCH ×2 (08:40→21:00)
[2016-05-15] MEDS: ASPIRIN 81 MG ENTERIC TAB PO SCH (08:48)
[2016-05-15] MEDS: TIOTROPIUM INHALER/CAPSULE (SPIRIVA) INH SCH (09:00)
[2016-05-15] MEDS: BREO ELLIPTA INH SCH (09:00)
[2016-05-15] MEDS: PERCOCET 5MG/325MG TAB PO PRN ×2 (09:04→21:05)
--- NOTE | 2016-05-15 13:27 | IPNPDOC ---
Assessment/Plan Date Seen The patient was seen on 05/15/16. Problems Problems: (1) Chronic anemia Status: Chronic Response to Treatment: Stable Problem Text: normocytic anemia received venofer, prbc and darbapoietin Recently transfused 2 units on 05/04/16, and has received 5 units total since s/p EGD no active bleed on 05/08/[address] Ceballos of GI The patient's hemoglobin drifted down to 7.7 on 05/12. Given 2 units of PRBC's ( 7 Total Units of PRBC's now given since admission) She has had no active bleeding since her last transfusion, however she has had 2 stool occult positive samples Repeat Stool Occult study pending from 05/14 We have discontinued the Pradaxa after discussing with Cardiology and explaining the risks and benefits associated with this with the patient Patient scheduled for Colonoscopy today (2) Anasarca Status: Chronic Response to Treatment: Improving Problem Text: due to diastolic congestive heart failure. Patient has been managed on multiple diuretics including torsemide, spironolactone, metolazone by nephrology She has been maintained on a negative fluid balance level over the last few days and her volume status has improved considerably. (3) CAP (community acquired pneumonia) Status: Resolved Problem Text: Status post completion of trial of ceftriaxone. (4) Constipation Status: Resolved Problem Text: on bowel regimen (5) JANE (obstructive sleep apnea) Status: Chronic (6) Morbid obesity Status: Chronic (7) Diabetes Status: Chronic (8) Hypertension Status: Chronic (9) COPD (chronic obstructive pulmonary disease) Status: Chronic Problem Text: continue home meds. Respiratory status has returned back to baseline status after adequate diuresis and trial of antibiotics for community acquired pneumonia. (10) CAD (coronary artery disease) Status: Chronic (11) Hyperlipidemia Status: Chronic (12) Mitral stenosis and incompetence Status: Chronic (13) Pulmonary hypertension Status: Chronic (14) Afib Status: Chronic Problem Text: Pradaxa discontinued as noted above (15) Allergy Status: Chronic Problem Text: continue loratidine Plan / VTE VTE Prophylaxis Ordered?: Yes Plan / Urinary Catheter Reason for insertion/continuin: Other-document below Subjective Review of Systems CC/HPI The patient is a 66-year-old female admitted with a reason for visit of Acute Respiratory Distress. General: Denies: Chills, Night Sweats Constitutional: Denies: Chills, Fever Eyes: Denies: Pain, Vision change ENT: Denies: Ear Pain, Head Aches Skin: Denies: Lesions, Rash Pulmonary: Denies: Cough, Dyspnea Cardiovascular: Denies: Chest Pain, Palpitations Gastrointestinal: Denies: Nausea, Vomiting Genitourinary: Denies: Dysuria, Frequency Objective Physical Examination General Exam: Positive: Alert, Cooperative, No Acute Distress Eye Exam: Positive: Conjunctiva & lids normal, EOMI, PERRLA ENT Exam: Positive: Atraumatic, Mucous membr. moist/pink, Pharynx Normal Neck Exam: Positive: Supple Chest Exam: Positive: Diminished Heart Exam: Positive: Normal S1, Normal S2, Rate Normal, Regular Rhythm Abdomen Exam: Positive: Normal bowel sounds, Soft Extremity Exam: Positive: Other, Swelling Vital Signs/I&O Vital Signs Date Time Temp Pulse Resp B/P Pulse Ox O2 Delivery O2 Flow Rate FiO2 05/15/16 09:34 18 05/15/16 08:38 89 103/55 05/15/16 06:00 97.5 95 Nasal Cannula 2.0 I&O- Last 24 Hours up to 6 AM 05/15/16 06:00 Intake Total 3200 ml Output Total 5600 ml Balance -2400 ml Laboratory Data Labs 24H Laboratory Tests 2 05/14/16 16:51: Bedside Glucose (Misc Panel) 157H 05/15/16 06:36: Anion Gap 7L, Blood Urea Nitrogen 54H, Creatinine 1.13H, Sodium Level 135L, Potassium Level 3.2L, Chloride Level 91L, Carbon Dioxide Level 37H, Calcium Level 8.9, Glomerular Filtration Rate 51.3, Magnesium Level 2.0 05/15/16 11:33: Bedside Glucose (Misc Panel) 136H CBC/BMP Laboratory Tests 05/15/16 06:36 Calcium Level 8.9, Red Blood Count 2.89 L, Mean Corpuscular Volume 97.2 H, Mean Corpuscular Hemoglobin 30.7, Mean Corpuscular Hemoglobin Concent 31.6 L, Red Cell Distribution Width 17.8 H FSBS Laboratory Tests Test 05/14/16 16:51 05/15/16 11:33 Range/Units Bedside Glucose (Misc Panel) 157 136 80-115 MG/DL Microbiology Microbiology 05/06/16 Stool Occult Blood (TESS) - Final, Complete 05/05/16 Stool Occult Blood (TESS) - Final, Complete TRACIE BRITTON MD May 15, 2016 13:27
[2016-05-15 14:00] VITALS: BP 87/54
[2016-05-15] MEDS ORDERED: LIDOCAINE 2% INJ 100 MG/5 ML SDV (FOR ANES.) As Ordered ONE (16:04)
[2016-05-15] MEDS ORDERED: PHENYLephrine HCL 500 MCG/5 ML (100MCG/ML) SYRINGE (J2370) As Ordered ONE (16:04)
[2016-05-15] MEDS ORDERED: PROPOFOL 200 MG/20 ML VIAL As Ordered ONE ×2 (16:04→16:09)
[2016-05-15] MEDS ORDERED: ePHEDrine SULFATE 25 MG/5 ML(5MG/ML) SYRINGE As Ordered ONE (16:16)
--- NOTE | 2016-05-15 16:32 | ROOR ---
Patient Name: Francisca Magaña Procedure Date: 05/15/2016 1:42 PM Date of : 1950 Age: 66 Gender: Female Note Status: Finalized Procedure: Colonoscopy to Anastomosis Indications: Iron deficiency anemia secondary to chronic blood loss Providers: Andreas Ceballos MD Referring MD: 2. Inpatient 2. Inpatient Requesting Provider: Medicines: Monitored Anesthesia Care Complications: No immediate complications. Procedure: Pre-Anesthesia Assessment: - The heart rate, respiratory rate, oxygen saturations, blood pressure, adequacy of pulmonary ventilation, and response to care were monitored throughout the procedure. The Colonoscope was introduced through the anus and advanced to the ileocolonic anastomosis. The colonoscopy was performed without difficulty. The patient tolerated the procedure well. The quality of the bowel preparation was fair. Findings: The perianal and digital rectal examinations were normal. Non-bleeding internal hemorrhoids were found during retroflexion. The hemorrhoids were small and Grade I (internal hemorrhoids that do not prolapse). Scattered small-mouthed diverticula were found in the recto-sigmoid colon, in the sigmoid colon and in the descending colon. The exam was otherwise without abnormality on direct and retroflexion views. Impression: - Non-bleeding internal hemorrhoids. - Diverticulosis in the recto-sigmoid colon, in the sigmoid colon and in the descending colon. - The examination was otherwise normal on direct and retroflexion views. - No specimens collected. - The examination was otherwise normal. Recommendation: - Patient has a contact number available for emergencies. The signs and symptoms of potential delayed complications were discussed with the patient. Return to normal activities tomorrow. Written discharge instructions were provided to the patient. - Continue present medications. - [facility] patient to [facility] for [facility] care. - Return to referring physician. - The findings and recommendations were discussed with the patient's family. Andreas Ceballos MD Andreas Ceballos MD 05/15/2016 4:32:20 PM This report has been signed electronically. Number of Addenda: 0 Note Initiated On: 05/15/2016 1:42 PM Estimated Blood Loss: Estimated blood loss: none.
[2016-05-15 17:55] VITALS: BP 131/66
[2016-05-15 19:29] VITALS: O2SAT 96
[2016-05-15] MEDS: **NOTE PATIENT COMMENT** MISC XX SCH (21:00)
--- NOTE | 2016-05-15 21:16 | IPN ---
DATE: 05/15/2016 SUBJECTIVE: Patient as seen and examined at the bedside today in the morning. She was sitting on the bedside commode, because she is getting the bowel prep done, and she was to get the colonoscopy done today in the afternoon. Patient's renal function continues to be stable. She continues to be on the same dose of diuretics, and she is diuresing well with that dose. REVIEW OF SYSTEMS: Patient denies any fevers, chills, rigors, headache, nausea, vomiting, chest pain. She does report baseline shortness of breath. She denies any nausea or vomiting, but she is having diarrhea because of the bowel prep that she is receiving for colonoscopy. She reports that the lower extremity edema is significantly better at this time, and leg blisters and ulcers are also improving. Rest of review of systems is negative. OBJECTIVE: VITAL SIGNS: Temperature is 98.2 degrees Fahrenheit, blood pressure is 103/55, pulse is 89, respiratory rate of 18, saturating 95% on nasal cannula. Intake and output: Urine output recorded suicidal ideation 5100 mL yesterday and 1500 mL so far today since overnight. PHYSICAL EXAMINATION: GENERAL: Patient is awake, alert, oriented times three, sitting on the commode at this time. No apparent distress. HEAD AND NECK: Extraocular muscles intact. Pupils equally round and reactive to light. Neck is supple. There is no jugular venous distention (JVD). CARDIOVASCULAR: S1, S2, regular rate. No murmur, rub, or gallop. RESPIRATORY: Chest is clear to auscultation bilaterally. Bilateral equal air entry. ABDOMEN: Soft, obese, nontender. Hyperactive bowel sounds because of the bowel prep. EXTREMITIES: Patient has 1+ edema of the bilateral lower extremities; however, the blisters and swelling are significantly better as compared with one week ago when I last saw the patient. CENTRAL NERVOUS SYSTEM: No focal neurological deficit. Power is 5/5 in all extremities. PSYCHIATRIC: Normal mood and affect. LABORATORY REVIEW: CBC showed a WBC 11.1, hemoglobin is 8.9, platelets are 283. BMP showed sodium 135, potassium 3.2, chloride 91, bicarbonate 27, BUN 54, creatinine is 1.13, calcium 8.9, magnesium is 2. CURRENT MEDICATIONS: Patient's medications were all reviewed by me. There is no change in the diuretic regimen at this time. She continues to be on metolazone 2.5 mg by mouth daily, torsemide 40 mg by mouth twice a day, spironolactone 25 mg by mouth twice a day. ASSESSMENT: A 66-year-old female with past medical history of morbid obesity, chronic systolic and diastolic congestive heart failure, chronic oxygen dependence. Nephrology service following the patient for management of congestive heart failure, fluid overload. PLAN: 1. Acute on chronic congestive heart failure and fluid overload. Patient continues to diurese very well with the current dose of torsemide 40 mg twice a day, metolazone 2.5 mg daily, and spironolactone 25 mg by mouth twice a day. Patient is slowly getting alkalotic with the current dose of diuretics, and she is in negative fluid balance for the last few days. I would slowly titrate down the dose of diuretics at this time now. 2. Hypokalemia. Hypokalemia is secondary to aggressive diuresis. Patient was already given a dose of potassium chloride 40 mEq by mouth times one dose today morning by the primary team. 3. Recurrent anemia with positive fecal occult blood test. Patient is status post multiple transfusions during this admission, and fecal occult test done multiple times during this admission came out to be positive. Her anticoagulation was also held. Patient is getting the bowel prep done today for colonoscopy. Continue current dose of Aranesp 300 mg subcutaneous on Sundays. 4. Atrial fibrillation. Patient's heart rate is well controlled with current dose of metoprolol. Pradaxa is on hold because of positive fecal occult blood test and anemia. Rest of the management is as per primary team. [facility]
[2016-05-15 22:00] VITALS: BP 92/46
[2016-05-16] MEDS: PERCOCET 5MG/325MG TAB PO PRN ×3 (04:44→22:04)
[2016-05-16 06:31] VITALS: BP 131/59
[2016-05-16] MEDS: TIOTROPIUM INHALER/CAPSULE (SPIRIVA) INH SCH (07:54)
[2016-05-16] MEDS: IPRATROPIUM 0.5MG/ALBUTEROL 2.5MG INH SOL UD 3ML (DUONEB)(J7620) NEB SCH ×4 (07:54→19:22)
[2016-05-16] MEDS: BREO ELLIPTA INH SCH (07:55)
[2016-05-16] MEDS: ATORVASTATIN 20 MG TAB PO SCH (08:20)
[2016-05-16] MEDS: metOLazone 2.5 MG TAB PO SCH (08:20)
[2016-05-16] MEDS: ASCORBIC ACID 500 MG TAB PO SCH ×2 (08:20→17:49)
[2016-05-16] MEDS: ASPIRIN 81 MG ENTERIC TAB PO SCH (08:20)
[2016-05-16] MEDS: FERROUS SULFATE 325MG TAB PO SCH (08:20)
[2016-05-16] MEDS: TORSEMIDE 20 MG TAB PO SCH (08:21)
[2016-05-16] MEDS: POTASSIUM CHLORIDE 10 MEQ SR TABLET PO SCH ×3 (08:21→22:03)
[2016-05-16] MEDS: METOPROLOL TART 12.5 MG PER 1/2 TAB PO SCH ×2 (08:21→22:05)
[2016-05-16] MEDS: PANTOPRAZOLE 40MG TAB (PROTONIX) PO SCH (08:21)
[2016-05-16] MEDS: MULTIVITAMINS/MINERALS THERAP 1 TAB PO SCH (08:21)
[2016-05-16] MEDS: SPIRONOLACTONE 25 MG TAB PO SCH ×2 (08:22→16:13)
[2016-05-16] MEDS: HumaLOG INSULIN (NovoLOG) PER UNIT SC SCH ×4 (08:22→21:00)
[2016-05-16] MEDS: SUCRALFATE 1 GM TAB PO SCH ×3 (08:22→17:49)
[2016-05-16] MEDS: LIDOCAINE 5% (LIDODERM) PATCH TD SCH (08:22)
[2016-05-16] MEDS: NYSTATIN 100,000 UNITS/GM TOPICAL PWD 15 GM TOP SCH ×2 (08:23→21:00)
[2016-05-16 09:28] LABS: CALCIUM LEVEL 9.1 MG/DL (8.8-10.2); CREATININE FOR GFR 1.41 MG/DL (0.55-1.02); GLOMERULAR FILTRATION RATE 39.7 (>45); MAGNESIUM LEVEL 1.9 MG/DL (1.8-2.4); POTASSIUM SERUM 3.6 MEQ/L (3.5-5.1)
--- NOTE | 2016-05-16 11:23 | IPNPDOC ---
Date/Time Seen The patient was seen on 05/16/16 at 11:07. Progress Note DATE OF ENCOUNTER: 05/16/2016 SUBJECTIVE: Patient was seen this morning at bedside. She states that she is a little tired, but otherwise doing well. No acute overnight events. She had several bowel movements yesterday due to colonoscopy prep. Review of systems is negative for chest pain, palpitations, increased shortness of breath, nausea, vomiting, abdominal pain, fever, chills, headache, dizziness. She is on her baseline oxygen requirement. States that she has been urinating well, no dysuria or hematuria. OBJECTIVE: Vital Signs Date Time Temp Pulse Resp B/P Pulse Ox O2 Delivery O2 Flow Rate FiO2 05/16/16 08:21 96 131/59 05/16/16 06:31 97.9 20 93 Nasal Cannula 2.0 I&O- Last 24 Hours up to 6 AM 05/16/16 06:00 Intake Total 1260 ml Output Total 250 ml Balance 1010 ml GENERAL: Patient is alert and oriented, in no acute distress, sitting up in chair. HEENT: Normocephalic, atraumatic. Extraocular muscles are intact. Moist mucosa. NECK: Supple. Jugular veins are not elevated. HEART: Normal S1-S2. Irregularly irregular. I did not appreciate a murmur. LUNGS: Clear to auscultation bilaterally. ABDOMEN: Morbidly obese. Soft. Nontender. Bowel sounds are present. EXTREMITIES: Lower extremity edema significantly improved. SKIN: Dry and scaly in the lower extremities. NEUROLOGIC: No focal deficits. LABORATORY DATA: 05/16/16 08:54 Calcium Level 9.1, Anion Gap 9, Glomerular Filtration Rate 39.7L, Magnesium Level 1.9 ASSESSMENT AND PLAN: Ms. Magaña is a 66-year-old female with past medical history significant for morbid obesity, chronic systolic and diastolic congestive heart failure, being followed for congestive heart failure (CHF) and fluid overload. 1. Acute on chronic systolic and diastolic congestive heart failure and fluid overload. Patient continues to diurese well. Her creatinine worsened a little bit secondary to the diarrhea she was having due to colonoscopy prep. We will skip her evening dose of torsemide and resumed her on it tomorrow. She is to remain on torsemide 40 mg twice daily, spironolactone 25 mg twice daily. Metolazone is being changed to 2.5 mg every 48 hours. We will continue to monitor her volume status. 2. Mild Hypokalemia, secondary to the diuresis. This has resolved. Oral potassium supplementation given 3 times daily. 3. Recurrent anemia. She is status post 2 units of packed red blood cells on . She has received a total of 7 units throughout her hospitalization. Her fecal occult blood test was positive and she underwent colonoscopy on 05/15 which just showed nonbleeding internal hemorrhoids and diverticulosis. 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 No source for acute bleeding. She receives Aranesp once a week as well as iron supplementation daily. Pradaxa has been held due to this, which she takes for atrial fibrillation. 4. Hypertension. Blood pressure is stable. She is also on metoprolol in addition to torsemide, metolazone and spironolactone. GME ATTESTATION GME ATTESTATION My preceptor for this patient encounter was physically present in the building during the encounter and was fully available. As needed, all aspects of the patient interview, examination, medical decision making process, and medical care plan development were reviewed and approved by the preceptor. Preceptor is aware and concurs with the plan as stated in the body of this note and will attest to such by his/her cosignature. ATTENDING NOTE Nephrology Attending: Pt was seen and examined this morning. volume status is getting optimized. change Metolazone to alternate days now. I agree with above assessment and Recommendations. ELAINA DAILY DO May 16, 2016 11:22 MORGAN VERA MD May 16, 2016 21:19
[2016-05-16 14:00] VITALS: BP 121/83
--- NOTE | 2016-05-16 18:04 | IPNPDOC ---
Assessment/Plan Date Seen The patient was seen on 05/16/16. Problems Problems: (1) Chronic anemia Status: Chronic Response to Treatment: Stable Problem Text: normocytic anemia received venofer, prbc and darbapoietin Recently transfused 2 units on 05/04/16, and has received 5 units total since s/p EGD no active bleed on 05/08/16 , s/p colonoscopy 05/16/[address] Ceballos of GI (7 Total Units of PRBC's now given since admission) She has had no active bleeding since her last transfusion, however she has had 2 stool occult positive samples We have discontinued the Pradaxa after discussing with Cardiology and explaining the risks and benefits associated with this with the patient, followup with cardiology as outpatient to determine when to restart anticoagulation f/u hh transfuse as needed (2) Anasarca Status: Chronic Response to Treatment: Improving Problem Text: due to diastolic congestive heart failure. Patient has been managed on multiple diuretics including torsemide, spironolactone, metolazone by nephrology She has been maintained on a negative fluid balance level over the last few days and her volume status has improved considerably. diuretics as per renal, f/u bun, cr mildly increased (3) CAP (community acquired pneumonia) Status: Resolved Problem Text: Status post completion of trial of ceftriaxone. (4) Constipation Status: Resolved Problem Text: on bowel regimen (5) JANE (obstructive sleep apnea) Status: Chronic Problem Text: cpap (6) Morbid obesity Status: Chronic Problem Text: complicating care (7) Diabetes Status: Chronic Problem Text: insulin as per protocol;, f.u FS (8) Hypertension Status: Chronic (9) COPD (chronic obstructive pulmonary disease) Status: Chronic Problem Text: continue home meds. Respiratory status has returned back to baseline status after adequate diuresis and trial of antibiotics for community acquired pneumonia. (10) CAD (coronary artery disease) Status: Chronic Problem Text: c/w asa, statin, betablocker (11) Hyperlipidemia Status: Chronic Problem Text: statin (12) Mitral stenosis and incompetence Status: Chronic Problem Text: outpatient (13) Pulmonary hypertension Status: Chronic (14) Afib Status: Chronic Problem Text: Pradaxa discontinued as noted above beta alfreda cardiology as outpatient (15) Allergy Status: Chronic Problem Text: continue loratidine (16) CKD (chronic kidney disease) Status: Chronic Problem Text: f/u renal, f/u cr and bun Plan / VTE VTE Prophylaxis Ordered?: Yes (SCD) Plan / Urinary Catheter Reason for insertion/continuin: Other-document below Disposition pfs Subjective Review of Systems CC/HPI The patient is a 66-year-old female admitted with a reason for visit of Acute Respiratory Distress. Events since last encounter No acute events overnight, denied sob, fever, chill. no hematemesis, melena, reported hard stool General: Denies: Chills, Fatigue Constitutional: Denies: Chills, Fever Eyes: Denies: Pain, Vision change ENT: Denies: Ear Pain, Head Aches Skin: Denies: Rash Pulmonary: Denies: Cough, Dyspnea Cardiovascular: Denies: Chest Pain, Palpitations Gastrointestinal: Denies: Nausea, Vomiting Genitourinary: Denies: Dysuria, Frequency Hematologic: Denies: Bleeding Excessively, Bruising Endocrine: Denies: Polydipsia, Polyuria Objective Physical Examination General Exam: Positive: Alert, Cooperative, No Acute Distress Eye Exam: Positive: Conjunctiva & lids normal, EOMI, PERRLA ENT Exam: Positive: Atraumatic, Mucous membr. moist/pink, Pharynx Normal Neck Exam: Positive: Supple Chest Exam: Positive: Diminished Heart Exam: Positive: Normal S1, Normal S2, Rate Normal, Regular Rhythm Abdomen Exam: Positive: Normal bowel sounds, Soft Extremity Exam: Positive: Other, Swelling Vital Signs/I&O Vital Signs Date Time Temp Pulse Resp B/P Pulse Ox O2 Delivery O2 Flow Rate FiO2 05/16/16 14:00 98.6 89 20 121/83 95 Nasal Cannula 2.0 I&O- Last 24 Hours up to 6 AM 05/16/16 06:00 Intake Total 1260 ml Output Total 250 ml Balance 1010 ml Laboratory Data Labs 24H Laboratory Tests 2 05/15/16 19:34: Bedside Glucose (Misc Panel) 312H 05/16/16 06:00: Bedside Glucose (Misc Panel) 171H 05/16/16 08:54: Anion Gap 9, Blood Urea Nitrogen 47H, Creatinine 1.41H, Sodium Level 136, Potassium Level 3.6, Chloride Level 94L, Carbon Dioxide Level 33H, Calcium Level 9.1, Glomerular Filtration Rate 39.7L, Magnesium Level 1.9 1/17/17 12:07: Bedside Glucose (Misc Panel) 151H 05/16/16 17:03: Bedside Glucose (Misc Panel) 240H CBC/BMP Laboratory Tests 05/16/16 08:54 Calcium Level 9.1 FSBS Laboratory Tests Test 05/15/16 19:34 05/16/16 06:00 05/16/16 12:07 05/16/16 17:03 Range/Units Bedside Glucose (Misc Panel) 312 171 151 240 80-115 MG/DL Microbiology Microbiology 05/06/16 Stool Occult Blood (TESS) - Final, Complete ELIZ BARBOSA MD May 16, 2016 18:04
[2016-05-16] MEDS: **NOTE PATIENT COMMENT** MISC XX SCH (21:00)
[2016-05-16 22:00] VITALS: BP 115/58
[2016-05-16] MEDS: SENOKOT S TAB PO SCH (22:04)
[2016-05-17] MEDS: TIOTROPIUM INHALER/CAPSULE (SPIRIVA) INH SCH (07:20)
[2016-05-17] MEDS: BREO ELLIPTA INH SCH (07:20)
[2016-05-17] MEDS: IPRATROPIUM 0.5MG/ALBUTEROL 2.5MG INH SOL UD 3ML (DUONEB)(J7620) NEB SCH ×4 (07:20→20:30)
[2016-05-17] MEDS: ASCORBIC ACID 500 MG TAB PO SCH ×2 (08:12→18:26)
[2016-05-17] MEDS: HumaLOG INSULIN (NovoLOG) PER UNIT SC SCH ×4 (08:12→20:54)
[2016-05-17] MEDS: SUCRALFATE 1 GM TAB PO SCH ×3 (08:12→18:27)
[2016-05-17] MEDS: METOPROLOL TART 12.5 MG PER 1/2 TAB PO SCH ×2 (09:00→21:08)
[2016-05-17] MEDS: TORSEMIDE 20 MG TAB PO SCH ×2 (09:44→18:27)
[2016-05-17] MEDS: ASPIRIN 81 MG ENTERIC TAB PO SCH (09:45)
[2016-05-17] MEDS: POTASSIUM CHLORIDE 10 MEQ SR TABLET PO SCH ×3 (09:45→21:08)
[2016-05-17] MEDS: SPIRONOLACTONE 25 MG TAB PO SCH ×2 (09:45→18:27)
[2016-05-17] MEDS: ATORVASTATIN 20 MG TAB PO SCH (09:46)
[2016-05-17] MEDS: MULTIVITAMINS/MINERALS THERAP 1 TAB PO SCH (09:46)
[2016-05-17] MEDS: PANTOPRAZOLE 40MG TAB (PROTONIX) PO SCH (09:46)
[2016-05-17] MEDS: SENOKOT S TAB PO SCH ×2 (09:46→21:09)
[2016-05-17] MEDS: LIDOCAINE 5% (LIDODERM) PATCH TD SCH (09:46)
[2016-05-17] MEDS: FERROUS SULFATE 325MG TAB PO SCH (09:46)
[2016-05-17] MEDS: NYSTATIN 100,000 UNITS/GM TOPICAL PWD 15 GM TOP SCH ×2 (09:47→21:00)
[2016-05-17] MEDS: LORATADINE 10 MG TAB PO PRN (10:02)
[2016-05-17 11:10] LABS: MEAN CORPUSCULAR HGB CONC 31.9 g/dl (32.0-36.5); MEAN CORPUSCULAR VOLUME 97.3 fl (80.0-96.0); RED CELL DISTRIBUTION WIDTH 16.8 % (11.5-14.5); WHITE BLOOD COUNT 10.9 K/mm3 (4.0-10.0)
[2016-05-17 11:11] LABS: ALBUMIN 3.1 GM/DL (3.2-5.2); CALCIUM LEVEL 8.8 MG/DL (8.8-10.2); CREATININE FOR GFR 1.28 MG/DL (0.55-1.02); GLOMERULAR FILTRATION RATE 44.4 (>45); PHOSPHORUS LEVEL 3.5 MG/DL (2.5-4.9); POTASSIUM SERUM 3.4 MEQ/L (3.5-5.1)
[2016-05-17] MEDS: PERCOCET 5MG/325MG TAB PO PRN (14:49)
--- NOTE | 2016-05-17 18:10 | IPNPDOC ---
Date/Time Seen The patient was seen on 05/17/16 at 17:59. Progress Note DATE OF ENCOUNTER: 05/17/2016 SUBJECTIVE: Patient was seen this morning at bedside. She states that she feels well and may go home tomorrow. No acute overnight events. Review of systems is negative for chest pain, palpitations, increased shortness of breath, nausea, vomiting, abdominal pain, diarrhea, fever, chills, headache, dizziness. She is on her baseline oxygen requirement. States that she has been urinating well, no dysuria or hematuria. Reports that cramps in her hands have improved. OBJECTIVE: Vital Signs Date Time Temp Pulse Resp B/P Pulse Ox O2 Delivery O2 Flow Rate FiO2 05/17/16 15:19 18 05/17/16 09:00 84 99/55 05/17/16 09:00 Nasal Cannula 2.0 05/17/16 06:00 97.2 97 I&O- Last 24 Hours up to 6 AM 05/17/16 06:00 Intake Total 1540 ml Output Total 2725 ml Balance -1185 ml GENERAL: Patient is alert and oriented, in no acute distress, sitting up in chair. HEENT: Normocephalic, atraumatic. Extraocular muscles are intact. Moist mucosa. NECK: Supple. Jugular veins are not elevated. HEART: Normal S1-S2. Irregularly irregular. I did not appreciate a murmur. LUNGS: Clear to auscultation bilaterally. ABDOMEN: Morbidly obese. Soft. Nontender. Bowel sounds are present. EXTREMITIES: Lower extremity edema significantly improved. Positive pedal pulses bilaterally. SKIN: Dry and scaly in the lower extremities. NEUROLOGIC: No focal deficits. Moving all extremities. LABORATORY DATA: 05/17/16 10:27 Red Blood Count 3.08 L, Mean Corpuscular Volume 97.3 H, Mean Corpuscular Hemoglobin 31.0, Mean Corpuscular Hemoglobin Concent 31.9 L, Red Cell Distribution Width 16.8 H, Albumin 3.1L, Anion Gap 11, Calcium Level 8.8, Glomerular Filtration Rate 44.4L, Magnesium Level 2.0, Phosphorus Level 3.5 ASSESSMENT AND PLAN: Ms. Magaña is a 66-year-old female with past medical history significant for morbid obesity, chronic systolic and diastolic congestive heart failure, being followed for congestive heart failure (CHF) and fluid overload. 1. Acute on chronic systolic and diastolic congestive heart failure and fluid overload. Patient continues to diurese well. Her creatinine has improved. She remains on torsemide 40 mg twice daily, spironolactone 25 mg twice daily. Metolazone has been changed to 2.5 mg every 48 hours. Continue to monitor her volume status, which is stable at this time. 2. Mild Hypokalemia. Oral potassium supplementation given 3 times daily. 3. Recurrent anemia. She is status post 2 units of packed red blood cells on . She has received a total of 7 units throughout her hospitalization. Her fecal occult blood test was positive and she underwent colonoscopy on 05/15 which just showed nonbleeding internal hemorrhoids and diverticulosis. 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 No source for acute bleeding. She has received Aranesp and continues on iron supplementation daily. Pradaxa has been held due to this, which she takes for atrial fibrillation. 4. Hypertension. She is also on metoprolol in addition to torsemide, metolazone and spironolactone. GME ATTESTATION GME ATTESTATION My preceptor for this patient encounter was physically present in the building during the encounter and was fully available. As needed, all aspects of the patient interview, examination, medical decision making process, and medical care plan development were reviewed and approved by the preceptor. Preceptor is aware and concurs with the plan as stated in the body of this note and will attest to such by his/her cosignature. ATTENDING NOTE Nephrology: Pt was seen today AM. No labs available. Volume status is optimized. Cont current diuretic regimen. ELAINA DAILY DO May 17, 2016 18:10 MORGAN VERA MD May 17, 2016 18:27
[2016-05-17] MEDS ORDERED: POTASSIUM CHLORIDE 10 MEQ SR TABLET PO ONE (18:15)
--- NOTE | 2016-05-17 18:53 | IPNPDOC ---
Assessment/Plan Date Seen The patient was seen on 05/17/16. Problems Problems: (1) Chronic anemia Status: Chronic Response to Treatment: Stable Problem Text: normocytic anemia received venofer, prbc and darbapoietin Recently transfused 2 units on 05/04/16, and has received 5 units total since s/p EGD no active bleed on 05/08/16 , s/p colonoscopy 05/16/[address] Ceballos of GI (7 Total Units of PRBC's now given since admission) She has had no active bleeding since her last transfusion, however she has had 2 stool occult positive samples We have discontinued the Pradaxa after discussing with Cardiology and explaining the risks and benefits associated with this with the patient, followup with cardiology as outpatient to determine when to restart anticoagulation f/u hh transfuse as needed (2) Anasarca Status: Chronic Response to Treatment: Improving Problem Text: due to diastolic congestive heart failure. Patient has been managed on multiple diuretics including torsemide, spironolactone, metolazone by nephrology She has been maintained on a negative fluid balance level over the last few days and her volume status has improved considerably. diuretics as per renal, f/u bun, cr mildly increased (3) CAP (community acquired pneumonia) Status: Resolved Problem Text: Status post completion of trial of ceftriaxone. (4) Constipation Status: Resolved Problem Text: on bowel regimen (5) JANE (obstructive sleep apnea) Status: Chronic Problem Text: cpap (6) Morbid obesity Status: Chronic Problem Text: complicating care (7) Diabetes Status: Chronic Problem Text: insulin as per protocol;, f.u FS (8) Hypertension Status: Chronic (9) COPD (chronic obstructive pulmonary disease) Status: Chronic Problem Text: continue home meds. Respiratory status has returned back to baseline status after adequate diuresis and trial of antibiotics for community acquired pneumonia. (10) CAD (coronary artery disease) Status: Chronic Problem Text: c/w asa, statin, betablocker (11) Hyperlipidemia Status: Chronic Problem Text: statin (12) Mitral stenosis and incompetence Status: Chronic Problem Text: outpatient (13) Pulmonary hypertension Status: Chronic (14) Afib Status: Chronic Problem Text: Pradaxa discontinued as noted above beta alfreda cardiology as outpatient (15) Allergy Status: Chronic Problem Text: continue loratidine (16) CKD (chronic kidney disease) Status: Chronic Problem Text: f/u renal, f/u cr and bun Plan / VTE VTE Prophylaxis Ordered?: Yes (SCD) Plan / Urinary Catheter Reason for insertion/continuin: Other-document below Disposition likely DC tomorrow Subjective Review of Systems CC/HPI The patient is a 66-year-old female admitted with a reason for visit of Acute Respiratory Distress. Events since last encounter no acute events, denied chest pain, sob, fever, chill. Constitutional: Denies: Chills, Fever Eyes: Denies: Vision change ENT: Denies: Head Aches Skin: Denies: Lesions, Rash Pulmonary: Reports: Cough, Denies: Dyspnea Cardiovascular: Denies: Chest Pain, Palpitations Gastrointestinal: Denies: Nausea, Vomiting Genitourinary: Denies: Dysuria, Frequency Hematologic: Denies: Bleeding Excessively, Bruising Objective Physical Examination General Exam: Positive: Alert, Cooperative, No Acute Distress Eye Exam: Positive: Conjunctiva & lids normal, EOMI, PERRLA ENT Exam: Positive: Atraumatic, Mucous membr. moist/pink, Pharynx Normal Neck Exam: Positive: Supple Chest Exam: Positive: Diminished Heart Exam: Positive: Normal S1, Normal S2, Rate Normal, Regular Rhythm Abdomen Exam: Positive: Normal bowel sounds, Soft Extremity Exam: Positive: Other, Swelling Vital Signs/I&O Vital Signs Date Time Temp Pulse Resp B/P Pulse Ox O2 Delivery O2 Flow Rate FiO2 05/17/16 15:19 18 05/17/16 09:00 84 99/55 05/17/16 09:00 Nasal Cannula 2.0 05/17/16 06:00 97.2 97 I&O- Last 24 Hours up to 6 AM 05/17/16 06:00 Intake Total 1540 ml Output Total 2725 ml Balance -1185 ml Laboratory Data Labs 24H Laboratory Tests 2 05/16/16 19:55: Bedside Glucose (Misc Panel) 189H 05/17/16 08:01: Bedside Glucose (Misc Panel) 227H 05/17/16 10:27: Albumin 3.1L, Blood Urea Nitrogen 52H, Creatinine 1.28H, Sodium Level 136, Potassium Level 3.4L, Chloride Level 91L, Carbon Dioxide Level 34H, Anion Gap 11 , Calcium Level 8.8, Glomerular Filtration Rate 44.4L, Magnesium Level 2.0, Phosphorus Level 3.5 05/17/16 11:40: Bedside Glucose (Misc Panel) 114 05/17/16 17:05: Bedside Glucose (Misc Panel) 172H CBC/BMP Laboratory Tests 05/17/16 10:27 Anion Gap 11, Red Blood Count 3.08 L, Mean Corpuscular Volume 97.3 H, Mean Corpuscular Hemoglobin 31.0, Mean Corpuscular Hemoglobin Concent 31.9 L, Red Cell Distribution Width 16.8 H FSBS Laboratory Tests Test 05/16/16 19:55 05/17/16 08:01 05/17/16 11:40 05/17/16 17:05 Range/Units Bedside Glucose (Misc Panel) 189 227 114 172 80-115 MG/DL ELIZ BARBOSA MD May 17, 2016 18:53
[2016-05-17] MEDS: **NOTE PATIENT COMMENT** MISC XX SCH (21:00)
[2016-05-17] MEDS: EUCERIN 120GM CREAM TOP SCH (21:09)
[2016-05-17 22:00] VITALS: BP 125/78
[2016-05-18] MEDS: PERCOCET 5MG/325MG TAB PO PRN (01:27)
[2016-05-18 06:00] VITALS: BP 109/53
[2016-05-18 06:49] LABS: MEAN CORPUSCULAR HEMOGLOBIN 29.9 pg (27.0-33.0); MEAN CORPUSCULAR HGB CONC 31.1 g/dl (32.0-36.5); MEAN CORPUSCULAR VOLUME 96.3 fl (80.0-96.0); RED CELL DISTRIBUTION WIDTH 16.6 % (11.5-14.5); WHITE BLOOD COUNT 9.2 K/mm3 (4.0-10.0)
[2016-05-18 06:56] LABS: REASON FOR REVIEW ANEMIA / RBC MORPH
[2016-05-18 07:19] LABS: CREATININE FOR GFR 1.19 MG/DL (0.55-1.02); GLOMERULAR FILTRATION RATE 48.3 (>45); POTASSIUM SERUM 3.3 MEQ/L (3.5-5.1)
[2016-05-18] MEDS ORDERED: POTASSIUM CHLORIDE 10 MEQ SR TABLET PO ONE (07:30)
[2016-05-18] MEDS: TIOTROPIUM INHALER/CAPSULE (SPIRIVA) INH SCH (07:33)
[2016-05-18] MEDS: IPRATROPIUM 0.5MG/ALBUTEROL 2.5MG INH SOL UD 3ML (DUONEB)(J7620) NEB SCH (07:34)
[2016-05-18] MEDS: BREO ELLIPTA INH SCH (07:34)
[2016-05-18] MEDS: POTASSIUM CHLORIDE 10 MEQ SR TABLET PO SCH (08:05)
[2016-05-18] MEDS: PANTOPRAZOLE 40MG TAB (PROTONIX) PO SCH (08:06)
[2016-05-18] MEDS: FERROUS SULFATE 325MG TAB PO SCH (08:06)
[2016-05-18] MEDS: MULTIVITAMINS/MINERALS THERAP 1 TAB PO SCH (08:06)
[2016-05-18] MEDS: SUCRALFATE 1 GM TAB PO SCH (08:07)
[2016-05-18 08:09] VITALS: BP 95/50
[2016-05-18] MEDS: METOPROLOL TART 12.5 MG PER 1/2 TAB PO SCH (08:09)
[2016-05-18] MEDS: SPIRONOLACTONE 25 MG TAB PO SCH (08:10)
[2016-05-18] MEDS: TORSEMIDE 20 MG TAB PO SCH (08:10)
[2016-05-18] MEDS: ASPIRIN 81 MG ENTERIC TAB PO SCH (08:10)
[2016-05-18] MEDS: ATORVASTATIN 20 MG TAB PO SCH (08:10)
[2016-05-18] MEDS: ASCORBIC ACID 500 MG TAB PO SCH (08:10)
[2016-05-18] MEDS: HumaLOG INSULIN (NovoLOG) PER UNIT SC SCH (08:11)
[2016-05-18] MEDS: EUCERIN 120GM CREAM TOP SCH (08:11)
[2016-05-18] MEDS: LIDOCAINE 5% (LIDODERM) PATCH TD SCH (08:12)
[2016-05-18] MEDS: SENOKOT S TAB PO SCH (08:12)
[2016-05-18] MEDS: NYSTATIN 100,000 UNITS/GM TOPICAL PWD 15 GM TOP SCH (08:13)
[2016-05-18] MEDS ORDERED: NYST10PW TOP (08:43)
[2016-05-18] MEDS ORDERED: DEMA20TA6 PO (08:43)
[2016-05-18] MEDS ORDERED: POTA1TAB14 PO ×2 (08:43→10:37)
[2016-05-18] MEDS ORDERED: FERR325T PO (08:43)
[2016-05-18] MEDS ORDERED: SENN1TAB2 PO (08:43)
[2016-05-18] MEDS ORDERED: VITA-130 PO (08:43)
[2016-05-18] MEDS ORDERED: METO12TA PO (08:43)
[2016-05-18] MEDS ORDERED: METO25TA PO (08:43)
[2016-05-18] MEDS ORDERED: ALDA25TA2 PO (08:43)
[2016-05-18] MEDS ORDERED: metOLazone 2.5 MG TAB PO SCH (09:00)
[2016-05-18] MEDS ORDERED: POTASSIUM CHLORIDE 10 MEQ SR TABLET PO SCH ×2 (09:00→21:00)
--- NOTE | 2016-05-18 11:47 | IPNPDOC ---
Date/Time Seen The patient was seen on 05/18/16 at 11:40. Progress Note DATE OF ENCOUNTER: 05/18/2016 SUBJECTIVE: Patient was seen this morning at bedside. She states that she feels well and is going home today. No acute overnight events. Review of systems is negative for chest pain, palpitations, increased shortness of breath, nausea, vomiting, abdominal pain, diarrhea, fever, chills, headache, dizziness. She is on her baseline oxygen requirement. States that she has been urinating well, no dysuria or hematuria. Reports that cramps in her hands have resolved. OBJECTIVE: Vital Signs Date Time Temp Pulse Resp B/P Pulse Ox O2 Delivery O2 Flow Rate FiO2 05/18/16 08:09 94 95/50 05/18/16 07:49 Nasal Cannula 2.0 05/18/16 06:00 97.2 18 93 I&O- Last 24 Hours up to 6 AM 05/18/16 06:00 Intake Total 360 ml Output Total 2600 ml Balance -2240 ml GENERAL: Patient is alert and oriented, in no acute distress, sitting up in chair. HEENT: Normocephalic, atraumatic. Extraocular muscles are intact. Moist mucosa. NECK: Supple. Jugular veins are not elevated. HEART: Normal S1-S2. Irregularly irregular. I did not appreciate a murmur. LUNGS: Clear to auscultation bilaterally. ABDOMEN: Morbidly obese. Soft. Nontender. Bowel sounds are present. EXTREMITIES: Minimal lower extremity edema. Positive pedal pulses bilaterally. NEUROLOGIC: No focal deficits. Cranial nerves II through XII are grossly intact. Moving all extremities. LABORATORY DATA: 05/18/16 06:27 Calcium Level 9.0, Red Blood Count 3.07 L, Mean Corpuscular Volume 96.3 H, Mean Corpuscular Hemoglobin 29.9, Mean Corpuscular Hemoglobin Concent 31.1 L, Red Cell Distribution Width 16.6 H ASSESSMENT AND PLAN: Ms. Magaña is a 66-year-old female with past medical history significant for morbid obesity, chronic systolic and diastolic congestive heart failure, being followed for congestive heart failure (CHF) and fluid overload. 1. Acute on chronic systolic and diastolic congestive heart failure and fluid overload. Patient continues to diurese well. Her creatinine has improved. She remains on torsemide 40 mg twice daily, spironolactone 25 mg twice daily. Metolazone has been changed to 2.5 mg every 48 hours. Continue to monitor her volume status, which is stable at this time. She was instructed to weigh herself and continue to monitor her weight. If she has greater than 3-4 pound weight gain in 1-2 days, she should call the office. 2. Hypokalemia. Oral potassium supplementation given. Her potassium regimen has been changed to 40 mg twice daily. 3. Recurrent anemia. She is status post 2 units of packed red blood cells on . She has received a total of 7 units throughout her hospitalization. Her fecal occult blood test was positive and she underwent colonoscopy on 05/15 which just showed nonbleeding internal hemorrhoids and diverticulosis. 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 No source for acute bleeding. She has received Aranesp and continues on iron supplementation daily. Pradaxa has been held due to this, which she takes for atrial fibrillation. Continued monitoring as outpatient. 4. Hypertension. She is also on metoprolol in addition to torsemide, metolazone and spironolactone. DISPOSITION: She will be discharged home. She should follow up with nephrology in 1-2 weeks. Continue to monitor her weight and continue with fluid restriction at home. Take medications as instructed. GME ATTESTATION GME ATTESTATION My preceptor for this patient encounter was physically present in the building during the encounter and was fully available. As needed, all aspects of the patient interview, examination, medical decision making process, and medical care plan development were reviewed and approved by the preceptor. Preceptor is aware and concurs with the plan as stated in the body of this note and will attest to such by his/her cosignature. ATTENDING NOTE Nephrology: Pt was examined this AM during work rounds. Diuretic dose adjusted. Volume status is optimized. Renal function is stable. OK to discharge from nephrology standpoint. ELAINA DAILY DO May 18, 2016 11:47 MORGAN VERA MD May 18, 2016 21:43
--- NOTE | 2016-05-19 10:16 | DSES ---
DATE OF ADMISSION: 03/24/2016 DATE OF DISCHARGE: 05/18/2016 PRIMARY CARE PROVIDER: [facility] clinic, Dr. Ho. FIRE EATER: Dr. Osuna and Dr. Melton. DRAGGER: Dr. Ceballos FINAL DIAGNOSES: 1. Anemia. 2. Anasarca. 3. Fluid overload due to diastolic congestive heart failure (CHF). 4. Community-acquired bacterial pneumonia. 5. Constipation. 6. Obstructive sleep apnea. 7. Morbid obesity. 8. Diabetes. 9. Hypertension. 10. Deconditioning. 11. Chronic obstructive pulmonary disease (COPD). 12. Coronary artery disease. 13. Dyslipidemia. 14. Mitral valve stenosis and incompetence. 15. Pulmonary hypertension. 16. Atrial fibrillation. 17. Allergies. 18. Chronic kidney disease (CKD). HISTORY OF PRESENT ILLNESS: This is a 66-year-old female with past medical history of myocardial infarction, congestive heart failure with diastolic dysfunction, COPD, diabetes, dyslipidemia, hypertension presented to [facility] on 03/24/2016 with worsening shortness of breath. Stated that she has had increasing shortness of breath, especially with any type of movement and symptom has been progressively worsening. Patient started having increased oxygen requirement. Baseline, patient is on 3 liter oxygen at home for COPD. Denies any sputum production. Denies worsening cough. Denies any wheezing. Patient has worsening lower extremity swelling, anasarca. Denies any fever or chill. Also having increasing diarrhea for the past week. At baseline, patient has bowel movement once a week. Patient started having 2-3 bowel movements a day, mostly watery, minimal form. Last hospitalization September 2013. Denies any sick contact. Patient was hypotensive on admission. Respiratory rate was tachypneic and hypoxic. IV fluids was give with improvement in blood pressure. Subsequently, patient was admitted. HOSPITAL COURSE: Patient initially was admitted. Treated for sepsis secondary to community-acquired pneumonia. Patient completed antibiotic course. Also have progressively worsening normocytic anemia. During the hospital course, patient was transfused a total of 7 units packed red blood cells (PRBC). Dr. Ceballos from gastroenterology was consulted for fecal occult positive gastrointestinal (GI) bleed status post esophagogastroduodenoscopy (EGD) and colonoscopy with no active bleeding found. The case was discussed with cardiology. Recommend withholding Pradaxa. Patient's hemoglobin and hematocrit subsequently stabilized. Patient also developed on admission anasarca with acute diastolic congestive heart failure. Patient was diuresed. Diuretic was adjusted. Nephrology was consulted. Given patient's history of CKD and not responding very well to diuretics, patient was on torsemide, spironolactone, metolazone as per nephrology. Electrolytes was followed and modified. Patient completed treatment of antibiotics for community-acquired bacterial pneumonia, and oxygen saturation for acute on chronic hypoxic respiratory failure oxygen requirements continually weaned. Bowel regimen was provided. Continuous positive airway pressure (CPAP) was continued. Patient was morbidly obese with deconditioning complicating care. Insulin was provided. Fingerstick was followed. Blood pressure was monitored. Home medication were continued. Kidney function was also monitored. Deep venous thrombosis (DVT) prophylaxis was provided. Furthermore, patient and family services (PFS) was consulted given patient has significant issues at home with heating and pipe bursting. Patient does not have a safe environment to return to. As of right now, it is confirmed that patient's home environment has improved. Patient's hemoglobin and hematocrit is stable with stable respiratory status and stable kidney function. Subsequently, patient is ready for discharge for further care and followup as outpatient. VITAL SIGNS Temperature 97.2, pulse 94, respiration 18, blood pressure 109/53, pulse oximetry 93% on 2 liter nasal cannula. LABORATORY DATA: WBC 9.2, hemoglobin and hematocrit 9.2/29.6, platelets 270. Chemistry: Sodium 134, potassium 3.2, chloride 94, bicarbonate 32, BUN 48, creatinine 1.19. DISCHARGE MEDICATION: - vitamin C 500 mg by mouth daily - ferrous sulfate 325 mg by mouth daily - metolazone 2.5 mg by mouth every 48 hours - metoprolol 12.5 mg by mouth twice a day - nystatin powder twice a day - potassium chloride 40 mEq by mouth twice a day - As per nephrology, Procrit 20,000 units intravenously every 2 weeks injection. - senna 8.6/50 mg by mouth twice a day - spironolactone 25 mg by mouth twice a day - torsemide 40 mg by mouth daily - Ventolin inhaler two puffs every 4 hours as needed - aspirin 81 mg by mouth daily - atorvastatin 40 mg by mouth daily - Flonase nasal spray daily - Breo inhalation daily - Mucinex 600 mg by mouth twice a day - loratadine 10 mg by mouth daily as needed - metformin 500 mg by mouth twice a day - multivitamin one tablet by mouth daily - Spiriva inhalation once daily - Pradaxa has been stopped pending followup with cardiology for further care. DISCHARGE INSTRUCTIONS: Patient is instructed to followup with primary care provider in 7 days and cardiology in 7 days to determine when to restart Pradaxa and followup electrolytes given patient's actively diuresed. Followup with nephrology as outpatient as well. Return to the hospital if symptoms worsen.
== END 2016-05-18 09:55 | disposition home health service (06) | DRG 871 ==
LOC: M ED 13:00 → M ED INP 16:43 → M PCU 18:34 → M MSPAV 03-29 18:07 → M MS5PR 05-02 18:14
PROVIDERS: ADMIT Internal Medicine; ATTEND Internal Medicine
PROC: 0W9B3ZX Drainage of Left Pleural Cavity, Percutaneous Approach, Diagnostic (ICD-10-PCS; principal; 2016-03-27)
PROC: 30253N1 (ICD-10-PCS; 2016-04-18)
PROC: 0DJ08ZZ Inspection of Upper Intestinal Tract, Via Natural or Artificial Opening Endoscopic (ICD-10-PCS; 2016-05-08)
PROC: 0DJD8ZZ Inspection of Lower Intestinal Tract, Via Natural or Artificial Opening Endoscopic (ICD-10-PCS; 2016-05-15)
DX: A41.9 Sepsis, unspecified organism (principal); J15.9 Unspecified bacterial pneumonia; J96.21 Acute and chronic respiratory failure with hypoxia; I50.33 Acute on chronic diastolic (congestive) heart failure; E87.2 Acidosis; J90 Pleural effusion, not elsewhere classified; I47.2 Ventricular tachycardia; L03.115 Cellulitis of right lower limb; Z68.43 Body mass index [BMI] 50.0-59.9, adult; N17.9 Acute kidney failure, unspecified; I13.0 Hypertensive heart and chronic kidney disease with heart failure and stage 1 through stage 4 chronic kidney disease, or unspecified chronic kidney disease; R18.8 Other ascites; J44.9 Chronic obstructive pulmonary disease, unspecified; G47.33 Obstructive sleep apnea (adult) (pediatric); I25.10 Atherosclerotic heart disease of native coronary artery without angina pectoris; K59.00 Constipation, unspecified; E78.5 Hyperlipidemia, unspecified; I27.2 Other secondary pulmonary hypertension; D50.9 Iron deficiency anemia, unspecified; K74.60 Unspecified cirrhosis of liver; K57.30 Diverticulosis of large intestine without perforation or abscess without bleeding; B37.2 Candidiasis of skin and nail; E66.01 Morbid (severe) obesity due to excess calories; E87.6 Hypokalemia; R31.9 Hematuria, unspecified; K31.819 Angiodysplasia of stomach and duodenum without bleeding; I34.2 Nonrheumatic mitral (valve) stenosis; K64.0 First degree hemorrhoids; I48.2 Chronic atrial fibrillation; E11.9 Type 2 diabetes mellitus without complications; I25.2 Old myocardial infarction; D63.1 Anemia in chronic kidney disease; Z95.5 Presence of coronary angioplasty implant and graft; N18.9 Chronic kidney disease, unspecified; Z79.84 Long term (current) use of oral hypoglycemic drugs; Z87.891 Personal history of nicotine dependence; Z79.899 Other long term (current) drug therapy; Z90.49 Acquired absence of other specified parts of digestive tract; Z79.82 Long term (current) use of aspirin; Z79.01 Long term (current) use of anticoagulants; Z99.81 Dependence on supplemental oxygen

== ENCOUNTER → 2016-05-23 | Outpatient (REF) | payer OTHER ==
[~2016-05-23] MED LIST changes: +ALDA25TA2 PO; +BREO1INH3 INH; +DARB30SYRN SC; +DEMA20TA6 PO; +FERR325T PO; +FLON1SPR; +LISI2.5T3 PO; +METO25TA PO; +MUCI600T34 PO; +NYST10PW TOP; +POTA1TAB14 PO; +PROC20004 IV; +SENN1TAB2 PO; +VITA-130 PO
[2016-05-23 13:41] LABS: ALBUMIN 3.2 GM/DL (3.2-5.2); ALBUMIN/GLOBULIN RATIO 0.64 (1.00-1.93); BILIRUBIN,TOTAL 0.6 MG/DL (0.2-1.0); CREATININE FOR GFR 1.01 MG/DL (0.55-1.02); GLOMERULAR FILTRATION RATE 58.4 (>45); POTASSIUM SERUM 3.8 MEQ/L (3.5-5.1); TOTAL PROTEIN 8.2 GM/DL (6.4-8.2)
[2016-05-23 13:50] LABS: BASO # 0.1 K/mm3 (0.0-0.2); BASO % 1.2 % (0.0-1.0); EOS # 0.2 K/mm3 (0.0-0.50); EOS % 2.9 % (0.0-3.0); LARGE UNSTAINED CELL # 0.2 K/mm3 (0.0-0.4); LARGE UNSTAINED CELL % 1.9 % (0.0-4.0); LYMPH # 0.9 K/mm3 (1.5-4.5); LYMPH % 9.4 % (24.0-44.0); MEAN CORPUSCULAR HEMOGLOBIN 28.4 pg (27.0-33.0); MEAN CORPUSCULAR HGB CONC 29.2 g/dl (32.0-36.5); MEAN CORPUSCULAR VOLUME 97.2 fl (80.0-96.0); MONO # 0.4 K/mm3 (0.0-0.8); MONO % 5.3 % (0.0-5.0); NEUTROPHILS # 6.1 K/mm3 (1.8-7.7); NEUTROPHILS % 79.2 % (36.0-66.0); PLATELET COUNT, AUTOMATED 362 k/mm3 (150-450); RED CELL DISTRIBUTION WIDTH 17.1 % (11.5-14.5); WHITE BLOOD COUNT 7.8 K/mm3 (4.0-10.0)
== END ==
LOC: M SFHCPLAZ 11:01
PROVIDERS: ATTEND Internal Medicine
DX: D64.9 Anemia, unspecified (principal); I50.30 Unspecified diastolic (congestive) heart failure; E11.9 Type 2 diabetes mellitus without complications

== ENCOUNTER → 2016-05-30 | Outpatient (REF) | payer OTHER ==
[2016-05-30 19:23] LABS: PERCENT SATURATION 10.1 % (13.2-37.4)
== END ==
LOC: M LAB REF 17:21
PROVIDERS: ATTEND Internal Medicine Nephrology
DX: D50.9 Iron deficiency anemia, unspecified (principal)
CPT/HCPCS: 82728; 83550; G0463

== ENCOUNTER → 2016-06-13 | Outpatient (REF) | payer OTHER ==
[2016-06-13 17:44] LABS: MEAN CORPUSCULAR HEMOGLOBIN 29.6 pg (27.0-33.0); MEAN CORPUSCULAR HGB CONC 30.6 g/dl (32.0-36.5); MEAN CORPUSCULAR VOLUME 96.7 fl (80.0-96.0); RED CELL DISTRIBUTION WIDTH 16.4 % (11.5-14.5); WHITE BLOOD COUNT 8.8 K/mm3 (4.0-10.0)
== END | disposition home or self-care (01) ==
LOC: M SHH 15:41
PROVIDERS: ATTEND Internal Medicine Cardiovascular Disease
DX: D64.9 Anemia, unspecified (principal)

== ENCOUNTER 2016-09-19 15:21 | Emergency (ER) | payer OTHER ==
[~2016-09-19] VITALS: Ht 167.6 cm; Wt 146.5 kg
[2016-09-19 16:11] LABS: BASO % 0.4 % (0.0-1.0); EOS # 0.2 K/mm3 (0.0-0.50); EOS % 2.7 % (0.0-3.0); LARGE UNSTAINED CELL # 0.1 K/mm3 (0.0-0.4); LARGE UNSTAINED CELL % 1.4 % (0.0-4.0); LYMPH % 11.8 % (24.0-44.0); MEAN CORPUSCULAR HEMOGLOBIN 30.6 pg (27.0-33.0); MEAN CORPUSCULAR VOLUME 95.4 fl (80.0-96.0); MONO # 0.5 K/mm3 (0.0-0.8); MONO % 6.9 % (0.0-5.0); NEUTROPHILS % 76.9 % (36.0-66.0); PLATELET COUNT, AUTOMATED 207 k/mm3 (150-450); WHITE BLOOD COUNT 7.8 K/mm3 (4.0-10.0)
[2016-09-19 16:34] LABS: ALBUMIN 3.5 GM/DL (3.2-5.2); ALBUMIN/GLOBULIN RATIO 0.85 (1.00-1.93); ALKALINE PHOSPHATASE 96 U/L (45-117); ALT/SGPT 18 U/L (12-78); ANION GAP 5 MEQ/L (8-16); AST/SGOT 15 U/L (15-37); BILIRUBIN,DIRECT 0.3 MG/DL (0.0-0.2); BILIRUBIN,TOTAL 0.9 MG/DL (0.2-1.0); BLOOD UREA NITROGEN 21 MG/DL (7-18); CARBON DIOXIDE LEVEL 31 MEQ/L (21-32); CHLORIDE LEVEL 102 MEQ/L (98-107); CREATININE FOR GFR 0.97 MG/DL (0.55-1.02); GLOMERULAR FILTRATION RATE > 60.0 (>45); GLUCOSE, FASTING 131 MG/DL (80-110); POTASSIUM SERUM 3.6 MEQ/L (3.5-5.1); SODIUM LEVEL 138 MEQ/L (136-145); TOTAL PROTEIN 7.6 GM/DL (6.4-8.2)
--- NOTE | 2016-09-19 16:34 | REP ---
Clinical: Chest pain. Comparison: 04/18/2016. Findings: Examination is limited by portable technique and underpenetration. Cardiomegaly is again appreciated and unchanged. Pulmonary vasculature and interstitial markings are accentuated due to technique and interstitial edema along with scattered atelectasis and left lower lobe infiltrate/effusion cannot be excluded. Impression: Chronic stable changes. Cannot exclude interstitial edema, basilar atelectasis, left lower lobe consolidation/effusion. Signed by Linden Bruno MD 09/19/2016 04:21 P
[2016-09-19] MEDS ORDERED: ISOVUE-370 76% 100ML VIAL (Q9967) As Ordered ONE (17:18)
--- NOTE | 2016-09-19 17:51 | REP ---
Clinical: Acute chest pain. Technique: Axial contrast enhanced images from the thoracic inlet to the upper abdomen using 100 ml Isovue 370 intravenous contrast material with coronal and sagittal re-formations. Findings: Satisfactory enhancement of the pulmonary vasculature is achieved and no filling defects are identified to suggest pulmonary embolus. Atherosclerotic changes to the thoracic aorta and coronary arteries. Cardiomegaly and early pulmonary vascular congestion is appreciated along with chronic linear scarring in the left upper lobe. No consolidation or effusion. No pneumothorax. Tracheobronchial tree is patent. Mild reactive adenopathy suggested and stable. Surrounding musculoskeletal structures demonstrate age-related changes. Upper abdomen demonstrates normal bilateral adrenal glands. Impression: No evidence for pulmonary embolus. Cardiomegaly and early pulmonary vascular congestion. Chronic linear scarring in the left upper lobe. No consolidation or effusion. Signed by Linden Bruno MD 09/19/2016 05:42 P
[2016-09-19] MEDS ORDERED: PRED20TA PO (22:08)
[2016-09-19] MEDS ORDERED: predniSONE 20 MG TAB PO ONE (22:15)
[2016-09-19 22:30] VITALS: BP 140/64
--- NOTE | 2016-09-20 14:23 | ECGEPIP ---
Stationary ECG Study [facility] - ED Test Date: 2016-09-19 Pat Name: ALMAS MIDDLETON Department: Room: - Gender: F Chief Growth Officer: shonda : 1950 Requested By: Tika Zamora Order Number: [id number] Reading MD: Tika Zamora Measurements Intervals [place] Rate: 72 P: MO: 0 QRS: 96 QRSD: 100 T: 81 QT: 389 QTc: 426 Interpretive Statements ATRIAL FIBRILLATION BORDERLINE RIGHT AXIS DEVIATION LOW QRS VOLTAGE IN PRECORDIAL LEADS INCOMPLETE RIGHT BUNDLE BRANCH BLOCK MODERATE ST DEPRESSION DECREASED RATE 04/06/16 Electronically Signed On 09-20-2016 14:23:12 EDT by Tika Zamora
== END 2016-09-19 22:42 | disposition home or self-care (01) ==
LOC: M ED 15:57
DX: J44.9 Chronic obstructive pulmonary disease, unspecified (principal); R07.89 Other chest pain; R94.31 Abnormal electrocardiogram [ECG] [EKG]; I45.10 Unspecified right bundle-branch block; I48.91 Unspecified atrial fibrillation; R06.02 Shortness of breath; E11.9 Type 2 diabetes mellitus without complications; I10 Essential (primary) hypertension; I25.10 Atherosclerotic heart disease of native coronary artery without angina pectoris; E66.9 Obesity, unspecified; E78.5 Hyperlipidemia, unspecified; D64.9 Anemia, unspecified; Z99.81 Dependence on supplemental oxygen; Z87.891 Personal history of nicotine dependence; Z79.899 Other long term (current) drug therapy; Z79.01 Long term (current) use of anticoagulants; Z79.82 Long term (current) use of aspirin; Z79.51 Long term (current) use of inhaled steroids; Z95.5 Presence of coronary angioplasty implant and graft; Z88.2 Allergy status to sulfonamides; Z88.8 Allergy status to other drugs, medicaments and biological substances
CPT/HCPCS: 36415; 71010; 71275; 80048; 80076; 82550; 82553; 83690; 83880; 84484; 85025; 93005; 93041; 94760; 99285; Q9967

== ENCOUNTER → 2016-10-27 | Outpatient (REF) | payer OTHER ==
[~2016-10-27] MED LIST changes: +ACET-683 PO; +ACET250T2 PO; +AMIO200T PO; -ATOR40TA PO; +ATOR40TA75 PO; -AUGM875T27 PO; +AUGM875T28 PO; +COLA100C5 PO; -DOCU100C PO; +DOCU100C16 PO; +FERR1TAB8 PO; -FERR325T PO; -FURO1TAB15 PO; +FURO80TA2 PO; +HYDR-3713 PO; +MAGN30TA2 PO; +MAGN64TASA PO; -METF500T PO; +METF500T13 PO; +METO1TAB87 PO; -MUCI600T34 PO; +MUCI600T37 PO; +NYST1POW9 TOP; +POTA20TA PO; -PROA1AER INH; +PROAAER10 INH; +SENN1TAB10 PO; +SPIR25TA2 PO; +TORS20TA2 PO; -VITA-130 PO; +VITA500T PO
[2016-10-27 11:45] LABS: BASO % 0.5 % (0.0-1.0); EOS # 0.1 K/mm3 (0.0-0.50); EOS % 1.7 % (0.0-3.0); LARGE UNSTAINED CELL # 0.1 K/mm3 (0.0-0.4); LARGE UNSTAINED CELL % 1.8 % (0.0-4.0); LYMPH # 1.3 K/mm3 (1.5-4.5); LYMPH % 14.9 % (24.0-44.0); MEAN CORPUSCULAR HEMOGLOBIN 30.8 pg (27.0-33.0); MEAN CORPUSCULAR HGB CONC 32.2 g/dl (32.0-36.5); MEAN CORPUSCULAR VOLUME 95.9 fl (80.0-96.0); MONO # 0.6 K/mm3 (0.0-0.8); NEUTROPHILS # 5.8 K/mm3 (1.8-7.7); NEUTROPHILS % 74.2 % (36.0-66.0); PLATELET COUNT, AUTOMATED 228 k/mm3 (150-450); RED CELL DISTRIBUTION WIDTH 15.8 % (11.5-14.5); WHITE BLOOD COUNT 7.8 K/mm3 (4.0-10.0)
[2016-10-27 11:51] LABS: ALBUMIN 3.6 GM/DL (3.2-5.2); CALCIUM LEVEL 9.2 MG/DL (8.8-10.2); CREATININE FOR GFR 1.13 MG/DL (0.55-1.02); GLOMERULAR FILTRATION RATE 51.3 (>45); MAGNESIUM LEVEL 2.1 MG/DL (1.8-2.4); PHOSPHORUS LEVEL 3.4 MG/DL (2.5-4.9); URIC ACID 7.4 MG/DL (2.6-6.0)
== END ==
LOC: M LABDRAWP 11:15 → M LABDRAW1 11:15
PROVIDERS: ATTEND Internal Medicine Nephrology
DX: N18.2 Chronic kidney disease, stage 2 (mild) (principal); D50.9 Iron deficiency anemia, unspecified
CPT/HCPCS: 36415; 80069; 81001; 83735; 84550; 85025; G0463

== ENCOUNTER 2017-02-01 12:51 | Inpatient (IN) | payer OTHER, MEDICARE ==
[~2017-02-01] VITALS: Ht 167.6 cm; Wt 150.5 kg
[~2017-02-01 12:51] MED LIST changes: -ACET-683 PO; -ACET250T2 PO; -AMIO200T PO; -COLA100C5 PO; -HYDR-3713 PO; -MAGN30TA2 PO; -MAGN64TASA PO; -NYST1POW9 TOP; -POTA20TA PO; -SENN1TAB10 PO; -SPIR25TA2 PO; -TORS20TA2 PO
--- NOTE | 2017-02-01 13:32 | REP ---
Chest one-view HISTORY: Cough Comparison: 09/19/2016 A minimal increase in interstitial markings is present in the lungs consistent with chronic interstitial change. The cardiac silhouette is enlarged. The pulmonary vasculature is normal in appearance. Impression: 1. Chronic interstitial change. 2. Cardiomegaly. Signed by Simón Mistry MD 02/01/2017 01:24 P
[2017-02-01 13:33] LABS: BASO % 0.4 % (0.0-1.0); EOS # 0.2 10^3/uL (0.0-0.50); EOS % 1.6 % (0.0-3.0); IMMATURE GRANULOCYTE % 0.5 % (0-0); LYMPH # 0.9 10^3/uL (1.5-4.5); LYMPH % 9.7 % (24.0-44.0); MEAN CORPUSCULAR HEMOGLOBIN 30.5 pg (27.0-33.0); MEAN CORPUSCULAR HGB CONC 30.9 g/dl (32.0-36.5); MEAN CORPUSCULAR VOLUME 98.5 fl (80.0-96.0); MONO # 0.8 10^3/uL (0.0-0.8); MONO % 8.8 % (0.0-5.0); NEUTROPHILS # 7.2 10^3/uL (1.8-7.7); PLATELET COUNT, AUTOMATED 202 10^3/uL (150-450); RED CELL DISTRIBUTION WIDTH 15.5 % (11.5-14.5); WHITE BLOOD COUNT 9.1 10^3/uL (4.0-10.0)
[2017-02-01] MEDS ORDERED: MAGN30TA2 PO (13:37)
[2017-02-01] MEDS ORDERED: COLA100C5 PO (13:37)
[2017-02-01] MEDS ORDERED: HYDR-3713 PO ×2 (13:37→16:25)
[2017-02-01] MEDS ORDERED: ACET-683 PO (13:37)
[2017-02-01] MEDS ORDERED: PRAD150C PO (13:37)
[2017-02-01 13:56] LABS: CALCIUM LEVEL 9.1 MG/DL (8.8-10.2); CREATININE FOR GFR 1.13 MG/DL (0.55-1.02); GLOMERULAR FILTRATION RATE 51.1 (>45); POTASSIUM SERUM 4.5 MEQ/L (3.5-5.1)
[2017-02-01 14:50] LABS: ALBUMIN 3.4 GM/DL (3.2-5.2); ALBUMIN/GLOBULIN RATIO 0.76 (1.00-1.93); BILIRUBIN,DIRECT 0.4 MG/DL (0.0-0.2); BILIRUBIN,TOTAL 1.1 MG/DL (0.2-1.0); TOTAL PROTEIN 7.9 GM/DL (6.4-8.2)
[2017-02-01] MEDS ORDERED: FUROSEMIDE 40 MG/4 ML VIAL (J1940) IV ONE (15:15)
[2017-02-01] MEDS ORDERED: FERR1TAB8 PO (16:25)
[2017-02-01] MEDS ORDERED: POTA20TA PO (16:25)
[2017-02-01] MEDS ORDERED: SPIR25TA2 PO (16:25)
[2017-02-01] MEDS ORDERED: NYST1POW9 TOP (16:25)
[2017-02-01] MEDS ORDERED: TORS20TA2 PO (16:25)
[2017-02-01] MEDS ORDERED: MAGN64TASA PO (16:25)
[2017-02-01] MEDS ORDERED: SENN1TAB10 PO (16:25)
[2017-02-01] MEDS ORDERED: METO25TA PO (16:25)
[2017-02-01] MEDS ORDERED: METO1TAB87 PO (16:25)
[2017-02-01] MEDS ORDERED: ACETAMINOPHEN 500 MG TAB PO PRN (16:30)
[2017-02-01] MEDS ORDERED: ALBUTEROL 90 MCG/ACT 8GM HFA INHALER INH PRN (16:30)
[2017-02-01] MEDS ORDERED: SENNA 8.6 MG TAB (SENOKOT) PO PRN (16:30)
[2017-02-01] MEDS ORDERED: GLUCAGON FOR INJ 1 MG VIAL (J1610) SC PRN (16:45)
[2017-02-01] MEDS ORDERED: IPRATROPIUM 0.5MG/ALBUTEROL 2.5MG INH SOL UD 3ML (DUONEB)(J7620) NEB PRN (16:45)
[2017-02-01] MEDS ORDERED: DEXTROSE 50% 50 ML SYRINGE IV PRN (16:45)
[2017-02-01] MEDS ORDERED: GLUCOSE 4 GM CHEW TABLET PO PRN (16:45)
[2017-02-01 16:53] LABS: THYROXINE (T4) 9.9 UG/DL (4.5-12.0)
[2017-02-01] MEDS: FUROSEMIDE 100 MG/10 ML VIAL (J1940) IV SCH (17:00)
--- NOTE | 2017-02-01 17:28 | HPE ---
DATE OF ADMISSION: 02/01/2017 PRIMARY CARE PROVIDER: [facility] DEBEADER: Dr. Melton PRINTING FILM STRIPPER: Dr. Fletcher PAPER CAP MACHINE OPERATOR: Dr. Ceballos OCCUPATIONAL HEALTH TECHNICIAN: Dr. Choudhary CHIEF COMPLAINT: Shortness of breath for the last one week. HISTORY OF PRESENT ILLNESS: The patient is a 67-year-old female who has been following at nephrology clinic outpatient. Dr. Melton has been adjusting the patient's diuretic regimen. She is on torsemide and spironolactone daily as well as metolazone Sunday, Sunday and Sunday. Her weight has been 330 pounds in the office on 01/02/2017. Baseline creatinine is approximately 1. She presented to the emergency room with progressively worsening shortness of breath, worse when laying flat, dyspnea on exertion. She denied increase or changes in her cough or sputum quality, and at rest, she feels completely normal. She has noted increasing swelling in her legs. Otherwise, she denies sick contacts or recent changes in medications. PAST MEDICAL HISTORY: 1. Diastolic congestive heart failure. 2. Community-acquired pneumonia. 3. Constipation. 4. Obesity hypoventilation syndrome. 5. Morbid obesity. 6. Type 2 diabetes. 7. Hypertension. 8. Heparin-induced thrombocytopenia. 9. Chronic obstructive pulmonary disease (COPD), on chronic one liter of oxygen. 10. Coronary artery disease, status post stents. 11. Dyslipidemia. 12. Mitral valve stenosis with prolapse. 13. Pulmonary hypertension. 14. Paroxysmal atrial fibrillation, on Pradaxa. 15. Chronic kidney disease with a baseline creatinine of approximately 1. ALLERGIES: HEPARIN and SULFA DRUGS. SOCIAL HISTORY: The patient lives at home. She has a 35-pack year history but quit 20 years ago. Denies alcohol or illicit drug use. PAST SURGICAL HISTORY: 1. Status post colon resection in 2009. 2. Coronary stents in 2010. 3. Hernia repair times two. FAMILY HISTORY: Noncontributory. REVIEW OF SYSTEMS: Negative other than in the history of present illness (HPI). HOME MEDICATIONS: - metformin 500 mg by mouth twice a day - torsemide 40 mg daily - Breo Ellipta 200/25 inhaled daily - potassium chloride 40 mEq daily - Extra-Strength Tylenol four times a day as needed for pain - hydrocodone with Tylenol 5/325 one tablet three times a day as needed for pain - Ventolin HFA two puffs inhaled every four hours as needed for shortness of breath - aspirin 81 mg daily - atorvastatin 40 mg at bedtime - Pradaxa 150 mg by mouth twice a day - Colace 100 mg daily as needed for constipation - ferrous sulfate 325 mg daily - loratadine 10 mg as needed for allergies - magnesium chloride 64 mg three times a week on Sunday, Sunday, and Sunday - metolazone 2.5 mg three times a week on Sunday, Sunday, and Sunday - metoprolol tartrate 12.5 mg by mouth twice a day - multivitamin one tablet daily - Nystatin powder topically twice a day - Senna 8.6 mg twice a day as needed for constipation - spironolactone 25 mg by mouth twice a day - Spiriva HandiHaler inhaled once daily PHYSICAL EXAMINATION: Temperature 97.6, pulse 76, respiratory rate 20, blood pressure 90/51, oxygen saturation 95% on one liter. GENERAL: She is a morbidly obese, elderly, female laying on her left side. She does not appear to be in any acute distress whatsoever. She is comfortable and no accessory muscle use. She does not appear to be in respiratory distress. HEENT: She has an enlarged neck. Poor dentition. Moist mucous membranes. Difficult to assess for any elevation in central venous pressure. CARDIOVASCULAR EXAMINATION: S1, S2, regular but distant secondary to body habitus. RESPIRATORY EXAMINATION: Bibasilar rales but otherwise fairly clear with good air movement. No wheeze appreciated. No significant prolonged expiratory phase appreciated. ABDOMINAL EXAMINATION: Grossly obese with edema to the pannus. EXTREMITIES: Lower extremity edema as well. No clubbing or cyanosis. LABORATORY STUDIES: WBC 9.1, hemoglobin 12.5, hematocrit 40.4, platelet count 202. Chemistry panel: Sodium 139, potassium 4.5, chloride 107, bicarbonate 26, BUN 21, creatinine 1.1, pro BNP is 2720. One set of cardiac enzymes is negative. MICROBIOLOGY: An influenza swab is negative. Blood cultures are currently pending. IMAGING STUDIES: The patient did have a chest x-ray that revealed chronic interstitial change and cardiomegaly. ASSESSMENT AND PLAN: This is a 67-year-old female with decompensated diastolic congestive heart failure. PROBLEM LIST: 1. Decompensated diastolic congestive heart failure. I did discuss the case with Dr. Melton who informed me that Dr. Olvin Osuna will be able to see the patient tomorrow. In the meantime, we agreed that beginning more aggressive diuresis is the best plan of care. She will be started on 80 mg of IV Lasix twice a day. I will change her metolazone to daily with a goal of net negative two liters per day to see if her symptoms do improve. We will continue her aldactone with holding parameters. We will monitor her renal function and electrolytes closely while undergoing diuresis and see if her respiratory status is able to improve back to her baseline. She will be admitted to the progressive care unit. We will monitor her cardiac enzymes as she is having shortness of breath. She will be on a fluid restricted diet. 2. Dysphagia. She mentioned to me that the last two days she has had difficulty swallowing pills, especially the potassium. It is not surprising given their size. However, I will request a speech therapy evaluation to ensure that she is able to take all of her medications as prescribed. 3. Hypomagnesemia. Continue with supplementation. 4. Hypertension. She will be on diuresis and we will continue her home antihypertensives with beta alfreda and spironolactone. 5. Constipation. Continue with her home bowel regimen. 6. Obesity hypoventilation syndrome and obesity complicating care. 7. Type 2 diabetes. Sliding scale insulin. 8. Chronic kidney disease, fairly stable. Continue to monitor while undergoing diuresis. Continue with her diuretics and antihypertensives. 9. Chronic obstructive pulmonary disease (COPD). Continue with one liter of oxygen and her home inhalers. I doubt this is a decompensation of her COPD. No increasing cough or sputum and she is perfectly asymptomatic at rest. We will provide her with nebulizer treatments. 10. Heparin-induced thrombocytopenia. Avoid heparin products. 11. Mitral stenosis prolapse and pulmonary hypertension. She likely has some baseline respiratory compromise and the above is certainly not helping. We will try and optimize her volume status. 12. Paroxysmal atrial fibrillation. She is rate controlled with a beta alfreda and anticoagulated with Pradaxa. 13. Iron deficiency anemia. Continue with supplementation. 14. Elevated thyroid-stimulating hormone (TSH). We will check a thyroid profile. DISPOSITION: The patient is admitted to Dr. Medina's service who will continue following the patient at 7:00 a.m.
[2017-02-01] MEDS: HumaLOG INSULIN (NovoLOG) PER UNIT SC SCH ×2 (17:30→21:00)
--- NOTE | 2017-02-01 19:10 | REPUSA ---
CLINICAL HISTORY: R/o DVT. COMMENTS: Real time sonography with duplex doppler of the extremities bilaterally was performed with attention to the major deep venous structures. Evaluation reveals the common femoral, superficial femoral and popliteal veins bilaterally to be comp letely compressible without intraluminal thrombus. There is normal spontaneous phasic flow and augmen tation in all deep veins. The greater saphenous/common femoral vein junctions are patent bilaterally. IMPRESSION: No evidence of DVT in the lower extremities bilaterally. Thank you for your kind referral of this patient.
[2017-02-01] MEDS: IPRATROPIUM 0.5MG/ALBUTEROL 2.5MG INH SOL UD 3ML (DUONEB)(J7620) NEB SCH (19:51)
[2017-02-01 20:00] VITALS: BP 114/76
[2017-02-01 21:00] VITALS: BP 121/56
[2017-02-01] MEDS: METOPROLOL TART 25 MG TABLET PO SCH (21:00)
[2017-02-01] MEDS: SPIRONOLACTONE 25 MG TAB PO SCH (21:04)
[2017-02-01] MEDS: ATORVASTATIN 20 MG TAB PO SCH (21:04)
[2017-02-01] MEDS: metOLazone 2.5 MG TAB PO SCH (21:04)
[2017-02-01] MEDS: DABIGATRAN ETEXILATE 75 MG CAP (PRADAXA) PO SCH (21:05)
[2017-02-01] MEDS: NYSTATIN 100,000 UNITS/GM TOPICAL PWD 15 GM TOP SCH (21:05)
[2017-02-02] VITALS (8 sets, daily range): BP systolic 96–124; BP diastolic 47–77
[2017-02-02] MEDS: IPRATROPIUM 0.5MG/ALBUTEROL 2.5MG INH SOL UD 3ML (DUONEB)(J7620) NEB SCH ×4 (01:05→20:37)
[2017-02-02 07:19] LABS: MEAN CORPUSCULAR HEMOGLOBIN 30.1 pg (27.0-33.0); RED CELL DISTRIBUTION WIDTH 15.5 % (11.5-14.5); WHITE BLOOD COUNT 7.7 10^3/uL (4.0-10.0)
[2017-02-02] MEDS: HumaLOG INSULIN (NovoLOG) PER UNIT SC SCH ×4 (07:30→21:00)
[2017-02-02 07:50] LABS: CREATININE FOR GFR 1.01 MG/DL (0.55-1.02); GLOMERULAR FILTRATION RATE 58.2 (>45); MAGNESIUM LEVEL 1.8 MG/DL (1.8-2.4); POTASSIUM SERUM 3.8 MEQ/L (3.5-5.1)
--- NOTE | 2017-02-02 07:53 | REP ---
Portable chest, 06:20 a.m., 02/02/2017. Comparisons are 02/01 2017 and 09/19/[address] of 09/19/2016. There is chronic marked cardiomegaly, unchanged. There is mild interstitial coarsening, unchanged, compatible with vascular engorgement. There is focal atelectasis in the left upper lobe, slightly increased. There is no right pleural effusion. The left costophrenic angle is obscured. Signed by Darinel Miranda MD 02/02/2017 07:45 A
[2017-02-02] MEDS: TIOTROPIUM INHALER/CAPSULE (SPIRIVA) INH SCH (08:41)
[2017-02-02] MEDS: METOPROLOL TART 25 MG TABLET PO SCH ×2 (09:00→21:00)
[2017-02-02] MEDS ORDERED: MAGNESIUM CHLORIDE 64 MG TABCR (SLO MAG) PO PRN (09:00)
[2017-02-02] MEDS: NYSTATIN 100,000 UNITS/GM TOPICAL PWD 15 GM TOP SCH ×2 (09:00→21:00)
[2017-02-02] MEDS: LORATADINE 10 MG TAB PO PRN (10:11)
[2017-02-02] MEDS: MULTIVITAMINS/MINERALS THERAP 1 TAB PO SCH (10:11)
[2017-02-02] MEDS: DOCUSATE SODIUM 100 MG CAP PO PRN (10:11)
[2017-02-02] MEDS: metOLazone 2.5 MG TAB PO SCH (10:11)
[2017-02-02] MEDS: DABIGATRAN ETEXILATE 75 MG CAP (PRADAXA) PO SCH ×2 (10:11→21:16)
[2017-02-02] MEDS: ASPIRIN 81 MG ENTERIC TAB PO SCH (10:11)
[2017-02-02] MEDS: FERROUS SULFATE 325MG TAB PO SCH (10:12)
[2017-02-02] MEDS: SPIRONOLACTONE 25 MG TAB PO SCH ×2 (10:12→21:00)
[2017-02-02] MEDS: FUROSEMIDE 100 MG/10 ML VIAL (J1940) IV SCH ×2 (10:14→17:53)
--- NOTE | 2017-02-02 11:12 | IPN ---
DATE OF SERVICE: 02/02/2017 SUBJECTIVE: Patient is seen and examined at the bedside. Chart has been reviewed. She states that her breathing is not much improved. No fever or chills. Increased lower extremity edema. Temperature 97.7, pulse 68, respiratory rate 18, blood pressure 118/50 and 95% on 1 liter nasal cannula. Generally, the patient is awake, alert and oriented times three, answering questions appropriately. No use of respiratory accessory muscles. Morbidly obese female sitting at the bedside. Enlarged neck. Poor dentition. Moist mucous membranes. Difficult to assess jugular venous distention (JVD). Lungs: Bibasilar rales, otherwise clear with good air entry in upper lobes. Heart: S1, S2, sinus rhythm. Abdomen is obese, soft, nontender, nondistended, with some edema to the pannus. Extremities: Chronic lower extremity edema. No clubbing or cyanosis. LABORATORY DATA/MICROBIOLOGY/IMAGING STUDIES: Have been reviewed. Chest x-ray on 02/03/2016 repeated shows no right pleural effusion, cardiomegaly, mild interstitial coarsening compatible with vascular engorgement with focal atelectasis in the left upper lobe which is slightly increased. ASSESSMENT AND PLAN: This is a 67-year-old, morbidly obese female, body mass index (BMI) is 57 complicating care, with diastolic heart failure, obesity hypoventilation syndrome, type 2 diabetes, hypertension, heparin induced thrombocytopenia, chronic obstructive pulmonary disease (COPD) on chronic 1 liter of oxygen, coronary artery disease (CAD) status post stent, dyslipidemia, mitral valve stenosis with prolapse, pulmonary hypertension, paroxysmal atrial fibrillation on chronic Pradaxa, and chronic kidney disease with baseline creatinine of 1, who presents to the emergency room with worsening shortness of breath for the past one week. The patient has been seen by digital campaign manager, Dr. Melton, as outpatient who has been adjusting her diuretic medication. She has been on torsemide, spironolactone, as well as metolazone Sunday, Sunday, Sunday, and her weight has been 330 pounds in the office. She has noted increasing swelling of her legs and worsening shortness of breath, admitted for fluid overload. CURRENT ISSUES (are as follows): 1. Decompensated diastolic heart failure. Dr. Olvin Osuna will see the patient this morning. She was given 80 mg IV Lasix twice a day. Metolazone was changed to daily. Defer to Dr. Osuna for further diuresis. 2. Dysphagia. Speech therapy evaluation. 3. Hypomagnesemia. Continue supplementation. 4. Hypertension. On diuresis. Continue home antihypertensive. 5. Constipation. Bowel regimen. 6. Obesity hypoventilation syndrome and morbid obesity complicating care. 7. Obstructive sleep apnea. Resume home dose of CPAP. 8. Type 2 diabetes. Consistent carbohydrate and renal diet. Sliding scale. 9. Chronic obstructive pulmonary disease. On chronic home oxygen at 1 liter. 10. Mitral valve stenosis with prolapse and pulmonary hypertension. Stable. 11. Paroxysmal atrial fibrillation. Rate controlled with beta alfreda, anticoagulated with Pradaxa. 12. Iron deficiency anemia. Continue with supplementation. 13. Elevated TSH with normal T4, T3. Low dose Synthroid as outpatient.
[2017-02-02] MEDS: NORCO, ANEXSIA 5/325MG TABLET (HYDROcodone/ACETAMINOPHEN) PO PRN ×2 (12:41→21:22)
[2017-02-02] MEDS: ATORVASTATIN 20 MG TAB PO SCH (21:16)
[2017-02-03] VITALS (13 sets, daily range): BP systolic 90–135; BP diastolic 48–62
[2017-02-03] MEDS: IPRATROPIUM 0.5MG/ALBUTEROL 2.5MG INH SOL UD 3ML (DUONEB)(J7620) NEB SCH ×4 (00:53→20:05)
--- NOTE | 2017-02-03 01:54 | CR ---
DATE OF CONSULTATION: 02/02/2017 REQUESTING PHYSICIAN: Jero Meade MD. REASON FOR CONSULTATION: Diuretic management for volume overload. HISTORY OF PRESENT ILLNESS: The patient is a 67-year-old female with past medical history of morbid obesity, diastolic congestive heart failure, obesity hypoventilation syndrome, chronic obstructive pulmonary disease, coronary artery disease status post stent, mitral valve stenosis with prolapse, paroxysmal atrial fibrillation on Pradaxa, type 2 diabetes, hypertension. She has a history of recurrent volume overload. She follows up with Dr. Melton in the nephrology office for tailoring of her diuretic regimen. She notes a weight gain of reported 20 pounds within the past few months. She is currently on torsemide 40 mg by mouth daily, spironolactone 25 mg by mouth twice a day, and metolazone 2.5 mg Sunday, Sunday, and Sunday. She has a baseline creatinine of approximately 1. Most of her edema is in her abdomen. She presented to the emergency room with progressive worsening of shortness of breath and dyspnea on exertion and increasing abdominal girth. PAST MEDICAL HISTORY: 1. Diastolic congestive heart failure. 2. Obesity hypoventilation syndrome. 3. Morbid obesity. 4. Hypertension. 5. Type 2 diabetes. 6. Heparin-induced thrombocytopenia. 7. Chronic obstructive pulmonary disease (COPD). 8. Coronary artery disease (CAD) status post stent. 9. Pulmonary hypertension. 10. Paroxysmal atrial fibrillation on Pradaxa. ALLERGIES: HEPARIN and SULFA DRUGS. SOCIAL HISTORY: The patient has a 35 pack-year history, quit about 20 years ago. She denies alcohol or drugs. PAST SURGICAL HISTORY: 1. Colon resection in 2009. 2. Coronary stent 2010. 3. Hernia repair history. FAMILY HISTORY: Negative for end-stage renal disease. REVIEW OF SYSTEMS: As per history of present illness. HOME MEDICATIONS: Reviewed and include: - spironolactone 25 mg by mouth twice a day - metolazone 2.5 mg three times a week - torsemide 40 mg by mouth daily - metformin 500 mg twice a day - aspirin - statin - Pradaxa - magnesium and potassium supplements - metoprolol 12.5 mg by mouth twice a day - Spiriva - Breo Ellipta PHYSICAL EXAMINATION: Temperature 97.4, pulse 80, respiratory rate 20, blood pressure 119/60, saturating 97% on 1 liter nasal cannula. INTAKE AND OUTPUT: Urine output yesterday 1.8 liters. Weight in the bed scale today 153.2 kg. GENERAL: Patient is seen in the emergency room in no acute distress in the stretcher. She is morbidly obese lying on her left lateral recumbent side. She is in no distress. HEAD AND NECK: Moist mucous membranes. Extraocular muscles intact. Unable to assess for jugular venous distention due to her body habitus. CARDIOVASCULAR: Distant S1 and S2. No edema in the upper extremities. 1+ edema present in the lower extremities. RESPIRATORY: Symmetric bilateral air movement with mild crackle at the base. ABDOMEN: Severely protuberant and obese. Her abdominal pannus has marked induration consistent with edema. EXTREMITIES: 1+ edema in the extremities below the knee. No dependent edema at the hip. PSYCHIATRIC: Appropriate mood and affect. NEUROLOGIC: No focal deficit. LABORATORIES: Sodium 140, potassium 3.8, bicarbonate 31, creatinine 1.0, BNP 2700, magnesium 1.8. WBC 7.7, hemoglobin 12.1, platelets 175. Microbiology: Blood cultures with no growth for 24 hours. IMAGING: Chest x-ray done today shows vascular engorgement and obscured left costophrenic angle. Vascular duplex of the lower extremities done 02/01 shows no DVT. INPATIENT MEDICATIONS: - DuoNeb every six - aspirin 81 mg by mouth daily - atorvastatin 40 mg by mouth nightly - Pradaxa 150 mg by mouth twice a day - ferrous 325 mg by mouth daily - Lasix 80 mg intravenously (IV) twice a day - insulin - Slow-Mag - metolazone 2.5 mg by mouth daily - metoprolol 12.5 mg by mouth twice a day - spironolactone 25 mg by mouth twice a day - tiotropium one inhalation daily ASSESSMENT AND PLAN: 67-year-old female admitted with volume overload secondary to decompensated diastolic heart failure. 1. Hypervolemia secondary to decompensated heart failure. The patient's last echocardiogram from March 2016 is reviewed. It was a very poor quality study due to the patient's severe obesity; however, it was suggestive of grade 2 diastolic dysfunction and probable right ventricle hypokinesis. As an outpatient, the patient's current diuretic regimen is torsemide 40 mg by mouth daily, Aldactone 25 mg twice a day, and metolazone 2.5 mg Sunday, Sunday, Sunday. She has been retaining fluid and gaining weight on that regimen. She is currently started by Dr. Meade on Lasix 80 mg intravenously (IV) twice a day, daily metolazone, and continuation of Aldactone. Her renal function is at known baseline. She is diuresing well on current regimen. If she develops hypokalemic alkalosis, we can substitute amiloride in the place of Aldactone. She does have a history of nonsustained ventricular tachycardia (V-TACH); hence close attention to her magnesium and her potassium while we try to mobilize the fluids. It is interesting to see how much of her edema is in her abdominal body fat. 2. Paroxysmal atrial fibrillation. Patient is rate controlled with metoprolol and anticoagulated with Pradaxa. 3. Morbid obesity and obesity hypoventilation syndrome complicating her care. 4. Hypertension. Currently well controlled on regimen. 5. History of chronic obstructive pulmonary disease (COPD). Currently stable on her home inhalers. Thank you for involving us in the care of this patient. I will follow the patient with you. ADELE
[2017-02-03] MEDS: diltiaZEM 125 MG in NS 100 ML IV SCH ×2 (03:10→15:30)
[2017-02-03 03:26] LABS: MEAN CORPUSCULAR VOLUME 96.5 fl (80.0-96.0); RED CELL DISTRIBUTION WIDTH 15.4 % (11.5-14.5); WHITE BLOOD COUNT 8.6 10^3/uL (4.0-10.0)
[2017-02-03 03:55] LABS: CALCIUM LEVEL 9.2 MG/DL (8.8-10.2); CREATININE FOR GFR 1.12 MG/DL (0.55-1.02); GLOMERULAR FILTRATION RATE 51.7 (>45); MAGNESIUM LEVEL 1.7 MG/DL (1.8-2.4); POTASSIUM SERUM 3.5 MEQ/L (3.5-5.1)
--- NOTE | 2017-02-03 04:41 | IPNPDOC ---
Subjective Date Seen The patient was seen on 02/03/17. Subjective Chief Complaint/HPI The patient is a 67-year-old female admitted with a reason for visit of CHF. Assessment /Plan Assessment Overnight provider called for rates in 150's, stat ekg demonstrated v-tach, pt was started on cardizem drip with close attention to blood pressure. Pt continued to have a. flutter with rates into the 150s intermittently after drip was initiated, with rates also dropping into the 70-80's. Pt was kept NPO in anticipation of possible cardioversion. Internet Sales Director travel accommodation inspector was consulted Dr. Wiseman, who recommended .25 mg Digoxin stat x1, will see pt today. Plan/VTE VTE Prophylaxis Ordered?: Yes VS, I&O, 24H, Fishbone Vital Signs/I&O Vital Signs Date Time Temp Pulse Resp B/P (MAP) Pulse Ox O2 Delivery O2 Flow Rate FiO2 02/03/17 04:17 101/50 (67) 02/03/17 04:00 98.2 152 20 91 Nasal Cannula 2.0 Laboratory Data 24H LABS Laboratory Tests 2 02/02/17 06:53: Anion Gap 4L, Glomerular Filtration Rate 58.2, Blood Urea Nitrogen 21H, Creatinine 1.01, Sodium Level 140, Potassium Level 3.8, Chloride Level 105, Carbon Dioxide Level 31, Calcium Level 9.0, Magnesium Level 1.8, Troponin I 0.04 , IS-[id number]-Type Natriuretic Peptide 2726H 02/02/17 12:12: Bedside Glucose (Misc Panel) 118H 02/02/17 17:43: Bedside Glucose (Misc Panel) 120H 02/02/17 21:14: Bedside Glucose (Misc Panel) 115 02/03/17 02:57: Anion Gap 5L, Glomerular Filtration Rate 51.7, Blood Urea Nitrogen 21H, Creatinine 1.12H, Sodium Level 138, Potassium Level 3.5, Chloride Level 96L, Carbon Dioxide Level 37H, Calcium Level 9.2, Total Creatine Kinase 54, Magnesium Level 1.7L, Creatine Kinase MB 1.7, Creatine Kinase MB Relative Index 3.14, Troponin I 0.06# CBC/BMP Laboratory Tests 02/02/17 06:53 Red Blood Count 4.02, Mean Corpuscular Volume 97.0 H, Mean Corpuscular Hemoglobin 30.1, Mean Corpuscular Hemoglobin Concent 31.0 L, Red Cell Distribution Width 15.5 H, Calcium Level 9.0 02/03/17 02:57 Red Blood Count 4.34, Mean Corpuscular Volume 96.5 H, Mean Corpuscular Hemoglobin 30.0, Mean Corpuscular Hemoglobin Concent 31.0 L, Red Cell Distribution Width 15.4 H, Calcium Level 9.2, Total Creatine Kinase 54 Microbiology Microbiology 02/01/17 Blood Culture - Preliminary, Resulted No growth after 24 hours . All specim... 02/01/17 Blood Culture - Preliminary, Resulted No growth after 24 hours . All specim... 02/01/17 Influenza Virus Type A Antigen - Final, Complete 02/01/17 Influenza Virus Type B Antigen - Final, Complete GME ATTESTATION GME ATTESTATION My preceptor for this patient encounter was physically present in the building during the encounter and was fully available. As needed, all aspects of the patient interview, examination, medical decision making process, and medical care plan development were reviewed and approved by the preceptor. Preceptor is aware and concurs with the plan as stated in the body of this note and will attest to such by his/her cosignature. KATELIN SINGH DO Feb 03, 2017 04:41
[2017-02-03] MEDS ORDERED: DIGOXIN INJ 0.5 MG/2 ML AMP (J1160) IV STA ×2 (04:59→09:00)
[2017-02-03] MEDS ORDERED: MAG SULF 1GM/100ML (MAG RUN) 1 GM in APPROPRIATE DILUENT 1 EA IV ONE ×2 (05:00→06:45)
[2017-02-03] MEDS ORDERED: GLUCAGON FOR INJ 1 MG VIAL (J1610) SC PRN (05:00)
[2017-02-03] MEDS ORDERED: DEXTROSE 50% 50 ML SYRINGE IV PRN ×2 (05:00→09:15)
[2017-02-03] MEDS ORDERED: GLUCOSE 4 GM CHEW TABLET PO PRN (05:00)
--- NOTE | 2017-02-03 05:25 | ECGEPIP ---
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
[2017-02-03] MEDS ORDERED: HumaLOG INSULIN (NovoLOG) PER UNIT SC SCH (06:00)
[2017-02-03] MEDS ORDERED: POTASSIUM CHLORIDE 10 MEQ SR TABLET PO ONE (06:45)
[2017-02-03] MEDS: TIOTROPIUM INHALER/CAPSULE (SPIRIVA) INH SCH (07:11)
[2017-02-03] MEDS: NORCO, ANEXSIA 5/325MG TABLET (HYDROcodone/ACETAMINOPHEN) PO PRN ×2 (07:16→17:27)
[2017-02-03] MEDS: SPIRONOLACTONE 25 MG TAB PO SCH (09:00)
[2017-02-03] MEDS: FUROSEMIDE 40 MG/4 ML VIAL (J1940) IV SCH ×2 (09:00→17:27)
[2017-02-03] MEDS: metOLazone 2.5 MG TAB PO SCH (09:00)
[2017-02-03] MEDS ORDERED: FUROSEMIDE 100 MG/10 ML VIAL (J1940) IV SCH (09:00)
[2017-02-03] MEDS: DABIGATRAN ETEXILATE 75 MG CAP (PRADAXA) PO SCH ×2 (09:47→21:05)
[2017-02-03] MEDS: MULTIVITAMINS/MINERALS THERAP 1 TAB PO SCH (09:47)
[2017-02-03] MEDS: FERROUS SULFATE 325MG TAB PO SCH (09:47)
[2017-02-03] MEDS: ASPIRIN 81 MG ENTERIC TAB PO SCH (09:47)
[2017-02-03] MEDS: NYSTATIN 100,000 UNITS/GM TOPICAL PWD 15 GM TOP SCH ×2 (09:51→21:05)
[2017-02-03] MEDS ORDERED: POTASSIUM CHLORIDE 10% LIQ 20 MEQ/15 ML UDC PO ONE (10:45)
[2017-02-03] MEDS: MAGNESIUM OXIDE 400 MG TAB (MAG-OX) PO SCH (12:01)
[2017-02-03] MEDS: METOPROLOL TART 12.5 MG PER 1/2 TAB PO SCH ×2 (12:01→21:12)
--- NOTE | 2017-02-03 12:51 | CR ---
DATE OF CONSULTATION: 02/03/2017 REFERRING PROVIDER: Dr. Lilly Medina. REASON FOR CONSULTATION: Atrial fibrillation with a rapid ventricular rate. PRIMARY QUALIFICATION ENGINEER: Dr. Carmelina Choudhary. AIRCRAFT FUELER: Dr. Melton. WEBSITE/BLOG EDITOR: Dr. Jose Fletcher. HISTORY OF PRESENT ILLNESS: 67-year-old women wandering by the office and she usually sees Dr. Choudhary. She has a history of coronary artery disease with percutaneous transluminal coronary angioplasty (PTCA)/stent, normal LVEF. She also has a history of paroxysmal atrial fibrillation, valvular heart disease involving the mitral valve, morbid obesity and probably sleep apnea, congestive heart failure , left ventricular diastolic dysfunction, hypertension, diabetes mellitus, hyperlipidemia, chronic kidney disease that has been stable and heparin induced thrombocytopenia. She was admitted on 02/01/2017 with acute on chronic decompensated congestive heart failure secondary to left ventricular diastolic dysfunction. Her diuretics are being managed by nephrology. Last night, she went into atrial fibrillation with a rapid ventricular rate of about 150 beats per minute. She was started on IV Cardizem and cardiology consultation was called because of low blood pressure. Digoxin was added, IV and this morning, when I saw her, her heart rate is under control at about 80-100 beats per minute. When I saw Mrs. Francisca Magaña in her room, she was sitting in the chair in no acute distress, very pleasant woman. She denies any chest pain and there is no shortness of breath or orthopnea. She denies any palpitations even when her heart rate was going fast. There is no report of bleeding. She states that she has lost a significant amount of weight and her shortness of breath has improved significantly. She has no cough or hemoptysis. There is no report of diarrhea or vomiting. She stated she usually takes her medication regularly and it has been difficult to control her fluid retention, she goes to nephrology every 1-2 months. PAST SURGICAL HISTORY: Positive for colon resection in 2010, hernia repair, otherwise unremarkable. FAMILY HISTORY: Noncontributory. SOCIAL HISTORY: The patient lives at home and she denies any smoking or EtOH abuse. She quit smoking about 20 years ago. ALLERGIES: HEPARIN AND SULFA DRUGS. ADVANCED DIRECTIVES: The patient is a FULL CODE. MEDICATIONS AT HOME: - metformin 400 mg by mouth twice a day - atorvastatin 40 mg by mouth daily - torsemide 40 mg by mouth daily - Breo Ellipta 200/25 inhalation daily - KCL 40 mEq by mouth daily - hydrocodone 5/325 one tablet three times a day as needed for pain - Ventolin HFA two puffs via inhalation every 4 hours as needed for shortness of breath - aspirin 81 mg by mouth daily - Pradaxa 150 mg by mouth twice a day - Colace 100 mg by mouth daily for constipation - ferrous sulfate 325 mg by mouth daily - loratadine 10 mg by mouth as needed for allergies - Slow-Mag 64 mg by mouth three times a day on Sunday, Sunday and Sunday. - metolazone 2.5 mg by mouth three times a day on Sunday, Sunday and Sunday. - metoprolol 12.5 mg by mouth twice a day - multivitamin one tablet by mouth daily - Nystatin STADA apply to the affected skin - senna as needed for constipation, twice daily in tablet of 8.6 mg - spironolactone 25 mg by mouth twice a day - Spiriva inhaler via inhalation one puff daily CURRENT MEDICATIONS: - potassium chloride 40 mg by mouth daily - furosemide 40 mg IV every 12 hours - Mag-Ox 500 mg by mouth daily - Diltiazem drip running at 10/hour - aspirin 81 mg by mouth daily - ferrous sulfate 325 mg by mouth daily - Slow-Mag 64 mg by mouth 64 mg tablet on Sunday, Sunday and Sunday - multivitamin one tablet by mouth daily - Spiriva inhaler one inhalation daily - atorvastatin 40 mg by mouth nightly - Pradaxa/dabigatran 150 mg by mouth twice a day - Nystatin applied to the affected skin as needed. - spironolactone 25 mg by mouth twice a day - DuoNeb 0.5 mg/2.5 mg every 6 hours inhalation and every 2 hours a needed for shortness of breath or wheezing. - Tylenol 500 mg by mouth four times a day as needed for pain or fever - Colace 100 mg by mouth daily as needed for constipation - loratadine 10 by mouth daily as needed for allergies - senna one tablet by mouth twice a day On physical examination, the patient is alert oriented, in no acute distress, very pleasant. Her last vital signs today revealed a blood pressure of 90/48 with a pulse of 77 , respiration 18-20, and her maximum temperature is 98.1 degree Fahrenheit with a oxygen saturation of 91% on 2 liters of nasal cannula. Examination of the head is normocephalic, atraumatic. Neck: Supple, I could not appreciate any carotid bruits or jugular venous distention. The lungs did not reveal any wheezing or crackles. The heart examination revealed irregularly irregular heart sounds without gallops. The point of maximum impulse (PMI) is not displaced. There is no rub. Could not appreciate any murmurs. Abdomen is protuberant, soft. Extremities revealed trace to +1 bilaterally over the ankle and lower leg edema. Neurological examination grossly is negative for focal deficit. LABS: CBC revealed a WBC of 8.6, hemoglobin 13.0, hematocrit 41.9 and platelet 199, 000. BMP done today revealed a sodium of 138, potassium 3.5, chloride 96, CO2 37, BUN 21, creatinine 1.12, GFR 51.7 and fasting glucose 118 with a calcium of 9.2. Serum magnesium is 1.7. Serum troponin is 0.04, 0.04, and 0.06 respectively, #1 , #2 and #3 starting last night at about 1-o'clock. Serum for BNP during the night was 2198. Yesterday morning 02/02/2017 it was 2726. Telemetry revealed atrial fibrillation with a controlled ventricular rate. Chest x-ray on 02/02/2017 revealed cardiomegaly that is unchanged and mild interstitial markings otherwise, no manifestation of heart failure or pleural effusion. Mrs. Francisca Magaña seems to be stable from a cardiac point of view with recent hospitalization with acute on chronic decompensated diastolic heart failure secondary to left ventricular diastolic dysfunction. Cardiology consult was called because of atrial fibrillation with rapid ventricular rate and hypotension. The patient's ventricular rate has improved after being started on IV Cardizem and digoxin was added. She is currently on anticoagulation therapy for prevention of thrombolic event and should continues the same. Her blood pressure continues to be low and the IV Cardizem was discontinued. For some reason, the beta alfreda she was taking at home was held for 24 hours and it could be one of the reasons that she went into atrial fibrillation with the rapid ventricular rate. It will be started at 12.5 mg by mouth twice a day and in order to prevent hypotension, I will decrease the spironolactone from 25 mg by mouth twice a day to 25 mg by mouth daily. She will continue with the furosemide and I will discuss with the hospitalist about restarting her metolazone. I have noticed that she is on two magnesium supplements, we probably can get rid of one. It was a pleasure to assist in the care of the Mrs. Francisca Magaña for her underling cardiac condition. I will continue to follow along with you over the weekend and on Sunday morning, she will be seen by Dr. Choudhary. She appears to be currently well compensated and her heart rate seems to be under control. She probably will not tolerate tachycardic episode very well and it seems that in the past, according to the chart, she was found to have mitral stenosis on echocardiogram. Also we have discussed about diet. It seems that she is not quite compliant in her diet and she was told to decrease salt intake, so she would be taking less medications. She has manifested understanding. ADELE
[2017-02-03] MEDS: HumaLOG INSULIN (NovoLOG) PER UNIT SC SCH ×3 (12:57→21:00)
--- NOTE | 2017-02-03 15:16 | IPN ---
DATE: 02/03/2017 Patient seen and examined at the bedside. Chart has been reviewed. Overnight patient had episode of atrial flutter with rapid ventricular response (RVR) ventricular rate of 150. She was also noted to have nonsustained ventricular tachycardia on the monitor. Potassium and magnesium were optimized. Systolic pressure was maintained at 101-110. Patient complained of some shortness of breath, palpitations. No lightheadedness or near syncope, headaches. VITAL SIGNS: Temperature 98.2, pulse 152, regular, respiratory rate 16, blood pressure 105/56, 91% on 2 liters nasal cannula. GENERAL: Patient is awake, alert, oriented, answering questions appropriately. Anicteric sclerae. No jaundice. Unable to assess for jugular venous distention (JVD) due to a thickened neck. HEART: S1, S2, irregularly irregular. LUNGS: Fine crackles at the bases. Air entry is equal. ABDOMEN: Obese, protuberant, significant edema. EXTREMITIES: Pitting edema 1+. Laboratory data, Imaging studies, microbiology have been reviewed. 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 Her files supervisor has been adjusting her medication and her diuretics for the past few days. She has been on torsemide, spironolactone, metolazone with increase in weight in the office and increasing lower extremity edema. CURRENT ISSUES: 1. Atrial flutter with rapid ventricular rate. Patient has received digoxin, currently on diltiazem drip. Cardiology, Dr. Wiseman, has been consulted. Patient's blood pressure has been maintained above systolic of 100. She is continued on Pradaxa for anticoagulation. May need to titrate due to low blood pressure. Metoprolol, spironolactone could not be given last evening. Will defer to Dr. Wiseman for further changes in her rate control medications. 2. Decompensated congestive heart failure exacerbation. Diastolic heart failure with preserved ejection fraction, currently on Lasix 80 mg twice a day. Input and output was 6.1 liters yesterday. Managed by Dr. Osuna. Continue on fluid restriction, daily weights, strict intake and output. Monitor patient's creatinine daily and clinical symptoms. 3. Nonsustained ventricular tachycardia, on telemetry. Optimize potassium and magnesium. She has been supplemented with 40 mEq of potassium and magnesium 1 gram this morning. Will recheck levels and supplement if needed. Will keep potassium goal of greater than 4, magnesium greater than 2. 4. Hypertension. Patient's antihypertensives are being held due to low blood pressure from diuresis as well as atrial flutter/atrial fibrillation. 5. Obesity hypoventilation syndrome with morbid obesity complicating care. 6. Obstructive sleep apnea. Resume home settings of continuous positive airway pressure (CPAP). 7. Type 2 diabetes. Consistent-carbohydrate with renal diet. Sliding scale. 8. COPD on chronic home oxygen. 9. Mitral valve stenosis and prolapsed pulmonary hypertension, stable. 10. Iron deficiency anemia, supplementation. 11. Elevated thyroid-stimulating hormone (TSH) with normal T4, T3. In light of worsening atrial fibrillation/atrial flutter will not start on supplementation with Synthroid. 12. Electrolytes abnormalities. Low magnesium, low potassium. Supplement potassium and magnesium for optimal values of greater than 3.5 for potassium and magnesium greater than 2.
[2017-02-03] MEDS: LORATADINE 10 MG TAB PO PRN (21:11)
[2017-02-03] MEDS: ATORVASTATIN 20 MG TAB PO SCH (21:11)
--- NOTE | 2017-02-03 23:20 | ECGEPIP ---
Stationary ECG Study 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 PATIENT WAS IN ATRIAL FIBRILLATION WITH A NARROW COMPLEX QRS Electronically Signed On 02-03-2017 23:20:14 EDT by Adalid Wiseman
--- NOTE | 2017-02-03 23:24 | ECGEPIP ---
Stationary ECG Study [facility] Test Date: 2017-02-03 Pat Name: ALMAS MIDDLETON Department: Room: [place] [address] Gender: F Film Historian: SHINE : 1950 Requested By: ANASTASIIA Pascual Order Number: [id number] Reading MD: Adalid Wiseman Measurements Intervals [place] Rate: 70 P: [place]: 0 QRS: 101 QRSD: 108 T: 116 QT: 353 QTc: 383 Interpretive Statements ATRIAL FIBRILLATION MARKED RIGHT AXIS DEVIATION LOW QRS VOLTAGE IN PRECORDIAL LEADS NONSPECIFIC ST-T ABNORMALITY COMPARED TO A PRIOR TRACING ON 02/01/2017 AT 12:58:14, NO SIGNIFICANT CHANGES. THE MOST RECENT TRACING ON 02/03/2017 AT 2:47:32, PATIENT WAS IN A WIDE COMPLEX TACHYCARDIA Electronically Signed On 02-03-2017 23:23:38 EDT by Adalid Wiseman
[2017-02-04] MEDS: IPRATROPIUM 0.5MG/ALBUTEROL 2.5MG INH SOL UD 3ML (DUONEB)(J7620) NEB SCH ×4 (01:18→20:34)
[2017-02-04 04:00] VITALS: BP 120/82
[2017-02-04 05:43] LABS: MEAN CORPUSCULAR HEMOGLOBIN 29.5 pg (27.0-33.0); MEAN CORPUSCULAR HGB CONC 30.8 g/dl (32.0-36.5); MEAN CORPUSCULAR VOLUME 95.7 fl (80.0-96.0); RED CELL DISTRIBUTION WIDTH 15.3 % (11.5-14.5); WHITE BLOOD COUNT 7.9 10^3/uL (4.0-10.0)
[2017-02-04 06:14] LABS: CALCIUM LEVEL 8.8 MG/DL (8.8-10.2); CREATININE FOR GFR 1.14 MG/DL (0.55-1.02); DIGOXIN LEVEL 0.6 NG/ML (0.5-2.0); GLOMERULAR FILTRATION RATE 50.6 (>45)
[2017-02-04 06:51] LABS: MAGNESIUM LEVEL 2.1 MG/DL (1.8-2.4)
[2017-02-04] MEDS: TIOTROPIUM INHALER/CAPSULE (SPIRIVA) INH SCH (07:26)
[2017-02-04] MEDS: HumaLOG INSULIN (NovoLOG) PER UNIT SC SCH ×4 (07:30→21:00)
[2017-02-04 08:23] VITALS: BP 112/60
[2017-02-04] MEDS ORDERED: INFLUENZA VIRUS VACCINE HIGH DOSE 0.5 ML SYRINGE (90662) IM ONE (09:00)
[2017-02-04] MEDS ORDERED: PREVNAR 13 VACCINE SYRINGE (CPT CODE:90670) IM ONE (09:00)
[2017-02-04] MEDS: MULTIVITAMINS/MINERALS THERAP 1 TAB PO SCH (09:12)
[2017-02-04] MEDS: ASPIRIN 81 MG ENTERIC TAB PO SCH (09:13)
[2017-02-04] MEDS: MAGNESIUM OXIDE 400 MG TAB (MAG-OX) PO SCH (09:13)
[2017-02-04] MEDS: AcetaZOLAMIDE 250 MG TAB PO SCH (09:13)
[2017-02-04] MEDS: SPIRONOLACTONE 25 MG TAB PO SCH (09:13)
[2017-02-04] MEDS: DABIGATRAN ETEXILATE 75 MG CAP (PRADAXA) PO SCH ×2 (09:13→20:44)
[2017-02-04] MEDS: FERROUS SULFATE 325MG TAB PO SCH (09:13)
[2017-02-04] MEDS: NORCO, ANEXSIA 5/325MG TABLET (HYDROcodone/ACETAMINOPHEN) PO PRN ×2 (09:14→20:46)
[2017-02-04] MEDS: METOPROLOL TART 12.5 MG PER 1/2 TAB PO SCH ×2 (09:15→20:43)
[2017-02-04] MEDS: NYSTATIN 100,000 UNITS/GM TOPICAL PWD 15 GM TOP SCH ×2 (09:16→20:46)
[2017-02-04] MEDS: FUROSEMIDE injection 250 MG in D5W 225 ML IV SCH (10:27)
--- NOTE | 2017-02-04 11:38 | IPN ---
DATE OF SERVICE: 02/03/2017 SUBJECTIVE: The patient is seen this morning at the bedside. Last night she went into atrial fibrillation with rapid ventricular rate of about 150 beats per minute. She was started on intravenous (IV) Cardizem and cardiology consultation was had with Dr. Wiseman. Her blood pressure was borderline soft. Digoxin was added. Her metoprolol was resumed and her spironolactone dose was halved. The patient made 6.1 liters of urine in the past 24 hours and her renal function has stayed fairly stable, although she has developed a metabolic alkalosis. The patient was completely asymptomatic while she was in atrial fibrillation with rapid ventricular response (RVR). REVIEW OF SYSTEMS: Negative for chest pain, symptomatic palpitations, nausea, vomiting, diarrhea, shortness of breath. Remainder of review of systems is negative. VITAL SIGNS: Temperature 97.6, pulse 73, respiratory rate 19, blood pressure 135/62, on high-flow nasal cannula 2 liters saturating 98%. Intake and output: Urine output 6.1 liters. Oral intake 1.2 liters. Net negative 4.9 liters. Weight in the bed scale today 149 kg, decreased from prior. PHYSICAL EXAMINATION: General: The patient is awake, alert, oriented times four in no acute distress. Head and neck: Extraocular muscles are intact. Mucous membranes are moist. Due to significant adipose tissue at the neck, unable to assess her jugular veins. Heart: S1, S2, irregular. 2+ radial pulse. 1+ pitting edema in the extremities. Lungs: Diminished at base with faint rales. Seen on nasal cannula in no respiratory distress. Abdomen: Obese, protuberant, significant edema in the abdominal pannus. Extremities: 1+ pitting edema in the lower extremities. Neurologic: No focal deficits. Psychiatric: Appropriate mood and affect. LABORATORIES: White count 8.6, hemoglobin 13.0, platelets 199. Sodium 138, potassium 3.5, bicarbonate 37, creatinine 1.1, magnesium 1.7. BNP 2100. INPATIENT MEDICATIONS: The patient was on a diltiazem drip that is currently discontinued. Her magnesium was replaced. Her potassium was replaced. Her furosemide was decreased to 40 mg intravenously (IV) twice a day by myself and she will start on acetazolamide 250 mg by mouth daily. Her metolazone is currently on hold by myself. Overnight, the patient received two doses of digoxin. She is resumed on metoprolol and her Aldactone is halved by the cardiology team. The remainder of medications are unchanged from prior. ASSESSMENT AND PLAN: 1. Decompensated congestive heart failure with significant hypervolemia predominantly in the abdominal pannus. The patient diuresed 6.1 liters in the past 24 hours and has a significant metabolic alkalosis at this time with use of concomitant loop diuretic and thiazide diuretic causing sequential nephron blockade. I will continue her Lasix and reduce to 40 mg intravenously (IV) twice a day and add oral Diamox to correct the alkalemia. I would resume her thiazide diuretic once her alkalosis has been corrected. Goal net negative 2-3 liters per 24 hours. 2. Atrial fibrillation with rapid ventricular response. The patient was seen by Dr. Wiseman. She is resumed on metoprolol. She received two doses of digoxin and Cardizem drip overnight. Her blood pressures have been a bit soft. Her spironolactone dose was halved. She continues on Pradaxa for anticoagulation. 3. Nonsustained ventricular tachycardia (V-TACH) on telemetry. Expect renal losses of potassium and magnesium with brisk diuresis and aggressive supplementation of potassium and magnesium. She continues on beta blockade with metoprolol. Consider amiodarone and defer to cardiology, Dr. Wiseman. 4. Hypertension. The patient's blood pressure has actually been borderline soft. I have reduced her Lasix to 40 mg IV twice a day. Her Aldactone dose was halved by Dr. Wiseman and she is back on metoprolol. Holding parameters with all antihypertensives. Of note, it would be difficult to diurese this patient if her blood pressure is soft and may lead to acute kidney injury. 5. Obesity hypoventilation syndrome and morbid obesity complicating care. 6. History of sulfa allergy. The patient has tolerated sulfa based diuretics including loop diuretics and thiazide diuretics and so she will likely tolerate Diamox.
--- NOTE | 2017-02-04 11:39 | IPN ---
DATE: 02/04/2017 The patient seen and examined at the bedside. Chart has been reviewed. This morning patient denies any chest pain, pressure, dizziness or shortness of breath, palpitations, nausea, vomiting or abdominal pain. She continues to have edema of the pannus, has been diuresing well. No issues on telemetry overnight. Ventricular tachycardia in atrial fibrillation, is rate controlled 52 to 83. Temperature 97.1, pulse 60, respiratory 20, blood pressure 120/82, 91% on 1 liter nasal cannula. Generally, the patient is awake, alert, oriented times three, answering questions appropriately. Lungs are clear to auscultation. Heart: S1, S2, irregularly irregular. Abdomen is obese, soft, mildly tender in the pannus with edema. Extremities: 2+ pitting edema to the sacrum. LABORATORY DATA: CBC and metabolic panel studies and microbiology have been reviewed. ASSESSMENT/PLAN: This is a 67-year-old female with morbid obesity, body mass index (BMI) 57, metabolic syndrome, diastolic heart failure with preserved ejection fraction, diabetes, hypertension, obesity, hyperventilation syndrome, heparin induced thrombocytopenia, COPD on chronic 1 liter of oxygen, coronary artery disease, dyslipidemia, mitral valve stenosis with prolapse, pulmonary hypertension, paroxysmal atrial fibrillation on chronic Pradaxa, presents to the emergency room with worsening shortness of breath for the past week while her pain management physician has bee adjusting her medications and diuretics. The patient has been on torsemide, spironolactone, metolazone with increasing weight in the office, increasing lower extremity edema. CURRENT ISSUES: 1. Atrial fibrillation with rapid ventricular rate, resolved. Currently on metoprolol 25 twice a day, Pradaxa 150 twice a day for anticoagulation managed by Dr. Wiseman. 2. Unsustained ventricular tachycardia might have been repleted. No acute episodes of unsustained ventricular tachycardia on telemetry over the past 24 hours. 3. Decompensated congestive heart failure, diastolic dysfunction with acute decompensation. The patient is diuresing with Lasix twice a day intravenously. Defer to Dr. Wiseman, cardiology for further management. 4. Hypertension currently on metoprolol. The patient's blood pressure appears to be well managed. 5. Obesity hypoventilation syndrome with morbid obesity complicating care. 6. Obstructive sleep apnea: Resume home CPAP. 7. Type 2 diabetes: Sliding scale, consistent carbohydrate diet with renal diet. 8. Chronic obstructive pulmonary disease (COPD) on chronic home oxygen, oxygen dependent. 9. Mitral valve stenosis and prolapse with pulmonary hypertension, stable. 10. Iron deficiency anemia: No acute indication for red blood cell transfusion. 11. Elevated TSH: Repeat thyroid function test as an outpatient. 12. Electrolyte abnormalities: Supplemented.
--- NOTE | 2017-02-04 11:39 | ECHO ---
DATE OF PROCEDURE: 02/02/2017 DATE OF : 1950 AGE: 67 REFERRING PROVIDER: Dr. Jero Meade PATIENT TIMBER RIDER: Dr. Carmelina Choudhary PATIENT LOCATION: Room 3222 REASON FOR THE ECHOCARDIOGRAM: Congestive heart failure. 2D MEASUREMENTS: IVS: 1.4cm LV: 5.5 cm LVPW: 1.4 cm LA: 4.4 cm Aorta: 2.9 cm Inferior vena cava: 2.0 cm DOPPLER MEASUREMENTS: Peak velocity across the aortic valve: 1.7 m/s Peak velocity across the LVOT: 0.89 m/s Mitral E: 1.5 Maximum tricuspid valve velocity: 3.4 m/s 2D COMMENTS: 1. Mildly increased left ventricular wall thickness and borderline enlarged left ventricle. Left ventricular systolic function appeared to be normal at about 60%. 2 Mildly enlarged left atrium. The right atrium and the right ventricle appeared to be dilated. The right ventricular free wall seems to be hypokinetic. 3. The atrial septum appeared to be normal without evidence of defect or shunt. 4. Normal aortic root. 5. No pericardial effusion seen. 6. Mildly calcified he aortic valve, leaflet excursion was not well visualized. Moderately calcified mitral annulus, the anterior mitral valve leaflet motion was not well visualized. Normal tricuspid valve. The pulmonic valve and proximal pulmonary artery branches were not well visualized. 7. The inferior vena cava was borderline enlarged, central venous pressure mildly elevated. DOPPLER: It detects probably moderate mitral regurgitation and moderate tricuspid regurgitation. The calculated pulmonary artery systolic pressure varied between 50-60 mmHg. Assessment of the left ventricular diastolic function was limited in view of the underlying atrial fibrillation. IMPRESSION: 1. Technically limited study due to poor acoustic window secondary to body habitus. 2. Normal global left ventricular systolic function with mild concentric left ventricular hypertrophy and a mildly enlarged left ventricle. Assessment of the left ventricular diastolic dysfunction was limited because of the underlying atrial fibrillation. 3. Aortic valve sclerosis with trivial aortic stenosis but no aortic regurgitation. 4. Mildly enlarged left atrium with probably moderate mitral regurgitation. No definitive mitral valve stenosis noted, or mitral valve prolapse. 5. Moderate tricuspid regurgitation with moderately severe pulmonary hypertension and dilated heart chambers. Could not rule out the presence of right ventricular systolic dysfunction. 6. There were features of elevated central venous pressure. 7. The above was compared to echocardiogram done in February of 2016, pulmonary pressure is now more elevated. Left ventricular systolic function is normal . MTDD
[2017-02-04 12:10] VITALS: BP 138/76
--- NOTE | 2017-02-04 12:37 | IPN ---
DATE: 02/04/2017 Ms. Francisca Magaña was seen early this morning, she was sitting in her chair in no acute distress. She said that she feels much better. She denies any chest pain or shortness of breath or palpitations. She has no orthopnea or paroxysmal nocturnal dyspnea. She has lost a few more pounds, she has been having good urinary output. She was initially seen yesterday after she went into a wide complex tachycardia that seemed to be atrial flutter. She is spontaneously cardioverted and she remains stable. She was initially started on IV Cardizem and it was discontinued. Her beta alfreda was restarted yesterday at twice a day instead of once a day. Her spironolactone was decreased from twice a day to once a day because his blood pressure was running low. She also had received a couple doses of digoxin. On physical examination, the patient is alert and oriented, in no acute distress and her vital signs this morning reveal a blood pressure of 112/60 with a pulse of 62, respiration 19 and her maximum temperature is 98.1 degrees Fahrenheit with a oxygen saturation of 93% on 1 liter nasal cannula. She has a negative fluid balance of 1.8 liter for 02/03/2017. Her weight a couple of days ago was 153.2 kg and today is 150.7 kg. Examination of the head is atraumatic, normocephalic. Neck is supple, no jugular venous distention. The lungs reveal no wheezing or crackles. The heart examination reveals irregularly irregular heart sounds without gallops. The point of maximum impulse (PMI) is slightly displaced inferiorly and laterally. There is no rub. Could not appreciate any murmurs. Abdomen is obese and nontender. Extremities revealed +1 bilateral lower extremity edema. Neurological examination grossly is negative for focal deficit. LABS: CBC done today revealed a WBC 7.9, hemoglobin 12.4, hematocrit 40.3 and platelet 188,000. BMP revealed a sodium of 139, potassium 4.0, chloride 99, CO2 25, BUN 27, creatinine 1.14, GFR 50.6, fasting glucose 108, calcium 8.8. Serum magnesium is 2.1. Serum for BNP today is 1608 and yesterday it was 2198. IMPRESSION: 1. History of coronary artery disease percutaneous transluminal coronary angioplasty (PTCA)/stents. 2. Atrial fibrillation, persistent. 3. Congestive heart failure secondary to left ventricular diastolic dysfunction. 4. History of hyperlipidemia, diabetes mellitus. 5. Morbid obesity and obstructive sleep apnea. 6. Valvular heart disease involving the mitral valve. 7. Wide complex tachycardia, probably atrial flutter versus atrial fibrillation with aberrancy. 8. Nonsustained ventricular tachycardia noted early this morning on telemetry. Mrs. Francisca Negron seem to be stable on her current medications and she will continue the same. I am suspecting she probably had some underlying sick sinus syndrome and for this reason, I will not continue with the digoxin but she will continue with a small dose of the beta alfreda/metoprolol tartrate. Her blood pressure is more stable for now. She is currently on IV Lasix started by nephrology and she is being monitored. We should monitor her closely, her BUN and creatinine as well as her electrolytes. She is on Pradaxa for prevention of thrombolic events. No bleeding has been reported in the hospital. It has been a pleasure to participate in the care of Mrs. Francisca Magaña for her underlying cardiac condition. I will continue to monitor her along with you and tomorrow, she will be seen by Dr. Choudhary. Please do not hesitate to call for any questions. ADELE
[2017-02-04 16:00] VITALS: BP 134/74
[2017-02-04 19:19] VITALS: BP 134/70
[2017-02-04 20:30] VITALS: BP 124/60
[2017-02-04] MEDS: ATORVASTATIN 20 MG TAB PO SCH (20:40)
[2017-02-05 00:29] VITALS: BP 105/55
[2017-02-05] MEDS: IPRATROPIUM 0.5MG/ALBUTEROL 2.5MG INH SOL UD 3ML (DUONEB)(J7620) NEB SCH ×4 (01:14→20:23)
[2017-02-05 04:30] VITALS: BP 128/97
[2017-02-05 05:23] LABS: MEAN CORPUSCULAR HEMOGLOBIN 30.1 pg (27.0-33.0); MEAN CORPUSCULAR HGB CONC 31.6 g/dl (32.0-36.5); MEAN CORPUSCULAR VOLUME 95.4 fl (80.0-96.0); RED CELL DISTRIBUTION WIDTH 15.5 % (11.5-14.5); WHITE BLOOD COUNT 8.5 10^3/uL (4.0-10.0)
[2017-02-05 05:43] LABS: CALCIUM LEVEL 9.1 MG/DL (8.8-10.2); CREATININE FOR GFR 1.29 MG/DL (0.55-1.02); GLOMERULAR FILTRATION RATE 43.9 (>45); POTASSIUM SERUM 3.3 MEQ/L (3.5-5.1)
[2017-02-05] MEDS ORDERED: POTASSIUM CHLORIDE 10 MEQ SR TABLET PO ONE ×3 (06:45→22:30)
[2017-02-05] MEDS: TIOTROPIUM INHALER/CAPSULE (SPIRIVA) INH SCH (07:16)
[2017-02-05 07:40] VITALS: BP 125/74
--- NOTE | 2017-02-05 08:07 | IPN ---
DATE: 02/05/2017 Mrs. Magaña tells me that she is feeling better. During the night, she had an episode of wide-complex tachycardia with ventricular rate approximately 150 beats per minute that lasted over 6 minutes. She was asymptomatic. Even though it was felt to be ventricular tachycardia, reviewing the imaging it is most likely atrial flutter with 2:1 conduction and rate induced right bundle branch block. She otherwise reports fairly substantial improvement since admission. She believes that she recently gained at least 20 pounds and gained approximately 50 pounds since last discharged from this facility a year ago. Denies any chest pain. Vital Signs: Blood pressure 128/97. Heart rate has been mostly in 70s and 80s, sinus rhythm, and episode of atrial flutter as above. She is afebrile. Saturation 92% on 1 liter of oxygen by nasal cannula. Fluid balance yesterday was approximately negative 2 liters. Weight is 147.4 kg, which is roughly 13 kg down since admission. She is alert and oriented appropriate. Her jugular venous pulse (JVP) is difficult to estimate due to body habitus. It does not appear to be grossly elevated while she is sitting and I do not see it above the clavicle. Lungs are reasonably clear to auscultation. Heart exam reveals very muffled heart sounds due to the body habitus. Again, I do not appreciate any gallop or rub. There is barely audible murmur of MR. Abdomen is morbidly obese. There is still some induration with fluid retention. There is still some peripheral edema, but improved since admission per her report. Neurologically, she is intact. Laboratory-cheung, basic metabolic panel with potassium 3.3, BUN 29, creatinine 1.3 for GFR 44, glucose is 138. CBC: Hemoglobin 13.2, hematocrit 41.8 and platelet count 201,000. ASSESSMENT/PLAN: Mrs. Magaña is a 67-year-old morbidly obese female who has history of coronary artery disease with percutaneous coronary intervention (PCI) for remote myocardial infarction (VT). She presented with acutely exacerbated congestive heart failure and in atrial fibrillation with rapid ventricular rate (RVR). She was relatively hypotensive. Digoxin was used to control her rate and she eventually converted to sinus rhythm, but last night she had runs of wide-complex tachycardia with a ventricular rate of 150. In my opinion, most likely representing atrial flutter with 2:1 conduction and aberrant conduction. As far as the management is concerned, she is already anticoagulated with Pradaxa. I will start her on amiodarone as clearly the episodes of atrial fibrillation are not well tolerated. As far as the congestive heart failure is concerned, she seems to be improving and she is receiving furosemide drip. This has been regulated principally by nephrology and I think that we should continue diuresing her some more as she certainly is not euvolemic as yet. As far as coronary artery disease is concerned, she is on aspirin, statin and low-dose metoprolol. She has no anginal symptoms and there was no evidence for ischemia or myocardial necrosis during this admission. I will continue following this patient with you.
[2017-02-05] MEDS: MULTIVITAMINS/MINERALS THERAP 1 TAB PO SCH (08:36)
[2017-02-05] MEDS: FERROUS SULFATE 325MG TAB PO SCH (08:36)
[2017-02-05] MEDS: MAGNESIUM OXIDE 400 MG TAB (MAG-OX) PO SCH (08:37)
[2017-02-05] MEDS: SPIRONOLACTONE 25 MG TAB PO SCH (08:37)
[2017-02-05] MEDS: METOPROLOL TART 12.5 MG PER 1/2 TAB PO SCH ×2 (08:37→21:35)
[2017-02-05] MEDS: AcetaZOLAMIDE 250 MG TAB PO SCH (08:37)
[2017-02-05] MEDS: ASPIRIN 81 MG ENTERIC TAB PO SCH (08:38)
[2017-02-05] MEDS: AMIODARONE 200 MG TAB (PACERONE) PO SCH ×2 (08:38→21:36)
[2017-02-05] MEDS: DABIGATRAN ETEXILATE 75 MG CAP (PRADAXA) PO SCH ×2 (08:38→21:36)
[2017-02-05] MEDS: HumaLOG INSULIN (NovoLOG) PER UNIT SC SCH ×4 (08:39→21:00)
[2017-02-05] MEDS: NYSTATIN 100,000 UNITS/GM TOPICAL PWD 15 GM TOP SCH ×2 (08:41→21:36)
[2017-02-05] MEDS: LORATADINE 10 MG TAB PO PRN (08:44)
--- NOTE | 2017-02-05 09:56 | IPN ---
DATE OF SERVICE: 02/04/2017 SUBJECTIVE: The patient is seen this morning at the bedside. She has no complaints. She feels well. She denies shortness of breath or palpitations. She slept well last night. Her Lasix pushes have been switched to Lasix drip today, and she received a dose of Diamox. I discussed with her regarding her history of SULFA allergy. She notes a rash with a SULFA ANTIBIOTIC at age 8. REVIEW OF SYSTEMS: Negative for chest pain, shortness of breath, palpitations, orthopnea. Positive for abdominal edema. Remainder of review of systems is negative. VITAL SIGNS: Temperature 98.2, pulse 66, respiratory rate 20, blood pressure 138/76, saturating 94% on 1 liter nasal cannula INTAKE AND OUTPUT: Urine output yesterday 2950. Net negative 1840 mL. PHYSICAL EXAMINATION: The patient is seen out of bed to the chair. Awake, alert, oriented times four, in no acute distress. Head and neck: Extraocular muscles intact. Moist mucous membranes. No jugular venous distention. Chest: S1, S2, irregular. 1+ pitting edema in the lower extremities and diffuse edema in the abdominal pannus. Lungs: With symmetric air entry without crackles. Abdomen: Obese, large pannus, with significant indurated edema. Lower extremities: With 1+ pitting edema. Neurologic: Appropriately conversational and interactive. No focal deficits. Psychiatric: Appropriate mood and affect. LABORATORIES: White count 7.9, hemoglobin 12.4, platelets 188. Sodium 139, potassium 4.0, bicarbonate 35, BUN 27, creatinine 1.1, calcium 8.8, magnesium 2.1, BNP 1600 decreased from prior. INPATIENT MEDICATIONS: Today, I put the patient on a Lasix drip at 5 mg an hour, and she started on Diamox 250 mg by mouth daily. Her metoprolol was made twice a day, and her spironolactone was reduced to once daily by Dr. Wiseman. She also received her flu and Prevnar vaccine. The remainder of medications are unchanged from prior. ASSESSMENT AND PLAN: 1. Decompensated congestive heart failure with significant edema, primarily in the abdominal pannus. The patient's blood pressures have had some variability, and so I have discontinued the Lasix pushes and put her on a Lasix drip at 5 mg per hour. As she had a significant metabolic alkalosis, I will hold the thiazide diuretic at this time, and she is starting on Diamox 250 mg by mouth daily. She has symptomatically improved thus far on the admission, and we will continue with diuresis for a goal net negative 2-3 liters per 24 hours. She is compliant with fluid restriction. 2. Atrial fibrillation with rapid ventricular response (RVR). The patient has been seen by Dr. Wiseman of cardiology, and her beta alfreda, metoprolol tartrate, has been increased to twice a day, and her spironolactone dose has been reduced. She remains on Pradaxa. 3. Nonsustained ventricular tachycardia (V-TACH). Keep magnesium greater than 2 and potassium greater than 4. The patient is on metoprolol. Consider amiodarone and defer to cardiology regarding the same. 4. Morbid obesity, complicating care.
[2017-02-05] MEDS: NORCO, ANEXSIA 5/325MG TABLET (HYDROcodone/ACETAMINOPHEN) PO PRN ×2 (10:44→22:49)
[2017-02-05] MEDS: FUROSEMIDE injection 250 MG in D5W 225 ML IV SCH (10:47)
[2017-02-05 12:00] VITALS: BP 110/57
--- NOTE | 2017-02-05 13:39 | IPN ---
DATE: 02/05/2017 The patient is seen and examined at the bedside. The chart has been reviewed. The patient states that her breathing is improved. She is diuresing well. Heart rate has been rate controlled with atrial fibrillation, ventricular rate of 62 to 84. Non complaints of dizziness, lightheadedness, chest pain, pressure or tightness. Temperature 97, pulse 73, respiratory rate 18, blood pressure 125/74, 99% on 1 liter nasal cannula. Telemetry had episodes of 4 beats nonsustained V-Tac yesterday, asymptomatic. Blood pressure is well maintained. Generally, awake, alert , oriented times three answering questions appropriately. Neck is thick. Lungs are clear to auscultation. No wheezing, rales or rhonchi. Heart: S1, S2 irregularly irregular. Abdomen is obese, soft, nontender, nondistended with fair induration and some retention in the pannus. Positive pitting edema improved from yesterday. Input and output: Input of 1200, output of 3200, negative 2000. Current weight is 147.4 kg with peak weight of 160.8 kg on admission. Laboratory data, imaging studies, microbiology have been reviewed. ASSESSMENT/PLAN: This is a 67-year-old female with history of morbid obesity, body mass index (BMI) of 57, metabolic syndrome, diastolic heart failure with preserved systolic function, diabetes, hypertension, obesity, hypoventilation syndrome, heparin induced thrombocytopenia, COPD on chronic 1 liters of oxygen with chronic hypoxic respiratory failure, coronary artery disease, dyslipidemia, mitral valve stenosis with prolapse, pulmonary hypertension, atrial fibrillation on chronic Pradaxa who presents to the emergency room with worsening shortness of breath and increasing lower extremity edema despite adjustments by her compensator as an outpatient. The patient had been on torsemide, spironolactone, metolazone with increasing weight as outpatient and presents to the emergency room. IMPRESSION: 1. Atrial fibrillation with rapid ventricular response currently on metoprolol 12.5 mg twice a day, appears to be rate controlled for now. On amiodarone 400 mg twice a day titrated by cardiology. 2. Congestive heart failure exacerbation acute on chronic diastolic dysfunction with preserved systolic function. The patient is currently on Lasix, intravenous drip, spironolactone 25 daily and Diamox 250 mg daily managed by compensator, Dr. Osuna. The patient appears to be diuresing well with clinical improvement in her shortness of breath and with her exercise ability , she continues to have significant edema in her pannus and lower extremity, which is improved slightly over the past few days. Continue with strict Ins and outs, daily weights and Lasix diuresis and fluid restriction. 3. Nonsustained V-tac, currently on amiodarone and metoprolol 12.5 mg twice a day. 4. Hypertension: Controlled. Well managed on metoprolol. 5. Obesity hypoventilation syndrome with morbid obesity complicating care. 6. Obstructive sleep apnea: Resume home settings with CPAP. 7. Type II diabetes on consistent carbohydrate diet and renal diet. A1c 6.2. Glucose is well controlled with postprandial glucose of 183. 8. Chronic obstructive pulmonary disease (COPD) on home oxygen. Oxygen dependent. 9. Mitral valve stenosis and pulmonary hypertension stable. 10. Iron deficiency anemia: No acute indication for red blood cell (RBC) transfusion. 11. Elevated thyroid stimulating hormone (TSH): Repeat thyroid function tests as an outpatient. 12. Electrolyte abnormalities: Low potassium, low magnesium supplement as needed to keep potassium above 4 and magnesium above 2. 2. MTDD
[2017-02-05 15:54] VITALS: BP 112/62
[2017-02-05 18:48] LABS: CALCIUM LEVEL 9.2 MG/DL (8.8-10.2); CREATININE FOR GFR 1.38 MG/DL (0.55-1.02); GLOMERULAR FILTRATION RATE 40.6 (>45); MAGNESIUM LEVEL 2.3 MG/DL (1.8-2.4); POTASSIUM SERUM 3.7 MEQ/L (3.5-5.1)
[2017-02-05 20:00] VITALS: BP 113/55
[2017-02-05] MEDS: ATORVASTATIN 20 MG TAB PO SCH (21:36)
[2017-02-06] VITALS (12 sets, daily range): BP systolic 91–120; BP diastolic 48–68; O2SAT 92–94
[2017-02-06] MEDS: IPRATROPIUM 0.5MG/ALBUTEROL 2.5MG INH SOL UD 3ML (DUONEB)(J7620) NEB SCH ×4 (01:09→20:41)
[2017-02-06 05:33] LABS: MEAN CORPUSCULAR HEMOGLOBIN 30.7 pg (27.0-33.0); MEAN CORPUSCULAR VOLUME 95.8 fl (80.0-96.0); RED CELL DISTRIBUTION WIDTH 15.8 % (11.5-14.5)
[2017-02-06 05:58] LABS: CALCIUM LEVEL 9.2 MG/DL (8.8-10.2); CREATININE FOR GFR 1.32 MG/DL (0.55-1.02); GLOMERULAR FILTRATION RATE 42.7 (>45); MAGNESIUM LEVEL 2.6 MG/DL (1.8-2.4); POTASSIUM SERUM 3.9 MEQ/L (3.5-5.1)
--- NOTE | 2017-02-06 06:35 | IPN ---
DATE: 02/05/2017 SUBJECTIVE: The patient is seen this morning at the bedside. She has no complaints. Her breathing is easy. She is diuresing well on the Lasix drip. Her heart rate has been controlled and she is adequately fluid restricting. Her weights have been down trending. REVIEW OF SYSTEMS: Negative for headache, dizziness, lightheadedness, chest pain, palpitations, shortness of breath at rest, nausea, vomiting, diarrhea. Remainder of review of systems is negative. Temperature 96.7, pulse 72, respiratory rate 18, blood pressure 110/57, saturating 97% on 1 liter nasal cannula. Intake and output: Urine output in the past 24 hours 3200 mL, net negative 2 liters. Weight on the bed scale today 147.4 kg. EXAMINATION: The patient is seen ambulating in no acute distress. Extraocular muscles are intact. Mucous membranes are moist. The neck is thick. Lungs are clear to auscultation bilaterally. Heart: S1, S2, irregular. 2+ radial pulse, 1+ pitting edema in the lower extremities. Abdomen is obese, soft. There is significant edema and fluid retention in the pannus. Neurologic - no focal deficit LABS: White count 8.5, hemoglobin 13.2 and platelets 201. Sodium 136, potassium 3.7, bicarbonate 34, BUN 35, creatinine 1.38, calcium 9.2, magnesium 2.3. INPATIENT MEDICATIONS: The patient remains on a Lasix drip at 5 mg an hour with Diamox 250 mg by mouth daily. She is started on amiodarone 400 mg by mouth twice a day. Remainder of medications are unchanged from prior. ASSESSMENT AND PLAN: 1. Creatinine creep. The patient's GFR is within her baseline range. However, it has slowly down trended over the past several days likely due to aggressive diuresis and concomitant atrial fibrillation with rapid ventricular rate (RVR) and relative hypotension. I will discontinue her Lasix drip at this time and put her on Lasix 40 mg IV every 12. 2. Atrial fibrillation with RVR complicating her diuresis with borderline blood pressures. She is now started on amiodarone per cardiology and continued on metoprolol. 3. Decompensated CHF - the pt is diuresing well and fluid restricting. Volume status has improved from prior. Continue with IV lasix and oral diamox at this time. [facility]
[2017-02-06] MEDS: TIOTROPIUM INHALER/CAPSULE (SPIRIVA) INH SCH (07:31)
--- NOTE | 2017-02-06 08:04 | ECGEPIP ---
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
--- NOTE | 2017-02-06 08:37 | IPN ---
DATE: 02/06/2017 Mrs. Magaña had a good night. She was able to sleep on and off between her bed and her chair as she usually does. She denies much dyspnea this morning and she also denies any chest discomfort. Vital Signs: Blood pressure 109/56. Heart rate has been in the 70s and 80s. She is afebrile. Saturation 90% on 1 liter of oxygen. Fluid balance yesterday was negative 2800. Weight has not been documented yet this morning. She is alert and oriented and appropriate. Lungs are fairly clear to auscultation. I do not appreciate any crackles today. Heart exam reveals a regular rhythm. No gallop or murmur is noted, but she has very muffled heart sounds due to her morbid obesity. There is still edema of her abdominal pannus and to a lesser degree also of lower extremities. Laboratory-cheung, normal CBC. Basic metabolic panel reveals potassium 3.9, BUN 36 and creatinine 1.3 for GFR of 43. ASSESSMENT/PLAN: Mrs. Magaña is a 67-year-old morbidly obese female who has established coronary artery disease who presented with exacerbated congestive heart failure in the setting of atrial fibrillation. She had no awareness of the arrhythmia. At this point, she is already markedly better with very dramatic diuresis. I suggest to continue diuresing her even more and try to reach as "dry" status as possible. Hopefully, this will be accomplished within another day or two, at which point, I think she can be discharged on the current regimen. From a heart failure perspective, she still needs more diuresis as above, but otherwise she is on appropriate medications. As far as atrial fibrillation is concerned, I started the patient on amiodarone as she does not tolerate the arrhythmia well. We just started oral loading and I will continue following her up on an outpatient basis. She is chronically anticoagulated with Pradaxa. As far as coronary artery disease is concerned, she has no anginal symptoms and did not have any troponin elevation. Continue chronic medications.
[2017-02-06] MEDS: FERROUS SULFATE 325MG TAB PO SCH (08:45)
[2017-02-06] MEDS: FUROSEMIDE 40 MG/4 ML VIAL (J1940) IV SCH ×2 (08:45→17:08)
[2017-02-06] MEDS: SPIRONOLACTONE 25 MG TAB PO SCH (08:46)
[2017-02-06] MEDS: DABIGATRAN ETEXILATE 75 MG CAP (PRADAXA) PO SCH ×2 (08:46→20:58)
[2017-02-06] MEDS: ASPIRIN 81 MG ENTERIC TAB PO SCH (08:46)
[2017-02-06] MEDS: AMIODARONE 200 MG TAB (PACERONE) PO SCH ×2 (08:46→20:57)
[2017-02-06] MEDS: MAGNESIUM OXIDE 400 MG TAB (MAG-OX) PO SCH (08:47)
[2017-02-06] MEDS: METOPROLOL TART 12.5 MG PER 1/2 TAB PO SCH ×2 (08:47→20:58)
[2017-02-06] MEDS: AcetaZOLAMIDE 250 MG TAB PO SCH (08:47)
[2017-02-06] MEDS: MULTIVITAMINS/MINERALS THERAP 1 TAB PO SCH (08:47)
[2017-02-06] MEDS: HumaLOG INSULIN (NovoLOG) PER UNIT SC SCH ×4 (08:49→21:00)
[2017-02-06] MEDS: NYSTATIN 100,000 UNITS/GM TOPICAL PWD 15 GM TOP SCH ×2 (08:49→20:58)
[2017-02-06] MEDS: NORCO, ANEXSIA 5/325MG TABLET (HYDROcodone/ACETAMINOPHEN) PO PRN ×2 (08:54→22:17)
[2017-02-06] MEDS ORDERED: POTASSIUM CHLORIDE 10 MEQ SR TABLET PO ONE (11:00)
--- NOTE | 2017-02-06 16:37 | IPN ---
DATE: 02/06/2017 SUBJECTIVE: Patient is seen and examined in the room today. Patient stated her breathing is improving; however, patient continues to have oxygen saturations during ambulation. No recurrence of ventricular tachycardia recorded on telemetry. OBJECTIVE: VITAL SIGNS: Temperature 97.6, pulse 60, respirations 18, blood pressure 113/62, pulse oximetry 93% with 1 liter nasal cannula. GENERAL: No sign of acute distress, alert and oriented times three. HEENT: Normocephalic, atraumatic. Extraocular motor grossly intact. LUNGS: Clear to auscultation bilaterally. CARDIOVASCULAR: Positive S1, S2, irregularly irregular . ABDOMEN: Soft, nontender, nondistended. Bowel sounds present. EXTREMITIES: Positive pitting edema bilaterally. LABORATORY DATA: WBC 9, hematocrit 13, hematocrit 40, platelet count is 215. Sodium is 137, potassium 3.9, chloride is 99, carbon dioxide 32, BUN 36, creatinine 1.32, GFR is 42.7, fasting glucose 130, calcium is 9.2, magnesium 2.6. ASSESSMENT AND PLAN: 1. Acute on chronic diastolic congestive heart failure exacerbation. Patient has been receiving Lasix diuresis. Patient is also taking spironolactone and Diamox. Patient responds well with diuretic. We appreciate nephrology's, Dr. Osuna's assistance. Patient is cleared by physical therapy today; however, per specialist's recommendation, patient still has a certain amount of fluid overload, and patient would benefit from further diuretic treatments. 2. Atrial fibrillation with rapid ventricular response (RVR). Patient's is on amiodarone and metoprolol tartrate. Patient is on Pradaxa. Will refer the medication adjustment to cardiology. We appreciate her assistance. 3. Non-sustained ventricular tachycardia, on amiodarone and metoprolol. No recurrent of ventricular tachycardia noted in the last 24 hours. 4. Hypertension. Blood pressure in the satisfactory range. Patient is on metoprolol tartrate. 5. Obesity hypoventilation syndrome with morbid obesity. 6. Obstructive sleep apnea (JANE), on JANE protocol. Patient may use her own continuous positive airway pressure (CPAP). 7. Type 2 diabetes. A1c of 6.2. Patient is on sliding scale. 8. History of chronic obstructive pulmonary disease (COPD), on home oxygen. No exacerbation at this moment. 9. History of pulmonary hypertension. 10. History of iron deficiency anemia. Current hemoglobin and hematocrit within normal range. Continue to monitor. 11. Elevated thyroid-stimulating hormone (TSH) with normal free T4. 12. Acute renal injury. Currently patient is being diuresed with Lasix. Nephrology has been assisting in patient's care We appreciate Dr. Osuna's assistance. 13. Deep vein thrombosis (DVT) prophylaxis, on Pradaxa. MTDD
[2017-02-06] MEDS: ATORVASTATIN 20 MG TAB PO SCH (20:58)
[2017-02-07] VITALS (13 sets, daily range): BP systolic 103–128; BP diastolic 54–66; O2SAT 92–98
[2017-02-07] MEDS: IPRATROPIUM 0.5MG/ALBUTEROL 2.5MG INH SOL UD 3ML (DUONEB)(J7620) NEB SCH ×4 (01:13→20:27)
--- NOTE | 2017-02-07 06:55 | IPN ---
DATE OF SERVICE: 02/06/2017 SUBJECTIVE: The patient is seen this morning at the bedside. She has no complaints. Feels well. Her breathing has continued to improve. She has not had significant arrhythmias on the telemonitor. She continues on 1 liter nasal cannula. REVIEW OF SYSTEMS: Negative for dizziness, headaches, chest pain, palpitations, shortness of breath, nausea, vomiting, diarrhea, dysuria, abdominal pain. Remainder of review of systems is negative. Vital signs: Temperature 97.0, pulse 68, respiratory rate 18, blood pressure 120/57, saturation 94% on 1 liter nasal cannula. Intake and output: Urine output 4.3 liters yesterday. Net negative 2.8 liters. Weight on the bed scale today is not recorded. General: The patient is seen out of bed to the chair in no acute distress. She is awake, alert, oriented times four. Head and neck: Extraocular muscles are intact. Mucous membranes are moist. Neck is supple, difficult to assess jugular veins. Cardiac: S1, S2, regular rhythm. 2+ radial pulse. 1+ pitting edema in the lower extremities. Lungs: Clear to auscultation. Abdomen: With significant induration and edema in the abdominal pannus. LABS: Sodium 137, potassium 3.9, bicarbonate 32, BUN 36, creatinine 1.3, magnesium 2.6. White count 9.0, hemoglobin 13, platelet 215. INPATIENT MEDICATIONS: The patient is on Lasix 40 mg IV twice daily. Her Lasix drip was discontinued yesterday by myself. She received potassium supplementation and her magnesium was discontinued. There are no other significant changes in the past 24 hours. ASSESSMENT AND PLAN: 1. Congestive heart failure (CHF) exacerbation. The patient has diuresed very well over the past 5 days of this admission. She has lost a documented 13 kg. She has improved from a respiratory point of view. She no longer requires continuous Lasix drip and is now on Lasix 40 mg IV twice daily and she is net negative about 2 liters in every 24 hour period. She is fluid restricting well. Her previous home diuretic regimen was daily torsemide and spironolactone with additional metolazone three times a week. I would expect that in the next 24-48 hours, the patient can likely be discharged on her prior home diuretic regimen albeit with increased doses. 2. Atrial fibrillation with rapid ventricular rate (RVR). The patient remained on metoprolol. She was started on amiodarone. She continues on Pradaxa. 3. Hypertension. Blood pressure is adequate without hypotensive episodes. 4. Chronic kidney disease (CKD) stage III. The patient's renal function and electrolytes are fairly stable especially given that she has diuresed about 13 kg in 5 days with episodic atrial fibrillation with rapid ventricular rate. 5. Hypermagnesemia. Magnesium 2.6. Her oral magnesium supplement is being held.
[2017-02-07 07:18] LABS: MEAN CORPUSCULAR HEMOGLOBIN 30.3 pg (27.0-33.0); MEAN CORPUSCULAR HGB CONC 31.5 g/dl (32.0-36.5); MEAN CORPUSCULAR VOLUME 96.3 fl (80.0-96.0); RED CELL DISTRIBUTION WIDTH 15.7 % (11.5-14.5); WHITE BLOOD COUNT 8.9 10^3/uL (4.0-10.0)
[2017-02-07] MEDS: TIOTROPIUM INHALER/CAPSULE (SPIRIVA) INH SCH (07:21)
[2017-02-07 07:43] LABS: CALCIUM LEVEL 9.2 MG/DL (8.8-10.2); CREATININE FOR GFR 1.27 MG/DL (0.55-1.02); GLOMERULAR FILTRATION RATE 44.7 (>45); MAGNESIUM LEVEL 2.7 MG/DL (1.8-2.4); POTASSIUM SERUM 3.6 MEQ/L (3.5-5.1)
--- NOTE | 2017-02-07 08:02 | IPN ---
DATE: 02/07/2017 Mrs. Magaña had a good night. She was able to sleep in bed, which was probably the first time during this hospitalization. Her fluid balance again yesterday was negative about 2 liters. She does ambulate during the day. She was able to walk about 60 feet and about 80 feet the day before. She has no specific complaints this morning. Blood pressure 110/57. Heart rate has been in 60s and 70s in sinus rhythm. Saturation is in low to mid 90s on 1 liter of oxygen by nasal cannula. Weight is documented as 147 kg, which is about 14 kg down since admission. She is alert, oriented and appropriate. I do not appreciate jugular vein (JVP) elevation. Lungs are clear. Heart exam reveals regular rhythm without gallop or rub. Abdomen is difficult to assess due to her large pannus, but I do not see any obvious induration. Peripheral edema is almost completely resolved. Basic metabolic panel is pending, but CBC is unchanged and essentially normal. ASSESSMENT/PLAN: Mrs. Magaña is a 67-year-old female who has coronary artery disease with remote coronary intervention and also has chronic diastolic congestive heart failure. She presented with exacerbation in setting of atrial fibrillation with rapid ventricular response (RVR). She converted to sinus rhythm and I actually started her on amiodarone because she had no awareness of the arrhythmia and it was not well tolerated. At this point, I think that she is very close to being euvolemic. I assume that she will be able to go home within a day or two once we see her creatinine climbing up. I would not continue aggressive IV diuresis and switch her to her baseline oral diuretic. I plan to see her after her discharge within a week or two.
[2017-02-07] MEDS: AcetaZOLAMIDE 250 MG TAB PO SCH (08:35)
[2017-02-07] MEDS: HumaLOG INSULIN (NovoLOG) PER UNIT SC SCH ×4 (08:35→21:08)
[2017-02-07] MEDS: FUROSEMIDE 40 MG/4 ML VIAL (J1940) IV SCH (08:35)
[2017-02-07] MEDS: FERROUS SULFATE 325MG TAB PO SCH (08:36)
[2017-02-07] MEDS: METOPROLOL TART 12.5 MG PER 1/2 TAB PO SCH ×2 (08:36→21:47)
[2017-02-07] MEDS: ASPIRIN 81 MG ENTERIC TAB PO SCH (08:36)
[2017-02-07] MEDS: NYSTATIN 100,000 UNITS/GM TOPICAL PWD 15 GM TOP SCH ×2 (08:36→21:48)
[2017-02-07] MEDS: DABIGATRAN ETEXILATE 75 MG CAP (PRADAXA) PO SCH ×2 (08:36→21:47)
[2017-02-07] MEDS: MULTIVITAMINS/MINERALS THERAP 1 TAB PO SCH (08:36)
[2017-02-07] MEDS: SPIRONOLACTONE 25 MG TAB PO SCH (08:36)
[2017-02-07] MEDS: AMIODARONE 200 MG TAB (PACERONE) PO SCH ×2 (08:36→21:47)
[2017-02-07] MEDS ORDERED: POTASSIUM CHLORIDE 10 MEQ SR TABLET PO ONE ×2 (10:45)
[2017-02-07] MEDS: TORSEMIDE 10 MG TABLET PO SCH ×2 (11:39→17:13)
[2017-02-07] MEDS: NORCO, ANEXSIA 5/325MG TABLET (HYDROcodone/ACETAMINOPHEN) PO PRN ×2 (11:40→21:46)
--- NOTE | 2017-02-07 15:42 | IPN ---
DATE: 02/07/2017 SUBJECTIVE: The patient is seen and examined in the room today. The patient stated her breathing is improving. However, the patient still feels there is a significant fluid remaining in the abdomen. The patient has noticed significant urine output from the Lasix diuresis. OBJECTIVE: VITAL SIGNS: Temperature is 97.5, pulse is 63, respirations 18, blood pressure is 128/66, pulse oximetry is 92% with one liter nasal cannula. GENERAL: No sign of acute distress, alert and oriented times three. HEENT: Normocephalic, atraumatic. Extraocular motor grossly intact. Positive jugular venous distention (JVD). LUNGS: Clear to auscultation bilaterally. CARDIOVASCULAR: Positive S1, S2, irregularly irregular. ABDOMEN: Soft, nontender, nondistended. Bowel sounds present. EXTREMITIES: Positive pitting edema bilaterally. Compression stockings in place. LABORATORY DATA: WBC 8.9, hemoglobin 13, hematocrit 41.3, platelet count is 210. Sodium is 138, potassium 3.8, chloride 101, carbon dioxide is 31, BUN 40, creatinine 1.27, GFR is 44.7, fasting glucose is 126, calcium is 9.2, magnesium 2.7. ASSESSMENT AND PLAN: 1. Acute on chronic diastolic congestive heart failure. The patient continues to receive IV diuresis. The patient is also taking spironolactone and Diamox. The patient responds to diuretic very well. The patient still has some sign of fluid overload, mainly in the abdominal area. We will continue diuresis. Nephrology and cardiology have been assisting with the patient's care. We appreciate their assistance. 2. Atrial fibrillation with rapid ventricular response (RVR). The patient is on amiodarone and metoprolol tartrate. The patient is on Pradaxa. 3. Non-sustained ventricular tachycardia, on amiodarone and metoprolol. No recurrence for more than 48 hours now. 4. Hypertension. Blood pressure in the satisfactory range. Currently, the patient is receiving diuresis. Continue to monitor. 5. Obstructive sleep apnea (JANE), on JANE protocol. Per patient, patient did not follow with repeated sleep study. At this moment, the patient does not have a continuous positive airway pressure (CPAP) at home. 6. Type 2 diabetes. A1c of 6.3, on sliding scale and consistent-carbohydrate diet. 7. History of chronic obstructive pulmonary disease (COPD), on home oxygen. No exacerbation at this moment. 8. History of pulmonary hypertension. 9. History of iron deficiency anemia. Hemoglobin and hematocrit are within normal range. Continue to monitor. 10. Elevated thyroid-stimulating hormone (TSH) with normal free T4. 11. Acute renal injury. The patient is receiving the diuretic treatments and renal function is improving. We appreciate Dr. Osuna's assistance. 12. Deep vein thrombosis (DVT) prophylaxis, on Pradaxa. MTDD
[2017-02-07] MEDS: ATORVASTATIN 20 MG TAB PO SCH (21:47)
[2017-02-08] MEDS: IPRATROPIUM 0.5MG/ALBUTEROL 2.5MG INH SOL UD 3ML (DUONEB)(J7620) NEB SCH ×4 (02:00→19:55)
[2017-02-08 06:00] VITALS: BP 112/57
--- NOTE | 2017-02-08 06:14 | IPN ---
DATE: 02/07/2017 SUBJECTIVE: The patient is seen this morning at the bedside. She states she feels much improved over the course of her admission, is diuresing well on Lasix. Has noticed that her exercise tolerance has increased. Has been walking farther distances every day, is looking forward to receiving more physical therapy today. Inquires when I think she will be discharged. Review of systems Negative for headache, chest pain, palpitations, nausea, vomiting, diarrhea. Positive for improvement in shortness of breath and abdominal and peripheral edema. OBJECTIVE: VITAL SIGNS: Temperature 98.7, pulse 88, respiratory rate 20, blood pressure 118/54, saturating 92% on one liter nasal cannula. INTAKE AND OUTPUT: Urine output yesterday 3.2 liters. Net negative 1940 mL. Weight in the bed scale today 147.9 kg. PHYSICAL EXAMINATION: GENERAL: The patient is seen out of bed to chair. She is in no respiratory distress, alert and oriented times three. HEAD/NECK: Extraocular muscles are intact. Nasal cannula in place. Moist mucous membranes. Neck veins with no significant jugular venous distention. HEART: S1, S2. Two plus radial pulse trace edema in the lower extremity. LUNGS: Clear to auscultation bilaterally. ABDOMEN: Soft, nontender. Abdominal pannus with induration at the very inferior aspect. EXTREMITIES: 1+ edema in the lower extremities. NEUROLOGIC: No focal deficits. PSYCHIATRIC: Appropriate mood and affect. LABORATORY DATA: White count 8.9, hemoglobin 13, platelets 210. Sodium 138, potassium 3.6, bicarbonate 31, BUN 40, creatinine 1.2, calcium 9.2, magnesium 2.7, glucose 126. INPATIENT MEDICATIONS: Reviewed by myself. The patient continues on Diamox 250 mg by mouth daily, furosemide 40 mg intravenous (IV) twice a day. Her magnesium was discontinued by myself. ASSESSMENT AND PLAN: 1. Congestive heart failure exacerbation. The patient has diuresed very well over the past six days of this admission. She has lost around 13 kg on this admission. The edema in her abdominal pannus has significantly improved from prior. She is back on one liter nasal cannula which is her home oxygen regimen. At this point, I will switch her to an oral diuretic regimen to continue Diamox 250 mg by mouth daily with torsemide 30 mg by mouth twice a day and spironolactone 25 mg daily. Despite the spironolactone, she will be likely require potassium supplementation as an outpatient chronically. 2. Atrial fibrillation with rapid ventricular rate. The patient remains on metoprolol, amiodarone, and continues on Pradaxa. 3. Hypertension. Blood pressure is adequate without hypotensive issues. 4. Chronic kidney disease stage III. The patient's renal function and electrolytes are fairly stable, especially given that she has diuresed about 13 kg in less than a week with episodic atrial fibrillation with rapid ventricular rate (RVR). I will see her as an outpatient within about one week post discharge to monitor her renal function, electrolytes and volume status. 5. Hypermagnesemia. The patient's oral magnesium supplement is on hold at this time.
[2017-02-08 06:24] LABS: MEAN CORPUSCULAR HEMOGLOBIN 30.3 pg (27.0-33.0); MEAN CORPUSCULAR HGB CONC 31.5 g/dl (32.0-36.5); MEAN CORPUSCULAR VOLUME 96.2 fl (80.0-96.0); RED CELL DISTRIBUTION WIDTH 15.9 % (11.5-14.5)
[2017-02-08 06:41] LABS: CALCIUM LEVEL 8.8 MG/DL (8.8-10.2); CREATININE FOR GFR 1.57 MG/DL (0.55-1.02); MAGNESIUM LEVEL 2.5 MG/DL (1.8-2.4); POTASSIUM SERUM 3.6 MEQ/L (3.5-5.1)
[2017-02-08] MEDS: TIOTROPIUM INHALER/CAPSULE (SPIRIVA) INH SCH (07:26)
[2017-02-08] MEDS: DABIGATRAN ETEXILATE 75 MG CAP (PRADAXA) PO SCH ×2 (08:13→21:55)
[2017-02-08] MEDS: AcetaZOLAMIDE 250 MG TAB PO SCH (08:15)
[2017-02-08] MEDS: METOPROLOL TART 12.5 MG PER 1/2 TAB PO SCH ×2 (08:15→21:00)
[2017-02-08] MEDS: MULTIVITAMINS/MINERALS THERAP 1 TAB PO SCH (08:15)
[2017-02-08] MEDS: ASPIRIN 81 MG ENTERIC TAB PO SCH (08:15)
[2017-02-08] MEDS: FERROUS SULFATE 325MG TAB PO SCH (08:15)
[2017-02-08] MEDS: AMIODARONE 200 MG TAB (PACERONE) PO SCH ×2 (08:15→21:56)
[2017-02-08] MEDS: DOCUSATE SODIUM 100 MG CAP PO PRN (08:15)
[2017-02-08] MEDS: HumaLOG INSULIN (NovoLOG) PER UNIT SC SCH ×4 (08:16→21:00)
[2017-02-08] MEDS: NYSTATIN 100,000 UNITS/GM TOPICAL PWD 15 GM TOP SCH ×2 (10:13→21:57)
[2017-02-08] MEDS: SPIRONOLACTONE 25 MG TAB PO SCH ×2 (10:13→21:56)
[2017-02-08] MEDS: NORCO, ANEXSIA 5/325MG TABLET (HYDROcodone/ACETAMINOPHEN) PO PRN ×2 (10:13→21:57)
[2017-02-08] MEDS: TORSEMIDE 10 MG TABLET PO SCH ×2 (10:14→17:29)
[2017-02-08 11:05] VITALS: O2SAT 93
[2017-02-08 14:00] VITALS: BP 114/59
--- NOTE | 2017-02-08 16:03 | IPN ---
DATE: 02/08/2017 SUBJECTIVE: The patient seen and examined in the room today. Currently, patient requiring 1 liter nasal cannula for oxygen support which is about her baseline oxygen requirement. The patient still noted to have significant fluid collection in the abdomen. The patient stated she is feeling better than before in the home prior to admission. The patient has been very careful with regard to her fluid restrictions OBJECTIVE: VITAL SIGNS: Temperature 97.1, pulse 65, respirations 18, blood pressure is 112/57, pulse oximetry 93% on 1 liter nasal cannula. GENERAL: No sign of acute distress. Alert and oriented times three. HEENT: Normocephalic, atraumatic. Extraocular movements grossly intact. CARDIOVASCULAR: Positive S1, S2, irregularly irregular. LUNGS: Clear to auscultation bilaterally. ABDOMEN: Morbidly obese. Soft, nondistended, nontender. Bowel sounds present. EXTREMITIES: Minimal pedal edema bilaterally. Compression stockings in place. LABORATORY DATA: WBC 9, hemoglobin 12.7, hematocrit 40.3, platelet count 214. Sodium is 139, potassium 3.6, chloride 101, carbon dioxide 30, BUN 47, creatinine 1.57. GFR is 35, fasting glucose 116, calcium 8.8. Magnesium 2.5. ASSESSMENT AND PLAN: 1. Acute on chronic diastolic congestive heart failure. The patient continues to receive diuresis. Medication regimen is being adjusted with the help of nephrology. The patient continues to have net negative fluid balance. The patient has lost a significant amount of fluids since admission. Up to date the patient has been having negative 18.8 liters. The most current diuretic regimen is Diamox 250 mg by mouth daily, spironolactone 25 mg by mouth twice a day, torsemide 20 mg by mouth twice a day. 2. Atrial fibrillation with rapid ventricular response (RVR). Amiodarone, metoprolol, Pradaxa. 3. History of nonsustained ventricular tachycardia (Vtac). Amiodarone and metoprolol. No recurrence noted on the telemetry. 4. Hypertension. Blood pressure is in the satisfactory range. 5. Obstructive sleep apnea (JANE). JANE protocol. Per patient, the patient did not followup with repeated sleep study. The patient does not have a CPAP at home. 6. Type 2 diabetes. A1c 6.3. Sliding scale. On consistent carbohydrate diet. 7. History of COPD. On 1 liter of oxygen at the baseline. No exacerbation at this moment 8. History of pulmonary hypertension. 9. History iron deficiency anemia. Hemoglobin and hematocrit within normal range. Continue to monitor. 10. Elevated TSH with free normal free T4. 11. Acute kidney injury. The patient is currently under active diuretic adjustment. Nephrology has been assisting on the patient's care. Appreciate Dr. Osuna's recommendation. 12. DVT prophylaxis. On Pradaxa.
[2017-02-08 20:27] VITALS: BP 89/46
[2017-02-08 20:30] VITALS: BP 82/50
[2017-02-08] MEDS: ATORVASTATIN 20 MG TAB PO SCH (21:55)
[2017-02-09 01:00] VITALS: BP 98/58
[2017-02-09] MEDS: IPRATROPIUM 0.5MG/ALBUTEROL 2.5MG INH SOL UD 3ML (DUONEB)(J7620) NEB SCH ×4 (02:00→20:48)
[2017-02-09 05:10] VITALS: BP 98/52
[2017-02-09 06:50] LABS: MEAN CORPUSCULAR HEMOGLOBIN 30.3 pg (27.0-33.0); MEAN CORPUSCULAR HGB CONC 31.7 g/dl (32.0-36.5); MEAN CORPUSCULAR VOLUME 95.7 fl (80.0-96.0); RED CELL DISTRIBUTION WIDTH 15.8 % (11.5-14.5); WHITE BLOOD COUNT 7.8 10^3/uL (4.0-10.0)
[2017-02-09 07:00] LABS: CALCIUM LEVEL 8.8 MG/DL (8.8-10.2); CREATININE FOR GFR 1.43 MG/DL (0.55-1.02); MAGNESIUM LEVEL 2.7 MG/DL (1.8-2.4); POTASSIUM SERUM 3.4 MEQ/L (3.5-5.1)
[2017-02-09] MEDS ORDERED: POTASSIUM CHLORIDE 10 MEQ SR TABLET PO ONE (07:45)
[2017-02-09] MEDS: TIOTROPIUM INHALER/CAPSULE (SPIRIVA) INH SCH (07:45)
[2017-02-09] MEDS: ASPIRIN 81 MG ENTERIC TAB PO SCH (08:13)
[2017-02-09] MEDS: FERROUS SULFATE 325MG TAB PO SCH (08:13)
[2017-02-09] MEDS: DABIGATRAN ETEXILATE 75 MG CAP (PRADAXA) PO SCH ×2 (08:13→21:42)
[2017-02-09] MEDS: AMIODARONE 200 MG TAB (PACERONE) PO SCH ×2 (08:13→21:42)
[2017-02-09] MEDS: MULTIVITAMINS/MINERALS THERAP 1 TAB PO SCH (08:13)
[2017-02-09] MEDS: HumaLOG INSULIN (NovoLOG) PER UNIT SC SCH ×4 (08:14→20:28)
[2017-02-09] MEDS: NYSTATIN 100,000 UNITS/GM TOPICAL PWD 15 GM TOP SCH ×2 (08:16→21:43)
[2017-02-09] MEDS: METOPROLOL TART 12.5 MG PER 1/2 TAB PO SCH ×2 (09:00→20:27)
[2017-02-09] MEDS: AcetaZOLAMIDE 250 MG TAB PO SCH (10:46)
[2017-02-09] MEDS: SPIRONOLACTONE 25 MG TAB PO SCH ×2 (10:46→21:42)
[2017-02-09] MEDS: NORCO, ANEXSIA 5/325MG TABLET (HYDROcodone/ACETAMINOPHEN) PO PRN ×2 (10:47→21:42)
--- NOTE | 2017-02-09 13:26 | IPN ---
DATE: 02/09/2017 Miss Magaña is seen this morning on her bedside. She is sitting in the chair. She denies any cough, fever, chills, nausea or vomiting. She has chronic hypoxemia and remains on oxygen via nasal cannula. Her peripheral edema has improved since admission. Apparently, she has low blood pressure since last evening and her diuretics have been held this morning. On physical examination, temperature 98.3 degrees Fahrenheit, heart rate 65 per minute and respiratory rate 18 per minute. Blood pressure 98/52 mmHg and oxygen saturation 94%. Intake and output records from yesterday showed total intake 1320 and output 3740 mL. She had a negative fluid balance of about 2400 mL yesterday. Since admission, she has diuresed almost 20 liters. Her head is atraumatic. Neck is supple and there is no jugular venous distention (JVD) sitting upright. Heart sounds are distant and lungs have diminished breath sounds bilaterally. Abdomen is obese, soft and nontender. Extremities: Have no cyanosis or clubbing. Neurologically, she is awake, alert and oriented times three. Today's labs show WBC count 7.8, hemoglobin 12.1 and hematocrit 38.2. Platelets 202. Sodium is 139 and potassium 3.4. BUN 54 and creatinine 1.43. PROBLEMS: 1. Acute kidney injury superimposed on chronic kidney disease. Slight improvement in the creatinine is noted since yesterday. I feel that overall her kidney function has been stable with mild fluctuations. This is probably her baseline kidney function. 2. Hypokalemia. This is related to diuretic use. The patient will be given potassium chloride 40 mEq one dose today. Her torsemide is being held today due to low blood pressure. Electrolytes will be checked again tomorrow morning. 3. Acute on chronic congestive heart failure. The patient seems to be very well diuresed and may have slightly over diuresed. Her blood pressure is low as the result of aggressive diuresis as she has lost about 20 liters of fluid since admission. Her torsemide is being held today. She will receive acetazolamide and spironolactone. 4. Hypotension. Blood pressure is chronically low and it is lower than her baseline today. She is on minimal dose of metoprolol, which is held this morning. I am also going to hold her torsemide for one day. We will reassess her vital signs tomorrow and then consider to resume diuretic. DISPOSITION: At this point, the patient does not seem to be stable for discharge due to low blood pressure and electrolyte abnormality. We will monitor her for next 24 hours.
[2017-02-09 14:00] VITALS: BP 128/62
--- NOTE | 2017-02-09 15:11 | IPN ---
DATE: 02/09/2017 SUBJECTIVE: Patient seen and examined in the room today. Patient denies any acute complaint or acute changes. Still using 1 liter nasal cannula for the oxygen support. Patient started having hypotension starting yesterday evening time; however, patient stated she is asymptomatic. OBJECTIVE: VITAL SIGNS: Temperature is 98.3, pulse 65, respirations 18, blood pressure is 98/52, pulse oximetry is 95% with 1 liter nasal cannula. GENERAL: No sign of acute distress. Alert and oriented times three. HEENT: Normocephalic, atraumatic. Extraocular motor grossly intact. CARDIOVASCULAR: Positive S1, S2, irregularly irregular. LUNGS: Clear to auscultation bilaterally. ABDOMEN: Morbidly obese, soft, nontender, nondistended. Bowel sounds present. EXTREMITIES: Minimal lower extremity edema bilaterally. Compression stockings in place. LABORATORY DATA: WBC 7.8, hemoglobin 12.1, hematocrit 38.2, platelet count is 202. Sodium is 139, potassium 3.4, chloride 103, carbon dioxide 30, BUN 54, creatinine 1.43, GFR is 39, fasting glucose 114, calcium 8.8, magnesium 2.7. ASSESSMENT AND PLAN: 1. Acute on chronic diastolic congestive heart failure. Patient has been receiving diuresis with multiple diuretics. Currently patient has soft blood pressure, so the blood pressure medication will be on hold, and patient's diuretic regimen is also being actively adjusted with the help of nephrology. Continue to monitor intake and output. 2. Hypotension, asymptomatic. Most likely due to the diuretic. Blood pressure medication and diuretic medication have been adjusted. Will continue to monitor. 3. Atrial fibrillation with rapid ventricular response (RVR), on amiodarone and Pradaxa. Metoprolol will be on hold due to concurrent hypotension. 4. History of nonsustained ventricular tachycardia, on amiodarone. Metoprolol will be on hold due to the hypotension. Will continue to monitor. 5. Hypertension. Patient is currently hypotensive. Blood pressure medication on hold. 6. Obstructive sleep apnea (JANE), on JANE protocol. Per patient, patient did not followup with repeat sleep study. Patient does not have a CPAP at home. 7. Type 2 diabetes. A1c of 6.3, on sliding scale and consistent-carbohydrate diet. 8. History of chronic obstructive pulmonary disease (COPD), on 1 liter oxygen at baseline. No exacerbation at this moment. 9. History of pulmonary hypertension. 10. History of iron deficiency anemia. Hemoglobin and hematocrit stable. Continue to monitor. 11. Elevated thyroid-stimulating hormone (TSH) with normal free T4 level. 12. Acute kidney injury. Renal function improving. We appreciate Dr. Osuna's assistance. 13. Deep vein thrombosis (DVT) prophylaxis, on Pradaxa.
[2017-02-09 20:05] VITALS: BP 104/56
[2017-02-09] MEDS: ATORVASTATIN 20 MG TAB PO SCH (21:42)
[2017-02-10] MEDS: IPRATROPIUM 0.5MG/ALBUTEROL 2.5MG INH SOL UD 3ML (DUONEB)(J7620) NEB SCH ×4 (01:42→19:49)
[2017-02-10 04:20] VITALS: BP 110/52
[2017-02-10 05:10] VITALS: BP 112/57
[2017-02-10 05:56] LABS: MEAN CORPUSCULAR HEMOGLOBIN 30.4 pg (27.0-33.0); MEAN CORPUSCULAR HGB CONC 31.3 g/dl (32.0-36.5); RED CELL DISTRIBUTION WIDTH 15.7 % (11.5-14.5); WHITE BLOOD COUNT 8.4 10^3/uL (4.0-10.0)
[2017-02-10 06:14] LABS: CALCIUM LEVEL 8.6 MG/DL (8.8-10.2); CREATININE FOR GFR 1.21 MG/DL (0.55-1.02); GLOMERULAR FILTRATION RATE 47.2 (>45); MAGNESIUM LEVEL 2.6 MG/DL (1.8-2.4); POTASSIUM SERUM 3.9 MEQ/L (3.5-5.1)
[2017-02-10] MEDS: TIOTROPIUM INHALER/CAPSULE (SPIRIVA) INH SCH (07:20)
[2017-02-10] MEDS: METOPROLOL TART 12.5 MG PER 1/2 TAB PO SCH ×2 (09:00→20:34)
[2017-02-10] MEDS: DABIGATRAN ETEXILATE 75 MG CAP (PRADAXA) PO SCH ×2 (09:04→20:35)
[2017-02-10] MEDS: HumaLOG INSULIN (NovoLOG) PER UNIT SC SCH ×4 (09:04→20:33)
[2017-02-10] MEDS: MULTIVITAMINS/MINERALS THERAP 1 TAB PO SCH (09:05)
[2017-02-10] MEDS: SPIRONOLACTONE 25 MG TAB PO SCH ×2 (09:05→20:34)
[2017-02-10] MEDS: FERROUS SULFATE 325MG TAB PO SCH (09:05)
[2017-02-10] MEDS: AMIODARONE 200 MG TAB (PACERONE) PO SCH ×2 (09:05→20:35)
[2017-02-10] MEDS: TORSEMIDE 20 MG TAB PO SCH (09:06)
[2017-02-10] MEDS: AcetaZOLAMIDE 250 MG TAB PO SCH (09:06)
[2017-02-10] MEDS: ASPIRIN 81 MG ENTERIC TAB PO SCH (09:06)
[2017-02-10] MEDS: NYSTATIN 100,000 UNITS/GM TOPICAL PWD 15 GM TOP SCH ×2 (09:07→20:36)
[2017-02-10] MEDS: NORCO, ANEXSIA 5/325MG TABLET (HYDROcodone/ACETAMINOPHEN) PO PRN (10:48)
[2017-02-10 14:00] VITALS: BP 106/54
--- NOTE | 2017-02-10 15:00 | IPN ---
DATE: 02/10/2017 SUBJECTIVE: Patient seen and examined in the room today. Patient has become very concerned about her weight gain. Per patient, patient has been weighed on the bed scale. The patient was noted to have continued increasing weight in the past 48 hours. It was explained to the patient that her input and output has been accurately measured. The patient has had a negative fluid balance and the bed scale usually may not be the most accurate way to determine the patient's fluid status. We offered the patient be remeasured on the regular scale. The patient stated she does not feel she is ready for discharge. OBJECTIVE: VITAL SIGNS: Temperature is 98.7, pulse 79, respirations 18, blood pressure 112/57, pulse oximetry is 99% with 1 liter nasal cannula. GENERAL: Anxious. No sign of acute distress. Alert and oriented times three. HEENT: Normocephalic, atraumatic. Extraocular motor grossly intact. CARDIOVASCULAR: Irregularly irregular. Positive S1, S2. LUNGS: Clear to auscultation bilaterally. Decreased breath sounds due to body habitus. ABDOMEN: Morbidly obese, soft, nontender, nondistended. Bowel sounds present. EXTREMITIES: Compression stockings in place. Minimal swelling at lower extremities. LABORATORY DATA: WBC 8.4, hemoglobin 12.1hematocrit 38.3, platelet count is 201. Sodium is 140, potassium 3.9, chloride 106, carbon dioxide 27, BUN 45, creatinine 1.21, GFR is 47.2, fasting glucose 118, calcium 8.6, magnesium 2.6. ASSESSMENT AND PLAN: 1. Acute on chronic diastolic congestive heart failure. Patient has been receiving diuresis with multiple diuretics. The patient had a soft blood pressure previously and the medication has to be on hold. Today, the patient's blood pressure is in the satisfactory range. The patient's diuretic is also being adjusted. We appreciated Dr. Osuna's assistance. The patient's torsemide has decreased from twice a day dose to daily dose. The patient is continued on spironolactone and Diamox. 2. Hypotension, most likely due to diuretic. Since adjustment of medications, the patient's hypotension has resolved. The patient remains asymptomatic. 3. Atrial fibrillation with rapid ventricular response (RVR), on amiodarone and Pradaxa and beta alfreda. 4. History of nonsustained ventricular tachycardia, on amiodarone and metoprolol. Metoprolol has holding parameters. Patient will continue to be monitored on telemetry. 5. Obstructive sleep apnea (JANE), on JANE protocol. The patient did not follow with repeat sleep study. The patient does not have a CPAP at home at this moment. The patient may need outpatient followup to schedule her sleep study. 6. Type 2 diabetes. A1c of 6.3. On sliding scale and consistent-carbohydrate diet. 7. History of chronic obstructive pulmonary disease (COPD). At baseline, patient uses 1 liter nasal cannula. No exacerbation at this moment. 8. History of pulmonary hypertension. 9. History of iron deficiency anemia. Continue to monitor hemoglobin and hematocrit, both are currently in the normal range. 10. Elevated thyroid-stimulating hormone (TSH) with normal free T4. 11. Acute kidney injury, improving. Appreciate Dr. Osuna's assistance. 12. Deep vein thrombosis (DVT) prophylaxis, on Pradaxa.
[2017-02-10] MEDS: DOCUSATE SODIUM 100 MG CAP PO PRN (18:55)
[2017-02-10] MEDS: ATORVASTATIN 20 MG TAB PO SCH (20:35)
--- NOTE | 2017-02-10 21:42 | IPN ---
DATE: 02/10/2017 SUBJECTIVE: Ms. Magaña is seen this morning on her bedside. She is sitting in the chair and reports not feeling well. She is somewhat upset because of her increasing weight. She denies any unusual dyspnea, chest pain or leg edema. She feels that her abdominal pannus is increasing in size again. Yesterday her torsemide was held due to low blood pressure. The patient denies any fever, chills, nausea or vomiting. PHYSICAL EXAMINATION: VITAL SIGNS: Temperature 98.7 degrees Fahrenheit, heart rate 78 per minute and respiratory rate 18 per minute. Blood pressure of 112/58 mmHg and oxygen saturation 98% on one liter oxygen. Intake and output records from yesterday are recorded as intake 1320 and output 2550 mL. Her recorded weight today is 150 kg. HEAD/NECK: Head is atraumatic. Neck is supple and without jugular venous distention (JVD) or thyroid enlargement. She is sitting upright in the chair at the time of my visit. LUNGS: Have diminished breath sounds but no audible rales or wheezing. CARDIAC: Heart sounds are regular. ABDOMEN: Obese, soft and nontender. I do not feel any significant pitting edema on her abdominal pannus. EXTREMITIES: Have no cyanosis or clubbing. She has trace of lower extremity edema. NEUROLOGIC: She is awake, alert and oriented times three. LABORATORY DATA: Today's labs show WBC count 8.4, hemoglobin 12.0, hematocrit 38.3. Platelets 201. Sodium 140 and potassium 3.9. BUN 45 and creatinine 1.21. PROBLEMS: 1. Acute on chronic congestive heart failure. She remains reasonably well compensated. I feel that her weight is not accurate. She does not have any significant peripheral edema or pulmonary rales. We will resume her torsemide at a decreased dose of 20 mg once a day. She was a negative fluid balance even yesterday when she did not receive any torsemide. We will continue with spironolactone and acetazolamide as previously. 2. Acute kidney injury superimposed on chronic kidney disease. She did have slight improvement in her kidney function since yesterday. Her electrolytes are within normal range. At this point we will continue to monitor her kidney function closely. 3. Hypokalemia. Potassium level has improved to normal range. Her torsemide dose has been decreased and spironolactone dose has been increased. Electrolytes will be rechecked tomorrow morning.
[2017-02-10 22:00] VITALS: BP 107/54
[2017-02-11] MEDS: IPRATROPIUM 0.5MG/ALBUTEROL 2.5MG INH SOL UD 3ML (DUONEB)(J7620) NEB SCH ×4 (01:24→20:00)
[2017-02-11 06:00] VITALS: BP 106/50
[2017-02-11 08:12] LABS: MEAN CORPUSCULAR HEMOGLOBIN 30.2 pg (27.0-33.0); MEAN CORPUSCULAR VOLUME 97.5 fl (80.0-96.0); RED CELL DISTRIBUTION WIDTH 15.9 % (11.5-14.5); WHITE BLOOD COUNT 8.3 10^3/uL (4.0-10.0)
[2017-02-11] MEDS: TIOTROPIUM INHALER/CAPSULE (SPIRIVA) INH SCH (08:55)
[2017-02-11] MEDS: METOPROLOL TART 12.5 MG PER 1/2 TAB PO SCH ×2 (09:00→20:38)
[2017-02-11 09:09] LABS: CALCIUM LEVEL 8.1 MG/DL (8.8-10.2); CREATININE FOR GFR 1.15 MG/DL (0.55-1.02); GLOMERULAR FILTRATION RATE 50.1 (>45); POTASSIUM SERUM 3.9 MEQ/L (3.5-5.1)
[2017-02-11] MEDS: MULTIVITAMINS/MINERALS THERAP 1 TAB PO SCH (09:16)
[2017-02-11] MEDS: DABIGATRAN ETEXILATE 75 MG CAP (PRADAXA) PO SCH ×2 (09:16→21:55)
[2017-02-11] MEDS: FERROUS SULFATE 325MG TAB PO SCH (09:16)
[2017-02-11] MEDS: DOCUSATE SODIUM 100 MG CAP PO PRN (09:16)
[2017-02-11] MEDS: AcetaZOLAMIDE 250 MG TAB PO SCH (09:16)
[2017-02-11] MEDS: TORSEMIDE 20 MG TAB PO SCH (09:17)
[2017-02-11] MEDS: ASPIRIN 81 MG ENTERIC TAB PO SCH (09:17)
[2017-02-11] MEDS: SPIRONOLACTONE 25 MG TAB PO SCH ×2 (09:17→21:56)
[2017-02-11] MEDS: AMIODARONE 200 MG TAB (PACERONE) PO SCH ×2 (09:17→21:55)
[2017-02-11] MEDS: HumaLOG INSULIN (NovoLOG) PER UNIT SC SCH ×4 (09:18→20:39)
[2017-02-11] MEDS: NORCO, ANEXSIA 5/325MG TABLET (HYDROcodone/ACETAMINOPHEN) PO PRN ×2 (09:19→22:06)
[2017-02-11] MEDS: NYSTATIN 100,000 UNITS/GM TOPICAL PWD 15 GM TOP SCH ×2 (09:20→21:57)
[2017-02-11 14:00] VITALS: BP 98/79
--- NOTE | 2017-02-11 16:08 | IPN ---
DATE: 02/11/2017 SUBJECTIVE: The patient is seen and examined in the room today. The patient denies any complaint about worsening shortness of breath, denies any chest pain. The patient continues to have negative fluid balance. OBJECTIVE: VITAL SIGNS: Temperature is 97.1, pulse 59, respirations 19, blood pressure 116/50. Pulse oximetry 95% with one liter nasal cannula. GENERAL: No sign of acute distress. Alert and oriented times three. Morbidly obese. HEENT: Normocephalic, atraumatic. Extraocular motor grossly intact. CARDIOVASCULAR: Irregularly irregular. Positive S1, S2. LUNGS: Clear to auscultation bilaterally. Decreased breath sounds due to body habitus. ABDOMEN: Soft, nontender, nondistended. Bowel sounds present. EXTREMITIES: Compression stocking in place. Very minimal swelling of the lower extremities. LABORATORY DATA: WBC 8.3, hemoglobin 11.9, hematocrit 38.4, platelet count 212. Sodium is 141. Potassium 3.9, chloride 106, carbon dioxide 27, BUN 38, creatinine 1.15, GFR 50.1, fasting glucose 106, calcium 8.1. ASSESSMENT AND PLAN: 1. Acute on chronic diastolic congestive heart failure: The patient continues to receive diuresis from multiple diuretics. Nephrology Dr. Osuna has been assisting on the case. We appreciate his opinions. Currently the patient is on Diamox, torsemide and spironolactone. 2. Hypotension, most likely due to diuretic. Continue to monitor. The patient is asymptomatic. 3. Atrial fibrillation with rapid ventricular rate (RVR) on amiodarone, metoprolol tartrate and Pradaxa. 4. History of nonsustained ventricular tachycardia (V-tac). On amiodarone and metoprolol. The patient continues to be monitored on telemetry. 5. Obstructive sleep apnea (JANE) on JANE protocol. The patient did not have a repeat sleep study. The patient does not have continuous positive airway pressure (CPAP) at home. The patient may need to followup in outpatient setting to schedule her sleep study. 6. Type 2 diabetes. A1c is 6.3. On sliding scale. On consistent carbohydrate diet. 7. History of chronic obstructive pulmonary disease (COPD). At the baseline, requires one liter nasal cannula. No exacerbation at this moment. 8. History of pulmonary hypertension. 9. History of iron-deficiency anemia. We will continue to monitor. 10. Elevated thyroid function with normal free T4. 11. Acute kidney injury improving. 12. Deep venous thrombosis (DVT) prophylaxis on Pradaxa.
--- NOTE | 2017-02-11 18:27 | IPN ---
DATE: 02/11/2017 SUBJECTIVE: Ms. Magaña is seen this afternoon on her bedside. She is lying in the bed today. She reports feeling better today and denies any worsening dyspnea or peripheral edema. She has no fever, chills, nausea or vomiting. PHYSICAL EXAMINATION: VITAL SIGNS: Temperature 97.1 degrees Fahrenheit, heart rate 74 per minute and respiratory rate 18 per minute. Blood pressure this morning 108/52 mmHg and now 98/79 mmHg. Oxygen saturation between 90% and 95% on one liter oxygen. Intake and output records from yesterday show a negative fluid balance of 360 mL. She has been consistently in negative balance for all week. HEAD/NECK: Her head is atraumatic. Neck is supple and I do not see any abnormal jugular venous distention (JVD). LUNGS: Have moderate bilateral air entry. HEART: Sounds are regular. ABDOMEN: Obese and nontender. Bowel sounds are normal. EXTREMITIES: Have no cyanosis or clubbing. NEUROLOGIC: She is awake, alert and oriented times three. LABORATORY DATA: Today's labs show WBC count 8.3, hemoglobin 11.9 and hematocrit 38.4. Platelets 212. A urinalysis is done today which showed 23 WBCs and five RBCs, but no bacteria. Her chemistry showed sodium 141 and potassium 3.9. BUN 38 and creatinine 1.15. PROBLEMS: 1. Congestive heart failure. I feel the patient is reasonably well compensated and I would continue on current diuretic regimen. Her torsemide dose was cut down to 20 mg daily yesterday. With twice a day torsemide, she had become hypotensive. 2. Acute on chronic kidney disease. She did have worsening kidney function a few days ago which has now improved back to baseline. Her electrolytes are now within normal range. DISPOSITION: The patient seems doing well and she is now willing to go home tomorrow. I feel that medically she is stable for discharge. I would recommend to continue with oral fluid restriction of 1500 mL per day at home along with current diuretics. She will followup with Dr. Melton in next couple of weeks as an outpatient.
[2017-02-11] MEDS: ATORVASTATIN 20 MG TAB PO SCH (21:56)
[2017-02-11 22:00] VITALS: BP 105/51
[2017-02-12] MEDS: IPRATROPIUM 0.5MG/ALBUTEROL 2.5MG INH SOL UD 3ML (DUONEB)(J7620) NEB SCH ×2 (02:00→07:08)
[2017-02-12 05:39] LABS: MEAN CORPUSCULAR HEMOGLOBIN 30.5 pg (27.0-33.0); MEAN CORPUSCULAR HGB CONC 31.5 g/dl (32.0-36.5); MEAN CORPUSCULAR VOLUME 96.8 fl (80.0-96.0); RED CELL DISTRIBUTION WIDTH 15.9 % (11.5-14.5); WHITE BLOOD COUNT 7.6 10^3/uL (4.0-10.0)
[2017-02-12 05:59] LABS: CALCIUM LEVEL 8.6 MG/DL (8.8-10.2); CREATININE FOR GFR 1.16 MG/DL (0.55-1.02); GLOMERULAR FILTRATION RATE 49.6 (>45); POTASSIUM SERUM 3.8 MEQ/L (3.5-5.1)
[2017-02-12 06:00] VITALS: BP 102/55
[2017-02-12] MEDS: TIOTROPIUM INHALER/CAPSULE (SPIRIVA) INH SCH (07:08)
[2017-02-12] MEDS: NORCO, ANEXSIA 5/325MG TABLET (HYDROcodone/ACETAMINOPHEN) PO PRN (07:53)
[2017-02-12] MEDS: HumaLOG INSULIN (NovoLOG) PER UNIT SC SCH ×2 (07:53→12:23)
[2017-02-12] MEDS ORDERED: DICLOFENAC EPOLAMINE 1.3 % PATCH TOP SCH (09:00)
[2017-02-12] MEDS: DABIGATRAN ETEXILATE 75 MG CAP (PRADAXA) PO SCH (10:20)
[2017-02-12] MEDS: AMIODARONE 200 MG TAB (PACERONE) PO SCH (10:20)
[2017-02-12] MEDS: ASPIRIN 81 MG ENTERIC TAB PO SCH (10:21)
[2017-02-12] MEDS: FERROUS SULFATE 325MG TAB PO SCH (10:21)
[2017-02-12] MEDS: AcetaZOLAMIDE 250 MG TAB PO SCH (10:21)
[2017-02-12] MEDS: MULTIVITAMINS/MINERALS THERAP 1 TAB PO SCH (10:24)
[2017-02-12 10:26] VITALS: BP 129/67
[2017-02-12] MEDS: SPIRONOLACTONE 25 MG TAB PO SCH (10:26)
[2017-02-12] MEDS: DOCUSATE SODIUM 100 MG CAP PO PRN (10:26)
[2017-02-12] MEDS: TORSEMIDE 20 MG TAB PO SCH (10:26)
[2017-02-12] MEDS: METOPROLOL TART 12.5 MG PER 1/2 TAB PO SCH (10:26)
[2017-02-12] MEDS: NYSTATIN 100,000 UNITS/GM TOPICAL PWD 15 GM TOP SCH (10:27)
--- NOTE | 2017-02-12 12:35 | IPN ---
DATE OF VISIT: 02/12/2017 Mrs. Magaña is seen this morning on her bedside. She has complained of severe pain in her left wrist area. She denies any trauma or fall. She denies any nausea or vomiting. Her chronic dyspnea is unchanged and she remains on oxygen. She has no fever or chills. On physical exam, temperature 97.2 degrees Fahrenheit, heart rate 60 per minute and respiratory rate 20 per minute. Blood pressure 129/67 mmHg and oxygen saturation 94% on 1 liter of oxygen. Head is atraumatic. Neck is supple and without any obvious jugular venous distention (JVD) or thyroid enlargement. Ears, nose and throat are unremarkable. Heart sounds are regular and lungs with moderate bilateral air entry. Abdomen obese with a large abdominal pannus. Bowel sounds are present. Extremities have no cyanosis or clubbing. On her left wrist area she has tenderness but no redness or increased temperature. She has no known h/o gout. Today's labs show WBC count 7.6, hemoglobin 11.3 and hematocrit 35.9. Platelets 187. Sodium 140 and potassium 3.8, BUN 37 and creatinine 1.16. Calcium level is 8.6. PROBLEMS: 1. Congestive heart failure. Her volume status seems to be reasonably well-compensated. Weight in the hospital is not reliable. Intake and output records revealed negative fluid balance. We will continue with current diuretic regimen. 2. Acute on chronic kidney disease. She has no change in her kidney function. This is most likely her baseline. 3. Left wrist pain. Probably patient has tendonitis or arthritis. She has no known history of gout. I do not see any clinical signs of acute gout. We will give her a trial of diclofenac topical application and see how she responds. DISPOSITION: From a renal standpoint, patient can be discharged to home any time. MTDD
[2017-02-12] MEDS ORDERED: ACET250T2 PO (12:36)
[2017-02-12] MEDS ORDERED: AMIO200T PO (12:36)
[2017-02-12] MEDS ORDERED: DEMA20TA6 PO (12:36)
[2017-02-12 14:00] VITALS: BP 121/61
--- NOTE | 2017-02-13 18:58 | DSES ---
DATE OF ADMISSION: 02/01/2017 DATE OF DISCHARGE: 02/12/2017 PRIMARY CARE PROVIDER: [facility] CONSULTANTS: Nephrology, Dr. Osuna CARDIOLOGISTS: Dr. Choudhary and Dr. Bowen DC DIAGNOSES: 1. Acute on chronic diastolic congestive heart failure. 2. Atrial fibrillation with rapid ventricular response (RVR). 3. History of nonsustained ventricular tachycardia. 4. Obstructive sleep apnea (JANE). 5. Type 2 diabetes. 6. Pulmonary hypertension. 7. History of chronic obstructive pulmonary disease (COPD). 8. History of iron deficiency anemia. 9. Elevated thyroid-stimulating hormone (TSH) with a normal free T4. 10. Acute kidney injury. HOSPITALIZATION COURSE: Patient is an 67-year-old female who presented to [facility] on 02/01/2017 for 1-week of shortness of breath. The patient was admitted for decompensated diastolic congestive heart failure and Dr. Osuna was consulted, and the patient was started on intravenous (IV) Lasix diuresis and other diuretic regimen was also adjusted by nephrology. Later, the journalists and other writers was consulted for atrial fibrillation with RVR and hypotension. The patient was started on digoxin and diltiazem drip and those cardiac medications adjusted with cardiology assistance. The patient was also started on anticoagulation. The patient continued to show significant diuresis with the diuretic, and the patient continued to show symptomatic improvement. On 02/12/2017, the patient was approaching her baseline and patient determined to be medically stable for discharge with the recommendation to followup with her primary care provider and nephrology and cardiology at the scheduled time. OBJECTIVE: VITAL SIGNS: Temperature is 98.3, pulse is 64, respirations 20, blood pressure 121/61, pulse oximetry is 91% with one liter nasal cannula. INTAKE AND OUTPUT THROUGHOUT THE WHOLE HOSPITALIZATION: Patient admitted from 02/01/2017 to 02/12/2017; total fluid balance was -28.69 mL. LABORATORY DATA ON THE DAY OF DISCHARGE: WBC 7.6, hemoglobin 11.3, hematocrit 35.9, platelet count is 187. Sodium is 140, potassium is 3.8, chloride 107, carbon dioxide 30, BUN 37, creatinine 1.16, GFR is 49.6, fasting glucose 117, calcium is 8.6. Microbiology: Blood culture on 02/01/2017: Negative after 5 days times two sets. IMAGING STUDIES: Chest x-ray on 02/01/2017 showed chronic interstitial changes and cardiomegaly. Bilateral lower extremity Doppler showed no evidence of deep vein thrombosis (DVT). DISCHARGE MEDICATIONS: - acetazolamide 250 mg by mouth daily - amiodarone 400 mg by mouth twice a day - torsemide 20 mg by mouth daily - Tylenol 500 mg by mouth four times a day as needed - Percocet 5/325 one tablet by mouth three times a day as needed - Ventolin two puff inhalation every 4 hours as needed - aspirin 81 mg by mouth daily - atorvastatin 40 mg by mouth nightly - Pradaxa 150 mg by mouth twice a day - Colace 100 mg by mouth daily as needed - ferrous sulfate 325 mg by mouth daily - Breo one puff inhalation daily - loratadine 10 mg by mouth daily as needed - magnesium chloride 64 mg by mouth three times a week - metformin 500 mg by mouth twice a day - metolazone 2.5 mg by mouth three times a week - metoprolol tartrate 12.5 mg by mouth twice a day - multivitamin one tablet by mouth daily - potassium chloride 40 mEq by mouth daily - Senna one tablet by mouth twice a day as needed - spironolactone 25 mg by mouth twice a day - Spiriva inhalation daily DISCHARGE INSTRUCTIONS: Discontinue lines. Discharge home. Activity as tolerated. Consistent carbohydrate diet with fluid restriction as tolerated. Patient should followup with her primary care provider in 1-2 weeks. Patient should followup with claims adjuster crop in 1-2 weeks. Patient should followup with cardiology in the outpatient setting. DISCHARGE CONDITION: Stable. DISCHARGE TIME: Greater than 30 minutes.
== END 2017-02-12 15:40 | disposition home or self-care (01) | DRG 291 ==
LOC: M ED 12:51 → EDBD 12:51 → M ED INP 16:13 → M PCU 02-02 13:40 → M MSPAV 02-07 10:45
PROVIDERS: ADMIT Internal Medicine; ATTEND Internal Medicine
DX: I13.0 Hypertensive heart and chronic kidney disease with heart failure and stage 1 through stage 4 chronic kidney disease, or unspecified chronic kidney disease (principal); I50.33 Acute on chronic diastolic (congestive) heart failure; E66.2 Morbid (severe) obesity with alveolar hypoventilation; Z68.43 Body mass index [BMI] 50.0-59.9, adult; I47.2 Ventricular tachycardia; N17.9 Acute kidney failure, unspecified; K59.00 Constipation, unspecified; E11.22 Type 2 diabetes mellitus with diabetic chronic kidney disease; J44.9 Chronic obstructive pulmonary disease, unspecified; N18.3 Chronic kidney disease, stage 3 (moderate); E78.5 Hyperlipidemia, unspecified; I48.0 Paroxysmal atrial fibrillation; E83.42 Hypomagnesemia; R13.10 Dysphagia, unspecified; D50.9 Iron deficiency anemia, unspecified; D75.82 Heparin induced thrombocytopenia (HIT); I27.20 Pulmonary hypertension, unspecified; E83.41 Hypermagnesemia; M25.532 Pain in left wrist; I95.9 Hypotension, unspecified; E87.6 Hypokalemia; I34.1 Nonrheumatic mitral (valve) prolapse; Z87.891 Personal history of nicotine dependence; Z99.81 Dependence on supplemental oxygen; Z88.2 Allergy status to sulfonamides; Z88.8 Allergy status to other drugs, medicaments and biological substances; Z95.5 Presence of coronary angioplasty implant and graft; Z90.49 Acquired absence of other specified parts of digestive tract; Z79.891 Long term (current) use of opiate analgesic; Z79.84 Long term (current) use of oral hypoglycemic drugs; Z79.899 Other long term (current) drug therapy; Z79.01 Long term (current) use of anticoagulants; Z79.82 Long term (current) use of aspirin; Z79.51 Long term (current) use of inhaled steroids

== ENCOUNTER 2017-03-31 14:43 | Inpatient (IN) | payer OTHER ==
[~2017-03-31] VITALS: Ht 167.6 cm; Wt 146.8 kg
[~2017-03-31 14:43] MED LIST changes: +ACET-683 PO; +ACET250T2 PO; +AMIO200T PO; +COLA100C5 PO; +HYDR-3713 PO; +MAGN30TA2 PO; +MAGN64TASA PO; +NYST1POW9 TOP; +POTA20TA PO; +SENN1TAB10 PO; +SPIR25TA2 PO; +TORS20TA2 PO
[2017-03-31] MEDS ORDERED: FUROSEMIDE 100 MG/10 ML VIAL (J1940) IV ONE (15:00)
[2017-03-31 15:11] LABS: BASO % 0.2 % (0.0-1.0); EOS % 0.1 % (0.0-3.0); IMMATURE GRANULOCYTE % 0.4 % (0-0); LYMPH # 0.4 10^3/uL (1.5-4.5); LYMPH % 2.7 % (24.0-44.0); MEAN CORPUSCULAR HEMOGLOBIN 30.3 pg (27.0-33.0); MEAN CORPUSCULAR HGB CONC 30.5 g/dl (32.0-36.5); MEAN CORPUSCULAR VOLUME 99.3 fl (80.0-96.0); MONO # 1.2 10^3/uL (0.0-0.8); MONO % 8.3 % (0.0-5.0); NEUTROPHILS # 12.2 10^3/uL (1.8-7.7); NEUTROPHILS % 88.3 % (36.0-66.0); PLATELET COUNT, AUTOMATED 210 10^3/uL (150-450); RED CELL DISTRIBUTION WIDTH 16.1 % (11.5-14.5); VENOUS BASE EXCESS 2.8 (-2.0-2.0); VENOUS O2 SATURATION 83.9 % (60.0-80.0); VENOUS PARTIAL PRESSURE O2 48.6 mmHg (30.0-50.0); VENOUS STANDARD HCO3 26.6 MEQ/L; VENOUS TOTAL CO2 30.2 MEQ/L (24.0-28.0); WHITE BLOOD COUNT 13.8 10^3/uL (4.0-10.0)
[2017-03-31] MEDS ORDERED: ASPIRIN 81 MG CHEW TABLET PO ONE (15:15)
[2017-03-31] MEDS: IPRATROPIUM 0.5MG/ALBUTEROL 2.5MG INH SOL UD 3ML (DUONEB)(J7620) NEB PRN ×2 (15:22→15:44)
--- NOTE | 2017-03-31 15:36 | REP ---
Chest two views HISTORY: Dyspnea Comparison: 02/01/2017 The radiographs are underpenetrated. An increase in interstitial markings is present in the lungs consistent with chronic interstitial change. The cardiac silhouette is enlarged. The pulmonary vasculature is normal in appearance. The bony structure is intact. IMPRESSION: 1. Limited examination demonstrating chronic interstitial change. Superimposed edema cannot be excluded. 2. Cardiomegaly. Signed by Simón Mistry MD 03/31/2017 03:28 P
[2017-03-31] MEDS ORDERED: AMIO200T PO (16:39)
[2017-03-31] MEDS ORDERED: TORS20TA2 PO (16:39)
[2017-03-31] MEDS ORDERED: VENTAER PO (16:42)
[2017-03-31] MEDS ORDERED: BREO1INH3 INH (16:42)
[2017-03-31 17:08] LABS: ALBUMIN 3.3 GM/DL (3.2-5.2); ALBUMIN/GLOBULIN RATIO 0.8 (1.00-1.93); BILIRUBIN,DIRECT 1.2 MG/DL (0.0-0.2); BILIRUBIN,TOTAL 2.3 MG/DL (0.2-1.0); CALCIUM LEVEL 8.5 MG/DL (8.8-10.2); CREATININE FOR GFR 1.26 MG/DL (0.55-1.02); GLOMERULAR FILTRATION RATE 45.1 (>45); POTASSIUM SERUM 3.6 MEQ/L (3.5-5.1); TOTAL PROTEIN 7.4 GM/DL (6.4-8.2)
--- NOTE | 2017-03-31 17:53 | ECGEPIP ---
Stationary ECG Study [facility] - ED Test Date: 2017-03-31 Pat Name: ALMAS MIDDLETON Department: Room: - Gender: F Behavioral Health Care Coordinator: shanelle : 1950 Requested By: SPRING DUENAS Order Number: [id number] Reading MD: Tika Zamora Measurements Intervals [place] Rate: 89 P: SD: 0 QRS: 106 QRSD: 100 T: 147 QT: 318 QTc: 388 Interpretive Statements ATRIAL FIBRILLATION INCOMPLETE RIGHT BUNDLE BRANCH BLOCK POSSIBLE RIGHT VENTRICULAR HYPERTROPHY NONSPECIFIC ST & T-WAVE ABNORMALITY INCREASED RATE 02/06/17 Electronically Signed On 03-31-2017 17:53:05 EST by Tika Zamora
[2017-03-31] MEDS ORDERED: NORCO, ANEXSIA 5/325MG TABLET (HYDROcodone/ACETAMINOPHEN) PO ONE (18:30)
[2017-03-31 18:51] LABS: PHOSPHORUS LEVEL 2.9 MG/DL (2.5-4.9)
[2017-03-31] MEDS ORDERED: SENNA 8.6 MG TAB (SENOKOT) PO PRN (19:00)
[2017-03-31] MEDS ORDERED: ALBUTEROL 90 MCG/ACT 8GM HFA INHALER INH PRN ×2 (19:00)
[2017-03-31] MEDS ORDERED: ACETAMINOPHEN 500 MG TAB PO PRN (19:00)
[2017-03-31 19:50] LABS: INR 1.58
[2017-03-31] MEDS ORDERED: GLUCAGON FOR INJ 1 MG VIAL (J1610) SC PRN (20:00)
[2017-03-31] MEDS ORDERED: DEXTROSE 50% 50 ML SYRINGE IV PRN (20:00)
[2017-03-31] MEDS ORDERED: GLUCOSE 4 GM CHEW TABLET PO PRN (20:00)
--- NOTE | 2017-03-31 20:20 | HPEPDOC ---
General Date of Admission Mar 31, 2017 at 18:02 Primary Care Physician: Larry Zamudio MD Other Providers PCP: Resident clinic Marker Assembler: Dr. Choudhary Mattress Specialist Dr. Melton Lapidary Apprentice: Dr. Fletcher Attending Physician: ANASTASIIA RUIZ MD Chief Complaint The patient is a 67-year-old female admitted with a reason for visit of CHF. 67 yo F presents to ED via EMS after she fell trying to sit down in chair and per pt, just had miscalculated where the chair was. PMH includes diastolic CHF, paroxysmal A. fib on Pradaxa, HLD, HTN, NIDDM 2, COPD 1L NC, CAD s/p stents x2. Denies presyncopal symptoms, lightheadedness, dizziness, LOC, or hitting her head. States she has been having difficulty ambulating and moving lately due to bilateral leg swelling, associated with shortness of breath, 20+ lb weight gain in past few weeks, orthopnea, paroxysmal nocturnal dyspnea. Pt also admits to not being compliant with meds lately, especially Torsemide and states "I don't take it like I should." Recently admitted to hospital early January 2017 for similar symptoms, acute CHF decompensation. Denies recent travel, changes in meds, sick contacts. Denies chest pain or pressure, lightheadedness, dizziness, n/v, abd pain. Noted in ED to have 3+ pitting edema, weeping fluid in lower legs, crackles in lungs. Given ASA, Lasix, and Duoneb in ED. Home Medications Scheduled Amiodarone HCl (Amiodarone HCl) 200 Mg Tab, 200 MG PO DAILY, (Reported) Aspirin (Aspirin 81) 81 Mg Tab, 81 MG PO DAILY, (Reported) Atorvastatin Calcium (Atorvastatin Calcium) 40 Mg Tab, 40 MG PO QHS, (Reported) Dabigatran Etexilate (Pradaxa) 150 Mg Cap, 150 MG PO BID, (Reported) Ferrous Sulfate (Ferrous Sulfate) 325 Mg Tab, 325 MG PO DAILY, (Reported) Fluticasone/Vilanterol (Breo Ellipta 200-25 Mcg/INH) 1 Inh Inh, 1 PUFF INH DAILY , (Reported) Fluticasone/Vilanterol (Breo Ellipta 200-25 Mcg/INH) 1 Inh Inh, 1 PUFF INH DAILY , (Reported) Metformin Hydrochloride (Metformin HCl) 500 Mg Tab, 500 MG PO BID, (Reported) Metolazone (Metolazone) 2.5 Mg Tab, 2.5 MG PO 3XW, (Reported) SUN, SUN, SUN Metoprolol Tartrate (Metoprolol Tartrate) 25 Mg Tab, 12.5 MG PO BID, (Reported) Multivitamins *[facility] STOCKED* (Thera M Plus *[facility] STOCKED*) 1 Tab Tab, 1 TAB PO DAILY, (Reported) Nystatin (Nystatin Powder) 100,000 Unit/Gm Pow, 1 DOSE TOP BID, (Reported) APPLY TO ABDOMINAL FOLDS Potassium Chloride (Klor-Con M20) 20 Meq Tabcr, 20 MEQ PO BID, (Reported) Spironolactone (Spironolactone) 25 Mg Tab, 25 MG PO BID, (Reported) Tiotropium Barling Monohydrate (Spiriva Handihaler) 18 Mcg Cap, 1 INHALATION INH DAILY, (Reported) Torsemide (Torsemide) 20 Mg Tab, 20 MG PO BID, (Reported) Scheduled PRN Acetaminophen (Acetaminophen Extra Stren) 500 Mg Tab, 500 MG PO QID PRN for PAIN OR FEVER, (Reported) Acetaminophen/Hydrocodone (Hydrocodone/Acetaminophen 5-325 mg) 1 Tab Tab, 1 TAB PO TID PRN for PAIN, (Reported) Albuterol Sulfate (Ventolin Hfa) 200 Puff/8 Gm Aers, 2 PUFF INH Q4H PRN for SHORTNESS OF BREATH, (Reported) Albuterol Sulfate (Ventolin Hfa) 108 Mcg/Act Aer, 108 MCG PO Q4H PRN for SHORTNESS OF BREATH, (Reported) Docusate Sodium (Colace) 100 Mg Cap, 100 MG PO DAILY PRN for CONSTIPATION, ( Reported) Loratadine (Loratadine) 10 Mg Tab, 10 MG PO DAILY PRN for ALLERGIES, (Reported) Senna (Senna Lax) 8.6 Mg Tab, 1 TAB PO BID PRN for CONSTIPATION, (Reported) Allergies Coded Allergies: Sulfa Drugs (Verified Allergy, Unknown, QUESTIONABLE- PARENTS TOLD HER SHE WAS ALLERGIC???, 04/14/16) Sulfa Drugs Cross Reactors (Verified Allergy, Unknown, 08/02/12) Heparin (Verified Adverse Reaction, Intermediate, HIT, 10/07/15) Past Medical History Medical History Diastolic CHF Paroxysmal A. fib, on Pradaxa HLD HTN NIDDM 2 COPD, 1L NC GERD CAD, s/p stents x2 Pulmonary HTN CKD, baseline Cr ~1 Surgical History Cardiac stents x2, 2011 Colon Resection, 2010 Hernia repair x2 Right lumpectomy-benign Left foot tendon repair Review of Symptoms Constitutional: Reports: Other (decreased appetite), Denies: Chills, Fever, Weakness, Fatigue Eyes: Denies: Pain, Vision change ENT: Reports: Head Aches, Denies: Ear Pain, Dysphagia Skin: Reports: Lesions (rt lower leg warm and red) Pulmonary: Reports: Dyspnea, Cough (dry) Cardiovascular: Reports: Orthopnea, Paroxysmal Noc. Dyspnea, Edema (from feet to belly), Denies: Chest Pain, Palpitations, Lt Headedness Gastrointestinal: Reports: Constipation (hard stools), Denies: Nausea, Vomiting, Abdominal Pain, Diarrhea, Melena, Hematochezia Genitourinary: Denies: Dysuria, Hematuria Hematologic: Reports: Bleeding Excessively (easy bleeding & bruising on Pradaxa ) Endocrine: Denies: Heat Intolerance, Cold Intolerance Musculoskeletal: Reports: Back Pain (chronic), Shoulder Pain (right shoulder from fall) Neurological: Denies: Weakness, Numbness, Incoordination, Confusion Psych: Reports: Mood Normal Physical Examination General Exam: Positive: Alert, Cooperative, No Acute Distress Eye Exam: Positive: PERRLA, Conjunctiva & lids normal, EOMI ENT Exam: Positive: Atraumatic, Pharynx Normal, Tongue Midline, Other ENT ( poor dentition), Negative: Pharyngeal Edema Neck Exam: Positive: Supple, Negative: Lymphadenopathy Chest Exam: Positive: Rales (b/l lower lobes), Wheezing (expiratory) Heart Exam: Positive: Rate Normal, Irregular Rhythm, Other (distant heart sounds due to body habitus) Telemetry: Positive: Atrial fibrillation Abdomen Exam: Positive: Normal bowel sounds, Negative: Soft (tense from fluid, with dry skin no lower abdomen), Tenderness Extremity Exam: Positive: Edema (3+), Tenderness (mild tenderness to touch on right LE) Skin Exam: Positive: Lesion (right LE warm & erythematous, weeping clear fluid) Neuro Exam: Positive: Normal Speech, Strength at 5/5 X4 ext, Normal Tone, Sensation Intact Psych Exam: Positive: Mood NL, Oriented x 3 Vital Signs Vital Signs Date Time Temp Pulse Resp B/P (MAP) Pulse Ox O2 Delivery O2 Flow Rate FiO2 03/31/17 19:30 89 111/58 (75) 91 03/31/17 19:01 98.6 17 Nasal Cannula 2.0 Laboratory Data Labs 24H Laboratory Tests 2 03/31/17 15:00: Immature Granulocyte % (Auto) 0.4H, White Blood Count 13.8H, Red Blood Count 4.32, Hemoglobin 13.1, Hematocrit 42.9, Mean Corpuscular Volume 99.3H, Mean Corpuscular Hemoglobin 30.3, Mean Corpuscular Hemoglobin Concent 30.5L, Red Cell Distribution Width 16.1H, Platelet Count 210, Neutrophils (%) (Auto) 88.3H , Lymphocytes (%) (Auto) 2.7L, Monocytes (%) (Auto) 8.3H, Eosinophils (%) (Auto ) 0.1, Basophils (%) (Auto) 0.2, Neutrophils # (Auto) 12.2H, Lymphocytes # (Auto ) 0.4L, Monocytes # (Auto) 1.2H, Eosinophils # (Auto) 0.0, Basophils # (Auto) 0.0, Immature Granulocyte # (Auto) 0.1H, Nucleated Red Blood Cells % (auto) 0.0 , Blood Gas Bicarbonate Standard 26.6, Venous Blood pH 7.386, Venous Blood Partial Pressure CO2 49.0, Venous Blood Partial Pressure O2 48.6, Venous Blood Total Carbon Dioxide 30.2H, Venous Blood HCO3 28.7H, Venous Blood Oxygen Saturation 83.9H, Venous Blood Base Excess 2.8H, Lactic Acid Level 1.9 03/31/17 16:19: Anion Gap 9, Glomerular Filtration Rate 45.1, Calcium Level 8.5L, Phosphorus Level 2.9, Magnesium Level 2.0, Aspartate Amino Transf (AST/SGOT) 12, Alanine Aminotransferase (ALT/SGPT) 11L, Alkaline Phosphatase 88, Total Bilirubin 2.3H, Direct Bilirubin 1.2H, Total Creatine Kinase 34, Creatine Kinase MB 1.6, Creatine Kinase MB Relative Index 4.70H, Troponin I 0.02, BB-Cip-P-Type Natriuretic Peptide 3845H, Total Protein 7.4, Albumin 3.3, Albumin/Globulin Ratio 0.80L 03/31/17 18:17: Urine Appearance CLEAR, Urine Color YELLOW, Urine pH 5.0, Urine Specific [place] 1.009, Urine Protein NEGATIVE, Urine Glucose (UA) NEGATIVE, Urine Ketones NEGATIVE, Urine Urobilinogen 0.2, Urine Bilirubin NEGATIVE, Urine Leukocyte Esterase NEGATIVE, Urine Blood 2+H, Urine Nitrite NEGATIVE, Urine WBC (Auto) 1, Urine RBC (Auto) 3, Urine Hyaline Casts (Auto) 5, Urine Bacteria (Auto ) NEGATIVE, Urine Squamous Epithelial Cells 1, Urine Mucus (Auto) SMALL, Urine Sperm (Auto) 03/31/17 19:26: Prothrombin Time 19.3H, Prothromb Time International Ratio 1.58 CBC/BMP Laboratory Tests 03/31/17 15:00 Red Blood Count 4.32, Mean Corpuscular Volume 99.3 H, Mean Corpuscular Hemoglobin 30.3, Mean Corpuscular Hemoglobin Concent 30.5 L, Red Cell Distribution Width 16.1 H, Neutrophils (%) (Auto) 88.3 H, Lymphocytes (%) (Auto ) 2.7 L, Monocytes (%) (Auto) 8.3 H, Eosinophils (%) (Auto) 0.1, Basophils (%) ( Auto) 0.2, Neutrophils # (Auto) 12.2 H, Lymphocytes # (Auto) 0.4 L, Monocytes # (Auto) 1.2 H, Eosinophils # (Auto) 0.0, Basophils # (Auto) 0.0 03/31/17 16:19 Microbiology Microbiology 03/31/17 Blood Culture, Received Pending 03/31/17 Blood Culture, Received Pending 03/31/17 Urine Culture, Received Pending Assessment/Plan Acute decompensated heart failure hx of diastolic HF. Presented with 20+ lb wt gain in past few weeks, dyspneic, orthopnea, PND. Cardiac markers neg. BNP elevated, cardiomegaly on CXR, crackles and 3+ pitting edema on PE hold home Torsemide Metolazone 2.5 daily, Lasix 80 bid IV with net neg 2L, Aldactone daily strict I/Os, daily weights, low salt diet Right LE Cellulitis warm, erythematous, tender to touch, weeping clear fluid will start Teflaro Leukocytosis likely combination of: reactionary to acute CHF decompensation and RLE cellulitis start Teflaro urine, blood cultures pending Hyperbilirubinemia may be 2/2 volume overload status monitor and trend. May require ultrasound if continues to be elevated Paroxysmal A.Fib on Pradaxa rate controlled on home Metoprolol NIDDM2 hold home Metformin due to elevated Cr ISS inpatient COPD no acute exacerbation on 1L NC all the time at home. Will continue continue home Ventolin HLD continue home med HTN continue home med GERD continue home med DISPOSITION: will admit to hospital and transfer care to Dr. Ruiz's service in am. Plan / VTE VTE Prophylaxis Ordered?: Yes GME ATTESTATION GME ATTESTATION My faculty preceptor for this patient encounter was physically present during the encounter and was fully available. All aspects of the patient interview, examination, medical decision making process, and medical care plan development were reviewed and approved by the faculty preceptor. The faculty preceptor is aware and concurs with the plan as stated in the body of this note and will attest to such by his/her cosignature. IRMA GUTIERREZ DO Mar 31, 2017 20:19
[2017-03-31 20:46] VITALS: BP 119/73
[2017-03-31] MEDS: HumaLOG INSULIN (NovoLOG) PER UNIT SC SCH (21:00)
[2017-03-31] MEDS ORDERED: SLF 3 ML SYR IV PRN (21:45)
[2017-03-31] MEDS: CEFTAROLINE FOSAMIL 400 MG in APPROPRIATE DILUENT 1 EA IV SCH (22:26)
[2017-03-31] MEDS: METOPROLOL TART 12.5 MG PER 1/2 TAB PO SCH (22:26)
[2017-03-31] MEDS: ATORVASTATIN 20 MG TAB PO SCH (22:26)
[2017-03-31] MEDS: NYSTATIN 100,000 UNITS/GM TOPICAL PWD 15 GM TOP SCH (22:27)
[2017-03-31] MEDS: DABIGATRAN ETEXILATE 75 MG CAP (PRADAXA) PO SCH (22:27)
[2017-03-31] MEDS: SLF 3 ML SYR IV SCH (22:28)
[2017-04-01] VITALS: BP 107/57
[2017-04-01] MEDS ORDERED: PERCOCET 5MG/325MG TAB PO ONE (02:15)
[2017-04-01 04:00] VITALS: BP 100/54
[2017-04-01 04:49] LABS: MEAN CORPUSCULAR HEMOGLOBIN 30.7 pg (27.0-33.0); MEAN CORPUSCULAR HGB CONC 30.9 g/dl (32.0-36.5); MEAN CORPUSCULAR VOLUME 99.5 fl (80.0-96.0); PLATELET COUNT, AUTOMATED 174 10^3/uL (150-450); RED CELL DISTRIBUTION WIDTH 16.1 % (11.5-14.5); WHITE BLOOD COUNT 10.8 10^3/uL (4.0-10.0)
[2017-04-01 05:09] LABS: CALCIUM LEVEL 8.3 MG/DL (8.8-10.2); CREATININE FOR GFR 1.23 MG/DL (0.55-1.02); GLOMERULAR FILTRATION RATE 46.4 (>45); MAGNESIUM LEVEL 1.9 MG/DL (1.8-2.4); POTASSIUM SERUM 3.3 MEQ/L (3.5-5.1)
[2017-04-01] MEDS ORDERED: MAG SULF 1GM/100ML (MAG RUN) 1 GM in APPROPRIATE DILUENT 1 EA IV ONE (06:15)
[2017-04-01] MEDS ORDERED: POTASSIUM CHLORIDE 10 MEQ SR TABLET PO ONE (06:15)
[2017-04-01] MEDS: SLF 3 ML SYR IV SCH ×3 (06:44→20:22)
[2017-04-01] MEDS ORDERED: NORCO, ANEXSIA 5/325MG TABLET (HYDROcodone/ACETAMINOPHEN) PO ONE (06:45)
--- NOTE | 2017-04-01 06:50 | IPNPDOC ---
Date Seen The patient was seen on 04/01/17. Progress Note SUBJECTIVE:Patient is seen and examined at the bedside. chart has been reviewed. She still complains of shortness of breath and slept upright due to severe orthopnea. She complains of right wrist pain from her fall but has full range of motion and a visible bruise, denies paresthesias, weakness, or decreased hand doffer. She also c/o right LE venous ulcers that are weeping as well as generalized pain from the fall requesting norco. Vitals reviewed General Exam: Positive: Alert, Cooperative, No Acute Distress Eye Exam: Positive: PERRLA, Conjunctiva & lids normal, EOMI ENT Exam: Positive: Atraumatic, Pharynx Normal, Tongue Midline, Other ENT ( poor dentition), Negative: Pharyngeal Edema Neck Exam: Positive: Supple, Negative: Lymphadenopathy Chest Exam: Positive: Rales (b/l lower lobes), Wheezing (expiratory) Heart Exam: Positive: Rate Normal, Irregular Rhythm, Other (distant heart sounds due to body habitus) Telemetry: Positive: Atrial fibrillation Abdomen Exam: Positive: Normal bowel sounds, Negative: Soft (tense from fluid, with dry skin no lower abdomen), Tenderness Extremity Exam: Positive: Edema (3+), Tenderness (mild tenderness to touch on right LE) Skin Exam: Positive: Lesion (right LE warm & erythematous, weeping clear fluid) Neuro Exam: Positive: Normal Speech, Strength at 5/5 X4 ext, Normal Tone, Sensation Intact Psych Exam: Positive: Mood NL, Oriented x 3 Laboratory data/imaging studies reviewed. 67-year-old female admitted with a reason for visit of CHF. 67 yo F presents to ED via EMS after she fell trying to sit down in chair and per pt, just had miscalculated where the chair was. PMH includes diastolic CHF, paroxysmal A. fib on Pradaxa, HLD, HTN, NIDDM 2, COPD 1L NC, CAD s/p stents x2. Denies presyncopal symptoms, lightheadedness, dizziness, LOC, or hitting her head. States she has been having difficulty ambulating and moving lately due to bilateral leg swelling, associated with shortness of breath, 20+ lb weight gain in past few weeks, orthopnea, paroxysmal nocturnal dyspnea. Pt also admits to not being compliant with meds lately, especially Torsemide and states "I don't take it like I should." Recently admitted to hospital early January 2017 for similar symptoms, acute CHF decompensation. Denies recent travel, changes in meds, sick contacts. Denies chest pain or pressure, lightheadedness, dizziness, n/v, abd pain. Noted in ED to have 3+ pitting edema, weeping fluid in lower legs, crackles in lungs. Given ASA, Lasix, and Duoneb in ED. Assessment/Plan Acute decompensated heart failure hx of diastolic HF. Presented with 20+ lb wt gain in past few weeks, dyspneic, orthopnea, PND. Cardiac markers neg. BNP elevated, cardiomegaly on CXR, crackles and 3+ pitting edema on PE hold home Torsemide Metolazone 2.5 daily, Lasix 80 bid IV with net neg 2L, Aldactone daily strict I/Os, daily weights, low salt diet Right LE Cellulitis warm, erythematous, tender to touch, weeping clear fluid will start Teflaro Leukocytosis likely combination of: reactionary to acute CHF decompensation and RLE cellulitis start Teflaro urine, blood cultures pending Hyperbilirubinemia may be 2/2 volume overload status monitor and trend. May require ultrasound if continues to be elevated Paroxysmal A.Fib on Pradaxa rate controlled on home Metoprolol NIDDM2 hold home Metformin due to elevated Cr ISS inpatient COPD no acute exacerbation on 1L NC all the time at home. Will continue continue home Ventolin HLD continue home med HTN continue home med GERD continue home med Right wrist pain s/p fall at home. Range of motion intact, and no motor/sensory changes. therefore, prn pain meds and physical therapy Right LE venous stasis ulcer: obtain wound care consult. VS, I&O, 24H, Fishbone Vital Signs/I&O Vital Signs Date Time Temp Pulse Resp B/P (MAP) Pulse Ox O2 Delivery O2 Flow Rate FiO2 04/01/17 04:00 97.7 64 20 100/54 (69) 2 Nasal Cannula 04/01/17 04:00 2.0 Laboratory Data 24H LABS Laboratory Tests 2 03/31/17 15:00: Immature Granulocyte % (Auto) 0.4H, White Blood Count 13.8H, Red Blood Count 4.32, Hemoglobin 13.1, Hematocrit 42.9, Mean Corpuscular Volume 99.3H, Mean Corpuscular Hemoglobin 30.3, Mean Corpuscular Hemoglobin Concent 30.5L, Red Cell Distribution Width 16.1H, Platelet Count 210, Neutrophils (%) (Auto) 88.3H , Lymphocytes (%) (Auto) 2.7L, Monocytes (%) (Auto) 8.3H, Eosinophils (%) (Auto ) 0.1, Basophils (%) (Auto) 0.2, Neutrophils # (Auto) 12.2H, Lymphocytes # (Auto ) 0.4L, Monocytes # (Auto) 1.2H, Eosinophils # (Auto) 0.0, Basophils # (Auto) 0.0, Immature Granulocyte # (Auto) 0.1H, Nucleated Red Blood Cells % (auto) 0.0 , Blood Gas Bicarbonate Standard 26.6, Venous Blood pH 7.386, Venous Blood Partial Pressure CO2 49.0, Venous Blood Partial Pressure O2 48.6, Venous Blood Total Carbon Dioxide 30.2H, Venous Blood HCO3 28.7H, Venous Blood Oxygen Saturation 83.9H, Venous Blood Base Excess 2.8H, Lactic Acid Level 1.9 03/31/17 16:19: Anion Gap 9, Glomerular Filtration Rate 45.1, Calcium Level 8.5L, Phosphorus Level 2.9, Magnesium Level 2.0, Aspartate Amino Transf (AST/SGOT) 12, Alanine Aminotransferase (ALT/SGPT) 11L, Alkaline Phosphatase 88, Total Bilirubin 2.3H, Direct Bilirubin 1.2H, Total Creatine Kinase 34, Creatine Kinase MB 1.6, Creatine Kinase MB Relative Index 4.70H, Troponin I 0.02, GX-Keb-[id number]-Type Natriuretic Peptide 3845H, Total Protein 7.4, Albumin 3.3, Albumin/Globulin Ratio 0.80L 03/31/17 18:17: Urine Appearance CLEAR, Urine Color YELLOW, Urine pH 5.0, Urine Specific [place] 1.009, Urine Protein NEGATIVE, Urine Glucose (UA) NEGATIVE, Urine Ketones NEGATIVE, Urine Urobilinogen 0.2, Urine Bilirubin NEGATIVE, Urine Leukocyte Esterase NEGATIVE, Urine Blood 2+H, Urine Nitrite NEGATIVE, Urine WBC (Auto) 1, Urine RBC (Auto) 3, Urine Hyaline Casts (Auto) 5, Urine Bacteria (Auto ) NEGATIVE, Urine Squamous Epithelial Cells 1, Urine Mucus (Auto) SMALL, Urine Sperm (Auto) 03/31/17 19:26: Prothrombin Time 19.3H, Prothromb Time International Ratio 1.58 03/31/17 22:12: Bedside Glucose (Misc Panel) 112 04/01/17 04:34: Nucleated Red Blood Cells % (auto) 0.0, Anion Gap 6L, Glomerular Filtration Rate 46.4, Blood Urea Nitrogen 21H, Creatinine 1.23H, Sodium Level 140, Potassium Level 3.3L, Chloride Level 104, Carbon Dioxide Level 30, Calcium Level 8.3L, Magnesium Level 1.9 CBC/BMP Laboratory Tests 03/31/17 15:00 Red Blood Count 4.32, Mean Corpuscular Volume 99.3 H, Mean Corpuscular Hemoglobin 30.3, Mean Corpuscular Hemoglobin Concent 30.5 L, Red Cell Distribution Width 16.1 H, Neutrophils (%) (Auto) 88.3 H, Lymphocytes (%) (Auto ) 2.7 L, Monocytes (%) (Auto) 8.3 H, Eosinophils (%) (Auto) 0.1, Basophils (%) ( Auto) 0.2, Neutrophils # (Auto) 12.2 H, Lymphocytes # (Auto) 0.4 L, Monocytes # (Auto) 1.2 H, Eosinophils # (Auto) 0.0, Basophils # (Auto) 0.0 03/31/17 16:19 04/01/17 04:34 Red Blood Count 3.81 L, Mean Corpuscular Volume 99.5 H, Mean Corpuscular Hemoglobin 30.7, Mean Corpuscular Hemoglobin Concent 30.9 L, Red Cell Distribution Width 16.1 H, Calcium Level 8.3 L Microbiology Microbiology 03/31/17 Blood Culture, Received Pending 03/31/17 Blood Culture, Received Pending 03/31/17 Urine Culture, Received Pending ANASTASIIA RUIZ MD Apr 01, 2017 05:56
--- NOTE | 2017-04-01 07:25 | REP ---
RIGHT SHOULDER, ONE VIEW: HISTORY: Fall. There is no definite fracture or dislocation. The joint spaces are normal in appearance. IMPRESSION: Limited examination demonstrating no definite fracture or dislocation. Signed by Simón Mistry MD 04/01/2017 08:52 A
[2017-04-01] MEDS: TIOTROPIUM INHALER/CAPSULE (SPIRIVA) INH SCH (08:08)
[2017-04-01 08:14] VITALS: BP 111/59
[2017-04-01] MEDS: HumaLOG INSULIN (NovoLOG) PER UNIT SC SCH ×4 (08:21→21:00)
[2017-04-01] MEDS: FERROUS SULFATE 325MG TAB PO SCH (08:21)
[2017-04-01] MEDS: SPIRONOLACTONE 25 MG TAB PO SCH (08:21)
[2017-04-01] MEDS: ASPIRIN 81 MG ENTERIC TAB PO SCH (08:21)
[2017-04-01] MEDS: METOPROLOL TART 12.5 MG PER 1/2 TAB PO SCH ×2 (08:22→20:21)
[2017-04-01] MEDS: DABIGATRAN ETEXILATE 75 MG CAP (PRADAXA) PO SCH ×2 (08:22→20:16)
[2017-04-01] MEDS: AMIODARONE 200 MG TAB (PACERONE) PO SCH (08:22)
[2017-04-01] MEDS: metOLazone 2.5 MG TAB PO SCH (08:22)
[2017-04-01] MEDS: NYSTATIN 100,000 UNITS/GM TOPICAL PWD 15 GM TOP SCH ×2 (08:23→20:16)
[2017-04-01] MEDS: FUROSEMIDE 100 MG/10 ML VIAL (J1940) IV SCH ×2 (08:23→17:00)
[2017-04-01] MEDS ORDERED: FUROSEMIDE 100 MG/10 ML VIAL (J1940) IV SCH (09:00)
[2017-04-01] MEDS: CEFTAROLINE FOSAMIL 400 MG in APPROPRIATE DILUENT 1 EA IV SCH ×2 (11:05→22:01)
[2017-04-01 12:00] VITALS: BP 109/60
[2017-04-01 16:00] VITALS: BP 111/59
[2017-04-01] MEDS: FUROSEMIDE injection 250 MG in D5W 225 ML IV SCH (18:41)
[2017-04-01] MEDS: NORCO, ANEXSIA 5/325MG TABLET (HYDROcodone/ACETAMINOPHEN) PO PRN (18:42)
[2017-04-01 20:00] VITALS: BP 112/63
[2017-04-01] MEDS: ATORVASTATIN 20 MG TAB PO SCH (20:21)
[2017-04-02] VITALS (8 sets, daily range): BP systolic 99–112; BP diastolic 54–59; O2SAT 90
[2017-04-02 05:06] LABS: MEAN CORPUSCULAR HEMOGLOBIN 30.5 pg (27.0-33.0); MEAN CORPUSCULAR HGB CONC 30.7 g/dl (32.0-36.5); MEAN CORPUSCULAR VOLUME 99.3 fl (80.0-96.0); PLATELET COUNT, AUTOMATED 223 10^3/uL (150-450); RED CELL DISTRIBUTION WIDTH 15.9 % (11.5-14.5); WHITE BLOOD COUNT 13.4 10^3/uL (4.0-10.0)
[2017-04-02] MEDS: NORCO, ANEXSIA 5/325MG TABLET (HYDROcodone/ACETAMINOPHEN) PO PRN ×2 (05:12→20:42)
[2017-04-02] MEDS: SLF 3 ML SYR IV SCH ×3 (05:12→22:19)
[2017-04-02 05:21] LABS: CALCIUM LEVEL 8.4 MG/DL (8.8-10.2); CREATININE FOR GFR 1.47 MG/DL (0.55-1.02); GLOMERULAR FILTRATION RATE 37.7 (>45); MAGNESIUM LEVEL 1.9 MG/DL (1.8-2.4); POTASSIUM SERUM 3.4 MEQ/L (3.5-5.1)
[2017-04-02] MEDS ORDERED: MAG SULF 1GM/100ML (MAG RUN) 1 GM in APPROPRIATE DILUENT 1 EA IV ONE (06:45)
[2017-04-02] MEDS ORDERED: POTASSIUM CHLORIDE 10 MEQ SR TABLET PO ONE ×2 (06:45→09:00)
--- NOTE | 2017-04-02 07:43 | IPNPDOC ---
Date Seen The patient was seen on 04/02/17. Progress Note SUBJECTIVE:Patient is seen and examined at the bedside. chart has been reviewed. She still complains of shortness of breath and slept upright due to severe orthopnea. Despite almost 6 liters diuresis since admission, she has not seen any significant clinical improvement. LE continues to have 3+ pitting edema despite lasix iv gtt. 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 She also c/o right LE venous ulcers that are weeping as well as generalized pain from the fall requesting norco. Vitals reviewed General Exam: Positive: Alert, Cooperative, No Acute Distress Eye Exam: Positive: PERRLA, Conjunctiva & lids normal, EOMI ENT Exam: Positive: Atraumatic, Pharynx Normal, Tongue Midline, Other ENT ( poor dentition), Negative: Pharyngeal Edema Neck Exam: Positive: Supple, Negative: Lymphadenopathy Chest Exam: Positive: Rales (b/l lower lobes, diminished Heart Exam: Positive: Rate Normal, Irregular Rhythm, Other (distant heart sounds due to body habitus) Telemetry: Positive: Atrial fibrillation Abdomen Exam: Positive: Normal bowel sounds, Negative: Soft (tense from fluid, with dry skin no lower abdomen), Tenderness Extremity Exam: Positive: Edema (3+), Tenderness (mild tenderness to touch on right LE) Skin Exam: Positive: Lesion (right LE warm & erythematous, weeping clear fluid) Neuro Exam: Positive: Normal Speech, Strength at 5/5 X4 ext, Normal Tone, Sensation Intact Psych Exam: Positive: Mood NL, Oriented x 3 Laboratory data/imaging studies reviewed. 67-year-old female admitted with a reason for visit of CHF. 67 yo F presents to ED via EMS after she fell trying to sit down in chair and per pt, just had miscalculated where the chair was. PMH includes diastolic CHF, paroxysmal A. fib on Pradaxa, HLD, HTN, NIDDM 2, COPD 1L NC, CAD s/p stents x2. Denies presyncopal symptoms, lightheadedness, dizziness, LOC, or hitting her head. States she has been having difficulty ambulating and moving lately due to bilateral leg swelling, associated with shortness of breath, 20+ lb weight gain in past few weeks, orthopnea, paroxysmal nocturnal dyspnea. Pt also admits to not being compliant with meds lately, especially Torsemide and states "I don't take it like I should." Recently admitted to hospital early January 2017 for similar symptoms, acute CHF decompensation. Denies recent travel, changes in meds, sick contacts. Denies chest pain or pressure, lightheadedness, dizziness, n/v, abd pain. Noted in ED to have 3+ pitting edema, weeping fluid in lower legs, crackles in lungs. Given ASA, Lasix, and Duoneb in ED. Assessment/Plan Acute decompensated heart failure hx of diastolic HF. Presented with 20+ lb wt gain in past few weeks, dyspneic, orthopnea, PND. Cardiac markers neg. BNP elevated, cardiomegaly on CXR, crackles and 3+ pitting edema. defer to seasonal greenery bundler Dr. Osuna for diuresis, currently on lasix iv gtt. supplement k and mg as needed. Telemetry unremarkable strict I/Os, daily weights, low salt diet Right LE Cellulitis warm, erythematous, tender to touch, weeping clear fluid will start Teflaro Leukocytosis likely combination of: reactionary to acute CHF decompensation and RLE cellulitis start Teflaro urine, blood cultures pending Hyperbilirubinemia may be 2/2 volume overload status monitor and trend. May require ultrasound if continues to be elevated Paroxysmal A.Fib on Pradaxa rate controlled on home Metoprolol NIDDM2 hold home Metformin due to elevated Cr ISS inpatient. consistent carbs diet COPD no acute exacerbation on 1L NC all the time at home. Will continue continue home Ventolin HLD continue home med HTN continue home med GERD continue home med Right wrist pain s/p fall at home. Range of motion intact, and no motor/sensory changes. therefore, prn pain meds and physical therapy Right LE venous stasis ulcer: obtain wound care consult. Morbid obesity bmi 60.5 complicating acute issues Metabolic syndrome, chronic Deconditioning. will most likely require prolong hospital stay and potential rehab. PT-activity as tolerated VS, I&O, 24H, Fishbone Vital Signs/I&O Vital Signs Date Time Temp Pulse Resp B/P (MAP) Pulse Ox O2 Delivery O2 Flow Rate FiO2 04/02/17 06:00 22 04/02/17 05:12 Nasal Cannula 04/02/17 04:00 2.0 04/02/17 04:00 99.2 75 109/54 (72) 90 I&O- Last 24 Hours up to 6 AM 04/03/17 05:59 Intake Total 100 ml Output Total 425 ml Balance -325 ml Laboratory Data 24H LABS Laboratory Tests 2 04/01/17 11:02: Bedside Glucose (Misc Panel) 112 04/01/17 16:26: Bedside Glucose (Misc Panel) 147H 04/01/17 20:26: Bedside Glucose (Misc Panel) 124H 04/02/17 04:41: Nucleated Red Blood Cells % (auto) 0.0, Anion Gap 6L, Glomerular Filtration Rate 37.7L, Blood Urea Nitrogen 23H, Creatinine 1.47H, Sodium Level 138, Potassium Level 3.4L, Chloride Level 98, Carbon Dioxide Level 34H, Calcium Level 8.4L, Magnesium Level 1.9 CBC/BMP Laboratory Tests 04/02/17 04:41 Red Blood Count 4.13, Mean Corpuscular Volume 99.3 H, Mean Corpuscular Hemoglobin 30.5, Mean Corpuscular Hemoglobin Concent 30.7 L, Red Cell Distribution Width 15.9 H, Calcium Level 8.4 L Microbiology Microbiology 03/31/17 Blood Culture - Preliminary, Resulted No growth after 24 hours . All specim... 03/31/17 Blood Culture - Preliminary, Resulted No growth after 24 hours . All specim... 03/31/17 Urine Culture, Received Pending ANASTASIIA RUIZ MD Apr 02, 2017 06:53
[2017-04-02] MEDS: NYSTATIN 100,000 UNITS/GM TOPICAL PWD 15 GM TOP SCH ×2 (08:18→21:45)
[2017-04-02] MEDS: HumaLOG INSULIN (NovoLOG) PER UNIT SC SCH ×4 (08:19→20:38)
[2017-04-02] MEDS: FERROUS SULFATE 325MG TAB PO SCH (08:22)
[2017-04-02] MEDS: ASPIRIN 81 MG ENTERIC TAB PO SCH (08:22)
[2017-04-02] MEDS: metOLazone 2.5 MG TAB PO SCH (08:22)
[2017-04-02] MEDS: DABIGATRAN ETEXILATE 75 MG CAP (PRADAXA) PO SCH ×2 (08:22→20:39)
[2017-04-02] MEDS: AMIODARONE 200 MG TAB (PACERONE) PO SCH (08:23)
[2017-04-02] MEDS: METOPROLOL TART 12.5 MG PER 1/2 TAB PO SCH ×2 (08:25→20:39)
[2017-04-02] MEDS: SPIRONOLACTONE 25 MG TAB PO SCH (08:26)
[2017-04-02] MEDS: TIOTROPIUM INHALER/CAPSULE (SPIRIVA) INH SCH (08:28)
[2017-04-02] MEDS: LORATADINE 10 MG TAB PO PRN (08:55)
[2017-04-02] MEDS: CEFTAROLINE FOSAMIL 400 MG in APPROPRIATE DILUENT 1 EA IV SCH ×2 (11:47→22:19)
[2017-04-02] MEDS: FUROSEMIDE injection 250 MG in D5W 225 ML IV SCH (17:11)
[2017-04-02] MEDS: ATORVASTATIN 20 MG TAB PO SCH (20:39)
[2017-04-02] MEDS: DOCUSATE SODIUM 100 MG CAP PO PRN (20:42)
--- NOTE | 2017-04-03 05:18 | IPN ---
DATE: 04/02/2017 SUBJECTIVE: The patient is seen this morning at the bedside. She states she felt uncomfortable over the course of the night and continued to complain of some generalized pain and requesting pain medications. She states she is not comfortable in bed but rather much more comfortable when she is upright in a chair. She has not ambulated much thus far. OBJECTIVE: VITAL SIGNS: Temperature 98.8, pulse 72, respiratory rate 18-22, blood pressure 106/59, saturating 90% on two liters nasal cannula. INTAKE AND OUTPUT: Intake 1810, urine output 4315, net-negative 2540 the past 24 hours. Weight in the bed scale today 170 kg, decreased from prior. PHYSICAL EXAMINATION: GENERAL: The patient is seen in bed in no acute distress, morbidly obese. HEAD/NECK: Extraocular muscles are intact. There is a moist tongue. The neck is obese, difficult to assess veins. CARDIAC: S1, S2, irregularly irregular. 2+ radial pulse, 3+ pitting edema in the bilateral lower extremities up to the thigh and dependent area. LUNGS: Bibasilar rales. Superior lung reyes are clear. Air entry is distant. ABDOMEN: Soft, obese, large abdominal pannus with significant induration and edema. EXTREMITIES: 3+ pitting edema bilaterally that extends the thighs, groin and dependent areas. SKIN: There is weeping clear fluid from her right lower extremity and erythematous changes on the right calf. Genitourinary : garcia with urine NEUROLOGIC: She is at her baseline mentation, oriented times four. PSYCHIATRIC: Appropriate mood and affect. LABORATORY DATA: White count 13.4, hemoglobin 12.6, platelets 223. Sodium 138, potassium 3.4, bicarbonate 34, BUN 23, creatinine 1.4, magnesium 1.9, glucose 133. MICROBIOLOGY: Blood cultures 03/31 two sets: No growth for 48 hours. Urine culture 03/31: No growth. INPATIENT MEDICATIONS: The patient continues on Lasix about 5 mg an hour. She received a dose of intravenous (IV) magnesium this morning, along with 80 mEq of oral potassium. She is started on potassium 40 mEq by mouth daily. I have discontinue her metolazone. PROBLEMS: 1. Acute on chronic decompensated diastolic heart failure secondary to noncompliance with her chronic home diuretic regimen. The patient is significantly hypervolemic with pitting edema in the bilateral lower extremities up to the thigh and buttock, along with induration and edema in her abdominal pannus. On this point, I will continue her on Lasix drip with aldactone. She has responded well to diuretics with excellent urine output. She has had a mild decremental decrease in glomerular filtration rate (GFR) and concomitant metabolic alkalosis secondary to aggressive diuresis. I have discontinued her metolazone. I may intermittently give her Diamox both for sequential nephron blockade and also for correction of her alkalemia. We will continue with tailored diuretics for goal net-negative about two liters daily. 2. Acute kidney injury (SANTINO) on chronic kidney disease (CKD) III: Baseline creatinine is about 1.1 to 1.2, currently with a decremental decrease in GFR in the setting of aggressive diuresis. Continue diuretics with goal net-negative two liters daily. Avoid hypotension or borderline hypotension while we are aggressively diuresing the patient. I would like to keep her mean arterial pressure (MAP) at 70 at least. 3. Alkalosis secondary to aggressive diuresis: We will continue with Lasix at this time. Discontinue metolazone and will like give Diamox intermittently for sequential nephron blockade and correction of alkalemia. 4. Hypokalemia secondary to diuretics: The patient received 80 mEq of potassium today and started on a daily oral potassium supplementation. 5. Paroxysmal atrial fibrillation: The patient continues on metoprolol, amiodarone and Pradaxa. 6. Right lower extremity cellulitis: The patient continues on Teflaro per the primary team. 7. Morbid obesity complicating her care. ADELE
[2017-04-03 05:30] VITALS: BP 97/52
[2017-04-03 05:32] LABS: MEAN CORPUSCULAR HGB CONC 30.7 g/dl (32.0-36.5); MEAN CORPUSCULAR VOLUME 97.8 fl (80.0-96.0); PLATELET COUNT, AUTOMATED 191 10^3/uL (150-450); RED CELL DISTRIBUTION WIDTH 15.3 % (11.5-14.5); WHITE BLOOD COUNT 9.4 10^3/uL (4.0-10.0)
[2017-04-03] MEDS: SLF 3 ML SYR IV SCH ×3 (05:35→20:39)
[2017-04-03 05:48] LABS: CALCIUM LEVEL 8.9 MG/DL (8.8-10.2); CREATININE FOR GFR 1.21 MG/DL (0.55-1.02); GLOMERULAR FILTRATION RATE 47.2 (>45); MAGNESIUM LEVEL 1.8 MG/DL (1.8-2.4); POTASSIUM SERUM 3.1 MEQ/L (3.5-5.1)
--- NOTE | 2017-04-03 06:18 | CR ---
DATE OF CONSULTATION: 04/01/2017 REQUESTING PHYSICIAN: Dr. Lilly Medina REASON FOR CONSULTATION: Diuretic management for decompensated diastolic congestive heart failure. HISTORY OF PRESENT ILLNESS: The patient is a 67-year-old female with a past medical history of morbid obesity, diastolic congestive heart failure, obesity, hypoventilation syndrome, chronic pulmonary obstructive disease, coronary artery disease status post stent, mitral valve stenosis with prolapse, paroxysmal atrial fibrillation on Pradaxa, type 2 diabetes, hypertension, chronic kidney disease (CKD) stage III with baseline creatinine of about 1.1 to 1.2 and heparin induced thrombocytopenia. The patient has had recurrent hospitalizations for acute on chronic decompensated congestive heart failure and the patient is currently admitted for the same at present. She states that for the last several weeks she has become noncompliant with her oral diuretic regimen most especially her Torsemide. She states that she stopped taking it because it was "uncomfortable having to urinate all the time." She states that she has been having difficulty ambulating for the past several days due to significant lower extremity edema and shortness of breath. She also notes weeping from the right lower extremity, tenderness and erythema. She states she has gained about 40 pounds since the last time she was discharged from the hospital in January. She is currently at her baseline renal function and nephrology is called for management of diuretics. PAST MEDICAL HISTORY: 1. Diastolic congestive heart failure with recurrent decompensation. 2. Paroxysmal atrial fibrillation on Pradaxa. 3. CKD stage III with baseline creatinine of about 1.1 to 1.2. 4. Hypertension. 5. Diabetes. 6. Chronic pulmonary obstructive disease (COPD). 7.Coronary artery disease status post stent. 8. Obesity. 9. Hypoventilation syndrome. 10. Morbid obesity. 11. Heparin induced thrombocytopenia. 12. Pulmonary hypertension. ALLERGIES: HEPARIN and SULFA drugs. SOCIAL HISTORY: The patient has a 35-pack year history, quit smoking about 20 years ago. She denies alcohol or drugs. She lives alone. PAST SURGICAL HISTORY: 1. Cardiac stents. 2. Hernia repair times two. 3. Colon resection in 2009. FAMILY HISTORY: Negative for end-stage renal disease. REVIEW OF SYSTEMS: In general negative for fevers and chills. Head/Neck: Negative for visual changes, blurriness, or dysphagia. Cardiac: Negative for chest pain. Positive for peripheral edema and occasional palpitations. Respiratory: Positive for shortness of breath and date of examination. Negative for hemoptysis. Gastrointestinal (GI): Negative for nausea or vomiting. Genitourinary: Negative for hematuria or dysuria. Musculoskeletal: Positive for difficulty with ambulation and negative for arthralgias, myalgias. Skin: Positive for cellulitic changes of the right lower extremity and weeping from the right lower extremity. Endocrine: Positive for diabetes. Heme/Onc: Positive for retirement anticoagulant use, negative for easy bruising or bleeding. Neurologic: Negative for syncope or headache. Psychiatric: Negative for depression or suicidal ideation. The remainder of the review of systems is negative, as per history of present illness (HPI) of negative. HOME MEDICATIONS: - albuterol two puffs inhaled as needed - hydrocodone acetaminophen one tablet by mouth three times a day taken as needed - amiodarone 200 mg by mouth daily - aspirin 81 mg by mouth daily - atorvastatin 40 mg by mouth nightly - Pradaxa 150 mg by mouth twice a day - ferrous sulfate 325 mg by mouth daily - Breo Ellipta one puff inhaled daily - loratadine 10 mg by mouth daily as needed - metformin 500 mg by mouth twice a day - metolazone 2.5 mg Sunday, Sunday and Sunday - metoprolol 12.5 mg by mouth twice a day - potassium 20 mEq by mouth twice a day - aldactone 25 mg by mouth twice a day - Spiriva one inhalation daily - Torsemide 20 mg by mouth twice a day, the patient was noncompliant with Torsemide PHYSICAL EXAMINATION: Vital signs: Temperature 97.2, pulse 81, respiratory rate 18, blood pressure 111/59, saturating 96% on 2 liters nasal cannula. Intake and output: Oral intake reported at 300 mL, urine output yesterday reported as 1825, negative 1525, weight is not recorded in the bed scale today. General: The patient was seen sitting upright in bed, morbidly obese, comfortable, in no acute respiratory distress. HEENT: Extraocular muscles intact, oral mucosa is moist. Neck: Obese and it is difficult to assess the neck veins. Cardiac : S1, S2, irregularly, irregular. Distant heart sounds. 2+ radial pulse. There is 3+ pitting edema present in the bilateral lower extremities that extends up to the thigh and dependent areas. Respiratory: There are bibasilar rales. The patient is comfortable on 2 liters nasal cannula, speaking in full sentences, no accessory muscle use. Abdomen: Soft, obese. There is significant pannus and there is induration and pitting edema present in the abdominal pannus. Extremities: The lower extremities have 3+ edema bilaterally. There is weeping from the right lower extremity and the right lower extremity is tender to touch and erythematous. Skin: Right lower extremity with mild erythema and weeping clear fluid. Neurologic: She is at her baseline mentation, no focal deficits. Psychiatric: Appropriate mood and affect. LABORATORY DATA: White count 10.8, hemoglobin 11.7, platelets 174. Sodium 140, potassium 3.3, bicarbonate 30, BUN 21, creatinine 1.2, calcium 8.3, magnesium 1.9. Microbiology: Blood cultures on 03/31: No growth for 24 hours. IMAGING: Chest x-ray on 03/31 reveals chronic interstitial changes, enlarged cardiac silhouette. INPATIENT MEDICATIONS: - ceftaroline 400 mg intravenous (IV) every 12 - acetaminophen 500 mg by mouth as needed - [place] one tablet by mouth every 6 hours as needed - Proventil two puffs inhaled every 4 hours as needed - amiodarone 200 mg by mouth daily - aspirin 81 mg by mouth daily - atorvastatin 40 mg by mouth nightly - Pradaxa 150 mg by mouth twice a day - Colace 100 mg by mouth daily as needed - ferrous sulfate 325 mg by mouth daily - insulin - Claritin 10 mg by mouth daily as needed - metolazone 2.5 mg by mouth daily - metoprolol 12.5 mg by mouth twice a day - nystatin powder to abdominal area topical twice a day - aldactone 25 mg by mouth daily - Spiriva one inhalation inhaled daily PROBLEM LIST: This is a 65-year-old female with a past medical history of diastolic congestive heart failure, paroxysmal atrial fibrillation on Pradaxa, hypertension, diabetes, morbid obesity, hypoventilation syndrome, chronic pulmonary obstructive disease (COPD), coronary artery disease (CAD), chronic kidney disease (CKD) stage III with recurrent hospitalizations for decompensated diastolic heart failure who is now admitted with volume overload and decompensated diastolic congestive heart failure secondary to noncompliance with her outpatient chronic oral diuretic regimen. 1. Acute on chronic decompensated diastolic heart failure secondary to noncompliance with her chronic outpatient diuretic regimen. The patient is currently on Lasix 80 mg intravenous (IV) twice a day and she is due for a dose at 5 p.m. After she receives a bolus of Lasix 80 mg IV I will start her on a Lasix drip at 5 mg per hour and discontinue the Lasix bolus. We will otherwise continue her on metolazone 2.5 mg by mouth daily and aldactone 25 mg by mouth daily for sequential nephron blockade to target daily negative balance of about 2 liters. The patient as well will continue with fluid restriction 1500 mL daily and she states that she was compliant with the same as an outpatient. 2. CKD stage III. Creatinine is currently at her known baseline. We will watch her renal function as we aggressively diurese the patient and replete electrolytes aggressively while she is being diuresed. 3. Paroxysmal atrial fibrillation. The patient continues on Pradaxa for anticoagulation and is rate controlled on metoprolol. She is as well on amiodarone. Will aim to keep magnesium greater than 2 and potassium greater than 4. Right lower extremity cellulitic changes. The patient is on antimicrobials as per the primary team. 5. Anemia. Hemoglobin 11.7. The patient continues on ferrous sulfate. No other intervention at this time. 6. Diabetes. The patient's home metformin is held at present and she continues on insulin while an inpatient. 7. Morbid obesity complicating her care. Body mass index (BMI) greater than 60. 8. History of obesity, hypoventilation syndrome and chronic pulmonary obstructive disease (COPD). The patient continues on her home inhalers and at present is on 2 liters nasal cannula. 9. Hypertension. Blood pressure is at goal at this time and no change in her medications is being made. Thank you for involving me in the care of this patient. I will be happy to follow the patient along with you. cc: MD ADELE Foster
[2017-04-03] MEDS ORDERED: POTASSIUM CHLORIDE 10 MEQ SR TABLET PO ONE ×2 (06:45→20:00)
[2017-04-03 08:00] VITALS: BP 107/64
[2017-04-03] MEDS: AMIODARONE 200 MG TAB (PACERONE) PO SCH (08:09)
[2017-04-03] MEDS: DABIGATRAN ETEXILATE 75 MG CAP (PRADAXA) PO SCH ×2 (08:09→20:37)
[2017-04-03] MEDS: FERROUS SULFATE 325MG TAB PO SCH (08:09)
[2017-04-03] MEDS: SPIRONOLACTONE 25 MG TAB PO SCH (08:09)
[2017-04-03] MEDS: ASPIRIN 81 MG ENTERIC TAB PO SCH (08:09)
[2017-04-03] MEDS: NYSTATIN 100,000 UNITS/GM TOPICAL PWD 15 GM TOP SCH ×2 (08:10→20:39)
[2017-04-03] MEDS: METOPROLOL TART 12.5 MG PER 1/2 TAB PO SCH ×2 (08:12→20:38)
[2017-04-03] MEDS: DOCUSATE SODIUM 100 MG CAP PO PRN (08:14)
[2017-04-03] MEDS: HumaLOG INSULIN (NovoLOG) PER UNIT SC SCH ×4 (08:17→20:38)
[2017-04-03] MEDS: NORCO, ANEXSIA 5/325MG TABLET (HYDROcodone/ACETAMINOPHEN) PO PRN ×2 (08:21→20:37)
[2017-04-03] MEDS: TIOTROPIUM INHALER/CAPSULE (SPIRIVA) INH SCH (08:40)
[2017-04-03] MEDS ORDERED: AcetaZOLAMIDE 500MG INJECTION (J1120) IV SCH (09:00)
[2017-04-03] MEDS: CEFTAROLINE FOSAMIL 400 MG in APPROPRIATE DILUENT 1 EA IV SCH ×2 (10:53→23:37)
[2017-04-03] MEDS: POTASSIUM CHLORIDE 10 MEQ SR TABLET PO SCH (10:53)
--- NOTE | 2017-04-03 14:27 | IPNPDOC ---
Text Note Date of Service The patient was seen on 04/03/17. NOTE SUBJECTIVE: Patient is seen and examined at the bedside. chart has been reviewed. Says her SOB is slowly improving. PHYSICAL EXAM: Vitals : As Below General Exam: Positive: Alert, Cooperative, No Acute Distress Eye Exam: Positive: PERRLA, Conjunctiva & lids normal, EOMI ENT Exam: Positive: Atraumatic, Pharynx Normal, Tongue Midline, Other ENT ( poor dentition), Negative: Pharyngeal Edema Neck Exam: Positive: Supple, Negative: Lymphadenopathy Chest Exam: Positive: Rales (b/l lower lobes, diminished Heart Exam: Positive: Rate Normal, Irregular Rhythm, Other (distant heart sounds due to body habitus) Telemetry: Positive: Atrial fibrillation Abdomen Exam: Positive: Normal bowel sounds, Negative: Soft (tense from fluid, with dry skin no lower abdomen), Tenderness Extremity Exam: Positive: Edema (3+), Tenderness (mild tenderness to touch on right LE) Skin Exam: Positive: Lesion (right LE warm & erythematous, weeping clear fluid) Neuro Exam: Positive: Normal Speech, Strength at 5/5 X4 ext, Normal Tone, Sensation Intact Psych Exam: Positive: Mood NL, Oriented x 3 Laboratory data/imaging studies reviewed. ASSESSMENT: 67-year-old female admitted with a reason for visit of CHF. 67 yo F presents to ED via EMS after she fell trying to sit down in chair and per pt, just had miscalculated where the chair was. PMH includes diastolic CHF, paroxysmal A. fib on Pradaxa, HLD, HTN, NIDDM 2, COPD 1L NC, CAD s/p stents x2. Denies presyncopal symptoms, lightheadedness, dizziness, LOC, or hitting her head. States she has been having difficulty ambulating and moving lately due to bilateral leg swelling, associated with shortness of breath, 20+ lb weight gain in past few weeks, orthopnea, paroxysmal nocturnal dyspnea. Pt also admits to not being compliant with meds lately, especially Torsemide and states "I don't take it like I should." Recently admitted to hospital early January 2017 for similar symptoms, acute CHF decompensation. Denies recent travel, changes in meds, sick contacts. Denies chest pain or pressure, lightheadedness, dizziness, n/v, abd pain. Noted in ED to have 3+ pitting edema, weeping fluid in lower legs, crackles in lungs. Given ASA, Lasix, and Duoneb in ED. PLAN: Acute decompensated diastolic heart failure currently on lasix iv gtt, diamox and amiloride. supplement k and mg as needed. Telemetry NSVT asymptomatic . will transfer to med-surg. strict I/Os, daily weights, low salt diet, fluid restriction. SANTINO on CKD stage 3: due to cardiorenal syndrome improving with diuresis. Bicarb increasing . Will get ABG. Diuretics have been changed. Right LE Cellulitis: continue teflaro. Leukocytosis: likely combination of reactionary to acute CHF decompensation and RLE cellulitis Hyperbilirubinemia may be 2/2 volume overload status and hepatic congestion Paroxysmal A.Fib on Pradaxa, amiodarone and Metoprolol NIDDM2 hold home Metformin due to elevated Cr ISS inpatient. consistent carbs diet COPD: no acute exacerbation on 1L NC all the time at home. Will continue continue home Ventolin Chronic respiratory failure with hypoxia: will continue oxygen by nasal canula Pulmonary Hypertension: continue diuresis and oxygen CAD with h/o stent: stable at this point. HLD continue home med HTN continue home med GERD continue home med Right wrist pain s/p fall at home. Range of motion intact, and no motor/sensory changes. therefore, prn pain meds and physical therapy Right LE venous stasis ulcer: obtain wound care consult. Morbid obesity bmi 60.5 complicating acute issues Obesity hypoventilation/ JANE: Had abnormal nocturnal pulse oximetry before. Never had a sleep study. continue on oxygen History of HIT: No heparin or lovenox. DVT prophylaxis with TEDS and SCD. Deconditioning. will most likely require prolong hospital stay and potential rehab. PT-activity as tolerated VS,Fishbone, I+O VS, Fishbone, I+O Laboratory Tests 04/03/17 05:21 Red Blood Count 4.10, Mean Corpuscular Volume 97.8 H, Mean Corpuscular Hemoglobin 30.0, Mean Corpuscular Hemoglobin Concent 30.7 L, Red Cell Distribution Width 15.3 H, Calcium Level 8.9 Vital Signs Date Time Temp Pulse Resp B/P (MAP) Pulse Ox O2 Delivery O2 Flow Rate FiO2 04/03/17 08:51 18 Nasal Cannula 3.0 04/03/17 08:12 83 107/64 04/03/17 08:00 97.6 89 I&O- Last 24 Hours up to 6 AM 04/04/17 06:00 Intake Total 180 ml Balance 180 ml ROMEO LUNDBERG MD Apr 03, 2017 14:26
[2017-04-03] MEDS: LORATADINE 10 MG TAB PO PRN (15:08)
[2017-04-03 15:23] LABS: ABG BASE EXCESS 11.8 (-2.0-2.0); ABG HCO3 38.4 MEQ/L (22.0-26.0); ABG PARTIAL PRESSURE CO2 58.3 mmHg (35.0-45.0); ABG PARTIAL PRESSURE O2 63.5 mmHg (75.0-100.0); ABG STANDARD HCO3 35.5 MEQ/L (22.0-26.0); ABG TOTAL CO2 40.2 MEQ/L (23.0-31.0); ABG pH (ARTERIAL) 7.437 UNITS (7.350-7.450)
[2017-04-03 16:35] VITALS: BP 105/58
[2017-04-03] MEDS: FUROSEMIDE injection 250 MG in D5W 225 ML IV SCH (17:47)
[2017-04-03 18:43] LABS: CALCIUM LEVEL 9.1 MG/DL (8.8-10.2); CREATININE FOR GFR 1.36 MG/DL (0.55-1.02); GLOMERULAR FILTRATION RATE 41.3 (>45); POTASSIUM SERUM 3.5 MEQ/L (3.5-5.1)
[2017-04-03 20:00] VITALS: BP 105/55
[2017-04-03] MEDS: ATORVASTATIN 20 MG TAB PO SCH (20:38)
--- NOTE | 2017-04-03 21:34 | IPN ---
DATE: 04/03/2017 SUBJECTIVE: The patient is seen this morning out of bed to the chair. Reports that she is not comfortable in the bed at all and is able to respire more comfortably sitting upright in the chair. Has not been able to ambulate. Continues to complain of pain and tenderness and weeping in the lower extremity. VITAL SIGNS: Temperature 97.6, pulse 79, respiratory rate 14-17, blood pressure 107/64, saturating 89-91% on 2 liters nasal cannula. Intake and output: Urine output yesterday 5375, oral intake 1040, net negative 4.3 liters. She is not weighed today. GENERAL: The patient is seen sitting out of bed to the chair. She is not in any acute distress. She is eating breakfast and is conversational. Extraocular muscles are intact. The dentition is poor. The tongue is moist. There is a nasal cannula in place. CARDIAC: S1, S2, distant. Irregularly irregular. CHEST: Diminished breath sounds at the bilateral bases. Distant but symmetric air entry. No tachypnea. No use of accessory muscles. ABDOMEN: Soft, obese. Significant pannus with edema and induration. The lower extremities are propped up on the recliner chair and have tender pitting edema and weeping, clear fluid from the right lower extremity. GENITOURINARY: There is a Osorio catheter with brisk urine output. NEUROLOGIC: There is no focal deficit. PSYCHIATRIC: Appropriate mood and affect. LABORATORY DATA: White count is 9.4, hemoglobin 12.3, platelets 191. Sodium 138, potassium 3.1, bicarbonate 40, BUN 25, creatinine 1.2, glucose 113, calcium 8.9, magnesium 1.8. Microbiology: Blood cultures March 31 with no growth for 72 hours. Urine culture March 31 with no growth. INPATIENT MEDICATIONS: Patient continues on Lasix drip at 5 mg an hour, and I have started her on Diamox 250 mg intravenous (IV) daily and amiloride 5 mg by mouth daily. I have discontinued her spironolactone. She has received 80 mEq of potassium supplementation. Remainder of medications are unchanged from prior. PROBLEMS: 1. Acute on chronic decompensated heart failure secondary to noncompliance with her chronic home diuretic regimen. The patient is responding well to diuretics with brisk urine output. She has developed a significant metabolic alkalosis due to concurrent use of both loop and thiazide diuretic. In view of this, I will continue her on Lasix drip but will switch her daily Diamox for bicarbonaturesis , and we will also discontinue spironolactone in favor of amiloride due to its effect of causing metabolic acidosis. She should hopefully continue to diurese well with sequential nephron paralysis with use of Lasix, Diamox, and amiloride. I hope that her alkalemia also improves with his regimen. 2. Alkalemia. Change diuretics to Diamox and amiloride as mentioned above. Continue with Lasix. 3. Hypokalemia secondary to aggressive diuretics and concomitant alkalosis. The patient received 80 mEq of potassium supplementation. I will repeat a chemistry at 6 p.m. tonight to monitor both her bicarbonate and her potassium. 4. Paroxysmal atrial fibrillation. The patient continues on metoprolol, amiodarone, and Pradaxa. 5. Right lower extremity cellulitis. The patient continues on Teflaro per the primary team. 6. Morbid obesity, complicating her care along with obesity hypoventilation syndrome. Plan of care is discussed with Dr. Ju Scott. ADELE
[2017-04-03] MEDS: AcetaZOLAMIDE 500MG INJECTION (J1120) IV SCH (23:37)
[2017-04-04] MEDS: AcetaZOLAMIDE 500MG INJECTION (J1120) IV SCH ×4 (05:49→23:11)
[2017-04-04] MEDS: SLF 3 ML SYR IV SCH ×3 (05:50→22:27)
[2017-04-04 05:57] LABS: MEAN CORPUSCULAR HEMOGLOBIN 30.5 pg (27.0-33.0); MEAN CORPUSCULAR HGB CONC 30.7 g/dl (32.0-36.5); MEAN CORPUSCULAR VOLUME 99.2 fl (80.0-96.0); PLATELET COUNT, AUTOMATED 215 10^3/uL (150-450); RED CELL DISTRIBUTION WIDTH 15.2 % (11.5-14.5); WHITE BLOOD COUNT 7.9 10^3/uL (4.0-10.0)
[2017-04-04 06:17] LABS: CALCIUM LEVEL 8.9 MG/DL (8.8-10.2); CREATININE FOR GFR 1.25 MG/DL (0.55-1.02); GLOMERULAR FILTRATION RATE 45.5 (>45); POTASSIUM SERUM 3.5 MEQ/L (3.5-5.1)
[2017-04-04] MEDS: HumaLOG INSULIN (NovoLOG) PER UNIT SC SCH ×4 (07:30→20:20)
[2017-04-04] MEDS: TIOTROPIUM INHALER/CAPSULE (SPIRIVA) INH SCH (07:35)
[2017-04-04 08:00] VITALS: BP 94/55
[2017-04-04] MEDS: POTASSIUM CHLORIDE 10 MEQ SR TABLET PO SCH (09:42)
[2017-04-04] MEDS: METOPROLOL TART 12.5 MG PER 1/2 TAB PO SCH ×3 (09:43→22:41)
[2017-04-04] MEDS: aMILoride 5 MG TAB PO SCH (09:44)
[2017-04-04] MEDS: ASPIRIN 81 MG ENTERIC TAB PO SCH (09:44)
[2017-04-04] MEDS: DABIGATRAN ETEXILATE 75 MG CAP (PRADAXA) PO SCH ×2 (09:44→20:21)
[2017-04-04] MEDS: AMIODARONE 200 MG TAB (PACERONE) PO SCH (09:44)
[2017-04-04] MEDS: NYSTATIN 100,000 UNITS/GM TOPICAL PWD 15 GM TOP SCH ×2 (09:44→20:22)
[2017-04-04] MEDS: FERROUS SULFATE 325MG TAB PO SCH (09:44)
[2017-04-04] MEDS: NORCO, ANEXSIA 5/325MG TABLET (HYDROcodone/ACETAMINOPHEN) PO PRN ×2 (10:11→20:21)
[2017-04-04] MEDS: LORATADINE 10 MG TAB PO PRN (10:11)
[2017-04-04] MEDS: DOCUSATE SODIUM 100 MG CAP PO PRN (10:11)
[2017-04-04] MEDS: CEFTAROLINE FOSAMIL 400 MG in APPROPRIATE DILUENT 1 EA IV SCH ×2 (11:38→22:27)
--- NOTE | 2017-04-04 12:01 | IPNPDOC ---
Text Note Date of Service The patient was seen on 04/04/17. NOTE SUBJECTIVE: Patient is seen and examined at the bedside. chart has been reviewed. Says her SOB is slowly improving. Still sleeping in recliner. No fever or chills, no chest pain , cough improved, no nausea or vomiting or diarrhea. PHYSICAL EXAM: Vitals : As Below General Exam: Positive: Alert, Cooperative, No Acute Distress Eye Exam: Positive: PERRLA, Conjunctiva & lids normal, EOMI ENT Exam: Positive: Atraumatic, Pharynx Normal, Tongue Midline, Other ENT ( poor dentition), Negative: Pharyngeal Edema Neck Exam: Positive: Supple, Negative: Lymphadenopathy Chest Exam: Positive: Rales (b/l lower lobes, diminished Heart Exam: Positive: Rate Normal, Irregular Rhythm, Other (distant heart sounds due to body habitus) Telemetry: Positive: Atrial fibrillation Abdomen Exam: Positive: Normal bowel sounds, Negative: Soft (tense from fluid, with dry skin no lower abdomen), Tenderness Extremity Exam: Positive: Edema (3+), Tenderness (mild tenderness to touch on right LE) Skin Exam: Positive: Lesion (right LE warm & erythematous, weeping clear fluid) Neuro Exam: Positive: Normal Speech, Strength at 5/5 X4 ext, Normal Tone, Sensation Intact Psych Exam: Positive: Mood NL, Oriented x 3 Laboratory data/imaging studies reviewed. ASSESSMENT: 67-year-old female admitted with a reason for visit of CHF. 67 yo F presents to ED via EMS after she fell trying to sit down in chair and per pt, just had miscalculated where the chair was. PMH includes diastolic CHF, paroxysmal A. fib on Pradaxa, HLD, HTN, NIDDM 2, COPD 1L NC, CAD s/p stents x2. Denies presyncopal symptoms, lightheadedness, dizziness, LOC, or hitting her head. States she has been having difficulty ambulating and moving lately due to bilateral leg swelling, associated with shortness of breath, 20+ lb weight gain in past few weeks, orthopnea, paroxysmal nocturnal dyspnea. Pt also admits to not being compliant with meds lately, especially Torsemide and states "I don't take it like I should." Recently admitted to hospital early January 2017 for similar symptoms, acute CHF decompensation. Denies recent travel, changes in meds, sick contacts. Denies chest pain or pressure, lightheadedness, dizziness, n/v, abd pain. Noted in ED to have 3+ pitting edema, weeping fluid in lower legs, crackles in lungs. Given ASA, Lasix, and Duoneb in ED. PLAN: Acute decompensated diastolic heart failure currently on diamox and amiloride. supplement k and mg as needed. strict I/Os, daily weights, low salt diet, fluid restriction. SANTINO on CKD stage 3: due to cardiorenal syndrome improving with diuresis. Bicarb increasing . Will get ABG. Diuretics have been changed. Right LE Cellulitis: continue teflaro. Leukocytosis: likely combination of reactionary to acute CHF decompensation and RLE cellulitis Hyperbilirubinemia may be 2/2 volume overload status and hepatic congestion Paroxysmal A.Fib on Pradaxa, amiodarone and Metoprolol NIDDM2 hold home Metformin due to elevated Cr ISS inpatient. consistent carbs diet COPD: no acute exacerbation on 1L NC all the time at home. Will continue continue home Ventolin Chronic respiratory failure with hypoxia: will continue oxygen by nasal canula Pulmonary Hypertension: continue diuresis and oxygen CAD with h/o stent: stable at this point. HLD continue home med HTN continue home med GERD continue home med Right wrist pain s/p fall at home. Range of motion intact, and no motor/sensory changes. therefore, prn pain meds and physical therapy Right LE venous stasis ulcer: obtain wound care consult. Morbid obesity bmi 60.5 complicating acute issues Obesity hypoventilation/ JANE: Had abnormal nocturnal pulse oximetry before. Never had a sleep study. continue on oxygen History of HIT: No heparin or lovenox. DVT prophylaxis with TEDS and SCD. Deconditioning. will most likely require prolong hospital stay and potential rehab. PT-activity as tolerated VS,Fishbone, I+O VS, Fishbone, I+O Laboratory Tests 04/03/17 18:10 Calcium Level 9.1 04/04/17 05:36 Calcium Level 8.9, Red Blood Count 3.94 L, Mean Corpuscular Volume 99.2 H, Mean Corpuscular Hemoglobin 30.5, Mean Corpuscular Hemoglobin Concent 30.7 L, Red Cell Distribution Width 15.2 H Vital Signs Date Time Temp Pulse Resp B/P (MAP) Pulse Ox O2 Delivery O2 Flow Rate FiO2 04/04/17 11:10 16 04/04/17 09:43 69 94/55 04/04/17 08:00 97.8 90 Nasal Cannula 2.0 I&O- Last 24 Hours up to 6 AM 04/05/17 06:00 Intake Total 0 ml Output Total 0 ml Balance 0 ml ROMEO LUNDBERG MD Apr 04, 2017 12:01
[2017-04-04 16:00] VITALS: BP 102/60
[2017-04-04] MEDS ORDERED: aMILoride 5 MG TAB PO ONE (17:45)
--- NOTE | 2017-04-04 18:08 | IPN ---
DATE: 04/04/2017 SUBJECTIVE: The patient is seen this morning at the bedside. She reports she continues to sleep in the chair, as she feels uncomfortable in the bed. She denies any other acute complaint. She remains with Osorio catheter. VITAL SIGNS: Temperature 97.8, pulse 69, respiratory rate 18, blood pressure systolic 94-105, diastolic 55-58, saturating 90-98% on 2 liters nasal cannula. Intake and output: Oral intake yesterday recorded as 420, urine output 2900, net negative 2440. Weight in the bed scale is not recorded today. GENERAL: The patient is seen in the recliner in no acute distress, morbidly obese. Extraocular muscles are intact. Oral mucosa is moist. Nasal cannula is in place. NECK: Supple. The neck veins are difficult to assess secondary to increased neck circumference. CARDIAC: S1, S2, distant heart sounds. Radial pulse 2+. There is 3+ pitting edema present in the bilateral extremities up to the thigh and dependent area. LUNGS: There are diminished breath sounds at the base. There is no tachypnea. No use of accessory muscles. Her pulse is irregular. The abdomen is soft, obese with significant pannus with induration and edema and dry skin. EXTREMITIES: pitting edema bilaterally in lower ext GENITOURINARY: There is a Osorio catheter with urine. NEUROLOGIC: She is at her baseline mentation. PSYCHIATRIC: Appropriate mood and affect. LABORATORY DATA: White count 7.9, hemoglobin 12. Sodium 138, potassium 3.5, bicarbonate 42, BUN 28, creatinine 1.2, magnesium 2.0. The pH 7.43 with pCO2 of 58. INPATIENT MEDICATIONS: The patient's Lasix drip is discontinued. She is on Diamox 250 IV every 6 and amiloride 5 mg by mouth daily. Her remainder of medications are unchanged from prior. PROBLEMS: 1. Acute on chronic decompensated diastolic heart failure secondary to noncompliance with home diuretic regimen. The patient has developed a significant metabolic alkalosis due to concurrent use of both loop and thiazide diuretic. Her serum bicarbonate is in excess of 40. Of note, she does have a chronic metabolic alkalosis and chronic respiratory acidosis. Her baseline bicarbonate is usually in the low 30s. Will hold Lasix drip at present for 24 hours and continue her on Diamox around the clock with amiloride. Once her alkalemia has improved, we will resume Lasix. 2. Hypokalemia secondary to aggressive diuretics and concomitant alkalosis. The patient continues on aggressive potassium supplementation. 3. Alkalemia. Patient has a chronic respiratory acidosis and a chronic metabolic alkalosis. At present serum bicarbonate in excess of 40. Lasix is on hold for 24 hours. Continue with Diamox and amiloride as mentioned above. 4. Chronic kidney disease (CKD), stage II. Renal function is at baseline. 5. Paroxysmal atrial fibrillation. The patient continues on metoprolol, amiodarone, and Pradaxa. 6. Morbid obesity, complicating her care along with obesity hypoventilation, obstructive sleep apnea (JANE), and history of chronic obstructive pulmonary disease (COPD). ADELE
[2017-04-04 20:00] VITALS: BP 100/53
[2017-04-04] MEDS: ATORVASTATIN 20 MG TAB PO SCH (20:21)
[2017-04-04 22:36] VITALS: BP 109/51
[2017-04-05 04:00] VITALS: BP 110/58
[2017-04-05] MEDS: AcetaZOLAMIDE 500MG INJECTION (J1120) IV SCH ×3 (05:14→17:56)
[2017-04-05] MEDS: SLF 3 ML SYR IV SCH ×3 (05:15→21:26)
[2017-04-05 05:53] LABS: MEAN CORPUSCULAR HEMOGLOBIN 30.3 pg (27.0-33.0); MEAN CORPUSCULAR HGB CONC 30.1 g/dl (32.0-36.5); MEAN CORPUSCULAR VOLUME 100.8 fl (80.0-96.0); PLATELET COUNT, AUTOMATED 215 10^3/uL (150-450); RED CELL DISTRIBUTION WIDTH 15.2 % (11.5-14.5); WHITE BLOOD COUNT 7.9 10^3/uL (4.0-10.0)
[2017-04-05 06:09] LABS: CALCIUM LEVEL 8.8 MG/DL (8.8-10.2); CREATININE FOR GFR 1.38 MG/DL (0.55-1.02); GLOMERULAR FILTRATION RATE 40.6 (>45); MAGNESIUM LEVEL 2.2 MG/DL (1.8-2.4); POTASSIUM SERUM 3.8 MEQ/L (3.5-5.1)
[2017-04-05] MEDS: TIOTROPIUM INHALER/CAPSULE (SPIRIVA) INH SCH (07:20)
[2017-04-05 08:15] VITALS: BP 92/54; O2SAT 92
[2017-04-05] MEDS: NYSTATIN 100,000 UNITS/GM TOPICAL PWD 15 GM TOP SCH ×2 (09:00→21:00)
[2017-04-05] MEDS: FERROUS SULFATE 325MG TAB PO SCH (09:09)
[2017-04-05] MEDS: DABIGATRAN ETEXILATE 75 MG CAP (PRADAXA) PO SCH ×2 (09:09→21:23)
[2017-04-05] MEDS: NORCO, ANEXSIA 5/325MG TABLET (HYDROcodone/ACETAMINOPHEN) PO PRN (09:09)
[2017-04-05] MEDS: ASPIRIN 81 MG ENTERIC TAB PO SCH (09:10)
[2017-04-05] MEDS: POTASSIUM CHLORIDE 10 MEQ SR TABLET PO SCH (09:10)
[2017-04-05] MEDS: AMIODARONE 200 MG TAB (PACERONE) PO SCH (09:10)
[2017-04-05] MEDS: aMILoride 5 MG TAB PO SCH (09:10)
[2017-04-05] MEDS: LORATADINE 10 MG TAB PO PRN (09:10)
[2017-04-05] MEDS: DOCUSATE SODIUM 100 MG CAP PO PRN (09:10)
[2017-04-05] MEDS: FUROSEMIDE 100 MG/10 ML VIAL (J1940) IV SCH ×2 (09:11→17:56)
[2017-04-05] MEDS: METOPROLOL TART 12.5 MG PER 1/2 TAB PO SCH ×2 (09:11→21:24)
[2017-04-05] MEDS: HumaLOG INSULIN (NovoLOG) PER UNIT SC SCH ×4 (09:12→21:00)
[2017-04-05] MEDS: CEFTAROLINE FOSAMIL 400 MG in APPROPRIATE DILUENT 1 EA IV SCH ×2 (11:35→22:37)
--- NOTE | 2017-04-05 12:49 | IPNPDOC ---
Text Note Date of Service The patient was seen on 04/05/17. NOTE SUBJECTIVE: Patient is seen and examined at the bedside. chart has been reviewed. Says her SOB is slowly improving. Able to now sleep in bed. right leg still red with seepage. Hematuria noted in the garcia seems to be traumatic. No fever or chills, no chest pain , cough improved, no nausea or vomiting or diarrhea. PHYSICAL EXAM: Vitals : As Below General Exam: Positive: Alert, Cooperative, No Acute Distress Eye Exam: Positive: PERRLA, Conjunctiva & lids normal, EOMI ENT Exam: Positive: Atraumatic, Pharynx Normal, Tongue Midline, Other ENT ( poor dentition), Negative: Pharyngeal Edema Neck Exam: Positive: Supple, Negative: Lymphadenopathy Chest Exam: Positive: Rales (b/l lower lobes, diminished Heart Exam: Positive: Rate Normal, Irregular Rhythm, Other (distant heart sounds due to body habitus) Telemetry: Positive: Atrial fibrillation Abdomen Exam: Positive: Normal bowel sounds, Negative: Soft (tense from fluid, with dry skin no lower abdomen), Tenderness Extremity Exam: Positive: Edema (3+), Tenderness (mild tenderness to touch on right LE) Skin Exam: Positive: Lesion (right LE warm & erythematous, weeping clear fluid) Neuro Exam: Positive: Normal Speech, Strength at 5/5 X4 ext, Normal Tone, Sensation Intact Psych Exam: Positive: Mood NL, Oriented x 3 Laboratory data/imaging studies reviewed. ASSESSMENT: 67-year-old female admitted with a reason for visit of CHF. 67 yo F presents to ED via EMS after she fell trying to sit down in chair and per pt, just had miscalculated where the chair was. PMH includes diastolic CHF, paroxysmal A. fib on Pradaxa, HLD, HTN, NIDDM 2, COPD 1L NC, CAD s/p stents x2. Denies presyncopal symptoms, lightheadedness, dizziness, LOC, or hitting her head. States she has been having difficulty ambulating and moving lately due to bilateral leg swelling, associated with shortness of breath, 20+ lb weight gain in past few weeks, orthopnea, paroxysmal nocturnal dyspnea. Pt also admits to not being compliant with meds lately, especially Torsemide and states "I don't take it like I should." Recently admitted to hospital early January 2017 for similar symptoms, acute CHF decompensation. Denies recent travel, changes in meds, sick contacts. Denies chest pain or pressure, lightheadedness, dizziness, n/v, abd pain. Noted in ED to have 3+ pitting edema, weeping fluid in lower legs, crackles in lungs. Given ASA, Lasix, and Duoneb in ED. PLAN: Acute decompensated diastolic heart failure currently on diamox and amiloride and lasix. supplement k and mg as needed. strict I/Os, daily weights, low salt diet, fluid restriction. SANTINO on CKD stage 3: due to cardiorenal syndrome improving with diuresis. Bicarb increasing . Will get ABG. Diuretics have been changed. Right LE Cellulitis: continue teflaro. Leukocytosis: likely combination of reactionary to acute CHF decompensation and RLE cellulitis Hyperbilirubinemia may be 2/2 volume overload status and hepatic congestion Paroxysmal A.Fib on Pradaxa, amiodarone and Metoprolol NIDDM2 hold home Metformin due to elevated Cr ISS inpatient. consistent carbs diet COPD: no acute exacerbation on 1L NC all the time at home. Will continue continue home Ventolin Chronic respiratory failure with hypoxia: will continue oxygen by nasal canula Pulmonary Hypertension: continue diuresis and oxygen CAD with h/o stent: stable at this point. HLD continue home med HTN continue home med GERD continue home med Right wrist pain s/p fall at home. Range of motion intact, and no motor/sensory changes. therefore, prn pain meds and physical therapy Right LE venous stasis ulcer: obtain wound care consult. Morbid obesity bmi 60.5 complicating acute issues Obesity hypoventilation/ JNAE: Had abnormal nocturnal pulse oximetry before. Never had a sleep study. continue on oxygen History of HIT: No heparin or lovenox. DVT prophylaxis with TEDS and SCD. Deconditioning. will most likely require prolong hospital stay and potential rehab. PT-activity as tolerated VS,Fishbone, I+O VS, Fishbone, I+O Laboratory Tests 04/05/17 05:34 Red Blood Count 3.93 L, Mean Corpuscular Volume 100.8 H, Mean Corpuscular Hemoglobin 30.3, Mean Corpuscular Hemoglobin Concent 30.1 L, Red Cell Distribution Width 15.2 H, Calcium Level 8.8 Vital Signs Date Time Temp Pulse Resp B/P (MAP) Pulse Ox O2 Delivery O2 Flow Rate FiO2 04/05/17 09:39 18 04/05/17 09:11 96 110/58 04/05/17 08:15 92 Nasal Cannula 1.0 04/05/17 04:00 97.6 ROMEO LUNDBERG MD Apr 05, 2017 12:49
[2017-04-05 14:00] VITALS: BP 96/54
--- NOTE | 2017-04-05 16:06 | IPN ---
DATE: 04/05/2017 SUBJECTIVE: The patient is seen this morning at the bedside. She reports that she moved from recliner to bed, as her breathing has improved and also she was getting significantly tender buttocks from sitting in the recliner. She denies any other acute complaints. She remains with Osorio catheter, which has blood tinged urine at present. VITAL SIGNS: Temperature 97.6, pulse 67 to 96, respiratory rate 17 to 24, blood pressure 110/58, saturating 91 to 92% on nasal cannula 1 liter. Intake and output: Oral intake yesterday 720 mL, urine output 1400 mL, net negative 640. Weight in the bed scale today is 163.9 kg. GENERAL: The patient is seen lying in bed, lateral but recumbent. In no acute distress. Morbidly obese. Extraocular muscles are intact. Nasal cannula is in place. Tongue is moist. Oral dentition is poor. Difficult to assess her neck veins. CARDIAC: S1, S2. Heart sounds are irregular. Radial pulse is palpable. There is significant pitting edema present in the bilateral upper extremities to the thigh. LUNGS: Breath sounds are distant and symmetric. There is no tachypnea. No use of accessory muscles. ABDOMEN: Soft, obese with significant pannus with induration and edema and dry skin. GENITOURINARY: There is a Osorio catheter in place with blood tinged urine. NEUROLOGIC: She is at her baseline mentation. PSYCHIATRIC: Appropriate mood and affect. LABORATORY DATA: White count 7.9, hemoglobin 11.9, platelets 216, sodium 138, potassium 3.8, bicarbonate improved to 35, BUN 26, creatinine 1.3, glucose 137. INPATIENT MEDICATIONS: The patient just started on Lasix 60 mg IV twice a day. She continues on Diamox 250 mg intravenously every 6 hours and amiloride 5 mg by mouth daily. There is no significant change in her medications. PROBLEMS: 1. Acute on chronic decompensated diastolic heart failure secondary to noncompliance with home diuretic regimen. The patient's alkalemia has improved with holding Lasix for 24 hours. I have resumed Lasix 60 mg IV twice a day and we will continue her on Diamox around the clock with oral amiloride. She did not have a significant diuresis the past 24 hours while her Lasix was held, as is expected. 2. Chronic kidney disease stage III. The patient's renal function has had some minor fluctuations with diuretic use, but is fairly stable at present. We will continue to diurese with goal net negative of about 2 liters per day. Her overall weight seems to be down about 10 kg with cumulative negative fluid balance of about 11 liters. She still has significantly more edema and will require further IV diuresis. 3. Blood tinged urine noted in Osorio catheter, likely from trauma. The patient is currently on Pradaxa. Hemoglobin has been stable at present. Would monitor for now. 4. Paroxysmal atrial fibrillation. The patient continues on metoprolol, amiodarone, and Pradaxa. 5. Right lower extremity cellulitis. The patient continues on Teflaro per the primary team. 6. Alkalemia, improved from prior. The patient does have a chronic underlying respiratory acidosis with metabolic compensation. Lasix is resumed at present in conjunction with Diamox and amiloride, as mentioned above, for further diuresis. 7. Morbid obesity, complicating her care along with obesity hypoventilation syndrome and history of chronic obstructive pulmonary disease (COPD). Plan of care is discussed with Dr. Ju Scott. ADELE
[2017-04-05] MEDS: ATORVASTATIN 20 MG TAB PO SCH (21:24)
[2017-04-05 22:00] VITALS: BP 139/59
[2017-04-06 06:00] VITALS: BP 123/60
[2017-04-06] MEDS: SLF 3 ML SYR IV SCH ×3 (06:00→21:39)
[2017-04-06 06:38] LABS: MEAN CORPUSCULAR HEMOGLOBIN 30.4 pg (27.0-33.0); MEAN CORPUSCULAR HGB CONC 30.8 g/dl (32.0-36.5); MEAN CORPUSCULAR VOLUME 98.7 fl (80.0-96.0); PLATELET COUNT, AUTOMATED 210 10^3/uL (150-450); RED CELL DISTRIBUTION WIDTH 15.2 % (11.5-14.5)
[2017-04-06 06:55] LABS: CALCIUM LEVEL 8.8 MG/DL (8.8-10.2); CREATININE FOR GFR 1.31 MG/DL (0.55-1.02); GLOMERULAR FILTRATION RATE 43.1 (>45); MAGNESIUM LEVEL 2.4 MG/DL (1.8-2.4); POTASSIUM SERUM 3.9 MEQ/L (3.5-5.1)
[2017-04-06] MEDS: TIOTROPIUM INHALER/CAPSULE (SPIRIVA) INH SCH (08:30)
[2017-04-06] MEDS: METOPROLOL TART 12.5 MG PER 1/2 TAB PO SCH ×2 (09:00→21:37)
[2017-04-06] MEDS: HumaLOG INSULIN (NovoLOG) PER UNIT SC SCH ×4 (09:22→21:00)
[2017-04-06] MEDS: FUROSEMIDE 100 MG/10 ML VIAL (J1940) IV SCH ×2 (09:23→17:53)
[2017-04-06] MEDS: DABIGATRAN ETEXILATE 75 MG CAP (PRADAXA) PO SCH ×2 (09:26→21:37)
[2017-04-06] MEDS: ASPIRIN 81 MG ENTERIC TAB PO SCH (09:26)
[2017-04-06] MEDS: AcetaZOLAMIDE 250 MG TAB PO SCH ×4 (09:27→21:37)
[2017-04-06] MEDS: AMIODARONE 200 MG TAB (PACERONE) PO SCH (09:27)
[2017-04-06] MEDS: FERROUS SULFATE 325MG TAB PO SCH (09:27)
[2017-04-06] MEDS: POTASSIUM CHLORIDE 10 MEQ SR TABLET PO SCH (09:27)
[2017-04-06] MEDS: aMILoride 5 MG TAB PO SCH (09:27)
[2017-04-06] MEDS: NYSTATIN 100,000 UNITS/GM TOPICAL PWD 15 GM TOP SCH ×2 (09:29→21:38)
[2017-04-06] MEDS: NORCO, ANEXSIA 5/325MG TABLET (HYDROcodone/ACETAMINOPHEN) PO PRN ×2 (10:46→21:36)
--- NOTE | 2017-04-06 11:34 | IPNPDOC ---
Text Note Date of Service The patient was seen on 04/06/17. NOTE SUBJECTIVE: Patient is seen and examined at the bedside. chart has been reviewed. Says her SOB is slowly improving. Able to now sleep in bed. right leg still red with seepage. Hematuria noted in the garcia seems to be traumatic. No fever or chills, no chest pain , cough improved, no nausea or vomiting or diarrhea. PHYSICAL EXAM: Vitals : As Below General Exam: Positive: Alert, Cooperative, No Acute Distress Eye Exam: Positive: PERRLA, Conjunctiva & lids normal, EOMI ENT Exam: Positive: Atraumatic, Pharynx Normal, Tongue Midline, Other ENT ( poor dentition), Negative: Pharyngeal Edema Neck Exam: Positive: Supple, Negative: Lymphadenopathy Chest Exam: Positive: Rales (b/l lower lobes, diminished Heart Exam: Positive: Rate Normal, Irregular Rhythm, Other (distant heart sounds due to body habitus) Telemetry: Positive: Atrial fibrillation Abdomen Exam: Positive: Normal bowel sounds, Negative: Soft (tense from fluid, with dry skin no lower abdomen), Tenderness Extremity Exam: Positive: Edema (3+), Tenderness (mild tenderness to touch on right LE) Skin Exam: Positive: Lesion (right LE warm & erythematous, weeping clear fluid) Neuro Exam: Positive: Normal Speech, Strength at 5/5 X4 ext, Normal Tone, Sensation Intact Psych Exam: Positive: Mood NL, Oriented x 3 Laboratory data/imaging studies reviewed. ASSESSMENT: 67-year-old female admitted with a reason for visit of CHF. 67 yo F presents to ED via EMS after she fell trying to sit down in chair and per pt, just had miscalculated where the chair was. PMH includes diastolic CHF, paroxysmal A. fib on Pradaxa, HLD, HTN, NIDDM 2, COPD 1L NC, CAD s/p stents x2. Noted in ED to have 3+ pitting edema, weeping fluid in lower legs, crackles in lungs. Given ASA, Lasix, and Duoneb in ED and admitted for CHF exacerbation. PLAN: Acute decompensated diastolic heart failure currently on diamox and amiloride and lasix. supplement k and mg as needed. strict I/Os, daily weights, low salt diet, fluid restriction. SANTINO on CKD stage 3: due to cardiorenal syndrome improving with diuresis. Bicarb increasing . Will get ABG. Diuretics have been changed. Right LE Cellulitis: finished teflaro course. Leukocytosis: likely combination of reactionary to acute CHF decompensation and RLE cellulitis Hyperbilirubinemia may be 2/2 volume overload status and hepatic congestion Paroxysmal A.Fib on Pradaxa, amiodarone and Metoprolol Hematuria: due to trauma to garcia . HH stable will continue with Pradaxa. NIDDM2 hold home Metformin due to elevated Cr ISS inpatient. consistent carbs diet COPD: no acute exacerbation on 1L NC all the time at home. Will continue continue home Ventolin Chronic respiratory failure with hypoxia: will continue oxygen by nasal canula Pulmonary Hypertension: continue diuresis and oxygen CAD with h/o stent: stable at this point. HLD continue home med HTN continue home med GERD continue home med Right wrist pain s/p fall at home. Range of motion intact, and no motor/sensory changes. therefore, prn pain meds and physical therapy Right LE venous stasis ulcer: continue wound care. Morbid obesity bmi 60.5 complicating acute issues Obesity hypoventilation/ JANE: Had abnormal nocturnal pulse oximetry before. Never had a sleep study. continue on oxygen History of HIT: No heparin or lovenox. DVT prophylaxis with TEDS and SCD. Deconditioning. will most likely require prolong hospital stay and potential rehab. PT-activity as tolerated VS,Fishbone, I+O VS, Fishbone, I+O Laboratory Tests 04/06/17 06:31 Red Blood Count 3.91 L, Mean Corpuscular Volume 98.7 H, Mean Corpuscular Hemoglobin 30.4, Mean Corpuscular Hemoglobin Concent 30.8 L, Red Cell Distribution Width 15.2 H, Calcium Level 8.8 Vital Signs Date Time Temp Pulse Resp B/P (MAP) Pulse Ox O2 Delivery O2 Flow Rate FiO2 04/06/17 10:46 18 04/06/17 09:00 75 99/55 04/06/17 06:00 97.2 96 Nasal Cannula 1.0 I&O- Last 24 Hours up to 6 AM 04/07/17 06:00 Output Total 1350 ml Balance -1350 ml ROMEO LUNDBERG MD Apr 06, 2017 11:34
[2017-04-06 14:00] VITALS: BP 107/64
--- NOTE | 2017-04-06 17:10 | IPN ---
DATE: 04/06/2017 SUBJECTIVE: The patient is seen out of bed to chair. Reports that she was able to ambulate a few steps with physical therapy, which she was not able to do previously. She denies any acute complaints. No shortness of breath at rest. Remains with Osorio catheter. States that her bottom is sore from sitting in the chair. VITAL SIGNS: Temperature 97.2, pulse 57 to 75. Respiratory rate 19, blood pressure 123/67, saturating 96% on 1 liter nasal cannula. Oral intake yesterday is not recorded. Urine output is 3250. Weight in the bed scale today is 163 kg. GENERAL: The patient is seen out of bed to the chair comfortable in no acute distress. HEENT: Extraocular muscles are intact. The oral mucosa is moist with poor dentition. Nasal cannula is in place. The neck is obese. Difficult to assess the neck veins. CARDIAC: S1, S2, irregularly irregular. S2+ radial pulse. 3+ pitting edema in the lower extremities. The chest has diminished breath sounds at the bases. There is no tachypnea. She is comfortable on 1 liter nasal cannula. ABDOMEN: soft, obese, significant pannus with induration and edema and chronically dry skin. EXTREMITIES: Lower extremities have bilateral pitting edema 2 to 3+. NEUROLOGIC: She is at baseline mentation. PSYCHIATRIC: Appropriate mood and affect. LABORATORY DATA: White count 7. Hemoglobin 11.9, platelet 210. Sodium 138, potassium 3.9, bicarbonate 32, BUN 26, creatinine 1.3, magnesium 2.4. INPATIENT MEDICATIONS: The patient's Teflaro is discontinued per the primary team. She continues on amiloride 5 mg by mouth daily, Lasix 60 IV twice a day, and Diamox 250 by mouth four times a day. The remainder of medications are unchanged from prior. PROBLEMS: 1. Acute on chronic decompensated diastolic heart failure secondary to noncompliance with home diuretic regimen. The patient's alkalemia has improved. I am not making any changes to her diuretic regimen today. She continues on a combination of Lasix, amiloride and Diamox for goal net negative 2 liter balance daily. 2. Chronic kidney disease stage III. The patient's renal function is fairly stable with diuresis and is close to baseline. Overall weight seems to be down about 10 kg. She still has significant remaining edema and hypervolemia on exam and will require further IV diuresis. 3. Paroxysmal atrial fibrillation. The patient continues on metoprolol, amiodarone and Pradaxa. 4. Mild hypermagnesemia with magnesium 2.4. She is not on any magnesium supplements. 5. Morbid obesity, complicating her care along with chronic obstructive pulmonary disease and obesity hypoventilation syndrome 6. Deconditioning. The patient continues with physical therapy. ADELE
[2017-04-06] MEDS: DOCUSATE SODIUM 100 MG CAP PO PRN (21:35)
[2017-04-06] MEDS: ATORVASTATIN 20 MG TAB PO SCH (21:37)
[2017-04-06 22:00] VITALS: BP 157/76
[2017-04-07 06:00] VITALS: BP 101/58
[2017-04-07] MEDS: SLF 3 ML SYR IV SCH ×3 (06:11→21:10)
[2017-04-07 06:24] LABS: MEAN CORPUSCULAR HEMOGLOBIN 30.6 pg (27.0-33.0); MEAN CORPUSCULAR HGB CONC 30.7 g/dl (32.0-36.5); MEAN CORPUSCULAR VOLUME 99.5 fl (80.0-96.0); RED CELL DISTRIBUTION WIDTH 15.2 % (11.5-14.5); WHITE BLOOD COUNT 6.8 10^3/uL (4.0-10.0)
[2017-04-07 06:25] LABS: PLATELET COUNT, AUTOMATED 213 10^3/uL (150-450)
[2017-04-07 06:41] LABS: CALCIUM LEVEL 9.1 MG/DL (8.8-10.2); CREATININE FOR GFR 1.36 MG/DL (0.55-1.02); GLOMERULAR FILTRATION RATE 41.3 (>45); MAGNESIUM LEVEL 2.4 MG/DL (1.8-2.4); POTASSIUM SERUM 3.9 MEQ/L (3.5-5.1)
[2017-04-07] MEDS: TIOTROPIUM INHALER/CAPSULE (SPIRIVA) INH SCH (08:11)
[2017-04-07] MEDS: MIRALAX *UNIT DOSE* 17GM PACKET PO SCH (08:27)
[2017-04-07] MEDS: POTASSIUM CHLORIDE 10 MEQ SR TABLET PO SCH (08:28)
[2017-04-07] MEDS: DABIGATRAN ETEXILATE 75 MG CAP (PRADAXA) PO SCH ×2 (08:28→21:02)
[2017-04-07] MEDS: ASPIRIN 81 MG ENTERIC TAB PO SCH (08:29)
[2017-04-07] MEDS: AcetaZOLAMIDE 250 MG TAB PO SCH ×4 (08:29→21:03)
[2017-04-07] MEDS: SENOKOT S TAB PO SCH ×2 (08:29→21:02)
[2017-04-07] MEDS: FERROUS SULFATE 325MG TAB PO SCH (08:29)
[2017-04-07] MEDS: AMIODARONE 200 MG TAB (PACERONE) PO SCH (08:29)
[2017-04-07] MEDS: METOPROLOL TART 12.5 MG PER 1/2 TAB PO SCH ×2 (08:30→21:03)
[2017-04-07] MEDS: aMILoride 5 MG TAB PO SCH (08:30)
[2017-04-07] MEDS: HumaLOG INSULIN (NovoLOG) PER UNIT SC SCH ×4 (08:30→21:00)
[2017-04-07] MEDS: NYSTATIN 100,000 UNITS/GM TOPICAL PWD 15 GM TOP SCH ×2 (08:31→21:05)
[2017-04-07] MEDS: FUROSEMIDE 100 MG/10 ML VIAL (J1940) IV SCH ×2 (08:31→17:51)
[2017-04-07] MEDS: BISACODYL 10 MG SUPP PR SCH (09:00)
--- NOTE | 2017-04-07 09:07 | IPNPDOC ---
Text Note Date of Service The patient was seen on 04/07/17. NOTE SUBJECTIVE: Patient is seen and examined at the bedside. chart has been reviewed. Says her SOB is slowly improving. Able to now sleep in bed. right leg still with seepage. Hematuria has cleared. No fever or chills, no chest pain , cough improved, no nausea or vomiting or diarrhea. Complains that has not had a bowel movement for the past 8 days. PHYSICAL EXAM: Vitals : As Below General Exam: Positive: Alert, Cooperative, No Acute Distress Eye Exam: Positive: PERRLA, Conjunctiva & lids normal, EOMI ENT Exam: Positive: Atraumatic, Pharynx Normal, Tongue Midline, Other ENT ( poor dentition), Negative: Pharyngeal Edema Neck Exam: Positive: Supple, Negative: Lymphadenopathy Chest Exam: Positive: Rales (b/l lower lobes, diminished Heart Exam: Positive: Rate Normal, Irregular Rhythm, Other (distant heart sounds due to body habitus) Telemetry: Positive: Atrial fibrillation Abdomen Exam: Positive: Normal bowel sounds, Negative: Soft (tense from fluid, with dry skin no lower abdomen), Tenderness Extremity Exam: Positive: Edema (3+), Tenderness (mild tenderness to touch on right LE) Skin Exam: Positive: Lesion (right LE warm & erythematous, weeping clear fluid) Neuro Exam: Positive: Normal Speech, Strength at 5/5 X4 ext, Normal Tone, Sensation Intact Psych Exam: Positive: Mood NL, Oriented x 3 Laboratory data/imaging studies reviewed. ASSESSMENT: 67-year-old female admitted with a reason for visit of CHF. 67 yo F presents to ED via EMS after she fell trying to sit down in chair and per pt, just had miscalculated where the chair was. PMH includes diastolic CHF, paroxysmal A. fib on Pradaxa, HLD, HTN, NIDDM 2, COPD 1L NC, CAD s/p stents x2. Noted in ED to have 3+ pitting edema, weeping fluid in lower legs, crackles in lungs. Given ASA, Lasix, and Duoneb in ED and admitted for CHF exacerbation. PLAN: Acute decompensated diastolic heart failure currently on diamox and amiloride and lasix. supplement k and mg as needed. strict I/Os, daily weights, low salt diet, fluid restriction. SANTINO on CKD stage 3: due to cardiorenal syndrome improving with diuresis. Alkalosis resolved. Right LE Cellulitis: finished teflaro course. Leukocytosis: likely combination of reactionary to acute CHF decompensation and RLE cellulitis Hyperbilirubinemia resolved. may be 2/2 volume overload status and hepatic congestion Paroxysmal A.Fib on Pradaxa, amiodarone and Metoprolol Hematuria: due to trauma to garcia . HH stable will continue with Pradaxa. NIDDM2 hold home Metformin due to elevated Cr ISS inpatient. consistent carbs diet COPD: no acute exacerbation on 1L NC all the time at home. Will continue continue home Ventolin Chronic respiratory failure with hypoxia: will continue oxygen by nasal canula Pulmonary Hypertension: continue diuresis and oxygen CAD with h/o stent: stable at this point. HLD continue home med HTN continue home med GERD continue home med Right wrist pain s/p fall at home. Range of motion intact, and no motor/sensory changes. therefore, prn pain meds and physical therapy Right LE venous stasis ulcer: continue wound care. Morbid obesity bmi 60.5 complicating acute issues Obesity hypoventilation/ JANE: Had abnormal nocturnal pulse oximetry before. Never had a sleep study. continue on oxygen History of HIT: No heparin or lovenox. DVT prophylaxis with TEDS and SCD. Deconditioning. will most likely require prolong hospital stay and potential rehab. PT-activity as tolerated VS,Fishbone, I+O VS, Fishbone, I+O Laboratory Tests 04/07/17 06:08 Red Blood Count 3.76 L, Mean Corpuscular Volume 99.5 H, Mean Corpuscular Hemoglobin 30.6, Mean Corpuscular Hemoglobin Concent 30.7 L, Red Cell Distribution Width 15.2 H, Calcium Level 9.1 Vital Signs Date Time Temp Pulse Resp B/P (MAP) Pulse Ox O2 Delivery O2 Flow Rate FiO2 04/07/17 08:30 67 113/57 04/07/17 06:00 97.0 18 94 Nasal Cannula 1.0 ROMEO LUNDBERG MD Apr 07, 2017 09:07
[2017-04-07] MEDS ORDERED: aMILoride 5 MG TAB PO ONE (09:30)
[2017-04-07] MEDS: NORCO, ANEXSIA 5/325MG TABLET (HYDROcodone/ACETAMINOPHEN) PO PRN ×2 (10:18→21:04)
[2017-04-07 14:00] VITALS: BP 90/55
[2017-04-07] MEDS: ATORVASTATIN 20 MG TAB PO SCH (21:02)
[2017-04-07 22:00] VITALS: BP 100/51
[2017-04-08 06:00] VITALS: BP 108/57
[2017-04-08] MEDS: SLF 3 ML SYR IV SCH ×3 (06:00→21:13)
[2017-04-08] MEDS: TIOTROPIUM INHALER/CAPSULE (SPIRIVA) INH SCH (08:14)
--- NOTE | 2017-04-08 08:21 | IPN ---
DATE OF SERVICE: 04/07/2017 SUBJECTIVE: The patient was seen and examined at the bedside today morning. She was laying in the bed. She did not have any active complaints. She has an indwelling Osorio catheter. She continues to make good amount of urine. She is hemodynamically stable. Renal function is also close to baseline. REVIEW OF SYSTEMS: The patient denies any fever, chills, rigors. She denies any chest pain, shortness of breath. She denies any pain abdomen, constipation. She does report persistent abdominal wall edema, and she reports that lower extremity edema is improved now. The rest of review of systems is negative. OBJECTIVE: Temperature is 97 degrees Fahrenheit, blood pressure is 101/58, pulse is 70, respiratory rate of 18, saturating 94% on nasal cannula at 2 liters. INTAKE AND OUTPUT: Urine output recorded yesterday 3.6 liters. Urine output so far today since overnight is 1.7 liters. Weight in the bed scale is 156 kg, which is not reliable because it is 7 kg below yesterday's weight. PHYSICAL EXAMINATION: GENERAL: The patient is awake, alert, oriented times three, laying in bed, in no apparent distress. HEAD AND NECK EXAMINATION: Extraocular muscles intact. Pupils equally round and reactive to light. Mucous membranes are moist. Neck is supple. I could not appreciate jugular venous distention (JVD) because the patient is very obese. CARDIOVASCULAR: S1, S2, irregularly irregular heart rate. She has 2+ edema of the bilateral lower extremities. She has abdominal wall edema, as well. RESPIRATORY: Chest is clear to auscultation bilaterally. Bilateral equal air entry. No rales or rhonchi. ABDOMEN: Soft. Obese. Positive massive abdominal wall edema. I could not appreciate any organomegaly. MUSCULOSKELETAL: No clubbing or cyanosis, but she has 2+ pitting edema on the bilateral lower extremities CENTRAL NERVOUS SYSTEM (HORSE IDENTIFIER): No focal neurological deficit. Power is 5/5 in bilateral upper extremities. PSYCHIATRIC: Normal mood and affect. LABORATORY REVIEW: CBC showed a WBC of 6.8, hemoglobin 11.5, platelets are 213. BMP showed sodium 140, potassium 3.9, chloride 99, bicarbonate 36, BUN at 30, creatinine is 1.36 which is stable, calcium 9.1, magnesium 2.4. CURRENT INPATIENT MEDICATIONS: The patient's medications were all reviewed by me. She continues to be on acetazolamide 250 mg by mouth four times a day. Her amiloride dose has been increased to 10 mg by mouth daily. Potassium chloride dose has been decreased to 20 mEq by mouth daily. She continues to be on Lasix 60 mg intravenous (IV) twice a day. There is no other change in the medications today as compared with yesterday. ASSESSMENT: A 67-year-old female with past medical history of chronic kidney disease stage III, diastolic congestive heart failure, paroxysmal atrial fibrillation (AFib), and morbid obesity, admitted this time because of decompensated diastolic congestive heart failure secondary to noncompliance with her diuretics. PLAN: 1. Decompensated diastolic congestive heart failure. The patient continues to be on IV and oral diuretics. She is responding very well to diuretics. She is almost 2 liters negative every day. I will continue the current dose of Lasix. Amiloride dose has been increased because the patient is still requiring potassium supplementation. Continue the Osorio catheter at this time because it is very inconvenient for the patient to go multiple times to the restroom, and she is morbidly obese. 2. Chronic kidney disease stage III. The patient's renal function continues to be stable with the creatinine of 1.3. Okay to continue current dose of diuretics. 3. Paroxysmal atrial fibrillation. The patient's heart rate is controlled at this time. Continue current dose of metoprolol 12.5 mg by mouth bid, amiodarone 200 mg by mouth daily, and Pradaxa 150 mg by mouth twice a day. 4. Metabolic alkalosis, which is secondary to aggressive diuresis. Bicarbonate level is 36. She continues to be on acetazolamide and amiloride, both of which prevent acidosis. However, I am not going to cut down the dose of diuretic because the patient still has a lot of abdominal wall and lower extremity edema. 5. Morbid obesity and deconditioning. The patient lives alone. She is morbidly obese; and because of the lower extremity edema, she has been deconditioned. She is unable to walk. She needs physical therapy before discharge from the hospital.
[2017-04-08] MEDS: ASPIRIN 81 MG ENTERIC TAB PO SCH (08:54)
[2017-04-08] MEDS: FERROUS SULFATE 325MG TAB PO SCH (08:54)
[2017-04-08] MEDS: DABIGATRAN ETEXILATE 75 MG CAP (PRADAXA) PO SCH ×2 (08:54→21:09)
[2017-04-08] MEDS: AMIODARONE 200 MG TAB (PACERONE) PO SCH (08:54)
[2017-04-08] MEDS: SENOKOT S TAB PO SCH ×2 (08:54→21:09)
[2017-04-08] MEDS: POTASSIUM CHLORIDE 10 MEQ SR TABLET PO SCH (08:55)
[2017-04-08] MEDS: aMILoride 5 MG TAB PO SCH (08:55)
[2017-04-08] MEDS: MIRALAX *UNIT DOSE* 17GM PACKET PO SCH (08:55)
[2017-04-08] MEDS: FUROSEMIDE 100 MG/10 ML VIAL (J1940) IV SCH ×2 (08:56→17:10)
[2017-04-08] MEDS: METOPROLOL TART 12.5 MG PER 1/2 TAB PO SCH ×2 (08:56→21:00)
[2017-04-08] MEDS: NYSTATIN 100,000 UNITS/GM TOPICAL PWD 15 GM TOP SCH ×2 (08:56→21:11)
[2017-04-08] MEDS: BISACODYL 10 MG SUPP PR SCH (08:56)
[2017-04-08] MEDS: HumaLOG INSULIN (NovoLOG) PER UNIT SC SCH ×4 (08:58→21:00)
--- NOTE | 2017-04-08 10:23 | IPNPDOC ---
Text Note Date of Service The patient was seen on 04/08/17. NOTE SUBJECTIVE: Patient is seen and examined at the bedside. chart has been reviewed. SOB has improved. right leg still with seepage. Hematuria has cleared. No fever or chills, no chest pain , cough improved, no nausea or vomiting or diarrhea. Complains that has not had a bowel movement yet. PHYSICAL EXAM: Vitals : As Below General Exam: Positive: Alert, Cooperative, No Acute Distress Eye Exam: Positive: PERRLA, Conjunctiva & lids normal, EOMI ENT Exam: Positive: Atraumatic, Pharynx Normal, Tongue Midline, Other ENT ( poor dentition), Negative: Pharyngeal Edema Neck Exam: Positive: Supple, Negative: Lymphadenopathy Chest Exam: Positive: Rales (b/l lower lobes, diminished Heart Exam: Positive: Rate Normal, Irregular Rhythm, Other (distant heart sounds due to body habitus) Telemetry: Positive: Atrial fibrillation Abdomen Exam: Positive: Normal bowel sounds, Negative: Soft (tense from fluid, with dry skin no lower abdomen), Tenderness Extremity Exam: Positive: Edema (3+), Tenderness (mild tenderness to touch on right LE) Skin Exam: Positive: Lesion (right LE warm & erythematous, weeping clear fluid) Neuro Exam: Positive: Normal Speech, Strength at 5/5 X4 ext, Normal Tone, Sensation Intact Psych Exam: Positive: Mood NL, Oriented x 3 Laboratory data/imaging studies reviewed. ASSESSMENT: 67-year-old female admitted with a reason for visit of CHF. 67 yo F presents to ED via EMS after she fell trying to sit down in chair and per pt, just had miscalculated where the chair was. PMH includes diastolic CHF, paroxysmal A. fib on Pradaxa, HLD, HTN, NIDDM 2, COPD 1L NC, CAD s/p stents x2. Noted in ED to have 3+ pitting edema, weeping fluid in lower legs, crackles in lungs. Given ASA, Lasix, and Duoneb in ED and admitted for CHF exacerbation. PLAN: Acute decompensated diastolic heart failure currently on diamox and amiloride and lasix. supplement k and mg as needed. strict I/Os, daily weights, low salt diet, fluid restriction. SANTINO on CKD stage 3: due to cardiorenal syndrome improving with diuresis. Alkalosis resolved. Right LE Cellulitis: finished teflaro course. Leukocytosis: likely combination of reactionary to acute CHF decompensation and RLE cellulitis Hyperbilirubinemia resolved. may be 2/2 volume overload status and hepatic congestion Paroxysmal A.Fib on Pradaxa, amiodarone and Metoprolol Hematuria: due to trauma to garcia . HH stable will continue with Pradaxa. NIDDM2 hold home Metformin due to elevated Cr ISS inpatient. consistent carbs diet COPD: no acute exacerbation on 1L NC all the time at home. Will continue continue home Ventolin Chronic respiratory failure with hypoxia: will continue oxygen by nasal canula Pulmonary Hypertension: continue diuresis and oxygen CAD with h/o stent: stable at this point. HLD continue home med HTN continue home med GERD continue home med Right wrist pain s/p fall at home. Range of motion intact, and no motor/sensory changes. therefore, prn pain meds and physical therapy Right LE venous stasis ulcer: continue wound care. Morbid obesity bmi 60.5 complicating acute issues Obesity hypoventilation/ JANE: Had abnormal nocturnal pulse oximetry before. Never had a sleep study. continue on oxygen History of HIT: No heparin or lovenox. DVT prophylaxis with TEDS and SCD. Deconditioning. will most likely require prolong hospital stay and potential rehab. PT-activity as tolerated VS,Fishbone, I+O VS, Fishbone, I+O Vital Signs Date Time Temp Pulse Resp B/P (MAP) Pulse Ox O2 Delivery O2 Flow Rate FiO2 04/08/17 08:56 70 97/52 04/08/17 06:00 97.0 18 95 Nasal Cannula 2.0 ROMEO LUNDBERG MD Apr 08, 2017 10:23
[2017-04-08] MEDS: NORCO, ANEXSIA 5/325MG TABLET (HYDROcodone/ACETAMINOPHEN) PO PRN ×2 (12:18→21:12)
[2017-04-08 13:15] LABS: CALCIUM LEVEL 8.9 MG/DL (8.8-10.2); CREATININE FOR GFR 1.39 MG/DL (0.55-1.02); GLOMERULAR FILTRATION RATE 40.3 (>45); PHOSPHORUS LEVEL 3.5 MG/DL (2.5-4.9); POTASSIUM SERUM 3.6 MEQ/L (3.5-5.1)
[2017-04-08 14:00] VITALS: BP 96/52
[2017-04-08] MEDS: ATORVASTATIN 20 MG TAB PO SCH (21:09)
[2017-04-08 22:00] VITALS: BP 102/46
[2017-04-09] MEDS: SLF 3 ML SYR IV SCH ×3 (05:28→22:01)
[2017-04-09 06:00] VITALS: BP 113/62
[2017-04-09] MEDS: HumaLOG INSULIN (NovoLOG) PER UNIT SC SCH ×4 (07:07→20:52)
[2017-04-09] MEDS: TIOTROPIUM INHALER/CAPSULE (SPIRIVA) INH SCH (07:38)
[2017-04-09] MEDS: METOPROLOL TART 12.5 MG PER 1/2 TAB PO SCH ×2 (08:05→22:00)
[2017-04-09] MEDS: DABIGATRAN ETEXILATE 75 MG CAP (PRADAXA) PO SCH ×2 (08:23→22:00)
[2017-04-09] MEDS: AMIODARONE 200 MG TAB (PACERONE) PO SCH (08:23)
[2017-04-09] MEDS: SENOKOT S TAB PO SCH ×2 (08:23→22:00)
[2017-04-09] MEDS: FERROUS SULFATE 325MG TAB PO SCH (08:23)
[2017-04-09] MEDS: FUROSEMIDE 100 MG/10 ML VIAL (J1940) IV SCH ×2 (08:24→17:20)
[2017-04-09] MEDS: aMILoride 5 MG TAB PO SCH (08:24)
[2017-04-09] MEDS: ASPIRIN 81 MG ENTERIC TAB PO SCH (08:24)
[2017-04-09] MEDS: POTASSIUM CHLORIDE 10 MEQ SR TABLET PO SCH (08:24)
[2017-04-09] MEDS: MIRALAX *UNIT DOSE* 17GM PACKET PO SCH (08:24)
[2017-04-09] MEDS: NYSTATIN 100,000 UNITS/GM TOPICAL PWD 15 GM TOP SCH ×2 (08:25→22:01)
[2017-04-09] MEDS: BISACODYL 10 MG SUPP PR SCH (08:26)
--- NOTE | 2017-04-09 11:08 | IPN ---
DATE OF SERVICE: 04/08/2017 SUBJECTIVE: The patient was seen and examined at the bedside today morning. She was laying in the bed. She continues to diurese well. Patient is hemodynamically stable. Renal function also continues to be stable at this time and patient is gradually losing all the fluid weight. REVIEW OF SYSTEMS: The patient denies any fever, chills, rigors. She denies any chest pain, shortness of breath. She does report abdominal wall edema, which is improving, and she reports lower extremity edema and blisters are also improving. The rest of review of systems is negative. OBJECTIVE: Temperature is 97 degrees Fahrenheit, blood pressure is 108/57, pulse is 64, respiratory rate of 18, saturating 95% on nasal cannula at 2 liters. INTAKE AND OUTPUT: Urine output recorded as 3.7 liters yesterday, 1 liter so far today since overnight. Weight on the bed scale is 154.9 kg. PHYSICAL EXAMINATION: GENERAL: The patient is awake, alert, oriented times three, laying in bed, in no apparent distress. HEAD AND NECK EXAMINATION: Extraocular muscles intact. Pupils equally round and reactive to light. Mucous membranes are moist. Neck is supple. I could not appreciate jugular venous distention (JVD). CARDIOVASCULAR: S1, S2, irregularly irregular heart rate. She has 1+ edema of the bilateral lower extremities. Patient has abdominal wall edema as well. RESPIRATORY: Chest is clear to auscultation bilaterally. Bilateral equal air entry. No rales or rhonchi. ABDOMEN: Soft. Obese. Positive bowel sounds. Massive abdominal wall edema. I could not appreciate any organomegaly because of body habitus. MUSCULOSKELETAL: No clubbing or cyanosis. She 1+ of the bilateral lower extremities. The leg ulcers and blisters are healing now. CENTRAL NERVOUS SYSTEM (AUTOMATIC DOOR MECHANIC): No focal neurological deficit. Power is 5/5 in bilateral upper extremities. PSYCHIATRIC: Normal mood and affect. LABORATORY REVIEW: BMP done today morning showed sodium 139, potassium 3.6, chloride 98 bicarbonate 33 BUN at 34 creatinine is 1.39, calcium 8.9, phosphorous 3.5, albumin is 3. CURRENT INPATIENT MEDICATIONS: The patient's medications were all reviewed by me. Acetazolamide has been stopped now. Her amiloride dose was increased to 10 mg daily. She continues to be on Lasix 60 mg IV twice a day. There is no other change in the medications today as compared with yesterday. ASSESSMENT: 67-year-old female with past medical history of chronic kidney disease stage III, diastolic congestive heart failure, paroxysmal atrial fibrillation, and morbid obesity, admitted this time because of decompensated diastolic congestive heart failure secondary to noncompliance with her diuretics. PLAN: 1. Decompensated diastolic congestive heart failure. The patient continues to diurese well. She is almost 2 liters negative every day. Continue current dose of Lasix 60 mg twice a day. Continue amiloride 10 mg daily. If diuresis is inadequate then the Lasix dose would be increased. Patient was on Diamox for metabolic alkalosis. Diamox dose has been stopped. Bicarb level is acceptable. A further change in the diuretics would be done tomorrow after reviewing the labs. 2. Chronic kidney disease stage III. The patient's renal function continues to be stable despite aggressive diuresis. Baseline creatinine is around 1.3. 3. Paroxysmal atrial fibrillation. Heart rate is controlled at this time. Continue current dose of metoprolol 12.5 mg twice a day, amiodarone 200 mg daily, and Pradaxa 150 mg by mouth twice a day. 4. Metabolic alkalosis. Amiloride dose was increased to 10 mg daily. Acetazolamide has been stopped. Bicarb level is 33, which is acceptable at this time. 5. Morbid obesity and deconditioning. Whenever I see the patient she is laying in the bed and resting. She needs more physical therapy and I am going to have her Osorio catheter removed soon so she goes to the restroom and she does not keep on laying in the bed most of the time.
[2017-04-09 11:11] LABS: ALBUMIN 3.3 GM/DL (3.2-5.2); CALCIUM LEVEL 9.1 MG/DL (8.8-10.2); CREATININE FOR GFR 1.36 MG/DL (0.55-1.02); GLOMERULAR FILTRATION RATE 41.3 (>45); PHOSPHORUS LEVEL 2.8 MG/DL (2.5-4.9); POTASSIUM SERUM 3.7 MEQ/L (3.5-5.1)
[2017-04-09] MEDS: metOLazone 2.5 MG TAB PO SCH (11:43)
[2017-04-09] MEDS: LORATADINE 10 MG TAB PO PRN (11:43)
[2017-04-09] MEDS: NORCO, ANEXSIA 5/325MG TABLET (HYDROcodone/ACETAMINOPHEN) PO PRN ×2 (11:44→22:03)
--- NOTE | 2017-04-09 11:46 | IPNPDOC ---
Date Seen The patient was seen on 04/09/17. Progress Note SUBJECTIVE: Patient is a 67-year-old female with decompensated diastolic congestive heart failure. Patient is evaluated at bedside this morning. She is sitting in a chair. States that she feels quite weak and thinks that she would benefit from physical therapy to improve her strength. Her Osorio catheter remains in place. An order has been placed for the Osorio catheter to be removed. A renal profile has been ordered. She continues to diurese. REVIEW OF SYSTEMS: Admits to weakness and some abdominal pain secondary to abdominal fluid. Denies chest pain, fever, night sweats, chills. OBJECTIVE PHYSICAL EXAMINATION: VITAL SIGNS: Please see below. GENERAL: Obese female, well nourished, well developed, appears stated age, no acute distress, A&O x3 HEENT: Atraumatic, normocephalic, PERRL, EOMI, oral mucosa appears pink and moist, nasal septum appears midline, nares are patent CARDIOVASCULAR: Irregularly irregular heart rate and rhythm, no murmur, rub, click RESPIRATORY: Clear to auscultation bilaterally, adequate inspiratory and expiratory airway excursion, no wheeze, rhonchi, crackles ABDOMINAL: +2 pitting edema appreciated along the lower abdomen with cutaneous dimpling appreciated, bowel sounds appreciated EXTREMITIES: Chronic venous stasis dermatitis appreciated in bilateral lower extremities, +1 pitting edema appreciated in bilateral lower extremities NEUROLOGICAL: CN II-XII grossly intact PSYCHOLOGICAL: Alert and conversant LABORATORY DATA: Please see below. MICROBIOLOGY: Please see below. CURRENT INPATIENT MEDICATIONS: All medications reviewed by myself and attending. Have increased patient's Lasix to 40mg IV every eight hours. Added Metolazone 2.5mg orally daily. Remains on Amiloride 10mg orally daily. DVT prophylaxis ordered?: Pradaxa 150mg orally twice a day. ASSESSMENT AND PLAN: This is a 67-year-old female with decompensated diastolic congestive heart failure. Past medical history significant for chronic kidney disease stage III, paroxysmal atrial fibrillation, morbid obesity , and diastolic congestive heart failure. PROBLEMS: 1. Decompensated diastolic congestive heart failure: I/O over the last 24 hours is 2535mL. Have increased Lasix to 60mg IV every eight hours. Also added Metolazone 2.5mg orally daily. Continues with Amiloride 10mg orally daily. Would potentially benefit from 3L/day negative fluid balance. Changes to medications are to optimize fluid removal. Will reassess tomorrow. 2. Chronic kidney disease stage III: Renal function today has improved. Creatinine is 1.36, which is around patient's baseline of 1.3. Continue with diuresis. 3. Paroxysmal atrial fibrillation: Heart rate is controlled at this time. Continue current dose of metoprolol 12.5 mg twice a day, amiodarone 200 mg daily , and Pradaxa 150 mg by mouth twice a day. 4. Metabolic alkalosis: Remains on Amiloride 10 mg orally daily. Bicarbonate level is 35 today, which is acceptable. 5. Morbid obesity and deconditioning: Patient is sitting in a chair at today' s evaluation. She states that she feels weak and would benefit from physical therapy. Discontinue Osorio catheter in order to encourage her to ambulate. DISPOSITION: Continue with diuresis. Encourage ambulation. Remove Osorio catheter. VS, I&O, 24H, Fishbone Vital Signs/I&O Vital Signs Date Time Temp Pulse Resp B/P (MAP) Pulse Ox O2 Delivery O2 Flow Rate FiO2 04/09/17 08:45 Nasal Cannula 2.0 04/09/17 08:05 80 109/60 04/09/17 06:00 97.8 16 89 I&O- Last 24 Hours up to 6 AM 04/10/17 05:59 Intake Total 600 ml Output Total 350 ml Balance 250 ml Laboratory Data 24H LABS Laboratory Tests 2 04/08/17 11:32: Blood Urea Nitrogen 34H, Creatinine 1.39H, Sodium Level 139, Potassium Level 3.6 , Chloride Level 98, Carbon Dioxide Level 33H, Anion Gap 8, Glomerular Filtration Rate 40.3L, Calcium Level 8.9, Phosphorus Level 3.5, Albumin 3.0L 04/08/17 13:23: Bedside Glucose (Misc Panel) 99 04/08/17 16:57: Bedside Glucose (Misc Panel) 111 04/08/17 19:54: Bedside Glucose (Misc Panel) 141H 04/09/17 10:04: Blood Urea Nitrogen 30H, Creatinine 1.36H, Sodium Level 139, Potassium Level 3.7 , Chloride Level 98, Carbon Dioxide Level 35H, Anion Gap 6L, Glomerular Filtration Rate 41.3L, Calcium Level 9.1, Phosphorus Level 2.8, Albumin 3.3 CBC/BMP Laboratory Tests 04/08/17 11:32 Anion Gap 8 04/09/17 10:04 Anion Gap 6 L Microbiology Microbiology 03/31/17 Blood Culture - Final, Complete NO GROWTH AFTER 5 DAYS 03/31/17 Blood Culture - Final, Complete NO GROWTH AFTER 5 DAYS 03/31/17 Urine Culture - Final, Complete CHANELL LANCE DO Apr 09, 2017 11:46 MORGAN VERA MD Apr 11, 2017 22:28
--- NOTE | 2017-04-09 12:40 | IPNPDOC ---
Text Note Date of Service The patient was seen on 04/09/17. NOTE SUBJECTIVE: Patient is seen and examined at the bedside. chart has been reviewed. SOB has improved. right leg still with seepage. Hematuria has cleared. No fever or chills, no chest pain , cough improved, no nausea or vomiting or diarrhea.Had a small bowel movement . Sitting up in chair. Requests to keep the garcia in for 1 more day as still not moving very well.. PHYSICAL EXAM: Vitals : As Below General Exam: Positive: Alert, Cooperative, No Acute Distress Eye Exam: Positive: PERRLA, Conjunctiva & lids normal, EOMI ENT Exam: Positive: Atraumatic, Pharynx Normal, Tongue Midline, Other ENT ( poor dentition), Negative: Pharyngeal Edema Neck Exam: Positive: Supple, Negative: Lymphadenopathy Chest Exam: Positive: Rales (b/l lower lobes, diminished Heart Exam: Positive: Rate Normal, Irregular Rhythm, Other (distant heart sounds due to body habitus) Telemetry: Positive: Atrial fibrillation Abdomen Exam: Positive: Normal bowel sounds, Negative: Soft (tense from fluid, with dry skin no lower abdomen), Tenderness Extremity Exam: Positive: Edema (3+), Tenderness (mild tenderness to touch on right LE) Skin Exam: Positive: Lesion (right LE warm & erythematous, weeping clear fluid) Neuro Exam: Positive: Normal Speech, Strength at 5/5 X4 ext, Normal Tone, Sensation Intact Psych Exam: Positive: Mood NL, Oriented x 3 Laboratory data/imaging studies reviewed. ASSESSMENT: 67-year-old female admitted with a reason for visit of CHF. 67 yo F presents to ED via EMS after she fell trying to sit down in chair and per pt, just had miscalculated where the chair was. PMH includes diastolic CHF, paroxysmal A. fib on Pradaxa, HLD, HTN, NIDDM 2, COPD 1L NC, CAD s/p stents x2. Noted in ED to have 3+ pitting edema, weeping fluid in lower legs, crackles in lungs. Given ASA, Lasix, and Duoneb in ED and admitted for CHF exacerbation. PLAN: Acute decompensated diastolic heart failure currently on diamox and amiloride and lasix. supplement k and mg as needed. strict I/Os, daily weights, low salt diet, fluid restriction. SANTINO on CKD stage 3: due to cardiorenal syndrome improving with diuresis. Alkalosis resolved. Right LE Cellulitis: finished teflaro course. Leukocytosis: resolved. likely combination of reactionary to acute CHF decompensation and RLE cellulitis Hyperbilirubinemia resolved. may be 2/2 volume overload status and hepatic congestion Paroxysmal A.Fib on Pradaxa, amiodarone and Metoprolol Hematuria: resolved. due to trauma to garcia . HH stable will continue with Pradaxa. NIDDM2 hold home Metformin due to elevated Cr ISS inpatient. consistent carbs diet COPD: no acute exacerbation on 1L NC all the time at home. Will continue continue home Ventolin Chronic respiratory failure with hypoxia: will continue oxygen by nasal canula Pulmonary Hypertension: continue diuresis and oxygen CAD with h/o stent: stable at this point. HLD continue home med HTN continue home med GERD continue home med Right LE venous stasis ulcer: continue wound care. Morbid obesity bmi 60.5 complicating acute issues Obesity hypoventilation/ JANE: Had abnormal nocturnal pulse oximetry before. Never had a sleep study. continue on oxygen History of HIT: No heparin or lovenox. DVT prophylaxis with TEDS and SCD. Deconditioning. will most likely require prolong hospital stay and potential rehab. PT-activity as tolerated VS,Fishbone, I+O VS, Fishbone, I+O Laboratory Tests 04/09/17 10:04 Anion Gap 6 L Vital Signs Date Time Temp Pulse Resp B/P (MAP) Pulse Ox O2 Delivery O2 Flow Rate FiO2 04/09/17 12:14 20 Nasal Cannula 04/09/17 08:45 2.0 04/09/17 08:05 80 109/60 04/09/17 06:00 97.8 89 I&O- Last 24 Hours up to 6 AM 04/10/17 06:00 Intake Total 360 ml Output Total 350 ml Balance 10 ml ROMEO LUNDBERG MD Apr 09, 2017 12:40
[2017-04-09 14:00] VITALS: BP 124/58
[2017-04-09 22:00] VITALS: BP 105/50
[2017-04-09] MEDS: ATORVASTATIN 20 MG TAB PO SCH (22:00)
[2017-04-09] MEDS ORDERED: POTASSIUM CHLORIDE 10 MEQ SR TABLET PO ONE (22:15)
[2017-04-10] MEDS: FUROSEMIDE 100 MG/10 ML VIAL (J1940) IV SCH ×3 (01:04→17:01)
[2017-04-10 06:00] VITALS: BP 104/51
[2017-04-10] MEDS: SLF 3 ML SYR IV SCH ×2 (06:17→13:03)
[2017-04-10 07:16] LABS: MEAN CORPUSCULAR HEMOGLOBIN 29.8 pg (27.0-33.0); MEAN CORPUSCULAR HGB CONC 31.3 g/dl (32.0-36.5); MEAN CORPUSCULAR VOLUME 95.4 fl (80.0-96.0); PLATELET COUNT, AUTOMATED 246 10^3/uL (150-450); RED CELL DISTRIBUTION WIDTH 15.2 % (11.5-14.5); WHITE BLOOD COUNT 6.8 10^3/uL (4.0-10.0)
[2017-04-10] MEDS: TIOTROPIUM INHALER/CAPSULE (SPIRIVA) INH SCH (07:20)
[2017-04-10 07:29] LABS: CALCIUM LEVEL 9.3 MG/DL (8.8-10.2); CREATININE FOR GFR 1.33 MG/DL (0.55-1.02); GLOMERULAR FILTRATION RATE 42.4 (>45); POTASSIUM SERUM 3.5 MEQ/L (3.5-5.1)
[2017-04-10] MEDS: HumaLOG INSULIN (NovoLOG) PER UNIT SC SCH ×4 (07:30→21:00)
[2017-04-10] MEDS: METOPROLOL TART 12.5 MG PER 1/2 TAB PO SCH ×2 (09:00→21:00)
[2017-04-10] MEDS: NYSTATIN 100,000 UNITS/GM TOPICAL PWD 15 GM TOP SCH ×2 (09:00→21:00)
[2017-04-10] MEDS: BISACODYL 10 MG SUPP PR SCH (09:00)
[2017-04-10] MEDS: MIRALAX *UNIT DOSE* 17GM PACKET PO SCH (09:06)
[2017-04-10] MEDS: SENOKOT S TAB PO SCH ×2 (09:07→21:00)
[2017-04-10] MEDS: POTASSIUM CHLORIDE 10 MEQ SR TABLET PO SCH ×2 (09:07→22:00)
[2017-04-10] MEDS: FERROUS SULFATE 325MG TAB PO SCH (09:07)
[2017-04-10] MEDS: DABIGATRAN ETEXILATE 75 MG CAP (PRADAXA) PO SCH ×2 (09:07→21:58)
[2017-04-10] MEDS: aMILoride 5 MG TAB PO SCH (09:08)
[2017-04-10] MEDS: ASPIRIN 81 MG ENTERIC TAB PO SCH (09:08)
[2017-04-10] MEDS: metOLazone 2.5 MG TAB PO SCH (09:08)
[2017-04-10] MEDS: AMIODARONE 200 MG TAB (PACERONE) PO SCH (09:09)
[2017-04-10 10:34] LABS: MAGNESIUM LEVEL 2.4 MG/DL (1.8-2.4)
[2017-04-10] MEDS: NORCO, ANEXSIA 5/325MG TABLET (HYDROcodone/ACETAMINOPHEN) PO PRN ×2 (11:28→22:00)
--- NOTE | 2017-04-10 12:35 | IPNPDOC ---
Date Seen The patient was seen on 04/10/17. Progress Note SUBJECTIVE: Patient is a 67-year-old female with decompensated diastolic congestive heart failure. Patient is evaluated at bedside this morning. She is laying in bed on her left side. The Osorio catheter has been removed. She has a bedside urinal available. Renal function appears stable. Diuresed over 5L of fluid overnight on Lasix, Metolazone, and Amiloride. Potassium is low end of normal. REVIEW OF SYSTEMS: Admits to weakness and some abdominal pain secondary to abdominal fluid. Denies chest pain, fever, night sweats, chills. OBJECTIVE PHYSICAL EXAMINATION: VITAL SIGNS: Please see below. GENERAL: Obese female, well nourished, well developed, appears stated age, no acute distress, A&O x3 HEENT: Atraumatic, normocephalic, PERRL, EOMI, oral mucosa appears pink and moist, nasal septum appears midline, nares are patent CARDIOVASCULAR: Irregularly irregular heart rate and rhythm, no murmur, rub, click RESPIRATORY: Clear to auscultation bilaterally, adequate inspiratory and expiratory airway excursion, no wheeze, rhonchi, crackles ABDOMINAL: +2 pitting edema appreciated along the lower abdomen with cutaneous dimpling appreciated, bowel sounds appreciated EXTREMITIES: Chronic venous stasis dermatitis appreciated in bilateral lower extremities, +1 pitting edema appreciated in bilateral lower extremities NEUROLOGICAL: CN II-XII grossly intact PSYCHOLOGICAL: Alert and conversant LABORATORY DATA: Please see below. MICROBIOLOGY: Please see below. CURRENT INPATIENT MEDICATIONS: All medications reviewed by myself and attending. Remains on Lasix 60mg IV every eight hours. Have discontinued Metolazone 2.5mg orally daily as patient had more than adequate output overnight. Remains on Amiloride 10mg orally daily. DVT prophylaxis ordered?: Pradaxa 150mg orally twice a day. ASSESSMENT AND PLAN: This is a 67-year-old female with decompensated diastolic congestive heart failure. Past medical history significant for chronic kidney disease stage III, paroxysmal atrial fibrillation, morbid obesity , and diastolic congestive heart failure. PROBLEMS: 1. Decompensated diastolic congestive heart failure: I/O over the last 24 hours is 5450mL. Continue with Lasix 60mg IV every eight hours and Amiloride 10mg orally daily. Will discontinue Metolazone 2.5mg orally daily. 2. Chronic kidney disease stage III: Renal function today has improved. Creatinine is 1.33, which is around patient's baseline of 1.3. Continue with diuresis. 3. Paroxysmal atrial fibrillation: Heart rate is controlled at this time. Continue current dose of metoprolol 12.5 mg twice a day, amiodarone 200 mg daily , and Pradaxa 150 mg by mouth twice a day. 4. Metabolic alkalosis: Remains on Amiloride 10 mg orally daily. Bicarbonate level is 37 today, which is acceptable. 5. Morbid obesity and deconditioning: Patient is laying in bed during today's evaluation. Physical therapy notes limited functional activity due to oxygen requirements and desaturations. PT has recommended discharge to an inpatient rehabilitation facility only. Osorio catheter has been discontinued to provide ambulation. DISPOSITION: Continue with diuresis. Encourage ambulation. Continue with physical therapy. VS, I&O, 24H, Fishbone Vital Signs/I&O Vital Signs Date Time Temp Pulse Resp B/P (MAP) Pulse Ox O2 Delivery O2 Flow Rate FiO2 04/10/17 11:28 22 Nasal Cannula 3.0 04/10/17 06:00 97.1 67 104/51 (68) 98 I&O- Last 24 Hours up to 6 AM 04/11/17 06:00 Intake Total 120 ml Output Total 1550 ml Balance -1430 ml Laboratory Data 24H LABS Laboratory Tests 2 04/09/17 12:01: Bedside Glucose (Misc Panel) 122H 04/09/17 16:57: Bedside Glucose (Misc Panel) 99 04/09/17 20:47: Bedside Glucose (Misc Panel) 175H 04/10/17 07:03: Nucleated Red Blood Cells % (auto) 0.0, Anion Gap 5L, Glomerular Filtration Rate 42.4L, Blood Urea Nitrogen 31H, Creatinine 1.33H, Sodium Level 138, Potassium Level 3.5, Chloride Level 96L, Carbon Dioxide Level 37H, Calcium Level 9.3, Magnesium Level 2.4 CBC/BMP Laboratory Tests 04/10/17 07:03 Red Blood Count 3.89 L, Mean Corpuscular Volume 95.4, Mean Corpuscular Hemoglobin 29.8, Mean Corpuscular Hemoglobin Concent 31.3 L, Red Cell Distribution Width 15.2 H, Calcium Level 9.3 Microbiology Microbiology 03/31/17 Blood Culture - Final, Complete NO GROWTH AFTER 5 DAYS 03/31/17 Blood Culture - Final, Complete NO GROWTH AFTER 5 DAYS 03/31/17 Urine Culture - Final, Complete CHANELL LANCE DO Apr 10, 2017 11:50
[2017-04-10 14:00] VITALS: BP 123/78
--- NOTE | 2017-04-10 14:21 | IPNPDOC ---
Subjective Date Seen The patient was seen on 04/10/17. Subjective Chief Complaint/HPI The patient is a 67-year-old female admitted with a reason for visit of CHF. Events since last encounter Patient seen and examined at the bedside. States that the lower extremity edema is improving. Reports that she is eager to work with physical therapy to regain her strength. Denies any acute complaints at this time. Objective Physical Examination General Exam: Positive: Alert, Cooperative, No Acute Distress ENT Exam: Positive: Atraumatic, Mucous membr. moist/pink Chest Exam: Positive: Rales (b/l lower lobes), Diminished Heart Exam: Positive: Rate Normal, Irregular Rhythm Telemetry: Positive: Atrial fibrillation Abdomen Exam: Positive: Normal bowel sounds, Negative: Soft, Tenderness Extremity Exam: Positive: Edema (2+), Negative: Tenderness Skin Exam: Positive: Lesion (right LE warm & erythematous, weeping clear fluid) Psych Exam: Positive: Oriented x 3 Assessment /Plan Plan/VTE VTE Prophylaxis Ordered?: Yes Plan Acute decompensated diastolic heart failure Continue on Amiloride and IV Lasix as per Nephrology We will cont to supplement k and mg as needed. The patient has diuresed a net negative of 30L, and has lost 20kg according to records here Cont strict I/Os, daily weights, low salt diet, fluid restriction CKD stage 3 Serum Cr appears to be stable here Nephrology on board Right LE Cellulitis, resolved s/p completion of Teflaro Leukocytosis, resolved. Likely combination of reactionary to acute CHF decompensation and RLE cellulitis Paroxysmal A.Fib Cont Pradaxa, amiodarone and Metoprolol NIDDM2 ISS inpatient. consistent carbs diet COPD: no acute exacerbation on 1L NC all the time at home Continue home Ventolin Chronic respiratory failure with hypoxia Continue oxygen by nasal canula Pulmonary Hypertension continue diuresis and oxygen as ordered CAD with h/o stent: stable at this point. HLD continue home med HTN continue home med GERD continue home med Right LE venous stasis ulcer: continue wound care. Morbid obesity bmi 60.5 complicating acute issues Obesity hypoventilation/ JANE: Had abnormal nocturnal pulse oximetry before. Never had a sleep study. continue on oxygen DVT prophylaxis Already on Pradaxa Deconditioning--PT on board for functional optimization VS, I&O, 24H, Fishbone Vital Signs/I&O Vital Signs Date Time Temp Pulse Resp B/P (MAP) Pulse Ox O2 Delivery O2 Flow Rate FiO2 04/10/17 11:58 20 Nasal Cannula 3.0 04/10/17 06:00 97.1 67 104/51 (68) 98 I&O- Last 24 Hours up to 6 AM 04/11/17 06:00 Intake Total 360 ml Output Total 1750 ml Balance -1390 ml Laboratory Data 24H LABS Laboratory Tests 2 04/09/17 16:57: Bedside Glucose (Misc Panel) 99 04/09/17 20:47: Bedside Glucose (Misc Panel) 175H 04/10/17 07:03: Nucleated Red Blood Cells % (auto) 0.0, Anion Gap 5L, Glomerular Filtration Rate 42.4L, Blood Urea Nitrogen 31H, Creatinine 1.33H, Sodium Level 138, Potassium Level 3.5, Chloride Level 96L, Carbon Dioxide Level 37H, Calcium Level 9.3, Magnesium Level 2.4 04/10/17 11:26: Bedside Glucose (Misc Panel) 129H CBC/BMP Laboratory Tests 04/10/17 07:03 Red Blood Count 3.89 L, Mean Corpuscular Volume 95.4, Mean Corpuscular Hemoglobin 29.8, Mean Corpuscular Hemoglobin Concent 31.3 L, Red Cell Distribution Width 15.2 H, Calcium Level 9.3 Microbiology Microbiology 03/31/17 Blood Culture - Final, Complete NO GROWTH AFTER 5 DAYS 03/31/17 Blood Culture - Final, Complete NO GROWTH AFTER 5 DAYS 03/31/17 Urine Culture - Final, Complete TRACIE BRITTON MD Apr 10, 2017 14:20
[2017-04-10] MEDS: ATORVASTATIN 20 MG TAB PO SCH (21:58)
[2017-04-10 22:00] VITALS: BP 102/52
[2017-04-11] MEDS: FUROSEMIDE 100 MG/10 ML VIAL (J1940) IV SCH ×3 (01:17→15:57)
[2017-04-11] MEDS: SLF 3 ML SYR IV SCH ×4 (01:17→22:20)
[2017-04-11 06:00] VITALS: BP 101/50
[2017-04-11 07:10] LABS: MEAN CORPUSCULAR HEMOGLOBIN 29.8 pg (27.0-33.0); MEAN CORPUSCULAR HGB CONC 31.9 g/dl (32.0-36.5); MEAN CORPUSCULAR VOLUME 93.6 fl (80.0-96.0); PLATELET COUNT, AUTOMATED 264 10^3/uL (150-450); RED CELL DISTRIBUTION WIDTH 14.8 % (11.5-14.5); WHITE BLOOD COUNT 8.1 10^3/uL (4.0-10.0)
[2017-04-11 07:22] LABS: CALCIUM LEVEL 9.7 MG/DL (8.8-10.2); CREATININE FOR GFR 1.44 MG/DL (0.55-1.02); GLOMERULAR FILTRATION RATE 38.7 (>45); POTASSIUM SERUM 3.2 MEQ/L (3.5-5.1)
[2017-04-11] MEDS: METOPROLOL TART 12.5 MG PER 1/2 TAB PO SCH ×2 (08:31→21:00)
[2017-04-11] MEDS: POTASSIUM CHLORIDE 10 MEQ SR TABLET PO SCH ×3 (08:39→22:19)
[2017-04-11] MEDS: FERROUS SULFATE 325MG TAB PO SCH (08:39)
[2017-04-11] MEDS: SENOKOT S TAB PO SCH ×2 (08:40→21:00)
[2017-04-11] MEDS: HumaLOG INSULIN (NovoLOG) PER UNIT SC SCH ×4 (08:40→22:19)
[2017-04-11] MEDS: ASPIRIN 81 MG ENTERIC TAB PO SCH (08:40)
[2017-04-11] MEDS: AMIODARONE 200 MG TAB (PACERONE) PO SCH (08:40)
[2017-04-11] MEDS: MIRALAX *UNIT DOSE* 17GM PACKET PO SCH (08:40)
[2017-04-11] MEDS: BISACODYL 10 MG SUPP PR SCH (08:41)
[2017-04-11] MEDS: aMILoride 5 MG TAB PO SCH (08:43)
[2017-04-11] MEDS: DABIGATRAN ETEXILATE 75 MG CAP (PRADAXA) PO SCH ×2 (08:44→22:19)
[2017-04-11] MEDS: NYSTATIN 100,000 UNITS/GM TOPICAL PWD 15 GM TOP SCH ×2 (08:44→21:00)
[2017-04-11] MEDS: ANALGESIC BALM CRM 120 GM TOP SCH ×2 (09:00→22:18)
[2017-04-11] MEDS: TIOTROPIUM INHALER/CAPSULE (SPIRIVA) INH SCH (11:11)
--- NOTE | 2017-04-11 13:41 | IPNPDOC ---
Subjective Date Seen The patient was seen on 04/11/17. Subjective Chief Complaint/HPI The patient is a 67-year-old female admitted with a reason for visit of CHF. Events since last encounter Patient seen and examined at the bedside. States that she is feeling better today, and notes that she has been transferring to the commode independently. Denies any acute overnight complaints. Objective Physical Examination General Exam: Positive: Alert, Cooperative, No Acute Distress ENT Exam: Positive: Atraumatic, Mucous membr. moist/pink Chest Exam: Positive: Rales (b/l lower lobes), Diminished Heart Exam: Positive: Rate Normal, Irregular Rhythm Telemetry: Positive: Atrial fibrillation Abdomen Exam: Positive: Normal bowel sounds, Negative: Soft, Tenderness Extremity Exam: Positive: Edema (2+), Negative: Tenderness Skin Exam: Positive: Lesion (right LE warm & erythematous, weeping clear fluid) Psych Exam: Positive: Oriented x 3 Assessment /Plan Plan/VTE VTE Prophylaxis Ordered?: Yes Plan Acute decompensated diastolic heart failure Continue on Amiloride and IV Lasix as per Nephrology We will cont to supplement k and mg as needed. The patient has diuresed a net negative of 30L, and has lost 20kg according to records here Cont strict I/Os, daily weights, low salt diet, fluid restriction CKD stage 3 Serum Cr appears to be stable here Nephrology on board Right LE Cellulitis, resolved s/p completion of Teflaro Leukocytosis, resolved. Likely combination of reactionary to acute CHF decompensation and RLE cellulitis Paroxysmal A.Fib Cont Pradaxa, amiodarone and Metoprolol NIDDM2 ISS inpatient. consistent carbs diet COPD: no acute exacerbation on 1L NC all the time at home Continue home Ventolin Chronic respiratory failure with hypoxia Continue oxygen by nasal canula Pulmonary Hypertension continue diuresis and oxygen as ordered CAD with h/o stent: stable at this point. HLD continue home med HTN continue home med GERD continue home med Right LE venous stasis ulcer: continue wound care. Morbid obesity bmi 60.5 complicating acute issues Obesity hypoventilation/ JANE: Had abnormal nocturnal pulse oximetry before. Never had a sleep study. continue on oxygen DVT prophylaxis Already on Pradaxa Deconditioning--PT on board for functional optimization VS, I&O, 24H, Fishbone Vital Signs/I&O Vital Signs Date Time Temp Pulse Resp B/P (MAP) Pulse Ox O2 Delivery O2 Flow Rate FiO2 04/11/17 08:31 69 101/50 04/11/17 08:30 Nasal Cannula 2.0 04/11/17 06:00 97.4 22 98 I&O- Last 24 Hours up to 6 AM 04/12/17 06:00 Intake Total 120 ml Balance 120 ml Laboratory Data 24H LABS Laboratory Tests 2 04/10/17 16:41: Bedside Glucose (Misc Panel) 123H 04/10/17 21:01: Bedside Glucose (Misc Panel) 206H 04/11/17 06:48: Nucleated Red Blood Cells % (auto) 0.0, Anion Gap 7L, Glomerular Filtration Rate 38.7L, Blood Urea Nitrogen 39H, Creatinine 1.44H, Sodium Level 136, Potassium Level 3.2L, Chloride Level 89L, Carbon Dioxide Level 40H, Calcium Level 9.7 CBC/BMP Laboratory Tests 04/11/17 06:48 Red Blood Count 4.19, Mean Corpuscular Volume 93.6, Mean Corpuscular Hemoglobin 29.8, Mean Corpuscular Hemoglobin Concent 31.9 L, Red Cell Distribution Width 14.8 H, Calcium Level 9.7 TRACIE BRITTON MD Apr 11, 2017 13:41
[2017-04-11 14:00] VITALS: BP 114/63
[2017-04-11] MEDS: NORCO, ANEXSIA 5/325MG TABLET (HYDROcodone/ACETAMINOPHEN) PO PRN (15:56)
[2017-04-11 22:00] VITALS: BP 97/52
[2017-04-11] MEDS: ATORVASTATIN 20 MG TAB PO SCH (22:19)
[2017-04-12] MEDS: NORCO, ANEXSIA 5/325MG TABLET (HYDROcodone/ACETAMINOPHEN) PO PRN ×3 (01:38→21:56)
[2017-04-12] MEDS: FUROSEMIDE 100 MG/10 ML VIAL (J1940) IV SCH ×3 (01:41→16:15)
--- NOTE | 2017-04-12 04:09 | IPN ---
DATE OF SERVICE: 04/11/2017 SUBJECTIVE: Patient was seen and examined at the bedside today morning. She was lying in the bed. Patient reported that she was feeling weak and tired. Otherwise, she is hemodynamically stable. There is slight bump in the creatinine today as compared with yesterday. However, she continues to diurese very well. REVIEW OF SYSTEMS: Patient denies any fever, chills, rigors. She denies any headache, chest pain, shortness of breath. Patient reports her abdominal wall edema is improving. She reported leg edema is significantly better and she had a few cramps in the legs overnight. Rest of review of systems is negative. OBJECTIVE: VITAL SIGNS: Temperature is 97 degrees Fahrenheit, blood pressure is 114/63, pulse is 88, respiratory rate of 18, saturating 91% on nasal cannula at 2 liters. INTAKE AND OUTPUT: Urine output recorded yesterday was 6 liters. Urine output is not recorded well today because Osorio catheter has been removed. Weight on the bed scale is stable at 153 kg. PHYSICAL EXAMINATION: GENERAL: Patient is awake, alert, oriented times three, lying in bed, morbidly obese. HEAD AND NECK EXAMINATION: Extraocular muscles intact. Pupils equally round and reactive to light. Mucous membranes are moist. Neck is supple. I could not appreciate the jugular venous distention (JVD) because of body habitus. CARDIOVASCULAR: S1, S2, irregularly irregular heart rate. She has trace edema of the bilateral lower extremities and she has abdominal wall edema. RESPIRATORY: Chest is clear to auscultation bilaterally. Bilateral equal air entry. No rales or rhonchi. ABDOMEN: Soft. Obese. Positive bowel sounds. There is large amount of abdominal wall edema in the lower part of abdomen and of pannus. I could not appreciate any organomegaly. MUSCULOSKELETAL: No clubbing or cyanosis. Trace edema of the bilateral lower extremities. The ulcers on the legs have healed now. 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 Power is 5/5 in all extremities. PSYCHIATRIC: Normal mood and affect. LABORATORY REVIEW: CBC showed a WBC 8.1, hemoglobin 12.5, platelets are 264. BMP showed sodium 136, potassium 3.2, chloride 89, bicarbonate 40, BUN 39, creatinine is 1.44, calcium 9.7. CURRENT INPATIENT MEDICATIONS: Patient's medications were all reviewed by me. She continues to be on Lasix 60 mg IV every 8 hours and amiloride 10 mg daily. Her potassium has been changed to 40 mEq by mouth twice a day. Metolazone has been stopped because she was becoming alkalotic and made more than 6 liters of urine yesterday. ASSESSMENT: 67-year-old female with past medical history of chronic kidney disease stage III, chronic diastolic congestive heart failure, paroxysmal atrial fibrillation, and morbid obesity, admitted this time because of decompensated diastolic congestive heart failure secondary to noncompliance with her diuretic regimen. PLAN: 1. Decompensated diastolic congestive heart failure. The patient continues to diurese well. She was getting alkalotic, so I stopped her metolazone yesterday. Continue current dose of Lasix 60 mg every 8 hours. Continue amiloride 10 mg daily. 2. Chronic kidney disease stage III. Creatinine had been fluctuating around 1.3. However, there is a slight bump in the creatinine today to 1.4. Diuretic regimen has been tapered down. 3. Hypokalemia. Patient was given extra dose of potassium chloride 40 mEq and I have changed her oral potassium 40 mEq by mouth twice a day. Continue current dose now. 4. Paroxysmal atrial fibrillation. Heart rate is controlled at this time. Continue current dose of metoprolol 12.5 mg by mouth twice a day, amiodarone 200 mg daily, and Pradaxa 150 mg by mouth twice a day. 5. Metabolic alkalosis. It is secondary to aggressive diuresis. Initially patient was on acetazolamide, which was stopped. Bicarbonate level is going up. I have stopped the metolazone. Continue current dose of Lasix and amiloride. If bicarbonate level goes further up, then patient will be restarted on acetazolamide. 6. Morbid obesity and deconditioning. Patient's Osorio catheter was removed yesterday and she was asked to walk to the restroom and she needs extensive physical therapy as well. As per physical therapy notes, she was only able to ambulate 11 feet and she gets tired and desaturates. Continue the current rehabilitation at this time.
[2017-04-12] MEDS: SLF 3 ML SYR IV SCH ×3 (05:58→22:00)
[2017-04-12 06:00] VITALS: BP 103/52
[2017-04-12 06:42] LABS: MEAN CORPUSCULAR HEMOGLOBIN 30.3 pg (27.0-33.0); MEAN CORPUSCULAR HGB CONC 32.1 g/dl (32.0-36.5); MEAN CORPUSCULAR VOLUME 94.3 fl (80.0-96.0); PLATELET COUNT, AUTOMATED 290 10^3/uL (150-450); WHITE BLOOD COUNT 8.3 10^3/uL (4.0-10.0)
[2017-04-12 07:10] LABS: CALCIUM LEVEL 8.9 MG/DL (8.8-10.2); CREATININE FOR GFR 1.43 MG/DL (0.55-1.02); POTASSIUM SERUM 3.5 MEQ/L (3.5-5.1)
[2017-04-12] MEDS: HumaLOG INSULIN (NovoLOG) PER UNIT SC SCH ×4 (07:51→21:00)
[2017-04-12] MEDS: POTASSIUM CHLORIDE 10 MEQ SR TABLET PO SCH ×2 (07:52→21:55)
[2017-04-12] MEDS: MIRALAX *UNIT DOSE* 17GM PACKET PO SCH (07:53)
[2017-04-12] MEDS: FERROUS SULFATE 325MG TAB PO SCH (07:53)
[2017-04-12] MEDS: ASPIRIN 81 MG ENTERIC TAB PO SCH (07:53)
[2017-04-12] MEDS: DABIGATRAN ETEXILATE 75 MG CAP (PRADAXA) PO SCH ×2 (07:53→21:55)
[2017-04-12] MEDS: BISACODYL 10 MG SUPP PR SCH (07:54)
[2017-04-12] MEDS: SENOKOT S TAB PO SCH ×2 (07:54→21:00)
[2017-04-12] MEDS: METOPROLOL TART 12.5 MG PER 1/2 TAB PO SCH ×2 (07:55→21:00)
[2017-04-12] MEDS: AMIODARONE 200 MG TAB (PACERONE) PO SCH (07:56)
[2017-04-12] MEDS: aMILoride 5 MG TAB PO SCH (07:56)
[2017-04-12] MEDS: NYSTATIN 100,000 UNITS/GM TOPICAL PWD 15 GM TOP SCH ×2 (07:57→21:00)
[2017-04-12] MEDS: ANALGESIC BALM CRM 120 GM TOP SCH ×2 (07:57→21:00)
[2017-04-12] MEDS: TIOTROPIUM INHALER/CAPSULE (SPIRIVA) INH SCH (07:59)
[2017-04-12] MEDS: LORATADINE 10 MG TAB PO PRN (08:14)
--- NOTE | 2017-04-12 11:17 | IPNPDOC ---
Subjective Date Seen The patient was seen on 04/12/17. Subjective Chief Complaint/HPI The patient is a 67-year-old female admitted with a reason for visit of CHF. Events since last encounter Patient seen and examined at the bedside. States that her volume status is improving, she has been better able to work with occupational therapy this morning. Denies any acute overnight complaints. Objective Physical Examination General Exam: Positive: Alert, Cooperative, No Acute Distress ENT Exam: Positive: Atraumatic, Mucous membr. moist/pink Chest Exam: Positive: Rales (b/l lower lobes), Diminished Heart Exam: Positive: Rate Normal, Irregular Rhythm Telemetry: Positive: Atrial fibrillation Abdomen Exam: Positive: Normal bowel sounds, Negative: Soft, Tenderness Extremity Exam: Positive: Edema (2+), Negative: Tenderness Skin Exam: Positive: Lesion (right LE warm & erythematous, weeping clear fluid) Psych Exam: Positive: Oriented x 3 Assessment /Plan Plan/VTE VTE Prophylaxis Ordered?: Yes Plan Acute decompensated diastolic heart failure Continue on Amiloride and IV Lasix as per Nephrology We will cont to supplement k and mg as needed. The patient has diuresed a net negative of +30L, and has lost +20kg according to records here Cont strict I/Os, daily weights, low salt diet, fluid restriction CKD stage 3 Serum Cr appears to be stable here Nephrology on board Right LE Cellulitis, resolved s/p completion of Teflaro Leukocytosis, resolved. Likely combination of reactionary to acute CHF decompensation and RLE cellulitis Paroxysmal A.Fib Cont Pradaxa, amiodarone and Metoprolol NIDDM2 ISS inpatient. consistent carbs diet COPD: no acute exacerbation on 1L NC all the time at home Continue home Ventolin Chronic respiratory failure with hypoxia Continue oxygen by nasal canula Pulmonary Hypertension continue diuresis and oxygen as ordered CAD with h/o stent: stable at this point. HLD continue home med HTN continue home med GERD continue home med Right LE venous stasis ulcer: continue wound care. Morbid obesity bmi 60.5 complicating acute issues Obesity hypoventilation/ JANE: Had abnormal nocturnal pulse oximetry before. Never had a sleep study. continue on oxygen DVT prophylaxis Already on Pradaxa Deconditioning--PT on board for functional optimization VS, I&O, 24H, Fishbone Vital Signs/I&O Vital Signs Date Time Temp Pulse Resp B/P (MAP) Pulse Ox O2 Delivery O2 Flow Rate FiO2 04/12/17 10:25 18 Nasal Cannula 04/12/17 07:55 90 101/63 04/12/17 06:00 96.5 96 2.0 I&O- Last 24 Hours up to 6 AM 04/13/17 06:00 Intake Total 240 ml Output Total 100 ml Balance 140 ml Laboratory Data 24H LABS Laboratory Tests 2 04/11/17 11:31: Bedside Glucose (Misc Panel) 130H 04/11/17 16:57: Bedside Glucose (Misc Panel) 126H 04/11/17 20:14: Bedside Glucose (Misc Panel) 273H 04/12/17 06:20: Nucleated Red Blood Cells % (auto) 0.0, Anion Gap 5L, Glomerular Filtration Rate 39.0L, Blood Urea Nitrogen 45H, Creatinine 1.43H, Sodium Level 136, Potassium Level 3.5, Chloride Level 96L, Carbon Dioxide Level 35H, Calcium Level 8.9 CBC/BMP Laboratory Tests 04/12/17 06:20 Red Blood Count 4.03, Mean Corpuscular Volume 94.3, Mean Corpuscular Hemoglobin 30.3, Mean Corpuscular Hemoglobin Concent 32.1, Red Cell Distribution Width 15.0 H, Calcium Level 8.9 TRACIE BRITTON MD Apr 12, 2017 11:17
--- NOTE | 2017-04-12 11:36 | IPNPDOC ---
Date Seen The patient was seen on 04/12/17. Progress Note SUBJECTIVE: Patient was seen and examined at the bedside this morning. She is sitting in a chair during my evaluation. Feels as if her swelling is improving. Per patient, did not have a good day yesterday because she felt nauseated with abdominal pain. Was unable to participate with physical therapy yesterday due to how she was feeling. Feels better today. Participated with occupational therapy today and says that it went well. Continues to diurese well. REVIEW OF SYSTEMS: Patient denies any fever, chills, rigors. She denies any headache, chest pain, shortness of breath. Patient reports her abdominal wall edema is improving. She reported leg edema is significantly better without cramps, numbness, or tingling in upper or lower extremities. Rest of review of systems is negative. PHYSICAL EXAMINATION: GENERAL: Patient is awake, alert, oriented times three, sitting in a chair, morbidly obese. HEAD AND NECK EXAMINATION: Extraocular muscles intact. Pupils equally round and reactive to light. Mucous membranes are moist. Neck is supple. I could not appreciate the jugular venous distention (JVD) because of body habitus. CARDIOVASCULAR: S1, S2, irregularly irregular heart rate. She has trace edema of the bilateral lower extremities and she has abdominal wall edema on the right > left. RESPIRATORY: Chest is clear to auscultation bilaterally. Bilateral equal air entry. No rales or rhonchi. ABDOMEN: Soft. Obese. Positive bowel sounds. There is large amount of abdominal wall edema in the lower part of abdomen and of pannus. I could not appreciate any organomegaly. MUSCULOSKELETAL: No clubbing or cyanosis. Trace edema of the bilateral lower extremities. The ulcers on the legs have healed now. 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 Power is 5/5 in all extremities. PSYCHIATRIC: Normal mood and affect. LABORATORY REVIEW: See below. CURRENT INPATIENT MEDICATIONS: Patient's medications were all reviewed by myself and my attending. She continues to be on Lasix 60 mg IV every 8 hours and amiloride 10 mg daily. Continues with potassium 40 mEq by mouth twice a day. ASSESSMENT: 67-year-old female with past medical history of chronic kidney disease stage III, chronic diastolic congestive heart failure, paroxysmal atrial fibrillation, and morbid obesity, admitted this time because of decompensated diastolic congestive heart failure secondary to noncompliance with her diuretic regimen. PLAN: 1. Decompensated diastolic congestive heart failure: Remains on Lasix 60mg IV every eight hours and Amiloride 10mg orally daily. 2. Chronic kidney disease stage III: Creatinine is 1.43. Metolazone has been discontinued. Patient diuresed very well two nights ago. Diuresis continues to be appropriate. 3. Hypokalemia: Low end of normal. Continues with oral Potassium 40mEq orally twice a day. 4. Paroxysmal atrial fibrillation: Heart rate is controlled at this time. Continue current dose of metoprolol 12.5 mg by mouth twice a day, amiodarone 200 mg daily, and Pradaxa 150 mg by mouth twice a day. 5. Metabolic alkalosis: Bicarbonate level is 35. Continue with Lasix and Amiloride. Could consider restarting Acetazolamie if bicarbonate continues to increase. 6. Morbid obesity and deconditioning: Continues to make progress with PT and OT; however, desaturates with activity, but able to recover within minutes. Continue with rehabilitation at this time. DISPOSITION: Monitor BMP and diuresis. VS, I&O, 24H, [facility] Vital Signs/I&O Vital Signs Date Time Temp Pulse Resp B/P (MAP) Pulse Ox O2 Delivery O2 Flow Rate FiO2 04/12/17 10:25 18 Nasal Cannula 04/12/17 07:55 90 101/63 04/12/17 06:00 96.5 96 2.0 I&O- Last 24 Hours up to 6 AM 04/13/17 06:00 Intake Total 240 ml Output Total 100 ml Balance 140 ml Laboratory Data 24H LABS Laboratory Tests 2 04/11/17 11:31: Bedside Glucose (Misc Panel) 130H 04/11/17 16:57: Bedside Glucose (Misc Panel) 126H 04/11/17 20:14: Bedside Glucose (Misc Panel) 273H 04/12/17 06:20: Nucleated Red Blood Cells % (auto) 0.0, Anion Gap 5L, Glomerular Filtration Rate 39.0L, Blood Urea Nitrogen 45H, Creatinine 1.43H, Sodium Level 136, Potassium Level 3.5, Chloride Level 96L, Carbon Dioxide Level 35H, Calcium Level 8.9 CBC/BMP Laboratory Tests 04/12/17 06:20 Red Blood Count 4.03, Mean Corpuscular Volume 94.3, Mean Corpuscular Hemoglobin 30.3, Mean Corpuscular Hemoglobin Concent 32.1, Red Cell Distribution Width 15.0 H, Calcium Level 8.9 CHANELL LANCE DO Apr 12, 2017 11:36
[2017-04-12 14:00] VITALS: BP 100/65
[2017-04-12] MEDS: ATORVASTATIN 20 MG TAB PO SCH (21:55)
[2017-04-12 22:00] VITALS: BP 98/55
[2017-04-13] MEDS: FUROSEMIDE 100 MG/10 ML VIAL (J1940) IV SCH ×3 (01:30→21:38)
[2017-04-13 06:00] VITALS: BP 96/51
[2017-04-13] MEDS: TIOTROPIUM INHALER/CAPSULE (SPIRIVA) INH SCH (07:23)
[2017-04-13] MEDS: MIRALAX *UNIT DOSE* 17GM PACKET PO SCH (08:09)
[2017-04-13] MEDS: BISACODYL 10 MG SUPP PR SCH (08:09)
[2017-04-13] MEDS: SENOKOT S TAB PO SCH ×2 (08:09→21:00)
[2017-04-13] MEDS: ASPIRIN 81 MG ENTERIC TAB PO SCH (08:27)
[2017-04-13] MEDS: LORATADINE 10 MG TAB PO PRN (08:27)
[2017-04-13] MEDS: FERROUS SULFATE 325MG TAB PO SCH (08:27)
[2017-04-13] MEDS: POTASSIUM CHLORIDE 10 MEQ SR TABLET PO SCH (08:27)
[2017-04-13] MEDS: aMILoride 5 MG TAB PO SCH (08:28)
[2017-04-13] MEDS: DABIGATRAN ETEXILATE 75 MG CAP (PRADAXA) PO SCH ×2 (08:28→21:36)
[2017-04-13] MEDS: METOPROLOL TART 12.5 MG PER 1/2 TAB PO SCH ×2 (08:28→21:37)
[2017-04-13] MEDS: AMIODARONE 200 MG TAB (PACERONE) PO SCH (08:28)
[2017-04-13] MEDS: ANALGESIC BALM CRM 120 GM TOP SCH ×2 (08:29→21:00)
[2017-04-13] MEDS: NYSTATIN 100,000 UNITS/GM TOPICAL PWD 15 GM TOP SCH ×2 (08:29→21:00)
[2017-04-13] MEDS: HumaLOG INSULIN (NovoLOG) PER UNIT SC SCH ×4 (08:45→21:00)
[2017-04-13] MEDS: SLF 3 ML SYR IV SCH ×3 (08:45→22:00)
[2017-04-13 09:01] LABS: MEAN CORPUSCULAR HEMOGLOBIN 30.4 pg (27.0-33.0); MEAN CORPUSCULAR HGB CONC 31.9 g/dl (32.0-36.5); MEAN CORPUSCULAR VOLUME 95.3 fl (80.0-96.0); PLATELET COUNT, AUTOMATED 342 10^3/uL (150-450); RED CELL DISTRIBUTION WIDTH 15.7 % (11.5-14.5); WHITE BLOOD COUNT 8.3 10^3/uL (4.0-10.0)
[2017-04-13 09:39] LABS: CALCIUM LEVEL 9.1 MG/DL (8.8-10.2); CREATININE FOR GFR 1.64 MG/DL (0.55-1.02); GLOMERULAR FILTRATION RATE 33.3 (>45); POTASSIUM SERUM 3.9 MEQ/L (3.5-5.1)
[2017-04-13] MEDS: NORCO, ANEXSIA 5/325MG TABLET (HYDROcodone/ACETAMINOPHEN) PO PRN ×2 (10:54→21:39)
--- NOTE | 2017-04-13 10:54 | IPNPDOC ---
Subjective Date Seen The patient was seen on 04/13/17. Subjective Chief Complaint/HPI The patient is a 67-year-old female admitted with a reason for visit of CHF. Events since last encounter Patient seen and examined at the bedside. States that she is feeling blackener, and notes that she has been able to work better with physical/occupational therapy. Notes that she is getting closer to being back to her baseline Objective Physical Examination General Exam: Positive: Alert, Cooperative, No Acute Distress ENT Exam: Positive: Atraumatic, Mucous membr. moist/pink Chest Exam: Positive: Diminished Heart Exam: Positive: Rate Normal, Irregular Rhythm Telemetry: Positive: Atrial fibrillation Abdomen Exam: Positive: Normal bowel sounds, Negative: Soft, Tenderness Extremity Exam: Positive: Edema (2+ b/l LE), Negative: Tenderness Psych Exam: Positive: Oriented x 3 Assessment /Plan Plan/VTE VTE Prophylaxis Ordered?: Yes Plan Acute decompensated diastolic heart failure Continue on Amiloride and IV Lasix as per Nephrology We will cont to supplement k and mg as needed. The patient has diuresed a net negative of +30L, and has lost +20kg according to records here Cont strict I/Os, daily weights, low salt diet, fluid restriction CKD stage 3 Serum Cr appears to be trending upward with IV diuresis Nephrology on board Right LE Cellulitis, resolved s/p completion of Teflaro Leukocytosis, resolved. Likely combination of reactionary to acute CHF decompensation and RLE cellulitis Paroxysmal A.Fib Cont Pradaxa, amiodarone and Metoprolol NIDDM2 ISS inpatient. consistent carbs diet COPD: no acute exacerbation on 1L NC all the time at home Continue home Ventolin Chronic respiratory failure with hypoxia Continue oxygen by nasal canula Pulmonary Hypertension continue diuresis and oxygen as ordered CAD with h/o stent: stable at this point. HLD continue home med HTN continue home med GERD continue home med Right LE venous stasis ulcer: continue wound care. Morbid obesity bmi 60.5 complicating acute issues Obesity hypoventilation/ JANE: Had abnormal nocturnal pulse oximetry before. Never had a sleep study. continue on oxygen DVT prophylaxis Already on Pradaxa Deconditioning--PT on board for functional optimization VS, I&O, 24H, Fishbone Vital Signs/I&O Vital Signs Date Time Temp Pulse Resp B/P (MAP) Pulse Ox O2 Delivery O2 Flow Rate FiO2 04/13/17 08:28 97 101/63 04/13/17 06:00 96.4 20 99 Nasal Cannula 2.0 I&O- Last 24 Hours up to 6 AM 04/14/17 06:00 Intake Total 180 ml Output Total 250 ml Balance -70 ml Laboratory Data 24H LABS Laboratory Tests 2 04/12/17 11:33: Bedside Glucose (Misc Panel) 152H 04/12/17 16:42: Bedside Glucose (Misc Panel) 131H 04/13/17 08:25: Bedside Glucose (Misc Panel) 176H 04/13/17 08:41: Nucleated Red Blood Cells % (auto) 0.0, Anion Gap 10, Glomerular Filtration Rate 33.3L, Blood Urea Nitrogen 45H, Creatinine 1.64H, Sodium Level 136, Potassium Level 3.9, Chloride Level 95L, Carbon Dioxide Level 31, Calcium Level 9.1 CBC/BMP Laboratory Tests 04/13/17 08:41 Red Blood Count 4.24, Mean Corpuscular Volume 95.3, Mean Corpuscular Hemoglobin 30.4, Mean Corpuscular Hemoglobin Concent 31.9 L, Red Cell Distribution Width 15.7 H, Calcium Level 9.1 TRACIE BRITTON MD Apr 13, 2017 10:54
--- NOTE | 2017-04-13 13:26 | IPNPDOC ---
Date Seen The patient was seen on 04/13/17. Progress Note SUBJECTIVE: Patient was seen and examined at the bedside this morning. She is laying in bed on her left side. She feels as though her abdominal edema is improving. She had just finished with occupational therapy and states that it is going well. She has yet to see physical therapy. Urine output was 2300mL overnight with slight worsening of her renal function. REVIEW OF SYSTEMS: Patient denies any fever, chills, rigors. She denies any headache, chest pain, shortness of breath. Patient reports her abdominal wall edema is improving. She reported leg edema is significantly better without cramps, numbness, or tingling in upper or lower extremities. Rest of review of systems is negative. PHYSICAL EXAMINATION: GENERAL: Patient is awake, alert, oriented times three, laying in bed on her left side, morbidly obese. HEAD AND NECK EXAMINATION: Extraocular muscles intact. Pupils equally round and reactive to light. Mucous membranes are moist. Neck is supple. I could not appreciate the jugular venous distention (JVD) because of body habitus. CARDIOVASCULAR: S1, S2, irregularly irregular heart rate. She has trace edema of the right side of her abdomen; very mild trace edema appreciated on the bilateral lower extremities. RESPIRATORY: Chest is clear to auscultation bilaterally. Bilateral equal air entry. No rales or rhonchi. ABDOMEN: Soft. Obese. Positive bowel sounds. Improving edema of the abdominal wall and pannus. I could not appreciate any organomegaly. MUSCULOSKELETAL: No clubbing or cyanosis. Very mild trace edema of the bilateral lower extremities. 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 Power is 5/5 in all extremities. PSYCHIATRIC: Normal mood and affect. LABORATORY REVIEW: See below. CURRENT INPATIENT MEDICATIONS: Patient's medications were all reviewed by myself and my attending. Have decreased the dose of patient's Lasix to 60mg IV every 12 hours. Reduced the dose of potassium to 40mEq daily. ASSESSMENT: 67-year-old female with past medical history of chronic kidney disease stage III, chronic diastolic congestive heart failure, paroxysmal atrial fibrillation, and morbid obesity, admitted this time because of decompensated diastolic congestive heart failure secondary to noncompliance with her diuretic regimen. PLAN: 1. Decompensated diastolic congestive heart failure: Decreased Lasix to 60mg IV every 12 hours. Continue with Amiloride 10mg orally daily. 2. Chronic kidney disease stage III: Creatinine is 1.64. Urine output 2300mL overnight. Ordered bladder scan. Reduced Lasix to 60mg IV every 12 hours. Have ordered accurate weights to be obtained on patient. Current recorded weight today is 143.2kg. Prior recorded daily weight was 153kg. This may not be an accurate reflection of patient's current weight. Would be optimal to weigh patient on a chair/standing scale. 3. Hypokalemia: Normalized. Reduced dose to 40mEq daily. 4. Paroxysmal atrial fibrillation: Heart rate is controlled at this time. Continue current dose of metoprolol 12.5 mg by mouth twice a day, amiodarone 200 mg daily, and Pradaxa 150 mg by mouth twice a day. 5. Metabolic alkalosis: Bicarbonate level is 31. Decreased Lasix to 60mg IV every 12 hours. Continue with Amiloride. Could consider restarting Acetazolamie if bicarbonate continues to increase. 6. Morbid obesity and deconditioning: Continues to make progress with PT and OT; however, desaturates with activity, but able to recover within minutes. Continue with rehabilitation at this time. DISPOSITION: Bladder scan. Monitor urine output. Attending Addendum: Pt was seen and examined during rounds with the resident. I agree with assessment and plan. Diuretic dose being decreased. VS, I&O, 24H, Fishbone Vital Signs/I&O Vital Signs Date Time Temp Pulse Resp B/P (MAP) Pulse Ox O2 Delivery O2 Flow Rate FiO2 04/13/17 11:24 20 Nasal Cannula 04/13/17 08:28 97 101/63 04/13/17 06:00 96.4 99 2.0 I&O- Last 24 Hours up to 6 AM 04/14/17 06:00 Intake Total 180 ml Output Total 650 ml Balance -470 ml Laboratory Data 24H LABS Laboratory Tests 2 04/12/17 16:42: Bedside Glucose (Misc Panel) 131H 04/12/17 21:49: Bedside Glucose (Misc Panel) 162H 04/13/17 08:25: Bedside Glucose (Misc Panel) 176H 04/13/17 08:41: Nucleated Red Blood Cells % (auto) 0.0, Anion Gap 10, Glomerular Filtration Rate 33.3L, Blood Urea Nitrogen 45H, Creatinine 1.64H, Sodium Level 136, Potassium Level 3.9, Chloride Level 95L, Carbon Dioxide Level 31, Calcium Level 9.1 04/13/17 11:47: Bedside Glucose (Misc Panel) 138H CBC/BMP Laboratory Tests 04/13/17 08:41 Red Blood Count 4.24, Mean Corpuscular Volume 95.3, Mean Corpuscular Hemoglobin 30.4, Mean Corpuscular Hemoglobin Concent 31.9 L, Red Cell Distribution Width 15.7 H, Calcium Level 9.1 CHANELL LANCE DO Apr 13, 2017 13:26 MORGAN VERA MD Apr 14, 2017 15:36
[2017-04-13 14:00] VITALS: BP 118/49
[2017-04-13] MEDS: ATORVASTATIN 20 MG TAB PO SCH (21:37)
[2017-04-13 22:00] VITALS: BP 112/54
[2017-04-14] MEDS: SLF 3 ML SYR IV SCH ×3 (05:05→21:13)
[2017-04-14 05:44] LABS: MEAN CORPUSCULAR HEMOGLOBIN 30.3 pg (27.0-33.0); MEAN CORPUSCULAR HGB CONC 31.7 g/dl (32.0-36.5); MEAN CORPUSCULAR VOLUME 95.5 fl (80.0-96.0); PLATELET COUNT, AUTOMATED 306 10^3/uL (150-450); RED CELL DISTRIBUTION WIDTH 15.6 % (11.5-14.5); WHITE BLOOD COUNT 8.3 10^3/uL (4.0-10.0)
[2017-04-14 06:00] VITALS: BP 109/60
[2017-04-14 06:04] LABS: CALCIUM LEVEL 9.1 MG/DL (8.8-10.2); CREATININE FOR GFR 1.3 MG/DL (0.55-1.02); GLOMERULAR FILTRATION RATE 43.5 (>45); POTASSIUM SERUM 3.6 MEQ/L (3.5-5.1)
[2017-04-14] MEDS: TIOTROPIUM INHALER/CAPSULE (SPIRIVA) INH SCH (07:31)
[2017-04-14] MEDS: HumaLOG INSULIN (NovoLOG) PER UNIT SC SCH ×4 (08:53→20:39)
[2017-04-14] MEDS: METOPROLOL TART 12.5 MG PER 1/2 TAB PO SCH ×2 (08:55→20:38)
[2017-04-14] MEDS: ASPIRIN 81 MG ENTERIC TAB PO SCH (08:56)
[2017-04-14] MEDS: NORCO, ANEXSIA 5/325MG TABLET (HYDROcodone/ACETAMINOPHEN) PO PRN ×2 (08:56→21:03)
[2017-04-14] MEDS: aMILoride 5 MG TAB PO SCH (08:56)
[2017-04-14] MEDS: AMIODARONE 200 MG TAB (PACERONE) PO SCH (08:56)
[2017-04-14] MEDS: FERROUS SULFATE 325MG TAB PO SCH (08:56)
[2017-04-14] MEDS: POTASSIUM CHLORIDE 10 MEQ SR TABLET PO SCH (08:57)
[2017-04-14] MEDS: FUROSEMIDE 100 MG/10 ML VIAL (J1940) IV SCH (08:57)
[2017-04-14] MEDS: DABIGATRAN ETEXILATE 75 MG CAP (PRADAXA) PO SCH ×2 (08:57→21:02)
[2017-04-14] MEDS: ANALGESIC BALM CRM 120 GM TOP SCH ×2 (08:58→21:00)
[2017-04-14] MEDS: NYSTATIN 100,000 UNITS/GM TOPICAL PWD 15 GM TOP SCH ×2 (08:58→21:02)
[2017-04-14] MEDS: SENOKOT S TAB PO SCH ×2 (08:59→21:00)
[2017-04-14] MEDS: MIRALAX *UNIT DOSE* 17GM PACKET PO SCH (08:59)
[2017-04-14] MEDS: BISACODYL 10 MG SUPP PR SCH (09:00)
--- NOTE | 2017-04-14 11:15 | IPNPDOC ---
Subjective Date Seen The patient was seen on 04/14/17. Subjective Chief Complaint/HPI The patient is a 67-year-old female admitted with a reason for visit of CHF. Events since last encounter Patient seen and examined at bedside. States that her respiratory status is near back to baseline, and she has been able to get around better than she did before she came to the hospital. Objective Physical Examination General Exam: Positive: Alert, Cooperative, No Acute Distress ENT Exam: Positive: Atraumatic, Mucous membr. moist/pink Chest Exam: Positive: Diminished Heart Exam: Positive: Rate Normal, Irregular Rhythm Telemetry: Positive: Atrial fibrillation Abdomen Exam: Positive: Normal bowel sounds, Negative: Soft, Tenderness Extremity Exam: Positive: Edema (2+ b/l LE), Negative: Tenderness Psych Exam: Positive: Oriented x 3 Assessment /Plan Plan/VTE VTE Prophylaxis Ordered?: Yes Plan Acute decompensated diastolic heart failure Continue on Amiloride and IV Lasix as per Nephrology We will cont to supplement k and mg as needed. The patient has diuresed a net negative of +30L, and has lost +20kg according to records here Cont strict I/Os, daily weights, low salt diet, fluid restriction CKD stage 3 Serum Cr appears to be at baseline Nephrology on board Right LE Cellulitis, resolved s/p completion of Teflaro Leukocytosis, resolved. Likely combination of reactionary to acute CHF decompensation and RLE cellulitis Paroxysmal A.Fib Cont Pradaxa, amiodarone and Metoprolol NIDDM2 ISS inpatient. consistent carbs diet COPD: no acute exacerbation on 1L NC all the time at home Continue home Ventolin Chronic respiratory failure with hypoxia Continue oxygen by nasal canula Pulmonary Hypertension continue diuresis and oxygen as ordered CAD with h/o stent: stable at this point. HLD continue home med HTN continue home med GERD continue home med Right LE venous stasis ulcer: continue wound care. Morbid obesity bmi 60.5 complicating acute issues Obesity hypoventilation/ JANE: Had abnormal nocturnal pulse oximetry before. Never had a sleep study. continue on oxygen DVT prophylaxis Already on Pradaxa Deconditioning--PT has cleared the patient for discharge. Anticipate changing IV diuretic therapy to by mouth, with discharge home in the next 24-48 hours. VS, I&O, 24H, Fishbone Vital Signs/I&O Vital Signs Date Time Temp Pulse Resp B/P (MAP) Pulse Ox O2 Delivery O2 Flow Rate FiO2 04/14/17 09:40 20 04/14/17 08:55 76 119/65 04/14/17 06:00 97.2 99 Room Air 04/13/17 21:00 1.0 Laboratory Data 24H LABS Laboratory Tests 2 04/13/17 11:47: Bedside Glucose (Misc Panel) 138H 04/13/17 21:18: Bedside Glucose (Misc Panel) 214H 04/14/17 05:25: Nucleated Red Blood Cells % (auto) 0.0, Anion Gap 5L, Glomerular Filtration Rate 43.5L, Blood Urea Nitrogen 49H, Creatinine 1.30H, Sodium Level 138, Potassium Level 3.6, Chloride Level 98, Carbon Dioxide Level 35H, Calcium Level 9.1 CBC/BMP Laboratory Tests 04/14/17 05:25 Red Blood Count 3.80 L, Mean Corpuscular Volume 95.5, Mean Corpuscular Hemoglobin 30.3, Mean Corpuscular Hemoglobin Concent 31.7 L, Red Cell Distribution Width 15.6 H, Calcium Level 9.1 TRACIE BRITTON MD Apr 14, 2017 11:15
--- NOTE | 2017-04-14 13:43 | IPNPDOC ---
Date Seen The patient was seen on 04/14/17. Progress Note SUBJECTIVE: Patient was seen and examined at the bedside this morning. She is sitting up in a chair during our evaluation. States that her lower extremity and abdominal swelling is improving. Walked from the chair to the door of her hospital room yesterday with physical therapy. Also compensating well on 1L of oxygen, which is the oxygen level that she is on at home. Urine output overnight was 2820mL. Her weight has remained stable from yesterday to today. Renal function has improved. REVIEW OF SYSTEMS: Patient denies any fever, chills, rigors. She denies any headache, chest pain, shortness of breath. Patient reports her abdominal wall edema is improving. She reported leg edema is significantly better without cramps, numbness, or tingling in upper or lower extremities. Rest of review of systems is negative. PHYSICAL EXAMINATION: GENERAL: Patient is awake, alert, oriented times three, sitting up in a chair, morbidly obese. HEAD AND NECK EXAMINATION: Extraocular muscles intact. Pupils equally round and reactive to light. Mucous membranes are moist. Neck is supple. I could not appreciate the jugular venous distention (JVD) because of body habitus. CARDIOVASCULAR: S1, S2, regular heart rate and rhythm. She has trace edema of the right side of her abdomen; very mild trace edema appreciated on the bilateral lower extremities. RESPIRATORY: Chest is clear to auscultation bilaterally. Bilateral equal air entry. No rales or rhonchi. ABDOMEN: Soft. Obese. Positive bowel sounds. Improving edema of the abdominal wall and pannus. I could not appreciate any organomegaly. MUSCULOSKELETAL: No clubbing or cyanosis. Very mild trace edema of the bilateral lower extremities. CENTRAL NERVOUS SYSTEM (CLIENT PARTNER): No focal neurological deficit. Power is 5/5 in all extremities. PSYCHIATRIC: Normal mood and affect. LABORATORY REVIEW: See below. CURRENT INPATIENT MEDICATIONS: Patient's medications were all reviewed by myself and my attending. No medication changes today. Will switch patient's diuretic to oral tomorrow. ASSESSMENT: 67-year-old female with past medical history of chronic kidney disease stage III, chronic diastolic congestive heart failure, paroxysmal atrial fibrillation, and morbid obesity, admitted this time because of decompensated diastolic congestive heart failure secondary to noncompliance with her diuretic regimen. PLAN: 1. Decompensated diastolic congestive heart failure: Decreased Lasix to 60mg IV every 12 hours. Will switch patient's diuretic to oral tomorrow. Continue with Amiloride 10mg orally daily. 2. Chronic kidney disease stage III: Creatinine is 1.3. Urine output 2820mL overnight. Remains on Lasix to 60mg IV every 12 hours. Will switch patient's IV Lasix to oral tomorrow. Weight appears to have stablized at 143kg since yesterday. 3. Hypokalemia: Normalized. Remains on Potassium 40mEq daily. 4. Paroxysmal atrial fibrillation: Heart rate is controlled at this time. Continue current dose of metoprolol 12.5 mg by mouth twice a day, amiodarone 200 mg daily, and Pradaxa 150 mg by mouth twice a day. 5. Metabolic alkalosis: Bicarbonate level is 35. Remains on Lasix to 60mg IV every 12 hours. Will switch to oral Lasix tomorrow. Continue with Amiloride. Could consider restarting Acetazolamie if bicarbonate continues to increase. 6. Morbid obesity and deconditioning: Continues to make progress with PT and OT. Occupational therapy recommends continued OT and to be discharged home with services. Physical therapy recommends that patient is safe for discharge from their standpoint and also recommends home with services. Patient's oxygenation has remained stable throughout therapy sessions. DISPOSITION: Switch diuretic to oral tomorrow. Stable from a renal standpoint. [facility] Vital Signs Date Time Temp Pulse Resp B/P (MAP) Pulse Ox O2 Delivery O2 Flow Rate FiO2 04/14/17 09:40 20 04/14/17 08:55 76 119/65 04/14/17 06:00 97.2 99 Room Air 04/13/17 21:00 1.0 I&O- Last 24 Hours up to 6 AM 04/15/17 06:00 Intake Total 250 ml Output Total 150 ml Balance 100 ml Laboratory Data 24H LABS Laboratory Tests 2 04/13/17 21:18: Bedside Glucose (Misc Panel) 214H 04/14/17 05:25: Nucleated Red Blood Cells % (auto) 0.0, Anion Gap 5L, Glomerular Filtration Rate 43.5L, Blood Urea Nitrogen 49H, Creatinine 1.30H, Sodium Level 138, Potassium Level 3.6, Chloride Level 98, Carbon Dioxide Level 35H, Calcium Level 9.1 CBC/BMP Laboratory Tests 04/14/17 05:25 Red Blood Count 3.80 L, Mean Corpuscular Volume 95.5, Mean Corpuscular Hemoglobin 30.3, Mean Corpuscular Hemoglobin Concent 31.7 L, Red Cell Distribution Width 15.6 H, Calcium Level 9.1 CHANELL LANCE DO Apr 14, 2017 13:43
[2017-04-14 14:00] VITALS: BP 103/60
[2017-04-14] MEDS: TORSEMIDE 20 MG TAB PO SCH (17:25)
[2017-04-14] MEDS: ATORVASTATIN 20 MG TAB PO SCH (21:02)
[2017-04-14 22:00] VITALS: BP 108/56
[2017-04-15] MEDS: NORCO, ANEXSIA 5/325MG TABLET (HYDROcodone/ACETAMINOPHEN) PO PRN ×3 (04:50→20:57)
[2017-04-15 06:00] VITALS: BP 121/57
[2017-04-15] MEDS: SLF 3 ML SYR IV SCH (06:00)
[2017-04-15 06:14] LABS: MEAN CORPUSCULAR HEMOGLOBIN 29.9 pg (27.0-33.0); MEAN CORPUSCULAR HGB CONC 31.3 g/dl (32.0-36.5); MEAN CORPUSCULAR VOLUME 95.6 fl (80.0-96.0); PLATELET COUNT, AUTOMATED 310 10^3/uL (150-450); RED CELL DISTRIBUTION WIDTH 15.9 % (11.5-14.5); WHITE BLOOD COUNT 7.8 10^3/uL (4.0-10.0)
[2017-04-15 06:34] LABS: CALCIUM LEVEL 8.5 MG/DL (8.8-10.2); CREATININE FOR GFR 1.42 MG/DL (0.55-1.02); GLOMERULAR FILTRATION RATE 39.3 (>45); POTASSIUM SERUM 4.2 MEQ/L (3.5-5.1)
[2017-04-15] MEDS: TIOTROPIUM INHALER/CAPSULE (SPIRIVA) INH SCH (07:27)
[2017-04-15] MEDS: POTASSIUM CHLORIDE 10 MEQ SR TABLET PO SCH (08:07)
[2017-04-15] MEDS: DABIGATRAN ETEXILATE 75 MG CAP (PRADAXA) PO SCH ×2 (08:07→20:56)
[2017-04-15] MEDS: AMIODARONE 200 MG TAB (PACERONE) PO SCH (08:07)
[2017-04-15] MEDS: HumaLOG INSULIN (NovoLOG) PER UNIT SC SCH ×4 (08:07→20:49)
[2017-04-15] MEDS: aMILoride 5 MG TAB PO SCH (08:08)
[2017-04-15] MEDS: FERROUS SULFATE 325MG TAB PO SCH (08:08)
[2017-04-15] MEDS: TORSEMIDE 20 MG TAB PO SCH ×2 (08:08→17:35)
[2017-04-15] MEDS: ASPIRIN 81 MG ENTERIC TAB PO SCH (08:08)
[2017-04-15] MEDS: METOPROLOL TART 12.5 MG PER 1/2 TAB PO SCH ×2 (08:08→21:00)
[2017-04-15] MEDS: NYSTATIN 100,000 UNITS/GM TOPICAL PWD 15 GM TOP SCH ×2 (08:09→21:02)
[2017-04-15] MEDS: ANALGESIC BALM CRM 120 GM TOP SCH ×2 (08:09→21:02)
[2017-04-15] MEDS: MIRALAX *UNIT DOSE* 17GM PACKET PO SCH (08:13)
[2017-04-15] MEDS: SENOKOT S TAB PO SCH ×3 (08:13→21:00)
[2017-04-15] MEDS: BISACODYL 10 MG SUPP PR SCH (08:13)
--- NOTE | 2017-04-15 13:49 | IPNPDOC ---
Subjective Date Seen The patient was seen on 04/15/17. Subjective Chief Complaint/HPI The patient is a 67-year-old female admitted with a reason for visit of CHF. Events since last encounter Patient seen and examined at the bedside. States that she is feeling better today, and is looking forward to going home tomorrow. Objective Physical Examination General Exam: Positive: Alert, Cooperative, No Acute Distress ENT Exam: Positive: Atraumatic, Mucous membr. moist/pink Chest Exam: Positive: Diminished Heart Exam: Positive: Rate Normal, Irregular Rhythm Telemetry: Positive: Atrial fibrillation Abdomen Exam: Positive: Normal bowel sounds, Negative: Soft, Tenderness Extremity Exam: Positive: Edema (1+ b/l LE), Negative: Tenderness Psych Exam: Positive: Oriented x 3 Assessment /Plan Plan/VTE VTE Prophylaxis Ordered?: Yes Plan Acute decompensated diastolic heart failure Continue PO diuretic regimen as per Nephrology orders We will cont to supplement k and mg as needed. The patient has diuresed a net negative of +30L, and has lost +20kg according to records here Cont strict I/Os, daily weights, low salt diet, fluid restriction CKD stage 3 Serum Cr appears to be at baseline Nephrology on board Right LE Cellulitis, resolved s/p completion of Teflaro Leukocytosis, resolved. Likely combination of reactionary to acute CHF decompensation and RLE cellulitis Paroxysmal A.Fib Cont Pradaxa, amiodarone and Metoprolol NIDDM2 ISS inpatient. consistent carbs diet COPD: no acute exacerbation on 1L NC all the time at home Continue home Ventolin Chronic respiratory failure with hypoxia Continue oxygen by nasal canula Pulmonary Hypertension continue diuresis and oxygen as ordered CAD with h/o stent: stable at this point. HLD continue home med HTN continue home med GERD continue home med Right LE venous stasis ulcer: continue wound care. Morbid obesity bmi 60.5 complicating acute issues Obesity hypoventilation/ JANE: Had abnormal nocturnal pulse oximetry before. Never had a sleep study. continue on oxygen DVT prophylaxis Already on Pradaxa Deconditioning--PT has cleared the patient for discharge. Anticipate D/C tomorrow as the patient had difficulty obtaining transportation today. VS, I&O, 24H, Fishbone Vital Signs/I&O Vital Signs Date Time Temp Pulse Resp B/P (MAP) Pulse Ox O2 Delivery O2 Flow Rate FiO2 04/15/17 12:15 18 04/15/17 08:15 Nasal Cannula 1.0 04/15/17 08:08 77 121/57 04/15/17 06:00 97.2 96 I&O- Last 24 Hours up to 6 AM 04/16/17 06:00 Intake Total 520 ml Output Total 0 ml Balance 520 ml Laboratory Data 24H LABS Laboratory Tests 2 04/14/17 16:40: Bedside Glucose (Misc Panel) 173H 04/14/17 20:31: Bedside Glucose (Misc Panel) 226H 04/15/17 05:48: Nucleated Red Blood Cells % (auto) 0.0, Anion Gap 6L, Glomerular Filtration Rate 39.3L, Blood Urea Nitrogen 48H, Creatinine 1.42H, Sodium Level 139, Potassium Level 4.2, Chloride Level 103, Carbon Dioxide Level 30, Calcium Level 8.5L CBC/BMP Laboratory Tests 04/15/17 05:48 Red Blood Count 3.61 L, Mean Corpuscular Volume 95.6, Mean Corpuscular Hemoglobin 29.9, Mean Corpuscular Hemoglobin Concent 31.3 L, Red Cell Distribution Width 15.9 H, Calcium Level 8.5 L TRACIE BRITTON MD Apr 15, 2017 13:49
--- NOTE | 2017-04-15 19:41 | IPN ---
DATE: 04/15/2017 SUBJECTIVE: The patient is seen this morning sitting out of bed to the chair, comfortable, in no acute distress. She feels well and is discharge pending. VITAL SIGNS: Temperature 97.2, pulse 68, respiratory rate 16-20, blood pressure 121/57, saturating 96% on 2 liters nasal cannula. Intake and output: Oral intake yesterday 970, urine output 1500, net negative 530. Weight in the bed scale today is 143.8 kg. GENERAL: The patient is seen sitting out of bed to the chair, comfortable, in no acute distress. Extraocular muscles are intact. Her dentition is poor. Tongue is moist. Neck is supple. Cannot assess the jugular veins because of body habitus. CARDIAC: S1, S2, distant heart sounds. There is a 2+ radial pulse. There is trace edema in the lower extremities. RESPIRATORY: Symmetric and distant air entry bilaterally. She is without overt crackle or rale. ABDOMEN: Soft, obese, with significant pannus and some induration and edema in the lower part of the pannus, which is overall serially improved. MUSCULOSKELETAL: Moving all extremities without issue. No clubbing or cyanosis. NEUROLOGIC: She is at her baseline mentation. PSYCHIATRIC: Appropriate mood and affect. LABORATORY DATA: White count 7.8, hemoglobin 10.8, platelets 310. Sodium 139, potassium 4.2, BUN 48, creatinine 1.4, glucose 118. INPATIENT MEDICATIONS: The patient is on an oral diuretic regimen of metolazone 2.5 mg by mouth Sunday, Sunday, and Sunday, torsemide 20 mg by mouth twice a day, and amiloride 10 mg by mouth daily. Her remainder of medications are unchanged from prior. PROBLEMS: 1. Decompensated diastolic heart failure. The patient's volume status has significantly improved over the course of this admission with accumulative negative fluid balance of 37 liters and significant downtrend in her daily weights and clinical improvement in her edema. She is back on her home diuretic regimen of torsemide and metolazone. Her spironolactone was switched over to amiloride on this admission due to her metabolic alkalosis and she will be continued on amiloride as an outpatient. 2. Chronic kidney disease (CKD) stage III. Renal function is fairly close to baseline despite aggressive diuresis on this admission. 3. Paroxysmal atrial fibrillation. The patient continues on amiodarone, Pradaxa, and metoprolol. 4. Chronic obstructive pulmonary disease (COPD). No acute exacerbation. The patient is on oxygen at home as well and she continues on her inhalers. 5. Morbid obesity and obesity hypoventilation and obstructive sleep apnea (JANE) complicating her care. DISCHARGE PLANNING: Patient is clear for discharge from a renal point of view to continue on torsemide 20 mg by mouth twice a day, amiloride 10 mg by mouth daily, and metolazone 2.5 mg on Sunday, Sunday, and Sunday, and she will be seen within a week of discharge in the nephrology office to followup with her primary [employer] footballer, Dr. Melton.
[2017-04-15] MEDS: ATORVASTATIN 20 MG TAB PO SCH (20:56)
[2017-04-15 22:00] VITALS: BP 102/71
[2017-04-16 05:55] LABS: MEAN CORPUSCULAR HEMOGLOBIN 30.2 pg (27.0-33.0); MEAN CORPUSCULAR HGB CONC 31.1 g/dl (32.0-36.5); MEAN CORPUSCULAR VOLUME 97.3 fl (80.0-96.0); PLATELET COUNT, AUTOMATED 299 10^3/uL (150-450); RED CELL DISTRIBUTION WIDTH 16.1 % (11.5-14.5); WHITE BLOOD COUNT 6.5 10^3/uL (4.0-10.0)
[2017-04-16 06:00] VITALS: BP 147/63
[2017-04-16 06:14] LABS: CALCIUM LEVEL 8.2 MG/DL (8.8-10.2); CREATININE FOR GFR 1.36 MG/DL (0.55-1.02); GLOMERULAR FILTRATION RATE 41.3 (>45); POTASSIUM SERUM 4.3 MEQ/L (3.5-5.1)
[2017-04-16] MEDS: TIOTROPIUM INHALER/CAPSULE (SPIRIVA) INH SCH (07:25)
[2017-04-16] MEDS: aMILoride 5 MG TAB PO SCH (08:09)
[2017-04-16] MEDS: DABIGATRAN ETEXILATE 75 MG CAP (PRADAXA) PO SCH (08:09)
[2017-04-16] MEDS: POTASSIUM CHLORIDE 10 MEQ SR TABLET PO SCH (08:09)
[2017-04-16] MEDS: NORCO, ANEXSIA 5/325MG TABLET (HYDROcodone/ACETAMINOPHEN) PO PRN (08:09)
[2017-04-16 08:10] VITALS: BP 147/63
[2017-04-16] MEDS: ASPIRIN 81 MG ENTERIC TAB PO SCH (08:10)
[2017-04-16] MEDS: TORSEMIDE 20 MG TAB PO SCH (08:10)
[2017-04-16] MEDS: FERROUS SULFATE 325MG TAB PO SCH (08:10)
[2017-04-16] MEDS: AMIODARONE 200 MG TAB (PACERONE) PO SCH (08:10)
[2017-04-16] MEDS: METOPROLOL TART 12.5 MG PER 1/2 TAB PO SCH (08:10)
[2017-04-16] MEDS: ANALGESIC BALM CRM 120 GM TOP SCH (08:11)
[2017-04-16] MEDS: HumaLOG INSULIN (NovoLOG) PER UNIT SC SCH ×2 (08:12→11:41)
[2017-04-16] MEDS: NYSTATIN 100,000 UNITS/GM TOPICAL PWD 15 GM TOP SCH (08:15)
[2017-04-16] MEDS: SENOKOT S TAB PO SCH (08:15)
[2017-04-16] MEDS: MIRALAX *UNIT DOSE* 17GM PACKET PO SCH (08:15)
[2017-04-16] MEDS: BISACODYL 10 MG SUPP PR SCH (08:15)
[2017-04-16] MEDS ORDERED: metOLazone 2.5 MG TAB PO SCH ×2 (09:00)
[2017-04-16] MEDS ORDERED: AMIL5TA PO (11:04)
--- NOTE | 2017-04-16 13:08 | IPNPDOC ---
Date Seen The patient was seen on 04/16/17. Progress Note SUBJECTIVE: The patient is seen and evaluated this morning at bedside. She is out of bed and sitting in a chair. She is getting ready to be discharged from the hospital. Urine output has been adequate. Patient has been restarted on Metolazone. Renal function has improved. Patient offers no complaints at this time. VITAL SIGNS: See below. GENERAL: The patient is seen and evaluated sitting out of bed to the chair, comfortable, in no acute distress. Extraocular muscles are intact. Her dentition is poor. Tongue is moist. Neck is supple. Cannot assess the jugular veins because of body habitus. CARDIAC: S1, S2, distant heart sounds. There is a 2+ radial pulse. There is trace edema in the lower extremities. RESPIRATORY: Symmetric and distant air entry bilaterally. She is without overt crackle or rale. ABDOMEN: Soft, obese, with significant pannus and some induration and edema in the lower part of the pannus, which is overall serially improved. MUSCULOSKELETAL: Moving all extremities without issue. No clubbing or cyanosis. NEUROLOGIC: She is at her baseline mentation. PSYCHIATRIC: Appropriate mood and affect. LABORATORY DATA: See below. INPATIENT MEDICATIONS: The patient is on an oral diuretic regimen of metolazone 2.5 mg by mouth Sunday, Sunday, and Sunday, torsemide 20 mg by mouth twice a day, and amiloride 10 mg by mouth daily. Her remainder of medications are unchanged from prior. PROBLEMS: 1. Decompensated diastolic heart failure: The patient's volume status has significantly improved over the course of this admission with accumulative negative fluid balance of 38 liters and significant downtrend in her daily weights and clinical improvement in her edema. Weight at time of discharge is 146kg. She is back on her home diuretic regimen of torsemide and metolazone. Her spironolactone was switched over to amiloride on this admission due to her metabolic alkalosis and she will be continued on amiloride as an outpatient. 2. Chronic kidney disease (CKD) stage III: Renal function is fairly close to baseline despite aggressive diuresis on this admission. Creatinine is 1.36. 3. Paroxysmal atrial fibrillation: The patient continues on amiodarone, Pradaxa, and metoprolol. 4. Chronic obstructive pulmonary disease (COPD): No acute exacerbation. The patient is on oxygen at home as well and she continues on her inhalers. 5. Morbid obesity and obesity hypoventilation and obstructive sleep apnea (JANE ) complicating her care. DISCHARGE PLANNING: Patient is stable from a renal standpoint. Continue with Torsemide 20mg by mouth twice a day, Amiloride 10mg by mouth daily, and Metolazone 2.5mg Sunday, Sunday, Sunday. Recommend follow-up in the nephrology in one week. VS, I&O, 24H, Fishbone Vital Signs/I&O Vital Signs Date Time Temp Pulse Resp B/P (MAP) Pulse Ox O2 Delivery O2 Flow Rate FiO2 04/16/17 09:00 Nasal Cannula 1.0 04/16/17 08:39 18 04/16/17 08:10 83 147/63 04/16/17 06:00 97.0 93 I&O- Last 24 Hours up to 6 AM 04/17/17 06:00 Intake Total 780 ml Output Total 800 ml Balance -20 ml Laboratory Data 24H LABS Laboratory Tests 2 04/15/17 20:26: Bedside Glucose (Misc Panel) 195H 04/16/17 05:29: Nucleated Red Blood Cells % (auto) 0.0, Anion Gap 7L, Glomerular Filtration Rate 41.3L, Blood Urea Nitrogen 48H, Creatinine 1.36H, Sodium Level 140, Potassium Level 4.3, Chloride Level 104, Carbon Dioxide Level 29, Calcium Level 8.2L 04/16/17 11:14: Bedside Glucose (Misc Panel) 150H CBC/BMP Laboratory Tests 04/16/17 05:29 Red Blood Count 3.64 L, Mean Corpuscular Volume 97.3 H, Mean Corpuscular Hemoglobin 30.2, Mean Corpuscular Hemoglobin Concent 31.1 L, Red Cell Distribution Width 16.1 H, Calcium Level 8.2 L CHANELL LANCE DO Apr 16, 2017 13:08
--- NOTE | 2017-04-16 14:44 | DS.PDOC ---
Discharge Summary General Date of Admission Mar 31, 2017 at 18:02 Date of Discharge 04/16/17 Specialist/Consultants Involve Dr. Osuna, Dr. Melton of Nephrology Discharge Summary PROCEDURES PERFORMED DURING STAY: None. ADMITTING/DISCHARGE DIAGNOSES: Acute decompensated diastolic heart failure Right LE Cellulitis CKD stage 3 Paroxysmal A.Fib COPD COMPLICATIONS/CHIEF COMPLAINT: CHF. HISTORY OF PRESENT ILLNESS: . 67-year-old female with past medical history of diastolic CHF, paroxysmal A. fib on Pradaxa, HLD, HTN, NIDDM 2, COPD 1L NC, CAD s/p stents x, and CKD presented to the ER with the chief complaint of focal the ablating due to aggressive bilateral leg swelling and associated shortness of breath. The patient stated that she had a 20 pound weight gain over the past few weeks and had worsening orthopnea, and paroxysmal nocturnal dyspnea. In addition, the patient also stated that she felt increased tenderness, on the skin of her right lower extremity. The patient was admitted to the hospital service for further evaluation and management. During hospitalization, the patient was initiated on an aggressive IV diuretic regimen with assistance of nephrology given her underlying chronic kidney disease. The patient has diuresed over a net negative of 30 L, and has lost over 20 kg since being hospitalized. In addition, the patient was treated with a trial of teflaro for her right lower extremity cellulitis. At this time, the patient states that she is feeling much better and is eager to return home. The patient has been switched back to her by mouth diuretic regimen. In addition, the patient was evaluated by physical therapy and has returned to her baseline level of functioning. At this time, the patient will be discharged with recommendation to follow-up with her primary care physician and nephrology within 7 days. Follow with cardiology in 1-2 weeks. In addition, the patient has been advised to take her medications as prescribed. Lastly the patient has been consulted to return to the ER for any acute emergencies. DISCHARGE MEDICATIONS: Please see below. ALLERGIES: Please see below. PHYSICAL EXAMINATION ON DISCHARGE: VITAL SIGNS: Please see below. General Exam: Positive: Alert, Cooperative, No Acute Distress ENT Exam: Positive: Atraumatic, Mucous membr. moist/pink Chest Exam: Positive: Diminished Heart Exam: Positive: Rate Normal, Irregular Rhythm Telemetry: Positive: Atrial fibrillation Abdomen Exam: Positive: Normal bowel sounds, Negative: Soft, Tenderness Extremity Exam: Positive: Edema (1+ b/l LE), Negative: Tenderness Psych Exam: Positive: Oriented x 3 LABORATORY DATA: Please see below. IMAGING: Chest two views HISTORY: Dyspnea Comparison: 02/01/2017 The radiographs are underpenetrated. An increase in interstitial markings is present in the lungs consistent with chronic interstitial change. The cardiac silhouette is enlarged. The pulmonary vasculature is normal in appearance. The bony structure is intact. IMPRESSION: 1. Limited examination demonstrating chronic interstitial change. Superimposed edema cannot be excluded. 2. Cardiomegaly. PROGNOSIS: Fair ACTIVITY: As tolerated. DIET: . 2 g low sodium diet, 1800 mL fluid restriction DISCHARGE PLAN: DISPOSITION: Home, Self-Care. DISCHARGE INSTRUCTIONS: At this time, the patient will be discharged with recommendation to follow-up with her primary care physician and nephrology within 7 days. Follow with cardiology in 1-2 weeks. In addition, the patient has been advised to take her medications as prescribed. Lastly the patient has been consulted to return to the ER for any acute emergencies. DISCHARGE CONDITION: Stable. TIME SPENT ON DISCHARGE: Greater than 30 minutes. Vital Signs/I&Os Vital Signs Date Time Temp Pulse Resp B/P (MAP) Pulse Ox O2 Delivery O2 Flow Rate FiO2 04/16/17 09:00 Nasal Cannula 1.0 04/16/17 08:39 18 04/16/17 08:10 83 147/63 04/16/17 06:00 97.0 93 I&O- Last 24 Hours up to 6 AM 04/17/17 06:00 Intake Total 780 ml Output Total 800 ml Balance -20 ml Laboratory Data Labs 24H Laboratory Tests 2 04/15/17 20:26: Bedside Glucose (Misc Panel) 195H 04/16/17 05:29: Nucleated Red Blood Cells % (auto) 0.0, Anion Gap 7L, Glomerular Filtration Rate 41.3L, Blood Urea Nitrogen 48H, Creatinine 1.36H, Sodium Level 140, Potassium Level 4.3, Chloride Level 104, Carbon Dioxide Level 29, Calcium Level 8.2L 04/16/17 11:14: Bedside Glucose (Misc Panel) 150H CBC/BMP Laboratory Tests 04/16/17 05:29 Red Blood Count 3.64 L, Mean Corpuscular Volume 97.3 H, Mean Corpuscular Hemoglobin 30.2, Mean Corpuscular Hemoglobin Concent 31.1 L, Red Cell Distribution Width 16.1 H, Calcium Level 8.2 L FSBS Laboratory Tests Test 04/15/17 20:26 04/16/17 11:14 Range/Units Bedside Glucose (Misc Panel) 195 150 80-115 MG/DL Discharge Medications Scheduled Amiloride HCl (Amiloride HCl) 5 Mg Tab, 10 MG PO DAILY Amiodarone HCl (Amiodarone HCl) 200 Mg Tab, 200 MG PO DAILY, (Reported) Aspirin (Aspirin 81) 81 Mg Tab, 81 MG PO DAILY, (Reported) Atorvastatin Calcium (Atorvastatin Calcium) 40 Mg Tab, 40 MG PO QHS, (Reported) Dabigatran Etexilate (Pradaxa) 150 Mg Cap, 150 MG PO BID, (Reported) Ferrous Sulfate (Ferrous Sulfate) 325 Mg Tab, 325 MG PO DAILY, (Reported) Fluticasone/Vilanterol (Breo Ellipta 200-25 Mcg/INH) 1 Inh Inh, 1 PUFF INH DAILY , (Reported) Fluticasone/Vilanterol (Breo Ellipta 200-25 Mcg/INH) 1 Inh Inh, 1 PUFF INH DAILY , (Reported) Metformin Hydrochloride (Metformin HCl) 500 Mg Tab, 500 MG PO BID, (Reported) Metolazone (Metolazone) 2.5 Mg Tab, 2.5 MG PO 3XW, (Reported) SUN, SUN, SUN Metoprolol Tartrate (Metoprolol Tartrate) 25 Mg Tab, 12.5 MG PO BID, (Reported) Multivitamins *[facility] STOCKED* (Thera M Plus *[facility] STOCKED*) 1 Tab Tab, 1 TAB PO DAILY, (Reported) Nystatin (Nystatin Powder) 100,000 Unit/Gm Pow, 1 DOSE TOP BID, (Reported) APPLY TO ABDOMINAL FOLDS Potassium Chloride (Klor-Con M20) 20 Meq Tabcr, 20 MEQ PO BID, (Reported) Tiotropium [place] Monohydrate (Spiriva Handihaler) 18 Mcg Cap, 1 INHALATION INH DAILY, (Reported) Torsemide (Torsemide) 20 Mg Tab, 20 MG PO BID, (Reported) Scheduled PRN Acetaminophen (Acetaminophen Extra Stren) 500 Mg Tab, 500 MG PO QID PRN for PAIN OR FEVER, (Reported) Acetaminophen/Hydrocodone (Hydrocodone/Acetaminophen 5-325 mg) 1 Tab Tab, 1 TAB PO TID PRN for PAIN, (Reported) Albuterol Sulfate (Ventolin Hfa) 200 Puff/8 Gm Aers, 2 PUFF INH Q4H PRN for SHORTNESS OF BREATH, (Reported) Albuterol Sulfate (Ventolin Hfa) 108 Mcg/Act Aer, 108 MCG PO Q4H PRN for SHORTNESS OF BREATH, (Reported) Docusate Sodium (Colace) 100 Mg Cap, 100 MG PO DAILY PRN for CONSTIPATION, ( Reported) Loratadine (Loratadine) 10 Mg Tab, 10 MG PO DAILY PRN for ALLERGIES, (Reported) Senna (Senna Lax) 8.6 Mg Tab, 1 TAB PO BID PRN for CONSTIPATION, (Reported) Allergies Coded Allergies: Sulfa Drugs (Verified Allergy, Unknown, QUESTIONABLE- PARENTS TOLD HER SHE WAS ALLERGIC???, 04/14/16) Sulfa Drugs Cross Reactors (Verified Allergy, Unknown, 08/02/12) Heparin (Verified Adverse Reaction, Intermediate, HIT, 10/07/15) TRACIE BRITTON MD Apr 16, 2017 14:44
== END 2017-04-16 12:37 | disposition home or self-care (01) | DRG 291 ==
LOC: EDBD 14:43 → M ED 14:43 → M ED INP 18:02 → M PCU 20:29 → M MSPAV 04-05 07:48
PROVIDERS: ADMIT Internal Medicine; ATTEND Internal Medicine
DX: I13.0 Hypertensive heart and chronic kidney disease with heart failure and stage 1 through stage 4 chronic kidney disease, or unspecified chronic kidney disease (principal); I50.33 Acute on chronic diastolic (congestive) heart failure; Z68.44 Body mass index [BMI] 60.0-69.9, adult; E87.3 Alkalosis; J96.11 Chronic respiratory failure with hypoxia; L03.115 Cellulitis of right lower limb; L97.819 Non-pressure chronic ulcer of other part of right lower leg with unspecified severity; N18.3 Chronic kidney disease, stage 3 (moderate); E66.01 Morbid (severe) obesity due to excess calories; I83.018 Varicose veins of right lower extremity with ulcer other part of lower leg; I48.0 Paroxysmal atrial fibrillation; K21.9 Gastro-esophageal reflux disease without esophagitis; E87.6 Hypokalemia; E78.5 Hyperlipidemia, unspecified; E11.9 Type 2 diabetes mellitus without complications; J44.9 Chronic obstructive pulmonary disease, unspecified; Z99.81 Dependence on supplemental oxygen; I25.10 Atherosclerotic heart disease of native coronary artery without angina pectoris; Z95.9 Presence of cardiac and vascular implant and graft, unspecified; Z79.82 Long term (current) use of aspirin; Z79.01 Long term (current) use of anticoagulants; Z79.84 Long term (current) use of oral hypoglycemic drugs; Z79.899 Other long term (current) drug therapy; Z88.2 Allergy status to sulfonamides; Z88.8 Allergy status to other drugs, medicaments and biological substances; Z91.14 Patient's other noncompliance with medication regimen

== ENCOUNTER → 2017-05-09 | Outpatient (REF) | payer OTHER ==
[2017-05-09 16:14] LABS: APPEARANCE, URINE CLEAR (CLEAR); BACTERIA, URINE AUTO 1+ (NEGATIVE); BILIRUBIN, URINE AUTO NEGATIVE (NEGATIVE); BLOOD, URINE BLOOD NEGATIVE (NEGATIVE); COLOR, URINE YELLOW (YELLOW); GLUCOSE, URINE (UA) AUTO NEGATIVE (NEGATIVE); KETONE, URINE AUTO NEGATIVE (NEGATIVE); LEUKOCYTE ESTERASE, URINE AUTO NEGATIVE (NEGATIVE); NITRITE, URINE AUTO NEGATIVE (NEGATIVE); PROTEIN, URINE AUTO NEGATIVE (NEGATIVE); RBC, URINE AUTO 7 /HPF (0-3); SPECIFIC GRAVITY URINE AUTO 1.011 (1.002-1.035); SQUAMOUS EPITHELIAL CELL UR AU 1 /HPF (0-6); WBC, URINE AUTO 1 /HPF (0-3)
== END ==
LOC: M SFHCPLAZ 15:32
DX: R82.90 Unspecified abnormal findings in urine (principal)
CPT/HCPCS: 81001

== ENCOUNTER 2017-10-21 15:42 | Emergency (ER) | payer OTHER ==
[2017-10-21 16:28] LABS: BASO % 0.3 % (0.0-1.0); EOS # 0.1 10^3/uL (0.0-0.50); EOS % 1.3 % (0.0-3.0); HEMATOCRIT 40.6 % (36.0-47.0); HEMOGLOBIN 13.1 g/dl (12.0-15.5); IMMATURE GRANULOCYTE % 0.4 % (0-3.0); LYMPH # 0.6 10^3/uL (1.5-4.5); LYMPH % 8.5 % (24.0-44.0); MEAN CORPUSCULAR HEMOGLOBIN 31.3 pg (27.0-33.0); MEAN CORPUSCULAR HGB CONC 32.3 g/dl (32.0-36.5); MEAN CORPUSCULAR VOLUME 97.1 fl (80.0-96.0); MONO # 0.6 10^3/uL (0.0-0.8); MONO % 8.1 % (0.0-5.0); NEUTROPHILS # 5.8 10^3/uL (1.8-7.7); NEUTROPHILS % 81.4 % (36.0-66.0); PLATELET COUNT, AUTOMATED 216 10^3/uL (150-450); RED BLOOD COUNT 4.18 10^6/uL (4.00-5.40); RED CELL DISTRIBUTION WIDTH 16.1 % (11.5-14.5); WHITE BLOOD COUNT 7.2 10^3/uL (4.0-10.0)
[2017-10-21 16:40] LABS: INR 1.96
[2017-10-21 17:13] LABS: ALBUMIN 3.1 GM/DL (3.2-5.2); ALKALINE PHOSPHATASE 97 U/L (45-117); ALT/SGPT 14 U/L (12-78); ANION GAP 4 MEQ/L (8-16); AST/SGOT 10 U/L (7-37); BILIRUBIN,DIRECT 0.3 MG/DL (0.0-0.2); BLOOD UREA NITROGEN 24 MG/DL (7-18); CALCIUM LEVEL 8.7 MG/DL (8.8-10.2); CARBON DIOXIDE LEVEL 33 MEQ/L (21-32); CHLORIDE LEVEL 103 MEQ/L (98-107); CPK CREATINE PHOSPHOKINASE 33 U/L (26-192); CREATININE FOR GFR 1.43 MG/DL (0.55-1.30); GLUCOSE, FASTING 107 MG/DL (70-100); POTASSIUM SERUM 4.1 MEQ/L (3.5-5.1); SODIUM LEVEL 140 MEQ/L (136-145); TOTAL PROTEIN 7.5 GM/DL (6.4-8.2); TROPONIN I 0.02 NG/ML (< 0.10)
[2017-10-21 17:14] LABS: LACTIC ACID SEPSIS PROTOCOL 1.3 MMOL/L (0.4-2.0)
[2017-10-21 17:19] LABS: CK-MB VALUE MASS 1.2 NG/ML (<3.6); MB/CK RELATIVE INDEX 3.63 (< OR =4); NT-PRO BNP 2012 PG/ML (<125)
[2017-10-21 17:38] LABS: FREE THYROXINE INDEX 3.2 % (1.3-4.8); T UPTAKE 37 % (30-39); THYROXINE (T4) 8.6 UG/DL (4.5-12.0)
[2017-10-21] MEDS: IPRATROPIUM 0.5MG/ALBUTEROL 2.5MG INH SOL UD 3ML (DUONEB)(J7620) NEB (17:54)
[2017-10-21] MEDS: PERCOCET 5MG/325MG TAB PO (19:44)
[2017-10-21] MEDS: OXYCODONE/APAP 5MG/325MG(BULK FOR ED) 1 TABLET PO (21:45)
== END 2017-10-21 23:33 | disposition home or self-care (01) ==
LOC: M ED 15:42
DX: M79.606 Pain in leg, unspecified (principal); M25.511 Pain in right shoulder; I51.7 Cardiomegaly; I48.91 Unspecified atrial fibrillation; I45.10 Unspecified right bundle-branch block; R94.31 Abnormal electrocardiogram [ECG] [EKG]; I50.9 Heart failure, unspecified; I25.10 Atherosclerotic heart disease of native coronary artery without angina pectoris; E11.9 Type 2 diabetes mellitus without complications; I12.9 Hypertensive chronic kidney disease with stage 1 through stage 4 chronic kidney disease, or unspecified chronic kidney disease; N18.9 Chronic kidney disease, unspecified; J44.9 Chronic obstructive pulmonary disease, unspecified; Z79.01 Long term (current) use of anticoagulants; Z95.5 Presence of coronary angioplasty implant and graft; Z88.8 Allergy status to other drugs, medicaments and biological substances; Z88.2 Allergy status to sulfonamides; Z79.899 Other long term (current) drug therapy; Z79.82 Long term (current) use of aspirin; Z79.84 Long term (current) use of oral hypoglycemic drugs
CPT/HCPCS: 71046

== ENCOUNTER 2017-12-01 07:32 | Inpatient (IN) | payer OTHER ==
[2017-12-01] MEDS ORDERED: ASPIRIN 81 MG CHEW TABLET As Ordered (08:05)
[2017-12-01] MEDS: ASPIRIN 81 MG CHEW TABLET PO (08:08)
[2017-12-01] MEDS: FUROSEMIDE 40 MG/4 ML VIAL (J1940) IV ×3 (08:08→17:59)
[2017-12-01 08:39] LABS: BASO % 0.5 % (0.0-1.0); EOS # 0.2 10^3/uL (0.0-0.50); EOS % 2.5 % (0.0-3.0); HEMATOCRIT 41.3 % (36.0-47.0); HEMOGLOBIN 12.8 g/dl (12.0-15.5); IMMATURE GRANULOCYTE % 0.4 % (0-3.0); LYMPH # 0.7 10^3/uL (1.5-4.5); LYMPH % 9.1 % (24.0-44.0); MEAN CORPUSCULAR HEMOGLOBIN 31.1 pg (27.0-33.0); MEAN CORPUSCULAR VOLUME 100.5 fl (80.0-96.0); MONO # 0.8 10^3/uL (0.0-0.8); MONO % 10.5 % (0.0-5.0); NEUTROPHILS # 6.1 10^3/uL (1.8-7.7); PLATELET COUNT, AUTOMATED 244 10^3/uL (150-450); RED BLOOD COUNT 4.11 10^6/uL (4.00-5.40); RED CELL DISTRIBUTION WIDTH 16.3 % (11.5-14.5)
[2017-12-01 08:47] LABS: ABG BASE EXCESS 4.7 (-2.0-2.0); ABG HCO3 29.1 MEQ/L (22.0-26.0); ABG O2 SATURATION 93.8 % (95.0-99.0); ABG PARTIAL PRESSURE CO2 42.2 mmHg (35.0-45.0); ABG STANDARD HCO3 28.6 MEQ/L (22.0-26.0); ABG TOTAL CO2 30.4 MEQ/L (23.0-31.0); ABG pH (ARTERIAL) 7.456 UNITS (7.350-7.450)
[2017-12-01] MEDS: IPRATROPIUM 0.5MG/ALBUTEROL 2.5MG INH SOL UD 3ML (DUONEB)(J7620) NEB (08:48)
[2017-12-01 08:50] LABS: INR 1.57
[2017-12-01 08:51] LABS: PARTIAL THROMBOPLASTIN TIME 77.1 SECONDS (25.4-37.6)
[2017-12-01 09:02] LABS: ALBUMIN 3.5 GM/DL (3.2-5.2); ALBUMIN/GLOBULIN RATIO 0.76 (1.00-1.93); ALKALINE PHOSPHATASE 89 U/L (45-117); ALT/SGPT 17 U/L (12-78); ANION GAP 8 MEQ/L (8-16); AST/SGOT 13 U/L (7-37); BILIRUBIN,DIRECT 0.3 MG/DL (0.0-0.2); BILIRUBIN,TOTAL 0.8 MG/DL (0.2-1.0); BLOOD UREA NITROGEN 25 MG/DL (7-18); CARBON DIOXIDE LEVEL 30 MEQ/L (21-32); CHLORIDE LEVEL 102 MEQ/L (98-107); CPK CREATINE PHOSPHOKINASE 41 U/L (26-192); CREATININE FOR GFR 1.65 MG/DL (0.55-1.30); FREE T4 0.64 NG/DL (0.76-1.46); GLUCOSE, FASTING 118 MG/DL (70-100); POTASSIUM SERUM 3.8 MEQ/L (3.5-5.1); SODIUM LEVEL 140 MEQ/L (136-145); TOTAL PROTEIN 8.1 GM/DL (6.4-8.2); TROPONIN I 0.03 NG/ML (< 0.10)
[2017-12-01 09:08] LABS: CK-MB VALUE MASS 1.1 NG/ML (<3.6); MB/CK RELATIVE INDEX 2.68 (< OR =4); NT-PRO BNP 3488 PG/ML (<125)
[2017-12-01] MEDS ORDERED: ONDANSETRON 4 MG TAB (S0181) PO (10:15)
[2017-12-01] MEDS ORDERED: GLUCAGON FOR INJ 1 MG VIAL (J1610) SC (10:15)
[2017-12-01] MEDS ORDERED: ACETAMINOPHEN TAB 650MG DOSE (2X325MG) PO (10:15)
[2017-12-01] MEDS ORDERED: DEXTROSE 50% 50 ML SYRINGE IV (10:15)
[2017-12-01] MEDS ORDERED: GLUCOSE 4 GM CHEW TABLET PO (10:15)
[2017-12-01 13:21] LABS: BEDSIDE GLUCOSE 273 MG/DL (80-115)
[2017-12-01] MEDS: MULTIVITAMINS/MINERALS THERAP 1 TAB PO (13:25)
[2017-12-01] MEDS: LORATADINE 10 MG TAB PO (13:25)
[2017-12-01] MEDS: HumaLOG INSULIN (NovoLOG) PER UNIT SC ×3 (13:32→20:10)
[2017-12-01 16:19] LABS: CPK CREATINE PHOSPHOKINASE 51 U/L (26-192); MAGNESIUM LEVEL 2.2 MG/DL (1.8-2.4); TROPONIN I 0.03 NG/ML (< 0.10)
[2017-12-01 16:20] LABS: CK-MB VALUE MASS < 1.0 NG/ML (<3.6); MB/CK RELATIVE INDEX 1.96 (< OR =4)
[2017-12-01 17:58] LABS: BEDSIDE GLUCOSE 111 MG/DL (80-115)
[2017-12-01 20:02] LABS: BEDSIDE GLUCOSE 140 MG/DL (80-115)
[2017-12-01] MEDS: DABIGATRAN ETEXILATE 75 MG CAP (PRADAXA) PO (20:09)
[2017-12-01] MEDS: METOPROLOL TART 12.5 MG PER 1/2 TAB PO (20:09)
[2017-12-01] MEDS: NORCO, ANEXSIA 5/325MG TABLET (HYDROcodone/ACETAMINOPHEN) PO (20:10)
[2017-12-01] MEDS: ATORVASTATIN 20 MG TAB PO (20:10)
[2017-12-01] MEDS: NYSTATIN 100,000 UNITS/GM TOPICAL PWD 15 GM TOP (20:11)
[2017-12-02] MEDS: FUROSEMIDE 40 MG/4 ML VIAL (J1940) IV ×4 (00:25→18:00)
[2017-12-02] MEDS: NORCO, ANEXSIA 5/325MG TABLET (HYDROcodone/ACETAMINOPHEN) PO ×2 (04:47→18:05)
[2017-12-02 05:11] LABS: HEMATOCRIT 38.6 % (36.0-47.0); HEMOGLOBIN 11.7 g/dl (12.0-15.5); MEAN CORPUSCULAR HEMOGLOBIN 30.5 pg (27.0-33.0); MEAN CORPUSCULAR HGB CONC 30.3 g/dl (32.0-36.5); MEAN CORPUSCULAR VOLUME 100.5 fl (80.0-96.0); PLATELET COUNT, AUTOMATED 217 10^3/uL (150-450); RED BLOOD COUNT 3.84 10^6/uL (4.00-5.40); WHITE BLOOD COUNT 7.3 10^3/uL (4.0-10.0)
[2017-12-02 05:28] LABS: ANION GAP 5 MEQ/L (8-16); BLOOD UREA NITROGEN 23 MG/DL (7-18); CALCIUM LEVEL 8.7 MG/DL (8.8-10.2); CARBON DIOXIDE LEVEL 36 MEQ/L (21-32); CHLORIDE LEVEL 102 MEQ/L (98-107); CREATININE FOR GFR 1.58 MG/DL (0.55-1.30); GLOMERULAR FILTRATION RATE 34.7 (>45); GLUCOSE, FASTING 119 MG/DL (70-100); MAGNESIUM LEVEL 2.2 MG/DL (1.8-2.4); POTASSIUM SERUM 3.7 MEQ/L (3.5-5.1); SODIUM LEVEL 143 MEQ/L (136-145)
[2017-12-02] MEDS: LEVOTHYROXINE 25MCG TABLET (0.025MG) PO (06:08)
[2017-12-02 08:25] LABS: BEDSIDE GLUCOSE 176 MG/DL (80-115)
[2017-12-02] MEDS: DABIGATRAN ETEXILATE 75 MG CAP (PRADAXA) PO ×2 (08:36→20:15)
[2017-12-02] MEDS: HumaLOG INSULIN (NovoLOG) PER UNIT SC ×4 (08:36→20:15)
[2017-12-02] MEDS: MULTIVITAMINS/MINERALS THERAP 1 TAB PO (08:36)
[2017-12-02] MEDS: METOPROLOL TART 12.5 MG PER 1/2 TAB PO ×2 (08:37→20:15)
[2017-12-02] MEDS: metOLazone 2.5 MG TAB PO (08:37)
[2017-12-02] MEDS: LORATADINE 10 MG TAB PO (08:37)
[2017-12-02] MEDS: ASPIRIN 81 MG ENTERIC TAB PO (08:37)
[2017-12-02] MEDS: NYSTATIN 100,000 UNITS/GM TOPICAL PWD 15 GM TOP ×2 (08:38→20:16)
[2017-12-02 12:21] LABS: BEDSIDE GLUCOSE 102 MG/DL (80-115)
[2017-12-02] MEDS: POTASSIUM CHLORIDE 10 MEQ SR TABLET PO (12:26)
[2017-12-02] MEDS: ALBUTEROL SULFATE 2.5 MG/0.5 ML INH NEB SOLN NEB (16:13)
[2017-12-02 17:57] LABS: BEDSIDE GLUCOSE 108 MG/DL (80-115)
[2017-12-02 20:15] LABS: BEDSIDE GLUCOSE 133 MG/DL (80-115)
[2017-12-02] MEDS: ATORVASTATIN 20 MG TAB PO (20:15)
[2017-12-03] MEDS: FUROSEMIDE 40 MG/4 ML VIAL (J1940) IV ×4 (00:14→17:42)
[2017-12-03] MEDS: NORCO, ANEXSIA 5/325MG TABLET (HYDROcodone/ACETAMINOPHEN) PO ×3 (02:09→18:11)
[2017-12-03 05:28] LABS: HEMATOCRIT 35.7 % (36.0-47.0); MEAN CORPUSCULAR HEMOGLOBIN 30.6 pg (27.0-33.0); MEAN CORPUSCULAR HGB CONC 30.8 g/dl (32.0-36.5); MEAN CORPUSCULAR VOLUME 99.4 fl (80.0-96.0); PLATELET COUNT, AUTOMATED 205 10^3/uL (150-450); RED BLOOD COUNT 3.59 10^6/uL (4.00-5.40); RED CELL DISTRIBUTION WIDTH 15.9 % (11.5-14.5); WHITE BLOOD COUNT 7.3 10^3/uL (4.0-10.0)
[2017-12-03 05:42] LABS: ANION GAP 4 MEQ/L (8-16); BLOOD UREA NITROGEN 26 MG/DL (7-18); CALCIUM LEVEL 8.2 MG/DL (8.8-10.2); CARBON DIOXIDE LEVEL 38 MEQ/L (21-32); CHLORIDE LEVEL 100 MEQ/L (98-107); CREATININE FOR GFR 1.53 MG/DL (0.55-1.30); GLUCOSE, FASTING 118 MG/DL (70-100); MAGNESIUM LEVEL 2.2 MG/DL (1.8-2.4); POTASSIUM SERUM 3.3 MEQ/L (3.5-5.1); SODIUM LEVEL 142 MEQ/L (136-145)
[2017-12-03] MEDS: LEVOTHYROXINE 25MCG TABLET (0.025MG) PO (06:30)
[2017-12-03] MEDS: DABIGATRAN ETEXILATE 75 MG CAP (PRADAXA) PO ×2 (08:04→20:19)
[2017-12-03] MEDS: HumaLOG INSULIN (NovoLOG) PER UNIT SC ×4 (08:04→20:20)
[2017-12-03] MEDS: AMIODARONE 200 MG TAB (PACERONE) PO (08:08)
[2017-12-03] MEDS: POTASSIUM CHLORIDE 10 MEQ SR TABLET PO ×2 (08:08→20:20)
[2017-12-03] MEDS: metOLazone 2.5 MG TAB PO (08:09)
[2017-12-03] MEDS: ASPIRIN 81 MG ENTERIC TAB PO (08:09)
[2017-12-03] MEDS: LORATADINE 10 MG TAB PO (08:09)
[2017-12-03] MEDS: MULTIVITAMINS/MINERALS THERAP 1 TAB PO (08:09)
[2017-12-03] MEDS: METOPROLOL TART 12.5 MG PER 1/2 TAB PO ×2 (08:10→20:20)
[2017-12-03] MEDS: KCL 10MEQ/100ML SWI (KRUN) 10 MEQ in APPROPRIATE DILUENT 1 EA IV (08:11)
[2017-12-03] MEDS: NYSTATIN 100,000 UNITS/GM TOPICAL PWD 15 GM TOP ×2 (08:12→20:21)
[2017-12-03 11:39] LABS: BEDSIDE GLUCOSE 131 MG/DL (80-115)
[2017-12-03 16:52] LABS: BEDSIDE GLUCOSE 132 MG/DL (80-115)
[2017-12-03 20:01] LABS: BEDSIDE GLUCOSE 132 MG/DL (80-115)
[2017-12-03] MEDS: ATORVASTATIN 20 MG TAB PO (20:20)
[2017-12-04] MEDS: FUROSEMIDE 40 MG/4 ML VIAL (J1940) IV ×4 (00:02→17:54)
[2017-12-04] MEDS: NORCO, ANEXSIA 5/325MG TABLET (HYDROcodone/ACETAMINOPHEN) PO ×3 (02:22→20:29)
[2017-12-04 05:33] LABS: HEMATOCRIT 35.4 % (36.0-47.0); HEMOGLOBIN 10.9 g/dl (12.0-15.5); MEAN CORPUSCULAR HEMOGLOBIN 30.6 pg (27.0-33.0); MEAN CORPUSCULAR HGB CONC 30.8 g/dl (32.0-36.5); MEAN CORPUSCULAR VOLUME 99.4 fl (80.0-96.0); PLATELET COUNT, AUTOMATED 196 10^3/uL (150-450); RED BLOOD COUNT 3.56 10^6/uL (4.00-5.40); RED CELL DISTRIBUTION WIDTH 15.9 % (11.5-14.5); WHITE BLOOD COUNT 7.3 10^3/uL (4.0-10.0)
[2017-12-04] MEDS: LEVOTHYROXINE 25MCG TABLET (0.025MG) PO (05:53)
[2017-12-04 06:39] LABS: ANION GAP 8 MEQ/L (8-16); BLOOD UREA NITROGEN 33 MG/DL (7-18); CALCIUM LEVEL 8.3 MG/DL (8.8-10.2); CARBON DIOXIDE LEVEL 37 MEQ/L (21-32); CHLORIDE LEVEL 98 MEQ/L (98-107); CREATININE FOR GFR 1.64 MG/DL (0.55-1.30); GLOMERULAR FILTRATION RATE 33.3 (>45); GLUCOSE, FASTING 117 MG/DL (70-100); MAGNESIUM LEVEL 2.4 MG/DL (1.8-2.4); POTASSIUM SERUM 3.4 MEQ/L (3.5-5.1); SODIUM LEVEL 143 MEQ/L (136-145)
[2017-12-04] MEDS: HumaLOG INSULIN (NovoLOG) PER UNIT SC ×4 (07:36→20:31)
[2017-12-04] MEDS: ALBUTEROL SULFATE 2.5 MG/0.5 ML INH NEB SOLN NEB (08:06)
[2017-12-04] MEDS: DABIGATRAN ETEXILATE 75 MG CAP (PRADAXA) PO ×2 (08:37→20:29)
[2017-12-04] MEDS: MULTIVITAMINS/MINERALS THERAP 1 TAB PO (08:38)
[2017-12-04] MEDS: POTASSIUM CHLORIDE 10 MEQ SR TABLET PO ×3 (08:38→21:30)
[2017-12-04] MEDS: LORATADINE 10 MG TAB PO (08:39)
[2017-12-04] MEDS: metOLazone 2.5 MG TAB PO (08:39)
[2017-12-04] MEDS: ASPIRIN 81 MG ENTERIC TAB PO (08:40)
[2017-12-04] MEDS: METOPROLOL TART 12.5 MG PER 1/2 TAB PO ×2 (08:40→20:35)
[2017-12-04] MEDS: AMIODARONE 200 MG TAB (PACERONE) PO (08:40)
[2017-12-04] MEDS: NYSTATIN 100,000 UNITS/GM TOPICAL PWD 15 GM TOP ×2 (08:41→20:31)
[2017-12-04 11:34] LABS: BEDSIDE GLUCOSE 136 MG/DL (80-115)
[2017-12-04 17:03] LABS: BEDSIDE GLUCOSE 100 MG/DL (80-115)
[2017-12-04] MEDS ORDERED: SLF 3 ML SYR IV (17:45)
[2017-12-04 20:29] LABS: BEDSIDE GLUCOSE 164 MG/DL (80-115)
[2017-12-04] MEDS: ATORVASTATIN 20 MG TAB PO (20:30)
[2017-12-04] MEDS ORDERED: KCL 10MEQ/100ML SWI (KRUN) 10 MEQ in APPROPRIATE DILUENT 1 EA IV (20:45)
[2017-12-04] MEDS: SLF 3 ML SYR IV (21:28)
[2017-12-05] MEDS: NORCO, ANEXSIA 5/325MG TABLET (HYDROcodone/ACETAMINOPHEN) PO ×3 (05:36→23:24)
[2017-12-05] MEDS: LEVOTHYROXINE 25MCG TABLET (0.025MG) PO (05:36)
[2017-12-05] MEDS: SLF 3 ML SYR IV ×3 (05:37→21:21)
[2017-12-05] MEDS: FUROSEMIDE 40 MG/4 ML VIAL (J1940) IV ×2 (05:37)
[2017-12-05 06:47] LABS: HEMATOCRIT 37.6 % (36.0-47.0); HEMOGLOBIN 11.5 g/dl (12.0-15.5); MEAN CORPUSCULAR HEMOGLOBIN 30.8 pg (27.0-33.0); MEAN CORPUSCULAR HGB CONC 30.6 g/dl (32.0-36.5); MEAN CORPUSCULAR VOLUME 100.8 fl (80.0-96.0); PLATELET COUNT, AUTOMATED 214 10^3/uL (150-450); RED BLOOD COUNT 3.73 10^6/uL (4.00-5.40); RED CELL DISTRIBUTION WIDTH 15.5 % (11.5-14.5); WHITE BLOOD COUNT 7.5 10^3/uL (4.0-10.0)
[2017-12-05 07:04] LABS: ANION GAP 5 MEQ/L (8-16); BLOOD UREA NITROGEN 37 MG/DL (7-18); CALCIUM LEVEL 8.6 MG/DL (8.8-10.2); CARBON DIOXIDE LEVEL 37 MEQ/L (21-32); CHLORIDE LEVEL 99 MEQ/L (98-107); CREATININE FOR GFR 1.54 MG/DL (0.55-1.30); GLOMERULAR FILTRATION RATE 35.8 (>45); GLUCOSE, FASTING 114 MG/DL (70-100); MAGNESIUM LEVEL 2.3 MG/DL (1.8-2.4); PHOSPHORUS LEVEL 3.7 MG/DL (2.5-4.9); POTASSIUM SERUM 3.5 MEQ/L (3.5-5.1); SODIUM LEVEL 141 MEQ/L (136-145)
[2017-12-05] MEDS: AMIODARONE 200 MG TAB (PACERONE) PO (07:48)
[2017-12-05] MEDS: MULTIVITAMINS/MINERALS THERAP 1 TAB PO (07:48)
[2017-12-05] MEDS: LORATADINE 10 MG TAB PO (07:48)
[2017-12-05] MEDS: ASPIRIN 81 MG ENTERIC TAB PO (07:49)
[2017-12-05] MEDS: DABIGATRAN ETEXILATE 75 MG CAP (PRADAXA) PO ×2 (07:49→20:16)
[2017-12-05] MEDS: POTASSIUM CHLORIDE 10 MEQ SR TABLET PO ×2 (07:49→20:16)
[2017-12-05] MEDS: metOLazone 2.5 MG TAB PO (07:49)
[2017-12-05] MEDS: HumaLOG INSULIN (NovoLOG) PER UNIT SC ×4 (07:50→20:39)
[2017-12-05] MEDS: METOPROLOL TART 12.5 MG PER 1/2 TAB PO ×2 (09:00→20:17)
[2017-12-05 11:36] LABS: BEDSIDE GLUCOSE 143 MG/DL (80-115)
[2017-12-05] MEDS: NYSTATIN 100,000 UNITS/GM TOPICAL PWD 15 GM TOP ×2 (12:07→20:19)
[2017-12-05 16:40] LABS: BEDSIDE GLUCOSE 124 MG/DL (80-115)
[2017-12-05] MEDS: TORSEMIDE 20 MG TAB PO (17:42)
[2017-12-05] MEDS: ATORVASTATIN 20 MG TAB PO (20:16)
[2017-12-05 20:36] LABS: BEDSIDE GLUCOSE 190 MG/DL (80-115)
[2017-12-06] MEDS: SLF 3 ML SYR IV ×3 (05:07→20:44)
[2017-12-06] MEDS: LEVOTHYROXINE 25MCG TABLET (0.025MG) PO (05:07)
[2017-12-06 06:26] LABS: HEMATOCRIT 35.5 % (36.0-47.0); MEAN CORPUSCULAR HEMOGLOBIN 31.3 pg (27.0-33.0); MEAN CORPUSCULAR VOLUME 101.1 fl (80.0-96.0); PLATELET COUNT, AUTOMATED 201 10^3/uL (150-450); RED BLOOD COUNT 3.51 10^6/uL (4.00-5.40); RED CELL DISTRIBUTION WIDTH 15.7 % (11.5-14.5); WHITE BLOOD COUNT 6.7 10^3/uL (4.0-10.0)
[2017-12-06 06:53] LABS: ANION GAP 5 MEQ/L (8-16); BLOOD UREA NITROGEN 38 MG/DL (7-18); CALCIUM LEVEL 8.5 MG/DL (8.8-10.2); CARBON DIOXIDE LEVEL 39 MEQ/L (21-32); CHLORIDE LEVEL 99 MEQ/L (98-107); CREATININE FOR GFR 1.61 MG/DL (0.55-1.30); GLUCOSE, FASTING 115 MG/DL (70-100); MAGNESIUM LEVEL 2.4 MG/DL (1.8-2.4); POTASSIUM SERUM 3.3 MEQ/L (3.5-5.1); SODIUM LEVEL 143 MEQ/L (136-145)
[2017-12-06] MEDS: DABIGATRAN ETEXILATE 75 MG CAP (PRADAXA) PO ×2 (08:29→20:43)
[2017-12-06] MEDS: metOLazone 2.5 MG TAB PO (08:29)
[2017-12-06] MEDS: HumaLOG INSULIN (NovoLOG) PER UNIT SC ×4 (08:29→20:02)
[2017-12-06] MEDS: NORCO, ANEXSIA 5/325MG TABLET (HYDROcodone/ACETAMINOPHEN) PO ×2 (08:29→16:46)
[2017-12-06] MEDS: LORATADINE 10 MG TAB PO (08:30)
[2017-12-06] MEDS: MULTIVITAMINS/MINERALS THERAP 1 TAB PO (08:30)
[2017-12-06] MEDS: POTASSIUM CHLORIDE 10 MEQ SR TABLET PO ×3 (08:30→20:44)
[2017-12-06] MEDS: ASPIRIN 81 MG ENTERIC TAB PO (08:31)
[2017-12-06] MEDS: METOPROLOL TART 12.5 MG PER 1/2 TAB PO ×2 (08:31→20:44)
[2017-12-06] MEDS: AMIODARONE 200 MG TAB (PACERONE) PO (08:31)
[2017-12-06] MEDS: TORSEMIDE 20 MG TAB PO ×2 (08:31→16:44)
[2017-12-06] MEDS: NYSTATIN 100,000 UNITS/GM TOPICAL PWD 15 GM TOP ×2 (08:32→20:45)
[2017-12-06] MEDS: ALBUTEROL SULFATE 2.5 MG/0.5 ML INH NEB SOLN NEB (09:14)
[2017-12-06 12:54] LABS: BEDSIDE GLUCOSE 125 MG/DL (80-115)
[2017-12-06 17:48] LABS: BEDSIDE GLUCOSE 118 MG/DL (80-115)
[2017-12-06 18:20] LABS: AMORPHOUS SEDIMENT RFX SMALL (NEGATIVE); KETONE, URINE AUTO RFX NEGATIVE (NEGATIVE); LEUKOCYTE ESTERASE UR AUTO RFX NEGATIVE (NEGATIVE); MUCUS, URINE RFX SMALL (NEGATIVE); NITRITE, URINE AUTO RFX NEGATIVE (NEGATIVE); RBC, URINE AUTO RFX TNTC /HPF (0-3); SPECIFIC GRAVITY UR AUTO RFX 1.009 (1.002-1.035); SQUAM EPITHELIAL CELL UR AURFX 0 /HPF (0-6)
[2017-12-06 18:22] LABS: WBC, URINE AUTO RFX 12 /HPF (0-3)
[2017-12-06 19:56] LABS: BEDSIDE GLUCOSE 216 MG/DL (80-115)
[2017-12-06] MEDS: ATORVASTATIN 20 MG TAB PO (20:44)
[2017-12-07] MEDS: NORCO, ANEXSIA 5/325MG TABLET (HYDROcodone/ACETAMINOPHEN) PO ×2 (03:27→15:48)
[2017-12-07] MEDS: LEVOTHYROXINE 25MCG TABLET (0.025MG) PO (06:20)
[2017-12-07] MEDS: SLF 3 ML SYR IV ×3 (06:20→21:03)
[2017-12-07 06:29] LABS: HEMATOCRIT 34.6 % (36.0-47.0); HEMOGLOBIN 10.7 g/dl (12.0-15.5); MEAN CORPUSCULAR HEMOGLOBIN 31.1 pg (27.0-33.0); MEAN CORPUSCULAR HGB CONC 30.9 g/dl (32.0-36.5); MEAN CORPUSCULAR VOLUME 100.6 fl (80.0-96.0); PLATELET COUNT, AUTOMATED 202 10^3/uL (150-450); RED BLOOD COUNT 3.44 10^6/uL (4.00-5.40); RED CELL DISTRIBUTION WIDTH 15.9 % (11.5-14.5); WHITE BLOOD COUNT 7.2 10^3/uL (4.0-10.0)
[2017-12-07 06:48] LABS: ANION GAP 5 MEQ/L (8-16); BLOOD UREA NITROGEN 46 MG/DL (7-18); CALCIUM LEVEL 8.3 MG/DL (8.8-10.2); CARBON DIOXIDE LEVEL 37 MEQ/L (21-32); CHLORIDE LEVEL 99 MEQ/L (98-107); CREATININE FOR GFR 1.65 MG/DL (0.55-1.30); GLUCOSE, FASTING 125 MG/DL (70-100); MAGNESIUM LEVEL 2.3 MG/DL (1.8-2.4); POTASSIUM SERUM 3.3 MEQ/L (3.5-5.1); SODIUM LEVEL 141 MEQ/L (136-145)
[2017-12-07] MEDS: HumaLOG INSULIN (NovoLOG) PER UNIT SC ×4 (08:31→21:00)
[2017-12-07] MEDS: DABIGATRAN ETEXILATE 75 MG CAP (PRADAXA) PO ×2 (08:34→21:02)
[2017-12-07] MEDS: ASPIRIN 81 MG ENTERIC TAB PO (08:34)
[2017-12-07] MEDS: POTASSIUM CHLORIDE 10 MEQ SR TABLET PO ×3 (08:34→21:02)
[2017-12-07] MEDS: TORSEMIDE 20 MG TAB PO ×2 (08:34→17:39)
[2017-12-07] MEDS: MULTIVITAMINS/MINERALS THERAP 1 TAB PO (08:34)
[2017-12-07] MEDS: LORATADINE 10 MG TAB PO (08:34)
[2017-12-07] MEDS: METOPROLOL TART 12.5 MG PER 1/2 TAB PO ×2 (08:35→21:02)
[2017-12-07] MEDS: SPIRONOLACTONE 50 MG TAB PO ×2 (08:35→17:39)
[2017-12-07] MEDS: AMIODARONE 200 MG TAB (PACERONE) PO (08:48)
[2017-12-07] MEDS: NYSTATIN 100,000 UNITS/GM TOPICAL PWD 15 GM TOP ×2 (09:00→21:03)
[2017-12-07 11:57] LABS: BEDSIDE GLUCOSE 118 MG/DL (80-115)
[2017-12-07 17:49] LABS: BEDSIDE GLUCOSE 117 MG/DL (80-115)
[2017-12-07 20:35] LABS: BEDSIDE GLUCOSE 175 MG/DL (80-115)
[2017-12-07 20:59] LABS: FREE THYROXINE INDEX 2.7 % (1.3-4.8); T UPTAKE 36 % (30-39); THYROXINE (T4) 7.5 UG/DL (4.5-12.0)
[2017-12-07] MEDS: ATORVASTATIN 20 MG TAB PO (21:03)
[2017-12-08] MEDS: NORCO, ANEXSIA 5/325MG TABLET (HYDROcodone/ACETAMINOPHEN) PO ×2 (00:52→20:36)
[2017-12-08 05:19] LABS: HEMATOCRIT 37.6 % (36.0-47.0); HEMOGLOBIN 11.6 g/dl (12.0-15.5); MEAN CORPUSCULAR HEMOGLOBIN 30.9 pg (27.0-33.0); MEAN CORPUSCULAR HGB CONC 30.9 g/dl (32.0-36.5); MEAN CORPUSCULAR VOLUME 100.3 fl (80.0-96.0); PLATELET COUNT, AUTOMATED 208 10^3/uL (150-450); RED BLOOD COUNT 3.75 10^6/uL (4.00-5.40); RED CELL DISTRIBUTION WIDTH 15.5 % (11.5-14.5); WHITE BLOOD COUNT 6.5 10^3/uL (4.0-10.0)
[2017-12-08 05:34] LABS: ANION GAP 7 MEQ/L (8-16); BLOOD UREA NITROGEN 48 MG/DL (7-18); CALCIUM LEVEL 8.9 MG/DL (8.8-10.2); CARBON DIOXIDE LEVEL 35 MEQ/L (21-32); CHLORIDE LEVEL 101 MEQ/L (98-107); CREATININE FOR GFR 1.53 MG/DL (0.55-1.30); GLUCOSE, FASTING 128 MG/DL (70-100); MAGNESIUM LEVEL 2.3 MG/DL (1.8-2.4); POTASSIUM SERUM 3.7 MEQ/L (3.5-5.1); SODIUM LEVEL 143 MEQ/L (136-145)
[2017-12-08] MEDS: LEVOTHYROXINE 75MCG TABLET (0.075MG) PO (05:56)
[2017-12-08] MEDS: SLF 3 ML SYR IV ×4 (05:56→21:40)
[2017-12-08] MEDS: HumaLOG INSULIN (NovoLOG) PER UNIT SC ×4 (09:00→20:37)
[2017-12-08] MEDS: POTASSIUM CHLORIDE 10 MEQ SR TABLET PO ×2 (09:01→20:36)
[2017-12-08] MEDS: METOPROLOL TART 12.5 MG PER 1/2 TAB PO ×2 (09:01→20:35)
[2017-12-08] MEDS: DABIGATRAN ETEXILATE 75 MG CAP (PRADAXA) PO ×2 (09:01→20:35)
[2017-12-08] MEDS: TORSEMIDE 20 MG TAB PO ×2 (09:02→17:27)
[2017-12-08] MEDS: MULTIVITAMINS/MINERALS THERAP 1 TAB PO (09:02)
[2017-12-08] MEDS: LORATADINE 10 MG TAB PO (09:02)
[2017-12-08] MEDS: ASPIRIN 81 MG ENTERIC TAB PO (09:02)
[2017-12-08] MEDS: SPIRONOLACTONE 50 MG TAB PO ×2 (09:03→17:26)
[2017-12-08 12:15] LABS: BEDSIDE GLUCOSE 86 MG/DL (80-115)
[2017-12-08 16:56] LABS: BEDSIDE GLUCOSE 115 MG/DL (80-115)
[2017-12-08] MEDS: NYSTATIN 100,000 UNITS/GM TOPICAL PWD 15 GM TOP ×2 (17:23→20:36)
[2017-12-08 20:32] LABS: BEDSIDE GLUCOSE 194 MG/DL (80-115)
[2017-12-08] MEDS: ATORVASTATIN 20 MG TAB PO (20:35)
[2017-12-09] MEDS: SLF 3 ML SYR IV ×3 (05:02→21:18)
[2017-12-09 05:45] LABS: HEMATOCRIT 34.7 % (36.0-47.0); HEMOGLOBIN 10.9 g/dl (12.0-15.5); MEAN CORPUSCULAR HEMOGLOBIN 31.1 pg (27.0-33.0); MEAN CORPUSCULAR HGB CONC 31.4 g/dl (32.0-36.5); MEAN CORPUSCULAR VOLUME 98.9 fl (80.0-96.0); PLATELET COUNT, AUTOMATED 224 10^3/uL (150-450); RED BLOOD COUNT 3.51 10^6/uL (4.00-5.40); RED CELL DISTRIBUTION WIDTH 15.6 % (11.5-14.5); WHITE BLOOD COUNT 6.5 10^3/uL (4.0-10.0)
[2017-12-09] MEDS: LEVOTHYROXINE 75MCG TABLET (0.075MG) PO (05:53)
[2017-12-09 06:03] LABS: ANION GAP 6 MEQ/L (8-16); BLOOD UREA NITROGEN 52 MG/DL (7-18); CALCIUM LEVEL 8.9 MG/DL (8.8-10.2); CARBON DIOXIDE LEVEL 36 MEQ/L (21-32); CHLORIDE LEVEL 99 MEQ/L (98-107); CREATININE FOR GFR 1.51 MG/DL (0.55-1.30); GLOMERULAR FILTRATION RATE 36.6 (>45); GLUCOSE, FASTING 126 MG/DL (70-100); MAGNESIUM LEVEL 2.3 MG/DL (1.8-2.4); POTASSIUM SERUM 3.6 MEQ/L (3.5-5.1); SODIUM LEVEL 141 MEQ/L (136-145)
[2017-12-09] MEDS: HumaLOG INSULIN (NovoLOG) PER UNIT SC ×4 (07:53→21:00)
[2017-12-09] MEDS: ASPIRIN 81 MG ENTERIC TAB PO (09:19)
[2017-12-09] MEDS: DABIGATRAN ETEXILATE 75 MG CAP (PRADAXA) PO ×2 (09:19→21:19)
[2017-12-09] MEDS: METOPROLOL TART 12.5 MG PER 1/2 TAB PO (09:20)
[2017-12-09] MEDS: SPIRONOLACTONE 50 MG TAB PO ×2 (09:21→17:18)
[2017-12-09] MEDS: TORSEMIDE 20 MG TAB PO ×2 (09:21→17:18)
[2017-12-09] MEDS: POTASSIUM CHLORIDE 10 MEQ SR TABLET PO ×2 (09:22→21:18)
[2017-12-09] MEDS: LORATADINE 10 MG TAB PO (09:22)
[2017-12-09] MEDS: MULTIVITAMINS/MINERALS THERAP 1 TAB PO (09:22)
[2017-12-09] MEDS: NYSTATIN 100,000 UNITS/GM TOPICAL PWD 15 GM TOP ×2 (09:23→21:20)
[2017-12-09 11:49] LABS: BEDSIDE GLUCOSE 115 MG/DL (80-115)
[2017-12-09] MEDS: NORCO, ANEXSIA 5/325MG TABLET (HYDROcodone/ACETAMINOPHEN) PO (11:54)
[2017-12-09 16:48] LABS: BEDSIDE GLUCOSE 127 MG/DL (80-115)
[2017-12-09 21:16] LABS: BEDSIDE GLUCOSE 146 MG/DL (80-115)
[2017-12-09] MEDS: ATORVASTATIN 20 MG TAB PO (21:18)
[2017-12-10] MEDS: LEVOTHYROXINE 75MCG TABLET (0.075MG) PO (05:22)
[2017-12-10] MEDS: SLF 3 ML SYR IV (05:22)
[2017-12-10 06:51] LABS: BEDSIDE GLUCOSE 120 MG/DL (80-115)
[2017-12-10] MEDS: HumaLOG INSULIN (NovoLOG) PER UNIT SC (08:31)
[2017-12-10] MEDS: SPIRONOLACTONE 50 MG TAB PO (08:32)
[2017-12-10] MEDS: LORATADINE 10 MG TAB PO (08:32)
[2017-12-10] MEDS: TORSEMIDE 20 MG TAB PO (08:32)
[2017-12-10] MEDS: ASPIRIN 81 MG ENTERIC TAB PO (08:33)
[2017-12-10] MEDS: AMIODARONE 200 MG TAB (PACERONE) PO (08:33)
[2017-12-10] MEDS: POTASSIUM CHLORIDE 10 MEQ SR TABLET PO (08:33)
[2017-12-10] MEDS: MULTIVITAMINS/MINERALS THERAP 1 TAB PO (08:33)
[2017-12-10] MEDS: NYSTATIN 100,000 UNITS/GM TOPICAL PWD 15 GM TOP (08:34)
[2017-12-10] MEDS: DABIGATRAN ETEXILATE 75 MG CAP (PRADAXA) PO (08:39)
== END 2017-12-10 11:09 | disposition home or self-care (01) | DRG 291 ==
LOC: M ED 07:32 → M ED INP 10:11 → M PCU 14:16
DX: I13.0 Hypertensive heart and chronic kidney disease with heart failure and stage 1 through stage 4 chronic kidney disease, or unspecified chronic kidney disease (principal); I50.33 Acute on chronic diastolic (congestive) heart failure; E66.2 Morbid (severe) obesity with alveolar hypoventilation; I47.2 Ventricular tachycardia; N17.9 Acute kidney failure, unspecified; E87.4 Mixed disorder of acid-base balance; Z68.43 Body mass index [BMI] 50.0-59.9, adult; E11.22 Type 2 diabetes mellitus with diabetic chronic kidney disease; J44.9 Chronic obstructive pulmonary disease, unspecified; I25.10 Atherosclerotic heart disease of native coronary artery without angina pectoris; E78.5 Hyperlipidemia, unspecified; I34.1 Nonrheumatic mitral (valve) prolapse; I27.20 Pulmonary hypertension, unspecified; I48.0 Paroxysmal atrial fibrillation; I95.89 Other hypotension; E03.2 Hypothyroidism due to medicaments and other exogenous substances; I87.2 Venous insufficiency (chronic) (peripheral); E87.6 Hypokalemia; N18.3 Chronic kidney disease, stage 3 (moderate); Z99.81 Dependence on supplemental oxygen; Z95.5 Presence of coronary angioplasty implant and graft; Z90.49 Acquired absence of other specified parts of digestive tract; Z88.2 Allergy status to sulfonamides; Z88.8 Allergy status to other drugs, medicaments and biological substances; Z87.891 Personal history of nicotine dependence; Z79.01 Long term (current) use of anticoagulants; Z79.899 Other long term (current) drug therapy; Z79.82 Long term (current) use of aspirin; Z79.84 Long term (current) use of oral hypoglycemic drugs

== ENCOUNTER → 2018-01-22 | Outpatient (REF) | payer OTHER ==
[2018-01-22 19:42] LABS: FREE T4 1.33 NG/DL (0.76-1.46)
== END ==
LOC: M LAB REF 17:51
DX: E03.9 Hypothyroidism, unspecified (principal)
CPT/HCPCS: 84443

== ENCOUNTER 2018-04-24 10:27 | Inpatient (IN) | payer OTHER ==
[~2018-04-24] VITALS: Ht 167.6 cm; Wt 175.8 kg
[~2018-04-24 10:27] MED LIST changes: +ACET1TAB55 PO; +ALDA50TA2 PO; +AMIL5TAB4 PO; +ANOR1AER INH; +ASPIRIN 81 MG ENTERIC TAB PO SCH; +KLOR10TA76 PO; +KLOR20TA42 PO; -LASI20TA PO; +LASI20TA3 PO; -LASI40TA PO; +LASI40TA9 PO; +LEVO75TA4 PO; -LISI2.5T3 PO; +LISI2.5T5 PO; +LORA-243 PO; -LORA10TA2 PO; +PERC5TAB12 PO; -POTA10CA PO; -POTA20TA PO; +SPIR-10 PO; -SPIR25TA2 PO; +VENTAER PO
[2018-04-24 10:58] LABS: HEMATOCRIT 26.7 % (36.0-47.0); HEMOGLOBIN 7.7 g/dl (12.0-15.5); MEAN CORPUSCULAR HEMOGLOBIN 27.4 pg (27.0-33.0); MEAN CORPUSCULAR HGB CONC 28.8 g/dl (32.0-36.5); PLATELET COUNT, AUTOMATED 344 10^3/uL (150-450); RED BLOOD COUNT 2.81 10^6/uL (4.00-5.40)
[2018-04-24 10:59] LABS: VENOUS BASE EXCESS -9.1 (-2.0-2.0); VENOUS HCO3 17.7 MEQ/L (23.0-27.0); VENOUS O2 SATURATION 52.7 % (60.0-80.0); VENOUS PARTIAL PRESSURE CO2 42.9 mmHg (38.0-50.0); VENOUS PARTIAL PRESSURE O2 34.1 mmHg (30.0-50.0); VENOUS PH 7.234 UNITS (7.330-7.430); VENOUS STANDARD HCO3 16.4 MEQ/L
[2018-04-24] MEDS ORDERED: fentaNYL 100 MCG/2 ML INJECTION (J3010) IV ONE (11:00)
[2018-04-24 11:03] LABS: WHITE BLOOD COUNT 36.7 10^3/uL (4.0-10.0)
[2018-04-24 11:34] LABS: ANISOCYTOSIS 1+; HYPOCHROMASIA 1+; MICROCYTOSIS 1+; MONOCYTES 2 % (0-8); NEUTROPHILS 95 % (35-75)
[2018-04-24 11:35] LABS: PLATELET ESTIMATE NORMAL (NORMAL)
[2018-04-24 11:44] LABS: CALCIUM LEVEL 8.7 MG/DL (8.8-10.2); CREATININE FOR GFR 2.76 MG/DL (0.55-1.30); GLOMERULAR FILTRATION RATE 18.2 (>45)
[2018-04-24] MEDS ORDERED: NS 500 ML IV ONE ×2 (11:45→20:15)
[2018-04-24 12:00] LABS: ALBUMIN 3.1 GM/DL (3.2-5.2); BILIRUBIN,DIRECT 0.5 MG/DL (0.0-0.2); BILIRUBIN,TOTAL 1.2 MG/DL (0.2-1.0); POTASSIUM SERUM 5.4 MEQ/L (3.5-5.1); TOTAL PROTEIN 7.1 GM/DL (6.4-8.2)
[2018-04-24] MEDS ORDERED: CEFEPIME HCL 2 GM in D5W MINI-BAG PLUS 50 ML IV ONE (12:15)
[2018-04-24] MEDS ORDERED: NS IV ONE (12:15)
[2018-04-24] MEDS ORDERED: DILUENT IV ONE (12:15)
--- NOTE | 2018-04-24 12:24 | REP ---
Clinical: Abdominal pain and sepsis. Technique: Axial noncontrast images from the lung bases to the pubic symphysis with coronal and sagittal re-formations. Note: Evaluation is significantly limited due to body habitus and associated technical factors causing significant artifact. Findings: Liver, spleen, atrophic pancreas, bilateral adrenal glands are essentially normal. Small amount of perihepatic ascites is suggested. Cholelithiasis noted without obvious acute cholecystitis. Kidneys demonstrate chronic atrophic changes and renovascular calcifications without hydronephrosis or perinephric stranding. The enteric system is without obvious obstruction or acute inflammatory process. Diverticulosis noted without acute diverticulitis. Pelvis demonstrates collapsed normal bladder and age-appropriate uterus/adnexa. No free air. Osseous structures demonstrate degenerative changes without focal osseous abnormality. Abdominal aorta without aneurysm. Extensive subcutaneous edema and suspected fluid collection in the right flank is incompletely evaluated due to positioning. Impression: 1. Diffuse knee pain subcutaneous edema and possible fluid collection in the right flank. 2. Relatively chronic-appearing changes as described above. 3. Evaluation is significantly limited. Electronically Signed by Linden Bruno MD 04/24/2018 12:15 P
--- NOTE | 2018-04-24 12:26 | REP ---
Clinical: Sepsis. Technique: Axial noncontrast images from the thoracic inlet to the upper abdomen with coronal and sagittal re-formations. Note: Examination is significantly limited due to body habitus and associated technical factors causing significant artifact. Findings: Very subtle trace scattered bilateral ground-glass opacities and atelectasis may reflect mild pneumonitis. No focal consolidation. No effusion. No pneumothorax. Tracheobronchial tree is patent. Mild cardiomegaly suggested. Atherosclerotic disease to the thoracic aorta and coronary arteries noted. No pericardial effusion. No obvious adenopathy. Fat stranding along the right side of the visualized right flank with possible ill-defined fluid collection in the subcutaneous tissues. Osseous structures demonstrate degenerative changes without focal osseous abnormality. Impression: 1. Significantly limited examination. Cannot exclude a mild pneumonitis with subtle scattered perihilar ground-glass opacities and trace atelectasis. 2. Significant fat stranding within the right flank with possible fluid collection. Electronically Signed by Linden Bruno MD 04/24/2018 12:18 P
--- NOTE | 2018-04-24 12:50 | REP ---
CT lumbar spine without contrast: History: Severe low back pain after a fall. Technique: Helical scanning is acquired and 4 mm axial images are reformatted. Coronal and sagittal multiplanar re-formation images are generated. Image quality is significantly inhibited by patient body habitus. Comparison imaging is from April 11, 2016. CT findings: There is considerable beam-hardening artifact due to body habitus. There is a nondisplaced fracture of the right anterolateral margin of the T12 vertebral body. There is bridging osteophyte formation at T12-L1 and kissing osteophytes are observed at the L1-L2. These are on the right side. No other fracture is seen. No vertebral body collapse is seen. There is osteoarthritic facet disease at multiple lumbar levels. Vascular calcification is noted. Normal caliber aorta is seen. There is evidence of a right common iliac artery aneurysm measuring 2.6 cm in greatest diameter. Vertebral body heights are preserved. No collapse is seen. Degenerative discogenic spurring is seen at multiple levels. Vacuum phenomenon are visible at L3-4, L1-2 and T12-L1. Impression: Nondisplaced fracture of the right anterolateral aspect of the T12 vertebral body. There is adjacent bridging osteophyte formation on the right at T12-L1. No other fracture is seen. Fairly advanced degenerative spondylosis changes are noted. Electronically Signed by Gildardo Cage MD 04/24/2018 01:33 P
[2018-04-24 12:59] LABS: INR 4.01; PROTHROMBIN TIME 40.1 SECONDS (12.1-14.4)
[2018-04-24 13:00] LABS: PARTIAL THROMBOPLASTIN TIME 105.6 SECONDS (25.4-37.6)
[2018-04-24] MEDS ORDERED: SYNT75TA PO (13:06)
[2018-04-24] MEDS ORDERED: TORS20TA2 PO (13:06)
[2018-04-24] MEDS ORDERED: SPIR50TA4 PO (13:06)
[2018-04-24] MEDS ORDERED: METO25TA4 PO (13:06)
[2018-04-24 13:16] LABS: APPEARANCE, URINE HAZY (CLEAR); BACTERIA, URINE AUTO 1+ (NEGATIVE); BILIRUBIN, URINE AUTO NEGATIVE (NEGATIVE); BLOOD, URINE BLOOD NEGATIVE (NEGATIVE); COLOR, URINE YELLOW (YELLOW); GLUCOSE, URINE (UA) AUTO NEGATIVE (NEGATIVE); KETONE, URINE AUTO NEGATIVE (NEGATIVE); LEUKOCYTE ESTERASE, URINE AUTO NEGATIVE (NEGATIVE); MUCUS, URINE SMALL (NEGATIVE); NITRITE, URINE AUTO NEGATIVE (NEGATIVE); PROTEIN, URINE AUTO NEGATIVE (NEGATIVE); RBC, URINE AUTO 0 /HPF (0-3); SPECIFIC GRAVITY URINE AUTO 1.017 (1.002-1.035); SQUAMOUS EPITHELIAL CELL UR AU 0 /HPF (0-6); WBC, URINE AUTO 1 /HPF (0-3)
[2018-04-24 13:17] LABS: ABG BASE EXCESS -8.1 (-2.0-2.0); ABG HCO3 17.5 MEQ/L (22.0-26.0); ABG O2 SATURATION 95.8 % (95.0-99.0); ABG PARTIAL PRESSURE CO2 36.1 mmHg (35.0-45.0); ABG PARTIAL PRESSURE O2 86.1 mmHg (75.0-100.0); ABG STANDARD HCO3 17.8 MEQ/L (22.0-26.0); ABG TOTAL CO2 18.6 MEQ/L (23.0-31.0); ABG pH (ARTERIAL) 7.304 UNITS (7.350-7.450)
[2018-04-24 13:33] LABS: C REACTIVE PROTEIN QUANTITATIV 13.3 MG/DL (0.00-0.30); MB/CK RELATIVE INDEX 3.12 (< OR =4); TROPONIN I 0.12 NG/ML (< 0.10)
[2018-04-24 13:50] LABS: INFLUENZA A AMPLIFICATION NEGATIVE (NEGATIVE); INFLUENZA B AMPLIFICATION NEGATIVE (NEGATIVE)
[2018-04-24] MEDS ORDERED: ACETAMINOPHEN TAB 650MG DOSE (2X325MG) PO PRN (14:00)
[2018-04-24] MEDS ORDERED: ALBUTEROL 90 MCG/ACT 8GM HFA INHALER INH PRN (14:00)
[2018-04-24] MEDS ORDERED: LIDOCAINE 5% (LIDODERM) PATCH TD ONE (14:30)
--- NOTE | 2018-04-24 14:51 | HPE ---
DATE OF ADMISSION: 04/24/2018 This is a 68-year-old female with a past medical history of super morbid obesity, diastolic heart failure, hypertension, diabetes, hyperlipidemia, oxygen dependent chronic obstructive pulmonary disease (COPD) requiring 1 liter of oxygen, coronary artery disease status post stent placement, paroxysmal atrial fibrillation, chronic low back pain, who presented to the emergency room after having a fall at home this morning. She says that she did not actually fall but her legs gave out and she slowly slumped herself on her buttocks to the floor. She was not able to get back up and so she emailed a friend to call emergency medical services (EMS) to bring her to the emergency room. In the emergency room, she was in severe pain and was given fentanyl. She was subsequently found to be hypotensive and with elevated lactic acid, septic. Was started on IV cefepime. Abdominal CT of the chest, abdomen and pelvis, as well as CT of the thoracolumbar spine showed no evidence of consolidation or pulmonary congestion and did show some mild fluid collection in the right pelvis. Dr. Ramirez was notified by the emergency room attending, who saw the images but was not concerned and recommendations to continue antibiotic therapy at this time. Osorio was placed but a urinalysis is pending. CT of the thoracolumbar spine only showed a nondisplaced fracture of T12 vertebral body. The patient did note to be having diarrhea for the last 2 weeks, approximately 4 days ago the diarrhea stopped. She was on Lomotil for this. She did not receive antibiotics in the last few months. She denies any upper respiratory symptoms or any subjective feeling of fever or chills. She has no dysuria or frequency, though she was found incontinent of stool and urine when she came to the emergency room. She will be admitted for further evaluation. PAST MEDICAL HISTORY: 1. Super morbid obesity. 2. Chronic diastolic heart failure. 3. History of paroxysmal atrial fibrillation. 4. Hypertension. 5. Diabetes. 6. Hyperlipidemia. 7. Coronary artery disease, status post stent placement. 8. Oxygen dependent chronic obstructive pulmonary disease (COPD), requiring 1 liter of oxygen. 9. Chronic kidney disease stage III, baseline creatinine of approximately 1.7. 10. History of ischemic bowel, status post partial bowel resection in 2009. ALLERGIES: She has allergy to SULFA medication, as well as HEPARIN. She has a history of heparin induced thrombocytopenia (HIT). FAMILY HISTORY: Noncontributory. SOCIAL HISTORY: The patient used to be a heavy smoker, approximately 35 pack per year history but quit many years ago. Denies alcohol or illicit drugs. MEDICATIONS: She takes at home: - Tylenol 650 mg by mouth every 6 hours as needed - [place] one tablet by mouth three times a day as needed, 5/325 mg - albuterol sulfate two puffs inhaled every 4 hours as needed - amiodarone 200 mg by mouth five times a week - Anoro Ellipta one puff inhaled daily - aspirin 81 mg daily - atorvastatin 40 mg daily at bedtime - Pradaxa 150 mg by mouth twice a day - Synthroid 75 mcg by mouth daily - loratadine 10 mg by mouth daily - magnesium chloride 64 mg by mouth three times a week - metformin 500 mg by mouth daily - metoprolol 12.5 mg by mouth daily - potassium chloride 20 mEq three times a day - spironolactone 50 mg by mouth twice a day - torsemide 40 mg by mouth daily REVIEW OF SYSTEMS: Negative for all ten major systems except what is mentioned in the history of present illness. VITAL SIGNS: Blood pressure is 90/46, heart rate is 69 and regular, respiratory rate is 20, temperature rectally was 96.2, oxygen saturation is 93% on 2 liters nasal cannula. Head is atraumatic, normocephalic. Dried mucous membranes noted. Neck is supple with no jugular venous distention (JVD). Lungs are clear to auscultation. S1, S2 audible. No murmurs appreciated. Abdomen has tenderness in all quadrants on deep palpation. No rebound. Positive bowel sounds. There is 1+ pedal edema bilaterally. Skin intact. Neurologic examination, the patient is awake, alert and oriented times three. LABORATORIES: WBC is 36.7, hemoglobin 7.7, hematocrit 26.7, platelets are 344,000. ABG shows arterial pH of 7.304, PCO2 of 36.1, PO2 of 86.1, bicarbonate is 17.5. Sodium is 133, potassium 5.4, chloride 102, CO2 of 19, anion gap is 12, BUN is 55, creatinine 2.76, lactic acid is 5, calcium 8.7, troponin is 0.12. AST is 25, ALT 15, total bilirubin is 1.2. Urinalysis is not suggestive of a urinary tract infection (UTI). IMPRESSION: 1. Sepsis. 2. Acute kidney injury. PLAN: The patient was admitted to the progressive care unit (PCU). We will continue sepsis protocol and I am going to start the patient on IV Zosyn 2.25 mg every 8 hours. Leslie cultures have been sent, as well as a GI panel. As far as acute kidney injury is concerned, this is likely dehydration, prerenal azotemia from volume loss from the chronic diarrhea that she has had, in fact she says that she has only been having saltine crackers and sips of water. We will continue IV fluids and monitor BUN and creatinine trends. As far as her low back pain and weakness with falls are concerned, I will have physical therapy (PT) see the patient in the morning. I cannot give any narcotics at this time because of the low blood pressure. We will instead give a Lidoderm patch for the time being and we will continue her care in the progressive care unit (PCU).
[2018-04-24 15:40] VITALS: BP 100/42
[2018-04-24 15:40] LABS: BASO % 0.1 % (0.0-1.0); EOS % 0.1 % (0.0-3.0); HEMATOCRIT 24.6 % (36.0-47.0); LYMPH % 0.5 % (24.0-44.0); MEAN CORPUSCULAR HEMOGLOBIN 26.8 pg (27.0-33.0); MEAN CORPUSCULAR HGB CONC 28.5 g/dl (32.0-36.5); MEAN CORPUSCULAR VOLUME 94.3 fl (80.0-96.0); MONO # 1.5 10^3/uL (0.0-0.8); MONO % 4.3 % (0.0-5.0); NEUTROPHILS % 93.6 % (36.0-66.0); PLATELET COUNT, AUTOMATED 268 10^3/uL (150-450); RED BLOOD COUNT 2.61 10^6/uL (4.00-5.40)
[2018-04-24 16:14] LABS: CALCIUM LEVEL 7.9 MG/DL (8.8-10.2); CREATININE FOR GFR 2.63 MG/DL (0.55-1.30); GLOMERULAR FILTRATION RATE 19.2 (>45); POTASSIUM SERUM 5.3 MEQ/L (3.5-5.1)
[2018-04-24 16:17] LABS: LYMPH # 0.2 10^3/uL (1.5-4.5); NEUTROPHILS # 31.7 10^3/uL (1.8-7.7); WHITE BLOOD COUNT 33.8 10^3/uL (4.0-10.0)
[2018-04-24] MEDS: PIPERACILLIN/TAZOBACTAM SOD 2.25 GM in D5W MINI-BAG PLUS 50 ML IV SCH (17:51)
[2018-04-24] MEDS: NS 1,000 ML IV SCH ×2 (17:51→23:46)
[2018-04-24 20:00] VITALS: BP 97/46
[2018-04-24 20:49] VITALS: BP 100/47
[2018-04-24 21:00] VITALS: BP 100/47
[2018-04-24] MEDS ORDERED: DABIGATRAN ETEXILATE 75 MG CAP (PRADAXA) PO SCH (21:00)
[2018-04-24] MEDS ORDERED: metFORMIN (GLUCOPHAGE) 500 MG TAB PO SCH (21:00)
[2018-04-24] MEDS ORDERED: ATORVASTATIN 20 MG TAB PO SCH (21:00)
[2018-04-24] MEDS ORDERED: METOPROLOL TART 12.5 MG PER 1/2 TAB PO SCH (21:00)
[2018-04-24] MEDS: NYSTATIN 100,000 UNITS/GM TOPICAL PWD 15 GM TOP SCH (21:23)
[2018-04-24] MEDS: ACETAMINOPHEN TAB 650MG DOSE (2X325MG) PO PRN (23:45)
[2018-04-24 23:59] VITALS: BP 100/48
[2018-04-25] VITALS (25 sets, daily range): BP systolic 66–123; BP diastolic 33–56
[2018-04-25 00:38] LABS: HEMATOCRIT 24.5 % (36.0-47.0)
[2018-04-25] MEDS: PIPERACILLIN/TAZOBACTAM SOD 2.25 GM in D5W MINI-BAG PLUS 50 ML IV SCH ×3 (01:52→17:49)
[2018-04-25] MEDS ORDERED: **NOTE PATIENT COMMENT** MISC XX ONE (02:00)
[2018-04-25] MEDS: ACETAMINOPHEN TAB 650MG DOSE (2X325MG) PO PRN (03:39)
--- NOTE | 2018-04-25 04:49 | ECGEPIP ---
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
[2018-04-25 05:09] LABS: HEMATOCRIT 23.3 % (36.0-47.0); MEAN CORPUSCULAR HEMOGLOBIN 26.8 pg (27.0-33.0); MEAN CORPUSCULAR HGB CONC 28.8 g/dl (32.0-36.5); MEAN CORPUSCULAR VOLUME 93.2 fl (80.0-96.0); PLATELET COUNT, AUTOMATED 222 10^3/uL (150-450); WHITE BLOOD COUNT 26.3 10^3/uL (4.0-10.0)
[2018-04-25 05:25] LABS: HEMOGLOBIN 6.7 g/dl (12.0-15.5)
[2018-04-25] MEDS: LEVOTHYROXINE 75MCG TABLET (0.075MG) PO SCH (05:38)
[2018-04-25] MEDS ORDERED: DOPamine HCL 400 MG in APPROPRIATE DILUENT 1 EA IV SCH (05:45)
[2018-04-25 05:54] LABS: ALBUMIN 2.3 GM/DL (3.2-5.2); BILIRUBIN,TOTAL 0.8 MG/DL (0.2-1.0); CALCIUM LEVEL 7.8 MG/DL (8.8-10.2); CREATININE FOR GFR 2.61 MG/DL (0.55-1.30); GLOMERULAR FILTRATION RATE 19.4 (>45); POTASSIUM SERUM 5.4 MEQ/L (3.5-5.1); TOTAL PROTEIN 5.5 GM/DL (6.4-8.2)
[2018-04-25 07:33] LABS: PERCENT SATURATION 3.3 % (13.2-45.0); TROPONIN I 0.17 NG/ML (< 0.10)
[2018-04-25] MEDS: LORATADINE 10 MG TAB PO SCH (08:58)
[2018-04-25] MEDS: CAPSAICIN 0.025% CR 60 GM TOP SCH ×3 (08:58→21:00)
[2018-04-25] MEDS: NYSTATIN 100,000 UNITS/GM TOPICAL PWD 15 GM TOP SCH ×2 (08:59→21:00)
[2018-04-25] MEDS ORDERED: AMIODARONE 200 MG TAB (PACERONE) PO SCH (09:00)
--- NOTE | 2018-04-25 10:37 | IPNPDOC ---
Date Seen The patient was seen on 04/25/18. Progress Note SUBJECTIVE: Patient continues to complain of whole body pain, she tells me is worse in her back in the mid region is mostly midline she tells me is progressively worsened over the last several days prior to her fall at the time of her admission. She tells me that her weight is also increased significantly about 50 pounds since she was last discharged that she has not been checking her daily weights at the present time she complains of some mild shortness of breath and burning in her feet OBJECTIVE PHYSICAL EXAMINATION: VITAL SIGNS: Please see below. GENERAL: Disheveled super morbidly obese elderly woman lying on her left side she appears quite comfortable at the time of my exam she is awake alert oriented 3 and speaking in complete sentences without any accessory muscle use HEENT: Difficult to assess for elevation CVP secondary to body habitus she appears to have moist mucous membranes cranial nerves grossly intact CARDIOVASCULAR: Heart sounds are distant secondary to body habitus S1-S2 appears regular without additional heart sounds at this time. RESPIRATORY: Breath sounds are distant secondary to body habitus she gives me a poor inspiratory effort with exam. Somewhat diminished at the bases ABDOMINAL: Grossly obese. She does have some bruising on her right flank her back is exquisitely tender to palpation throughout without any area being specifically more tender than another EXTREMITIES: 3+ pitting edema and erythema over bilateral feet with exquisite tenderness to even soft palpation LABORATORY DATA, IMAGING STUDIES, MICROBIOLOGY: Please see below. Echocardiogram: Ordered. DVT prophylaxis ordered?: Sequentials teds ASSESSMENT AND PLAN: This is a 68-year-old female who presented with back pain weight gain found to be in shock with T12 compression fracture. PROBLEMS: 1. Shock: And did have a leukocytosis and significantly elevated lactic acid. Although not tachycardic febrile urine was not abnormal urine culture and blood cultures are currently pending her left foot is quite erythematous and as a potential source of infection she is currently on Zosyn and I will broadened to vancomycin as well given her hemodynamic instability overnight. She appears to have a right flank fluid collection and some bruising there in the setting of a T12 fracture and anticoagulation I also concern for retroperitoneal hematoma. We are transfusing HER 2 units of PRBCs at this time. I have no reason to suspect adrenal insufficiency I'll recheck a lactic acid this morning when I examined her her map is 75 I asked nursing staff to discontinue her dopamine as well as her IV fluids in preparation for transfusion of blood products. It appears given her super morbid obesity there checking blood pressures along her right forearm which may be causing some inaccuracy on clinical exam she appears volume overloaded and as such I will hold any further IV fluids unless absolutely necessary and proven by elevated lactic acid. 2. Anemia: Etiology is not immediately clear I'll begin working this up I'll check iron studies peripheral smear occult stool for blood my concern is for retroperitoneal hematoma though we will transfuse HER-2 units of PRBCs and mo nitor hemoglobin closely given the acute drop since her last visit in November I will hold her aspirin Pradaxa my suspicion for any hemolysis his lower. Some of her drop this morning is likely dilutional however she did present with significantly lower hemoglobin at her baseline. We'll recheck hemoglobin at 5 PM 3. Diastolic congestive heart failure: No recent echocardiogram within the last year I will order one at this time. She does appear decompensated with significant volume overload at this time she has received 6 L of IV fluids overnight and was put out greater than 50 pounds as per her records since her last discharge within the last 6 months. With the addition of 2 units of PRBCs and her inability to diurese her in the setting of shock she is certainly at risk for impending respiratory failure and will try to limit further fluids and diuresis when able to place a nephrology consult at this time. She did have a slightly abnormal troponin which I will trend I would not be surprised for it to be somewhat elevated in the setting of demand ischemia EKG however does not appear significantly different. Her baseline oxygen requirement is 1 L she is currently requiring more that I suspect she is developing early pulmonary edema and may necessitate pulmonary consultation I did discuss goals of care as she wishes to be a full code. 4. Back pain: Likely secondary to T12 compression fracture also possibly a small retroperitoneal hematoma either way management is supportive and close monitoring she which she is able recommend PT and pain control for the time being we'll hold off on narcotics with slight drop her blood pressure further 5. Elevated INR: The patient does normally take Pradaxa at home however the INR appears to be disproportionately elevated is unclear to me why this is the case swelling her LFTs are slightly elevated as well she could certainly have some fatty liver disease given her body habitus however she does have right-sided flank pain as well and as such I'll check a liver duplex. We will hold Tylenol and statin 6. Hyperkalemia: The patient is normally on spironolactone and potassium repletion at home these been held. He received significant fluid monitor closely she reported a history of diarrhea however stop days ago we'll recheck a CMP of 5 PM 7. Acute on chronic kidney failure: We'll place nephrology consult she certainly appears volume overloaded on exam however she was hypotensive renal function has had marginal improvement since receiving 6 L of fluid were now providing him with blood products we'll recheck a CMP this evening and follow further recommendations from nephrology service. For the time being her torsemide is on hold while she is hypotensive as her blood pressure could tolerate diuresis would encourage this 8. Super morbid obesity:, Dictating care likely obesity hypoventilation syndrome and likely obstructive sleep apnea as well as well as venous stasis 9. COPD: She is on chronic O2 1 L at the present time she is requiring more oxygen I suspect related pulmonary edema and not secondary to acute decompensation of her COPD we'll start her on nebulizer treatments 10. Coronary artery disease: She is asymptomatic at this time she is volume up her EKG was unchanged we are holding her aspirin she is not on a beta alfreda she is stable on a symptom medic at this time 11. Paroxysmal atrial fibrillation: She is hypotensive at this time I will hold her amiodarone as well as her metoprolol. We're also holding her Pradaxa in the setting of acute anemia 12. Diabetes: Sliding scale and fingersticks hold home metformin 13. Hypothyroidism: Continue with Synthroid Prognosis: Guarded. VS, I&O, 24H, Fishbone Vital Signs/I&O Vital Signs Date Time Temp Pulse Resp B/P (MAP) Pulse Ox O2 Delivery O2 Flow Rate FiO2 04/25/18 10:01 66 18 92/47 (62) 99 Nasal Cannula 3.0 04/25/18 09:00 97.8 I&O- Last 24 Hours up to 6 AM 04/25/18 06:00 Intake Total 7600 ml Output Total 625 ml Balance 6975 ml Laboratory Data 24H LABS Laboratory Tests 2 04/24/18 10:48: White Blood Count 36.7*H, Red Blood Count 2.81L, Hemoglobin 7.7L, Hematocrit 26.7L, Mean Corpuscular Volume 95.0, Mean Corpuscular Hemoglobin 27.4, Mean Corpuscular Hemoglobin Concent 28.8L, Red Cell Distribution Width 17.7H, Platelet Count 344, Neutrophils # (Auto) , Lymphocytes # (Auto) , Nucleated Red Blood Cells % (auto) 0.9H, Neutrophils 95H, Band Neutrophils 3, Monocytes (Manual) 2, Platelet Estimate NORMAL, Hypochromasia 1+, Anisocytosis 1+, Microcytosis 1+, Prothrombin Time 40.1H, Prothromb Time International Ratio 4.01, Activated Partial Thromboplast Time 105.6H, Blood Gas Bicarbonate Standard 16.4, Venous Blood pH 7.234L, Venous Blood Partial Pressure CO2 42.9, Venous Blood Partial Pressure O2 34.1, Venous Blood Total Carbon Dioxide 19.0L, Venous Blood HCO3 17.7L, Venous Blood Oxygen Saturation 52.7L, Venous Blood Base Excess -9.1L, Anion Gap 12, Glomerular Filtration Rate 18.2L, Lactic Acid Level 5.0*H, Calcium Level 8.7L, Aspartate Amino Transf (AST/SGOT) 25, Alanine Aminotransferase (ALT/SGPT) 15, Alkaline Phosphatase 134H, Total Bilirubin 1.2H, Direct Bilirubin 0.5H, Total Creatine Kinase 141, Creatine Kinase MB 4.0H, Creatine Kinase MB Relative Index 3.12, Troponin I 0.12H, C-Reactive Protein, Quantitative 13.30H, Total Protein 7.1, Albumin 3.1L, Albumin/Globulin Ratio 0.78L, Amylase Level 11L 04/24/18 12:12: Blood Gas Bicarbonate Standard 17.8L, Arterial Blood pH 7.304L, Arterial Blood Partial Pressure CO2 36.1, Arterial Blood Partial Pressure O2 86.1, Arterial Blood Total CO2 18.6L, Arterial Blood HCO3 17.5L, Arterial Blood Base Excess - 8.1L, Arterial Blood Oxygen Saturation 95.8 04/24/18 12:34: Influenza Type A (RT-PCR) NEGATIVE, Influenza Type B (RT-PCR) NEGATIVE 04/24/18 12:55: Urine Appearance HAZY, Urine Color YELLOW, Urine pH 5.0, Urine Specific [place] 1.017, Urine Protein NEGATIVE, Urine Glucose (UA) NEGATIVE, Urine Ketones NEGATIVE, Urine Urobilinogen 2.0H, Urine Bilirubin NEGATIVE, Urine Leukocyte Esterase NEGATIVE, Urine Blood NEGATIVE, Urine Nitrite NEGATIVE, Urine WBC (Auto) 1, Urine RBC (Auto) 0, Urine Hyaline Casts (Auto) 15, Urine Bacteria (Auto) 1+H, Urine Squamous Epithelial Cells 0, Urine Mucus (Auto) SMALL, Urine Sperm (Auto) 04/24/18 15:26: Immature Granulocyte % (Auto) 1.4, White Blood Count 33.8*H, Red Blood Count 2.61L, Hemoglobin 7.0L, Hematocrit 24.6L, Mean Corpuscular Volume 94.3, Mean Corpuscular Hemoglobin 26.8L, Mean Corpuscular Hemoglobin Concent 28.5L, Red Cell Distribution Width 17.6H, Platelet Count 268, Neutrophils (%) (Auto) 93.6H, Lymphocytes (%) (Auto) 0.5L, Monocytes (%) (Auto) 4.3, Eosinophils (%) (Auto) 0.1, Basophils (%) (Auto) 0.1, Neutrophils # (Auto) 31.7H, Lymphocytes # (Auto) 0.2L, Monocytes # (Auto) 1.5H, Eosinophils # (Auto) 0.0, Basophils # (Auto) 0.0, Nucleated Red Blood Cells % (auto) 0.7H, Anion Gap 12, Glomerular Filtration Rate 19.2L, Lactic Acid Followup at 4 Hours 4.4*H, Blood Urea Nitrogen 54H, Creatinine 2.63H, Sodium Level 133L, Potassium Level 5.3H, Chloride Level 107, Carbon Dioxide Level 14L, Calcium Level 7.9L 04/25/18 04:41: Nucleated Red Blood Cells % (auto) 1.1H, Anion Gap 7L, Glomerular Filtration Rate 19.4L, Blood Urea Nitrogen 56H, Creatinine 2.61H, Sodium Level 136, Potassium Level 5.4H, Chloride Level 110H, Carbon Dioxide Level 19L, Calcium Level 7.8L, Aspartate Amino Transf (AST/SGOT) 220H, Alanine Aminotransferase (ALT/SGPT) 128H, Alkaline Phosphatase 112, Total Bilirubin 0.8, Total Protein 5.5#L, Albumin 2.3#L, Albumin/Globulin Ratio 0.72L 04/25/18 06:47: Lactic Acid Level 1.4 04/25/18 06:49: Reticulocyte # (auto) 75.6, Differential Slide Review Report, Peripheral Blood Smear Path Consult PERIPHERAL SMEAR, Percent Reticulocyte Count 2.7H, Reticulocyte Hemoglobin Equivalent 19.0L, Iron Level 9L, Total Iron Binding Capacity 276, Transferrin % Saturation 3.3L, Ferritin 64, Troponin I 0.17#H CBC/BMP Laboratory Tests 04/24/18 10:48 Red Blood Count 2.81 L, Mean Corpuscular Volume 95.0, Mean Corpuscular Hemoglobin 27.4, Mean Corpuscular Hemoglobin Concent 28.8 L, Red Cell Distribution Width 17.7 H, Neutrophils # (Auto) , Lymphocytes # (Auto) 04/24/18 15:26 Red Blood Count 2.61 L, Mean Corpuscular Volume 94.3, Mean Corpuscular Hem oglobin 26.8 L, Mean Corpuscular Hemoglobin Concent 28.5 L, Red Cell Distribution Width 17.6 H, Neutrophils # (Auto) 31.7 H, Lymphocytes # (Auto) 0.2 L, Neutrophils (%) (Auto) 93.6 H, Lymphocytes (%) (Auto) 0.5 L, Monocytes (%) (Auto) 4.3, Eosinophils (%) (Auto) 0.1, Basophils (%) (Auto) 0.1, Monocytes # (Auto) 1.5 H, Eosinophils # (Auto) 0.0, Basophils # (Auto) 0.0, Calcium Level 7.9 L 04/24/18 23:54 04/25/18 04:41 Red Blood Count 2.50 L, Mean Corpuscular Volume 93.2, Mean Corpuscular Hemoglobin 26.8 L, Mean Corpuscular Hemoglobin Concent 28.8 L, Red Cell Distribution Width 17.2 H, Calcium Level 7.8 L, Aspartate Amino Transf (AST/SGOT) 220 H, Alanine Aminotransferase (ALT/SGPT) 128 H, Alkaline Phosphatase 112, Total Bilirubin 0.8, Total Protein 5.5 #L, Albumin 2.3 #L Microbiology Microbiology 04/24/18 Blood Culture, Received Pending 04/24/18 Blood Culture, Received Pending 04/24/18 Urine Culture, Received Pending BRITTANY GODFREY MD Apr 25, 2018 10:37
--- NOTE | 2018-04-25 10:38 | REP ---
Clinical: Right upper quadrant pain and elevated liver function tests. Technique: Real time puri scale and color evaluation using curved array transducer as well as color Doppler evaluation of the hepatic vasculature. Findings: Gallbladder appears filled with gallstones causing posterior shadowing. The proximal gallbladder wall is moderately thickened to 4.9 mm. No obvious pericholecystic fluid is appreciated and there is no evidence for biliary ductal dilatation. The common bile duct measures 5.6 mm diameter. The liver is incompletely evaluated due to technical factors and positioning as well as body habitus but diffuse fatty infiltration is appreciated. The pancreas is incompletely evaluated again due to body habitus and technical factors, but visualized portions appear relatively normal. Doppler interrogation demonstrates moderately elevated portal venous velocities with normal flow direction. Main portal vein is dilated to 19 mm. Hepatic veins demonstrate wave patterns suggesting underlying cardiac disease and tricuspid regurgitation. The right kidney is normal in reniform shape and demonstrates cortical thinning and increased central sinus fat along with renovascular calcifications all of which suggest chronic medical renal disease. There is no evidence for hydronephrosis and the kidney measures 10.9 x 6.2 x 5.6 cm. No ascites in the visualized right upper quadrant. Impression: 1. Limited examination demonstrating cholelithiasis and gallbladder wall thickening. 2. Hepatic steatosis. 3. Chronic medical renal disease without hydronephrosis. 4. Doppler interrogation is limited, but there is findings to suggest portal venous hypertension as well as underlying cardiac dysfunction with tricuspid regurgitation. Electronically Signed by Linden Bruno MD 04/25/2018 10:29 A
[2018-04-25] MEDS ORDERED: IPRATROPIUM 0.5MG/ALBUTEROL 2.5MG INH SOL UD 3ML (DUONEB)(J7620) NEB PRN (10:45)
--- NOTE | 2018-04-25 11:04 | PHACANCOPD ---
PHARMACY VANCOMYCIN DOSING Pt Demographics Demographics Patient Age:68 , Weight:173.000 , Gender: female Adjusted Body Weight Date: 04/25/18, Adjusted Body Weight: [104] Kg Events Past 24 Hours Events Past 24 Hours: NO: Dialysis, Diuretic Therapy, Change in CrCl, Fever, Elevation in WBC, Pending Diagnostics, Pending Procedures, Other Vancomycin Vancomycin indication: SEPTIC SHOCK Vancomycin Target Ranges: 10-20 mcg/ml Vancomycin Load Y/N: Yes Load Dose Date Time Vancomycin Load Dose: 2G Date: 04/25/18 Time:11:00 Vancomycin Dose Date: 04/25/18. Current Vancomycin Dose: [1G IV Q24H] Intermittent Dosing?: No Labs Labs Item Value Date Time White Blood Count 36.7 10^3/uL *H 04/24/18 1048 White Blood Count 33.8 10^3/uL *H 04/24/18 1526 White Blood Count 26.3 10^3/uL H 04/25/18 0441 Creatinine 2.76 MG/DL H 04/24/18 1048 Creatinine 2.63 MG/DL H 04/24/18 1526 Creatinine 2.61 MG/DL H 04/25/18 0441 Vital Signs Label Value Date Time Blood Pressure Assessment 92/47 (62) 04/25/18 1001 Blood Pressure Assessment 96/49 (65) 04/25/18 0900 Micro Microbiology 04/24/18 Blood Culture, Received Pending 04/24/18 Blood Culture, Received Pending 04/24/18 Urine Culture, Received Pending Creatinine Clearance Date:04/25/18. Creatinine Clearance: [~34ML/MIN]. Assessment and Plan Maintaining Current Dose?: Yes Reason for dose change: No Dose Change Pharmacist Note Pharmacist Note Date: 04/25/18. Pharmacist note: PT is a 68 year old female being treated with vancomycin for septic shock goal trough 10-20mcg/ml. The patient has been treated with vancomycin here at [facility] in the past most recently 02/2016. The patients renal functioning has decreased since then. To achieve goal a 2g loading dose was started 03/26/18 @ 11. Maintenance therapy will consist of 1g iv q 24h starting 04/26/18 @ 11:00. We will continue to monitor and adjust the dose as needed. [facility] Apr 25, 2018 11:04
[2018-04-25] MEDS: VANCOMYCIN HCL 1,000 MG, VIAL MATE ADAPTER 1 EACH in D5W 250 ML IV SCH (11:05)
[2018-04-25] MEDS ORDERED: VANCOMYCIN HCL 1,000 MG, VIAL MATE ADAPTER 1 EACH in D5W 250 ML IV ONE (12:00)
[2018-04-25] MEDS ORDERED: PHYTONADIONE 5 MG TAB PO ONE (13:30)
[2018-04-25 13:41] LABS: INR 4.32; PROTHROMBIN TIME 42.5 SECONDS (12.1-14.4)
[2018-04-25] MEDS: IPRATROPIUM 0.5MG/ALBUTEROL 2.5MG INH SOL UD 3ML (DUONEB)(J7620) NEB SCH ×2 (14:12→19:32)
--- NOTE | 2018-04-25 15:37 | CR ---
DATE OF CONSULTATION: 04/25/2018 REQUESTING PHYSICIAN: Dr. Jero Meade CONSULTING PHYSICIAN: Dr. Melton REASON FOR CONSULTATION: Management of acute kidney injury superimposed on chronic kidney disease and hyperkalemia. CHIEF COMPLAINT: The patient presented to the emergency room yesterday after a fall at home. 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 She reports that she was feeling very weak and tired at home, her legs just gave out yesterday and she fell at home. She hit her back. She was brought to the emergency room by emergency medical services (EMS). When she arrived in the emergency room, she was found to have hypotension, leukocytosis, lactic acidosis, and sepsis protocol was initiated. She was started on broad spectrum IV antibiotics. She was given aggressive IV fluid hydration. The patient was admitted to the intensive care unit (ICU) under the hospitalist service. Imaging in the emergency room also showed a fracture of T12 vertebral body. The patient remained hypotensive overnight. She needed dopamine infusion in the intensive care unit (ICU). She was also found to be in acute renal failure when she arrived in the emergency room with a creatinine of 2.7 and a potassium of 5.4. The patient has been aggressively hydrated overnight; however, she was still oliguric and there was no sign of improvement in the renal function and so nephrology service was called for further help in the management of this patient with acute kidney injury superimposed on chronic kidney disease stage III. I evaluated the patient this morning in the intensive care unit (ICU). The patient is feeling very weak and lethargic. She was complaining of pain all over the body, especially in her abdomen, in the back and lower extremities. Otherwise, she was able to communicate this morning and she was able to provide some of the history to me. The rest of the history was obtained from the patient's chart. PAST MEDICAL HISTORY: 1. Morbid obesity. 2. Chronic diastolic congestive heart failure (CHF). 3. History of paroxysmal atrial fibrillation. 4. Chronic kidney disease stage III with a baseline creatinine of 1.5. 5. Hypertension. 6. Diabetes mellitus type 2. 7. Hyperlipidemia. 8. Coronary artery disease. 9. Chronic obstructive pulmonary disease (COPD) and obesity hypoventilation, currently oxygen dependent. 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 ALLERGIES: The patient is allergic to VITAMIN D, HEPARIN, SULFA DRUGS. FAMILY HISTORY: No significant family history of end stage renal disease requiring hemodialysis. SOCIAL HISTORY: The patient lives alone. She is a former smoker. She denies any illicit drug abuse or alcohol abuse. REVIEW OF SYSTEMS: CONSTITUTIONAL: The patient reports feeling very weak and tired. EYES: She denies any blurry vision or double vision. ENT: She denies any dysphagia or odynophagia. CARDIOVASCULAR: She denies any chest pain or palpitations. She does report a recent weight gain and lower extremity edema. RESPIRATORY: She denies any shortness of breath at this time, phlegm or cough. GASTROINTESTINAL: She reports that she recently had diarrhea, which has improved. She does report abdominal pain. GENITOURINARY: She denies any dysuria or hematuria. MUSCULOSKELETAL: She reports pain and tenderness in the lower extremities and redness of the lower extremities. She also reports back pain after recent fall. CENTRAL NERVOUS SYSTEM (CORRECTIONAL GUARD): She denies any strokes or seizures. PSYCHIATRIC: She denies any depression or anxiety. ENDOCRINE: She reports a history of diabetes mellitus type 2. HEMATOLOGIC/ONCOLOGIC: She denies any recent bleeding, bruising. All other review of systems are negative. PHYSICAL EXAMINATION: GENERAL: The patient is awake, alert, oriented times three. Morbidly obese, lying in bed in moderate painful distress. VITAL SIGNS: Temperature 98 degrees Fahrenheit, blood pressure 107/52, pulse is 66, respiratory rate of 20, saturating 99% on nasal cannula at 3 liters. HEAD AND NECK EXAM: Extraocular muscles are intact. Pupils are equal, round and reactive to light. Mucous membranes are moist. NECK: Supple. No jugular venous distention (JVD). CARDIOVASCULAR: S1, S2. Regular rate. No murmur, rub or gallop. 2+ edema of the bilateral lower extremities. RESPIRATORY: Decreased breath sounds at the bases. Otherwise, no active rales or rhonchi. ABDOMEN: Soft, morbidly obese, large abdominal pannus. There is a lot of abdominal wall edema. Her pannus is actually hanging down with a lot of fluid. In the back, she has severe costovertebral angle tenderness and a mild amount of erythema in the right sided paraspinal region. MUSCULOSKELETAL: The patient has 2+ edema of the bilateral lower extremities all the way up to her thighs. She has erythema of the bilateral lower extremities and possible cellulitis that are severely tender. CENTRAL NERVOUS SYSTEM (CORRECTIONAL GUARD): No focal deficits. The patient is slightly agitated because of pain. Otherwise, she follows some commands and she was able to communicate with me. SKIN: Erythema with some oozing of fluid from bilateral lower extremities. Otherwise, no rashes or ulcers. LABORATORY REVIEW: CBC showed a WBC of 36.7 on arrival, it is 26.3 right now. Hemoglobin is 6.7. Platelets are 222. INR was 4 on arrival. ABG showed a pH of 7.3, PCO2 of 36, PO2 of 86, bicarbonate is 17.5, oxygen saturation is 95.8%. BMP done this morning showed sodium 136, potassium 5.4, chloride 110, bicarbonate 19, BUN 56, creatinine is 2.6, glucose 102, lactic acid was 4.4 yesterday and it is 1.4 today. Calcium is 7.8, iron 9, TIBC is 276, transferrin saturation is 3.3, ferritin is 6.4, troponin is 0.16, albumin is 2.3. Microbiology: Blood cultures, one out of two, is positive for gram-positive cocci in clusters. IMAGING: Ultrasound of the liver was done, which showed cholelithiasis and gallbladder wall thickening, hepatosteatosis, portal venous hypertension. CAT scan of the abdomen and pelvis was done. Fluid collection in the right flank, significantly limited exam because of body habitus and the patient's movement. CAT scan of the chest was done, which showed mild pneumonitis, stranding within the right flank with possible fluid collection. CAT scan of the lumbar spine was done, which showed nondisplaced fracture of the right anterolateral aspect of T12. ASSESSMENT: 68-year-old female with chronic kidney disease stage III, morbid obesity, chronic diastolic congestive heart failure (CHF), admitted this time with septic shock bacteremia, severe anemia, acute renal failure, hyperkalemia and metabolic acidosis. PLAN: 1. Acute renal failure superimposed on chronic kidney disease stage III, which is secondary to shock, hypervolemia, low blood pressure. Continue to hold home dose of diuretic. The patient has been aggressively hydrated. Blood pressures are better. She has started to make urine. I am hopeful that with improvement of her shock that her renal function will start improving. 2. Hyperkalemia. It is secondary to acute renal failure and metabolic acidosis. Potassium level is 5.4, which is within the acceptable range. No need of Kayexalate administration at this point. Potassium is expected to improve with improvement in the urine output. 3. Metabolic acidosis. It is secondary to acute renal failure and lactic acidosis. Bicarbonate level is 19, which is improving. No need for IV bicarbonate administration at this point. 4. Septic shock and bacteremia, most likely source might be cellulitis in the bilateral lower extremities. The patient is off of dopamine infusion at this point. Blood pressures are improving. Lactic acid is improving. One out of two blood culture is growing gram-positive cocci. She is already empirically being covered with Zosyn. She has been started on vancomycin. 5. Severe anemia. The patient's hemoglobin has dropped to 6.7. She has received 1 unit of packed red blood cell transfusion. Aspirin and Plavix have been stopped. I highly suspect that she might be bleeding in the right flank region where the CAT scan picked up the fluid collection. Continue CBC monitoring every 8 hours. Continue to hold Pradaxa as well. 6. Chronic diastolic congestive heart failure (CHF). The patient is in shock at this time, although she has a lot of edema in the abdominal wall and lower extremities. She is not a candidate for any diuretics at this point. 7. Hypothyroidism. Continue home dose of levothyroxine 75 mcg by mouth daily. 8. Atrial fibrillation. Heart rate is controlled. She cannot receive beta alfreda at this point because of shock and low blood pressures. Anticoagulation is on hold because of possible occult bleeding and severe anemia. 9. Diabetes mellitus type 2. Avoid using metformin in acute renal failure. If needed, the patient can get insulin sliding scale. 10. Coagulopathy. The patient has high INR. She is having bleeding and she is requiring packed red blood cell transfusion. I am going to give her fresh frozen plasma transfusion as well. Thank you for involving me in the care of the patient. I shall be happy to follow the patient along with you tomorrow morning. Total critical care time spent in the management of this patient today in the intensive care unit (ICU) was 50 minutes.
[2018-04-25 17:35] LABS: ALBUMIN 2.3 GM/DL (3.2-5.2); BILIRUBIN,TOTAL 1.1 MG/DL (0.2-1.0); CREATININE FOR GFR 2.4 MG/DL (0.55-1.30); GLOMERULAR FILTRATION RATE 21.4 (>45); POTASSIUM SERUM 4.9 MEQ/L (3.5-5.1); TOTAL PROTEIN 5.7 GM/DL (6.4-8.2)
[2018-04-25 17:51] LABS: HEMATOCRIT 23.8 % (36.0-47.0); MEAN CORPUSCULAR HEMOGLOBIN 27.6 pg (27.0-33.0); MEAN CORPUSCULAR HGB CONC 29.4 g/dl (32.0-36.5); MEAN CORPUSCULAR VOLUME 93.7 fl (80.0-96.0); PLATELET COUNT, AUTOMATED 228 10^3/uL (150-450); RED BLOOD COUNT 2.54 10^6/uL (4.00-5.40); WHITE BLOOD COUNT 20.5 10^3/uL (4.0-10.0)
[2018-04-25] MEDS ORDERED: D5W IV ONE ×2 (19:00→23:00)
[2018-04-25] MEDS ORDERED: D5W MINI IV ONE (19:00)
[2018-04-25] MEDS ORDERED: TRANEXAMIC ACID IV ONE ×3 (19:00→23:00)
[2018-04-26] VITALS (14 sets, daily range): BP systolic 90–123; BP diastolic 50–60
[2018-04-26 00:02] LABS: HEMOGLOBIN 8.2 g/dl (12.0-15.5); MEAN CORPUSCULAR HEMOGLOBIN 27.5 pg (27.0-33.0); MEAN CORPUSCULAR HGB CONC 30.4 g/dl (32.0-36.5); MEAN CORPUSCULAR VOLUME 90.6 fl (80.0-96.0); PLATELET COUNT, AUTOMATED 220 10^3/uL (150-450); RED BLOOD COUNT 2.98 10^6/uL (4.00-5.40); WHITE BLOOD COUNT 19.3 10^3/uL (4.0-10.0)
[2018-04-26] MEDS: IPRATROPIUM 0.5MG/ALBUTEROL 2.5MG INH SOL UD 3ML (DUONEB)(J7620) NEB SCH ×4 (01:25→23:27)
[2018-04-26] MEDS: PIPERACILLIN/TAZOBACTAM SOD 2.25 GM in D5W MINI-BAG PLUS 50 ML IV SCH ×3 (01:27→17:17)
[2018-04-26] MEDS: ONDANSETRON 4MG/2ML VIAL (J2405) IV PRN ×2 (01:28→07:03)
[2018-04-26 05:09] LABS: HEMOGLOBIN 8.3 g/dl (12.0-15.5); MEAN CORPUSCULAR HEMOGLOBIN 27.2 pg (27.0-33.0); MEAN CORPUSCULAR HGB CONC 29.6 g/dl (32.0-36.5); MEAN CORPUSCULAR VOLUME 91.8 fl (80.0-96.0); PLATELET COUNT, AUTOMATED 203 10^3/uL (150-450); RED BLOOD COUNT 3.05 10^6/uL (4.00-5.40); WHITE BLOOD COUNT 18.4 10^3/uL (4.0-10.0)
[2018-04-26 05:26] LABS: ALBUMIN 2.4 GM/DL (3.2-5.2); BILIRUBIN,TOTAL 1.3 MG/DL (0.2-1.0); CREATININE FOR GFR 2.21 MG/DL (0.55-1.30); GLOMERULAR FILTRATION RATE 23.5 (>45); POTASSIUM SERUM 4.9 MEQ/L (3.5-5.1); TOTAL PROTEIN 5.7 GM/DL (6.4-8.2)
[2018-04-26] MEDS: LEVOTHYROXINE 75MCG TABLET (0.075MG) PO SCH (05:53)
[2018-04-26 06:42] LABS: MAGNESIUM LEVEL 2.5 MG/DL (1.8-2.4)
[2018-04-26 06:58] LABS: INR 2.49; PROTHROMBIN TIME 27.4 SECONDS (12.1-14.4)
[2018-04-26] MEDS: LORATADINE 10 MG TAB PO SCH (08:10)
[2018-04-26] MEDS: GABAPENTIN 100 MG CAP PO SCH ×3 (08:11→21:11)
[2018-04-26] MEDS: MAGNESIUM CHLORIDE 64 MG TABCR (SLO MAG) PO SCH (08:11)
[2018-04-26] MEDS: oxyCODONE 5MG TAB PO PRN ×2 (08:11→21:14)
[2018-04-26] MEDS: CAPSAICIN 0.025% CR 60 GM TOP SCH ×3 (08:12→21:12)
[2018-04-26] MEDS: NYSTATIN 100,000 UNITS/GM TOPICAL PWD 15 GM TOP SCH ×2 (08:12→21:00)
[2018-04-26] MEDS: VANCOMYCIN HCL 1,000 MG, VIAL MATE ADAPTER 1 EACH in D5W 250 ML IV SCH ×2 (11:08→12:11)
[2018-04-26] MEDS: CALCITONIN NASAL SPRAY 3.7 ML BTL SCH (11:08)
[2018-04-26 15:41] LABS: TROPONIN I 0.11 NG/ML (< 0.10)
--- NOTE | 2018-04-26 16:14 | IPNPDOC ---
Date Seen The patient was seen on 04/26/18. Progress Note SUBJECTIVE: Patient complains of pain mostly in the mid back in the spinal region not on the sides. She otherwise states her breathing is quite good and has no other specific complaints. She does feel better than yesterday OBJECTIVE PHYSICAL EXAMINATION: VITAL SIGNS: Please see below. GENERAL: Disheveled super morbidly obese elderly woman lying on her left side she appears she occasionally cries out in pain but then goes back to speaking in complete sentences quite commonly HEENT: Difficult to assess for elevation CVP secondary to body habitus she appears to have moist mucous membranes cranial nerves grossly intact CARDIOVASCULAR: Heart sounds are distant secondary to body habitus S1-S2 appears regular without additional heart sounds at this time. RESPIRATORY: Breath sounds are distant secondary to body habitus she gives me a poor inspiratory effort with exam. Somewhat diminished at the bases ABDOMINAL: Grossly obese. She does have some bruising on her right flank she is less tender in her flanks today but has more midline tenderness where her known vertebral fracture is EXTREMITIES: 3+ pitting edema and erythema over bilateral feet with exquisite tenderness to even soft palpation LABORATORY DATA, IMAGING STUDIES, MICROBIOLOGY: Please see below. Echocardiogram: Ordered. DVT prophylaxis ordered?: Sequentials teds ASSESSMENT AND PLAN: This is a 68-year-old female who presented with back pain weight gain found to be in shock with T12 compression fracture. PROBLEMS: 1. Shock hemorrhagic versus septic: She did have leukocytosis and elevated lactic acid although for source we have no definite source her feet are suspicious for possible soft tissue infection. 1 of 2 blood cultures positive which I suspect is more contaminated she has improved on antibiotics we'll continue to follow up her cultures and narrow spectrum as appropriate. Given her acute anemia right flank fluid collection recent fall and anticoagulation there was certainly concern for retroperitoneal hematoma as well anticoagulations and antiplatelets have been held. At this time she is more hemodynamically stable lactic acid is normalized and her acidosis has resolved she is no longer requiring any fluids or pressors 2. Anemia: Possibly acute on chronic secondary to retroperitoneal bleed we are holding her anticoagulation peripheral smear and iron studies are suggestive of a combination of iron deficiency and anemia of chronic disease I suspect acute blood loss on top of this as well anticoagulation and antiplatelets have been held she's been transfused 3 units of PRBCs total we will continue to monitor H&H closely. If she truly has a retroperitoneal hematoma I suspect it will temp in on itself off and will continue with supportive care would ideally like to keep hemoglobin greater than 8 given her slightly abnormal troponin upon presentation 3. Diastolic congestive heart failure: No recent echocardiogram within the last year I have ordered one. She does appear decompensated with significant volume overload at this time she has received 6 L of IV fluids and 3 units of blood and has prior to this already gained greater than 50 pounds as per her records since her last discharge within the last 6 months. She is certainly at risk for impending respiratory failure and will try to limit further fluids and begin diuresis when able nephrology's guidance is greatly appreciated. She did have a slightly abnormal troponin which has plateaued I would not be surprised for it to be somewhat elevated in the setting of demand ischemia EKG however does not appear significantly different. Her baseline oxygen requirement is 1 L she is currently requiring slightly more. 4. Back pain: Likely secondary to T12 compression fracture also possibly a small retroperitoneal hematoma either way management is supportive and close monitoring. I will start her on low-dose Roxicodone calcitonin and gabapentin in order to better manage her pain and encourage her to be out of bed work with physical therapy now that her blood pressure is more stabilized 5. Elevated INR: The patient does normally take Pradaxa at home however the INR appears to be disproportionately elevated is unclear to me why this is the case, perhaps her renal function deteriorated in the setting of sepsis or hemorrhage causing her Pradaxa dosed enter a toxic range and further elevating her INR. We'll hold her Tylenol and statin as her liver function tests appear to be trending down today she likely had some acute hepatitis in the setting of her hypotension 6. Hyperkalemia: resolved nephrology help appreciated 7. Acute on chronic kidney failure: nephrology consult appreciated, appears to be improving perhaps she can start some gentle diuresis in the coming days home diuretics are on hold 8. Super morbid obesity: Complicating care, likely obesity hypoventilation syndrome and likely obstructive sleep apnea as well as well as venous stasis 9. COPD: She is on chronic O2 1 L at the present time she is requiring more oxygen I suspect related to some pulmonary edema and not secondary to acute d ecompensation of her COPD we'll start her on nebulizer treatments 10. Coronary artery disease: She is asymptomatic at this time she is volume up her EKG was unchanged we are holding her aspirin she is not on a beta alfreda she is stable on a symptom medic at this time 11. Paroxysmal atrial fibrillation: She was hypotensive at admission I will hold her amiodarone as well as her metoprolol potentially restarting coming days. We're also holding her Pradaxa in the setting of acute anemia 12. Diabetes: Sliding scale and fingersticks hold home metformin 13. Hypothyroidism: Continue with Synthroid Prognosis: Stable for transfer to the medical surgical floor VS, I&O, 24H, Fishbone Vital Signs/I&O Vital Signs Date Time Temp Pulse Resp B/P (MAP) Pulse Ox O2 Delivery O2 Flow Rate FiO2 04/26/18 14:00 97.2 82 20 93/50 (64) 89 Nasal Cannula 3.0 I&O- Last 24 Hours up to 6 AM 04/26/18 06:00 Intake Total 2690 ml Output Total 1875 ml Balance 815 ml Laboratory Data 24H LABS Laboratory Tests 2 04/25/18 17:02: Nucleated Red Blood Cells % (auto) 1.2H, Anion Gap 8, Glomerular Filtration Rate 21.4L, Blood Urea Nitrogen 53H, Creatinine 2.40H, Sodium Level 137, Potassium Level 4.9, Chloride Level 108H, Carbon Dioxide Level 21, Calcium Level 8.0L, Aspartate Amino Transf (AST/SGOT) 188H, Alanine Aminotransferase (ALT/SGPT) 126H, Alkaline Phosphatase 100, Total Bilirubin 1.1H, Total Protein 5.7L, Albumin 2.3L, Albumin/Globulin Ratio 0.68L 04/25/18 23:53: Nucleated Red Blood Cells % (auto) 2.0H, Fibrinogen 461H 04/26/18 04:46: Nucleated Red Blood Cells % (auto) 1.5H, Anion Gap 7L, Glomerular Filtration Rate 23.5L, Blood Urea Nitrogen 49H, Creatinine 2.21H, Sodium Level 138, Potassium Level 4.9, Chloride Level 110H, Carbon Dioxide Level 21, Calcium Level 8.0L, Aspartate Amino Transf (AST/SGOT) 145H, Alanine Aminotransferase (ALT/SGPT) 114H, Alkaline Phosphatase 107, Total Bilirubin 1.3H, Total Protein 5.7L, Albumin 2.4L, Albumin/Globulin Ratio 0.73L, Magnesium Level 2.5H 04/26/18 06:11: Prothrombin Time 27.4H, Prothromb Time International Ratio 2.49 04/26/18 10:24: Whole Blood Ionized Calcium 4.6 CBC/BMP Laboratory Tests 04/25/18 17:02 Red Blood Count 2.54 L, Mean Corpuscular Volume 93.7, Mean Corpuscular Hemoglobi n 27.6, Mean Corpuscular Hemoglobin Concent 29.4 L, Red Cell Distribution Width 17.2 H, Calcium Level 8.0 L, Aspartate Amino Transf (AST/SGOT) 188 H, Alanine Aminotransferase (ALT/SGPT) 126 H, Alkaline Phosphatase 100, Total Bilirubin 1.1 H, Total Protein 5.7 L, Albumin 2.3 L 04/25/18 23:53 Red Blood Count 2.98 L, Mean Corpuscular Volume 90.6, Mean Corpuscular Hemoglobin 27.5, Mean Corpuscular Hemoglobin Concent 30.4 L, Red Cell Distribution Width 16.8 H 04/26/18 04:46 Red Blood Count 3.05 L, Mean Corpuscular Volume 91.8, Mean Corpuscular Hemoglo bin 27.2, Mean Corpuscular Hemoglobin Concent 29.6 L, Red Cell Distribution Width 17.2 H, Calcium Level 8.0 L, Aspartate Amino Transf (AST/SGOT) 145 H, Alanine Aminotransferase (ALT/SGPT) 114 H, Alkaline Phosphatase 107, Total Bilirubin 1.3 H, Total Protein 5.7 L, Albumin 2.4 L Microbiology Microbiology 04/25/18 Blood Culture - Preliminary, Resulted No growth after 24 hours . All specim... 04/24/18 Blood Culture - Preliminary, Resulted No Growth after 48 hours. All Specime... 04/24/18 Blood Culture - Preliminary, Resulted 04/24/18 Urine Culture - Final, Complete BRITTANY GODFREY MD Apr 26, 2018 16:14
[2018-04-26] MEDS: FUROSEMIDE 40 MG/4 ML VIAL (J1940) IV SCH (16:28)
[2018-04-26 19:03] LABS: HEMATOCRIT 27.6 % (36.0-47.0); HEMOGLOBIN 8.3 g/dl (12.0-15.5)
[2018-04-27] MEDS: PIPERACILLIN/TAZOBACTAM SOD 2.25 GM in D5W MINI-BAG PLUS 50 ML IV SCH ×3 (01:58→17:31)
[2018-04-27] MEDS: IPRATROPIUM 0.5MG/ALBUTEROL 2.5MG INH SOL UD 3ML (DUONEB)(J7620) NEB SCH ×4 (04:17→18:34)
[2018-04-27] MEDS: LEVOTHYROXINE 75MCG TABLET (0.075MG) PO SCH (05:37)
[2018-04-27 06:00] VITALS: BP 107/53
[2018-04-27 06:48] LABS: HEMATOCRIT 30.4 % (36.0-47.0); HEMOGLOBIN 8.9 g/dl (12.0-15.5); MEAN CORPUSCULAR HEMOGLOBIN 27.1 pg (27.0-33.0); MEAN CORPUSCULAR HGB CONC 29.3 g/dl (32.0-36.5); MEAN CORPUSCULAR VOLUME 92.7 fl (80.0-96.0); PLATELET COUNT, AUTOMATED 189 10^3/uL (150-450); RED BLOOD COUNT 3.28 10^6/uL (4.00-5.40)
[2018-04-27 06:49] LABS: ALBUMIN 2.5 GM/DL (3.2-5.2); BILIRUBIN,TOTAL 0.9 MG/DL (0.2-1.0); CALCIUM LEVEL 8.3 MG/DL (8.8-10.2); CREATININE FOR GFR 2.01 MG/DL (0.55-1.30); GLOMERULAR FILTRATION RATE 26.2 (>45); POTASSIUM SERUM 4.9 MEQ/L (3.5-5.1); TOTAL PROTEIN 6.2 GM/DL (6.4-8.2)
[2018-04-27 06:51] LABS: INR 1.87; PROTHROMBIN TIME 21.9 SECONDS (12.1-14.4)
[2018-04-27] MEDS: FUROSEMIDE 40 MG/4 ML VIAL (J1940) IV SCH ×2 (09:28→16:43)
[2018-04-27] MEDS: NYSTATIN 100,000 UNITS/GM TOPICAL PWD 15 GM TOP SCH ×2 (09:28→21:21)
[2018-04-27] MEDS: CAPSAICIN 0.025% CR 60 GM TOP SCH ×3 (09:29→21:22)
[2018-04-27] MEDS: GABAPENTIN 100 MG CAP PO SCH ×3 (09:29→21:20)
[2018-04-27] MEDS: LORATADINE 10 MG TAB PO SCH (09:29)
[2018-04-27] MEDS: CALCITONIN NASAL SPRAY 3.7 ML BTL SCH (09:32)
[2018-04-27] MEDS: oxyCODONE 5MG TAB PO PRN ×2 (09:33→21:21)
--- NOTE | 2018-04-27 10:57 | IPNPDOC ---
Date Seen The patient was seen on 04/27/18. Progress Note SUBJECTIVE: Patient tells me that her back pain is much improved today she tells me she slept a great deal last night and is feeling much better at this time she has no specific complaints. OBJECTIVE PHYSICAL EXAMINATION: VITAL SIGNS: Please see below. GENERAL: Disheveled super morbidly obese elderly woman lying on her left side sleeping comfortably she is in no acute distress easily arousable to verbal stimuli HEENT: Difficult to assess for elevation CVP secondary to body habitus she appears to have moist mucous membranes cranial nerves grossly intact CARDIOVASCULAR: Heart sounds are distant secondary to body habitus S1-S2 appears regular without additional heart sounds at this time. RESPIRATORY: Breath sounds are distant secondary to body habitus she gives me a poor inspiratory effort with exam. ABDOMINAL: Grossly obese. No tenderness to palpation EXTREMITIES: 2+ pitting edema and erythema over bilateral feet with exquisite tenderness to even soft palpation, feet do appear less erythematous and improved today from the previous days exam LABORATORY DATA, IMAGING STUDIES, MICROBIOLOGY: Please see below. Echocardiogram: Ordered. DVT prophylaxis ordered?: Sequentials teds ASSESSMENT AND PLAN: This is a 68-year-old female who presented with back pain weight gain found to be in shock with T12 compression fracture. PROBLEMS: 1. Shock hemorrhagic versus septic: She did have leukocytosis which is downtrending and elevated lactic acid although we have no definite source her feet are suspicious for possible soft tissue infection. 1 of 2 blood cultures positive which I suspect is more contaminated she has improved on antibiotics we'll continue to follow up her cultures and narrow spectrum as appropriate. Given her acute anemia right flank fluid collection recent fall and anticoagulation there was certainly concern for retroperitoneal hematoma as well anticoagulations and antiplatelets have been held. At this time she is more hemodynamically stable lactic acid is normalized and her acidosis has resolved she is no longer requiring any fluids or pressors. Appears to have resolved 2. Anemia: Possibly acute on chronic secondary to retroperitoneal bleed we are holding her anticoagulation peripheral smear and iron studies are suggestive of a combination of iron deficiency and anemia of chronic disease I suspect acute blood loss on top of this as well anticoagulation and antiplatelets have been held she's been transfused 3 units of PRBCs total we will continue to monitor H&H closely and has remained stable. If she truly has a retroperitoneal hematoma I suspect it will temponade on itself off and will continue with supportive care would ideally like to keep hemoglobin greater than 8 given her slightly abnormal troponin upon presentation 3. Diastolic congestive heart failure: No recent echocardiogram within the last year I have ordered one. She does appear decompensated with significant volume overload at this time she has received 6 L of IV fluids and 3 units of blood and has prior to this already gained greater than 50 pounds as per her records since her last discharge within the last 6 months. She did have a slightly abnormal troponin which has plateaued I would not be surprised for it to be somewhat elevated in the setting of demand ischemia EKG however does not appear significantly different. Her baseline oxygen requirement is 1 L she is currently requiring slightly more. 4. Back pain: Likely secondary to T12 compression fracture also possibly a small retroperitoneal hematoma either way management is supportive and close m onitoring. I have started her on low-dose Roxicodone calcitonin and gabapentin and encourage her to be out of bed work with physical therapy now that her blood pressure is more stabilized 5. Elevated INR: Resolved, The patient does normally take Pradaxa at home however the INR appears to be disproportionately elevated is unclear to me why this is the case, perhaps her renal function deteriorated in the setting of sepsis or hemorrhage causing her Pradaxa dosed enter a toxic range and further elevating her INR. We'll hold her Tylenol and statin as her liver function tests appear to be trending down today she likely had some acute hepatitis in the setting of her hypotension 6. Hyperkalemia: resolved nephrology help appreciated 7. Acute on chronic kidney failure: Resolving ,nephrology consult appreciated, appears to be improving perhaps she can start some gentle diuresis in the coming days home diuretics are on hold 8. Super morbid obesity: Complicating care, likely obesity hypoventilation syndrome and likely obstructive sleep apnea as well as well as venous stasis 9. COPD: She is on chronic O2 1 L at the present time she is requiring more oxygen I suspect related to some pulmonary edema and not secondary to acute decompensation of her COPD we'll start her on nebulizer treatments 10. Coronary artery disease: She is asymptomatic at this time she is volume up her EKG was unchanged we are holding her aspirin she is not on a beta alfreda she is stable on a symptom medic at this time 11. Paroxysmal atrial fibrillation: She was hypotensive at admission I will hold her amiodarone as well as her metoprolol potentially restarting coming days. We're also holding her Pradaxa in the setting of acute anemia 12. Diabetes: Sliding scale and fingersticks hold home metformin 13. Hypothyroidism: Continue with Synthroid Prognosis: Clinically improving VS, I&O, 24H, Fishbone Vital Signs/I&O Vital Signs Date Time Temp Pulse Resp B/P (MAP) Pulse Ox O2 Delivery O2 Flow Rate FiO2 04/27/18 09:33 18 04/27/18 06:00 97.4 78 107/53 (71) 96 Nasal Cannula 3.0 I&O- Last 24 Hours up to 6 AM 04/27/18 06:00 Intake Total 590 ml Output Total 2000 ml Balance -1410 ml Laboratory Data 24H LABS Laboratory Tests 2 04/27/18 06:18: Nucleated Red Blood Cells % (auto) 2.2H, Prothrombin Time 21.9H, Prothromb Time International Ratio 1.87, Anion Gap 6L, Glomerular Filtration Rate 26.2L, Blood Urea Nitrogen 43H, Creatinine 2.01H, Sodium Level 136, Potassium Level 4.9, Chloride Level 109H, Carbon Dioxide Level 21, Calcium Level 8.3L, Aspartate Amino Transf (AST/SGOT) 81H, Alanine Aminotransferase (ALT/SGPT) 98H, Alkaline Phosphatase 111, Total Bilirubin 0.9, Total Protein 6.2L, Albumin 2.5L, Albumin/Globulin Ratio 0.68L 04/27/18 10:03: CBC/BMP Laboratory Tests 04/26/18 18:50 04/27/18 06:18 Red Blood Count 3.28 L, Mean Corpuscular Volume 92.7, Mean Corpuscular Hemoglobin 27.1, Mean Corpuscular Hemoglobin Concent 29.3 L, Red Cell Distribution Width 17.3 H, Calcium Level 8.3 L, Aspartate Amino Transf (AST/SGOT) 81 H, Alanine Aminotransferase (ALT/SGPT) 98 H, Alkaline Phosphatase 111, Total Bilirubin 0.9, Total Protein 6.2 L, Albumin 2.5 L Microbiology Microbiology 04/25/18 Blood Culture - Preliminary, Resulted No growth after 24 hours . All specim... 04/24/18 Blood Culture - Preliminary, Resulted No Growth after 48 hours. All Specime... 04/24/18 Blood Culture - Final, Complete Staphylococcus Capitis 04/24/18 Urine Culture - Final, Complete GODFREY,NAZEEL MD Apr 27, 2018 10:57
[2018-04-27] MEDS: VANCOMYCIN HCL 1,000 MG, VIAL MATE ADAPTER 1 EACH in D5W 250 ML IV SCH ×2 (12:08→13:20)
[2018-04-27 14:00] VITALS: BP 103/57
--- NOTE | 2018-04-27 15:14 | IPN ---
DATE OF SERVICE: 04/26/2018 SUBJECTIVE: Patient was seen and examined at the bedside today morning in the intensive care unit (ICU). Patient is hemodynamically more stable today. She is getting serial CBC monitoring. She has gotten 3 units of packed red blood cells (PRBC) transfusion done so far. Her urine output is improving now. There is slight improvement in the creatinine today from 2.4 to 2.2 today and patient is afebrile now. Her lactic acid also improved yesterday with aggressive fluid and blood transfusion. Patient still reports feeling very weak and tired, however, she does report that she is hungry and she has a good appetite today. OBJECTIVE: VITAL SIGNS: Temperature is 98 degrees Fahrenheit, blood pressure is 105/54, pulse is 83, respiratory rate of 24, saturating 98% on nasal cannula at 2 liters. INTAKE AND OUTPUT: Urine output recorded as 1.9 liters yesterday, 825 mL so far today since overnight. Weight in the bed scale is 175.8 kg. PHYSICAL EXAMINATION: GENERAL: The patient is awake, alert and oriented times three. Laying in bed in left lateral position, morbidly obese. HEAD AND NECK EXAM: Pupils are equally round and reactive to light. Mucous membranes are moist. NECK: Supple. I could not appreciate jugular venous distention (JVD) because of body habitus. CARDIOVASCULAR: S1, S2. Regular rate. About 2+ edema of the bilateral lower extremities. RESPIRATORY: Mildly decreased breath sounds at the bases, otherwise no active rales or rhonchi. ABDOMEN: Morbidly obese. Alot of edema of abdominal pannus which is hanging on the left side. I could not appreciate any organomegaly because of the body habitus. MUSCULOSKELETAL: Patient has erythema and severe tenderness of the bilateral lower extremities and because of the edema. There is some fluid oozing from both lower extremity ulcerations. CENTRAL NERVOUS SYSTEM (DIRECTOR CHANNEL): No focal neurological deficit. Patient is able to communicate. She follows commands and moves upper extremities. PSYCH: Patient has a depressed mood at this point. LABORATORY REVIEW: Showed a WBC of 18.4, hemoglobin is 8.3, platelets are 203. INR is 2.4 today. BMP showed a sodium of 138, potassium 4.9, chloride 110, bicarbonate 21, BUN 49, creatinine is 2.2, calcium is 8, INR calcium is 4.6, magnesium 2.5, total bilirubin is 1.3, troponin is 0.11, albumin is 2.4. MICROBIOLOGY: Blood culture reading from 04/24/2018 is showing gram-positive cocci in clusters. CURRENT INPATIENT MEDICATIONS: The patient's medications are all reviewed by me, she was given tranexamic acid one dose yesterday. She continues to be Zosyn and vancomycin. She has been started on calcitonin nasal spray because of spinal fracture. I started her on Lasix 40 mg IV twice a say with holding parameters. No other change in her medications today as compared with yesterday. ASSESSMENT AND PLAN: 1. Acute renal failure superimposed on chronic kidney disease stage 3. Patient's renal function is improving now. Her urine output is better with improvement in her shock and volume status. Because of significant fluid overload I am going to start on her IV Lasix with hold parameters. First dose will be given in the morning. Continue to monitor intake and output. 2. Shock. Probably septic versus hemorrhagic. Patient had leukocytosis, lactic acidosis and anemia on arrival. She got aggressive blood transfusion. Blood count has improved. White cell count is also improving. She is hemodynamically stable. Continue empiric antibiotics. She has one of the two blood cultures positive. Final sensitivity report is pending. Continue dose of vancomycin and Zosyn at this point. 3. Severe anemia and supratherapeutic INR. Patient was given 3 units of packed red blood cells (PRBC) transfusion. Hemoglobin is stable. She was also given tranexamic acid because of high INR yesterday. She was on Eliquis which is on hold. Patient likely has paraspinal low retroperitoneal bleeding after a fall. 4. Spinal fracture. Patient has been on started on calcitonin because of the spinal fracture. Continue to monitor calcium levels. Patient is allergic to vitamin D. I would start her on calcium tablets only. 5. Chronic diastolic congestive heart failure. Patient is out of shock now. She has significant volume overload. I have started her on a low dose of Lasix 40 mg IV twice a day. 6. Atrial fibrillation. Heart rate is controlled. Anticoagulation on hold because of severe anemia and possible retroperitoneal bleed. No beta blockers at this time because of low blood pressure.
[2018-04-27 22:00] VITALS: BP 86/42
[2018-04-28] MEDS: PIPERACILLIN/TAZOBACTAM SOD 2.25 GM in D5W MINI-BAG PLUS 50 ML IV SCH ×3 (01:21→17:41)
[2018-04-28] MEDS: IPRATROPIUM 0.5MG/ALBUTEROL 2.5MG INH SOL UD 3ML (DUONEB)(J7620) NEB SCH ×4 (05:21→20:00)
[2018-04-28 06:00] VITALS: BP 105/83
[2018-04-28] MEDS: LEVOTHYROXINE 75MCG TABLET (0.075MG) PO SCH (06:00)
[2018-04-28 06:16] LABS: HEMATOCRIT 31.9 % (36.0-47.0); HEMOGLOBIN 9.1 g/dl (12.0-15.5); MEAN CORPUSCULAR HEMOGLOBIN 27.3 pg (27.0-33.0); MEAN CORPUSCULAR HGB CONC 28.5 g/dl (32.0-36.5); MEAN CORPUSCULAR VOLUME 95.8 fl (80.0-96.0); PLATELET COUNT, AUTOMATED 244 10^3/uL (150-450); RED BLOOD COUNT 3.33 10^6/uL (4.00-5.40); WHITE BLOOD COUNT 19.1 10^3/uL (4.0-10.0)
[2018-04-28 06:27] LABS: INR 1.67; PROTHROMBIN TIME 19.9 SECONDS (12.1-14.4)
[2018-04-28 06:35] LABS: ALBUMIN 2.7 GM/DL (3.2-5.2); BILIRUBIN,TOTAL 0.9 MG/DL (0.2-1.0); CALCIUM LEVEL 8.4 MG/DL (8.8-10.2); CREATININE FOR GFR 2.58 MG/DL (0.55-1.30); GLOMERULAR FILTRATION RATE 19.7 (>45); POTASSIUM SERUM 5.4 MEQ/L (3.5-5.1); TOTAL PROTEIN 6.7 GM/DL (6.4-8.2)
[2018-04-28] MEDS: GABAPENTIN 100 MG CAP PO SCH ×3 (08:41→21:18)
[2018-04-28] MEDS: LORATADINE 10 MG TAB PO SCH (08:42)
[2018-04-28] MEDS: NYSTATIN 100,000 UNITS/GM TOPICAL PWD 15 GM TOP SCH ×2 (08:42→21:19)
[2018-04-28] MEDS: oxyCODONE 5MG TAB PO PRN (08:42)
[2018-04-28] MEDS: CAPSAICIN 0.025% CR 60 GM TOP SCH ×3 (08:43→21:19)
--- NOTE | 2018-04-28 12:06 | IPN ---
DATE: 04/27/2018 SUBJECTIVE: Patient was seen and examined at the bedside today morning. Patient is afebrile. She is hemodynamically much more stable. She is tolerating low dose of Lasix. She is making more urine. Renal function continues to improve. Creatinine is down to 2; however, patient still reports that she is feeling very weak and tired and lethargic. She is unable to get up from the bed and she is still complaining of pain in the back. Leukocytosis is improving now. OBJECTIVE: VITAL SIGNS: Temperature 97.4 degrees Fahrenheit, blood pressure 107/53, pulse 78, respiratory rate 20, saturating 96% on nasal cannula at 3 liters. INTAKE AND OUTPUT: Urine output recorded as 1700 mL yesterday, 600 mL today since overnight. Weight in the bed scale is not available. PHYSICAL EXAMINATION: GENERAL: Patient is awake, alert, oriented times three, morbidly obese, laying in bed in left lateral position. HEAD AND NECK EXAMINATION: Extraocular muscles intact. Pupils equally round and reactive to light. Mucous membranes are moist. Neck is supple. There could not appreciate jugular venous distention (JVD). Patient is morbidly obese. CARDIOVASCULAR: S1, S2. 2+ edema of the bilateral lower extremities. RESPIRATORY: Mildly decreased breath sounds at the bases bilaterally. Otherwise, no active rales or rhonchi. ABDOMEN: Morbidly obese. A lot of abdominal wall edema in her abdominal panus. MUSCULOSKELETAL: She has erythema, tenderness and edema of the bilateral lower extremities. Some blisters of the lower extremities from edema and there is some fluid oozing from the blisters. CENTRAL NERVOUS SYSTEM: No focal deficits. Patient is feeling very weak. Otherwise, she is able to communicate and she moves upper extremities. LABORATORY REVIEW: Complete blood count (CBC) showed a WBC of 15, hemoglobin 8.9, platelets of 189. INR is 1.8. Basic metabolic panel (BMP) showed sodium 136, potassium 4.9, chloride 109, bicarbonate 21, BUN 43, creatinine 2 (it was 2.2 yesterday), calcium 8.3. AST 81, ALT 98, which are improving, albumin 2.5. MICROBIOLOGY: Blood cultures, one out of two from 04/24/2018, is growing Staphylococcus capitus. CURRENT INPATIENT MEDICATIONS: Patient's medications were all reviewed by me. She continues to be on intravenous (IV) Zosyn and IV vancomycin. She is also tolerating Lasix 40 mg IV twice a day. ASSESSMENT AND PLAN: 1. Acute renal failure superimposed on chronic kidney disease stage III. Acute renal failure was secondary to shock and hypotension. Patient's renal function is improving. She is tolerating the Lasix. Continue to monitor daily intake and output. Creatinine is down to 2 today. 2. Status post shock. Probably, it was a combination of septic and hemorrhagic shock. She was given packed red blood cells transfusions and aggressive IV fluid hydration. She is out of shock now. Blood pressures are acceptable now. She is tolerating the low dose of diuretics because of anasarca. Continue Zosyn and vancomycin for now. Patient has Staphylococcus capitus bacteremia, which is sensitive to the current antibiotics. 3. Acute blood loss anemia. Patient's hemoglobin is 8.9. She is status post 3 units of packed red blood cells transfusion. Hemoglobin is better now. 4. Chronic diastolic congestive heart failure. Patient is significantly volume overloaded. Continue current dose of Lasix 40 mg IV twice a day. Once she is hemodynamically more stable, I would increase the dose of diuretics. 5. Atrial fibrillation. Heart rate is controlled. Anticoagulation is on hold because of severe anemia. She cannot tolerate beta-blockers at this point. 6. Cellulitis of the bilateral lower extremities. Patient most likely has a combination of chronic bilateral lower extremity edema and cellulitis of the legs. Continue diuretics, as mentioned above. Continue current antibiotics. Cellulitis is improving. 7. Spinal fracture. Patient is currently on calcitonin. Okay to continue current dose. Calcium level is within the acceptable range at this point.
--- NOTE | 2018-04-28 13:32 | IPNPDOC ---
Date Seen The patient was seen on 04/28/18. Progress Note SUBJECTIVE: Patient complains of fatigue and weakness she tells me she was only able to roll over in bed yesterday she was not able to get out of bed. She tells me that her pain is better controlled and she was able to sleep she otherwise denies any other complaints or changes in her status OBJECTIVE PHYSICAL EXAMINATION: VITAL SIGNS: Please see below. GENERAL: Disheveled super morbidly obese elderly woman lying on her left side she is in no acute distress oriented 3 and speaking in complete sentences HEENT: Difficult to assess for elevation CVP secondary to body habitus she appears to have moist mucous membranes cranial nerves grossly intact CARDIOVASCULAR: Heart sounds are distant secondary to body habitus S1-S2 appears regular RESPIRATORY: Breath sounds are distant secondary to body habitus ABDOMINAL: Grossly obese. No tenderness to palpation EXTREMITIES: 1+ pitting edema improved erythema of the bilateral feet LABORATORY DATA, IMAGING STUDIES, MICROBIOLOGY: Please see below. Echocardiogram: Patient initially refused reordered at this time DVT prophylaxis ordered?: Sequentials teds ASSESSMENT AND PLAN: This is a 68-year-old female who presented with back pain weight gain found to be in shock with T12 compression fracture. PROBLEMS: 1. Shock hemorrhagic versus septic: She did have leukocytosis which was improving but is now trending although we have no definite source her feet are suspicious for possible soft tissue infection. 1 of 2 blood cultures positive which I suspect is more contaminated she has improved on antibiotics we'll continue to follow up her cultures at this time I'll discontinue vancomycin. Given her acute anemia right flank fluid collection recent fall and anticoagulation there was certainly concern for retroperitoneal hematoma as well, anticoagulations and antiplatelets have been held. At this time she is hemodynamically stable 2. Anemia: Possibly acute on chronic secondary to retroperitoneal bleed we are holding her anticoagulation peripheral smear and iron studies are suggestive of a combination of iron deficiency and anemia of chronic disease I suspect acute blood loss on top of this as well anticoagulation and antiplatelets have been held she's been transfused 3 units of PRBCs total we will continue to monitor H &H closely and has remained stable. If she truly has a retroperitoneal hematoma I suspect it will temponade on itself off and will continue with supportive care would ideally like to keep hemoglobin greater than 8 given her slightly abnormal troponin upon presentation. She has remained stable 3. Diastolic congestive heart failure: No recent echocardiogram within the last year patient refused her initial attempt we will reattempt 1 after some counseling. She does appear to be less decompensated after some diuresis yesterday. She did have a slightly abnormal troponin which has plateaued I would not be surprised for it to be somewhat elevated in the setting of demand ischemia EKG however does not appear significantly different. Her baseline oxygen requirement is 1 L she is currently requiring slightly more. 4. Back pain: Likely secondary to T12 compression fracture also possibly a small retroperitoneal hematoma either way management is supportive and close monitoring. I have started her on low-dose Roxicodone and gabapentin and encourage her to be out of bed work with physical therapy now that her blood pressure is more stabilized 5. Elevated INR: Resolved, The patient does normally take Pradaxa at home however the INR appears to be disproportionately elevated is unclear to me why this is the case, perhaps her renal function deteriorated in the setting of sepsis or hemorrhage causing her Pradaxa dosed enter a toxic range and further elevating her INR. We'll hold her Tylenol and statin as her liver function tests appear to be trending down today she likely had some acute hepatitis in the setting of her hypotension 6. Hyperkalemia: resolved nephrology help appreciated 7. Acute on chronic kidney failure: Was improving however after some diuresis yesterday she did have an acute bump in her creatinine it is strange given that she did not massively diuresis we will hold her diuretics nephrotoxic medications at this time her renal function very closely 8. Super morbid obesity: Complicating care, likely obesity hypoventilation syndrome and likely obstructive sleep apnea as well as well as venous stasis 9. COPD: She is on chronic O2 1 L at the present time she is requiring more oxygen I suspect related to some pulmonary edema and not secondary to acute decompensation of her COPD we'll start her on nebulizer treatments 10. Coronary artery disease: She is asymptomatic at this time she is volume up her EKG was unchanged we are holding her aspirin she is not on a beta alfreda she is stable on a symptom medic at this time 11. Paroxysmal atrial fibrillation: She was hypotensive at admission I will hold her amiodarone as well as her metoprolol potentially restarting coming days. We're also holding her Pradaxa in the setting of acute anemia 12. Diabetes: Sliding scale and fingersticks hold home metformin 13. Hypothyroidism: Continue with Synthroid Prognosis: Guarded VS, I&O, 24H, Fishbone Vital Signs/I&O Vital Signs Date Time Temp Pulse Resp B/P (MAP) Pulse Ox O2 Delivery O2 Flow Rate FiO2 04/28/18 09:12 20 04/28/18 06:17 2.0 04/28/18 06:00 98.2 77 105/83 (90) 90 Nasal Cannula I&O- Last 24 Hours up to 6 AM 04/28/18 06:00 Intake Total 2370 ml Output Total 1300 ml Balance 1070 ml Laboratory Data 24H LABS Laboratory Tests 2 04/27/18 19:39: Bedside Glucose (Misc Panel) 153H 04/28/18 05:54: Nucleated Red Blood Cells % (auto) 6.6H, Prothrombin Time 19.9H, Prothromb Time International Ratio 1.67, Anion Gap 6L, Glomerular Filtration Rate 19.7L, Blood Urea Nitrogen 49H, Creatinine 2.58H, Sodium Level 135L, Potassium Level 5.4H, Chloride Level 107, Carbon Dioxide Level 22, Calcium Level 8.4L, Aspartate Amino Transf (AST/SGOT) 57H, Alanine Aminotransferase (ALT/SGPT) 90H, Alkaline Phosphatase 117, Total Bilirubin 0.9, Total Protein 6.7, Albumin 2.7L, Albumin/Globulin Ratio 0.68L CBC/BMP Laboratory Tests 04/28/18 05:54 Red Blood Count 3.33 L, Mean Corpuscular Volume 95.8, Mean Corpuscular Hemoglobin 27.3, Mean Corpuscular Hemoglobin Concent 28.5 L, Red Cell Distribution Width 17.6 H, Calcium Level 8.4 L, Aspartate Amino Transf (AST/SGOT) 57 H, Alanine Aminotransferase (ALT/SGPT) 90 H, Alkaline Phosphatase 117, Total Bilirubin 0.9, Total Protein 6.7, Albumin 2.7 L Microbiology Microbiology 04/25/18 Blood Culture - Preliminary, Resulted No Growth after 72 hours. All specime... 04/24/18 Blood Culture - Preliminary, Resulted No Growth after 72 hours. All specime... 04/24/18 Blood Culture - Final, Complete Staphylococcus Capitis 04/24/18 Urine Culture - Final, Complete BRITTANY GODFREY MD Apr 28, 2018 13:32
[2018-04-28 14:00] VITALS: BP 87/51
[2018-04-28 17:27] LABS: ALBUMIN 2.4 GM/DL (3.2-5.2); CALCIUM LEVEL 8.2 MG/DL (8.8-10.2); CREATININE FOR GFR 2.73 MG/DL (0.55-1.30); GLOMERULAR FILTRATION RATE 18.4 (>45); POTASSIUM SERUM 5.2 MEQ/L (3.5-5.1); TOTAL PROTEIN 6.2 GM/DL (6.4-8.2)
[2018-04-28 22:00] VITALS: BP 92/46
[2018-04-28] MEDS ORDERED: traMADol 50 MG TAB PO ONE (22:45)
[2018-04-29] MEDS: PIPERACILLIN/TAZOBACTAM SOD 2.25 GM in D5W MINI-BAG PLUS 50 ML IV SCH ×4 (02:10→21:45)
[2018-04-29] MEDS: IPRATROPIUM 0.5MG/ALBUTEROL 2.5MG INH SOL UD 3ML (DUONEB)(J7620) NEB SCH ×5 (02:10→21:46)
[2018-04-29] MEDS: LEVOTHYROXINE 75MCG TABLET (0.075MG) PO SCH ×2 (05:19→21:46)
[2018-04-29 05:59] LABS: HEMATOCRIT 30.6 % (36.0-47.0); HEMOGLOBIN 8.5 g/dl (12.0-15.5); MEAN CORPUSCULAR HEMOGLOBIN 27.1 pg (27.0-33.0); MEAN CORPUSCULAR HGB CONC 27.8 g/dl (32.0-36.5); MEAN CORPUSCULAR VOLUME 97.5 fl (80.0-96.0); PLATELET COUNT, AUTOMATED 179 10^3/uL (150-450); RED BLOOD COUNT 3.14 10^6/uL (4.00-5.40)
[2018-04-29 06:00] VITALS: BP 90/46
[2018-04-29 06:13] LABS: INR 1.6; PROTHROMBIN TIME 19.3 SECONDS (12.1-14.4)
[2018-04-29 06:25] LABS: ALBUMIN 2.5 GM/DL (3.2-5.2); BILIRUBIN,TOTAL 0.9 MG/DL (0.2-1.0); CALCIUM LEVEL 8.3 MG/DL (8.8-10.2); CREATININE FOR GFR 3.06 MG/DL (0.55-1.30); GLOMERULAR FILTRATION RATE 16.1 (>45); POTASSIUM SERUM 5.2 MEQ/L (3.5-5.1); TOTAL PROTEIN 6.4 GM/DL (6.4-8.2)
[2018-04-29] MEDS: GABAPENTIN 100 MG CAP PO SCH ×3 (08:55→21:00)
[2018-04-29] MEDS: LORATADINE 10 MG TAB PO SCH (08:55)
[2018-04-29] MEDS: MAGNESIUM CHLORIDE 64 MG TABCR (SLO MAG) PO SCH (08:55)
[2018-04-29] MEDS: NYSTATIN 100,000 UNITS/GM TOPICAL PWD 15 GM TOP SCH ×2 (08:56→21:00)
[2018-04-29] MEDS: CAPSAICIN 0.025% CR 60 GM TOP SCH ×3 (08:56→21:00)
[2018-04-29 11:06] LABS: C REACTIVE PROTEIN QUANTITATIV 3.65 MG/DL (0.00-0.30)
--- NOTE | 2018-04-29 13:44 | IPN ---
DATE: 04/28/2018 SUBJECTIVE: Patient was seen and examined at the bedside today morning. Patient is very weak and lethargic today s compared with yesterday. Her blood pressures have been low normal. There is slight bump in her creatinine from 2 to 2.5 today. Renal function is worse, and her urine output is also slightly low. Leukocytosis got worse today. White cell count is up to 19,000. It was 15,000 yesterday. Patient reports feeling very weak and tired. OBJECTIVE: Vital signs: Temperature is 98.2 degrees Fahrenheit, blood pressure 105/83, pulse 77, respiratory rate of 20, saturating 90% on nasal cannula at 4 liters. Intake and output: Urine output recorded is 1600 mL yesterday, 300 mL so far today since overnight. Weight in the bed scale is not available. PHYSICAL EXAMINATION: GENERAL: Patient is awake, alert, oriented times two, very weak, lethargic today. HEAD AND NECK: Patient has facial and periorbital puffiness. Pupils equally round and reactive to light. Mucous membranes are moist. Neck is supple. I could not appreciate the jugular venous distention (JVD). CARDIOVASCULAR: S1, S2. Edema 2+ of the bilateral lower extremities. RESPIRATORY: Decreased breath sounds at the bases; otherwise no active rales or rhonchi. ABDOMEN: Morbidly obese. Abdominal wall edema was noted, especially in the abdominal pannus, which is hanging on the left side. MUSCULOSKELETAL: Patient has erythema and mild amount of tenderness in the bilateral lower extremities and 2+ edema of the bilateral lower extremities, which is slightly improving today as compared with yesterday. CENTRAL NERVOUS SYSTEM: Patient is drowsy and sleepy today. She moves upper extremities to commands. LABORATORY REVIEW: CBC showed a WBC of 19.1, hemoglobin is 9.1, platelets are 244. INR is 1.67. BMP showed sodium 135, potassium 5.4, chloride 107, bicarbonate 22, BUN 49, creatinine is 2.5, calcium is 8.4. AST 57, ALT is 90, albumin is 2.7. Microbiology: Repeat blood cultures from April 25 are negative. IMAGING: No new imaging is available. CURRENT INPATIENT MEDICATIONS: Patient's medications were all reviewed by me. Intravenous (IV) vancomycin has been stopped. She continues to be on Zosyn 2.25 gram IV every 8 hours. Calcitonin has been stopped. I have also stopped her Lasix 40 mg twice a day, which she was receiving yesterday. No other change in the medications today as compared with yesterday. ASSESSMENT AND PLAN: 1. Acute renal failure superimposed on chronic kidney disease, stage III. Patient's renal function initially was secondary to shock and hypotension; however, she had recovered after getting blood and fluid resuscitation in the intensive care unit (ICU). She was actually on gentle IV diuresis. Today she is hypotensive, and her renal function is worse. Her diuretics have been stopped. 2. Status post shock, which was a combination of hemorrhagic and septic shock. One out of two blood cultures were growing Staphylococcus capitis. She continues to be on Zosyn. Vancomycin has been stopped by the primary team. Hemoglobin level is within the acceptable range. Patient again has soft blood pressures. If needed, she can be restarted on low dose of Levophed. Diuretics have been stopped. 3. Chronic diastolic congestive heart failure. Patient is significantly volume overloaded; however, because of worsening renal failure and hypotension, diuretics have been stopped. 4. Atrial fibrillation. She is not a candidate for anticoagulation at this time, and she cannot receive any beta blockers at this time; however, her pulse rate is within the acceptable limits. 5. Cellulitis of bilateral lower extremities. Patient is currently on IV vancomycin and Zosyn. Vancomycin was therapeutic yesterday; however, it has been stopped today. 6. Hyperkalemia. Hyperkalemia has returned because of worsening renal failure. Patient can get Veltassa 16.4 grams by mouth as needed for potassium more than 5.5.
[2018-04-29 14:00] VITALS: BP 105/52
--- NOTE | 2018-04-29 15:37 | IPNPDOC ---
Date Seen The patient was seen on 04/29/18. Progress Note SUBJECTIVE: Patient complains of fatigue and weakness she tells me that her pain is better controlled but then she cries and tells me that it's too painful for her to get out of bed and that she does not want to get out of bed today. She denies any change in her status how she feels from yesterday OBJECTIVE PHYSICAL EXAMINATION: VITAL SIGNS: Please see below. GENERAL: Disheveled super morbidly obese elderly woman lying on her left side once again she is in no acute distress she is emotionally labile HEENT: Difficult to assess for elevation CVP secondary to body habitus she ashley ears to have moist mucous membranes cranial nerves grossly intact CARDIOVASCULAR: Heart sounds are distant secondary to body habitus S1-S2 appears regular RESPIRATORY: Breath sounds are distant secondary to body habitus ABDOMINAL: Grossly obese. No tenderness to palpation EXTREMITIES: 1+ pitting edema improved erythema of the bilateral feet LABORATORY DATA, IMAGING STUDIES, MICROBIOLOGY: Please see below. Echocardiogram: Patient initially refused reordered at this time DVT prophylaxis ordered?: Sequentials teds ASSESSMENT AND PLAN: This is a 68-year-old female who presented with back pain weight gain found to be in shock with T12 compression fracture. PROBLEMS: 1. Shock hemorrhagic versus septic: She did have leukocytosis which is improving, we have no definite source her feet were suspicious for possible soft tissue infection. 1 of 2 blood cultures positive which I suspect is more contaminated she has improved on antibiotics. Given her acute anemia right flank fluid collection recent fall and anticoagulation there was certainly concern for retroperitoneal hematoma as well, anticoagulations and antiplatelets have been held. At this time she is hemodynamically stable 2. Anemia: Possibly acute on chronic secondary to retroperitoneal bleed we are holding her anticoagulation peripheral smear and iron studies are suggestive of a combination of iron deficiency and anemia of chronic disease I suspect acute blood loss on top of this as well she's been transfused 3 units of PRBCs total we will continue to monitor H&H closely and has remained stable. If she truly has a retroperitoneal hematoma I suspect it has temponaded on itself off . Ideally like to keep hemoglobin greater than 8 given her slightly abnormal troponin upon presentation. She has remained stable 3. Diastolic congestive heart failure: No recent echocardiogram within the last year patient refused her initial attempt we will reattempt 1 after some counseling. She does appear to be less decompensated after some diuresis. She did have a slightly abnormal troponin which has plateaued I would not be surpri sed for it to be somewhat elevated in the setting of demand ischemia EKG however does not appear significantly different. Her baseline oxygen requirement is 1 L she is currently requiring slightly more. 4. Back pain: Likely secondary to T12 compression fracture also possibly a small retroperitoneal hematoma either way management is supportive and close monitoring. I have started her on low-dose Roxicodone and gabapentin and encourage her to be out of bed work with physical therapy now that her blood pressure is more stabilized 5. Elevated INR: Resolved, The patient does normally take Pradaxa at home however the INR appears to be disproportionately elevated is unclear to me why this is the case, perhaps her renal function deteriorated in the setting of sepsis or hemorrhage causing her Pradaxa dosed enter a toxic range and further elevating her INR. We'll hold her Tylenol and statin as her liver function tests appear to be trending down today she likely had some acute hepatitis in the setting of her hypotension 6. Hyperkalemia: Remains slightly elevated continue to monitor she does have some acute kidney injury associated with this 7. Acute on chronic kidney failure: Was improving however after some diuresis she did have an acute bump in her creatinine it is strange given that she did not massively diuresis we will hold her diuretics nephrotoxic medications at this time her renal function very closely. Nephrology's help is greatly appreciated 8. Super morbid obesity: Complicating care, likely obesity hypoventilation syndrome and likely obstructive sleep apnea as well as well as venous stasis 9. COPD: She is on chronic O2 1 L at the present time she is requiring more o xygen I suspect related to some pulmonary edema and not secondary to acute decompensation of her COPD we have started her on nebulizer treatments 10. Coronary artery disease: She is asymptomatic at this time she is volume up her EKG was unchanged we are holding her aspirin she is not on a beta alfreda she is stable on a symptom medic at this time 11. Paroxysmal atrial fibrillation: She was hypotensive at admission I did hold her amiodarone as well as her metoprolo,l potentially restarting in coming days. We're also holding her Pradaxa in the setting of acute anemia 12. Diabetes: Sliding scale and fingersticks hold home metformin 13. Hypothyroidism: Continue with Synthroid Prognosis: Guarded, the patient refused to get out of bed and participate with physical therapy I suspect she'll end up requiring jail facility VS, I&O, 24H, Leanne Vital Signs/I&O Vital Signs Date Time Temp Pulse Resp B/P (MAP) Pulse Ox O2 Delivery O2 Flow Rate FiO2 04/29/18 14:00 96.8 70 22 105/52 (69) 93 Nasal Cannula 3.0 I&O- Last 24 Hours up to 6 AM 04/29/18 06:00 Intake Total 940 ml Output Total 350 ml Balance 590 ml Laboratory Data 24H LABS Laboratory Tests 2 04/28/18 16:49: Anion Gap 7L, Glomerular Filtration Rate 18.4L, Blood Urea Nitrogen 50H, Creatinine 2.73H, Sodium Level 135L, Potassium Level 5.2H, Chloride Level 107, Carbon Dioxide Level 21, Calcium Level 8.2L, Aspartate Amino Transf (AST/SGOT) 45H, Alanine Aminotransferase (ALT/SGPT) 76, Alkaline Phosphatase 105, Total Bilirubin 1.0, Total Protein 6.2L, Albumin 2.4L, Albumin/Globulin Ratio 0.63L 04/29/18 05:39: Anion Gap 7L, Glomerular Filtration Rate 16.1L, Blood Urea Nitrogen 53H, Creatinine 3.06H, Sodium Level 134L, Potassium Level 5.2H, Chloride Level 105, Carbon Dioxide Level 22, Calcium Level 8.3L, Aspartate Amino Transf (AST/SGOT) 40H, Alanine Aminotransferase (ALT/SGPT) 73, Alkaline Phosphatase 106, Total Bilirubin 0.9, Total Protein 6.4, Albumin 2.5L, Albumin/Globulin Ratio 0.64L, Nucleated Red Blood Cells % (auto) 3.0H, Prothrombin Time 19.3H, Prothromb Time International Ratio 1.60, C-Reactive Protein, Quantitative 3.65H CBC/BMP Laboratory Tests 04/28/18 16:49 Calcium Level 8.2 L, Aspartate Amino Transf (AST/SGOT) 45 H, Alanine Aminotransferase (ALT/SGPT) 76, Alkaline Phosphatase 105, Total Bilirubin 1.0, Total Protein 6.2 L, Albumin 2.4 L 04/29/18 05:39 Calcium Level 8.3 L, Aspartate Amino Transf (AST/SGOT) 40 H, Alanine Aminotransferase (ALT/SGPT) 73, Alkaline Phosphatase 106, Total Bilirubin 0.9, Total Protein 6.4, Albumin 2.5 L, Red Blood Count 3.14 L, Mean Corpuscular Volume 97.5 H, Mean Corpuscular Hemoglobin 27.1, Mean Corpuscular Hemoglobin Concent 27.8 L, Red Cell Distribution Width 17.5 H Microbiology Microbiology 04/25/18 Blood Culture - Preliminary, Resulted No Growth after 72 hours. All specime... 04/24/18 Blood Culture - Final, Complete NO GROWTH AFTER 5 DAYS 04/24/18 Blood Culture - Final, Complete Staphylococcus Capitis 04/28/18 MRSA Screen - Final, Complete 04/24/18 Urine Culture - Final, Complete BRITTANY GODFREY MD Apr 29, 2018 15:37
[2018-04-29 16:47] LABS: ABG HCO3 21.4 MEQ/L (22.0-26.0); ABG O2 SATURATION 90.7 % (95.0-99.0); ABG STANDARD HCO3 17.9 MEQ/L (22.0-26.0); ABG TOTAL CO2 23.4 MEQ/L (23.0-31.0)
[2018-04-29 16:50] LABS: ABG pH (ARTERIAL) 7.135 UNITS (7.350-7.450)
[2018-04-29] MEDS ORDERED: LORazepam 2 MG/ML VIAL (J2060) IV PRN (17:30)
[2018-04-29] MEDS ORDERED: MORPHINE 4 MG/ML 1ML VIAL/SYRINGE (J2270) IV PRN (17:30)
[2018-04-29] MEDS ORDERED: MORPHINE 10MG/0.5ML ORAL CONCENTRATE SOLUTION U/D SL PRN (17:30)
[2018-04-29] MEDS ORDERED: LORazepam 1 MG TAB PO PRN (17:30)
[2018-04-29] MEDS ORDERED: SCOPOLAMINE 1MG TRANSDERMAL PATCH TOP PRN (17:30)
[2018-04-29 17:31] LABS: ALBUMIN 2.9 GM/DL (3.2-5.2); BILIRUBIN,TOTAL 1.1 MG/DL (0.2-1.0); CALCIUM LEVEL 8.6 MG/DL (8.8-10.2); CREATININE FOR GFR 3.28 MG/DL (0.55-1.30); GLOMERULAR FILTRATION RATE 14.9 (>45); POTASSIUM SERUM 5.5 MEQ/L (3.5-5.1); TOTAL PROTEIN 7.1 GM/DL (6.4-8.2)
--- NOTE | 2018-04-29 17:33 | REP ---
Clinical: Hypoxia and low O2 saturations. Findings: Near complete opacification of the left hemithorax is appreciated the right hemithorax demonstrates extensive pulmonary vascular congestion with cephalization and indistinct pulmonary vasculature along with interstitial edema. Findings are consistent with pulmonary edema including large left pleural effusion. Impression: Pulmonary edema as described above. Electronically Signed by Linden Bruno MD 04/29/2018 05:25 P
--- NOTE | 2018-04-30 09:10 | IPN ---
DATE: 04/29/2018 Mrs. Magaña is seen this morning on her bedside. She is quite uncomfortable in the bed and reports pain everywhere. Her blood pressure has been somewhat low, however, it is checked in the forearm. She is currently on 4 liters of oxygen due to hypoxemia. She has no fever or chills. On physical examination, she is a morbidly obese lady laying in the bed on her left side. Temperature is 97.4 degrees Fahrenheit, heart rate 75 per minute and respiratory rate 18 per minute. Blood pressure 90/46 mmHg and oxygen saturation 90% on 4 liters of oxygen. Intake and output records from yesterday showed total intake 900 and output 600 ml. Today her urine output seems to be quite low. Her head is atraumatic. Neck veins are extremely difficult to be assessed due to laying on the side and morbid obesity. Her heart sounds are distant and lungs have poor inspiratory effort with diminished breath sounds bilaterally. Abdomen is obese and nontender. Extremities have chronic stasis changes and no cyanosis or clubbing. Her lower extremity edema is at least 2+. Neurologically, she is awake and able to answer questions. She can move all her extremities. She is in quite a bit of pain when she moves. Today's labs show WBC count 13.0, hemoglobin 8.5 and hematocrit 30.6. Platelets 179. Sodium 134, potassium 5.2, CO2 22, BUN 53 and creatinine 3.06. Her last blood gas is from April 24 when pH was 7.30, pCO2 36, CO2 86 and bicarb 17.5. PROBLEMS: 1. Acute renal failure superimposed on chronic kidney disease. She has slight worsening of kidney function over the last couple of days. The patient has baseline advanced chronic kidney disease and now her kidney function is worsened most likely related to sepsis. She is not a suitable candidate for dialysis due to her hypotension and multiple comorbid conditions. I think any attempt to dialyze her will be futile and she is likely to crash and within a short period of attempting dialysis. 2. Acute on chronic congestive heart failure. There is long history of chronic congestive heart failure and now her volume status is worsening due to acute renal failure and hypotension. We can try to diurese her with intravenous Lasix; however, I am not very optimistic about the response to diuretics due to low blood pressure. She is not a suitable candidate for dialysis due to hypotension and multiple comorbid conditions. 3. Sepsis. Her leukocytosis has improved slightly; however, blood pressure remains low and now she has decreased urine output which is again an indication of sepsis. She has been treated with antibiotics and remains on Zosyn, though source of sepsis is still not clear. It is likely intra-abdominal. She is not a surgical candidate and even doing a CAT scan on her will be quite difficult. She is not a candidate for IV contrast. In view of multiple comorbid conditions and multiorgan failure, her prognosis remains extremely poor. She is a suitable candidate for comfort measures and hospice care.
== END 2018-04-30 01:05 | disposition expired | DRG 871 ==
LOC: EDBD 10:27 → M ED 10:27 → M ED INP 13:49 → M PCU 15:39 → M ICU 04-25 05:56 → M MS5PR 04-26 13:10
PROVIDERS: ADMIT Internal Medicine; ATTEND Internal Medicine
PROC: 30233N1 Transfusion of Nonautologous Red Blood Cells into Peripheral Vein, Percutaneous Approach (ICD-10-PCS; principal; 2018-04-25)
DX: A41.9 Sepsis, unspecified organism (principal); R65.21 Severe sepsis with septic shock; I50.33 Acute on chronic diastolic (congestive) heart failure; J96.91 Respiratory failure, unspecified with hypoxia; J96.92 Respiratory failure, unspecified with hypercapnia; N17.9 Acute kidney failure, unspecified; I13.0 Hypertensive heart and chronic kidney disease with heart failure and stage 1 through stage 4 chronic kidney disease, or unspecified chronic kidney disease; Z68.44 Body mass index [BMI] 60.0-69.9, adult; E66.2 Morbid (severe) obesity with alveolar hypoventilation; D62 Acute posthemorrhagic anemia; L03.115 Cellulitis of right lower limb; L03.116 Cellulitis of left lower limb; S36.892A Contusion of other intra-abdominal organs, initial encounter; S22.089A Unspecified fracture of T11-T12 vertebra, initial encounter for closed fracture; E87.2 Acidosis; E78.5 Hyperlipidemia, unspecified; J44.9 Chronic obstructive pulmonary disease, unspecified; I25.10 Atherosclerotic heart disease of native coronary artery without angina pectoris; I48.0 Paroxysmal atrial fibrillation; R57.8 Other shock; R32 Unspecified urinary incontinence; M54.5 Low back pain; E87.5 Hyperkalemia; N18.3 Chronic kidney disease, stage 3 (moderate); E86.0 Dehydration; E11.22 Type 2 diabetes mellitus with diabetic chronic kidney disease; R15.9 Full incontinence of feces; Z99.81 Dependence on supplemental oxygen; Z95.5 Presence of coronary angioplasty implant and graft; Z87.891 Personal history of nicotine dependence; Z90.49 Acquired absence of other specified parts of digestive tract; Z88.2 Allergy status to sulfonamides; Z88.8 Allergy status to other drugs, medicaments and biological substances; Z79.01 Long term (current) use of anticoagulants; Z79.82 Long term (current) use of aspirin; Z79.84 Long term (current) use of oral hypoglycemic drugs; Z79.899 Other long term (current) drug therapy; W18.09XA Striking against other object with subsequent fall, initial encounter